=== PATIENT | male | born 1945 | race Caucasian/White ===

== ENCOUNTER → 2018-07-08 09:02 | Outpatient (CLI) | payer MEDICARE, MEDICAID, SELFPAY ==
[2018-07-08 10:01] LABS: Alanine Aminotransferase 33 IU/L (21-72); Albumin 4.6 g/dL (3.5-5.0); Albumin Globulin Ratio 1.5 (1.0-2.8); Alkaline Phosphatase 71 U/L (38-126); Aspartate Aminotransferase 27 IU/L (17-59); BUN Creatinine Ratio 17.8 (6-22); Blood Urea Nitrogen 16 mg/dL (9-20); Calcium 9.4 mg/dL (8.4-10.2); Carbon Dioxide 27 mmol/L (22-32); Chloride 105 mmol/L (98-107); Cholesterol 139 mg/dL (140-199); Estimated Glomerular Filt Rate > 60.0 mL/min (>60); Globulin 3.1 g/dL (1.7-4.1); Glucose 105 mg/dL (80-110); HDL Cholesterol 58 mg/dL (40-60); HEMOLYSIS < 15 (0-50); LDL Cholesterol Calculated 64 mg/dL (<100); Potassium 4.4 mmol/L (3.4-5.1); Sodium 141 mmol/L (137-145); Total Protein 7.7 g/dL (6.3-8.2); Triglycerides 86 mg/dL (35-150)
[2018-07-08 10:57] LABS: Thyroid Stimulating Hormone 1.36 uIU/mL (0.47-4.68)
== END ==
PROVIDERS: PCP Physician Assistant; Visit Provider Physician Assistant
DX: E78.5 Hyperlipidemia, unspecified (principal); Z51.81 Encounter for therapeutic drug level monitoring
CPT/HCPCS: 36415; 80053; 80061; 84443

== ENCOUNTER → 2018-07-27 08:46 | Outpatient (CLI) | payer MEDICARE, MEDICAID, SELFPAY ==
--- NOTE | 2018-07-27 08:49 | DI.RAD.S_ITS ---
PROCEDURE: XR KNEE RT 3V INDICATIONS: Right knee pain - please do one weight bearing view TECHNIQUE: 3 views of the knee were acquired. COMPARISON: [facility], , KNEE 3V RIGHT, 07/31/2016, 8:12. FINDINGS: Bones: No fractures or dislocations. No suspicious bony lesions. Soft tissues: No joint effusion. No suspicious soft tissue calcifications. Vascular calcifications. IMPRESSION: No acute fractures or dislocations. Please note, the lateral view is weight bearing. Dictated by: Mahin Hunt M.D. on 07/27/2018 at 10:19 Approved by: Mahin Hunt M.D. on 07/27/2018 at 10:20
--- NOTE | 2018-07-27 08:49 | DI.RAD.S_ITS ---
PROCEDURE: XR KNEE LT 3V INDICATIONS: Left knee pain - please do one weight bearing view TECHNIQUE: 3 views of the knee were acquired. COMPARISON: None. FINDINGS: Bones: No fractures or dislocations. No suspicious bony lesions. Soft tissues: No joint effusion. No suspicious soft tissue calcifications. Vascular calcifications. IMPRESSION: No acute fractures or dislocations. Dictated by: Mahin Hunt M.D. on 07/27/2018 at 10:21 Approved by: Mahin Hunt M.D. on 07/27/2018 at 10:21
[2018-07-27 10:03] LABS: Add Manual Diff / Slide Review NO; Basophils Percent Auto 0.7 % (0-2); Eosinophils Percent Auto 0.2 % (2-4); Hematocrit 51.4 % (41-53); Hemoglobin 17.4 g/dL (13.5-17.5); Lymphocytes Percent Auto 19.3 % (25-40); Mean Corpuscular HGB Conc 33.9 % (30-36); Mean Corpuscular Hemoglobin 31.6 PG (26-34); Mean Corpuscular Volume 93.2 fL (80-100); Monocytes Percent Auto 6.9 % (3-14); Neutrophils Absolute Auto 7800 /uL (3000-5900); Neutrophils Percent Auto 72.9 % (50-75); Platelet Count 243 X10^3/uL (150-400); Red Blood Cell Count 5.52 X10^6/uL (4.5-5.9); Red Cell Distribution Width 13.6 % (11.6-14.8); White Blood Cell Count 10.7 X10^3/uL (4.5-11.0)
[2018-07-27 10:49] LABS: Ferritin 39.6 ng/mL (17.9-464)
[2018-07-27 11:03] LABS: Vitamin B12 237 pg/mL (239-931)
[2018-07-27 11:13] LABS: HEMOLYSIS 49 (0-50); Iron 115 ug/dL (49-181)
[2018-07-27 11:24] LABS: Percent Iron Saturation 32 % (20-50); Total Iron Binding Capacity 365 ug/dL (261-462); Transferrin 299 mg/dL (206-381)
== END ==
PROVIDERS: PCP Physician Assistant; Visit Provider Physician Assistant
DX: M25.561 Pain in right knee (principal); M25.562 Pain in left knee
CPT/HCPCS: 36415; 73562; 82607; 82728; 83540; 83550; 85025

== ENCOUNTER 2018-08-25 09:03 | Emergency (ER) | payer MEDICARE, MEDICAID, SELFPAY ==
[2018-08-25 09:20] VITALS: BMI 22.2
--- NOTE | 2018-08-25 09:20 | ED.MALEGU ---
HPI - Male Genitourinary General Chief complaint: Urogenital-Male Stated complaint: Bloody Urine Time Seen by Provider: 08/25/18 09:19 Source: patient Mode of arrival: ambulatory Limitations: no limitations History of Present Illness HPI Narrative: Patient is a 73-year-old male presenting with jaylon hematuria. He says it started this morning. He has had this in the past required of Eagle catheter for 6 months before he had at least a partial prostatectomy. As he now does not want a Eagle catheter although I have explained that he absolutely needs 1. He is agreeable. He denies abdominal pain nausea vomiting or flank pain. Related Data Home Medications Medication Instructions Recorded Confirmed aspirin 325 mg PO QDAY #0 05/31/13 08/10/18 Previous Rx's Medication Instructions Recorded pneumoc 13-jose conj-dip cr(PF) 0.5 ml IM X1 #1 ea 12/29/17 [Prevnar 13 (PF)] atorvastatin 40 mg tablet 40 mg PO HS #90 tab 06/11/18 Adult Diapers #30 each 08/10/18 Allergies Allergy/AdvReac Type Severity Reaction Status Date / Time No Known Drug Allergies Allergy Verified 08/25/18 09:19 Review of Systems Review of Systems All systems reviewed & are unremarkable except as noted in HPI and below Constitutional Denies chills, Denies fever(s), Denies lethargy and Denies weakness Cardiovascular Denies chest pain, Denies irregular heart rhythm, Denies lightheadedness, Denies palpitations, Denies dyspnea, Denies dyspnea on exertion and Denies orthopnea Respiratory Denies cough, Denies dyspnea, Denies dyspnea on exertion and Denies wheezing Gastrointestinal Gastrointestinal: Reports as per HPI Genitourinary Reports as per HPI and Reports hematuria Musculoskeletal Denies back pain, Denies muscle weakness, Denies numbness and Denies tingling Integumentary/Breasts Denies pruritus, Denies erythema, Denies rash and Denies wounds Neurologic Denies confusion, Denies numbness, Denies tingling and Denies weakness Psychiatric Denies anxiety, Denies confusion, Denies depression, Denies homicidal ideation and Denies suicidal ideation Endocrine Denies palpitations Allergic/Immunologic Denies wheezing PFSH Medical History Arthritis (Chronic) BPH (benign prostatic hyperplasia) (Chronic) Depression (Chronic) Hyperlipemia (Chronic) Hypertension (Chronic) Osteopenia (Chronic) Osteoporosis (Chronic) Colon polyps (Resolved) Hernia (Resolved) History of alcohol abuse (Resolved 1980) Shoulder pain (Resolved) Urinary retention (Resolved ~04/2017) Surgical History Hx of cystoscopy (Acute 04/2017) Hx of transurethral resection of prostate (Resolved 04/2017) History of cataract removal with insertion of prosthetic lens (02/2016) Status post colectomy (2010) Status post hernia repair (05/2013) Family History Father Alcohol abuse Smoker Mother Osteoporosis Social History Smoking Status: Never smoker second hand exposure: No alcohol intake: former (the last drink I had was in April of 1981.) substance use type: does not use Exam Initial Vital Signs Initial Vital Signs: Vital Signs Pulse Rate 54 L 08/25/18 10:50 Respiratory Rate 20 08/25/18 10:50 Blood Pressure 160/97 H 08/25/18 10:50 Pulse Oximetry 99 08/25/18 10:50 GENERAL: Well-appearing, well-nourished and in no acute distress. HEENT: Head atraumatic,EOMI, pupils reactive, face symmetric, moist mucous membranes CARDIOVASCULAR: Regular rate and rhythm without murmurs, rubs or gallops. RESPIRATORY: Breath sounds equal bilaterally, no wheezes rales or rhonchi. ABDOMEN: Soft, nontender. Normoactive bowel sounds all 4 quadrants. No guarding or rebound. : Gross hematuria EXTREMITIES: Normal range of motion, no clubbing or edema. Neurovascularly intact NEUROLOGICAL: Alert and oriented x4.Normal gait and speech. Cranial nerves II through XII grossly intact. SKIN: Warm, dry, no laceration, no petechiae, no rashes or lesions. Course Orders Ordered: ED Orders 08/25/18 10:10 Basic Metabolic Panel Stat Complete Blood Count AUTO DIFF Stat Vital Signs - 8 hr 08/25/18 10:50 Pulse Rate 54 L Respiratory Rate 20 Blood Pressure 160/97 H Pulse Oximetry 99 MDM - Male Genitourinary Lab Data Result diagrams: 08/25/18 10:10 08/25/18 10:10 Lab Results 08/25/18 08/25/18 Range/Units 10:10 10:10 WBC 8.6 (4.5-11.0) X10^3/uL RBC 5.19 (4.5-5.9) X10^6/uL Hgb 16.5 (13.5-17.5) g/dL Hct 47.3 (41-53) % MCV 91.1 (80-100) fL MCH 31.7 (26-34) PG MCHC 34.8 (30-36) % RDW 14.0 (11.6-14.8) % Plt Count 212 (150-400) X10^3/uL Neut % (Auto) 73.3 (50-75) % Lymph % (Auto) 18.8 L (25-40) % [place] % (Auto) 6.7 (3-14) % Eos % (Auto) 0.5 L (2-4) % Baso % (Auto) 0.7 (0-2) % Neut # (Auto) 6300 H (9254-1311) /uL Sodium 144 (137-145) mmol/L Potassium 3.9 (3.4-5.1) mmol/L Chloride 109 H (98-107) mmol/L Carbon Dioxide 23 (22-32) mmol/L BUN 15 (9-20) mg/dL Creatinine 0.80 (0.66-1.25) mg/dL Estimated GFR > 60.0 (>60) mL/min BUN/Creatinine Ratio 18.8 (6-22) Glucose 98 (80-110) mg/dL Calcium 9.2 (8.4-10.2) mg/dL MDM Narrative Medical decision making narrative: Patient can no longer handle the Eagle catheter or irrigation. His the fluid has cleared up quite a bit although still slightly dark. I have offered to slow the fluid down however he is adamant about leaving and does not want a Eagle catheter in. I have discussed with them that he will likely return and need Eagle catheter placement. He understands he agrees he would still like a Eagle catheter pulled a like to go. The patient is clinically sober, free from distracting injury, appears to have intact insight, judgment and reason. Does not meet criteria for involuntary hospitalization. Patient has the capacity to make decisions. Discharge Plan Departure Patient Disposition: Home Clinical Impression: Hematuria Discharge Date/Time: 08/25/18 10:53 Interventions: ED Discharge Assessment Last Done: 08/25/18 10:50 Instructions: DI for Hematuria Activity Restrictions/Additional Instructions: *You have been diagnosed with hematuria *What to do: He may require Eagle catheter placement if blood returns or if you are unable to pee. Inability to pee can cause rupture of bladder. *Continue to take medications as directed *Follow up with your primary care provider in 2-3 days *Return to ER if you should have inability to pee, but gross blood or any new, worsening or concerning symptoms Prescriptions: No Action Adult Diapers Qty: 30 RF: 12 aspirin 325 MG tablet,delayed release (DR/EC) 325 mg PO QDAY Qty: 0 RF: 0 pneumoc 13-jose conj-dip cr(PF) [Prevnar 13 (PF)] 0.5 ML syringe 0.5 ml IM X1 Qty: 1 RF: 0 atorvastatin 40 mg tablet 40 mg PO HS Qty: 90 RF: 0 Referrals: Katia Frances PA-C [Primary Care Provider] -
--- NOTE | 2018-08-25 10:00 | PC.NURSE ---
bladder irrigation started per provider verbal orders. pt tolerating irrigation treatment.
[2018-08-25 10:32] LABS: Add Manual Diff / Slide Review NO; Basophils Percent Auto 0.7 % (0-2); Eosinophils Percent Auto 0.5 % (2-4); Hematocrit 47.3 % (41-53); Hemoglobin 16.5 g/dL (13.5-17.5); Lymphocytes Percent Auto 18.8 % (25-40); Mean Corpuscular HGB Conc 34.8 % (30-36); Mean Corpuscular Hemoglobin 31.7 PG (26-34); Mean Corpuscular Volume 91.1 fL (80-100); Monocytes Percent Auto 6.7 % (3-14); Neutrophils Absolute Auto 6300 /uL (3000-5900); Neutrophils Percent Auto 73.3 % (50-75); Platelet Count 212 X10^3/uL (150-400); Red Blood Cell Count 5.19 X10^6/uL (4.5-5.9); White Blood Cell Count 8.6 X10^3/uL (4.5-11.0)
[2018-08-25 10:44] LABS: BUN Creatinine Ratio 18.8 (6-22); Blood Urea Nitrogen 15 mg/dL (9-20); Calcium 9.2 mg/dL (8.4-10.2); Carbon Dioxide 23 mmol/L (22-32); Chloride 109 mmol/L (98-107); Estimated Glomerular Filt Rate > 60.0 mL/min (>60); Glucose 98 mg/dL (80-110); HEMOLYSIS < 15 (0-50); Potassium 3.9 mmol/L (3.4-5.1); Sodium 144 mmol/L (137-145)
[2018-08-25 10:50] VITALS: BP 160/97; PULSE 54; RESP 20; O2SAT 99
== END 2018-08-25 10:53 | disposition home or self-care (01) ==
PROVIDERS: Emergency Provider Emergency Medicine; Family Provider Physician Assistant; PCP Physician Assistant
DX: R31.9 Hematuria, unspecified (principal)
CPT/HCPCS: 51701; 80048; 85025; 99283

== ENCOUNTER 2018-09-01 09:05 | Inpatient (IN) | payer MEDICARE, MEDICAID, SELFPAY ==
[2018-09-01] VITALS (9 sets, daily range): BP systolic 114–161; BP diastolic 64–88; PULSE 76–99; RESP 16–22; TEMP 36.2–36.6; O2SAT 97–100; BMI 21.0
--- NOTE | 2018-09-01 09:53 | ED.ABDPAIN ---
HPI - Abdominal Pain General Chief Complaint: Abdominal Pain Stated Complaint: everything Time Seen by Provider: 09/01/18 09:37 Source: patient Mode of arrival: ambulatory Limitations: no limitations History of Present Illness HPI narrative: 73-year-old pleasantly confused male presents with a chief complaint of severe abdominal discomfort for the past few days. He states that he has had no appetite and has had nausea and vomiting. He states he has not eaten anything in days. He is dizzy, weak and lightheaded. He was seen a few days ago for hematuria and was told he needed a Eagle catheter but insisted on it being removed. He presents today under the above circumstances. He denies any fever or chills. He has nausea but no vomiting. He denies any change in bowel habits. He admits to bloody urine MD complaint: abdominal pain Onset (ago): day(s) Pain Consistency: constant Location: diffuse Severity: moderate Quality: cramping and aching Radiation: none Migration to: no migration Relieving factors: nothing Exacerbating factors: movement Associated symptoms: nausea and anorexia Related Data Home Medications Medication Instructions Recorded Confirmed aspirin 325 mg PO BEDTIME #0 05/31/13 09/01/18 Previous Rx's Medication Instructions Recorded atorvastatin 40 mg tablet 40 mg PO HS #90 tab 06/11/18 Adult Diapers #30 each 08/10/18 Allergies Allergy/AdvReac Type Severity Reaction Status Date / Time No Known Drug Allergies Allergy Verified 08/25/18 09:19 Review of Systems Review of Systems All systems reviewed & are unremarkable except as noted in HPI and below Constitutional Denies chills, Reports fatigue, Denies fever(s), Denies lethargy, Reports poor appetite and Reports weakness Eyes Denies change in vision, Denies eye discharge, Denies irritation and Denies loss of vision ENT Ears, Nose, Mouth, and Throat: Denies change in voice, Denies neck pain and Denies sore throat Cardiovascular Denies chest pain, Denies irregular heart rhythm, Denies lightheadedness, Denies palpitations, Denies dyspnea, Denies dyspnea on exertion and Denies orthopnea Respiratory Denies cough, Denies dyspnea, Denies dyspnea on exertion and Denies wheezing Gastrointestinal Gastrointestinal: Reports abdominal pain, Denies change in bowel habits, Denies diarrhea, Reports nausea and Denies vomiting Genitourinary Reports hematuria, Denies flank pain, Denies urinary incontinence and Denies urinary urgency Musculoskeletal Denies neck pain Integumentary/Breasts Denies pruritus, Denies erythema, Denies rash and Denies wounds Neurologic Denies confusion, Denies loss of vision and Reports weakness Psychiatric Denies anxiety, Denies confusion, Denies depression, Denies homicidal ideation and Denies suicidal ideation Endocrine Reports fatigue and Denies palpitations Hematologic/Lymphatic Denies easy bruising Allergic/Immunologic Denies wheezing PFSH Medical History Arthritis (Chronic) BPH (benign prostatic hyperplasia) (Chronic) Depression (Chronic) Hyperlipemia (Chronic) Hypertension (Chronic) Osteopenia (Chronic) Osteoporosis (Chronic) Colon polyps (Resolved) Hernia (Resolved) History of alcohol abuse (Resolved 1980) Shoulder pain (Resolved) Urinary retention (Resolved ~04/2017) Surgical History Hx of cystoscopy (Acute 04/2017) Hx of transurethral resection of prostate (Resolved 04/2017) History of cataract removal with insertion of prosthetic lens (02/2016) Status post colectomy (2010) Status post hernia repair (05/2013) Family History: Reviewed 09/01/18 by Stephanie Macias MD Social History Smoking Status: Never smoker second hand exposure: No alcohol intake: former substance use type: does not use Exam Narrative Exam Narrative: 73-year-old male appears in distress, generally unwell, disheveled, confused, clearly dehydrated with dry mucous membranes Initial Vital Signs Initial Vital Signs: Vital Signs Pulse Rate 99 H 09/01/18 09:10 Respiratory Rate 18 09/01/18 09:10 Blood Pressure 152/85 H 09/01/18 09:10 Pulse Oximetry 100 09/01/18 09:10 Const General: cooperative, well developed, in distress, disheveled, frail appearing and ill appearing Nutritional Appearance: well nourished Orientation: alert, awake, oriented x3 and not confused HENMT Head: normocephalic and atraumatic Ears: external ears normal and TM's normal bilaterally Nose: external nose normal and No nasal discharge Face and sinus: sinuses nontender, face symmetric, no sinus tenderness and dry mucous membranes Teeth and gingiva: dentition normal Throat: tonsils normal and uvula midline Eyes General: appearance normal, both eyes and all related structures Eyelids: eyelids normal Conjunctivae: conjunctivae normal Sclera: sclerae normal Pupils: PERRL EOM: EOM intact bilaterally Neck Neck: normal visual inspection, trachea midline, No lymphadenopathy, No midline deformity and No JVD Lymphatic: No lymphedema Chest Chest: normal inspection of the chest Resp Effort & Inspection: normal respiratory effort, able to speak in complete sentences, no respiratory distress and no use of accessory muscles Auscultation: clear to auscultation bilaterally, no rales, no rhonchi and no wheezes Cardio Rate: regular rate Rhythm: regular rhythm Heart Sounds: no click, no gallops, no murmurs and no rubs Pulses: normal peripheral pulses GI Inspection: distended Palpation: soft, no hepatosplenomegaly, No guarding, No pulsatile mass and No tender Auscultation: normal bowel sounds Back/Spine/Pelvis Back: No CVA tenderness Cervical Spine: cervical ROM normal and No pain with cervical ROM Thoracic/Lumbar Spine: thoracic and lumbar spine normal to inspection Skin General: no rashes or lesions noted, No jaundice and No petechiae Neuro General: alert, awake, gait normal and no focal motor deficits Speech: speech normal Gait: normal gait Sensory Exam: no sensory deficits noted Extrem General: full ROM, no clubbing, cyanosis or edema, no pedal edema and no calf tenderness Psych Appearance: disheveled Mental Status: mental status grossly normal Thought Content: suicidality Judgment: judgment good Scores GCS [place] coma scale eye opening: Spontaneous [place] coma scale verbal response: Confused [place] coma scale motor response: Obey commands [place] coma scale total score: 14 Course Orders Ordered: ED Orders 09/01/18 11:12 Complete Blood Count AUTO DIFF Stat Comprehensive Metabolic Panel Stat Lipase Stat 09/01/18 13:00 UA Complete [Urinalysis and Microscopic] Stat Urine Culture Stat 09/01/18 17:24 Education, smoking cessation ONGOING 09/01/18 17:26 Consult to Occupational Therapy Evaluate & Treat Consult to Physical Therapy Evaluate & Treat 09/02/18 05:00 Basic Metabolic Panel Routine Complete Blood Count AUTO DIFF Routine Acetaminophen (Tylenol) 650 mg PO Q6HR PRN PRN Reason: As Needed for Fever/Mild Pain Hydrocodone Bitart/Acetaminophen ([place] 5/325) 1 tab PO Q4HR PRN PRN Reason: Pain, Moderate (4-6) Aspirin (Aspirin) 325 mg PO DAILY [facility] Atorvastatin Calcium (Lipitor) 40 mg PO BEDTIME SKY Bisacodyl (Dulcolax) 10 mg MI DAILY PRN PRN Reason: Constipation Docusate Sodium (Colace) 100 mg PO BID [facility] Enoxaparin Sodium (Lovenox) 40 mg SUBCUT DAILY [facility] Ceftriaxone Sodium/Dextrose (Rocephin) 1 gm in 50 mls @ 100 mls/hr IV Q24H SKY Sodium Chloride (Normal Saline 0.45%) 1,000 mls @ 125 mls/hr IV CONT SKY Last Admin: 09/01/18 18:17 Dose: 125 mls/hr Ondansetron HCl (Zofran) 4 mg IV Q8HR PRN PRN Reason: Nausea And Vomiting Discontinued Medications Sodium Chloride (Normal Saline 0.9%) 1,000 mls @ 1,000 mls/hr IV BOLUS ONE Stop: 09/01/18 11:05 Last Infusion: 09/01/18 13:17 Dose: 0 mls/hr Admin: 09/01/18 11:30 Dose: 1,000 mls/hr Ceftriaxone Sodium/Dextrose (Rocephin) 1 gm in 50 mls @ 100 mls/hr IV NOW ONE Stop: 09/01/18 15:38 Last Infusion: 09/01/18 16:00 Dose: 0 mls/hr Admin: 09/01/18 15:23 Dose: 100 mls/hr Sodium Chloride (Normal Saline 0.9%) 1,000 mls @ 1,000 mls/hr IV BOLUS ONE Stop: 09/01/18 16:08 Last Infusion: 09/01/18 15:59 Dose: 0 mls/hr Admin: 09/01/18 15:22 Dose: 1,000 mls/hr Sodium Chloride (Normal Saline 0.9%) 1,000 mls @ 100 mls/hr IV CONT [facility] Last Admin: 09/01/18 20:01 Dose: Vital Signs - 8 hr 09/01/18 12:36 09/01/18 14:06 09/01/18 14:42 Temperature Pulse Rate 76 78 87 Respiratory Rate 16 20 Blood Pressure Blood Pressure [Left Arm] 139/84 114/72 161/79 H Pulse Oximetry 99 98 100 09/01/18 15:04 09/01/18 16:23 Temperature 97.1 F L Pulse Rate 82 88 Respiratory Rate 22 19 Blood Pressure 119/83 Blood Pressure [Left Arm] 133/64 Pulse Oximetry 97 97 MDM - Abdominal Pain Lab Data Result diagrams: 09/01/18 11:12 09/01/18 11:12 Lab Results 09/01/18 09/01/18 09/01/18 Range/Units 11:12 11:12 13:00 WBC 16.6 H (4.5-11.0) X10^3/uL RBC 5.71 (4.5-5.9) X10^6/uL Hgb 18.4 H (13.5-17.5) g/dL Hct 52.3 (41-53) % MCV 91.6 (80-100) fL MCH 32.2 (26-34) PG MCHC 35.1 (30-36) % RDW 14.6 (11.6-14.8) % Plt Count 340 (150-400) X10^3/uL Neut % (Auto) Not Reportable Lymph % (Auto) Not Reportable [place] % (Auto) Not Reportable Eos % (Auto) Not Reportable Baso % (Auto) Not Reportable Total Counted 100 Seg Neutrophils % 67.0 (38-70) % Band Neutrophils % 13.0 H (3-7) % Lymphocytes % (Manual) 9.0 L (25-45) % Monocytes % (Manual) 10.0 (2-11) % Myelocytes % 1.0 H (-0) % Neutrophils # (Manual) 63011 H (1881-4404) /uL RBC Morphology Normal morphology Sodium 147 H (137-145) mmol/L Potassium 5.3 H D (3.4-5.1) mmol/L Chloride 105 (98-107) mmol/L Carbon Dioxide 23 (22-32) mmol/L BUN 66 H (9-20) mg/dL Creatinine 1.20 (0.66-1.25) mg/dL Estimated GFR 59.7 L (>60) mL/min BUN/Creatinine Ratio 55.0 H (6-22) Glucose 163 H (80-110) mg/dL Calcium 10.6 H (8.4-10.2) mg/dL Total Bilirubin 1.2 (0.2-1.3) mg/dL AST 40 (17-59) IU/L ALT 30 (21-72) IU/L Alkaline Phosphatase 130 H (38-126) U/L Total Protein 8.6 H (6.3-8.2) g/dL Albumin 4.3 (3.5-5.0) g/dL Globulin 4.3 H (1.7-4.1) g/dL Albumin/Globulin Ratio 1.0 (1.0-2.8) Lipase 154 (23-300) U/L Urine Color Brown Urine Appearance Turbid Urine pH 8.0 (4.5-8.0) Ur Specific [place] 1.015 (1.000-1.035) Urine Protein 3+ H (Negative) Urine Glucose (UA) Negative (Normal) g/dL Urine Ketones Trace H (NEGATIVE) Urine Occult Blood 3+ H (Negative) Urine Nitrate Negative (Negative) Urine Bilirubin Negative (NEGATIVE) Urine Urobilinogen 0.2 (0.2) E.U./dL Ur Leukocyte Esterase 1+ H (NEGATIVE) Urine RBC 10-30/hpf H (0-5/HPF) Urine WBC >100/hpf H (0-5/HPF) Ur Squamous Epith Cells 0-1 /hpf Triple Phos Crystals Moderate Amorphous Sediment 2+ Urine Bacteria Many (>30) H (None) Urine Mucus 3+ H (Negative) Ur Culture Indicated? Specimen cultured Micro UA Comment Not Reportable MDM Narrative Medical decision making narrative: Patient has abdominal pain and bladder scanned noting greater than 1 L his bladder. He has known prostate problems. Eagle catheter placed and drained 2000 mL of very foul-smelling, bloody urine. The patient is frail and weak, obviously dehydrated and malnourished. He lives at an adult boarding house locally and has poor support. Discharge Plan Departure Patient Disposition: Admitted As Inpatient Clinical Impression: Acute UTI, Acute metabolic encephalopathy, Acute dehydration, Adult failure to thrive Discharge Date/Time: 09/01/18 15:49 Interventions: ED Discharge Assessment Last Done: 09/01/18 15:49 Admit Date/Time: 09/01/18 15:46 Admit Provider: Stephanie Macias
--- NOTE | 2018-09-01 10:07 | DI.RAD.S_ITS ---
PROCEDURE: XR ACUTE ABDOMEN SERIES INDICATIONS: Abdominal pain TECHNIQUE: One view chest and two views of the abdomen were acquired. COMPARISON: [facility], CT, ABDOMEN/PELVIS WITH CONTRAST, 06/14/2017, 23:45. FINDINGS: Surgical changes and devices: Right lower quadrant clips are seen. Chest: Lungs are clear. Heart size is normal. No pleural effusions. No pneumoperitoneum. Abdomen: Bowel gas pattern is normal. No suspicious calcifications. Visualized solid organ contours appear normal. Bones: No suspicious bony lesions. Age-appropriate bony degenerative changes are seen. IMPRESSION: Clear lungs. A nonobstructive bowel gas pattern is seen. As clinically appropriate, please consider a repeat plain film study or a dedicated CT of the abdomen and pelvis, if the patient's symptoms persist or worsen. Right lower quadrant clips are seen. Dictated by: Jm Madera M.D. on 09/01/2018 at 9:49 Approved by: Jm Madera M.D. on 09/01/2018 at 9:53
--- NOTE | 2018-09-01 10:53 | DI.CT.S_ITS ---
PROCEDURE: CT ABDOMEN PELVIS W CON INDICATIONS: abdominal and pelvic pain TECHNIQUE: After the administration of intravenous contrast, 5 mm thick sections acquired from the diaphragm to the symphysis. 5 mm coronal and sagittal reformats were acquired. For radiation dose reduction, the following was used: automated exposure control, adjustment of mA and/or kV according to patient size. COMPARISON: [facility], CT, ABDOMEN/PELVIS WITH CONTRAST, 06/14/2017, 23:45. FINDINGS: Image quality: Excellent. ABDOMEN: Lung bases: Minimal bibasilar atelectasis. Heart size is normal. Solid organs: Liver is normal in size and enhancement. Multiple subcentimeter hypoattenuating foci within the liver are too small to characterize on this exam, likely represent hepatic cysts. Gallbladder demonstrates a 1.2 similar gallstone with a 0.5 cm stone in the cystic duct. There is no evidence of gallbladder wall thickening, pericholecystic fluid, or pericholecystic inflammation. Biliary system is non dilated. Pancreas enhances normally. Spleen is normal in size and enhancement. There is a 1.2 cm rounded right adrenal nodule that is unchanged from comparison exam of 06/14/17. Kidneys demonstrate normal size and enhancement, without hydronephrosis. Peritoneum and bowel: Suspected postsurgical changes of the bowel with an apparent surgical anastomosis in the right upper quadrant of the abdomen. No free fluid or air. There is an unchanged 1.0 cm soft tissue nodule along the posterior right upper quadrant peritoneal wall, just posterior to the liver. Nodes and vessels: No retroperitoneal or mesenteric adenopathy by size criteria. Aorta and inferior vena cava are normal in size. Miscellaneous: There is a small bowel-containing midline ventral abdominal wall hernia with an adjacent smaller fat-containing hernia just to the right of midline. PELVIS: Genitourinary: There is a severely distended bladder measuring up to 17.7 cm transverse by 12.1 cm anteroposterior by 18.2 cm craniocaudal Miscellaneous: There is a small fat-containing right indirect inguinal hernia. Bones: No suspicious bony lesions. No vertebral body compression fractures. Mild multilevel degenerative changes of the spine. IMPRESSION: #1. Severely distended bladder occupying the majority of the lower abdomen and pelvis, measuring up to 18.2 x 17.7 x 12.1 cm and likely secondary to bladder outlet obstruction from the enlarged irregular enhancing prostate gland. Irregularity and enhancement of the prostate raises concern for possible prostate malignancy. #2. Cholelithiasis with a 0.5 cm stone within the cystic duct. This can represent a source of pain. There are no additional findings of acute cholecystitis, however. Findings discussed with referring provider Dr. Tremayne Lucero of the [facility] emergency department at 12:17 PM on 09/01/[address] Martin. Dictated by: Erick Martin M.D. on 09/01/2018 at 12:11 Approved by: Erick Martin M.D. on 09/01/2018 at 12:35
[2018-09-01 11:29] LABS: Mean Corpuscular HGB Conc 35.1 % (30-36); Mean Corpuscular Hemoglobin 32.2 PG (26-34); Mean Corpuscular Volume 91.6 fL (80-100); Platelet Count 340 X10^3/uL (150-400); Red Blood Cell Count 5.71 X10^6/uL (4.5-5.9); Red Cell Distribution Width 14.6 % (11.6-14.8); White Blood Cell Count 16.6 X10^3/uL (4.5-11.0)
[2018-09-01] MEDS: SODIUM CHLORIDE 0.9% 1,000 ML 1000 ML IV ×2 (11:30→15:22)
[2018-09-01 11:36] LABS: Alanine Aminotransferase 30 IU/L (21-72); Albumin 4.3 g/dL (3.5-5.0); Alkaline Phosphatase 130 U/L (38-126); Aspartate Aminotransferase 40 IU/L (17-59); Bilirubin Total 1.2 mg/dL (0.2-1.3); Blood Urea Nitrogen 66 mg/dL (9-20); Calcium 10.6 mg/dL (8.4-10.2); Carbon Dioxide 23 mmol/L (22-32); Chloride 105 mmol/L (98-107); Estimated Glomerular Filt Rate 59.7 mL/min (>60); Globulin 4.3 g/dL (1.7-4.1); Glucose 163 mg/dL (80-110); HEMOLYSIS 41 (0-50); Lipase 154 U/L (23-300); Potassium 5.3 mmol/L (3.4-5.1); Sodium 147 mmol/L (137-145); Total Protein 8.6 g/dL (6.3-8.2)
[2018-09-01 11:37] LABS: Add Manual Diff / Slide Review YES; Hematocrit 52.3 % (41-53); Hemoglobin 18.4 g/dL (13.5-17.5)
[2018-09-01 12:12] LABS: Neutrophils Absolute Manual 13280 /uL (3000-5900); Total Cells Counted 100
[2018-09-01 12:15] LABS: RBC Morphology Normal Morphology
--- NOTE | 2018-09-01 13:09 | PC.NURSE ---
2000 cc drained from knott upon insertion
[2018-09-01 13:41] LABS: Appearance Urine UA TURBID; Bilirubin Urine UA NEGATIVE (NEGATIVE); Color Urine UA BROWN; Glucose Urine UA NEGATIVE (Normal); Ketones Urine UA TRACE (NEGATIVE); Leukocyte Esterase Urine UA 1+ (NEGATIVE); Nitrite Urine UA Negative (Negative); Occult Blood Urine UA 3+ (Negative); Protein Urine UA 3+ (Negative); Specific Gravity Urine UA 1.015 (1.000-1.035); Urobilinogen Urine UA 0.2 E.U./dL (0.2)
[2018-09-01 13:47] LABS: RBC Urine 10-30/HPF (0-5/HPF)
[2018-09-01 13:48] LABS: Amorphous Sediment Urine 2+; Bacteria Urine Many (>30); Mucus Urine 3+ (Negative); Squamous Epithelial Cell Urine 0-1 /HPF; Triple Phosphate Crystal Urine Moderate; WBC Urine >100/HPF (0-5/HPF)
[2018-09-01 13:49] LABS: Culture Indicated Urine Specimen Cultured
--- NOTE | 2018-09-01 15:18 | ED_ITS ---
HPI - Abdominal Pain General Chief Complaint: Abdominal Pain Stated Complaint: everything Time Seen by Provider: 09/01/18 09:37 Source: patient Mode of arrival: ambulatory Limitations: no limitations History of Present Illness HPI narrative: 73-year-old pleasantly confused male presents with a chief complaint of severe abdominal discomfort for the past few days. He states that he has had no appetite and has had nausea and vomiting. He states he has not eaten anything in days. He is dizzy, weak and lightheaded. He was seen a few days ago for hematuria and was told he needed a Eagle catheter but insisted on it being removed. He presents today under the above circumstances. He denies any fever or chills. He has nausea but no vomiting. He denies any change in bowel habits. He admits to bloody urine MD complaint: abdominal pain Onset (ago): day(s) Pain Consistency: constant Location: diffuse Severity: moderate Quality: cramping and aching Radiation: none Migration to: no migration Relieving factors: nothing Exacerbating factors: movement Associated symptoms: nausea and anorexia Related Data Home Medications Medication Instructions Recorded Confirmed aspirin 325 mg PO BEDTIME #0 05/31/13 09/01/18 Previous Rx's Medication Instructions Recorded atorvastatin 40 mg tablet 40 mg PO HS #90 tab 06/11/18 Adult Diapers #30 each 08/10/18 Allergies Allergy/AdvReac Type Severity Reaction Status Date / Time No Known Drug Allergies Allergy Verified 08/25/18 09:19 Review of Systems Review of Systems All systems reviewed & are unremarkable except as noted in HPI and below Constitutional Denies chills, Reports fatigue, Denies fever(s), Denies lethargy, Reports poor appetite and Reports weakness Eyes Denies change in vision, Denies eye discharge, Denies irritation and Denies loss of vision ENT Ears, Nose, Mouth, and Throat: Denies change in voice, Denies neck pain and Denies sore throat Cardiovascular Denies chest pain, Denies irregular heart rhythm, Denies lightheadedness, Denies palpitations, Denies dyspnea, Denies dyspnea on exertion and Denies orthopnea Respiratory Denies cough, Denies dyspnea, Denies dyspnea on exertion and Denies wheezing Gastrointestinal Gastrointestinal: Reports abdominal pain, Denies change in bowel habits, Denies diarrhea, Reports nausea and Denies vomiting Genitourinary Reports hematuria, Denies flank pain, Denies urinary incontinence and Denies urinary urgency Musculoskeletal Denies neck pain Integumentary/Breasts Denies pruritus, Denies erythema, Denies rash and Denies wounds Neurologic Denies confusion, Denies loss of vision and Reports weakness Psychiatric Denies anxiety, Denies confusion, Denies depression, Denies homicidal ideation and Denies suicidal ideation Endocrine Reports fatigue and Denies palpitations Hematologic/Lymphatic Denies easy bruising Allergic/Immunologic Denies wheezing PFSH Medical History Arthritis (Chronic) BPH (benign prostatic hyperplasia) (Chronic) Depression (Chronic) Hyperlipemia (Chronic) Hypertension (Chronic) Osteopenia (Chronic) Osteoporosis (Chronic) Colon polyps (Resolved) Hernia (Resolved) History of alcohol abuse (Resolved 1980) Shoulder pain (Resolved) Urinary retention (Resolved ~04/2017) Surgical History Hx of cystoscopy (Acute 04/2017) Hx of transurethral resection of prostate (Resolved 04/2017) History of cataract removal with insertion of prosthetic lens (02/2016) Status post colectomy (2010) Status post hernia repair (05/2013) Family History: Reviewed 09/01/18 by Stephanie Macias MD Social History Smoking Status: Never smoker second hand exposure: No alcohol intake: former substance use type: does not use Exam Narrative Exam Narrative: 73-year-old male appears in distress, generally unwell, disheveled, confused, clearly dehydrated with dry mucous membranes Initial Vital Signs Initial Vital Signs: Vital Signs Pulse Rate 99 H 09/01/18 09:10 Respiratory Rate 18 09/01/18 09:10 Blood Pressure 152/85 H 09/01/18 09:10 Pulse Oximetry 100 09/01/18 09:10 Const General: cooperative, well developed, in distress, disheveled, frail appearing and ill appearing Nutritional Appearance: well nourished Orientation: alert, awake, oriented x3 and not confused HENMT Head: normocephalic and atraumatic Ears: external ears normal and TM's normal bilaterally Nose: external nose normal and No nasal discharge Face and sinus: sinuses nontender, face symmetric, no sinus tenderness and dry mucous membranes Teeth and gingiva: dentition normal Throat: tonsils normal and uvula midline Eyes General: appearance normal, both eyes and all related structures Eyelids: eyelids normal Conjunctivae: conjunctivae normal Sclera: sclerae normal Pupils: PERRL EOM: EOM intact bilaterally Neck Neck: normal visual inspection, trachea midline, No lymphadenopathy, No midline deformity and No JVD Lymphatic: No lymphedema Chest Chest: normal inspection of the chest Resp Effort & Inspection: normal respiratory effort, able to speak in complete sentences, no respiratory distress and no use of accessory muscles Auscultation: clear to auscultation bilaterally, no rales, no rhonchi and no wheezes Cardio Rate: regular rate Rhythm: regular rhythm Heart Sounds: no click, no gallops, no murmurs and no rubs Pulses: normal peripheral pulses GI Inspection: distended Palpation: soft, no hepatosplenomegaly, No guarding, No pulsatile mass and No tender Auscultation: normal bowel sounds Back/Spine/Pelvis Back: No CVA tenderness Cervical Spine: cervical ROM normal and No pain with cervical ROM Thoracic/Lumbar Spine: thoracic and lumbar spine normal to inspection Skin General: no rashes or lesions noted, No jaundice and No petechiae Neuro General: alert, awake, gait normal and no focal motor deficits Speech: speech normal Gait: normal gait Sensory Exam: no sensory deficits noted Extrem General: full ROM, no clubbing, cyanosis or edema, no pedal edema and no calf tenderness Psych Appearance: disheveled Mental Status: mental status grossly normal Thought Content: suicidality Judgment: judgment good Scores GCS Genaro coma scale eye opening: Spontaneous Genaro coma scale verbal response: Confused Genaro coma scale motor response: Obey commands Pingree coma scale total score: 14 Course Orders Ordered: ED Orders 09/01/18 11:12 Complete Blood Count AUTO DIFF Stat Comprehensive Metabolic Panel Stat Lipase Stat 09/01/18 13:00 UA Complete [Urinalysis and Microscopic] Stat Urine Culture Stat 09/01/18 17:24 Education, smoking cessation ONGOING 09/01/18 17:26 Consult to Occupational Therapy Evaluate & Treat Consult to Physical Therapy Evaluate & Treat 09/02/18 05:00 Basic Metabolic Panel Routine Complete Blood Count AUTO DIFF Routine Acetaminophen (Tylenol) 650 mg PO Q6HR PRN PRN Reason: As Needed for Fever/Mild Pain Hydrocodone Bitart/Acetaminophen ([place] 5/325) 1 tab PO Q4HR PRN PRN Reason: Pain, Moderate (4-6) Aspirin (Aspirin) 325 mg PO DAILY [facility] Atorvastatin Calcium (Lipitor) 40 mg PO BEDTIME SKY Bisacodyl (Dulcolax) 10 mg [place] DAILY PRN PRN Reason: Constipation Docusate Sodium (Colace) 100 mg PO BID [facility] Enoxaparin Sodium (Lovenox) 40 mg SUBCUT DAILY [facility] Ceftriaxone Sodium/Dextrose (Rocephin) 1 gm in 50 mls @ 100 mls/hr IV Q24H SKY Sodium Chloride (Normal Saline 0.45%) 1,000 mls @ 125 mls/hr IV CONT SKY Last Admin: 09/01/18 18:17 Dose: 125 mls/hr Ondansetron HCl (Zofran) 4 mg IV Q8HR PRN PRN Reason: Nausea And Vomiting Discontinued Medications Sodium Chloride (Normal Saline 0.9%) 1,000 mls @ 1,000 mls/hr IV BOLUS ONE Stop: 09/01/18 11:05 Last Infusion: 09/01/18 13:17 Dose: 0 mls/hr Admin: 09/01/18 11:30 Dose: 1,000 mls/hr Ceftriaxone Sodium/Dextrose (Rocephin) 1 gm in 50 mls @ 100 mls/hr IV NOW ONE Stop: 09/01/18 15:38 Last Infusion: 09/01/18 16:00 Dose: 0 mls/hr Admin: 09/01/18 15:23 Dose: 100 mls/hr Sodium Chloride (Normal Saline 0.9%) 1,000 mls @ 1,000 mls/hr IV BOLUS ONE Stop: 09/01/18 16:08 Last Infusion: 09/01/18 15:59 Dose: 0 mls/hr Admin: 09/01/18 15:22 Dose: 1,000 mls/hr Sodium Chloride (Normal Saline 0.9%) 1,000 mls @ 100 mls/hr IV CONT [facility] Last Admin: 09/01/18 20:01 Dose: Vital Signs - 8 hr 09/01/18 12:36 09/01/18 14:06 09/01/18 14:42 Temperature Pulse Rate 76 78 87 Respiratory Rate 16 20 Blood Pressure Blood Pressure [Left Arm] 139/84 114/72 161/79 H Pulse Oximetry 99 98 100 09/01/18 15:04 09/01/18 16:23 Temperature 97.1 F L Pulse Rate 82 88 Respiratory Rate 22 19 Blood Pressure 119/83 Blood Pressure [Left Arm] 133/64 Pulse Oximetry 97 97 MDM - Abdominal Pain Lab Data Result diagrams: 09/01/18 11:12 09/01/18 11:12 Lab Results 09/01/18 09/01/18 09/01/18 Range/Units 11:12 11:12 13:00 WBC 16.6 H (4.5-11.0) X10^3/uL RBC 5.71 (4.5-5.9) X10^6/uL Hgb 18.4 H (13.5-17.5) g/dL Hct 52.3 (41-53) % MCV 91.6 (80-100) fL MCH 32.2 (26-34) PG MCHC 35.1 (30-36) % RDW 14.6 (11.6-14.8) % Plt Count 340 (150-400) X10^3/uL Neut % (Auto) Not Reportable Lymph % (Auto) Not Reportable [place] % (Auto) Not Reportable Eos % (Auto) Not Reportable Baso % (Auto) Not Reportable Total Counted 100 Seg Neutrophils % 67.0 (38-70) % Band Neutrophils % 13.0 H (3-7) % Lymphocytes % (Manual) 9.0 L (25-45) % Monocytes % (Manual) 10.0 (2-11) % Myelocytes % 1.0 H (-0) % Neutrophils # (Manual) 05632 H (7949-3633) /uL RBC Morphology Normal morphology Sodium 147 H (137-145) mmol/L Potassium 5.3 H D (3.4-5.1) mmol/L Chloride 105 (98-107) mmol/L Carbon Dioxide 23 (22-32) mmol/L BUN 66 H (9-20) mg/dL Creatinine 1.20 (0.66-1.25) mg/dL Estimated GFR 59.7 L (>60) mL/min BUN/Creatinine Ratio 55.0 H (6-22) Glucose 163 H (80-110) mg/dL Calcium 10.6 H (8.4-10.2) mg/dL Total Bilirubin 1.2 (0.2-1.3) mg/dL AST 40 (17-59) IU/L ALT 30 (21-72) IU/L Alkaline Phosphatase 130 H (38-126) U/L Total Protein 8.6 H (6.3-8.2) g/dL Albumin 4.3 (3.5-5.0) g/dL Globulin 4.3 H (1.7-4.1) g/dL Albumin/Globulin Ratio 1.0 (1.0-2.8) Lipase 154 (23-300) U/L Urine Color Brown Urine Appearance Turbid Urine pH 8.0 (4.5-8.0) Ur Specific [place] 1.015 (1.000-1.035) Urine Protein 3+ H (Negative) Urine Glucose (UA) Negative (Normal) g/dL Urine Ketones Trace H (NEGATIVE) Urine Occult Blood 3+ H (Negative) Urine Nitrate Negative (Negative) Urine Bilirubin Negative (NEGATIVE) Urine Urobilinogen 0.2 (0.2) E.U./dL Ur Leukocyte Esterase 1+ H (NEGATIVE) Urine RBC 10-30/hpf H (0-5/HPF) Urine WBC >100/hpf H (0-5/HPF) Ur Squamous Epith Cells 0-1 /hpf Triple Phos Crystals Moderate Amorphous Sediment 2+ Urine Bacteria Many (>30) H (None) Urine Mucus 3+ H (Negative) Ur Culture Indicated? Specimen cultured Micro UA Comment Not Reportable MDM Narrative Medical decision making narrative: Patient has abdominal pain and bladder scanned noting greater than 1 L his bladder. He has known prostate problems. Eagle catheter placed and drained 2000 mL of very foul-smelling, bloody urine. The patient is frail and weak, obviously dehydrated and malnourished. He lives at an adult boarding house locally and has poor support. Discharge Plan Departure Patient Disposition: Admitted As Inpatient Clinical Impression: Acute UTI, Acute metabolic encephalopathy, Acute dehydration, Adult failure to thrive Discharge Date/Time: 09/01/18 15:49 Interventions: ED Discharge Assessment Last Done: 09/01/18 15:49 Admit Date/Time: 09/01/18 15:46 Admit Provider: Stephanie Macias
[2018-09-01] MEDS: CEFTRIAXONE 1 GM/50 ML FROZ.PIGGY IV (15:23)
--- NOTE | 2018-09-01 15:33 | CM.SWNOTE ---
ED LEADITE HEATER NOTE Presenting Problem: MEMBER SERVICES COORDINATOR was asked to see this pt due to the fact that he came in not having showered or bathed in quite a long time and that this is impacting his health. Pt's presneting complaint was everything, but his RN stated that he is getting infections due to not showering and came to the ED quite odorous and when they checked had a brief full of feces and urine. MEMBER SERVICES COORDINATOR inquired about his housing situation and how I might be of help. Pt lives in a boarding house; he has a private room with a shared bath. His speech was difficult to understand at times due to low volume and mumbling. He mentioned that he has always had a problem with showering. When MEMBER SERVICES COORDINATOR explored more, and inquired if he had depression or anxiety, he said he did, but thought the lack of showering was due to laziness. He did mention a long history of incarceration, totalling approximately 22 years. It is not known if the showering problems began when in long term or not. Community support: Pt reported that he had been homeless, living in his truck for 6-8 months, but is a [employer] and stated that the brothers have helped him. There is one member, Felix who drives him home (night blindness) from meetings and pt reported that he has showered at this home in the past. Plan: Pt is able to acknowledge that the lack of bathing is a problem; it is not clear if he is able to, or desiring to make changes, but seemed open to problem solving. ED LEADITE HEATER offered to provide some information on assisted living facilities, but pt was not interested at this time. Informed him that should he find he needs additional help and is not able to continue to live independently, that we might be able to be of help. No further SW needs noted. Stephanie Knott, [facility] Discharge Planning/Care Management ED Crisis Response Assessment Start: 09/01/18 15:27 Freq: Status: Active Protocol: Document 09/01/18 15:27 BG (Rec: 09/01/18 15:33 BG [id number]) ED Crisis Response Assessment LEADITE HEATER Assessment Type Other Reason for LEADITE HEATER Referral Psycho social issues Referred by Pt's RN Presenting Problem Pt came to the ED quite odorous and spoke of not being comfortable taking showers. The poor hygeine and incontinence have caused infections. According to RN, pt came to the ED with a full brief. He uses disposable briefs. Mental health diagnosis pt reproted that he had a hx of Depression and anxiety. He also stated that he is an alcoholic, but has not had any ETOH since 1980. He was mpt omterested in any behavioral health services, but said it has been helpful in the past. VOA/CMS check No Suicidal thoughts No Current Risk factors Financial difficulties Resources Provided [facility] offered resources,b ut pt declined. Informed him that there is help available if he finds he is no longer able to manage on his own and wants to go to an assisted living facility.
--- NOTE | 2018-09-01 17:28 | P.HP_ITS ---
History of Present Illness Date Patient Seen: 09/01/18 Chief complaint: everything Narrative: Patient was in the emergency department at [facility] 08/25 for hematuria. It was recommended that he have a knott catheter placed but he refused. Patient presented to the Emergency Department today with acute abdominal pain, dehydration, and failure to thrive. Patient was found to have 2000cc in his bladder, with urine dark and infected. CT scan confimed the findings as above. The patient is a poor history but states he has not eaten in the last 2-3 days. He denies any fever or chills. He denies nausea vomiting or diarrhea. He lives in a boarding facility . Patient reports some rectal bleeding but upon questioning he was referring to his hematuria. Patient is admitted to the hospital for urinary retention, dehydration, and an acute urinary tract infection. Patient History Medical History Arthritis (Chronic) BPH (benign prostatic hyperplasia) (Chronic) Depression (Chronic) Hyperlipemia (Chronic) Hypertension (Chronic) Osteopenia (Chronic) Osteoporosis (Chronic) Colon polyps (Resolved) Hernia (Resolved) History of alcohol abuse (Resolved 1980) Shoulder pain (Resolved) Urinary retention (Resolved ~04/2017) Surgical History Hx of cystoscopy (Acute 04/2017) Hx of transurethral resection of prostate (Resolved 04/2017) History of cataract removal with insertion of prosthetic lens (02/2016) Status post colectomy (2010) Status post hernia repair (05/2013) Family & Social History Family History: Reviewed 09/01/18 by Stephanie Macias MD Social History: Prior Living Arrangements Senior Care Safety & Behavioral: Feels Safe in Current Yes Environment Been Physically Hurt or No Threatened By a Person Suicidal Ideation Description None Suicide Plan Description No Plan Tobacco & Substance use: Smoking Status Never smoker alcohol intake former Substance Use Type does not use Meds Home Medications Medication Instructions Recorded Confirmed Type aspirin 325 mg PO BEDTIME #0 05/31/13 09/01/18 History atorvastatin 40 mg tablet 40 mg PO HS #90 tab 06/11/18 09/01/18 Rx Adult Diapers #30 each 08/10/18 09/01/18 Rx Allergies Allergy/AdvReac Type Severity Reaction Status Date / Time No Known Drug Allergies Allergy Verified 08/25/18 09:19 Review of Systems Review of Systems All systems reviewed & are unremarkable except as noted in HPI and below Exam Vital Signs (past 8 hours): - 09/01/18 10:47 09/01/18 11:23 09/01/18 12:36 Temperature Pulse Rate 90 87 76 Respiratory Rate 20 16 Blood Pressure Blood Pressure [Left Arm] 128/88 130/84 139/84 Pulse Oximetry 99 97 99 09/01/18 14:06 09/01/18 14:42 09/01/18 15:04 Temperature Pulse Rate 78 87 82 Respiratory Rate 20 22 Blood Pressure Blood Pressure [Left Arm] 114/72 161/79 H 133/64 Pulse Oximetry 98 100 97 09/01/18 16:23 Temperature 97.1 F L Pulse Rate 88 Respiratory Rate 19 Blood Pressure 119/83 Blood Pressure [Left Arm] Pulse Oximetry 97 Oxygen Delivery Method Room Air Narrative Exam Narrative: Pleasant gentleman in no acute distress Const General: cooperative and comfortable Nutritional Appearance: average body habitus Orientation: alert and awake HENME Head: normal to inspection Ears: hearing grossly normal bilaterally Nose: external nose normal Face and sinus: normal facial exam Mouth: oral mucosae normal and oral mucosa abnormal Teeth and gingiva: dentition normal Throat: posterior oropharynx normal Other: dry mucus membranes Eyes General: appearance normal, both eyes and all related structures Eyelids: eyelids normal Conjunctivae: conjunctivae normal Sclera: sclerae normal EOM: EOM intact bilaterally Neck Neck: normal visual inspection Thyroid: thyroid normal Chest Chest: normal inspection of the chest Resp Effort & Inspection: normal respiratory effort and able to speak in complete sentences Auscultation: clear to auscultation bilaterally Cardio Palpation: normal PMI Rate: regular rate Rhythm: regular rhythm Heart Sounds: S1 normal and S2 normal GI Inspection: normal to inspection Palpation: no hepatosplenomegaly Auscultation: normal bowel sounds and normoactive bowel sounds Skin General: no rashes or lesions noted Lesions: no lesions Rashes: no rashes Trauma: no lacerations or abrasions Neuro General: alert and awake Cranial Nerves: CN's II-XI intact bilaterally and tongue midline Cognition: abnormal cognition Speech: speech normal Motor: muscle tone normal throughout and strength 5/5 throughout Sensory Exam: no sensory deficits noted Extrem General: normal to inspection and no pedal edema Right upper extremity: normal to inspection Left upper extremity: normal to inspection Right lower extremity: normal to inspection Left lower extremity: normal to inspection Psych Speech and Movement: speech and movement normal Mood: congruent mood Affect: normal affect Attitude: cooperative Thought Content: normal Objective Labs Result Diagrams: 09/01/18 11:12 09/01/18 11:12 Labs: Laboratory Results - last 24 hr 09/01/18 09/01/18 09/01/18 11:12 11:12 13:00 WBC 16.6 H RBC 5.71 Hgb 18.4 H Hct 52.3 MCV 91.6 MCH 32.2 MCHC 35.1 RDW 14.6 Plt Count 340 Neut % (Auto) Not Reportable Lymph % (Auto) Not Reportable [place] % (Auto) Not Reportable Eos % (Auto) Not Reportable Baso % (Auto) Not Reportable Total Counted 100 Seg Neutrophils % 67.0 Band Neutrophils % 13.0 H Lymphocytes % (Manual) 9.0 L Monocytes % (Manual) 10.0 Myelocytes % 1.0 H Neutrophils # (Manual) 97862 H RBC Morphology Normal morphology Sodium 147 H Potassium 5.3 H D Chloride 105 Carbon Dioxide 23 BUN 66 H Creatinine 1.20 Estimated GFR 59.7 L BUN/Creatinine Ratio 55.0 H Glucose 163 H Calcium 10.6 H Total Bilirubin 1.2 AST 40 ALT 30 Alkaline Phosphatase 130 H Total Protein 8.6 H Albumin 4.3 Globulin 4.3 H Albumin/Globulin Ratio 1.0 Lipase 154 Urine Color Brown Urine Appearance Turbid Urine pH 8.0 Ur Specific [place] 1.015 Urine Protein 3+ H Urine Glucose (UA) Negative Urine Ketones Trace H Urine Occult Blood 3+ H Urine Nitrate Negative Urine Bilirubin Negative Urine Urobilinogen 0.2 Ur Leukocyte Esterase 1+ H Urine RBC 10-30/hpf H Urine WBC >100/hpf H Ur Squamous Epith Cells 0-1 /hpf Triple Phos Crystals Moderate Amorphous Sediment 2+ Urine Bacteria Many (>30) H Urine Mucus 3+ H Ur Culture Indicated? Specimen cultured Micro UA Comment Not Reportable Assessment & Plan (1) Hematuria: Problem details: Likely related to urinary tract infection Qualifiers: Glomerular morphologic changes: Hematuria type: gross Qualified Code( s): R31.0 - Gross hematuria Current visit: No Status: Acute (2) Acute UTI: Problem details: Will continue ceftriaxone, await URine culture and sensitivity Current visit: Yes Status: Acute (3) Acute metabolic encephalopathy: Problem details: Likely secondary to urinary tract infection and acute urinary retention Current visit: Yes Status: Acute (4) Acute dehydration: Problem details: due to poor oral intake. Will continue Iv hydration for now Current visit: Yes Status: Acute (5) Acute urinary retention: Problem details: knott catheter placed Current visit: Yes Status: Acute Plan: Assessment/Plan Narrative: Hypernatremia, likely secondary to dehydration Quality VTE Deep Vein Thrombosis/Pulmonary Embolism Present on Admission: No
[2018-09-01] MEDS: SODIUM CHLORIDE 0.45% 1,000 ML 125 ML IV (18:17)
--- NOTE | 2018-09-01 18:21 | PM.HP.1 ---
History of Present Illness Chief complaint: everything Narrative: Patient was in the emergency department at [facility] 08/25 for hematuria. It was recommended that he have a knott catheter placed but he refused. Patient presented to the Emergency Department today with acute abdominal pain, dehydration, and failure to thrive. Patient was found to have 2000cc in his bladder, with urine dark and infected. CT scan confimed the findings as above. The patient is a poor history but states he has not eaten in the last 2-3 days. He denies any fever or chills. He denies nausea vomiting or diarrhea. He lives in a boarding facility . Patient reports some rectal bleeding but upon questioning he was referring to his hematuria. Patient is admitted to the hospital for urinary retention, dehydration, and an acute urinary tract infection. Patient History Medical History Arthritis (Chronic) BPH (benign prostatic hyperplasia) (Chronic) Depression (Chronic) Hyperlipemia (Chronic) Hypertension (Chronic) Osteopenia (Chronic) Osteoporosis (Chronic) Colon polyps (Resolved) Hernia (Resolved) History of alcohol abuse (Resolved 1980) Shoulder pain (Resolved) Urinary retention (Resolved ~04/2017) Surgical History Hx of cystoscopy (Acute 04/2017) Hx of transurethral resection of prostate (Resolved 04/2017) History of cataract removal with insertion of prosthetic lens (02/2016) Status post colectomy (2010) Status post hernia repair (05/2013) Family & Social History Family History: Reviewed 09/01/18 by Stephanie Macias MD Social History: Prior Living Arrangements [facility] Safety & Behavioral: Feels Safe in Current Yes Environment Been Physically Hurt or No Threatened By a Person Suicidal Ideation Description None Suicide Plan Description No Plan Tobacco & Substance use: Smoking Status Never smoker alcohol intake former Substance Use Type does not use Meds Home Medications Medication Instructions Recorded Confirmed Type aspirin 325 mg PO BEDTIME #0 05/31/13 09/01/18 History atorvastatin 40 mg tablet 40 mg PO HS #90 tab 06/11/18 09/01/18 Rx Adult Diapers #30 each 08/10/18 09/01/18 Rx Allergies Allergy/AdvReac Type Severity Reaction Status Date / Time No Known Drug Allergies Allergy Verified 09/27/18 09:19 Exam Vital Signs (past 8 hours): - 09/01/18 10:47 09/01/18 11:23 09/01/18 12:36 Temperature Pulse Rate 90 87 76 Respiratory Rate 20 16 Blood Pressure Blood Pressure [Left Arm] 128/88 130/84 139/84 Pulse Oximetry 99 97 99 09/01/18 14:06 09/01/18 14:42 09/01/18 15:04 Temperature Pulse Rate 78 87 82 Respiratory Rate 20 22 Blood Pressure Blood Pressure [Left Arm] 114/72 161/79 H 133/64 Pulse Oximetry 98 100 97 09/01/18 16:23 Temperature 97.1 F L Pulse Rate 88 Respiratory Rate 19 Blood Pressure 119/83 Blood Pressure [Left Arm] Pulse Oximetry 97 Oxygen Delivery Method Room Air Objective Labs Result Diagrams: 09/06/18 05:32 09/06/18 05:32 Labs: Laboratory Results - last 24 hr 09/01/18 09/01/18 09/01/18 11:12 11:12 13:00 WBC 16.6 H RBC 5.71 Hgb 18.4 H Hct 52.3 MCV 91.6 MCH 32.2 MCHC 35.1 RDW 14.6 Plt Count 340 Neut % (Auto) Not Reportable Lymph % (Auto) Not Reportable [place] % (Auto) Not Reportable Eos % (Auto) Not Reportable Baso % (Auto) Not Reportable Total Counted 100 Seg Neutrophils % 67.0 Band Neutrophils % 13.0 H Lymphocytes % (Manual) 9.0 L Monocytes % (Manual) 10.0 Myelocytes % 1.0 H Neutrophils # (Manual) 57671 H RBC Morphology Normal morphology Sodium 147 H Potassium 5.3 H D Chloride 105 Carbon Dioxide 23 BUN 66 H Creatinine 1.20 Estimated GFR 59.7 L BUN/Creatinine Ratio 55.0 H Glucose 163 H Calcium 10.6 H Total Bilirubin 1.2 AST 40 ALT 30 Alkaline Phosphatase 130 H Total Protein 8.6 H Albumin 4.3 Globulin 4.3 H Albumin/Globulin Ratio 1.0 Lipase 154 Urine Color Brown Urine Appearance Turbid Urine pH 8.0 Ur Specific Center 1.015 Urine Protein 3+ H Urine Glucose (UA) Negative Urine Ketones Trace H Urine Occult Blood 3+ H Urine Nitrate Negative Urine Bilirubin Negative Urine Urobilinogen 0.2 Ur Leukocyte Esterase 1+ H Urine RBC 10-30/hpf H Urine WBC >100/hpf H Ur Squamous Epith Cells 0-1 /hpf Triple Phos Crystals Moderate Amorphous Sediment 2+ Urine Bacteria Many (>30) H Urine Mucus 3+ H Ur Culture Indicated? Specimen cultured Micro UA Comment Not Reportable Quality VTE Deep Vein Thrombosis/Pulmonary Embolism Present on Admission: No
[2018-09-01] MEDS: DOCUSATE 100 MG CAPSULE PO (21:41)
[2018-09-01] MEDS: ATORVASTATIN 20 MG TABLET 40 MG PO (21:41)
[2018-09-02] VITALS (10 sets, daily range): BP systolic 109–125; BP diastolic 62–73; PULSE 67–76; RESP 16–20; TEMP 36.3–36.9; O2SAT 96–97
[2018-09-02] MEDS: SODIUM CHLORIDE 0.45% 1,000 ML 125 ML IV ×3 (01:48→21:05)
--- NOTE | 2018-09-02 01:53 | PC.NURSE ---
shift note met with pt at start of shift. Pt appears mildly confused. Can state situation but has delayed responses and slightly disconnected. RA 96%. Eagle continues to have sediment. Urine is light red in color with foul odor. Pt's bottom is red. Turning with pillows. Call light in reach.
[2018-09-02 05:33] LABS: Hematocrit 43.2 % (41-53); Hemoglobin 14.8 g/dL (13.5-17.5); Mean Corpuscular HGB Conc 34.3 % (30-36); Mean Corpuscular Hemoglobin 31.5 PG (26-34); Mean Corpuscular Volume 91.9 fL (80-100); Platelet Count 271 X10^3/uL (150-400); Red Cell Distribution Width 14.2 % (11.6-14.8); White Blood Cell Count 17.2 X10^3/uL (4.5-11.0)
[2018-09-02 05:39] LABS: BUN Creatinine Ratio 41.3 (6-22); Blood Urea Nitrogen 33 mg/dL (9-20); Calcium 8.3 mg/dL (8.4-10.2); Carbon Dioxide 23 mmol/L (22-32); Chloride 108 mmol/L (98-107); Estimated Glomerular Filt Rate > 60.0 mL/min (>60); Glucose 104 mg/dL (80-110); HEMOLYSIS < 15 (0-50); Potassium 4.1 mmol/L (3.4-5.1); Sodium 141 mmol/L (137-145)
[2018-09-02 05:42] LABS: Add Manual Diff / Slide Review YES
[2018-09-02 06:28] LABS: Neutrophils Absolute Manual 12212 /uL (3000-5900); RBC Morphology Normal Morphology; Total Cells Counted 100
[2018-09-02] MEDS: DOCUSATE 100 MG CAPSULE PO ×2 (09:45→21:04)
[2018-09-02] MEDS: ASPIRIN 325 MG TABLET PO (09:45)
[2018-09-02] MEDS: ENOXAPARIN 40 MG/0.4 ML SYRINGE SUBCUT (09:45)
--- NOTE | 2018-09-02 10:42 | CM.DANOTE ---
DCP: Case received, EMR reviewed and met with patient. Introduced self and role. DCP template completed with information currently available. Patient is a 73 year old male admitted yesterday afternoon to the care of the hospitalist team. PCP: Katia MADRID. Payer: confirmed: Medicare/Medicaid. Patient came to hospital with acute abdominal pain. Was noted to have urinary retention, dehydration, and an acute UTI. Spoke to patient, alert. Stated that he lives in [place]. Asked patient where he lived, stated [facility]. Has a sister that lives in [place] as well. Patient stated that he has had urinary problems before, and has been seeing a urologist. Discussed discharge plan with patient. Mentioned skilled facilities, if he is here for a few days, and patient stated that he wants to go back home in fear of his losing his place. Patient is also concerned about leaving here with a knott. Patient is supposed to be following up with his urologist as well. Patient is independent, has been driving, and goes to rehab to work out. P: DCP to continue to assess. Plan may be home health versus skilled, since patient has new knott. Will depend on patient's condition and progress during hospital stay. Precious Aggarwal, DAVID/Sailmaker
--- NOTE | 2018-09-02 12:21 | PT.IIE ---
Current Diagnoses Dehydration (09/01/18) Metabolic encephalopathy (09/01/18) Urinary tract infection, site not specified (09/01/18) Gross hematuria (09/01/18) Other retention of urine (09/01/18) Surgical History (Last Reviewed 09/01/18 @ 17:31 by Stephanie Macias MD) Hx of cystoscopy (Acute 04/2017) Hx of transurethral resection of prostate (Resolved 04/2017) History of cataract removal with insertion of prosthetic lens (02/2016) Status post colectomy (2010) Status post hernia repair (05/2013) Medical History (Last Reviewed 09/01/18 @ 17:31 by Stephanie Macias MD) Arthritis (Chronic) BPH (benign prostatic hyperplasia) (Chronic) Depression (Chronic) Hyperlipemia (Chronic) Hypertension (Chronic) Osteopenia (Chronic) Osteoporosis (Chronic) Colon polyps (Resolved) Hernia (Resolved) History of alcohol abuse (Resolved 1980) Shoulder pain (Resolved) Urinary retention (Resolved ~04/2017) Physical Therapy Inpatient Evaluation/Re-Eval M1 PT/OT-IP Prior Functional Status Start: 09/02/18 17:29 Freq: NEEDED Status: Active Protocol: Document 09/02/18 12:21 DLM (Rec: 09/02/18 17:41 DLM [email or web address]) Medical Review Prior Functional Status Medical History Reviewed Yes Diet/Fluid Consistency Regular Communication WNL Mobility and Gait Independent with cane, community distances Activities of Daily Living and IADL's Independent, mostly eats sandwiches Social History Household Members none Living Arrangements Residential Home Equipment Straight Cane Additional Social History Comment he lives in a boarding house with a shared bathroom M2 PT-IP Current Condition Start: 09/02/18 17:29 Freq: NEEDED Status: Active Protocol: Document 09/02/18 12:21 DLM (Rec: 09/02/18 17:41 DLM [email or web address]) Physical Therapy Current Condition Current Condition Evaluation Date 09/02/18 Treatment Diagnosis weakness, impaired gait Onset Date 09/01/18 M3 PT-IP Subjective Start: 09/02/18 17:29 Freq: NEEDED Status: Active Protocol: Document 09/02/18 12:21 DLM (Rec: 09/02/18 17:41 DLM [email or web address]) Subjective Physical Therapy Visit Type Type Initial Evaluation Visit Start Time 11:55 Visit Stop Time 12:21 Total Visit Minutes 26 Number of GREASE REFINING SUPERVISOR Visits 0 Physical Therapy Visit Comments Patient Comments He thinks he is soiled, does not like having the catheter M4 PT-IP Mobility and Gait Start: 09/02/18 17:29 Freq: NEEDED Status: Active Protocol: Document 09/02/18 12:21 DLM (Rec: 09/02/18 17:41 DL [email or web address]) PT-Bed Mobility Assessment Rolling Type of Rolling Roll to Right Level of Assist Standby Assistance Supine to Sit Supine to Sit Minimal Assistance Scooting Scooting to Edge of Bed Standby Assistance PT-Transfer Assessment Sit to and From Stand Sit to and from Stand Minimal Assistance Moderate Assistance Equipment Transfer Assistive Device None Straight Cane Transfers Transfer Destination Chair Transfer Technique Stand Step Pivot Transfer Ability Level of Assist Moderate Assistance Comments Mobility Comments pt up to recliner for lunch, he has difficulty coming to full standing position even with the cane Gait Assessment Comments Gait Comments pt reports he feels too weak PT-Balance Assessment Sitting Balance and Reactions Static Sitting Balance Ability Good Dynamic Sitting Balance Ability Good Standing Balance and Reactions Static Standing Balance Ability Poor Dynamic Standing Balance Ability Poor Device Used cane M5 PT-IP Objective Assessments Start: 09/02/18 17:29 Freq: NEEDED Status: Active Protocol: Document 09/02/18 12:21 DL (Rec: 09/02/18 17:41 DL [email or web address]) Orientation Orientation/Cognition Level of Alertness Alert Orientation Name Age Birthday Month Date Year Day of Week Place Situation Language Function Ability No Deficits Noted Safety Awareness Decreased Safety Awareness Memory Description No Deficits Noted Comments chair alarm used to decrease fall risks Gross Range of Motion Upper Extremity ROM Assessment Within Functional Limits Lower Extremity ROM Assessment Within Functional Limits Strength Upper Extremity Strength Assessment Bilaterally Impaired Lower Extremity Strength Assessment Bilaterally Impaired Hip 4/5 Knee 4/5 Ankle 4/5 Comments Strength Comments generalized weakness throughout Coordination Assessment Gross Coordination Gross Coordination Impaired Assessment Finger to Nose Test Minimal Impairment Coordination Comments functional impairment in UE's with difficulty openning packages on meal tray Sensation Assessment Sensation Gross Sensation WNL Muscle Tone Comments Muscle Tone Comments mild tremors noted M7 PT-IP Assessment and Plan Start: 09/02/18 17:29 Freq: NEEDED Status: Active Protocol: Document 09/02/18 12:21 DLM (Rec: 09/02/18 17:41 DLM [email or web address]) PT Summary Assessment and Plan Potential Rehabilitation Potential Good Status of Condition at Evaluation Evolving Summary Impairments Pain Strength Balance Coordination Cognition Bed Mobility Transfers Gait Activity Tolerance Assessment Summary He presents with generalized weakness and poor insight into his medical situation. He was incontinent of stool but declines to call the nursing staff to be cleaned up. He is resistant to having a catheter and denies need for it. He was unable to ambulate this visit due to weakness. He is not safe to go home alone at this time. Recommend SNF rehab at discharge. Goals Bed Mobility Goal Standby Assistance Transfer Goal Contact Guard Assistance Front Wheeled Walker Gait Goal Contact Guard Assistance Minimal Assistance Front Wheel Walker Gait Distance 50 feet Frequency of Treatment Frequency Of Treatment Twice a Day Treatment Plan Physical Therapy Treatment Plan Bed Mobility Training Transfer Training Gait Training Therapeutic Exercise Balance Retraining Discharge Planning Neuromuscular Re-ed Coordination Retraining Other Recommendations and Next Treatment trial a FWW next visit Focus Recommendations To Nursing Amount of Assist Needed 1 Person Assist Discharge Recommendations PT Discharge Recommendations SNF Rehab
[2018-09-02] MEDS: ACETAMINOPHEN 325 MG TABLET 650 MG PO (14:16)
--- NOTE | 2018-09-02 15:00 | PT.IPTN ---
Current Diagnoses Dehydration (09/01/18) Metabolic encephalopathy (09/01/18) Urinary tract infection, site not specified (09/01/18) Gross hematuria (09/01/18) Other retention of urine (09/01/18) Physical Therapy Treatment Note M2 PT-IP Current Condition Start: 09/02/18 17:29 Freq: NEEDED Status: Active Protocol: Document 09/02/18 12:21 DLM (Rec: 09/02/18 17:41 DLM [email or web address]) Physical Therapy Current Condition Current Condition Evaluation Date 09/02/18 Treatment Diagnosis weakness, impaired gait Onset Date 09/01/18 M3 PT-IP Subjective Start: 09/02/18 17:29 Freq: NEEDED Status: Active Protocol: Document 09/02/18 15:00 DLM (Rec: 09/02/18 17:43 DLM [email or web address]) Subjective Physical Therapy Visit Type Type Patient Unavailable Notes Pt not available for treatment , being cleaned up by nursing due to incontinence of stool
--- NOTE | 2018-09-02 15:37 | P.PN_ITS ---
Subjective Date Patient Seen: 09/02/18 Time Patient Seen: 11:31 Interval history: History of present illness Follow-up on patient with an obstructive uropathy. Was the Eagle catheter was placed 2000 cc of fluid came out We expect a bloody urinary output at this point due to the extensive distention of the bladder wall with this fluid retention Gross hematuria persist Review of systems No chest pain or shortness of breath no nausea at present Exam Vital Signs (past 8 hours): - 09/02/18 08:00 Temperature 97.5 F L Pulse Rate 68 Respiratory Rate 16 Blood Pressure 122/73 Pulse Oximetry 96 Oxygen Delivery Method Room Air Narrative Exam Narrative: General appearance patient is awake and alert in no apparent distress at rest Psychiatric well oriented to time place and person mood is somewhat temperamental. Respiratory fairly clear to auscultation no wheezes no crackles good airflow Cardiovascular regular rate rhythm no murmurs +3 pulses to extremities GI is fairly soft nontender positive bowel sounds no bruits Neurologic no focal neurologic changes cranial nerves 2-12 grossly intact no resting tremor Objective Labs Result Diagrams: 09/02/18 04:50 09/02/18 04:50 Labs: Laboratory Results - last 24 hr 09/02/18 09/02/18 04:50 04:50 WBC 17.2 H RBC 4.70 Hgb 14.8 Hct 43.2 MCV 91.9 MCH 31.5 MCHC 34.3 RDW 14.2 Plt Count 271 Neut % (Auto) Not Reportable Lymph % (Auto) Not Reportable [place] % (Auto) Not Reportable Eos % (Auto) Not Reportable Baso % (Auto) Not Reportable Total Counted 100 Seg Neutrophils % 60.0 Band Neutrophils % 11.0 H Lymphocytes % (Manual) 20.0 L Monocytes % (Manual) 8.0 Metamyelocytes % 1.0 H Neutrophils # (Manual) 46558 H RBC Morphology Normal morphology Sodium 141 Potassium 4.1 D Chloride 108 H Carbon Dioxide 23 BUN 33 H Creatinine 0.80 Estimated GFR > 60.0 BUN/Creatinine Ratio 41.3 H Glucose 104 Calcium 8.3 L Assessment & Plan Plan: Assessment/Plan Narrative: Hematuria: A gross hematuria is evident and likely related to the overly extended bladder with predisposition to bleed once decompressed Continue to monitor the hemoglobin hematocrit. Transfuse if indicated Obstructive uropathy Note 2 L of urine immediately evacuated once Eagle catheter placed Will expect hemorrhagic urinary output to continue for several days Acute UTI ceftriaxone antibiotic provided Await urine culture and sensitivity Acute metabolic encephalopathy resolved Likely secondary to urinary tract infection and acute urinary retention Patient is well-oriented in a.m. on September 02 Acute dehydration resolving continue Iv hydration as tolerated Time Spent With Patient Time with patient: 25 - 35 minutes (25 min) Quality VTE Deep Vein Thrombosis/Pulmonary Embolism Present on Admission: No
--- NOTE | 2018-09-02 16:19 | PC.NURSE ---
: Uop thick red w/sediment and sm/tiny blood clots. Pt enc to take po fluids but he has not been able to take much. Doesn't feel well, feels weak and this is the first time in a couple of weeks he has been able to rest. Pt declined pain med this am. This afternoon he took some tylenol, knows he can have some vicodin if he needs it. He ref. vicodin stating tylenol always works for him. He also says it is not so much pain as it is tenderness in the lower abd and he doesn't like the knott. Pt up in the chair for a short time and amb in the room. Has been up to the bathroom as well. Has had some liquid stools this afternoon. He needed assist w/clean up. He has a different style of communicating and his conversations tend to drift/shift and he rambles. When asked how he felt he started speaking about his room. Resting quietly at the moment. Cont w/poc.
--- NOTE | 2018-09-02 16:20 | OT.IP.TRT ---
Current Diagnoses Dehydration (09/01/18) Metabolic encephalopathy (09/01/18) Urinary tract infection, site not specified (09/01/18) Gross hematuria (09/01/18) Other retention of urine (09/01/18) Occupational Therapy Treatment Note M3 OT- IP Subjective and Pain Start: 09/02/18 16:17 Freq: Status: Active Protocol: Document 09/02/18 16:17 [facility] (Rec: 09/02/18 16:20 [facility] [id number]) OT- Subjective Occupational Therapy Visit Type Type Patient Refusal Notes Pt not wanting to get out of bed at this time and not wanting to partake in OT eval at this time. Therefore to attempt OT eval tomorrow.
[2018-09-02] MEDS: CEFTRIAXONE 1 GM/50 ML FROZ.PIGGY IV (16:22)
[2018-09-02] MEDS: ATORVASTATIN 20 MG TABLET 40 MG PO (21:04)
--- NOTE | 2018-09-02 23:56 | PC.NURSE ---
Addendum entered by Shawna Olivares R.N. 09/03/18 05:17: Complains of mild headache with 3/10 severity; medicated with Tylenol. Denies any penile pain/discomfort this morning. Continues to have cloudy, red urine. Original Note: Patient is alert and oriented. Breath sounds CTA with RA sat of 96%. HRR. Denies nausea. BT present and abdomen is soft. Indwelling catheter is patent; urine is cloudy and red but without clots. Able to turn self in bed. Complains of 3/10 penile pain but declined intervention. Fall risk score is high due to history of falls; bed alarm is activated.
[2018-09-03] VITALS (8 sets, daily range): BP systolic 95–140; BP diastolic 62–70; PULSE 68–77; RESP 15–20; TEMP 36.2–36.7; O2SAT 95–98
[2018-09-03] MEDS: SODIUM CHLORIDE 0.45% 1,000 ML 125 ML IV ×2 (05:12→16:14)
[2018-09-03] MEDS: ACETAMINOPHEN 325 MG TABLET 650 MG PO (05:14)
[2018-09-03] MEDS: DOCUSATE 100 MG CAPSULE PO ×2 (09:46→20:45)
[2018-09-03] MEDS: ENOXAPARIN 40 MG/0.4 ML SYRINGE SUBCUT (09:46)
[2018-09-03] MEDS: ASPIRIN 325 MG TABLET PO (09:46)
--- NOTE | 2018-09-03 11:20 | PT.IPTN ---
Current Diagnoses Dehydration (09/01/18) Metabolic encephalopathy (09/01/18) Urinary tract infection, site not specified (09/01/18) Gross hematuria (09/01/18) Other retention of urine (09/01/18) Physical Therapy Treatment Note M2 PT-IP Current Condition Start: 09/02/18 17:29 Freq: NEEDED Status: Active Protocol: Document 09/03/18 11:20 [facility] (Rec: 09/03/18 15:00 [facility] [id number]) Physical Therapy Current Condition Current Condition Evaluation Date 09/02/18 Treatment Diagnosis weakness, impaired gait Onset Date 09/01/18 M3 PT-IP Subjective Start: 09/02/18 17:29 Freq: NEEDED Status: Active Protocol: Document 09/03/18 11:20 [facility] (Rec: 09/03/18 15:00 [facility] [id number]) Subjective Physical Therapy Visit Type Type Treatment Note Visit Start Time 10:55 Visit Stop Time 11:20 Total Visit Minutes 25 Number of FORESTRY ENGINEER Visits 0 Physical Therapy Visit Comments Patient Comments pt willing to ambulate, just out of shower with ROAD GRADER OPERATOR Therapy Pain Assessment Pain Present Pain Present Denied Pain M4 PT-IP Mobility and Gait Start: 09/02/18 17:29 Freq: NEEDED Status: Active Protocol: Document 09/03/18 11:20 [facility] (Rec: 09/03/18 15:00 [facility] [id number]) PT-Bed Mobility Assessment Sit to Supine Sit to Supine Standby Assistance PT-Transfer Assessment Equipment Transfer Assistive Device Gait Belt Front Wheeled Walker Transfers Transfer Destination Bed Transfer Technique Stand Step Pivot Transfer Ability Level of Assist Standby Assistance Gait Assessment Gait Gait Assistance Required: Contact Guard Assist Distance (Feet) 200 Assistive Devices Assistive Device Gait Belt Front Wheeled Walker Gait Deviations General Gait Pattern Ataxic Decreased Stride Length Decreased Feet Clearance Narrow Based Gait Step-to Gait Factors Limiting Gait Function Factors Limiting Gait Function Decreased Activity Tolerance Decreased Strength Poor Balance Poor Safety Awareness M5 PT-IP Objective Assessments Start: 09/02/18 17:29 Freq: NEEDED Status: Active Protocol: Document 09/02/18 12:21 DLM (Rec: 09/02/18 17:41 DLM [email or web address]) Orientation Orientation/Cognition Level of Alertness Alert Orientation Name Age Birthday Month Date Year Day of Week Place Situation Language Function Ability No Deficits Noted Safety Awareness Decreased Safety Awareness Memory Description No Deficits Noted Comments chair alarm used to decrease fall risks Gross Range of Motion Upper Extremity ROM Assessment Within Functional Limits Lower Extremity ROM Assessment Within Functional Limits Strength Upper Extremity Strength Assessment Bilaterally Impaired Lower Extremity Strength Assessment Bilaterally Impaired Hip 4/5 Knee 4/5 Ankle 4/5 Comments Strength Comments generalized weakness throughout Coordination Assessment Gross Coordination Gross Coordination Impaired Assessment Finger to Nose Test Minimal Impairment Coordination Comments functional impairment in UE's with difficulty openning packages on meal tray Sensation Assessment Sensation Gross Sensation WNL Muscle Tone Comments Muscle Tone Comments mild tremors noted M7 PT-IP Assessment and Plan Start: 09/02/18 17:29 Freq: NEEDED Status: Active Protocol: Document 09/03/18 11:20 [facility] (Rec: 09/03/18 15:00 [facility] [id number]) PT Summary Assessment and Plan Summary Progress Towards Goals Progressing Toward Goals Assessment Summary Pt with significant improvement in mobility today, with increased stability using FWW. Pt fatigued after gait, but does appear to be more motivated today to participate. Pt still with catheter, and unsure how well he would be able to manage on his own with a catheter upon d /c. Pt is not yet safe to return home at this point due to impaired activity tolerance , weakness, and high fall risk . Goals Bed Mobility Goal Standby Assistance Transfer Goal Contact Guard Assistance Front Wheeled Walker Gait Goal Contact Guard Assistance Minimal Assistance Front Wheel Walker Gait Distance 50 feet Frequency of Treatment Frequency Of Treatment Twice a Day Treatment Plan Other Recommendations and Next Treatment prog. gait, transfers Focus Recommendations To Nursing Amount of Assist Needed 1 Person Assist Discharge Recommendations PT Discharge Recommendations SNF Rehab
--- NOTE | 2018-09-03 15:00 | PT.IPTN ---
Current Diagnoses Dehydration (09/01/18) Metabolic encephalopathy (09/01/18) Urinary tract infection, site not specified (09/01/18) Gross hematuria (09/01/18) Other retention of urine (09/01/18) Physical Therapy Treatment Note M2 PT-IP Current Condition Start: 09/02/18 17:29 Freq: NEEDED Status: Active Protocol: Document 09/03/18 15:00 [facility] (Rec: 09/03/18 15:09 [facility] [id number]) Physical Therapy Current Condition Current Condition Evaluation Date 09/02/18 Treatment Diagnosis weakness, impaired gait Onset Date 09/01/18 M3 PT-IP Subjective Start: 09/02/18 17:29 Freq: NEEDED Status: Active Protocol: Document 09/03/18 15:00 [facility] (Rec: 09/03/18 15:09 [facility] [id number]) Subjective Physical Therapy Visit Type Type Treatment Note Visit Start Time 14:45 Visit Stop Time 15:00 Total Visit Minutes 15 Number of RAILROAD YARD WORKER Visits 0 Physical Therapy Visit Comments Patient Comments pt feeling a little stronger, does not like his catheter. Therapy Pain Assessment Pain Present Pain Present Denied Pain M4 PT-IP Mobility and Gait Start: 09/02/18 17:29 Freq: NEEDED Status: Active Protocol: Document 09/03/18 15:00 [facility] (Rec: 09/03/18 15:09 [facility] [id number]) PT-Bed Mobility Assessment Supine to Sit Supine to Sit Minimal Assistance Scooting Scooting to Edge of Bed Contact Guard Assistance PT-Transfer Assessment Sit to and From Stand Sit to and from Stand Standby Assistance Equipment Transfer Assistive Device Gait Belt Front Wheeled Walker Transfers Transfer Destination Bed Transfer Ability Level of Assist Contact Guard Assistance Gait Assessment Gait Gait Assistance Required: Contact Guard Assist Distance (Feet) 300 Assistive Devices Assistive Device Gait Belt Front Wheeled Walker Gait Deviations General Gait Pattern Ataxic Decreased Stride Length Decreased Feet Clearance Narrow Based Gait Step-to Gait Factors Limiting Gait Function Factors Limiting Gait Function Decreased Activity Tolerance Decreased Strength Poor Balance Poor Safety Awareness Comments Gait Comments RLE excessive ER with decreased foot clearance B, shuffling gait. M5 PT-IP Objective Assessments Start: 09/02/18 17:29 Freq: NEEDED Status: Active Protocol: Document 09/03/18 15:00 [facility] (Rec: 09/03/18 15:09 [facility] [id number]) Orientation Orientation/Cognition Level of Alertness Alert M6 PT-IP Treatment Start: 09/02/18 17:29 Freq: NEEDED Status: Active Protocol: Document 09/03/18 15:00 [facility] (Rec: 09/03/18 15:09 [facility] [id number]) Physical Therapy Treatment Other Treatments Other Treatment Performed pt had BM, BINDER FIXER notified. M7 PT-IP Assessment and Plan Start: 09/02/18 17:29 Freq: NEEDED Status: Active Protocol: Document 09/03/18 15:00 [facility] (Rec: 09/03/18 15:09 [facility] [id number]) PT Summary Assessment and Plan Summary Progress Towards Goals Progressing Toward Goals Assessment Summary Pt requires some manual assistance to get out of bed this afternoon, but improved his gait tolerance to 300 ft with a FWW. Pt would require use of a FWW or possibly a 4WW upon d/c if he is to return home. However, pt is still at high risk for falls due to weakness and his gait impairments, and likely not ready/able to tolerate outdoor ambulation or uneven terrain. Pt is below his prior level of function, and recommend SNF rehabilitation upon d/c to continue to progress his activity tolerance, strength, and safety. Goals Bed Mobility Goal Standby Assistance Transfer Goal Contact Guard Assistance Front Wheeled Walker Gait Goal Contact Guard Assistance Minimal Assistance Front Wheel Walker Gait Distance 50 feet Frequency of Treatment Frequency Of Treatment Twice a Day Treatment Plan Other Recommendations and Next Treatment bed mobility, gait, transfers Focus Recommendations To Nursing Amount of Assist Needed 1 Person Assist Discharge Recommendations PT Discharge Recommendations SNF Rehab
[2018-09-03 15:12] LABS: PSA Total 100.66 ng/mL (< 4.01); Reflex Free PSA 7.6 ng/mL
--- NOTE | 2018-09-03 15:35 | CM.DPC ---
DCP Cont: Per MD, pt likely will need to d/c with knott and leg bag and have follow up with Urology. Per PT, pt ambulating better now with walker and could likely be safe for d/c home based on ambulation but could really benefit from SNF rehab for his hygiene, knott and bag care, and further therapies for strengthening. SW met bedside with pt and explained role and pt confirmed again that he lives in a Boarding Home around [address] where he rents a room and shares a house with about 5 other people and there is a Technical Systems Architect who helps to make sure the house runs smoothly and people follow the house rules. 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 His rent is $450 a month and so far he feels that he is meeting his basic needs and able to afford his monthly expenses. SW inquired if his family was aware he was admitted to the hospital and pt states he believes so but his cell phone is out of battery. SW inquired if we could call his family from the hospital phone and he declines at this time stating he will call them once he is discharged. Pt's landlord/baseball club manager is aware pt is admitted and visited bedside with him yesterday and no concerns about losing his room since pt states he already paid rent for the month. Pt also confirms he is supported by members of the local [email or web address] and he plans to update them on his current admit to the hospital. SW discussed SNF rehab and full coverage from Medicare for the first 21 days if needed and pt seemed somewhat interested in SNF prior to d/c home but wanted to think about it and was somewhat difficult to keep pt on a topic before discussing other topics. SW encouraged him to consider at least a short stay for ongoing medical care and support for further strengthening prior to home and pt willing to consider. Plan: SW to follow tomorrow with PT, MD, and pt to determine if pt is agreeable to SNF rehab vs return to rented room in local boarding house. If SNF, referral will need to be made and PASRR completed. KAM Basilio
[2018-09-03] MEDS: CEFTRIAXONE 1 GM/50 ML FROZ.PIGGY IV (16:14)
--- NOTE | 2018-09-03 16:37 | PM.PN.1 ---
Subjective Date Patient Seen: 09/03/18 Time Patient Seen: 15:37 Interval history: History of present illness Follow-up on patient with a very dilated urinary bladder of 2 L prior to Eagle catheter placement by nursing staff. Patient with expected bloody urine output following sudden expulsion of such an extended bladder Urinary tract infection being treated with Rocephin Review of systems No chest pain or shortness of breath no nausea Exam Vital Signs (past 8 hours): - 09/03/18 13:00 09/03/18 15:39 Temperature 97.2 F L 97.8 F Pulse Rate 77 72 Respiratory Rate 18 Blood Pressure 132/70 111/62 Pulse Oximetry 97 95 Oxygen Delivery Method Room Air Narrative Exam Narrative: General appearance he is awake and alert no apparent distress Psychiatric well oriented to time place and person mood is pleasant affect is appropriate Respiratory is clear to auscultation no wheezes no crackles good airflow Cardiovascular regular rate rhythm no murmurs GI is benign and soft nontender positive bowel sounds Neurologic no focal neurologic changes cranial nerves 2-12 grossly intact Urine still a bloody appearance will continue with monitoring until further clearing of bloody urine is evident Objective Labs Result Diagrams: 09/02/18 04:50 09/02/18 04:50 Labs: Laboratory Results - last 24 hr 09/01/18 Unknown Free PSA 7.6 Total PSA 100.66 H Assessment & Plan Plan: Assessment/Plan Narrative: Hematuria: A gross hematuria is evident and likely related to the overly extended bladder with predisposition to bleed once decompressed Continue to monitor the hemoglobin hematocrit. Will transfuse if indicated Obstructive uropathy Note 2 L of urine immediately evacuated once Eagle catheter placed Will expect hemorrhagic urinary output to continue for several days Patient okay with discharge with Eagle catheter and leg bag until seen by urologist. We need to set up by urologist outpatient visit for patient preferably within a week after his discharge. Acute UTI ceftriaxone antibiotic provided Await urine culture and sensitivity Acute metabolic encephalopathy resolved Likely secondary to urinary tract infection and acute urinary retention Patient is well-oriented in a.m. on September 02 Acute dehydration resolving continue Iv hydration as tolerated Time Spent With Patient Time with patient: 25 - 35 minutes (25 min) Quality VTE Deep Vein Thrombosis/Pulmonary Embolism Present on Admission: No
[2018-09-03 17:06] LABS: Hemoglobin 14.4 g/dL (13.5-17.5); Mean Corpuscular HGB Conc 34.4 % (30-36); Mean Corpuscular Hemoglobin 31.5 PG (26-34); Mean Corpuscular Volume 91.6 fL (80-100); Platelet Count 267 X10^3/uL (150-400); Red Blood Cell Count 4.59 X10^6/uL (4.5-5.9); Red Cell Distribution Width 14.4 % (11.6-14.8)
[2018-09-03 17:10] LABS: Add Manual Diff / Slide Review YES
[2018-09-03 17:14] LABS: Alanine Aminotransferase 26 IU/L (21-72); Albumin 2.9 g/dL (3.5-5.0); Albumin Globulin Ratio 0.9 (1.0-2.8); Alkaline Phosphatase 65 U/L (38-126); Aspartate Aminotransferase 28 IU/L (17-59); BUN Creatinine Ratio 32.9 (6-22); Bilirubin Total 0.7 mg/dL (0.2-1.3); Blood Urea Nitrogen 23 mg/dL (9-20); Calcium 7.8 mg/dL (8.4-10.2); Carbon Dioxide 22 mmol/L (22-32); Chloride 110 mmol/L (98-107); Estimated Glomerular Filt Rate > 60.0 mL/min (>60); Globulin 3.2 g/dL (1.7-4.1); Glucose 101 mg/dL (80-110); Potassium 4.6 mmol/L (3.4-5.1); Sodium 141 mmol/L (137-145); Total Protein 6.1 g/dL (6.3-8.2)
--- NOTE | 2018-09-03 17:14 | OT.IP.TRT ---
Current Diagnoses Dehydration (09/01/18) Metabolic encephalopathy (09/01/18) Urinary tract infection, site not specified (09/01/18) Gross hematuria (09/01/18) Other retention of urine (09/01/18) Occupational Therapy Treatment Note M3 OT- IP Subjective and Pain Start: 09/02/18 16:17 Freq: Status: Active Protocol: Document 09/03/18 17:13 [facility] (Rec: 09/03/18 17:14 [facility] [id number]) OT- Subjective Occupational Therapy Visit Type Type Patient Refusal Notes Pt not wanting to get up at this time for OT eval. Observed pt able to eat independently, therefore to try again tomorrow for OT eval .
[2018-09-03 17:22] LABS: HEMOLYSIS 119 (0-50)
[2018-09-03 18:49] LABS: Neutrophils Absolute Manual 10880 /uL (3000-5900); Total Cells Counted 100
[2018-09-03 18:50] LABS: RBC Morphology Normal Morphology; Smudge Cells 1+
[2018-09-03] MEDS: ATORVASTATIN 20 MG TABLET 40 MG PO (20:45)
[2018-09-04] VITALS (8 sets, daily range): BP systolic 107–133; BP diastolic 60–74; PULSE 65–78; RESP 16–18; TEMP 36.4–36.8; O2SAT 95–97
--- NOTE | 2018-09-04 | DI.US.S_ITS ---
PROCEDURE: US ABDOMEN LIMITED INDICATIONS: STONE IN CYSTIC DUCT TECHNIQUE: Real-time focused scanning was performed of the abdomen, with image documentation. COMPARISON: [facility], CT, CT ABDOMEN PELVIS W CON, 09/01/2018, 10:56. FINDINGS: Multiple areas of increased echogenicity are noted within the gallbladder. There is a 10 mm focus of calcification at the gallbladder neck/cystic duct junction. Gallbladder wall is thickened measuring 4 mm. Sludge is also noted within the gallbladder. Common bile duct measures 6 mm. IMPRESSION: 1. Cholelithiasis with gallbladder wall thickening highly suggestive of cholecystitis. In addition, there is impacted stone at the gallbladder neck/cystic duct junction. Dictated by: Kusum Marquez M.D. on 09/04/2018 at 11:52 Approved by: Kusum Marquez M.D. on 09/04/2018 at 11:55
[2018-09-04] MEDS: SODIUM CHLORIDE 0.45% 1,000 ML 125 ML IV ×3 (00:45→16:32)
--- NOTE | 2018-09-04 00:56 | PC.NURSE ---
Patient is alert and oriented. Breath sounds are CTA with RA sat of 95%. HRR. Denies nausea. BT present and is passing flatus. Indwelling catheter is patent with cloudy burgundy urine in tubing/bag. Able to turn self in bed. Denies any pain. Fall risk score is high and bed alarm is activated.
[2018-09-04 06:07] LABS: Hematocrit 42.6 % (41-53); Hemoglobin 14.6 g/dL (13.5-17.5); Mean Corpuscular HGB Conc 34.2 % (30-36); Mean Corpuscular Hemoglobin 31.3 PG (26-34); Mean Corpuscular Volume 91.5 fL (80-100); Platelet Count 281 X10^3/uL (150-400); Red Blood Cell Count 4.65 X10^6/uL (4.5-5.9); Red Cell Distribution Width 14.1 % (11.6-14.8)
[2018-09-04 06:14] LABS: Add Manual Diff / Slide Review YES
[2018-09-04 06:26] LABS: Alanine Aminotransferase 32 IU/L (21-72); Albumin 2.8 g/dL (3.5-5.0); Albumin Globulin Ratio 0.9 (1.0-2.8); Alkaline Phosphatase 77 U/L (38-126); Aspartate Aminotransferase 22 IU/L (17-59); BUN Creatinine Ratio 21.3 (6-22); Bilirubin Total 0.4 mg/dL (0.2-1.3); Blood Urea Nitrogen 17 mg/dL (9-20); Carbon Dioxide 21 mmol/L (22-32); Chloride 111 mmol/L (98-107); Estimated Glomerular Filt Rate > 60.0 mL/min (>60); Globulin 3.1 g/dL (1.7-4.1); Glucose 101 mg/dL (80-110); HEMOLYSIS < 15 (0-50); Potassium 4.1 mmol/L (3.4-5.1); Sodium 141 mmol/L (137-145); Total Protein 5.9 g/dL (6.3-8.2)
[2018-09-04 06:33] LABS: Neutrophils Absolute Manual 11360 /uL (3000-5900); Total Cells Counted 100
[2018-09-04 06:35] LABS: RBC Morphology Normal Morphology
[2018-09-04] MEDS: ASPIRIN 325 MG TABLET PO (08:31)
[2018-09-04] MEDS: DOCUSATE 100 MG CAPSULE PO ×2 (08:31→21:02)
[2018-09-04] MEDS: CIPROFLOXACIN 500 MG TABLET PO ×2 (08:31→21:02)
[2018-09-04] MEDS: ACETAMINOPHEN 325 MG TABLET 650 MG PO (08:32)
[2018-09-04] MEDS: ENOXAPARIN 40 MG/0.4 ML SYRINGE SUBCUT (08:32)
--- NOTE | 2018-09-04 09:45 | PT.IPTN ---
Current Diagnoses Dehydration (09/01/18) Metabolic encephalopathy (09/01/18) Urinary tract infection, site not specified (09/01/18) Gross hematuria (09/01/18) Other retention of urine (09/01/18) Physical Therapy Treatment Note M2 PT-IP Current Condition Start: 09/02/18 17:29 Freq: NEEDED Status: Active Protocol: Document 09/04/18 09:45 [facility] (Rec: 09/04/18 10:12 [facility] [id number]) Physical Therapy Current Condition Current Condition Evaluation Date 09/02/18 Treatment Diagnosis weakness, impaired gait Onset Date 09/01/18 M3 PT-IP Subjective Start: 09/02/18 17:29 Freq: NEEDED Status: Active Protocol: Document 09/04/18 09:45 [facility] (Rec: 09/04/18 10:12 [facility] [id number]) Subjective Physical Therapy Visit Type Type Treatment Note Visit Start Time 09:32 Visit Stop Time 09:45 Total Visit Minutes 13 Number of FULL SERVICE SUPERVISOR Visits 0 Physical Therapy Visit Comments Patient Comments pt got some sleep, feels a litle stronger Therapy Pain Assessment Pain Present Pain Present Denied Pain M4 PT-IP Mobility and Gait Start: 09/02/18 17:29 Freq: NEEDED Status: Active Protocol: Document 09/04/18 09:45 [facility] (Rec: 09/04/18 10:12 [facility] [id number]) PT-Bed Mobility Assessment Sit to Supine Sit to Supine Standby Assistance PT-Transfer Assessment Sit to and From Stand Sit to and from Stand Standby Assistance Equipment Transfer Assistive Device Gait Belt Front Wheeled Walker Transfers Transfer Destination Bed Transfer Technique Stand Step Pivot Transfer Ability Level of Assist Standby Assistance Gait Assessment Gait Gait Assistance Required: Contact Guard Assist Distance (Feet) 250 Assistive Devices Assistive Device Gait Belt Front Wheeled Walker Gait Deviations General Gait Pattern Ataxic Decreased Stride Length Decreased Feet Clearance Flexed Trunk Narrow Based Gait Step-to Gait Factors Limiting Gait Function Factors Limiting Gait Function Decreased Activity Tolerance Decreased Strength Poor Balance Comments Gait Comments Pt able to talk during entire gait training, requires cuing for upright posture and keeping FWW closer to his body while ambulating. M5 PT-IP Objective Assessments Start: 09/02/18 17:29 Freq: NEEDED Status: Active Protocol: Document 09/03/18 15:00 [facility] (Rec: 09/03/18 15:09 [facility] [id number]) Orientation Orientation/Cognition Level of Alertness Alert M6 PT-IP Treatment Start: 09/02/18 17:29 Freq: NEEDED Status: Active Protocol: Document 09/03/18 15:00 [facility] (Rec: 09/03/18 15:09 [facility] [id number]) Physical Therapy Treatment Other Treatments Other Treatment Performed pt had BM, HEALTH PRACTICE MANAGER notified. M7 PT-IP Assessment and Plan Start: 09/02/18 17:29 Freq: NEEDED Status: Active Protocol: Document 09/04/18 09:45 [facility] (Rec: 09/04/18 10:12 [facility] [id number]) PT Summary Assessment and Plan Summary Progress Towards Goals Progressing Toward Goals Assessment Summary Pt requires cuing in order to keep his LEs within the base of the FWW, as well as cuing and assistance for catheter management (tends to get catheter line in wrong positioning when turning, going to sit down). Overall, if pt is to d/c home he would require a FWW for mobility. He is still below his prior level of function and mobility and continue to recommend SNF rehabilitation upon d/c to progress his strength, gait, safety, and overall functional independence. Frequency of Treatment Frequency Of Treatment Twice a Day Treatment Plan Other Recommendations and Next Treatment prog. gait, standing balance Focus Recommendations To Nursing Amount of Assist Needed 1 Person Assist Discharge Recommendations PT Discharge Recommendations SNF Rehab
--- NOTE | 2018-09-04 10:51 | OT.IP.EVAL ---
Current Diagnoses Dehydration (09/01/18) Metabolic encephalopathy (09/01/18) Urinary tract infection, site not specified (09/01/18) Gross hematuria (09/01/18) Other retention of urine (09/01/18) Past Medical History (Last Reviewed 09/01/18 @ 17:31 by Stephanie Macias MD) Arthritis (Chronic) BPH (benign prostatic hyperplasia) (Chronic) Depression (Chronic) Hyperlipemia (Chronic) Hypertension (Chronic) Osteopenia (Chronic) Osteoporosis (Chronic) Colon polyps (Resolved) Hernia (Resolved) History of alcohol abuse (Resolved 1980) Shoulder pain (Resolved) Urinary retention (Resolved ~04/2017) Surgical History (Last Reviewed 09/01/18 @ 17:31 by Stephanie Macias MD) Hx of cystoscopy (Acute 04/2017) Hx of transurethral resection of prostate (Resolved 04/2017) History of cataract removal with insertion of prosthetic lens (02/2016) Status post colectomy (2010) Status post hernia repair (05/2013) Occupational Therapy Inpatient Evaluation/Re-Eval M1 PT/OT-IP Prior Functional Status Start: 09/02/18 17:29 Freq: NEEDED Status: Active Protocol: Document 09/04/18 10:29 [facility] (Rec: 09/04/18 10:51 [facility] [id number]) Medical Review Prior Functional Status Medical History Reviewed Yes Diet/Fluid Consistency Regular Communication WNL Mobility and Gait Independent with cane, community distances Activities of Daily Living and IADL's Independent, mostly eats sandwiches Social History Household Members none Living Arrangements Fpc Number of Stairs To Enter/Railing? Pt states has multiple steps down to get out to the front door and bathroom. Home Equipment Straight Cane Additional Social History Comment he lives in a boarding house with a shared bathroom M2 OT-IP Current Condition Start: 09/02/18 16:17 Freq: Status: Active Protocol: Document 09/04/18 10:29 [facility] (Rec: 09/04/18 10:51 [facility] [id number]) Occupational Therapy Current Condition Current Condition Evaluation Date 09/04/18 Treatment Diagnosis UTI, wweakness Diagnosis Onset Date 09/01/18 M3 OT- IP Subjective and Pain Start: 09/02/18 16:17 Freq: Status: Active Protocol: Document 09/04/18 10:29 [facility] (Rec: 09/04/18 10:51 [facility] [id number]) OT- Subjective Occupational Therapy Visit Type Type Initial Evaluation Visit Start Time 08:55 Visit Stop Time 09:25 Total Visit Minutes 30 Notes Pt wanting to get up after asking pt if he was needing to use the bathroom. Occupational Therapy Visit Comments Patient/Caregiver Goals Pt wants to go home. M4 OT- IP ADL's Start: 09/02/18 16:17 Freq: Status: Active Protocol: Document 09/04/18 10:29 [facility] (Rec: 09/04/18 10:51 [facility] [id number]) OT ADL-Grooming Comments OT Grooming Comments Pt able to brush his hair and wash his face while sitting on the BSC. OT ADL-Dressing General Eval Lower Body Dressing Ability Standby Assistance Contact Guard Assistance Comments OT Dressing Comments Pt able to bam/doff socks while sitting. Pt needing CGA for balance while pulling up brief over his hips. OT ADL-Toileting General Evaluation Toileting Ability Minimal Assistance Areas Needing Assistance Manage Clothing Comments OT Toileting Comments Assist for catheter management , vc for completeness while pt trying to do his own hygiene after bowel movement. OT ADL-Bathing Comments OT Bathing Comments Pt states does not shower at home and prefers to sponge off as needed. M5 OT- IP IADL's Start: 09/02/18 16:17 Freq: Status: Active Protocol: Document 09/04/18 10:29 [facility] (Rec: 09/04/18 10:51 [facility] [id number]) OT-Instrumental Activities of Daily Living Meal Preparation Meal Preparation Comments Pt makes sandwiches usually for meals. M6 OT- IP Functional Cognition Start: 09/02/18 16:17 Freq: Status: Active Protocol: Document 09/04/18 10:29 [facility] (Rec: 09/04/18 10:51 [facility] [id number]) Cognitive Factors Limiting Selfcare Function Cognitive Ability Level of Alertness Alert Patient Orientation Name Place Situation Attention Span Ability Capable of Focused Attention Capable of Sustained Attention Ability to Follow Commands Able to Follow One Step Commands Safety Awareness Underestimates Need for Assistance Problem Solving Ability Needs Assist to Identify Solutions Cognitive Comments Cognitive Assessment Comments Pt poor awarenss for hygiene and decreased initiation to request assist. OT- Vision and Hearing OT- Hearing Assessment OT- Hearing Assessment WFL M7 OT- IP Mobility and Balance Start: 09/02/18 16:17 Freq: Status: Active Protocol: Document 09/04/18 10:29 [facility] (Rec: 09/04/18 10:51 [facility] [id number]) OT- Bed Mobility Assessment Rolling Type of Rolling Roll to Left Level of Assistance Standby Assistance Bedrails Supine to Sit Supine to Sit Assist Standby Assistance OT-Transfer Assessment Sit to and From Stand Sit to and from Stand Contact Guard Assistance Minimal Assistance Transfers Transfer Ability Minimal Assistance Technique Transfer Destination Bed Bedside Commode Devices Transfer Assistive Devices Gait Belt Front Wheeled Walker Comments Mobility Comments Pt very unsteady on his feet and needing physical assist for balance and had LOB while trying to get up from the bed. Pt poor dynamic balance and is a high fall risk. OT- Balance Assessment Sitting Balance and Reactions Static Sitting Balance Ability Normal Dynamic Sitting Balance Ability Good Standing Balance and Reactions Static Standing Balance Ability Fair Dynamic Standing Balance Ability Poor M8 OT- IP Objective Assessments Start: 09/02/18 16:17 Freq: Status: Active Protocol: Document 09/04/18 10:29 [facility] (Rec: 09/04/18 10:51 [facility] [id number]) OT Gross Range of Motion Upper Extremity Range of Motion Assessment Within Functional Limits OT Strength Comments Strength Comments BUE 4-/5 OT- Coordination Assessment Comments Coordination Comments Able to manage opening of items on his tray WFL for FMS. OT-Muscle Tone Assessment Muscle Tone WNL Yes M9 OT- IP Assessment and Plan Start: 09/02/18 16:17 Freq: Status: Active Protocol: Document 09/04/18 10:29 [facility] (Rec: 09/04/18 10:51 [facility] [id number]) OT Summary Assessment and Plan Potential Rehabilitation Potential Good Analytic Complexity at Evaluation Moderate Summary OT Impairments Balance Functional Cognition Functional Mobility Grooming Dressing Toileting Bathing Toilet Transfers Shower Transfers Progress Towards Goals Slow Progress due to Medical Issues Slow Progress due to Cognition Assessment Summary Pt MOD complexity due to now needing assist for all ADl and functional mobility needs, pt has decreased balance and is a high fall risk. Pt has multiple steps at home and would benefit from short skilled rehab. Goals Grooming Goal Independent Dressing Goal Independent Toileting Goal Independent Bathing Goal Standby Assistance Toilet Transfer Goal Independent Shower Transfer Goal Contact Guard Assistance Days to Meet Goals 7 Frequency of Treatment Frequency Of Treatment Once a Day Treatment Plan OT Treatment Plan ADL Training Functional Cognition Training Functional Mobility IADL Training Patient/Family Education Discharge Planning Discharge Recommendations OT Discharge Recommendations SNF Rehab Home Equipment Needs Shower chair, FWW
--- NOTE | 2018-09-04 12:37 | CM.DPC ---
DCP/Cont Per PT and OT eval, while patient is progressing with therapy he continues to require cuing for catheter management. SNF remains that recommended discharge plan, but should patient discharge home FWW would be needed. Met with patient and discussed DCP. Patient reports understanding of why SNF is recommended but states he is stubborn and needs to be really convinced. Patient reports to not wanting a catheter placed but stated he eventually understood the need and is more open. Provided patient Medicare Choice List and ask patient his concerns regarding SNF vs home. Patient stated he has three vehicles, two of which are at the boarding house and one in the hospital parking lot that is unable to be locked. Patient is worried about those vehicles. SW asked if he had someone who get assist him with moving his vehicle to the boarding house. Patient said i suppose. Patient stated he is unsure what he wants to do with his medical care because he doesn't know what the future holds. He is aware he needs to see a urologist but doesn't want to go to [facility]. Patient stated he is weaker and slower but is not sure if SNF will assist. Patient did agreed to being open minded on SNF and would review the Choice List and provide SW two options should be feel it is the best option. Patient is pending ultrasound of the abdomen. Plan: Pending. SNF remains the safest options but patient is not 100% agreeable to that plan. Patient does require a urologist appointment to be scheduled sooner
--- NOTE | 2018-09-04 15:30 | PT.IPTN ---
Current Diagnoses Dehydration (09/01/18) Metabolic encephalopathy (09/01/18) Urinary tract infection, site not specified (09/01/18) Gross hematuria (09/01/18) Other retention of urine (09/01/18) Physical Therapy Treatment Note M2 PT-IP Current Condition Start: 09/02/18 17:29 Freq: NEEDED Status: Active Protocol: Document 09/04/18 09:45 [facility] (Rec: 09/04/18 10:12 [facility] [id number]) Physical Therapy Current Condition Current Condition Evaluation Date 09/02/18 Treatment Diagnosis weakness, impaired gait Onset Date 09/01/18 M3 PT-IP Subjective Start: 09/02/18 17:29 Freq: NEEDED Status: Active Protocol: Document 09/04/18 15:30 [facility] (Rec: 09/04/18 16:09 [facility] [id number]) Subjective Physical Therapy Visit Type Type Patient Refusal Notes Pt reports he is not doing well, tired. Requested to hold PT this afternoon. After further discussion, Inna from OT states that pt has many steps at home, will need to perform them with this pt at some time during this episode of care. Will attempt PT again tomorrow. Frequency of Treatment Frequency Of Treatment Twice a Day Treatment Plan Other Recommendations and Next Treatment prog. gait, standing balance Focus Recommendations To Nursing Amount of Assist Needed 1 Person Assist Discharge Recommendations PT Discharge Recommendations SNF Rehab
--- NOTE | 2018-09-04 17:31 | P.PN_ITS ---
Subjective Date Patient Seen: 09/04/18 Time Patient Seen: 12:31 Interval history: History of present illness Patient with a remarkably dilated urinary bladder of 2000 cc before Eagle catheter was placed. Patient noted with urinary tract infection and started on Rocephin. Organism reported Proteus mirabilis sensitive to Cipro. Antibiotic was changed to Cipro 500 p.o. b.i.d.. PSA level came back at 100 with likely prostatic cancer has underlying etiology For the obstructive uropathy. Patient with an elevated WBC and I did a limited ultrasound of the gallbladder Which she reports acute cholecystitis. Note a new general surgeon is coming on duty in a.m. on WednesdaySeptember 05 I requested nursing staff to call Dr. Macias to consider obtaining general surgeon consult tomorrow in a.m.. Patient with exorbitant amount of bleeding in the urine which is certainly expected with such a large volume bladder Identified before Eagle is placed. The bleeding appears to be subsiding. Review of systems No chest pain or shortness of breath. No nausea. No complaint of abdominal pain in the right upper quadrant. No suprapubic discomfort noted either. Exam Vital Signs (past 8 hours): - 09/04/18 16:23 Temperature 97.5 F L Pulse Rate 71 Respiratory Rate 17 Blood Pressure 120/72 Pulse Oximetry 95 Oxygen Delivery Method Room Air Oxygen Flow Rate 0 Narrative Exam Narrative: General appearance patient is awake and alert no apparent distress at rest Psychiatric well oriented to time place and person flat affect is evident Respiratory fairly clear to auscultation no wheezes crackles good airflow Cardiovascular regular rate rhythm no murmur rubs or gallops PMI nondisplaced + 3 pulses to extremities GI no significant tenderness to palpation positive bowel sounds are noted no distension no guarding no bruits Neurologic no focal neurologic changes cranial nerves 2-12 grossly intact Objective Labs Result Diagrams: 09/04/18 05:31 09/04/18 05:31 Labs: Laboratory Results - last 24 hr 09/03/18 09/04/18 09/04/18 16:50 05:31 05:31 WBC 16.0 H RBC 4.65 Hgb 14.6 Hct 42.6 MCV 91.5 MCH 31.3 MCHC 34.2 RDW 14.1 Plt Count 281 Neut % (Auto) Not Reportable Lymph % (Auto) Not Reportable [place] % (Auto) Not Reportable Eos % (Auto) Not Reportable Baso % (Auto) Not Reportable Total Counted 100 100 Seg Neutrophils % 64.0 58.0 Band Neutrophils % 13.0 H Lymphocytes % (Manual) 27.0 22.0 L Monocytes % (Manual) 7.0 6.0 Eosinophils % (Manual) 1.0 L Metamyelocytes % 1.0 H 1.0 H Neutrophils # (Manual) 34185 H 97468 H Smudge Cells 1+ H RBC Morphology Normal morphology Normal morphology Sodium 141 Potassium 4.1 Chloride 111 H Carbon Dioxide 21 L BUN 17 Creatinine 0.80 Estimated GFR > 60.0 BUN/Creatinine Ratio 21.3 Glucose 101 Calcium 8.0 L Total Bilirubin 0.4 AST 22 ALT 32 Alkaline Phosphatase 77 Total Protein 5.9 L Albumin 2.8 L Globulin 3.1 Albumin/Globulin Ratio 0.9 L Assessment & Plan Plan: Assessment/Plan Narrative: Hematuria: A gross hematuria is evident and likely related to the overly extended bladder with predisposition to bleed once decompressed Continue to monitor the hemoglobin hematocrit. Will transfuse if indicated. Continue to monitor H&H Obstructive uropathy Note 2 L of urine immediately evacuated once Eagle catheter placed Will expect hemorrhagic urinary output to continue for several days Patient okay with discharge with Eagle catheter and leg bag until seen by urologist. We need to set up by urologist outpatient visit for patient preferably within a week after his discharge. PSA level 100. Such a high level supports the diagnosis of prostate cancer. Patient apparently has been told he has prostate cancer in the past. Patient admits he has been trying to ignore the problem and realizes the importance of pursuing care at this point Acute UTI ceftriaxone antibiotic provided Altered and sensitivity report Proteus mirabilis organism sensitive to Rocephin as well as Cipro. I switched antibiotic to Cipro 500 p.o. b.i.d. to continue treating Acute metabolic encephalopathy resolved Likely secondary to urinary tract infection and acute urinary retention Patient is well-oriented in a.m. on September 02 Acute dehydration resolving continue Iv hydration as tolerated Suspected prostate cancer Patient will need to follow up with the urologist with the resident in her hospital transfer or discharge and outpatient follow-up Time Spent With Patient Time with patient: 25 - 35 minutes (25 min) Quality VTE Deep Vein Thrombosis/Pulmonary Embolism Present on Admission: No
--- NOTE | 2018-09-04 18:35 | PC.NURSE ---
This RN changed urinary catheter bag; bag and tubing were becoming discolored and were collecting blood clots. Urine is draining to gravity and knott is secured to right thigh. Urine is still dark red. call light in reach, bed alarm active, will continue to monitor.
[2018-09-04] MEDS: ATORVASTATIN 20 MG TABLET 40 MG PO (21:02)
[2018-09-05] VITALS (10 sets, daily range): BP systolic 105–141; BP diastolic 51–77; PULSE 69–79; RESP 16–20; TEMP 36.6–37.2; O2SAT 94–98; BMI 21.4
[2018-09-05] MEDS: SODIUM CHLORIDE 0.45% 1,000 ML 125 ML IV ×3 (00:57→17:09)
[2018-09-05 06:04] LABS: Hemoglobin 14.7 g/dL (13.5-17.5); Mean Corpuscular HGB Conc 33.4 % (30-36); Mean Corpuscular Hemoglobin 31.1 PG (26-34); Mean Corpuscular Volume 93.1 fL (80-100); Platelet Count 266 X10^3/uL (150-400); Red Blood Cell Count 4.72 X10^6/uL (4.5-5.9); Red Cell Distribution Width 14.3 % (11.6-14.8)
[2018-09-05 06:11] LABS: Add Manual Diff / Slide Review YES; Alanine Aminotransferase 39 IU/L (21-72); Albumin 2.9 g/dL (3.5-5.0); Alkaline Phosphatase 73 U/L (38-126); Aspartate Aminotransferase 27 IU/L (17-59); BUN Creatinine Ratio 21.4 (6-22); Bilirubin Total 0.5 mg/dL (0.2-1.3); Blood Urea Nitrogen 15 mg/dL (9-20); Calcium 7.8 mg/dL (8.4-10.2); Carbon Dioxide 21 mmol/L (22-32); Chloride 112 mmol/L (98-107); Estimated Glomerular Filt Rate > 60.0 mL/min (>60); Glucose 96 mg/dL (80-110); HEMOLYSIS 20 (0-50); Potassium 4.4 mmol/L (3.4-5.1); Sodium 142 mmol/L (137-145); Total Protein 5.9 g/dL (6.3-8.2)
[2018-09-05] MEDS: CIPROFLOXACIN 500 MG TABLET PO ×2 (06:32→20:17)
[2018-09-05 06:42] LABS: Neutrophils Absolute Manual 10050 /uL (3000-5900); RBC Morphology Normal Morphology; Total Cells Counted 100
--- NOTE | 2018-09-05 09:38 | PC.NURSE ---
AM NOTE - pt ret bed after up br, states he feels as well as I can expect with knott catheter, has dark pink urine with sediment in tubing and bag.
[2018-09-05] MEDS: DOCUSATE 100 MG CAPSULE PO ×2 (09:59→20:17)
[2018-09-05] MEDS: ACETAMINOPHEN 325 MG TABLET 650 MG PO (09:59)
[2018-09-05] MEDS: ENOXAPARIN 40 MG/0.4 ML SYRINGE SUBCUT (10:03)
--- NOTE | 2018-09-05 10:56 | OT.IP.TRT ---
Current Diagnoses Dehydration (09/01/18) Metabolic encephalopathy (09/01/18) Urinary tract infection, site not specified (09/01/18) Gross hematuria (09/01/18) Other retention of urine (09/01/18) Occupational Therapy Treatment Note M2 OT-IP Current Condition Start: 09/02/18 16:17 Freq: Status: Active Protocol: Document 09/04/18 10:29 [facility] (Rec: 09/04/18 10:51 [facility] [id number]) Occupational Therapy Current Condition Current Condition Evaluation Date 09/04/18 Treatment Diagnosis UTI, wweakness Diagnosis Onset Date 09/01/18 M3 OT- IP Subjective and Pain Start: 09/02/18 16:17 Freq: Status: Active Protocol: Document 09/05/18 10:44 [facility] (Rec: 09/05/18 10:56 [facility] [id number]) OT- Subjective Occupational Therapy Visit Type Type Treatment Note Visit Start Time 10:05 Visit Stop Time 10:35 Total Visit Minutes 30 Notes Pt not wanting to get up at this time but open to dong cognitive assessment. Occupational Therapy Visit Comments Patient/Caregiver Goals Pt worried about the safety of his cars and wanting to go home , but open to going to skilled rehab. Document 09/04/18 10:29 [facility] (Rec: 09/04/18 10:51 [facility] [id number]) OT-Instrumental Activities of Daily Living Meal Preparation Meal Preparation Comments Pt makes sandwiches usually for meals. Pt states only has mini frig at home and seat maker as not allowed to use the kitchen at the boarding home per pt. Pt states has a microwave and toaster but not enough outlets to use them. Pt states uses food stamps [place] the [place]. M6 OT- IP Functional Cognition Start: 09/02/18 16:17 Freq: Status: Active Protocol: Document 09/05/18 10:44 [facility] (Rec: 09/05/18 10:56 [facility] [id number]) Cognitive Factors Limiting Selfcare Function Cognitive Ability Level of Alertness Alert Patient Orientation Name Age Birthday Month Date Year Day of Week Place Situation Attention Span Ability Capable of Focused Attention Capable of Sustained Attention Ability to Follow Commands Able to Follow Multi-Step Commands Memory Description Short Term Impaired Safety Awareness Underestimates Need for Assistance Problem Solving Ability Needs Assist to Identify Solutions Executive Function Ability Unable to Make Plans Unable to Organize Plans Unable to Remember Details Cognitive Tests SLUMS Pt scored 13/30 which implies cognitive deficits, pt having the most difficulty with short term memory items, math calculations, and knowing how to draw a clock. Cognitive Comments Cognitive Assessment Comments Pt has poor safety awareness, STM and would benefit from / 7 assist for safety and completeness for hygiene needs . Pt states has 3 cars and that he plays a lot of money for insurance for all the cars. When making the suggesting to pt that it may be cheaper to have less cars, pt states, No I like to have a back up plan if a car breaks down to have a car ready to go. Pt would benefit from assist for al money management and medication needs as well. M7 OT- IP Mobility and Balance Start: 09/02/18 16:17 Freq: Status: Active Protocol: Document 09/04/18 10:29 [facility] (Rec: 09/04/18 10:51 [facility] [id number]) OT- Bed Mobility Assessment Rolling Type of Rolling Roll to Left Level of Assistance Standby Assistance Bedrails Supine to Sit Supine to Sit Assist Standby Assistance OT-Transfer Assessment Sit to and From Stand Sit to and from Stand Contact Guard Assistance Minimal Assistance Transfers Transfer Ability Minimal Assistance Technique Transfer Destination Bed Bedside Commode Devices Transfer Assistive Devices Gait Belt Front Wheeled Walker Comments Mobility Comments Pt very unsteady on his feet and needing physical assist for balance and had LOB while trying to get up from the bed. Pt poor dynamic balance and is a high fall risk. OT- Balance Assessment Sitting Balance and Reactions Static Sitting Balance Ability Normal Dynamic Sitting Balance Ability Good Standing Balance and Reactions Static Standing Balance Ability Fair Dynamic Standing Balance Ability Poor M8 OT- IP Objective Assessments Start: 09/02/18 16:17 Freq: Status: Active Protocol: Document 09/04/18 10:29 [facility] (Rec: 09/04/18 10:51 [facility] [id number]) OT Gross Range of Motion Upper Extremity Range of Motion Assessment Within Functional Limits OT Strength Comments Strength Comments BUE 4-/5 OT- Coordination Assessment Comments Coordination Comments Able to manage opening of items on his tray WFL for FMS. OT-Muscle Tone Assessment Muscle Tone WNL Yes M9 OT- IP Assessment and Plan Start: 09/02/18 16:17 Freq: Status: Active Protocol: Document 09/05/18 10:44 [facility] (Rec: 09/05/18 10:56 [facility] [id number]) OT Summary Assessment and Plan Summary Assessment Summary Pt would benefit from skilled rehab due to poor safety awareness, balance, weakness, and needing assist for completeness for hygiene and overall well being. If not able to go to skilled rehab, pt would benefit from 24 assist, and higher care from currently living in boarding room on his own. Goals Days to Meet Goals 7 Frequency of Treatment Frequency Of Treatment Once a Day Treatment Plan OT Treatment Plan ADL Training Functional Cognition Training Functional Mobility IADL Training Patient/Family Education Discharge Planning Discharge Recommendations OT Discharge Recommendations SNF Rehab Other Discharge Recommendations 24/7 care due to poor safety awareness and ability to care for ADl's and IADl needs. Home Equipment Needs Shower chair, FWW
--- NOTE | 2018-09-05 14:27 | PM.PN.1 ---
Subjective Date Patient Seen: 09/05/18 Interval history: No specific complaints. Patient continues to have hematuria. He is aware of a biopsy of his prostate but not aware of a diagnosis of prostate cancer. He wants to go home Exam Vital Signs (past 8 hours): - 09/05/18 07:35 09/05/18 09:43 Temperature 98.5 F Pulse Rate 69 Respiratory Rate 18 Blood Pressure 113/74 Pulse Oximetry 95 97 Oxygen Delivery Method Room Air Oxygen Flow Rate 0 Narrative Exam Narrative: Pleasant gentleman in NAD Lungs: Clear to auscultation CV: RRR nl Sl S2 Abd: soft/ non tender/ non distended Ext: no edema Knott with jaylon blood Objective Labs Result Diagrams: 09/05/18 05:24 09/05/18 05:24 Labs: Laboratory Results - last 24 hr 09/05/18 09/05/18 05:24 05:24 WBC 15.0 H RBC 4.72 Hgb 14.7 Hct 44.0 MCV 93.1 MCH 31.1 MCHC 33.4 RDW 14.3 Plt Count 266 Neut % (Auto) Not Reportable Lymph % (Auto) Not Reportable [place] % (Auto) Not Reportable Eos % (Auto) Not Reportable Baso % (Auto) Not Reportable Total Counted 100 Seg Neutrophils % 56.0 Band Neutrophils % 11.0 H Lymphocytes % (Manual) 21.0 L Monocytes % (Manual) 8.0 Eosinophils % (Manual) 3.0 Metamyelocytes % 1.0 H Neutrophils # (Manual) 80305 H RBC Morphology Normal morphology Sodium 142 Potassium 4.4 Chloride 112 H Carbon Dioxide 21 L BUN 15 Creatinine 0.70 Estimated GFR > 60.0 BUN/Creatinine Ratio 21.4 Glucose 96 Calcium 7.8 L Total Bilirubin 0.5 AST 27 ALT 39 Alkaline Phosphatase 73 Total Protein 5.9 L Albumin 2.9 L Globulin 3.0 Albumin/Globulin Ratio 1.0 Assessment & Plan (1) Acute urinary retention: Problem details: knott catheter placed, needs outpatient urology follow up of this and Prostate Cancer Current visit: Yes Status: Acute (2) Hematuria: Problem details: Likely related to urinary tract infection Qualifiers: Glomerular morphologic changes: Hematuria type: gross Qualified Code(s): R31.0 - Gross hematuria Current visit: No Status: Acute (3) Acute UTI: Problem details: Will continue cipro for proteus Current visit: Yes Status: Acute (4) Acute metabolic encephalopathy: Problem details: Likely secondary to urinary tract infection and acute urinary retention Current visit: Yes Status: Acute (5) Cholecystitis: Problem details: General surgery consultation Current visit: Yes Status: Acute Plan: Assessment/Plan Narrative: Patient needs urological evaluation for prostate cancer and urinary retention Quality VTE Deep Vein Thrombosis/Pulmonary Embolism Present on Admission: No
--- NOTE | 2018-09-05 14:32 | P.PN_ITS ---
Subjective Date Patient Seen: 09/05/18 Interval history: No specific complaints. Patient continues to have hematuria. He is aware of a biopsy of his prostate but not aware of a diagnosis of prostate cancer. He wants to go home Exam Vital Signs (past 8 hours): - 09/05/18 07:35 09/05/18 09:43 Temperature 98.5 F Pulse Rate 69 Respiratory Rate 18 Blood Pressure 113/74 Pulse Oximetry 95 97 Oxygen Delivery Method Room Air Oxygen Flow Rate 0 Narrative Exam Narrative: Pleasant gentleman in NAD Lungs: Clear to auscultation CV: RRR nl Sl S2 Abd: soft/ non tender/ non distended Ext: no edema Knott with jaylon blood Objective Labs Result Diagrams: 09/05/18 05:24 09/05/18 05:24 Labs: Laboratory Results - last 24 hr 09/05/18 09/05/18 05:24 05:24 WBC 15.0 H RBC 4.72 Hgb 14.7 Hct 44.0 MCV 93.1 MCH 31.1 MCHC 33.4 RDW 14.3 Plt Count 266 Neut % (Auto) Not Reportable Lymph % (Auto) Not Reportable [place] % (Auto) Not Reportable Eos % (Auto) Not Reportable Baso % (Auto) Not Reportable Total Counted 100 Seg Neutrophils % 56.0 Band Neutrophils % 11.0 H Lymphocytes % (Manual) 21.0 L Monocytes % (Manual) 8.0 Eosinophils % (Manual) 3.0 Metamyelocytes % 1.0 H Neutrophils # (Manual) 66186 H RBC Morphology Normal morphology Sodium 142 Potassium 4.4 Chloride 112 H Carbon Dioxide 21 L BUN 15 Creatinine 0.70 Estimated GFR > 60.0 BUN/Creatinine Ratio 21.4 Glucose 96 Calcium 7.8 L Total Bilirubin 0.5 AST 27 ALT 39 Alkaline Phosphatase 73 Total Protein 5.9 L Albumin 2.9 L Globulin 3.0 Albumin/Globulin Ratio 1.0 Assessment & Plan (1) Acute urinary retention: Problem details: knott catheter placed, needs outpatient urology follow up of this and Prostate Cancer Current visit: Yes Status: Acute (2) Hematuria: Problem details: Likely related to urinary tract infection Qualifiers: Glomerular morphologic changes: Hematuria type: gross Qualified Code( s): R31.0 - Gross hematuria Current visit: No Status: Acute (3) Acute UTI: Problem details: Will continue cipro for proteus Current visit: Yes Status: Acute (4) Acute metabolic encephalopathy: Problem details: Likely secondary to urinary tract infection and acute urinary retention Current visit: Yes Status: Acute (5) Cholecystitis: Problem details: General surgery consultation Current visit: Yes Status: Acute Plan: Assessment/Plan Narrative: Patient needs urological evaluation for prostate cancer and urinary retention Quality VTE Deep Vein Thrombosis/Pulmonary Embolism Present on Admission: No
--- NOTE | 2018-09-05 16:33 | PT.IPTN ---
Current Diagnoses Dehydration (09/01/18) Metabolic encephalopathy (09/01/18) Cholecystitis, unspecified (09/01/18) Urinary tract infection, site not specified (09/01/18) Gross hematuria (09/01/18) Other retention of urine (09/01/18) Physical Therapy Treatment Note M2 PT-IP Current Condition Start: 09/02/18 17:29 Freq: NEEDED Status: Active Protocol: Document 09/04/18 09:45 [facility] (Rec: 09/04/18 10:12 [facility] [id number]) Physical Therapy Current Condition Current Condition Evaluation Date 09/02/18 Treatment Diagnosis weakness, impaired gait Onset Date 09/01/18 M3 PT-IP Subjective Start: 09/02/18 17:29 Freq: NEEDED Status: Active Protocol: Document 09/05/18 16:02 L[facility] (Rec: 09/05/18 16:33 [facility] [id number]) Subjective Physical Therapy Visit Type Type Treatment Note Visit Start Time 14:02 Visit Stop Time 16:20 Total Visit Minutes 18 Physical Therapy Visit Comments Patient Comments Pt willing to ambulate in hallway M4 PT-IP Mobility and Gait Start: 09/02/18 17:29 Freq: NEEDED Status: Active Protocol: Document 09/05/18 16:02 LJ (Rec: 09/05/18 16:33 L[facility] [id number]) PT-Bed Mobility Assessment Supine to Sit Supine to Sit Standby Assistance Sit to Supine Sit to Supine Standby Assistance PT-Transfer Assessment Sit to and From Stand Sit to and from Stand Standby Assistance Equipment Transfer Assistive Device Gait Belt Front Wheeled Walker Transfers Transfer Destination Bed Transfer Technique Stand Step Pivot Transfer Ability Level of Assist Standby Assistance Comments Mobility Comments Pt SBA for bed mobility with min assist for IV management. Able to manage catheter by himself Gait Assessment Gait Gait Assistance Required: Contact Guard Assist Distance (Feet) 125 Assistive Devices Assistive Device Gait Belt Front Wheeled Walker Gait Deviations General Gait Pattern Ataxic Decreased Stride Length Decreased Feet Clearance Flexed Trunk Narrow Based Gait Step-to Gait Factors Limiting Gait Function Factors Limiting Gait Function Decreased Activity Tolerance Decreased Strength Poor Balance Comments Gait Comments Pt required cues for posture and body placement within FWW. Showed awareness of obsticales in hallway by moving around them and waiting for other people to pass. M5 PT-IP Objective Assessments Start: 09/02/18 17:29 Freq: NEEDED Status: Active Protocol: Document 09/03/18 15:00 [facility] (Rec: 09/03/18 15:09 [facility] [id number]) Orientation Orientation/Cognition Level of Alertness Alert M6 PT-IP Treatment Start: 09/02/18 17:29 Freq: NEEDED Status: Active Protocol: Document 09/03/18 15:00 [facility] (Rec: 09/03/18 15:09 [facility] [id number]) Physical Therapy Treatment Other Treatments Other Treatment Performed pt had BM, BAKER HEAD notified. M7 PT-IP Assessment and Plan Start: 09/02/18 17:29 Freq: NEEDED Status: Active Protocol: Document 09/05/18 16:02 LJ (Rec: 09/05/18 16:33 LJ [id number]) PT Summary Assessment and Plan Summary Progress Towards Goals Progressing Toward Goals Assessment Summary Pt pushes FWW too far in front of him requiring cues to keep his body within limits of FWW . Required assist with IV in returning to bed but was able to manage cath. by himself. Goals Bed Mobility Goal Standby Assistance Transfer Goal Contact Guard Assistance Front Wheeled Walker Gait Goal Contact Guard Assistance Minimal Assistance Front Wheel Walker Gait Distance 50 feet Frequency of Treatment Frequency Of Treatment Twice a Day Treatment Plan Other Recommendations and Next Treatment prog. gait, standing balance Focus Recommendations To Nursing Amount of Assist Needed 1 Person Assist Discharge Recommendations PT Discharge Recommendations SNF Rehab
--- NOTE | 2018-09-05 17:23 | PC.NURSE ---
Addendum entered by Komal Funes R.N. 09/05/18 22:30: Relatively uneventful evening. Denies discomfort. IV fluids continue as per orders w/o incidence. Call light w/in reach, bed alsrm on for pt safety. Continue w/plan of care. Original Note: Pt watching TV. Denies discomfort at this time. SpO2 95% RA, Lungs clear, IV fluids infusing via pump as per orders w/o incidence. Sitting on side of bed for dinner. Eagle cath patent red colored urine. Call light w/in reach, bed alarm on for pt safety.
[2018-09-05] MEDS: ATORVASTATIN 20 MG TABLET 40 MG PO (20:16)
[2018-09-06] MEDS: SODIUM CHLORIDE 0.45% 1,000 ML 125 ML IV ×2 (00:29→09:29)
[2018-09-06 00:30] VITALS: O2SAT 94
[2018-09-06 05:58] LABS: Add Manual Diff / Slide Review NO; Basophils Percent Auto 0.6 % (0-2); Eosinophils Percent Auto 3.1 % (2-4); Hematocrit 43.7 % (41-53); Hemoglobin 14.8 g/dL (13.5-17.5); Lymphocytes Percent Auto 18.5 % (25-40); Mean Corpuscular HGB Conc 33.7 % (30-36); Mean Corpuscular Hemoglobin 31.5 PG (26-34); Mean Corpuscular Volume 93.4 fL (80-100); Monocytes Percent Auto 6.8 % (3-14); Neutrophils Absolute Auto 9200 /uL (3000-5900); Platelet Count 290 X10^3/uL (150-400); Red Blood Cell Count 4.68 X10^6/uL (4.5-5.9); Red Cell Distribution Width 13.9 % (11.6-14.8)
[2018-09-06 06:07] VITALS: BP 129/68; PULSE 64; RESP 20; TEMP 37; O2SAT 96
[2018-09-06 06:09] LABS: Alanine Aminotransferase 43 IU/L (21-72); Albumin 2.9 g/dL (3.5-5.0); Albumin Globulin Ratio 0.9 (1.0-2.8); Alkaline Phosphatase 73 U/L (38-126); Aspartate Aminotransferase 25 IU/L (17-59); Bilirubin Total 0.5 mg/dL (0.2-1.3); Blood Urea Nitrogen 16 mg/dL (9-20); Calcium 8.1 mg/dL (8.4-10.2); Carbon Dioxide 21 mmol/L (22-32); Chloride 112 mmol/L (98-107); Estimated Glomerular Filt Rate > 60.0 mL/min (>60); Globulin 3.1 g/dL (1.7-4.1); Glucose 96 mg/dL (80-110); HEMOLYSIS < 15 (0-50); Potassium 4.2 mmol/L (3.4-5.1); Sodium 140 mmol/L (137-145)
[2018-09-06 08:30] VITALS: O2SAT 95
[2018-09-06 08:35] VITALS: BP 150/72; PULSE 95; RESP 18; TEMP 36.7; O2SAT 96
[2018-09-06] MEDS: CIPROFLOXACIN 500 MG TABLET PO (08:51)
[2018-09-06] MEDS: DOCUSATE 100 MG CAPSULE PO (08:51)
[2018-09-06] MEDS: ENOXAPARIN 40 MG/0.4 ML SYRINGE SUBCUT (08:52)
[2018-09-06] MEDS: ACETAMINOPHEN 325 MG TABLET 650 MG PO (08:54)
--- NOTE | 2018-09-06 10:03 | PC.NURSE ---
Addendum entered by Shabnam Cox R.N. 09/06/18 14:10: TSF - hep lock removed, belongings packed, including cell phone and it trainer, watch, clothing, snacks, shoes and slippers, has a cane, report provided to DAVID Garcia, lynne to and escorted by [facility] staff to their van for transport. Original Note: Addendum entered by Shabnam Cox R.N. 09/06/18 11:19: MS - up with phys therapy, ambul hallway w/fww, gait belt, pt takes very small shuffling steps, wobbly with turning. Original Note: AM NOTE - up dangle position for breakfast, amish diet, no nausea, minimum discomfort, primarily at catheter site, meatus w/o drainage, vaseline applied, tension on catheter checked, earlier pt had rec'd call from urology office on his cell phone and states I'm confused, spoke to Paola at Urology and they have scheduled an appt for pt at 0900 on 09/19, when pt informed, states initially It's not going to happen, concern about travel to [facility], discussed pt having someone from his [facility] assist with transportation, ra 95%, hr reg, knott with dark pink and sediment in tubing.
[2018-09-06] MEDS: TAMSULOSIN 0.4 MG CAPSULE PO (11:54)
--- NOTE | 2018-09-06 11:57 | PT.IPTN ---
Current Diagnoses Dehydration (09/01/18) Metabolic encephalopathy (09/01/18) Cholecystitis, unspecified (09/01/18) Urinary tract infection, site not specified (09/01/18) Gross hematuria (09/01/18) Other retention of urine (09/01/18) Physical Therapy Treatment Note M2 PT-IP Current Condition Start: 09/02/18 17:29 Freq: NEEDED Status: Active Protocol: Document 09/04/18 09:45 RCC (Rec: 09/04/18 10:12 RCC [id number]) Physical Therapy Current Condition Current Condition Evaluation Date 09/02/18 Treatment Diagnosis weakness, impaired gait Onset Date 09/01/18 M3 PT-IP Subjective Start: 09/02/18 17:29 Freq: NEEDED Status: Active Protocol: Document 09/06/18 11:12 CLB (Rec: 09/06/18 11:57 CLB [id number]) Subjective Physical Therapy Visit Type Visit Start Time 11:12 Visit Stop Time 11:35 Total Visit Minutes 23 Number of QUALITY CONSULTANT Visits 23 Physical Therapy Visit Comments Patient Comments Pt worried about going home, he feels like he might fall and get hurt. Therapy Pain Assessment Pain Present Pain Present Denied Pain M4 PT-IP Mobility and Gait Start: 09/02/18 17:29 Freq: NEEDED Status: Active Protocol: Document 09/06/18 11:12 CLB (Rec: 09/06/18 11:57 CLB [id number]) PT-Bed Mobility Assessment Supine to Sit Supine to Sit Minimal Assistance Scooting Scooting to Edge of Bed Standby Assistance PT-Transfer Assessment Sit to and From Stand Sit to and from Stand Contact Guard Assistance Equipment Transfer Assistive Device Gait Belt Front Wheeled Walker Transfers Transfer Destination Chair Transfer Technique Stand Step Pivot Transfer Ability Level of Assist Contact Guard Assistance Comments Mobility Comments Pt needed Min A to come to full sitting position but able to get to EOB SBA. Pt needed cues for chair approach as pt left walker to Gait Assessment Gait Gait Assistance Required: Contact Guard Assist Distance (Feet) 125 Assistive Devices Assistive Device Gait Belt Front Wheeled Walker Gait Deviations General Gait Pattern Ataxic Decreased Stride Length Decreased Feet Clearance Festinating Flexed Trunk Narrow Based Gait Step-to Gait Factors Limiting Gait Function Factors Limiting Gait Function Decreased Activity Tolerance Decreased Strength Poor Balance Comments Gait Comments Pt needs Max cues for posture and body placement in walker. Pt festinates when walking past people or equipment in hallway. M5 PT-IP Objective Assessments Start: 09/02/18 17:29 Freq: NEEDED Status: Active Protocol: Document 09/03/18 15:00 RCC (Rec: 09/03/18 15:09 RCC [id number]) Orientation Orientation/Cognition Level of Alertness Alert M6 PT-IP Treatment Start: 09/02/18 17:29 Freq: NEEDED Status: Active Protocol: Document 09/03/18 15:00 RCC (Rec: 09/03/18 15:09 RCC [id number]) Physical Therapy Treatment Other Treatments Other Treatment Performed pt had BM, CHEMICAL DEPENDENCY NURSE notified. M7 PT-IP Assessment and Plan Start: 09/02/18 17:29 Freq: NEEDED Status: Active Protocol: Document 09/06/18 11:12 CLB (Rec: 09/06/18 11:57 CLB [id number]) PT Summary Assessment and Plan Summary Impairments Pain Strength Balance Coordination Cognition Bed Mobility Transfers Gait Activity Tolerance Progress Towards Goals Progressing Toward Goals Assessment Summary Pt requires CGA during ambulation with Max cues for staying inside walker and step length. Pt has shuffled gait with toe out and heels touching. Pt is not safe at this time to d/c home and would benefit from SNF rehab d /c to progress his strength, gait, safety, and overall functional independence. Goals Bed Mobility Goal Standby Assistance Transfer Goal Contact Guard Assistance Front Wheeled Walker Gait Goal Contact Guard Assistance Minimal Assistance Front Wheel Walker Gait Distance 50 feet Frequency of Treatment Frequency Of Treatment Twice a Day Treatment Plan Physical Therapy Treatment Plan Bed Mobility Training Transfer Training Gait Training Therapeutic Exercise Balance Retraining Discharge Planning Neuromuscular Re-ed Coordination Retraining Other Recommendations and Next Treatment prog. gait, standing balance Focus Recommendations To Nursing Amount of Assist Needed 1 Person Assist Discharge Recommendations PT Discharge Recommendations SNF Rehab
[2018-09-06 12:00] VITALS: BP 134/71; PULSE 86; RESP 20; TEMP 36.6; O2SAT 96
--- NOTE | 2018-09-06 12:06 | PM.DS.1 ---
History of Present Illness Chief complaint: everything Narrative: Patient was in the emergency department at [facility] 08/25 for hematuria. It was recommended that he have a knott catheter placed but he refused. Patient presented to the Emergency Department today with acute abdominal pain, dehydration, and failure to thrive. Patient was found to have 2000cc in his bladder, with urine dark and infected. CT scan confimed the findings as above. The patient is a poor history but states he has not eaten in the last 2-3 days. He denies any fever or chills. He denies nausea vomiting or diarrhea. He lives in a boarding facility . Patient reports some rectal bleeding but upon questioning he was referring to his hematuria. Patient is admitted to the hospital for urinary retention, dehydration, and an acute urinary tract infection. Discharge Providers Date of admission: 09/01/18 15:46 Primary care physician: Katia Frances PA-C Consults: 09/01/18 17:26 Consult to Occupational Therapy Evaluate & Treat Comment: Physician Instructions: Evaluate and treat Consult to Physical Therapy Evaluate & Treat Comment: Physician Instructions: Evaluate and Treat 09/04/18 07:17 Consult to Discharge Planning Routine Comment: luciana for Urologist to see patient this week Discharge provider: Stephanie Macias MD Discharge Date: 09/06/18 Summary Discharge Diagnosis: Obstructive Uropathy Urinary Retention hematuria Prostate Cancer Urinary Tract Infection Metabolic Encephalopathy Acute Cholecystitis Hospital Course: Patient was admitted to the hospital for evaluation of hematuria, abdominal discomfort, and confusion. Abd/pelvic CT confirmed a grossly distended bladder with 2000cc of urine. Urine culture was positive for Proteus Mirabilis. The patient was initally treated with ceftriaxone and subsequently switched to ciprofloxacin. Patient had a PSA which was markedly elevated at 100. Patient had improvement of his confusion. His ABD/CT revealed an abnormal gallbladder. Subsequent Abdominal ultrasound confirmed acute cholecystitis. The patient was without symptoms. I spoke to Dr. Fields from general surgery who recommended outpatient follow up. She specifically recommended that he complete his work up for his bladder and prostate prior to consderation of choleycystectomy. The patient made significant improvement but continued to be very weak. We spoke to his Urologist at [facility] who recommended starting him on flomax with outpatient follow up scheduled for September 19, 2018. Patient was deemed appropriate for discharge to the SNF for ongoing care. Status at Discharge Functional status at discharge: uses cane/walker Overall status at discharge: patient is not back to baseline Time Spent with Patient Less than 30 minutes Exam Vital Signs (past 8 hours): - 09/06/18 06:07 09/06/18 08:30 09/06/18 08:35 Temperature 98.6 F 98.1 F Pulse Rate 64 95 H Respiratory Rate 20 18 Blood Pressure 129/68 150/72 H Pulse Oximetry 96 95 96 Oxygen Delivery Method Room Air Oxygen Flow Rate 0 Narrative Exam Narrative: Pleasant male in no acute distress Lungs: Clear to auscultation CV: RRR nl Sl S2 Abd: soft/mildly tender/ no board like rigidity or rebound tenderness Knott catheter in place with blood Ext: no edema Objective Labs Result Diagrams: 09/06/18 05:32 09/06/18 05:32 Labs: Laboratory Results - last 24 hr 09/06/18 09/06/18 05:32 05:32 WBC 13.0 H RBC 4.68 Hgb 14.8 Hct 43.7 MCV 93.4 MCH 31.5 MCHC 33.7 RDW 13.9 Plt Count 290 Neut % (Auto) 71.0 Lymph % (Auto) 18.5 L [place] % (Auto) 6.8 Eos % (Auto) 3.1 Baso % (Auto) 0.6 Neut # (Auto) 9200 H Sodium 140 Potassium 4.2 Chloride 112 H Carbon Dioxide 21 L BUN 16 Creatinine 0.80 Estimated GFR > 60.0 BUN/Creatinine Ratio 20.0 Glucose 96 Calcium 8.1 L Total Bilirubin 0.5 AST 25 ALT 43 Alkaline Phosphatase 73 Total Protein 6.0 L Albumin 2.9 L Globulin 3.1 Albumin/Globulin Ratio 0.9 L Discharge Plan Discharge Plan Discharge Problem: Acute UTI, Acute metabolic encephalopathy, Acute dehydration, Adult failure to thrive Patient Disposition: SNF Transportation: Facility vehicle Discharge comment: Patient needs to follow up with Dr. Fields in 2 weeks to evaluate his gallbladder I certify the postop hospital intermediate care is medically necessary on a continuing basis for any conditions for which he/ she received care during this hospitalization.: Yes The receiving facility has agreed to accept transfer and provide medical treatment.: Yes Discharge Med Rec/Prescriptions Prescriptions: New ciprofloxacin HCl [Cipro] 500 mg Tablet 500 mg PO 0700,2100 5 Days Qty: 10 RF: 0 Continue atorvastatin 40 mg tablet 40 mg PO HS Qty: 90 RF: 0 Discontinued aspirin 325 MG tablet,delayed release (DR/EC) 325 mg PO BEDTIME Qty: 0 RF: 0 No Action Adult Diapers Qty: 30 RF: 12 Follow up/Referrals: Dang Underwood MD [Non-Staff] - (Per Paola, pt has been scheduled for follow up removal of knott 09/19 at 9am, will then need to return to clinic at 330pm that day for eval.[phone]. Please send chart notes to clinic when patient has been discharged.) Katia Frances PA-C [Primary Care Provider] - Visit Report/Discharge Packet Instructions: How to Care for Your Knott Catheter -- Male, DI for Urinary Retention in Men, Ciprofloxacin Discharge Data Primary Care Provider: Katia Frances Attending Provider: Stephanie Macias Admit Date/Time: 09/01/18 15:46 Quality VTE Deep Vein Thrombosis/Pulmonary Embolism Present on Admission: No
--- NOTE | 2018-09-06 13:12 | CM.DPC ---
DCP/Continued: Received referral from Dr. Macias this AM that patient is medically stable for discharge. Patient recommended to go to SNF for continued skilled nrsg and therapy. Met with patient to discuss plan. Per notes patient has previously refused SNF. Patient agreeable to short SNF stay. Provided patient with contracted SNF list and first choice is [facility]. Placed call to [facility] admit and they will review for admit. Received return phone call from admit at [facility] and they can accept today. boring machine set up operator jig scheduled for approximately 1:30pm. RN updated. P: [facility] today for continued usp and therapy. KAM Cote
== END 2018-09-06 13:45 | DRG 722 ==
LOC: ED 15:18 → AC 15:50
PROVIDERS: Internal Medicine; Admitting Provider Internal Medicine; Emergency Provider Emergency Medicine; Family Provider Physician Assistant; PCP Physician Assistant; Visit Provider Internal Medicine
DX: C61 Malignant neoplasm of prostate (principal); G93.41 Metabolic encephalopathy; E43 Unspecified severe protein-calorie malnutrition; N13.8 Other obstructive and reflux uropathy; E87.0 Hyperosmolality and hypernatremia; N39.0 Urinary tract infection, site not specified; K80.00 Calculus of gallbladder with acute cholecystitis without obstruction; N40.1 Benign prostatic hyperplasia with lower urinary tract symptoms; E86.0 Dehydration; R19.7 Diarrhea, unspecified; B96.4 Proteus (mirabilis) (morganii) as the cause of diseases classified elsewhere; Z68.21 Body mass index [BMI] 21.0-21.9, adult; I10 Essential (primary) hypertension; E78.5 Hyperlipidemia, unspecified; F32.9 Major depressive disorder, single episode, unspecified
CPT/HCPCS: 36415; 36591; 51701; 51798; 74022; 74177; 76705; 80048; 80053; 81001; 83690; 84153; 84154; 85025; 87077; 87086; 87186; 94762; 96361; 96365; 97116; 97127; 97162; 97166; 97530; 99284; 99285; J1650; J7050

== ENCOUNTER → 2018-09-28 09:39 | Outpatient (CLI) | payer MEDICARE, MEDICAID, SELFPAY ==
[2018-09-01 16:23] VITALS: BMI 21.0
[2018-09-28 10:14] LABS: Cholesterol 129 mg/dL (140-199); HDL Cholesterol 64 mg/dL (40-60); LDL Cholesterol Calculated 50 mg/dL (<100); Triglycerides 75 mg/dL (35-150)
== END ==
PROVIDERS: PCP Physician Assistant; Visit Provider Physician Assistant
DX: E78.5 Hyperlipidemia, unspecified (principal)
CPT/HCPCS: 36415; 80061

== ENCOUNTER → 2018-10-28 09:37 | Outpatient (CLI) | payer MEDICARE, MEDICAID, SELFPAY ==
[2018-09-01 16:23] VITALS: BMI 21.0
[2018-10-28 12:36] LABS: Thyroid Stimulating Hormone 0.69 uIU/mL (0.47-4.68)
[2018-10-28 12:56] LABS: Vitamin B12 306 pg/mL (239-931)
[2018-11-01 14:45] LABS: PSA Free % 8 % (calc) (> 25); PSA, Total 19.7 ng/mL (< 4.1)
== END ==
PROVIDERS: PCP Physician Assistant; Visit Provider Physician Assistant
DX: R97.20 Elevated prostate specific antigen [PSA] (principal); R63.4 Abnormal weight loss; E53.8 Deficiency of other specified B group vitamins
CPT/HCPCS: 36415; 82607; 84153; 84154; 84443

== ENCOUNTER 2018-12-23 09:45 | Outpatient (RCR) | payer MEDICARE, MEDICAID, SELFPAY ==
[2018-09-01 16:23] VITALS: BMI 21.0
--- NOTE | 2018-10-26 12:45 | PT.OIE ---
Current Diagnoses Muscle weakness (generalized) (10/26/18) Other abnormalities of gait and mobility (10/26/18) Other symptoms and signs involving the musculoskeletal system (10/26/18) Past Medical History (Last Reviewed 09/29/18 @ 13:43 by Kimberli Fields MD) Arthritis (Chronic) BPH (benign prostatic hyperplasia) (Chronic) Depression (Chronic) Hyperlipemia (Chronic) Hypertension (Chronic) Osteopenia (Chronic) Osteoporosis (Chronic) Colon polyps (Resolved) Hernia (Resolved) History of alcohol abuse (Resolved 1980) Shoulder pain (Resolved) Urinary retention (Resolved ~04/2017) Past Surgical History (Last Reviewed 09/01/18 @ 17:31 by Stephanie Macias MD) Hx of cystoscopy (Acute 04/2017) Hx of transurethral resection of prostate (Resolved 04/2017) History of cataract removal with insertion of prosthetic lens (02/2016) Status post colectomy (2010) Status post hernia repair (05/2013) Provider Visit Care Team Role Provider Type Katia Frances PA-C Attending Provider Advanced Tele[employer] Switch Technician Family Provider Primary Care Provider Specialty: Medical Address: [address] [place] [address] Email: [email or web address] Physical Therapy Initial Evaluation PT-OP-A Visit Information Start: 10/27/18 15:53 Freq: Status: Active Protocol: Document 10/26/18 12:45 RCC (Rec: 10/27/18 16:14 RCC [id number]) Out-Patient Physical Therapy Visit Information Visit Information Visit Type Initial Evaluation Visit Start Time 12:00 Visit Stop Time 12:45 Total Visit Minutes 45 Visit Number 1 Number of HAND SCREEN PRINTER Visits 0 Evaluation Information Evaluation Date 10/26/18 PT-OP-B Current Condition Start: 10/27/18 15:53 Freq: Status: Active Protocol: Document 10/26/18 12:45 RCC (Rec: 10/27/18 16:49 RCC [id number]) Current Condition History of Current Condition Onset Date August 2018 Current Complaints weakness, limited ability to walk and work History of Current Condition Pt is a 73 y/o male presenting to physical therapy with a c/ o generalized weakness, impaired ability to ambulate long distances and work. Pt was admitted at [facility] on 09/01/2018 with complications including hematuria and retention. He received PT and OT in the hospital, was discharged to [facility] on 09/06/18, where he continued to do PT. He is now back home, which is a rented room in a local boarding house , and multiple steps to get to his room. 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 He reports becoming fatigued more rapidly with work related tasks and prolonged walking. He reports generalized weakness in the LEs as well as weakness in the UEs with chronic rotator cuff issues ( he gets cortisone injections by Dr. Camara multiple times per year, not a surgical candidate per pt). Treatment Goals Patient/Caregiver Goals continue to work and progress his activity level with work related tasks, improve walking and strength Current Functional Impairments (Reported) Functional Limitations- Mobility/Gait limited to short distance ambulation without device Functional Limitations- Work/School unable to perform usual work duties Personal Factors Other Personal Factors That May Effect osteoporosis, depression, Therapy/Recovery urinary retention; social and economical factors limiting pt 's resources (and limited space for performance of HEP) PT-OP-D Balance Start: 10/27/18 15:53 Freq: Status: Active Protocol: Document 10/26/18 12:45 RCC (Rec: 10/27/18 16:49 [facility] [id number]) Balance Tests Single Limb Standing Single Limb- Right unable Single Limb- Left unable Semi-Tandem Standing Semi-Tandem Standing Balance 2 sec bilaterally PT-OP-E Functional Tests Start: 10/27/18 15:53 Freq: Status: Active Protocol: Document 10/26/18 12:45 RCC (Rec: 10/27/18 16:49 [facility] [id number]) Functional Tests 6 Minute Walk Test Distance 832 Device Used none Comments O2 sats 96-97%, HR 90-111 bpm Dynamic Gait Index (DGI) Score 15 DGI Impairment Rating 20 to <40% Impaired (Score 15- 19) PT-OP-G Mobility & Gait Start: 10/27/18 15:53 Freq: Status: Active Protocol: Document 10/26/18 12:45 RCC (Rec: 10/27/18 16:49 RCC [id number]) OP Gait Assessment Gait Deviations General Gait Pattern Decreased Stride Length Decreased Feet Clearance Flexed Trunk Step-to Gait Comments Gait Comments step-to on the L, step-through on the R; shuffling gait with decreased clearance bilaterally (L worse than R) PT-OP-M Strength Start: 10/27/18 15:53 Freq: Status: Active Protocol: Document 10/26/18 12:45 RCC (Rec: 10/27/18 16:49 RCC [id number]) Shoulder Strength Shoulder Manual Muscle Testing Right Flexion 4 Good Extension 4 Good External Rotation 3+ Fair+ Internal Rotation 4 Good Left Flexion 4 Good Abduction (C5) 4 Good External Rotation 3+ Fair+ Internal Rotation 3 Fair Elbow/Forearm Strength Elbow and Forearm Manual Muscle Testing Right Flexion (C6) 4+ Good+ Extension (C7) 4- Good- Left Flexion (C6) 3+ Fair+ Extension (C7) 3 Fair Hip Strength Hip Manual Muscle Testing Right Flexion (L2) 3+ Fair+ Abduction 3 Fair Adduction 4 Good Left Flexion (L2) 3+ Fair+ Abduction 3 Fair Adduction 3+ Fair+ Knee Strength Knee Manual Muscle Testing Right Flexion (S2) 4 Good Extension (L3) 4 Good Left Flexion (S2) 4- Good- Extension (L3) 4 Good PT-OP-Q Treatments Start: 10/27/18 15:53 Freq: Status: Active Protocol: Document 10/26/18 12:45 RCC (Rec: 10/27/18 16:49 [facility] [email or web address]) Therapeutic Exercises Standing Exercises hip extension Standing Exercise Name hip extension Side bilateral Equipment Used standing bar Reps/Minutes 5 each hip abduction Standing Exercise Name hip abduction Side bilateral Equipment Used standing bar Reps/Minutes 5 each marching Standing Exercise Name marching Side bilateral Equipment Used standing bar Reps/Minutes 10 each PT-OP-T Assessment and Plan Start: 10/27/18 15:53 Freq: Status: Active Protocol: Document 10/26/18 12:45 RCC (Rec: 10/27/18 16:49 [facility] [id number]) Physical Therapy Assessment Rehab Potential Rehabilitation Potential Good Evaluation Complexity Number of Personal Factors/Comorbidities 3 or More Number of Body Systems Impaired 3 Clinical Presentation at Evaluation Evolving Impairments Impairments Activity Tolerance Balance Gait Strength Other Impairments work tasks Goals 6 Minute Walk Test Impairment 832 ft with 6 MWT Short Term Goal (STG) >1,000 ft with 6 MWT to demonstrate improvements in activity tolerance and gait speed. STG Duration 4 weeks [facility] Goal (LTG) >1,200 ft with 6 MWT to demonstrate improvements in activity tolerance and gait speed. LTG Duration 8 weeks Dynamic Gait Index Impairment 15/24 Short Term Goal (STG) 18/24 or greater with DGI STG Duration 4 weeks [employer] Goal (LTG) 20/24 or greater with DGI to demonstrate decrease in fall risk related to older adults. (scores of 19 or less related to falls in older adults) LTG Duration 8 weeks Weakness Impairment bilateral UE and LE weakness [employer] Goal (LTG) 4+/5 or greater with all UE and LE manual muscle testing to demonstrate improvements with functional mobility, stairs, gait, and work related tasks prior to d/c. LTG Duration 8 weeks Assessment Summary Assessment Pt presents with impaired activity tolerance, gait speed , muscular weakness in the bilateral UE and LEs, and impaired balance (static and dynamic). Overall, pt is at risk for falls with a score of 15/24 on the Dynamic Gait Index (19 or less related to falls in older adults), and the distance traveled during the 6 Minute Walk Test is well below his peers for his age group. The pt demonstrates impaired step length and decreased foot clearance which also increases his risk for falls. Pt is a good candidate for skilled outpatient physical therapy to progress his strength, balance, gait, as well as his activity tolerance to promote improved safety with functional tasks and eventual return to prior level of work tasks to continue earn an income. Physical Therapy Plan Frequency and Duration Frequency of Treatment 2x/Week Duration of Treatment 8 weeks Plan of Care Start Date 10/26/18 Plan of Care End Date 12/21/18 Therapeutic Interventions Therapeutic Interventions Aquatic Therapy Balance Training Gait Training Home Exercise Program Manual Therapy Neuromuscular Re-education Patient/Caregiver Education Self-Care/Home Management Taping Therapeutic Activities Therapeutic Exercises Modalities Cold Pack/Ice Massage Hot Packs Next Visit Focus/Plan Next Note Type Treatment Note Next Visit Plan stepper, Balance board- A/P and lateral, Shuttle leg press , semi-tandem standing (add to HEP); general LE strengthening as amish.
--- NOTE | 2018-11-04 11:31 | PT.OTN ---
Current Diagnoses Other abnormalities of gait and mobility (11/04/18) Other symptoms and signs involving the musculoskeletal system (11/04/18) Physical Therapy Treatment Note PT-OP-A Visit Information Start: 10/27/18 15:53 Freq: Status: Active Protocol: Document 11/04/18 10:33 SA (Rec: 11/04/18 11:31 SA [email or web address]) Out-Patient Physical Therapy Visit Information Visit Information Visit Type Treatment Note Visit Start Time 19:45 Visit Stop Time 10:30 Visit Number 2 Number of SCRAP SHEAR OPERATOR Visits 1 PT-OP-B Current Condition Start: 10/27/18 15:53 Freq: Status: Active Protocol: Document 10/26/18 12:45 RCC (Rec: 10/27/18 16:49 RCC [email or web address]) Current Condition History of Current Condition Onset Date August 2018 Current Complaints weakness, limited ability to walk and work History of Current Condition Pt is a 73 y/o male presenting to physical therapy with a c/ o generalized weakness, impaired ability to ambulate long distances and work. Pt was admitted at [facility] on 09/01/2018 with complications including hematuria and retention. He received PT and OT in the hospital, was discharged to [facility] on 09/06/18, where he continued to do PT. He is now back home, which is a rented room in a local boarding house , and multiple steps to get to his room. 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 He reports becoming fatigued more rapidly with work related tasks and prolonged walking. He reports generalized weakness in the LEs as well as weakness in the UEs with chronic rotator cuff issues ( he gets cortisone injections by Dr. Camara multiple times per year, not a surgical candidate per pt). Treatment Goals Patient/Caregiver Goals continue to work and progress his activity level with work related tasks, improve walking and strength Current Functional Impairments (Reported) Functional Limitations- Mobility/Gait limited to short distance ambulation without device Functional Limitations- Work/School unable to perform usual work duties Personal Factors Other Personal Factors That May Effect osteoporosis, depression, Therapy/Recovery urinary retention; social and economical factors limiting pt 's resources (and limited space for performance of HEP) PT-OP-C Subjective Start: 10/27/18 15:53 Freq: Status: Active Protocol: Document 11/04/18 10:33 SA (Rec: 11/04/18 11:31 SA [email or web address]) OP-PT Subjective Patient Comments Patient Comments Almost forgot I had an appoinment today. Feeling OK. PT-OP-D Balance Start: 10/27/18 15:53 Freq: Status: Active Protocol: Document 10/26/18 12:45 RCC (Rec: 10/27/18 16:49 RCC [email or web address]) Balance Tests Single Limb Standing Single Limb- Right unable Single Limb- Left unable Semi-Tandem Standing Semi-Tandem Standing Balance 2 sec bilaterally PT-OP-E Functional Tests Start: 10/27/18 15:53 Freq: Status: Active Protocol: Document 10/26/18 12:45 RCC (Rec: 10/27/18 16:49 RCC [email or web address]) Functional Tests 6 Minute Walk Test Distance 832 Device Used none Comments O2 sats 96-97%, HR 90-111 bpm Dynamic Gait Index (DGI) Score 15 DGI Impairment Rating 20 to <40% Impaired (Score 15- 19) PT-OP-G Mobility & Gait Start: 10/27/18 15:53 Freq: Status: Active Protocol: Document 10/26/18 12:45 RCC (Rec: 10/27/18 16:49 RCC [email or web address]) OP Gait Assessment Gait Deviations General Gait Pattern Decreased Stride Length Decreased Feet Clearance Flexed Trunk Step-to Gait Comments Gait Comments step-to on the L, step-through on the R; shuffling gait with decreased clearance bilaterally (L worse than R) PT-OP-M Strength Start: 10/27/18 15:53 Freq: Status: Active Protocol: Document 10/26/18 12:45 RCC (Rec: 10/27/18 16:49 RCC [email or web address]) Shoulder Strength Shoulder Manual Muscle Testing Right Flexion 4 Good Extension 4 Good External Rotation 3+ Fair+ Internal Rotation 4 Good Left Flexion 4 Good Abduction (C5) 4 Good External Rotation 3+ Fair+ Internal Rotation 3 Fair Elbow/Forearm Strength Elbow and Forearm Manual Muscle Testing Right Flexion (C6) 4+ Good+ Extension (C7) 4- Good- Left Flexion (C6) 3+ Fair+ Extension (C7) 3 Fair Hip Strength Hip Manual Muscle Testing Right Flexion (L2) 3+ Fair+ Abduction 3 Fair Adduction 4 Good Left Flexion (L2) 3+ Fair+ Abduction 3 Fair Adduction 3+ Fair+ Knee Strength Knee Manual Muscle Testing Right Flexion (S2) 4 Good Extension (L3) 4 Good Left Flexion (S2) 4- Good- Extension (L3) 4 Good PT-OP-Q Treatments Start: 10/27/18 15:53 Freq: Status: Active Protocol: Document 11/04/18 10:33 SA (Rec: 11/04/18 11:31 SA [email or web address]) Cardio Equipment Recumbent Bicycle Duration (Minutes) 5 Resistance 4 Gym Equipment Shuttle Recovery Unilateral Resistance 50# Shuttle Recovery Platform Stable Reps/Time 2 x 10 Bilateral Squat Resistance 87# Shuttle Recovery Platform Stable Reps/Time 2 x 10 Shuttle Balance Balance/stability Details Blue Reps/Duration 4 min Comments Reg stance, NBOS, lateral and ant/posterior weight shifts Therapeutic Exercises Standing Exercises Lunges Side bilateral Reps/Minutes 10 each Comments in parallel bars Heel/toe raises Reps/Minutes 20x each Comments parallel bars hip extension Standing Exercise Name hip extension Side bilateral Resistance yellow band Equipment Used standing bar Reps/Minutes 10x hip abduction Standing Exercise Name hip abduction Side bilateral Resistance yellow band Equipment Used standing bar Reps/Minutes 10x marching Standing Exercise Name marching Side bilateral Equipment Used standing bar Reps/Minutes 10 each Comments Cues to slow down, increase control Neuro Re-Education Treatment Balance Activities Rerssited backwards stepping Equipment Yellow TB Reps/Duration 4 lengths Comments limited UE support, slow controlled movements Resisted lateral stepping Equipment Yellow TB Reps/Duration 4 lengths Comments limited UE support in parallel bars, focus on controlling movement Alternating step ups Equipment Wood block Comments parallel bars, limiting UE support PT-OP-T Assessment and Plan Start: 10/27/18 15:53 Freq: Status: Active Protocol: Document 11/04/18 10:33 SA (Rec: 11/04/18 11:31 SA [email or web address]) Physical Therapy Assessment Assessment Summary Assessment Pt presents with impaired gait and LE muscular weakness. Balance challenges and LE strengthening focus. Physical Therapy Plan Next Visit Focus/Plan Next Note Type Treatment Note Next Visit Plan Continue to progress LE strengthening and balance challenges as tolerated.
--- NOTE | 2018-11-11 11:54 | PT.OTN ---
Current Diagnoses Other abnormalities of gait and mobility (11/11/18) Other symptoms and signs involving the musculoskeletal system (11/11/18) Physical Therapy Treatment Note PT-OP-A Visit Information Start: 10/27/18 15:53 Freq: Status: Active Protocol: Document 11/11/18 11:48 SA (Rec: 11/11/18 11:54 SA [email or web address]) Out-Patient Physical Therapy Visit Information Visit Information Visit Type Treatment Note Visit Start Time 09:00 Visit Stop Time 09:45 Visit Number 3 Number of SPECIAL NEEDS CAREGIVER Visits 2 PT-OP-B Current Condition Start: 10/27/18 15:53 Freq: Status: Active Protocol: Document 10/26/18 12:45 RCC (Rec: 10/27/18 16:49 RCC [email or web address]) Current Condition History of Current Condition Onset Date August 2018 Current Complaints weakness, limited ability to walk and work History of Current Condition Pt is a 73 y/o male presenting to physical therapy with a c/ o generalized weakness, impaired ability to ambulate long distances and work. Pt was admitted at [facility] on 09/01/2018 with complications including hematuria and retention. He received PT and OT in the hospital, was discharged to [facility] on 09/06/18, where he continued to do PT. He is now back home, which is a rented room in a local boarding house , and multiple steps to get to his room. 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 He reports becoming fatigued more rapidly with work related tasks and prolonged walking. He reports generalized weakness in the LEs as well as weakness in the UEs with chronic rotator cuff issues ( he gets cortisone injections by Dr. Camara multiple times per year, not a surgical candidate per pt). Treatment Goals Patient/Caregiver Goals continue to work and progress his activity level with work related tasks, improve walking and strength Current Functional Impairments (Reported) Functional Limitations- Mobility/Gait limited to short distance ambulation without device Functional Limitations- Work/School unable to perform usual work duties Personal Factors Other Personal Factors That May Effect osteoporosis, depression, Therapy/Recovery urinary retention; social and economical factors limiting pt 's resources (and limited space for performance of HEP) PT-OP-C Subjective Start: 10/27/18 15:53 Freq: Status: Active Protocol: Document 11/11/18 11:48 SA (Rec: 11/11/18 11:54 SA [email or web address]) OP-PT Subjective Patient Comments Patient Comments Feeling pretty good, worked yesterday and did OK. No LOBs with working. PT-OP-D Balance Start: 10/27/18 15:53 Freq: Status: Active Protocol: Document 10/26/18 12:45 RCC (Rec: 10/27/18 16:49 RCC [email or web address]) Balance Tests Single Limb Standing Single Limb- Right unable Single Limb- Left unable Semi-Tandem Standing Semi-Tandem Standing Balance 2 sec bilaterally PT-OP-E Functional Tests Start: 10/27/18 15:53 Freq: Status: Active Protocol: Document 10/26/18 12:45 RCC (Rec: 10/27/18 16:49 RCC [email or web address]) Functional Tests 6 Minute Walk Test Distance 832 Device Used none Comments O2 sats 96-97%, HR 90-111 bpm Dynamic Gait Index (DGI) Score 15 DGI Impairment Rating 20 to <40% Impaired (Score 15- 19) PT-OP-G Mobility & Gait Start: 10/27/18 15:53 Freq: Status: Active Protocol: Document 10/26/18 12:45 RCC (Rec: 10/27/18 16:49 RCC [email or web address]) OP Gait Assessment Gait Deviations General Gait Pattern Decreased Stride Length Decreased Feet Clearance Flexed Trunk Step-to Gait Comments Gait Comments step-to on the L, step-through on the R; shuffling gait with decreased clearance bilaterally (L worse than R) PT-OP-M Strength Start: 10/27/18 15:53 Freq: Status: Active Protocol: Document 10/26/18 12:45 RCC (Rec: 10/27/18 16:49 RCC [email or web address]) Shoulder Strength Shoulder Manual Muscle Testing Right Flexion 4 Good Extension 4 Good External Rotation 3+ Fair+ Internal Rotation 4 Good Left Flexion 4 Good Abduction (C5) 4 Good External Rotation 3+ Fair+ Internal Rotation 3 Fair Elbow/Forearm Strength Elbow and Forearm Manual Muscle Testing Right Flexion (C6) 4+ Good+ Extension (C7) 4- Good- Left Flexion (C6) 3+ Fair+ Extension (C7) 3 Fair Hip Strength Hip Manual Muscle Testing Right Flexion (L2) 3+ Fair+ Abduction 3 Fair Adduction 4 Good Left Flexion (L2) 3+ Fair+ Abduction 3 Fair Adduction 3+ Fair+ Knee Strength Knee Manual Muscle Testing Right Flexion (S2) 4 Good Extension (L3) 4 Good Left Flexion (S2) 4- Good- Extension (L3) 4 Good PT-OP-Q Treatments Start: 10/27/18 15:53 Freq: Status: Active Protocol: Document 11/11/18 11:48 SA (Rec: 11/11/18 11:54 SA [email or web address]) Cardio Equipment Recumbent Elliptical (Biodex) Duration (Minutes) 6 Resistance 5 Gym Equipment Shuttle Recovery Unilateral Resistance 50# Shuttle Recovery Platform Stable Reps/Time 2 x 10 Bilateral Squat Resistance 87# Shuttle Recovery Platform Stable Reps/Time 2 x 10 Shuttle Balance Balance/stability Details Blue Reps/Duration 5 min Comments Reg stance, NBOS, lateral and ant/posterior weight shifts Therapeutic Exercises Standing Exercises hip abduction Standing Exercise Name hip abduction Side bilateral Resistance yellow band Equipment Used standing bar Reps/Minutes 10x marching Standing Exercise Name marching Side bilateral Equipment Used standing bar Reps/Minutes 10 each Comments Cues to slow down, increase control Neuro Re-Education Treatment Balance Activities Hurdles step overs Details 6 hurdles Reps/Duration 2 lengths of bar Comments CGA Rerssited backwards stepping Equipment Yellow TB Reps/Duration 4 lengths Comments limited UE support, slow controlled movements Resisted lateral stepping Equipment Yellow TB Reps/Duration 4 lengths Comments limited UE support in parallel bars, focus on controlling movement PT-OP-T Assessment and Plan Start: 10/27/18 15:53 Freq: Status: Active Protocol: Document 11/11/18 11:48 SA (Rec: 11/11/18 11:54 SA [email or web address]) Physical Therapy Assessment Assessment Summary Assessment Pt tolerating strengthening and balance well with no c/o pain or soreness, continue to challenge dynamic balance. Physical Therapy Plan Next Visit Focus/Plan Next Note Type Treatment Note Next Visit Plan Progress dynamic balance and LE strengthening as tolerated.
--- NOTE | 2018-11-18 11:08 | PT.OTN ---
Current Diagnoses Other abnormalities of gait and mobility (11/18/18) Other symptoms and signs involving the musculoskeletal system (11/18/18) Physical Therapy Treatment Note PT-OP-A Visit Information Start: 10/27/18 15:53 Freq: Status: Active Protocol: Document 11/18/18 11:00 SA (Rec: 11/18/18 11:08 SA [email or web address]) Out-Patient Physical Therapy Visit Information Visit Information Visit Start Time 08:55 Visit Stop Time 09:40 Visit Number 4 Number of NURSES SUPERINTENDENT Visits 3 PT-OP-B Current Condition Start: 10/27/18 15:53 Freq: Status: Active Protocol: Document 10/26/18 12:45 RCC (Rec: 10/27/18 16:49 RCC [email or web address]) Current Condition History of Current Condition Onset Date August 2018 Current Complaints weakness, limited ability to walk and work History of Current Condition Pt is a 73 y/o male presenting to physical therapy with a c/ o generalized weakness, impaired ability to ambulate long distances and work. Pt was admitted at [facility] on 09/01/2018 with complications including hematuria and retention. He received PT and OT in the hospital, was discharged to [facility] on 09/06/18, where he continued to do PT. He is now back home, which is a rented room in a local boarding house , and multiple steps to get to his room. 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 He reports becoming fatigued more rapidly with work related tasks and prolonged walking. He reports generalized weakness in the LEs as well as weakness in the UEs with chronic rotator cuff issues ( he gets cortisone injections by Dr. Camara multiple times per year, not a surgical candidate per pt). Treatment Goals Patient/Caregiver Goals continue to work and progress his activity level with work related tasks, improve walking and strength Current Functional Impairments (Reported) Functional Limitations- Mobility/Gait limited to short distance ambulation without device Functional Limitations- Work/School unable to perform usual work duties Personal Factors Other Personal Factors That May Effect osteoporosis, depression, Therapy/Recovery urinary retention; social and economical factors limiting pt 's resources (and limited space for performance of HEP) PT-OP-C Subjective Start: 10/27/18 15:53 Freq: Status: Active Protocol: Document 11/18/18 11:00 SA (Rec: 11/18/18 11:08 SA [email or web address]) OP-PT Subjective Patient Comments Patient Comments Pt reports feeling a little stronger but balance is still a challenge. Patient Reported Progress Improving PT-OP-D Balance Start: 10/27/18 15:53 Freq: Status: Active Protocol: Document 10/26/18 12:45 RCC (Rec: 10/27/18 16:49 RCC [email or web address]) Balance Tests Single Limb Standing Single Limb- Right unable Single Limb- Left unable Semi-Tandem Standing Semi-Tandem Standing Balance 2 sec bilaterally PT-OP-E Functional Tests Start: 10/27/18 15:53 Freq: Status: Active Protocol: Document 10/26/18 12:45 RCC (Rec: 10/27/18 16:49 RCC [email or web address]) Functional Tests 6 Minute Walk Test Distance 832 Device Used none Comments O2 sats 96-97%, HR 90-111 bpm Dynamic Gait Index (DGI) Score 15 DGI Impairment Rating 20 to <40% Impaired (Score 15- 19) PT-OP-G Mobility & Gait Start: 10/27/18 15:53 Freq: Status: Active Protocol: Document 10/26/18 12:45 RCC (Rec: 10/27/18 16:49 RCC [email or web address]) OP Gait Assessment Gait Deviations General Gait Pattern Decreased Stride Length Decreased Feet Clearance Flexed Trunk Step-to Gait Comments Gait Comments step-to on the L, step-through on the R; shuffling gait with decreased clearance bilaterally (L worse than R) PT-OP-M Strength Start: 10/27/18 15:53 Freq: Status: Active Protocol: Document 10/26/18 12:45 RCC (Rec: 10/27/18 16:49 RCC [email or web address]) Shoulder Strength Shoulder Manual Muscle Testing Right Flexion 4 Good Extension 4 Good External Rotation 3+ Fair+ Internal Rotation 4 Good Left Flexion 4 Good Abduction (C5) 4 Good External Rotation 3+ Fair+ Internal Rotation 3 Fair Elbow/Forearm Strength Elbow and Forearm Manual Muscle Testing Right Flexion (C6) 4+ Good+ Extension (C7) 4- Good- Left Flexion (C6) 3+ Fair+ Extension (C7) 3 Fair Hip Strength Hip Manual Muscle Testing Right Flexion (L2) 3+ Fair+ Abduction 3 Fair Adduction 4 Good Left Flexion (L2) 3+ Fair+ Abduction 3 Fair Adduction 3+ Fair+ Knee Strength Knee Manual Muscle Testing Right Flexion (S2) 4 Good Extension (L3) 4 Good Left Flexion (S2) 4- Good- Extension (L3) 4 Good PT-OP-Q Treatments Start: 10/27/18 15:53 Freq: Status: Active Protocol: Document 11/18/18 11:00 SA (Rec: 11/18/18 11:08 SA [email or web address]) Cardio Equipment Recumbent Elliptical (Biodex) Duration (Minutes) 6 Resistance 6 Gym Equipment Shuttle Recovery Unilateral Resistance 50# Shuttle Recovery Platform Stable Reps/Time 2 x 15 Bilateral Squat Resistance 87# Shuttle Recovery Platform Stable Reps/Time 2 x 15 Shuttle Balance Balance/stability Details Red Reps/Duration 5 min Comments Reg stance, NBOS, lateral and ant/posterior weight shifts Therapeutic Exercises Standing Exercises Lunges Standing Exercise Name lunge walks Side bilateral Reps/Minutes 4 lengths of bars hip extension Standing Exercise Name hip extension Side bilateral Resistance yellow band Equipment Used standing bar Reps/Minutes 15x hip abduction Standing Exercise Name hip abduction Side bilateral Resistance yellow band Equipment Used standing bar Reps/Minutes 15x marching Standing Exercise Name marching Side bilateral Equipment Used standing bar Reps/Minutes 10 each Comments Cues to slow down, increase control Neuro Re-Education Treatment Balance Activities Hurdles step overs Details 6 hurdles Reps/Duration 4 lengths Comments CGA Rerssited backwards stepping Equipment Yellow TB Reps/Duration 4 lengths Comments limited UE support, slow controlled movements Resisted lateral stepping Equipment Yellow TB Reps/Duration 4 lengths Comments limited UE support in parallel bars, focus on controlling movement Alternating step ups Equipment Foam pad Comments parallel bars, limiting UE support PT-OP-T Assessment and Plan Start: 10/27/18 15:53 Freq: Status: Active Protocol: Document 11/18/18 11:00 (Rec: 11/18/18 11:08 [email or web address]) Physical Therapy Assessment Assessment Summary Assessment Pt still ambulates with decreases step length and fot elevation. Focused on dynamic balance specifically SLS and high stepping. Physical Therapy Plan Next Visit Focus/Plan Next Note Type Treatment Note Next Visit Plan Continue to progress dynamic balance training and LE strengthening.
--- NOTE | 2018-11-25 08:47 | PT.OTN ---
Current Diagnoses Other abnormalities of gait and mobility (11/25/18) Other symptoms and signs involving the musculoskeletal system (11/25/18) Physical Therapy Treatment Note PT-OP-A Visit Information Start: 10/27/18 15:53 Freq: Status: Active Protocol: Document 11/25/18 08:29 SA (Rec: 11/25/18 08:47 SA [email or web address]) Out-Patient Physical Therapy Visit Information Visit Information Visit Type Treatment Note Visit Start Time 07:30 Visit Stop Time 08:15 Visit Number 5 Number of MANUFACTURING DESIGN ENGINEER Visits 4 PT-OP-B Current Condition Start: 10/27/18 15:53 Freq: Status: Active Protocol: Document 10/26/18 12:45 RCC (Rec: 10/27/18 16:49 RCC [email or web address]) Current Condition History of Current Condition Onset Date August 2018 Current Complaints weakness, limited ability to walk and work History of Current Condition Pt is a 73 y/o male presenting to physical therapy with a c/ o generalized weakness, impaired ability to ambulate long distances and work. Pt was admitted at [facility] on 09/01/2018 with complications including hematuria and retention. He received PT and OT in the hospital, was discharged to [facility] on 09/06/18, where he continued to do PT. He is now back home, which is a rented room in a local boarding house , and multiple steps to get to his room. 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 He reports becoming fatigued more rapidly with work related tasks and prolonged walking. He reports generalized weakness in the LEs as well as weakness in the UEs with chronic rotator cuff issues ( he gets cortisone injections by Dr. Camara multiple times per year, not a surgical candidate per pt). Treatment Goals Patient/Caregiver Goals continue to work and progress his activity level with work related tasks, improve walking and strength Current Functional Impairments (Reported) Functional Limitations- Mobility/Gait limited to short distance ambulation without device Functional Limitations- Work/School unable to perform usual work duties Personal Factors Other Personal Factors That May Effect osteoporosis, depression, Therapy/Recovery urinary retention; social and economical factors limiting pt 's resources (and limited space for performance of HEP) PT-OP-C Subjective Start: 10/27/18 15:53 Freq: Status: Active Protocol: Document 11/25/18 08:29 SA (Rec: 11/25/18 08:47 SA [email or web address]) OP-PT Subjective Patient Comments Patient Comments Pt reports feeling about the same, has not been working outside much lateley. PT-OP-D Balance Start: 10/27/18 15:53 Freq: Status: Active Protocol: Document 10/26/18 12:45 RCC (Rec: 10/27/18 16:49 RCC [email or web address]) Balance Tests Single Limb Standing Single Limb- Right unable Single Limb- Left unable Semi-Tandem Standing Semi-Tandem Standing Balance 2 sec bilaterally PT-OP-E Functional Tests Start: 10/27/18 15:53 Freq: Status: Active Protocol: Document 10/26/18 12:45 RCC (Rec: 10/27/18 16:49 RCC [email or web address]) Functional Tests 6 Minute Walk Test Distance 832 Device Used none Comments O2 sats 96-97%, HR 90-111 bpm Dynamic Gait Index (DGI) Score 15 DGI Impairment Rating 20 to <40% Impaired (Score 15- 19) PT-OP-G Mobility & Gait Start: 10/27/18 15:53 Freq: Status: Active Protocol: Document 10/26/18 12:45 RCC (Rec: 10/27/18 16:49 RCC [email or web address]) OP Gait Assessment Gait Deviations General Gait Pattern Decreased Stride Length Decreased Feet Clearance Flexed Trunk Step-to Gait Comments Gait Comments step-to on the L, step-through on the R; shuffling gait with decreased clearance bilaterally (L worse than R) PT-OP-M Strength Start: 10/27/18 15:53 Freq: Status: Active Protocol: Document 10/26/18 12:45 RCC (Rec: 10/27/18 16:49 RCC [email or web address]) Shoulder Strength Shoulder Manual Muscle Testing Right Flexion 4 Good Extension 4 Good External Rotation 3+ Fair+ Internal Rotation 4 Good Left Flexion 4 Good Abduction (C5) 4 Good External Rotation 3+ Fair+ Internal Rotation 3 Fair Elbow/Forearm Strength Elbow and Forearm Manual Muscle Testing Right Flexion (C6) 4+ Good+ Extension (C7) 4- Good- Left Flexion (C6) 3+ Fair+ Extension (C7) 3 Fair Hip Strength Hip Manual Muscle Testing Right Flexion (L2) 3+ Fair+ Abduction 3 Fair Adduction 4 Good Left Flexion (L2) 3+ Fair+ Abduction 3 Fair Adduction 3+ Fair+ Knee Strength Knee Manual Muscle Testing Right Flexion (S2) 4 Good Extension (L3) 4 Good Left Flexion (S2) 4- Good- Extension (L3) 4 Good PT-OP-Q Treatments Start: 10/27/18 15:53 Freq: Status: Active Protocol: Document 11/25/18 08:29 (Rec: 11/25/18 08:47 SA [email or web address]) Cardio Equipment Recumbent Elliptical (Biodex) Duration (Minutes) 6 Resistance 6 Gym Equipment Shuttle Recovery Unilateral Resistance 50# Shuttle Recovery Platform Stable Reps/Time 2 x 15 Bilateral Squat Resistance 87# Reps/Time 2 x 15 Shuttle Balance Balance/stability Details Red Reps/Duration 5 min Comments Reg stance, NBOS, lateral and ant/posterior weight shifts Therapeutic Exercises Standing Exercises Heel/toe raises Reps/Minutes 20x each Comments parallel bars hip extension Standing Exercise Name hip extension Side bilateral Resistance 2# Equipment Used standing bar Reps/Minutes 2 x 10 hip abduction Standing Exercise Name hip abduction Side bilateral Resistance 2 # Equipment Used standing bar Reps/Minutes 2 x 10 Neuro Re-Education Treatment Balance Activities Resisted lateral stepping Equipment Yellow TB Reps/Duration 4 lengths Comments limited UE support in parallel bars, focus on controlling movement Alternating step ups Equipment Foam pad Comments parallel bars, limiting UE support PT-OP-T Assessment and Plan Start: 10/27/18 15:53 Freq: Status: Active Protocol: Document 11/25/18 08:29 (Rec: 11/25/18 08:47 [email or web address]) Physical Therapy Assessment Goals 6 Minute Walk Test Impairment 758 feet wit 6 MWT today Assessment Summary Assessment Noted decreased step length wit LLE, pt able to correct with cues but reverts back to pattern quickly. Focused on increasing step length and elevation with gait today. Physical Therapy Plan Next Visit Focus/Plan Next Note Type Treatment Note Next Visit Plan Continue to progress balance and LE strengthening, re- assess gait.
--- NOTE | 2018-12-02 10:25 | PT.OTN ---
Current Diagnoses Other abnormalities of gait and mobility (12/02/18) Other symptoms and signs involving the musculoskeletal system (12/02/18) Physical Therapy Treatment Note PT-OP-A Visit Information Start: 10/27/18 15:53 Freq: Status: Active Protocol: Document 12/02/18 10:25 RCC (Rec: 12/02/18 10:31 RCC [email or web address]) Out-Patient Physical Therapy Visit Information Visit Information Visit Type Treatment Note Visit Start Time 09:45 Visit Stop Time 10:25 Total Visit Minutes 40 Visit Number 6 Number of MOTTLE LAY UP OPERATOR Visits 0 Evaluation Information Evaluation Date 10/26/18 PT-OP-B Current Condition Start: 10/27/18 15:53 Freq: Status: Active Protocol: Document 10/26/18 12:45 RCC (Rec: 10/27/18 16:49 RCC [email or web address]) Current Condition History of Current Condition Onset Date August 2018 Current Complaints weakness, limited ability to walk and work History of Current Condition Pt is a 73 y/o male presenting to physical therapy with a c/ o generalized weakness, impaired ability to ambulate long distances and work. Pt was admitted at [facility] on 09/01/2018 with complications including hematuria and retention. He received PT and OT in the hospital, was discharged to [facility] on 09/06/18, where he continued to do PT. He is now back home, which is a rented room in a local boarding house , and multiple steps to get to his room. 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 He reports becoming fatigued more rapidly with work related tasks and prolonged walking. He reports generalized weakness in the LEs as well as weakness in the UEs with chronic rotator cuff issues ( he gets cortisone injections by Dr. Camara multiple times per year, not a surgical candidate per pt). Treatment Goals Patient/Caregiver Goals continue to work and progress his activity level with work related tasks, improve walking and strength Current Functional Impairments (Reported) Functional Limitations- Mobility/Gait limited to short distance ambulation without device Functional Limitations- Work/School unable to perform usual work duties Personal Factors Other Personal Factors That May Effect osteoporosis, depression, Therapy/Recovery urinary retention; social and economical factors limiting pt 's resources (and limited space for performance of HEP) PT-OP-C Subjective Start: 10/27/18 15:53 Freq: Status: Active Protocol: Document 12/02/18 10:25 RCC (Rec: 12/02/18 10:31 RCC [email or web address]) OP-PT Subjective Patient Comments Patient Comments Pt has not been working due to weather. He does admit he is less tired during the day, but has aches and pains all over , I'm old. PT-OP-D Balance Start: 10/27/18 15:53 Freq: Status: Active Protocol: Document 10/26/18 12:45 RCC (Rec: 10/27/18 16:49 RCC [email or web address]) Balance Tests Single Limb Standing Single Limb- Right unable Single Limb- Left unable Semi-Tandem Standing Semi-Tandem Standing Balance 2 sec bilaterally PT-OP-E Functional Tests Start: 10/27/18 15:53 Freq: Status: Active Protocol: Document 10/26/18 12:45 RCC (Rec: 10/27/18 16:49 RCC [email or web address]) Functional Tests 6 Minute Walk Test Distance 832 Device Used none Comments O2 sats 96-97%, HR 90-111 bpm Dynamic Gait Index (DGI) Score 15 DGI Impairment Rating 20 to <40% Impaired (Score 15- 19) PT-OP-G Mobility & Gait Start: 10/27/18 15:53 Freq: Status: Active Protocol: Document 10/26/18 12:45 RCC (Rec: 10/27/18 16:49 RCC [email or web address]) OP Gait Assessment Gait Deviations General Gait Pattern Decreased Stride Length Decreased Feet Clearance Flexed Trunk Step-to Gait Comments Gait Comments step-to on the L, step-through on the R; shuffling gait with decreased clearance bilaterally (L worse than R) PT-OP-M Strength Start: 10/27/18 15:53 Freq: Status: Active Protocol: Document 10/26/18 12:45 RCC (Rec: 10/27/18 16:49 RCC [email or web address]) Shoulder Strength Shoulder Manual Muscle Testing Right Flexion 4 Good Extension 4 Good External Rotation 3+ Fair+ Internal Rotation 4 Good Left Flexion 4 Good Abduction (C5) 4 Good External Rotation 3+ Fair+ Internal Rotation 3 Fair Elbow/Forearm Strength Elbow and Forearm Manual Muscle Testing Right Flexion (C6) 4+ Good+ Extension (C7) 4- Good- Left Flexion (C6) 3+ Fair+ Extension (C7) 3 Fair Hip Strength Hip Manual Muscle Testing Right Flexion (L2) 3+ Fair+ Abduction 3 Fair Adduction 4 Good Left Flexion (L2) 3+ Fair+ Abduction 3 Fair Adduction 3+ Fair+ Knee Strength Knee Manual Muscle Testing Right Flexion (S2) 4 Good Extension (L3) 4 Good Left Flexion (S2) 4- Good- Extension (L3) 4 Good PT-OP-Q Treatments Start: 10/27/18 15:53 Freq: Status: Active Protocol: Document 12/02/18 10:25 RCC (Rec: 12/02/18 10:31 [facility] [email or web address]) Cardio Equipment Recumbent Elliptical (Biodex) Duration (Minutes) 10 Resistance 6 Gym Equipment Shuttle Balance Balance/stability Details Red Reps/Duration 10 min Comments Reg stance, NBOS, lateral and ant/posterior weight shifts Sport Cord forward, backward walking Cord/Resistance white/red Reps/Duration 5 each Neuro Re-Education Treatment Balance Activities stepping on various foam pads in // bars Details stepping/walking on foam pads (various types) & 1/2 balls Reps/Duration 10 laps Comments yoga mat on top of pads and 1/ 2 balls Rerssited backwards stepping Equipment teal TB Reps/Duration 4 lengths Comments limited UE support, slow controlled movements Resisted lateral stepping Equipment teal TB Reps/Duration 4 lengths Comments limited UE support in parallel bars, focus on controlling movement PT-OP-T Assessment and Plan Start: 10/27/18 15:53 Freq: Status: Active Protocol: Document 12/02/18 10:25 RCC (Rec: 12/02/18 10:31 [facility] [email or web address]) Physical Therapy Assessment Assessment Summary Assessment Pt required verbal cuing for step length with resisted sports cord walking forward and backward. He requires UE assistance when walking on simulated uneven terrain. Physical Therapy Plan Frequency and Duration Frequency of Treatment 2x/Week Duration of Treatment 8 weeks Plan of Care Start Date 10/26/18 Plan of Care End Date 12/21/18 Next Visit Focus/Plan Next Note Type Treatment Note Next Visit Plan progress standing balance, gait on uneven surfaces- emphasis with control, alignment, step length.
--- NOTE | 2018-12-09 10:28 | PT.OTN ---
Current Diagnoses Other abnormalities of gait and mobility (12/09/18) Other symptoms and signs involving the musculoskeletal system (12/09/18) Physical Therapy Treatment Note PT-OP-A Visit Information Start: 10/27/18 15:53 Freq: Status: Active Protocol: Document 12/09/18 10:28 RCC (Rec: 12/09/18 10:32 RCC [email or web address]) Out-Patient Physical Therapy Visit Information Visit Information Visit Type Treatment Note Visit Start Time 09:46 Visit Stop Time 10:28 Total Visit Minutes 42 Visit Number 7 Number of BOX CLOSING MACHINE OPERATOR Visits 0 Evaluation Information Evaluation Date 10/26/18 PT-OP-B Current Condition Start: 10/27/18 15:53 Freq: Status: Active Protocol: Document 10/26/18 12:45 RCC (Rec: 10/27/18 16:49 RCC [email or web address]) Current Condition History of Current Condition Onset Date August 2018 Current Complaints weakness, limited ability to walk and work History of Current Condition Pt is a 73 y/o male presenting to physical therapy with a c/ o generalized weakness, impaired ability to ambulate long distances and work. Pt was admitted at [facility] on 09/01/2018 with complications including hematuria and retention. He received PT and OT in the hospital, was discharged to [facility] on 09/06/18, where he continued to do PT. He is now back home, which is a rented room in a local boarding house , and multiple steps to get to his room. 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 He reports becoming fatigued more rapidly with work related tasks and prolonged walking. He reports generalized weakness in the LEs as well as weakness in the UEs with chronic rotator cuff issues ( he gets cortisone injections by Dr. Camara multiple times per year, not a surgical candidate per pt). Treatment Goals Patient/Caregiver Goals continue to work and progress his activity level with work related tasks, improve walking and strength Current Functional Impairments (Reported) Functional Limitations- Mobility/Gait limited to short distance ambulation without device Functional Limitations- Work/School unable to perform usual work duties Personal Factors Other Personal Factors That May Effect osteoporosis, depression, Therapy/Recovery urinary retention; social and economical factors limiting pt 's resources (and limited space for performance of HEP) PT-OP-C Subjective Start: 10/27/18 15:53 Freq: Status: Active Protocol: Document 12/09/18 10:28 RCC (Rec: 12/09/18 10:32 RCC [email or web address]) OP-PT Subjective Patient Comments Patient Comments 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 PT-OP-D Balance Start: 10/27/18 15:53 Freq: Status: Active Protocol: Document 10/26/18 12:45 RCC (Rec: 10/27/18 16:49 RCC [email or web address]) Balance Tests Single Limb Standing Single Limb- Right unable Single Limb- Left unable Semi-Tandem Standing Semi-Tandem Standing Balance 2 sec bilaterally PT-OP-E Functional Tests Start: 10/27/18 15:53 Freq: Status: Active Protocol: Document 10/26/18 12:45 RCC (Rec: 10/27/18 16:49 RCC [email or web address]) Functional Tests 6 Minute Walk Test Distance 832 Device Used none Comments O2 sats 96-97%, HR 90-111 bpm Dynamic Gait Index (DGI) Score 15 DGI Impairment Rating 20 to <40% Impaired (Score 15- 19) PT-OP-G Mobility & Gait Start: 10/27/18 15:53 Freq: Status: Active Protocol: Document 10/26/18 12:45 RCC (Rec: 10/27/18 16:49 RCC [email or web address]) OP Gait Assessment Gait Deviations General Gait Pattern Decreased Stride Length Decreased Feet Clearance Flexed Trunk Step-to Gait Comments Gait Comments step-to on the L, step-through on the R; shuffling gait with decreased clearance bilaterally (L worse than R) PT-OP-M Strength Start: 10/27/18 15:53 Freq: Status: Active Protocol: Document 10/26/18 12:45 RCC (Rec: 10/27/18 16:49 RCC [email or web address]) Shoulder Strength Shoulder Manual Muscle Testing Right Flexion 4 Good Extension 4 Good External Rotation 3+ Fair+ Internal Rotation 4 Good Left Flexion 4 Good Abduction (C5) 4 Good External Rotation 3+ Fair+ Internal Rotation 3 Fair Elbow/Forearm Strength Elbow and Forearm Manual Muscle Testing Right Flexion (C6) 4+ Good+ Extension (C7) 4- Good- Left Flexion (C6) 3+ Fair+ Extension (C7) 3 Fair Hip Strength Hip Manual Muscle Testing Right Flexion (L2) 3+ Fair+ Abduction 3 Fair Adduction 4 Good Left Flexion (L2) 3+ Fair+ Abduction 3 Fair Adduction 3+ Fair+ Knee Strength Knee Manual Muscle Testing Right Flexion (S2) 4 Good Extension (L3) 4 Good Left Flexion (S2) 4- Good- Extension (L3) 4 Good PT-OP-Q Treatments Start: 10/27/18 15:53 Freq: Status: Active Protocol: Document 12/09/18 10:28 RCC (Rec: 12/09/18 10:32 [facility] [email or web address]) Cardio Equipment Recumbent Elliptical (Biodex) Duration (Minutes) 10 Resistance 6 Gym Equipment Shuttle Balance Balance/stability Details Red Reps/Duration 10 min Comments Reg stance, NBOS, lateral and ant/posterior weight shifts Therapeutic Exercises Standing Exercises HS stretch Side bilateral Equipment Used stairs resisted walking Standing Exercise Name fwd, bkwd, lateral walking Side bilateral Reps/Minutes 4 laps each HC stretch Side bilateral Comments CHALINO Gait Training Gait Activity level gait Level of Assistance SBA Surface level, even Distance/Duration 10 min Comments emphasis on step length, widen RASHMI, neutral hip positioning, upright posture Neuro Re-Education Treatment Balance Activities Hurdles step overs Details 3 hurdles Reps/Duration 6 lengths Comments foam pads b/t hurdles PT-OP-T Assessment and Plan Start: 10/27/18 15:53 Freq: Status: Active Protocol: Document 12/09/18 10:28 [facility] (Rec: 12/09/18 10:32 [facility] [email or web address]) Physical Therapy Assessment Assessment Summary Assessment Pt with less hip ER in standing when widening RASHMI, but does require frequent cuing. 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 Physical Therapy Plan Frequency and Duration Frequency of Treatment 2x/Week Duration of Treatment 8 weeks Plan of Care Start Date 10/26/18 Plan of Care End Date 12/21/18 Next Visit Focus/Plan Next Note Type Treatment Note Next Visit Plan gait training, LE strengthening and balance
--- NOTE | 2018-12-16 10:30 | PT.OTN ---
Current Diagnoses Other abnormalities of gait and mobility (12/16/18) Other symptoms and signs involving the musculoskeletal system (12/16/18) Physical Therapy Treatment Note PT-OP-A Visit Information Start: 10/27/18 15:53 Freq: Status: Active Protocol: Document 12/16/18 10:30 RCC (Rec: 12/16/18 10:43 RCC [id number]) Out-Patient Physical Therapy Visit Information Visit Information Visit Type Treatment Note Visit Start Time 09:46 Visit Stop Time 10:30 Total Visit Minutes 44 Visit Number 8 Number of PROGRAMMER ENGINEERING AND SCIENTIFIC Visits 0 Evaluation Information Evaluation Date 10/26/18 PT-OP-B Current Condition Start: 10/27/18 15:53 Freq: Status: Active Protocol: Document 10/26/18 12:45 RCC (Rec: 10/27/18 16:49 RCC [email or web address]) Current Condition History of Current Condition Onset Date August 2018 Current Complaints weakness, limited ability to walk and work History of Current Condition Pt is a 73 y/o male presenting to physical therapy with a c/ o generalized weakness, impaired ability to ambulate long distances and work. Pt was admitted at [facility] on 09/01/2018 with complications including hematuria and retention. He received PT and OT in the hospital, was discharged to [facility] on 09/06/18, where he continued to do PT. He is now back home, which is a rented room in a local boarding house , and multiple steps to get to his room. 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 He reports becoming fatigued more rapidly with work related tasks and prolonged walking. He reports generalized weakness in the LEs as well as weakness in the UEs with chronic rotator cuff issues ( he gets cortisone injections by Dr. Camara multiple times per year, not a surgical candidate per pt). Treatment Goals Patient/Caregiver Goals continue to work and progress his activity level with work related tasks, improve walking and strength Current Functional Impairments (Reported) Functional Limitations- Mobility/Gait limited to short distance ambulation without device Functional Limitations- Work/School unable to perform usual work duties Personal Factors Other Personal Factors That May Effect osteoporosis, depression, Therapy/Recovery urinary retention; social and economical factors limiting pt 's resources (and limited space for performance of HEP) PT-OP-C Subjective Start: 10/27/18 15:53 Freq: Status: Active Protocol: Document 12/16/18 10:30 RCC (Rec: 12/16/18 10:43 RCC [id number]) OP-PT Subjective Patient Comments Patient Comments Pt with no new complaints. He is doing his HEP PT-OP-D Balance Start: 10/27/18 15:53 Freq: Status: Active Protocol: Document 10/26/18 12:45 RCC (Rec: 10/27/18 16:49 RCC [email or web address]) Balance Tests Single Limb Standing Single Limb- Right unable Single Limb- Left unable Semi-Tandem Standing Semi-Tandem Standing Balance 2 sec bilaterally PT-OP-E Functional Tests Start: 10/27/18 15:53 Freq: Status: Active Protocol: Document 10/26/18 12:45 RCC (Rec: 10/27/18 16:49 RCC [email or web address]) Functional Tests 6 Minute Walk Test Distance 832 Device Used none Comments O2 sats 96-97%, HR 90-111 bpm Dynamic Gait Index (DGI) Score 15 DGI Impairment Rating 20 to <40% Impaired (Score 15- 19) PT-OP-G Mobility & Gait Start: 10/27/18 15:53 Freq: Status: Active Protocol: Document 10/26/18 12:45 RCC (Rec: 10/27/18 16:49 RCC [email or web address]) OP Gait Assessment Gait Deviations General Gait Pattern Decreased Stride Length Decreased Feet Clearance Flexed Trunk Step-to Gait Comments Gait Comments step-to on the L, step-through on the R; shuffling gait with decreased clearance bilaterally (L worse than R) PT-OP-M Strength Start: 10/27/18 15:53 Freq: Status: Active Protocol: Document 10/26/18 12:45 RCC (Rec: 10/27/18 16:49 RCC [email or web address]) Shoulder Strength Shoulder Manual Muscle Testing Right Flexion 4 Good Extension 4 Good External Rotation 3+ Fair+ Internal Rotation 4 Good Left Flexion 4 Good Abduction (C5) 4 Good External Rotation 3+ Fair+ Internal Rotation 3 Fair Elbow/Forearm Strength Elbow and Forearm Manual Muscle Testing Right Flexion (C6) 4+ Good+ Extension (C7) 4- Good- Left Flexion (C6) 3+ Fair+ Extension (C7) 3 Fair Hip Strength Hip Manual Muscle Testing Right Flexion (L2) 3+ Fair+ Abduction 3 Fair Adduction 4 Good Left Flexion (L2) 3+ Fair+ Abduction 3 Fair Adduction 3+ Fair+ Knee Strength Knee Manual Muscle Testing Right Flexion (S2) 4 Good Extension (L3) 4 Good Left Flexion (S2) 4- Good- Extension (L3) 4 Good PT-OP-Q Treatments Start: 10/27/18 15:53 Freq: Status: Active Protocol: Document 12/16/18 10:30 RCC (Rec: 12/16/18 10:43 [facility] [id number]) Cardio Equipment Recumbent Elliptical (Biodex) Duration (Minutes) 10 Resistance 6 Gym Equipment Shuttle Balance Balance/stability Details Red Reps/Duration 14 min Comments Reg stance, NBOS, lateral and ant/posterior weight shifts and perturbations Therapeutic Exercises Standing Exercises HS stretch Side bilateral Equipment Used stairs resisted walking Standing Exercise Name fwd, bkwd, lateral walking Side bilateral Resistance L2 Reps/Minutes 4 laps each HC stretch Side bilateral Comments CHALINO Neuro Re-Education Treatment Balance Activities SLS, Tandem standing, semi-tandem stand Surface firm Comments bilateral in // bars PT-OP-T Assessment and Plan Start: 10/27/18 15:53 Freq: Status: Active Protocol: Document 12/16/18 10:30 RCC (Rec: 12/16/18 10:43 [facility] [id number]) Physical Therapy Assessment Assessment Summary Assessment Pt requires cuing during standing exercises, with excessive bilateral hip ER. He had no c/o pain during session, and appears to be working more as he is improving with therapy. Physical Therapy Plan Frequency and Duration Frequency of Treatment 2x/Week Duration of Treatment 8 weeks Plan of Care Start Date 10/26/18 Plan of Care End Date 12/21/18 Next Visit Focus/Plan Next Note Type Progress Note Next Visit Plan review HEP, assess obj measures
--- NOTE | 2018-12-23 09:45 | PT.OTN ---
Current Diagnoses Other abnormalities of gait and mobility (12/23/18) Other symptoms and signs involving the musculoskeletal system (12/23/18) Physical Therapy Treatment Note PT-OP-A Visit Information Start: 10/27/18 15:53 Freq: Status: Active Protocol: Document 12/23/18 09:45 RCC (Rec: 12/24/18 14:33 RCC [email or web address]) Out-Patient Physical Therapy Visit Information Visit Information Visit Type Treatment Note Visit Start Time 09:45 Visit Stop Time 10:25 Total Visit Minutes 40 Visit Number 9 Number of DIRECTOR OF PROPERTY MANAGEMENT Visits 0 Evaluation Information Evaluation Date 10/26/18 PT-OP-B Current Condition Start: 10/27/18 15:53 Freq: Status: Active Protocol: Document 10/26/18 12:45 RCC (Rec: 10/27/18 16:49 RCC [email or web address]) Current Condition History of Current Condition Onset Date August 2018 Current Complaints weakness, limited ability to walk and work History of Current Condition Pt is a 73 y/o male presenting to physical therapy with a c/ o generalized weakness, impaired ability to ambulate long distances and work. Pt was admitted at [facility] on 09/01/2018 with complications including hematuria and retention. He received PT and OT in the hospital, was discharged to [facility] on 09/06/18, where he continued to do PT. He is now back home, which is a rented room in a local boarding house , and multiple steps to get to his room. 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 He reports becoming fatigued more rapidly with work related tasks and prolonged walking. He reports generalized weakness in the LEs as well as weakness in the UEs with chronic rotator cuff issues ( he gets cortisone injections by Dr. Camara multiple times per year, not a surgical candidate per pt). Treatment Goals Patient/Caregiver Goals continue to work and progress his activity level with work related tasks, improve walking and strength Current Functional Impairments (Reported) Functional Limitations- Mobility/Gait limited to short distance ambulation without device Functional Limitations- Work/School unable to perform usual work duties Personal Factors Other Personal Factors That May Effect osteoporosis, depression, Therapy/Recovery urinary retention; social and economical factors limiting pt 's resources (and limited space for performance of HEP) PT-OP-C Subjective Start: 10/27/18 15:53 Freq: Status: Active Protocol: Document 12/23/18 09:45 RCC (Rec: 12/24/18 14:33 RCC [email or web address]) OP-PT Subjective Patient Comments Patient Comments Pt reports compliance with his HEP. He admits to feeling stronger, has been able to do some light work without issues . He feels ready for d/c. Patient Reported Progress Improving PT-OP-D Balance Start: 10/27/18 15:53 Freq: Status: Active Protocol: Document 10/26/18 12:45 RCC (Rec: 10/27/18 16:49 RCC [email or web address]) Balance Tests Single Limb Standing Single Limb- Right unable Single Limb- Left unable Semi-Tandem Standing Semi-Tandem Standing Balance 2 sec bilaterally PT-OP-E Functional Tests Start: 10/27/18 15:53 Freq: Status: Active Protocol: Document 12/23/18 09:45 RCC (Rec: 12/24/18 14:33 RCC [email or web address]) Functional Tests 6 Minute Walk Test Distance 943 Device Used none Dynamic Gait Index (DGI) Score 19 DGI Impairment Rating 20 to <40% Impaired (Score 15- 19) PT-OP-G Mobility & Gait Start: 10/27/18 15:53 Freq: Status: Active Protocol: Document 10/26/18 12:45 RCC (Rec: 10/27/18 16:49 RCC [email or web address]) OP Gait Assessment Gait Deviations General Gait Pattern Decreased Stride Length Decreased Feet Clearance Flexed Trunk Step-to Gait Comments Gait Comments step-to on the L, step-through on the R; shuffling gait with decreased clearance bilaterally (L worse than R) PT-OP-M Strength Start: 10/27/18 15:53 Freq: Status: Active Protocol: Document 12/23/18 09:45 RCC (Rec: 12/24/18 14:33 RCC [email or web address]) Shoulder Strength Shoulder Manual Muscle Testing Right Flexion 4+ Good+ Extension 4 Good External Rotation 4 Good Internal Rotation 5 Normal Left Flexion 4+ Good+ Abduction (C5) 4 Good External Rotation 4 Good Internal Rotation 4 Good Hip Strength Hip Manual Muscle Testing Right Flexion (L2) 4 Good Abduction 3+ Fair+ Adduction 4 Good Left Flexion (L2) 4 Good Abduction 3+ Fair+ Adduction 4 Good Knee Strength Knee Manual Muscle Testing Right Flexion (S2) 5 Normal Extension (L3) 5 Normal Left Flexion (S2) 4+ Good+ Extension (L3) 5 Normal PT-OP-Q Treatments Start: 10/27/18 15:53 Freq: Status: Active Protocol: Document 12/23/18 09:45 RCC (Rec: 12/24/18 14:33 RCC [email or web address]) Therapeutic Exercises Standing Exercises resisted walking Standing Exercise Name fwd, bkwd, lateral walking Side bilateral Resistance L2 Reps/Minutes 4 laps each Lunges Standing Exercise Name lunge walks Side bilateral Reps/Minutes 4 lengths of bars Heel/toe raises Reps/Minutes 20x each Comments parallel bars hip extension Standing Exercise Name hip extension Side bilateral Equipment Used standing bar Reps/Minutes x10 Therapeutic Activity Therapeutic Activity DGI, MMT, 6 MWT Name Objective testing Reps/Minutes 25 min Comments Dynamic Gait Index, 6 Minute Walk Test, LE and UE MMT. PT-OP-T Assessment and Plan Start: 10/27/18 15:53 Freq: Status: Active Protocol: Document 12/23/18 09:45 [facility] (Rec: 12/24/18 14:33 [facility] [email or web address]) Physical Therapy Assessment Goals 6 Minute Walk Test Impairment 832 ft with 6 MWT Short Term Goal (STG) >1,000 ft with 6 MWT to demonstrate improvements in activity tolerance and gait speed. 12/23/18: 934 ft STG Duration 4 weeks Project Construction Manager Goal (LTG) >1,200 ft with 6 MWT to demonstrate improvements in activity tolerance and gait speed. LTG Duration 8 weeks Dynamic Gait Index Impairment 15/24 Short Term Goal (STG) 18/24 or greater with DGI STG Duration Goal met 12/23/18 (19/24) Project Construction Manager Goal (LTG) 20/24 or greater with DGI to demonstrate decrease in fall risk related to older adults. (scores of 19 or less related to falls in older adults) LTG Duration 8 weeks Weakness Impairment bilateral UE and LE weakness Project Construction Manager Goal (LTG) 4+/5 or greater with all UE and LE manual muscle testing to demonstrate improvements with functional mobility, stairs, gait, and work related tasks prior to d/c. 12/23/18: some progress LTG Duration 8 weeks Progress Towards Goals Progress Towards Goals Progressing Toward Goals Slow Progress due to Medical Issues Progress Comments DGI score from to , 6 MWT improved to 934 ft, and strength improving overall. Assessment Summary Assessment Pt improved in overall gait speed and dynamic balance during gait, decreasing his risk for falls as noted by improvements in the 6 Minute Walk Test and the Dynamic Gait Index. Pt is still ambulating with decreased gait speed compared to his peers, and demonstrates weakness throughout the LEs, but has a HEP which he is compliant with and is to continue to improve . Pt is back to work doing light jobs, which he was unable to perform at time of initial evaluation. At this time, pt feels confident in d/ c from physical therapy. Physical Therapy Plan Frequency and Duration Frequency of Treatment 1x/Week Duration of Treatment 1 session Plan of Care Start Date 12/23/18 Plan of Care End Date 12/24/18 Therapeutic Interventions Therapeutic Interventions Aquatic Therapy Balance Training Gait Training Home Exercise Program Manual Therapy Neuromuscular Re-education Patient/Caregiver Education Self-Care/Home Management Taping Therapeutic Activities Therapeutic Exercises Modalities Cold Pack/Ice Massage Hot Packs Discharge Physical Therapy Discharge Reasons Patient Request
== END 2019-01-03 11:41 ==
LOC: PHYS 09:45
PROVIDERS: Family Provider Physician Assistant; PCP Physician Assistant; Visit Provider Physician Assistant
DX: R26.89 Other abnormalities of gait and mobility (principal); R29.898 Other symptoms and signs involving the musculoskeletal system
CPT/HCPCS: 97110; 97112; 97116; 97162; 97530

== ENCOUNTER → 2019-02-22 09:25 | Outpatient (CLI) | payer MEDICARE, MEDICAID, SELFPAY ==
[2018-09-01 16:23] VITALS: BMI 21.0
[2019-02-22 11:47] LABS: Vitamin B12 > 1000 pg/mL (239-931)
== END ==
PROVIDERS: Family Provider Physician Assistant; PCP Physician Assistant; Visit Provider Physician Assistant
DX: E53.8 Deficiency of other specified B group vitamins (principal)
CPT/HCPCS: 36415; 82607

== ENCOUNTER 2019-05-26 09:45 | Outpatient (RCR) | payer MEDICARE, MEDICAID, SELFPAY ==
[2018-09-01 16:23] VITALS: BMI 21.0
--- NOTE | 2019-03-17 13:35 | PT.OIE ---
Current Diagnoses Muscle weakness (generalized) (03/17/19) Other abnormalities of gait and mobility (03/17/19) Unspecified abnormalities of gait and mobility (03/17/19) Past Medical History (Last Reviewed 09/29/18 @ 13:43 by Kimberli Fields MD) Arthritis (Chronic) BPH (benign prostatic hyperplasia) (Chronic) Depression (Chronic) Hyperlipemia (Chronic) Hypertension (Chronic) Osteopenia (Chronic) Osteoporosis (Chronic) Colon polyps (Resolved) Hernia (Resolved) History of alcohol abuse (Resolved 1980) Shoulder pain (Resolved) Urinary retention (Resolved ~04/2017) Past Surgical History (Last Reviewed 09/01/18 @ 17:31 by Stephanie Macias MD) Hx of cystoscopy (Acute 04/2017) Hx of transurethral resection of prostate (Resolved 04/2017) History of cataract removal with insertion of prosthetic lens (02/2016) Status post colectomy (2010) Status post hernia repair (05/2013) Provider Visit Care Team Role Provider Type Katia Frances PA-C Attending Provider Advanced Supervisor Wet End Family Provider Primary Care Provider Specialty: Medical Address: [address] [place] [address] Email: [email or web address] Physical Therapy Initial Evaluation PT-OP-A Visit Information Start: 03/17/19 12:53 Freq: Status: Active Protocol: Document 03/17/19 12:00 (Rec: 03/17/19 13:35 [email or web address]) Out-Patient Physical Therapy Visit Information Visit Information Visit Type Initial Evaluation Visit Start Time 12:00 Visit Stop Time 12:45 Total Visit Minutes 45 Visit Number 1 Number of PROMOTION MANAGER Visits 0 Evaluation Information Evaluation Date 03/17/19 Precautions Precautions high fall risks PT-OP-B Current Condition Start: 03/17/19 12:53 Freq: Status: Active Protocol: Document 03/17/19 12:00 HH (Rec: 03/17/19 13:35 [email or web address]) Current Condition History of Current Condition Onset Date Aug 2018 Current Complaints Decreased balance, generalized weakness, Impaired gait and activity amish, History of Current Condition Pt is a 74 yo male present to physical therapy with a c/o decreased balance, generalized weakness and impaired ability to amb for long distance and work. Pt was admitted at [facility] on 09/01/2018 with complications including Hematuria and retention. He transferred to [facility] on 09/06/18 for 2x days and d/c back home , which is [facility] room [facility] with multiple steps to get to his room. Pt also received outpatient PT here for 2 months from Sep to Nov. Pt reports his amb ability and balance did improve after d/c and has been doing HEP every night. However, he noticed his balance started decreased and worsening L foot drag during amb recently but denies falls. He also c/o his L LE is getting weaker as well, along with UEs with chronic rotator cuff issues. Pt currently still amb at home and community without using SPC mostly, but he still using it sometimes if needed. Treatment Goals Patient/Caregiver Goals 1. to improve his overall walking distance and LE strength 2. to improve standing endurance for more than 20 mins Current Functional Impairments (Reported) Functional Limitations- Mobility/Gait limited to short distance ambulation ambulation without SPC decreased gait speed especially with turns step to stair negotiation with railings. Personal Factors Other Personal Factors That May Effect OP Therapy/Recovery depression urinary retention hernia PT-OP-C Subjective Start: 03/17/19 12:53 Freq: Status: Active Protocol: Document 03/17/19 12:00 HH (Rec: 03/17/19 13:35 [email or web address]) OP-PT Subjective Patient Comments Patient Comments My balance and strength are not very good at this point. Patient Questionnaires Dizziness Handicap Inventory DHI Score 22 DHI Functional Impairment 20 to 39% Impaired (Score 20- 39) PT-OP-D Balance Start: 03/17/19 12:53 Freq: Status: Active Protocol: Document 03/17/19 12:00 HH (Rec: 03/17/19 13:35 [email or web address]) Balance Tests Wilcox Balance Test Wilcox Balance Test Score 46 Wilcox Impairment Rating 1 to 19% Impaired (Score 45-55 ) PT-OP-E Functional Tests Start: 03/17/19 12:53 Freq: Status: Active Protocol: Document 03/17/19 12:00 HH (Rec: 03/17/19 13:35 [email or web address]) Functional Tests 6 Minute Walk Test Distance 705 Device Used none Comments decreased stride length as distance increase Dynamic Gait Index (DGI) Score 14 DGI Impairment Rating 40 to <60% Impaired (Score 10- 14) PT-OP-G Mobility & Gait Start: 03/17/19 12:53 Freq: Status: Active Protocol: Document 03/17/19 12:00 HH (Rec: 03/17/19 13:35 [email or web address]) OP Gait Assessment Gait Gait Assistance Required: Independent Distance (Feet) 705 Assistive Devices Assistive Device None Gait Deviations General Gait Pattern Decreased Stride Length Decreased Feet Clearance Wide Based Gait Factors Limiting Gait Function Factors Limiting Gait Function Decreased Activity Tolerance Decreased Strength Limited Range of Motion Poor Balance Poor Safety Awareness Stair Climbing Evaluation Devices Stair Climbing Assistive Devices Right Railing Technique/Endurance Stair Climbing Direction Ascend and Descend Stair Climbing Technique Step to Step PT-OP-J Posture/Palpation/Skin Start: 03/17/19 12:53 Freq: Status: Active Protocol: Document 03/17/19 12:00 HH (Rec: 03/17/19 13:35 [email or web address]) Posture Evaluation Position Standing Evaluation View Lateral Head/C-Spine Posture Forward Head T-Spine Posture Increased Kyphosis Shoulder Posture (L) Rounded (R) Rounded PT-OP-M Strength Start: 03/17/19 12:53 Freq: Status: Active Protocol: Document 03/17/19 12:00 HH (Rec: 03/17/19 13:35 [email or web address]) Hip Strength Hip Manual Muscle Testing Left Flexion (L2) 4- Good- Extension (S1) 4 Good Abduction 4- Good- Adduction 4 Good Right Flexion (L2) 4+ Good+ Extension (S1) 4+ Good+ Abduction 4+ Good+ Adduction 4+ Good+ Knee Strength Knee Manual Muscle Testing Right Flexion (S2) 4+ Good+ Extension (L3) 4+ Good+ Left Flexion (S2) 3+ Fair+ Extension (L3) 4 Good Ankle/Foot Strength Ankle and Foot Manual Muscle Testing Right Dorsiflexion (L4) 4+ Good+ Plantarflexion (S1) 4+ Good+ Left Dorsiflexion (L4) 4- Good- Plantarflexion (S1) 4- Good- PT-OP-T Assessment and Plan Start: 03/17/19 12:53 Freq: Status: Active Protocol: Document 03/17/19 12:00 HH (Rec: 03/17/19 13:35 [email or web address]) Physical Therapy Assessment Rehab Potential Rehabilitation Potential Good Evaluation Complexity Number of Personal Factors/Comorbidities 3 or More Number of Body Systems Impaired 3 Clinical Presentation at Evaluation Evolving Impairments Impairments Activity Tolerance Balance Functional Activities Functional Mobility Gait Posture Strength Transfers Other Concerns Fall Risk high Barriers to Rehabilitation OP depression urinary retention hernia Goals 6 Minute Walk Test Impairment 705 ft with 6MWT [facility] Goal (LTG) >1000 ft with 6 MWT to improve in activity tolerance and gait speed LTG Duration 12 weeks Dynamic Gait Index Impairment 14/24 [facility] Goal (LTG) Pt will improve his DGI score to 20/24 to reduce his fall risks LTG Duration 12 weeks Weakness Impairment Bilateral UE LE weakness [facility]ci Goal (LTG) To improve pt's overall UE and LE strength to 4+/5 to improve functional mobility such as walking, stair climbing prior to d/c LTG Duration 12 weeks Assessment Summary Assessment Pt is mod complexity with impaired balance, gait, generalized weakness for both UEs and LEs (L>R) and impaired activity tolerance. Upon assessment, Pt has fall risks with WILCOX score 46/55 and DGI 14/24 and distance traveled with 6MWT is 705ft. His balance score and walking distance are below his last PT eval and overall well below his peers for his age group. During gait analysis and balance test, pt demonstrates absence of reciprocal armswings and decreased and uneven stride length possibly due to his LLE weakness. He also presents decreased balance/ gait speed during turns, multitasking and negotiating obstacles (step over/ around). Pt will benefit from skilled physcial therapy to address aforementioned presentations to progress his overall strength , balance and gait efficiency as well as his activity tolerance to improve his safety with functional tasks. Physical Therapy Plan Frequency and Duration Frequency of Treatment 2x/Week Duration of Treatment 12 Plan of Care Start Date 03/17/19 Plan of Care End Date 06/16/19 Therapeutic Interventions Therapeutic Interventions Aquatic Therapy Balance Training Gait Training Home Exercise Program Neuromuscular Re-education Patient/Caregiver Education Self-Care/Home Management Therapeutic Activities Therapeutic Exercises Next Visit Focus/Plan Next Note Type Treatment Note Next Visit Plan stepper , balance training , can add head turns/ cog task simultaneously leg press, SLS, overall LE strengthening
--- NOTE | 2019-03-17 13:35 | PT.OPPOC ---
Current Diagnoses Muscle weakness (generalized) (03/17/19) Other abnormalities of gait and mobility (03/17/19) Unspecified abnormalities of gait and mobility (03/17/19) Provider Visit Care Team Role Provider Type Katia Frances PA-C Attending Provider Advanced Therapist'S Assistant Family Provider Primary Care Provider Specialty: Medical Address: [address] [place] [address], [id number] Email: [email or web address] Plan Of Care PT-OP-T Assessment and Plan Start: 03/17/19 12:53 Freq: Status: Active Protocol: Document 03/17/19 12:00 HH (Rec: 03/17/19 13:35 HH [email or web address]) Physical Therapy Assessment Rehab Potential Rehabilitation Potential Good Evaluation Complexity Number of Personal Factors/Comorbidities 3 or More Number of Body Systems Impaired 3 Clinical Presentation at Evaluation Evolving Impairments Impairments Activity Tolerance Balance Functional Activities Functional Mobility Gait Posture Strength Transfers Other Concerns Fall Risk high Barriers to Rehabilitation OP depression urinary retention hernia Goals 6 Minute Walk Test Impairment 705 ft with 6MWT Assisted Goal (LTG) >1000 ft with 6 MWT to improve in activity tolerance and gait speed LTG Duration 12 weeks Dynamic Gait Index Impairment 14/24 Cosmetic Sales Advisor Goal (LTG) Pt will improve his DGI score to 20/24 to reduce his fall risks LTG Duration 12 weeks Weakness Impairment Bilateral UE LE weakness Cosmetic Sales Advisor Goal (LTG) To improve pt's overall UE and LE strength to 4+/5 to improve functional mobility such as walking, stair climbing prior to d/c LTG Duration 12 weeks Assessment Summary Assessment Pt is mod complexity with impaired balance, gait, generalized weakness for both UEs and LEs (L>R) and impaired activity tolerance. Upon assessment, Pt has fall risks with WILCOX score 46/55 and DGI 14/24 and distance traveled with 6MWT is 705ft. His balance score and walking distance are below his last PT eval and overall well below his peers for his age group. During gait analysis and balance test, pt demonstrates absence of reciprocal armswings and decreased and uneven stride length possibly due to his LLE weakness. He also presents decreased balance/ gait speed during turns, multitasking and negotiating obstacles (step over/ around). Pt will benefit from skilled physcial therapy to address aforementioned presentations to progress his overall strength , balance and gait efficiency as well as his activity tolerance to improve his safety with functional tasks. Physical Therapy Plan Frequency and Duration Frequency of Treatment 2x/Week Duration of Treatment 12 Plan of Care Start Date 03/17/19 Plan of Care End Date 06/16/19 Therapeutic Interventions Therapeutic Interventions Aquatic Therapy Balance Training Gait Training Home Exercise Program Neuromuscular Re-education Patient/Caregiver Education Self-Care/Home Management Therapeutic Activities Therapeutic Exercises Next Visit Focus/Plan Next Note Type Treatment Note Next Visit Plan stepper , balance training , can add head turns/ cog task simultaneously leg press, SLS, overall LE strengthening Plan of Care Dates Plan of Care Start Date 03/17/19 Plan of Care End Date 06/16/19 Please Sign and Return: I have reviewed this Plan of Care and certify that the skilled therapy services above are required to meet the patient?s needs. Physician Signature Date Printed Name and Credentials Clinical Instructor Signature Printed Name and Credentials
--- NOTE | 2019-03-21 09:59 | PT.OTN ---
Current Diagnoses Muscle weakness (generalized) (03/21/19) Other abnormalities of gait and mobility (03/21/19) Unspecified abnormalities of gait and mobility (03/21/19) Physical Therapy Treatment Note PT-OP-A Visit Information Start: 03/17/19 12:53 Freq: Status: Active Protocol: Document 03/21/19 09:00 GGD (Rec: 03/21/19 09:59 GGD [email or web address]) Out-Patient Physical Therapy Visit Information Visit Information Visit Type Treatment Note Visit Start Time 09:00 Visit Stop Time 09:40 Total Visit Minutes 40 Visit Number 2 Number of COOKER CLEANER Visits 1 Evaluation Information Evaluation Date 03/17/19 PT-OP-B Current Condition Start: 03/17/19 12:53 Freq: Status: Active Protocol: Document 03/17/19 12:00 HH (Rec: 03/17/19 13:35 HH [email or web address]) Current Condition History of Current Condition Onset Date Aug 2018 Current Complaints Decreased balance, generalized weakness, Impaired gait and activity amish, History of Current Condition Pt is a 74 yo male present to physical therapy with a c/o decreased balance, generalized weakness and impaired ability to amb for long distance and work. Pt was admitted at [facility] on 09/01/2018 with complications including Hematuria and retention. He transferred to [facility] on 09/06/18 for 2x days and d/c back home , which is rented room in a local [facility] house with multiple steps to get to his room. Pt also received outpatient PT here for 2 months from Sep to Nov. Pt reports his amb ability and balance did improve after d/c and has been doing HEP every night. However, he noticed his balance started decreased and worsening L foot drag during amb recently but denies falls. He also c/o his L LE is getting weaker as well, along with UEs with chronic rotator cuff issues. Pt currently still amb at home and community without using SPC mostly, but he still using it sometimes if needed. Treatment Goals Patient/Caregiver Goals 1. to improve his overall walking distance and LE strength 2. to improve standing endurance for more than 20 mins Current Functional Impairments (Reported) Functional Limitations- Mobility/Gait limited to short distance ambulation ambulation without SPC decreased gait speed especially with turns step to stair negotiation with railings. Personal Factors Other Personal Factors That May Effect OP Therapy/Recovery depression urinary retention hernia PT-OP-C Subjective Start: 03/17/19 12:53 Freq: Status: Active Protocol: Document 03/21/19 09:00 GGD (Rec: 03/21/19 09:59 GGD [email or web address]) OP-PT Subjective Patient Comments Patient Comments Pt states he is very busy and tired today. PT-OP-D Balance Start: 03/17/19 12:53 Freq: Status: Active Protocol: Document 03/17/19 12:00 HH (Rec: 03/17/19 13:35 HH [email or web address]) Balance Tests Mercado Balance Test Mercado Balance Test Score 46 Mercado Impairment Rating 1 to 19% Impaired (Score 45-55 ) PT-OP-E Functional Tests Start: 03/17/19 12:53 Freq: Status: Active Protocol: Document 03/17/19 12:00 HH (Rec: 03/17/19 13:35 HH [email or web address]) Functional Tests 6 Minute Walk Test Distance 705 Device Used none Comments decreased stride length as distance increase Dynamic Gait Index (DGI) Score 14 DGI Impairment Rating 40 to <60% Impaired (Score 10- 14) PT-OP-G Mobility & Gait Start: 03/17/19 12:53 Freq: Status: Active Protocol: Document 03/17/19 12:00 HH (Rec: 03/17/19 13:35 HH [email or web address]) OP Gait Assessment Gait Gait Assistance Required: Independent Distance (Feet) 705 Assistive Devices Assistive Device None Gait Deviations General Gait Pattern Decreased Stride Length Decreased Feet Clearance Wide Based Gait Factors Limiting Gait Function Factors Limiting Gait Function Decreased Activity Tolerance Decreased Strength Limited Range of Motion Poor Balance Poor Safety Awareness Stair Climbing Evaluation Devices Stair Climbing Assistive Devices Right Railing Technique/Endurance Stair Climbing Direction Ascend and Descend Stair Climbing Technique Step to Step PT-OP-J Posture/Palpation/Skin Start: 03/17/19 12:53 Freq: Status: Active Protocol: Document 03/17/19 12:00 HH (Rec: 03/17/19 13:35 HH [email or web address]) Posture Evaluation Position Standing Evaluation View Lateral Head/C-Spine Posture Forward Head T-Spine Posture Increased Kyphosis Shoulder Posture (L) Rounded (R) Rounded PT-OP-M Strength Start: 03/17/19 12:53 Freq: Status: Active Protocol: Document 03/17/19 12:00 HH (Rec: 03/17/19 13:35 [email or web address]) Hip Strength Hip Manual Muscle Testing Left Flexion (L2) 4- Good- Extension (S1) 4 Good Abduction 4- Good- Adduction 4 Good Right Flexion (L2) 4+ Good+ Extension (S1) 4+ Good+ Abduction 4+ Good+ Adduction 4+ Good+ Knee Strength Knee Manual Muscle Testing Right Flexion (S2) 4+ Good+ Extension (L3) 4+ Good+ Left Flexion (S2) 3+ Fair+ Extension (L3) 4 Good Ankle/Foot Strength Ankle and Foot Manual Muscle Testing Right Dorsiflexion (L4) 4+ Good+ Plantarflexion (S1) 4+ Good+ Left Dorsiflexion (L4) 4- Good- Plantarflexion (S1) 4- Good- PT-OP-Q Treatments Start: 03/17/19 12:53 Freq: Status: Active Protocol: Document 03/21/19 09:00 GGD (Rec: 03/21/19 09:59 GGD [email or web address]) Cardio Equipment Recumbent Elliptical ([email or web address]) Duration (Minutes) 8 Resistance 2 Other cuse for pace Gym Equipment Shuttle Recovery Unilateral Resistance 37# Shuttle Recovery Platform Stable Reps/Time 15 Bilateral Squat Resistance 62# Shuttle Recovery Platform Stable Reps/Time 2 x 15 Therapeutic Exercises Standing Exercises resisted walking Standing Exercise Name fwd, bkwd, lateral walking Side bilateral Resistance yellow Reps/Minutes 4 laps each Comments // bars HC stretch Side bilateral Comments CHALINO Heel/toe raises Reps/Minutes 20x each Comments parallel bars hip abduction Standing Exercise Name hip abduction Side bilateral Equipment Used standing bar Reps/Minutes x 10 Neuro Re-Education Treatment Balance Activities Heel toe gait Surface firm Reps/Duration 3 laps Comments // bars SLS, Tandem standing, semi-tandem stand Surface firm Comments bilateral in // bars, PT-OP-T Assessment and Plan Start: 03/17/19 12:53 Freq: Status: Active Protocol: Document 03/21/19 09:00 GGD (Rec: 03/21/19 09:59 GGD [email or web address]) Physical Therapy Assessment Assessment Summary Assessment PT need cues for full ROM, pace and technique with strengthening exercises. He was challanged with balance activities. He needed UE support for SLS balance. He did have LOB with tandom stance with trial of head turns. Physical Therapy Plan Frequency and Duration Frequency of Treatment 2x/Week Duration of Treatment 12 Plan of Care Start Date 03/17/19 Plan of Care End Date 06/16/19 Next Visit Focus/Plan Next Note Type Treatment Note Next Visit Plan balance training , can add head turns, LE strengthening
--- NOTE | 2019-04-04 15:44 | PT.OTN ---
Current Diagnoses Muscle weakness (generalized) (04/04/19) Other abnormalities of gait and mobility (04/04/19) Unspecified abnormalities of gait and mobility (04/04/19) Physical Therapy Treatment Note PT-OP-A Visit Information Start: 03/17/19 12:53 Freq: Status: Active Protocol: Document 04/04/19 15:34 SA (Rec: 04/04/19 15:44 SA [email or web address]) Out-Patient Physical Therapy Visit Information Visit Information Visit Type Treatment Note Visit Start Time 13:00 Visit Stop Time 13:45 Total Visit Minutes 45 Visit Number 3 Number of MANAGER HEAVY DUTY Visits 2 PT-OP-B Current Condition Start: 03/17/19 12:53 Freq: Status: Active Protocol: Document 03/17/19 12:00 HH (Rec: 03/17/19 13:35 HH [email or web address]) Current Condition History of Current Condition Onset Date Aug 2018 Current Complaints Decreased balance, generalized weakness, Impaired gait and activity amish, History of Current Condition Pt is a 74 yo male present to physical therapy with a c/o decreased balance, generalized weakness and impaired ability to amb for long distance and work. Pt was admitted at [facility] on 09/01/2018 with complications including Hematuria and retention. He transferred to [facility] on 09/06/18 for 2x days and d/c back home , which is rented room in a local [facility] house with multiple steps to get to his room. Pt also received outpatient PT here for 2 months from Sep to Nov. Pt reports his amb ability and balance did improve after d/c and has been doing HEP every night. However, he noticed his balance started decreased and worsening L foot drag during amb recently but denies falls. He also c/o his L LE is getting weaker as well, along with UEs with chronic rotator cuff issues. Pt currently still amb at home and community without using SPC mostly, but he still using it sometimes if needed. Treatment Goals Patient/Caregiver Goals 1. to improve his overall walking distance and LE strength 2. to improve standing endurance for more than 20 mins Current Functional Impairments (Reported) Functional Limitations- Mobility/Gait limited to short distance ambulation ambulation without SPC decreased gait speed especially with turns step to stair negotiation with railings. Personal Factors Other Personal Factors That May Effect OP Therapy/Recovery depression urinary retention hernia PT-OP-C Subjective Start: 03/17/19 12:53 Freq: Status: Active Protocol: Document 04/04/19 15:34 SA (Rec: 04/04/19 15:44 SA [email or web address]) OP-PT Subjective Patient Comments Patient Comments Pt reports walking is difficult today probably because he is tired. PT-OP-D Balance Start: 03/17/19 12:53 Freq: Status: Active Protocol: Document 03/17/19 12:00 HH (Rec: 03/17/19 13:35 HH [email or web address]) Balance Tests Mercado Balance Test Mercado Balance Test Score 46 Mercado Impairment Rating 1 to 19% Impaired (Score 45-55 ) PT-OP-E Functional Tests Start: 03/17/19 12:53 Freq: Status: Active Protocol: Document 03/17/19 12:00 HH (Rec: 03/17/19 13:35 HH [email or web address]) Functional Tests 6 Minute Walk Test Distance 705 Device Used none Comments decreased stride length as distance increase Dynamic Gait Index (DGI) Score 14 DGI Impairment Rating 40 to <60% Impaired (Score 10- 14) PT-OP-G Mobility & Gait Start: 03/17/19 12:53 Freq: Status: Active Protocol: Document 03/17/19 12:00 HH (Rec: 03/17/19 13:35 HH [email or web address]) OP Gait Assessment Gait Gait Assistance Required: Independent Distance (Feet) 705 Assistive Devices Assistive Device None Gait Deviations General Gait Pattern Decreased Stride Length Decreased Feet Clearance Wide Based Gait Factors Limiting Gait Function Factors Limiting Gait Function Decreased Activity Tolerance Decreased Strength Limited Range of Motion Poor Balance Poor Safety Awareness Stair Climbing Evaluation Devices Stair Climbing Assistive Devices Right Railing Technique/Endurance Stair Climbing Direction Ascend and Descend Stair Climbing Technique Step to Step PT-OP-J Posture/Palpation/Skin Start: 03/17/19 12:53 Freq: Status: Active Protocol: Document 03/17/19 12:00 HH (Rec: 03/17/19 13:35 HH [email or web address]) Posture Evaluation Position Standing Evaluation View Lateral Head/C-Spine Posture Forward Head T-Spine Posture Increased Kyphosis Shoulder Posture (L) Rounded (R) Rounded PT-OP-M Strength Start: 03/17/19 12:53 Freq: Status: Active Protocol: Document 03/17/19 12:00 HH (Rec: 03/17/19 13:35 HH [email or web address]) Hip Strength Hip Manual Muscle Testing Left Flexion (L2) 4- Good- Extension (S1) 4 Good Abduction 4- Good- Adduction 4 Good Right Flexion (L2) 4+ Good+ Extension (S1) 4+ Good+ Abduction 4+ Good+ Adduction 4+ Good+ Knee Strength Knee Manual Muscle Testing Right Flexion (S2) 4+ Good+ Extension (L3) 4+ Good+ Left Flexion (S2) 3+ Fair+ Extension (L3) 4 Good Ankle/Foot Strength Ankle and Foot Manual Muscle Testing Right Dorsiflexion (L4) 4+ Good+ Plantarflexion (S1) 4+ Good+ Left Dorsiflexion (L4) 4- Good- Plantarflexion (S1) 4- Good- PT-OP-Q Treatments Start: 03/17/19 12:53 Freq: Status: Active Protocol: Document 04/04/19 15:34 SA (Rec: 04/04/19 15:44 SA [email or web address]) Cardio Equipment Recumbent Elliptical ([employer]) Duration (Minutes) 8 Resistance 3 Gym Equipment Shuttle Recovery Unilateral Resistance 37# Shuttle Recovery Platform Stable Reps/Time 2 x 10 Bilateral Squat Resistance 62# Shuttle Recovery Platform Stable Reps/Time 2 x 15 Shuttle Balance Balance/stability Details Red chain Reps/Duration 5 min Comments NBOS, tandem stance, head turns and attempted UE movements Therapeutic Exercises Standing Exercises resisted walking Standing Exercise Name fwd, bkwd, lateral walking Side bilateral Resistance yellow Reps/Minutes 4 laps each Comments bar Heel/toe raises Reps/Minutes 20x each Comments parallel bars hip extension Side bilateral Resistance 2# Reps/Minutes 2 x 8 hip abduction Side bilateral Equipment Used 2# Reps/Minutes 2 x 8 Neuro Re-Education Treatment Balance Activities Heel toe gait Surface frim Reps/Duration 3 laps Comments at bar SLS, Tandem standing, semi-tandem stand Surface firm Comments bilateral in // bars, Hurdles step overs Surface level Equipment hurdles Reps/Duration 6 lengths of bar Alternating step ups Details 4 inch step Reps/Duration 15 x Comments at bar PT-OP-T Assessment and Plan Start: 03/17/19 12:53 Freq: Status: Active Protocol: Document 04/04/19 15:34 SA (Rec: 04/04/19 15:44 SA [email or web address]) Physical Therapy Assessment Assessment Summary Assessment Pt needs verbal/tactile cues for hip exercise positioning and pacing in general, fatigues rapidly. Balance progressions were challenging. Physical Therapy Plan Next Visit Focus/Plan Next Note Type Treatment Note Next Visit Plan balance training , can add head turns, LE strengthening
--- NOTE | 2019-05-02 12:01 | PT.OTN ---
Current Diagnoses Muscle weakness (generalized) (05/02/19) Other abnormalities of gait and mobility (05/02/19) Unspecified abnormalities of gait and mobility (05/02/19) Physical Therapy Treatment Note PT-OP-A Visit Information Start: 03/17/19 12:53 Freq: Status: Active Protocol: Document 05/02/19 10:30 HH (Rec: 05/02/19 12:00 HH [email or web address]) Out-Patient Physical Therapy Visit Information Visit Information Visit Type Treatment Note Visit Note Pt has not been sessn since 04/04 Visit Start Time 10:30 Visit Stop Time 11:15 Total Visit Minutes 45 Visit Number 4 Number of ANIMAL CONTROL SUPERVISOR Visits 0 PT-OP-B Current Condition Start: 03/17/19 12:53 Freq: Status: Active Protocol: Document 03/17/19 12:00 HH (Rec: 03/17/19 13:35 HH [email or web address]) Current Condition History of Current Condition Onset Date Aug 2018 Current Complaints Decreased balance, generalized weakness, Impaired gait and activity amish, History of Current Condition Pt is a 74 yo male present to physical therapy with a c/o decreased balance, generalized weakness and impaired ability to amb for long distance and work. Pt was admitted at [facility] on 09/01/2018 with complications including Hematuria and retention. He transferred to [facility] on 09/06/18 for 2x days and d/c back home , which is rented room in a local [facility] house with multiple steps to get to his room. Pt also received outpatient PT here for 2 months from Sep to Nov. Pt reports his amb ability and balance did improve after d/c and has been doing HEP every night. However, he noticed his balance started decreased and worsening L foot drag during amb recently but denies falls. He also c/o his L LE is getting weaker as well, along with UEs with chronic rotator cuff issues. Pt currently still amb at home and community without using SPC mostly, but he still using it sometimes if needed. Treatment Goals Patient/Caregiver Goals 1. to improve his overall walking distance and LE strength 2. to improve standing endurance for more than 20 mins Current Functional Impairments (Reported) Functional Limitations- Mobility/Gait limited to short distance ambulation ambulation without SPC decreased gait speed especially with turns step to stair negotiation with railings. Personal Factors Other Personal Factors That May Effect OP Therapy/Recovery depression urinary retention hernia PT-OP-C Subjective Start: 03/17/19 12:53 Freq: Status: Active Protocol: Document 05/02/19 10:30 HH (Rec: 05/02/19 12:00 HH [email or web address]) OP-PT Subjective Patient Comments Patient Comments It's been the same but im still doing my HEP everyday with squats and hip extension. PT-OP-D Balance Start: 03/17/19 12:53 Freq: Status: Active Protocol: Document 03/17/19 12:00 HH (Rec: 03/17/19 13:35 HH [email or web address]) Balance Tests Mercado Balance Test Mercado Balance Test Score 46 Mercado Impairment Rating 1 to 19% Impaired (Score 45-55 ) PT-OP-E Functional Tests Start: 03/17/19 12:53 Freq: Status: Active Protocol: Document 03/17/19 12:00 HH (Rec: 03/17/19 13:35 [email or web address]) Functional Tests 6 Minute Walk Test Distance 705 Device Used none Comments decreased stride length as distance increase Dynamic Gait Index (DGI) Score 14 DGI Impairment Rating 40 to <60% Impaired (Score 10- 14) PT-OP-G Mobility & Gait Start: 03/17/19 12:53 Freq: Status: Active Protocol: Document 03/17/19 12:00 HH (Rec: 03/17/19 13:35 [email or web address]) OP Gait Assessment Gait Gait Assistance Required: Independent Distance (Feet) 705 Assistive Devices Assistive Device None Gait Deviations General Gait Pattern Decreased Stride Length Decreased Feet Clearance Wide Based Gait Factors Limiting Gait Function Factors Limiting Gait Function Decreased Activity Tolerance Decreased Strength Limited Range of Motion Poor Balance Poor Safety Awareness Stair Climbing Evaluation Devices Stair Climbing Assistive Devices Right Railing Technique/Endurance Stair Climbing Direction Ascend and Descend Stair Climbing Technique Step to Step PT-OP-J Posture/Palpation/Skin Start: 03/17/19 12:53 Freq: Status: Active Protocol: Document 03/17/19 12:00 HH (Rec: 03/17/19 13:35 HH [email or web address]) Posture Evaluation Position Standing Evaluation View Lateral Head/C-Spine Posture Forward Head T-Spine Posture Increased Kyphosis Shoulder Posture (L) Rounded (R) Rounded PT-OP-M Strength Start: 03/17/19 12:53 Freq: Status: Active Protocol: Document 03/17/19 12:00 HH (Rec: 03/17/19 13:35 HH [email or web address]) Hip Strength Hip Manual Muscle Testing Left Flexion (L2) 4- Good- Extension (S1) 4 Good Abduction 4- Good- Adduction 4 Good Right Flexion (L2) 4+ Good+ Extension (S1) 4+ Good+ Abduction 4+ Good+ Adduction 4+ Good+ Knee Strength Knee Manual Muscle Testing Right Flexion (S2) 4+ Good+ Extension (L3) 4+ Good+ Left Flexion (S2) 3+ Fair+ Extension (L3) 4 Good Ankle/Foot Strength Ankle and Foot Manual Muscle Testing Right Dorsiflexion (L4) 4+ Good+ Plantarflexion (S1) 4+ Good+ Left Dorsiflexion (L4) 4- Good- Plantarflexion (S1) 4- Good- PT-OP-Q Treatments Start: 03/17/19 12:53 Freq: Status: Active Protocol: Document 05/02/19 10:30 HH (Rec: 05/02/19 12:00 [email or web address]) Cardio Equipment Recumbent Stepper ([employer]) Duration (Minutes) 5 Resistance 5 Recumbent Bicycle Duration (Minutes) 4 Resistance 5 Therapeutic Exercises Standing Exercises 5' box step up Side bilateral Equipment Used 5' box , //bar as needed Reps/Minutes 20 x 2 Comments SBA marching Side bilateral Equipment Used //bar as needed Reps/Minutes 5 laps Comments cues for high knee Neuro Re-Education Treatment Balance Activities walking with head turns Equipment //bar Reps/Duration 2 laps Comments gaze stabilization on PT's finger tip tandem Surface firm Equipment //bar as needed Reps/Duration 5 laps Heel toe gait Surface firm Reps/Duration 4 laps Comments at bar SLS, Tandem standing, semi-tandem stand Surface firm Reps/Duration 10 s x5 Comments bilateral in // bars, Hurdles step overs Surface level Equipment hurdles Reps/Duration 6 lengths of bar Comments 6 laps without UE support Alternating step ups Details 4 inch step Reps/Duration 15 x Comments at bar PT-OP-T Assessment and Plan Start: 03/17/19 12:53 Freq: Status: Active Protocol: Document 05/02/19 10:30 HH (Rec: 05/02/19 12:00 [email or web address]) Physical Therapy Assessment Goals 6 Minute Walk Test Impairment 705 ft with 6MWT [facility] Goal (LTG) >1000 ft with 6 MWT to improve in activity tolerance and gait speed LTG Duration 12 weeks Dynamic Gait Index Impairment 14/24 Image Archivist Goal (LTG) Pt will improve his DGI score to 20/24 to reduce his fall risks LTG Duration 12 weeks Weakness Impairment Bilateral UE LE weakness Image Archivist Goal (LTG) To improve pt's overall UE and LE strength to 4+/5 to improve functional mobility such as walking, stair climbing prior to d/c LTG Duration 12 weeks Assessment Summary Assessment Pt requireds constant cues to facilitate foot clearance during amb but he was able to perform linwood walking without UE support fairly easy. Pt also have difficulty multi- task during amb. New HEP with SLS, tandem walk, marching in place Physical Therapy Plan Next Visit Focus/Plan Next Note Type Treatment Note Next Visit Plan reassess heP cont balance training with ostacle based. overall LE strengthening
--- NOTE | 2019-05-04 11:15 | PT.OTN ---
Current Diagnoses Muscle weakness (generalized) (05/04/19) Other abnormalities of gait and mobility (05/04/19) Unspecified abnormalities of gait and mobility (05/04/19) Physical Therapy Treatment Note PT-OP-A Visit Information Start: 03/17/19 12:53 Freq: Status: Active Protocol: Document 05/04/19 11:15 RCC (Rec: 05/04/19 14:05 RCC [email or web address]) Out-Patient Physical Therapy Visit Information Visit Information Visit Type Treatment Note Visit Start Time 11:15 Visit Stop Time 11:59 Total Visit Minutes 44 Visit Number 5 Number of FLAT MACHINE CUTTER Visits 0 Evaluation Information Evaluation Date 03/17/19 Precautions Precautions high fall risks PT-OP-B Current Condition Start: 03/17/19 12:53 Freq: Status: Active Protocol: Document 03/17/19 12:00 HH (Rec: 03/17/19 13:35 HH [email or web address]) Current Condition History of Current Condition Onset Date Aug 2018 Current Complaints Decreased balance, generalized weakness, Impaired gait and activity amish, History of Current Condition Pt is a 74 yo male present to physical therapy with a c/o decreased balance, generalized weakness and impaired ability to amb for long distance and work. Pt was admitted at [facility] on 09/01/2018 with complications including Hematuria and retention. He transferred to [facility] on 09/06/18 for 2x days and d/c back home , [facility] with multiple steps to get to his room. Pt also received outpatient PT here for 2 months from Sep to Nov. Pt reports his amb ability and balance did improve after d/c and has been doing HEP every night. However, he noticed his balance started decreased and worsening L foot drag during amb recently but denies falls. He also c/o his L LE is getting weaker as well, along with UEs with chronic rotator cuff issues. Pt currently still amb at home and community without using SPC mostly, but he still using it sometimes if needed. Treatment Goals Patient/Caregiver Goals 1. to improve his overall walking distance and LE strength 2. to improve standing endurance for more than 20 mins Current Functional Impairments (Reported) Functional Limitations- Mobility/Gait limited to short distance ambulation ambulation without SPC decreased gait speed especially with turns step to stair negotiation with railings. Personal Factors Other Personal Factors That May Effect OP Therapy/Recovery depression urinary retention hernia PT-OP-C Subjective Start: 03/17/19 12:53 Freq: Status: Active Protocol: Document 05/04/19 11:15 RCC (Rec: 05/04/19 14:05 RCC [email or web address]) OP-PT Subjective Patient Comments Patient Comments Pt is doing his HEP. He has noticed that he is having more difficulty working the past couple of months due to LE weakness. PT-OP-D Balance Start: 03/17/19 12:53 Freq: Status: Active Protocol: Document 03/17/19 12:00 HH (Rec: 03/17/19 13:35 HH [email or web address]) Balance Tests Mercado Balance Test Mercado Balance Test Score 46 Mercado Impairment Rating 1 to 19% Impaired (Score 45-55 ) PT-OP-E Functional Tests Start: 03/17/19 12:53 Freq: Status: Active Protocol: Document 03/17/19 12:00 HH (Rec: 03/17/19 13:35 HH [email or web address]) Functional Tests 6 Minute Walk Test Distance 705 Device Used none Comments decreased stride length as distance increase Dynamic Gait Index (DGI) Score 14 DGI Impairment Rating 40 to <60% Impaired (Score 10- 14) PT-OP-G Mobility & Gait Start: 03/17/19 12:53 Freq: Status: Active Protocol: Document 03/17/19 12:00 HH (Rec: 03/17/19 13:35 HH [email or web address]) OP Gait Assessment Gait Gait Assistance Required: Independent Distance (Feet) 705 Assistive Devices Assistive Device None Gait Deviations General Gait Pattern Decreased Stride Length Decreased Feet Clearance Wide Based Gait Factors Limiting Gait Function Factors Limiting Gait Function Decreased Activity Tolerance Decreased Strength Limited Range of Motion Poor Balance Poor Safety Awareness Stair Climbing Evaluation Devices Stair Climbing Assistive Devices Right Railing Technique/Endurance Stair Climbing Direction Ascend and Descend Stair Climbing Technique Step to Step PT-OP-J Posture/Palpation/Skin Start: 03/17/19 12:53 Freq: Status: Active Protocol: Document 03/17/19 12:00 HH (Rec: 03/17/19 13:35 HH [email or web address]) Posture Evaluation Position Standing Evaluation View Lateral Head/C-Spine Posture Forward Head T-Spine Posture Increased Kyphosis Shoulder Posture (L) Rounded (R) Rounded PT-OP-M Strength Start: 03/17/19 12:53 Freq: Status: Active Protocol: Document 03/17/19 12:00 HH (Rec: 03/17/19 13:35 HH [email or web address]) Hip Strength Hip Manual Muscle Testing Left Flexion (L2) 4- Good- Extension (S1) 4 Good Abduction 4- Good- Adduction 4 Good Right Flexion (L2) 4+ Good+ Extension (S1) 4+ Good+ Abduction 4+ Good+ Adduction 4+ Good+ Knee Strength Knee Manual Muscle Testing Right Flexion (S2) 4+ Good+ Extension (L3) 4+ Good+ Left Flexion (S2) 3+ Fair+ Extension (L3) 4 Good Ankle/Foot Strength Ankle and Foot Manual Muscle Testing Right Dorsiflexion (L4) 4+ Good+ Plantarflexion (S1) 4+ Good+ Left Dorsiflexion (L4) 4- Good- Plantarflexion (S1) 4- Good- PT-OP-Q Treatments Start: 03/17/19 12:53 Freq: Status: Active Protocol: Document 05/04/19 11:15 RCC (Rec: 05/04/19 14:05 RCC [email or web address]) Cardio Equipment Recumbent Stepper (Sci-Fit) Duration (Minutes) 10 Resistance 4 Gym Equipment Shuttle Recovery Unilateral Resistance 50# Shuttle Recovery Platform Stable Reps/Time 2 x 10 Bilateral Squat Resistance 62# Shuttle Recovery Platform Stable Reps/Time 2 x 15 Shuttle Balance Balance/stability Details Red chain Reps/Duration 8 min Comments NBOS, tandem stance, head turns and attempted UE movements Therapeutic Exercises Sitting Exercises ankle DF Side bilateral Resistance L1 band Reps/Minutes 2x15 Standing Exercises 5' box step up Side bilateral Resistance 2 lb AW Equipment Used 5 inch box , //bar as needed Reps/Minutes 20 x 2 Comments SBA marching Side bilateral Resistance 2 lb AW Equipment Used //bar as needed Reps/Minutes 6 laps Comments cues for high knee Neuro Re-Education Treatment Balance Activities walking with head turns Equipment //bar Reps/Duration 2 laps Comments gaze stabilization on PT's finger tip Heel toe gait Surface firm Reps/Duration 4 laps Comments at bar PT-OP-T Assessment and Plan Start: 03/17/19 12:53 Freq: Status: Active Protocol: Document 05/04/19 11:15 RCC (Rec: 05/04/19 14:05 RCC [email or web address]) Physical Therapy Assessment Assessment Summary Assessment Pt fatigues more rapidly when performing ankle DF on the L vs the R, requires cuing to continue to perform throughout the entire range of motion. Physical Therapy Plan Frequency and Duration Frequency of Treatment 2x/Week Duration of Treatment 12 weeks Plan of Care Start Date 03/17/19 Plan of Care End Date 06/16/19 Next Visit Focus/Plan Next Note Type Treatment Note Next Visit Plan uneven gait training, LE strengthening
--- NOTE | 2019-05-10 11:15 | PT.OTN ---
Current Diagnoses Muscle weakness (generalized) (05/10/19) Other abnormalities of gait and mobility (05/10/19) Unspecified abnormalities of gait and mobility (05/10/19) Physical Therapy Treatment Note PT-OP-A Visit Information Start: 03/17/19 12:53 Freq: Status: Active Protocol: Document 05/10/19 11:15 RCC (Rec: 05/11/19 17:03 RCC [email or web address]) Out-Patient Physical Therapy Visit Information Visit Information Visit Type Treatment Note Visit Start Time 11:15 Visit Stop Time 12:00 Total Visit Minutes 45 Visit Number 6 Number of QUALITY ASSURANCE PRACTICE MANAGER Visits 0 Evaluation Information Evaluation Date 03/17/19 Precautions Precautions high fall risks PT-OP-B Current Condition Start: 03/17/19 12:53 Freq: Status: Active Protocol: Document 03/17/19 12:00 HH (Rec: 03/17/19 13:35 HH [email or web address]) Current Condition History of Current Condition Onset Date Aug 2018 Current Complaints Decreased balance, generalized weakness, Impaired gait and activity amish, History of Current Condition Pt is a 74 yo male present to physical therapy with a c/o decreased balance, generalized weakness and impaired ability to amb for long distance and work. Pt was admitted at [facility] on 09/01/2018 with complications including Hematuria and retention. He transferred to [facility] on 09/06/18 for 2x days and d/c back home , which is rented room in a local [facility] house with multiple steps to get to his room. Pt also received outpatient PT here for 2 months from Sep to Nov. Pt reports his amb ability and balance did improve after d/c and has been doing HEP every night. However, he noticed his balance started decreased and worsening L foot drag during amb recently but denies falls. He also c/o his L LE is getting weaker as well, along with UEs with chronic rotator cuff issues. Pt currently still amb at home and community without using SPC mostly, but he still using it sometimes if needed. Treatment Goals Patient/Caregiver Goals 1. to improve his overall walking distance and LE strength 2. to improve standing endurance for more than 20 mins Current Functional Impairments (Reported) Functional Limitations- Mobility/Gait limited to short distance ambulation ambulation without SPC decreased gait speed especially with turns step to stair negotiation with railings. Personal Factors Other Personal Factors That May Effect OP Therapy/Recovery depression urinary retention hernia PT-OP-C Subjective Start: 03/17/19 12:53 Freq: Status: Active Protocol: Document 05/10/19 11:15 RCC (Rec: 05/11/19 17:03 RCC [email or web address]) OP-PT Subjective Patient Comments Patient Comments Pt states that he has been working more this past week with a couple of jobs. PT-OP-D Balance Start: 03/17/19 12:53 Freq: Status: Active Protocol: Document 03/17/19 12:00 HH (Rec: 03/17/19 13:35 HH [email or web address]) Balance Tests Mercado Balance Test Mercado Balance Test Score 46 Mercado Impairment Rating 1 to 19% Impaired (Score 45-55 ) PT-OP-E Functional Tests Start: 03/17/19 12:53 Freq: Status: Active Protocol: Document 03/17/19 12:00 HH (Rec: 03/17/19 13:35 HH [email or web address]) Functional Tests 6 Minute Walk Test Distance 705 Device Used none Comments decreased stride length as distance increase Dynamic Gait Index (DGI) Score 14 DGI Impairment Rating 40 to <60% Impaired (Score 10- 14) PT-OP-G Mobility & Gait Start: 03/17/19 12:53 Freq: Status: Active Protocol: Document 03/17/19 12:00 HH (Rec: 03/17/19 13:35 HH [email or web address]) OP Gait Assessment Gait Gait Assistance Required: Independent Distance (Feet) 705 Assistive Devices Assistive Device None Gait Deviations General Gait Pattern Decreased Stride Length Decreased Feet Clearance Wide Based Gait Factors Limiting Gait Function Factors Limiting Gait Function Decreased Activity Tolerance Decreased Strength Limited Range of Motion Poor Balance Poor Safety Awareness Stair Climbing Evaluation Devices Stair Climbing Assistive Devices Right Railing Technique/Endurance Stair Climbing Direction Ascend and Descend Stair Climbing Technique Step to Step PT-OP-J Posture/Palpation/Skin Start: 03/17/19 12:53 Freq: Status: Active Protocol: Document 03/17/19 12:00 HH (Rec: 03/17/19 13:35 HH [email or web address]) Posture Evaluation Position Standing Evaluation View Lateral Head/C-Spine Posture Forward Head T-Spine Posture Increased Kyphosis Shoulder Posture (L) Rounded (R) Rounded PT-OP-M Strength Start: 03/17/19 12:53 Freq: Status: Active Protocol: Document 03/17/19 12:00 HH (Rec: 03/17/19 13:35 HH [email or web address]) Hip Strength Hip Manual Muscle Testing Left Flexion (L2) 4- Good- Extension (S1) 4 Good Abduction 4- Good- Adduction 4 Good Right Flexion (L2) 4+ Good+ Extension (S1) 4+ Good+ Abduction 4+ Good+ Adduction 4+ Good+ Knee Strength Knee Manual Muscle Testing Right Flexion (S2) 4+ Good+ Extension (L3) 4+ Good+ Left Flexion (S2) 3+ Fair+ Extension (L3) 4 Good Ankle/Foot Strength Ankle and Foot Manual Muscle Testing Right Dorsiflexion (L4) 4+ Good+ Plantarflexion (S1) 4+ Good+ Left Dorsiflexion (L4) 4- Good- Plantarflexion (S1) 4- Good- PT-OP-Q Treatments Start: 03/17/19 12:53 Freq: Status: Active Protocol: Document 05/10/19 11:15 RCC (Rec: 05/11/19 17:03 RCC [email or web address]) Cardio Equipment Recumbent Stepper (Sci-Fit) Duration (Minutes) 10 Resistance 4 Gym Equipment Shuttle Recovery Unilateral Resistance 62# Shuttle Recovery Platform Stable Reps/Time 2 x 10 Bilateral Squat Resistance 75# Shuttle Recovery Platform Stable Reps/Time 2 x 15 Shuttle Balance Balance/stability Details Red chain Reps/Duration 8 min Comments NBOS, tandem stance, head turns and attempted UE movements Therapeutic Exercises Sitting Exercises ankle DF Side bilateral Resistance L1 band Reps/Minutes 2x15 Standing Exercises HS stretch Side bilateral Equipment Used stairs HC stretch Side bilateral Comments CHALINO Heel/toe raises Reps/Minutes 20x each Comments parallel bars Neuro Re-Education Treatment Balance Activities Heel toe gait Surface firm Reps/Duration 4 laps Comments at bar PT-OP-T Assessment and Plan Start: 03/17/19 12:53 Freq: Status: Active Protocol: Document 05/10/19 11:15 RCC (Rec: 05/11/19 17:03 RCC [email or web address]) Physical Therapy Assessment Assessment Summary Assessment Pt continues to fatigue more rapidly on the L vs the R, and increased WB on the RLE with standing balance training. Physical Therapy Plan Frequency and Duration Frequency of Treatment 2x/Week Duration of Treatment 12 weeks Plan of Care Start Date 03/17/19 Plan of Care End Date 06/16/19 Next Visit Focus/Plan Next Note Type Treatment Note Next Visit Plan uneven gait training, LE strengthening
--- NOTE | 2019-05-12 11:15 | PT.OTN ---
Current Diagnoses Muscle weakness (generalized) (05/12/19) Other abnormalities of gait and mobility (05/12/19) Unspecified abnormalities of gait and mobility (05/12/19) Physical Therapy Treatment Note PT-OP-A Visit Information Start: 03/17/19 12:53 Freq: Status: Active Protocol: Document 05/12/19 11:15 RCC (Rec: 05/12/19 12:17 RCC [id number]) Out-Patient Physical Therapy Visit Information Visit Information Visit Type Treatment Note Visit Start Time 11:15 Visit Stop Time 11:55 Total Visit Minutes 40 Visit Number 7 Number of KOSHER BUTCHER Visits 0 Evaluation Information Evaluation Date 03/17/19 Precautions Precautions high fall risks PT-OP-B Current Condition Start: 03/17/19 12:53 Freq: Status: Active Protocol: Document 03/17/19 12:00 HH (Rec: 03/17/19 13:35 HH [email or web address]) Current Condition History of Current Condition Onset Date Aug 2018 Current Complaints Decreased balance, generalized weakness, Impaired gait and activity amish, History of Current Condition Pt is a 74 yo male present to physical therapy with a c/o decreased balance, generalized weakness and impaired ability to amb for long distance and work. Pt was admitted at [facility] on 09/01/2018 with complications including Hematuria and retention. He transferred to [facility] on 09/06/18 for 2x days and d/c back home , which is rented room in a local [facility] house with multiple steps to get to his room. Pt also received outpatient PT here for 2 months from Sep to Nov. Pt reports his amb ability and balance did improve after d/c and has been doing HEP every night. However, he noticed his balance started decreased and worsening L foot drag during amb recently but denies falls. He also c/o his L LE is getting weaker as well, along with UEs with chronic rotator cuff issues. Pt currently still amb at home and community without using SPC mostly, but he still using it sometimes if needed. Treatment Goals Patient/Caregiver Goals 1. to improve his overall walking distance and LE strength 2. to improve standing endurance for more than 20 mins Current Functional Impairments (Reported) Functional Limitations- Mobility/Gait limited to short distance ambulation ambulation without SPC decreased gait speed especially with turns step to stair negotiation with railings. 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 PT-OP-D Balance Start: 03/17/19 12:53 Freq: Status: Active Protocol: Document 03/17/19 12:00 HH (Rec: 03/17/19 13:35 HH [email or web address]) Balance Tests Mercado Balance Test Mercado Balance Test Score 46 Mercado Impairment Rating 1 to 19% Impaired (Score 45-55 ) PT-OP-E Functional Tests Start: 03/17/19 12:53 Freq: Status: Active Protocol: Document 03/17/19 12:00 HH (Rec: 03/17/19 13:35 HH [email or web address]) Functional Tests 6 Minute Walk Test Distance 705 Device Used none Comments decreased stride length as distance increase Dynamic Gait Index (DGI) Score 14 DGI Impairment Rating 40 to <60% Impaired (Score 10- 14) PT-OP-G Mobility & Gait Start: 03/17/19 12:53 Freq: Status: Active Protocol: Document 03/17/19 12:00 HH (Rec: 03/17/19 13:35 HH [email or web address]) OP Gait Assessment Gait Gait Assistance Required: Independent Distance (Feet) 705 Assistive Devices Assistive Device None Gait Deviations General Gait Pattern Decreased Stride Length Decreased Feet Clearance Wide Based Gait Factors Limiting Gait Function Factors Limiting Gait Function Decreased Activity Tolerance Decreased Strength Limited Range of Motion Poor Balance Poor Safety Awareness Stair Climbing Evaluation Devices Stair Climbing Assistive Devices Right Railing Technique/Endurance Stair Climbing Direction Ascend and Descend Stair Climbing Technique Step to Step PT-OP-J Posture/Palpation/Skin Start: 03/17/19 12:53 Freq: Status: Active Protocol: Document 03/17/19 12:00 HH (Rec: 03/17/19 13:35 HH [email or web address]) Posture Evaluation Position Standing Evaluation View Lateral Head/C-Spine Posture Forward Head T-Spine Posture Increased Kyphosis Shoulder Posture (L) Rounded (R) Rounded PT-OP-M Strength Start: 03/17/19 12:53 Freq: Status: Active Protocol: Document 03/17/19 12:00 HH (Rec: 03/17/19 13:35 HH [email or web address]) Hip Strength Hip Manual Muscle Testing Left Flexion (L2) 4- Good- Extension (S1) 4 Good Abduction 4- Good- Adduction 4 Good Right Flexion (L2) 4+ Good+ Extension (S1) 4+ Good+ Abduction 4+ Good+ Adduction 4+ Good+ Knee Strength Knee Manual Muscle Testing Right Flexion (S2) 4+ Good+ Extension (L3) 4+ Good+ Left Flexion (S2) 3+ Fair+ Extension (L3) 4 Good Ankle/Foot Strength Ankle and Foot Manual Muscle Testing Right Dorsiflexion (L4) 4+ Good+ Plantarflexion (S1) 4+ Good+ Left Dorsiflexion (L4) 4- Good- Plantarflexion (S1) 4- Good- PT-OP-Q Treatments Start: 03/17/19 12:53 Freq: Status: Active Protocol: Document 05/12/19 11:15 RCC (Rec: 05/12/19 12:17 RCC [id number]) Cardio Equipment Recumbent Stepper (Sci-Fit) Duration (Minutes) 10 Resistance 4 Gym Equipment Shuttle Recovery Unilateral Resistance 62# Shuttle Recovery Platform Stable Reps/Time 2 x 10 Bilateral Squat Resistance 75# Shuttle Recovery Platform Stable Reps/Time 2 x 15 Shuttle Balance Balance/stability Details Red chain Reps/Duration 12 min Comments NBOS, tandem stance, head turns and attempted UE movements Therapeutic Exercises Standing Exercises HS stretch Side bilateral Equipment Used stairs HC stretch Side bilateral Comments CHALINO Lunges Standing Exercise Name lunge walks Side bilateral Reps/Minutes 4 lengths of bars Neuro Re-Education Treatment Balance Activities Heel toe gait Surface firm Reps/Duration 4 laps Comments at bar SLS, Tandem standing, semi-tandem stand Surface firm Reps/Duration 10 s x5 Comments bilateral in // bars, Other Activities uneven gait Reps/Duration 6 laps Comments gait with foam pads and yoga mat on top PT-OP-T Assessment and Plan Start: 03/17/19 12:53 Freq: Status: Active Protocol: Document 05/12/19 11:15 RCC (Rec: 05/12/19 12:17 RCC [id number]) Physical Therapy Assessment Assessment Summary Assessment Pt tolerated uneven gait with occasional use of UEs on // bars, but no significant loss of balance. Physical Therapy Plan Frequency and Duration Frequency of Treatment 2x/Week Duration of Treatment 12 weeks Plan of Care Start Date 03/17/19 Plan of Care End Date 06/16/19 Next Visit Focus/Plan Next Note Type Treatment Note Next Visit Plan cont LE stability and balance as tolerated.
--- NOTE | 2019-05-17 15:00 | PT.OTN ---
Current Diagnoses Muscle weakness (generalized) (05/17/19) Other abnormalities of gait and mobility (05/17/19) Unspecified abnormalities of gait and mobility (05/17/19) Physical Therapy Treatment Note PT-OP-A Visit Information Start: 03/17/19 12:53 Freq: Status: Active Protocol: Document 05/17/19 14:53 SA (Rec: 05/17/19 15:00 SA [email or web address]) Out-Patient Physical Therapy Visit Information Visit Information Visit Type Treatment Note Visit Start Time 11:15 Visit Stop Time 12:00 Visit Number 8 Number of RETAIL SALES TEAMMATE Visits 1 PT-OP-B Current Condition Start: 03/17/19 12:53 Freq: Status: Active Protocol: Document 03/17/19 12:00 HH (Rec: 03/17/19 13:35 HH [email or web address]) Current Condition History of Current Condition Onset Date Aug 2018 Current Complaints Decreased balance, generalized weakness, Impaired gait and activity amish, History of Current Condition Pt is a 74 yo male present to physical therapy with a c/o decreased balance, generalized weakness and impaired ability to amb for long distance and work. Pt was admitted at [facility] on 09/01/2018 with complications including Hematuria and retention. He transferred to [facility] on 09/06/18 for 2x days and d/c back home , which is rented room in a local [facility] house with multiple steps to get to his room. Pt also received outpatient PT here for 2 months from Sep to Nov. Pt reports his amb ability and balance did improve after d/c and has been doing HEP every night. However, he noticed his balance started decreased and worsening L foot drag during amb recently but denies falls. He also c/o his L LE is getting weaker as well, along with UEs with chronic rotator cuff issues. Pt currently still amb at home and community without using SPC mostly, but he still using it sometimes if needed. Treatment Goals Patient/Caregiver Goals 1. to improve his overall walking distance and LE strength 2. to improve standing endurance for more than 20 mins Current Functional Impairments (Reported) Functional Limitations- Mobility/Gait limited to short distance ambulation ambulation without SPC decreased gait speed especially with turns step to stair negotiation with railings. Personal Factors Other Personal Factors That May Effect OP Therapy/Recovery depression urinary retention hernia PT-OP-C Subjective Start: 03/17/19 12:53 Freq: Status: Active Protocol: Document 05/17/19 14:53 SA (Rec: 05/17/19 15:00 SA [email or web address]) OP-PT Subjective Patient Comments Patient Comments Pt states his poor balance is biggest complaint. PT-OP-D Balance Start: 03/17/19 12:53 Freq: Status: Active Protocol: Document 03/17/19 12:00 HH (Rec: 03/17/19 13:35 HH [email or web address]) Balance Tests Mercado Balance Test Mercado Balance Test Score 46 Mercado Impairment Rating 1 to 19% Impaired (Score 45-55 ) PT-OP-E Functional Tests Start: 03/17/19 12:53 Freq: Status: Active Protocol: Document 03/17/19 12:00 HH (Rec: 03/17/19 13:35 HH [email or web address]) Functional Tests 6 Minute Walk Test Distance 705 Device Used none Comments decreased stride length as distance increase Dynamic Gait Index (DGI) Score 14 DGI Impairment Rating 40 to <60% Impaired (Score 10- 14) PT-OP-G Mobility & Gait Start: 03/17/19 12:53 Freq: Status: Active Protocol: Document 03/17/19 12:00 HH (Rec: 03/17/19 13:35 HH [email or web address]) OP Gait Assessment Gait Gait Assistance Required: Independent Distance (Feet) 705 Assistive Devices Assistive Device None Gait Deviations General Gait Pattern Decreased Stride Length Decreased Feet Clearance Wide Based Gait Factors Limiting Gait Function Factors Limiting Gait Function Decreased Activity Tolerance Decreased Strength Limited Range of Motion Poor Balance Poor Safety Awareness Stair Climbing Evaluation Devices Stair Climbing Assistive Devices Right Railing Technique/Endurance Stair Climbing Direction Ascend and Descend Stair Climbing Technique Step to Step PT-OP-J Posture/Palpation/Skin Start: 03/17/19 12:53 Freq: Status: Active Protocol: Document 03/17/19 12:00 HH (Rec: 03/17/19 13:35 HH [email or web address]) Posture Evaluation Position Standing Evaluation View Lateral Head/C-Spine Posture Forward Head T-Spine Posture Increased Kyphosis Shoulder Posture (L) Rounded (R) Rounded PT-OP-M Strength Start: 03/17/19 12:53 Freq: Status: Active Protocol: Document 03/17/19 12:00 HH (Rec: 03/17/19 13:35 HH [email or web address]) Hip Strength Hip Manual Muscle Testing Left Flexion (L2) 4- Good- Extension (S1) 4 Good Abduction 4- Good- Adduction 4 Good Right Flexion (L2) 4+ Good+ Extension (S1) 4+ Good+ Abduction 4+ Good+ Adduction 4+ Good+ Knee Strength Knee Manual Muscle Testing Right Flexion (S2) 4+ Good+ Extension (L3) 4+ Good+ Left Flexion (S2) 3+ Fair+ Extension (L3) 4 Good Ankle/Foot Strength Ankle and Foot Manual Muscle Testing Right Dorsiflexion (L4) 4+ Good+ Plantarflexion (S1) 4+ Good+ Left Dorsiflexion (L4) 4- Good- Plantarflexion (S1) 4- Good- PT-OP-Q Treatments Start: 03/17/19 12:53 Freq: Status: Active Protocol: Document 05/17/19 14:53 SA (Rec: 05/17/19 15:00 [email or web address]) Cardio Equipment Recumbent Stepper (Sci-Fit) Duration (Minutes) 10 Resistance 4 Gym Equipment Shuttle Recovery Heel raises bilateral Resistance 62# Shuttle Recovery Platform Stable Reps/Time 2 x 10 Unilateral Resistance 62# Shuttle Recovery Platform Stable Reps/Time 2 x 10 Bilateral Squat Resistance 100# Shuttle Recovery Platform Stable Reps/Time 2 x 15 Shuttle Balance Balance/stability Details Red chain Reps/Duration 10 min Comments NBOS, tandem stance, head turns and attempted UE movements Therapeutic Exercises Standing Exercises Lunges Standing Exercise Name lunge walks Side bilateral Reps/Minutes 4 lengths of bars Heel/toe raises Reps/Minutes 20x each Comments parallel bars marching Side bilateral Resistance 2 lb AW Equipment Used //bar as needed Reps/Minutes 6 laps Comments cues for high knee Neuro Re-Education Treatment Balance Activities walking with head turns Equipment //bar Reps/Duration 2 laps Comments gaze stabilization on PT's finger tip tandem Surface firm Equipment single bar Reps/Duration 4 lengths Comments limited UE suppoert SLS, Tandem standing, semi-tandem stand Surface firm Reps/Duration 10 s x5 Comments bilateral in // bars, Rerssited backwards stepping Surface level Reps/Duration 4 lengths Comments at bar PT-OP-T Assessment and Plan Start: 03/17/19 12:53 Freq: Status: Active Protocol: Document 05/17/19 14:53 SA (Rec: 05/17/19 15:00 SA [email or web address]) Physical Therapy Assessment Assessment Summary Assessment Pt fatigued with dynamic gait training and needs cues to limit UE support and for posture. Physical Therapy Plan Next Visit Focus/Plan Next Note Type Treatment Note Next Visit Plan cont LE stability and balance as tolerated.
--- NOTE | 2019-05-19 11:45 | PT.OTN ---
Current Diagnoses Muscle weakness (generalized) (05/19/19) Other abnormalities of gait and mobility (05/19/19) Unspecified abnormalities of gait and mobility (05/19/19) Physical Therapy Treatment Note PT-OP-A Visit Information Start: 03/17/19 12:53 Freq: Status: Active Protocol: Document 05/19/19 11:38 SA (Rec: 05/19/19 11:45 SA [email or web address]) Out-Patient Physical Therapy Visit Information Visit Information Visit Type Treatment Note Visit Start Time 09:45 Visit Stop Time 10:30 Visit Number 9 Number of RUSH SEATER Visits 2 PT-OP-B Current Condition Start: 03/17/19 12:53 Freq: Status: Active Protocol: Document 03/17/19 12:00 HH (Rec: 03/17/19 13:35 HH [email or web address]) Current Condition History of Current Condition Onset Date Aug 2018 Current Complaints Decreased balance, generalized weakness, Impaired gait and activity amish, History of Current Condition Pt is a 74 yo male present to physical therapy with a c/o decreased balance, generalized weakness and impaired ability to amb for long distance and work. Pt was admitted at [facility] on 09/01/2018 with complications including Hematuria and retention. He transferred to [facility] on 09/06/18 for 2x days and d/c back home , which is rented room in a local [facility] house with multiple steps to get to his room. Pt also received outpatient PT here for 2 months from Sep to Nov. Pt reports his amb ability and balance did improve after d/c and has been doing HEP every night. However, he noticed his balance started decreased and worsening L foot drag during amb recently but denies falls. He also c/o his L LE is getting weaker as well, along with UEs with chronic rotator cuff issues. Pt currently still amb at home and community without using SPC mostly, but he still using it sometimes if needed. Treatment Goals Patient/Caregiver Goals 1. to improve his overall walking distance and LE strength 2. to improve standing endurance for more than 20 mins Current Functional Impairments (Reported) Functional Limitations- Mobility/Gait limited to short distance ambulation ambulation without SPC decreased gait speed especially with turns step to stair negotiation with railings. 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 PT-OP-D Balance Start: 03/17/19 12:53 Freq: Status: Active Protocol: Document 03/17/19 12:00 HH (Rec: 03/17/19 13:35 HH [email or web address]) Balance Tests Mercado Balance Test Mercado Balance Test Score 46 Mercado Impairment Rating 1 to 19% Impaired (Score 45-55 ) PT-OP-E Functional Tests Start: 03/17/19 12:53 Freq: Status: Active Protocol: Document 03/17/19 12:00 HH (Rec: 03/17/19 13:35 HH [email or web address]) Functional Tests 6 Minute Walk Test Distance 705 Device Used none Comments decreased stride length as distance increase Dynamic Gait Index (DGI) Score 14 DGI Impairment Rating 40 to <60% Impaired (Score 10- 14) PT-OP-G Mobility & Gait Start: 03/17/19 12:53 Freq: Status: Active Protocol: Document 03/17/19 12:00 HH (Rec: 03/17/19 13:35 HH [email or web address]) OP Gait Assessment Gait Gait Assistance Required: Independent Distance (Feet) 705 Assistive Devices Assistive Device None Gait Deviations General Gait Pattern Decreased Stride Length Decreased Feet Clearance Wide Based Gait Factors Limiting Gait Function Factors Limiting Gait Function Decreased Activity Tolerance Decreased Strength Limited Range of Motion Poor Balance Poor Safety Awareness Stair Climbing Evaluation Devices Stair Climbing Assistive Devices Right Railing Technique/Endurance Stair Climbing Direction Ascend and Descend Stair Climbing Technique Step to Step PT-OP-J Posture/Palpation/Skin Start: 03/17/19 12:53 Freq: Status: Active Protocol: Document 03/17/19 12:00 HH (Rec: 03/17/19 13:35 HH [email or web address]) Posture Evaluation Position Standing Evaluation View Lateral Head/C-Spine Posture Forward Head T-Spine Posture Increased Kyphosis Shoulder Posture (L) Rounded (R) Rounded PT-OP-M Strength Start: 03/17/19 12:53 Freq: Status: Active Protocol: Document 03/17/19 12:00 HH (Rec: 03/17/19 13:35 HH [email or web address]) Hip Strength Hip Manual Muscle Testing Left Flexion (L2) 4- Good- Extension (S1) 4 Good Abduction 4- Good- Adduction 4 Good Right Flexion (L2) 4+ Good+ Extension (S1) 4+ Good+ Abduction 4+ Good+ Adduction 4+ Good+ Knee Strength Knee Manual Muscle Testing Right Flexion (S2) 4+ Good+ Extension (L3) 4+ Good+ Left Flexion (S2) 3+ Fair+ Extension (L3) 4 Good Ankle/Foot Strength Ankle and Foot Manual Muscle Testing Right Dorsiflexion (L4) 4+ Good+ Plantarflexion (S1) 4+ Good+ Left Dorsiflexion (L4) 4- Good- Plantarflexion (S1) 4- Good- PT-OP-Q Treatments Start: 03/17/19 12:53 Freq: Status: Active Protocol: Document 05/19/19 11:38 SA (Rec: 05/19/19 11:45 SA [email or web address]) Cardio Equipment Recumbent Elliptical (Biodex) Duration (Minutes) 10 Resistance 5 Other cues for increased stride Gym Equipment Shuttle Recovery Heel raises bilateral Resistance 62# Reps/Time 2 x 15 Unilateral Resistance 62# Shuttle Recovery Platform Stable Reps/Time 2 x 15 Bilateral Squat Resistance 100# Shuttle Recovery Platform Stable Reps/Time 2 x 15 Shuttle Balance Balance/stability Details Red chain Reps/Duration 10 min Comments NBOS, tandem stance, head turns and attempted UE movements Therapeutic Exercises Standing Exercises HS stretch Side bilateral HC stretch Side bilateral Comments CHALINO Lunges Standing Exercise Name Blue foam Side bilateral Reps/Minutes 15 x each Heel/toe raises Reps/Minutes 20x each Comments at bar marching Side bilateral Resistance 2 lb AW Equipment Used //bar as needed Reps/Minutes 6 laps Comments cues for high knee Neuro Re-Education Treatment Balance Activities tandem Surface firm Equipment single bar Reps/Duration 4 lengths Comments limited UE support SLS, Tandem standing, semi-tandem stand Surface firm Reps/Duration 10 s x5 Comments at bar stepping on various foam pads in // bars Details stepping/walking on foam pads (various types) & 1/2 balls Reps/Duration 10 laps Comments yoga mat on top of pads and 1/ 2 balls Alternating step ups Details on foam pads Reps/Duration 15 x each PT-OP-T Assessment and Plan Start: 03/17/19 12:53 Freq: Status: Active Protocol: Document 05/19/19 11:38 SA (Rec: 05/19/19 11:45 SA [email or web address]) Physical Therapy Assessment Assessment Summary Assessment Dynamic balance training is challenging, pt very reliant on UE support. Cues for increased stride and bigger/ slower movements with all exercise. Physical Therapy Plan Next Visit Focus/Plan Next Visit Plan Cont to progress dynamic balance, LE strength and gait training as tolerated.
--- NOTE | 2019-05-24 16:03 | PT.OTN ---
Current Diagnoses Muscle weakness (generalized) (05/24/19) Other abnormalities of gait and mobility (05/24/19) Unspecified abnormalities of gait and mobility (05/24/19) Physical Therapy Treatment Note PT-OP-A Visit Information Start: 03/17/19 12:53 Freq: Status: Active Protocol: Document 05/24/19 09:03 SAK (Rec: 05/24/19 09:45 SAK [id number]) Out-Patient Physical Therapy Visit Information Visit Information Visit Type Treatment Note Visit Start Time 09:00 Visit Stop Time 10:30 Total Visit Minutes 45 Visit Number 100 Number of AUTOMOBILE BODY REPAIR SUPERVISOR Visits 2 PT-OP-B Current Condition Start: 03/17/19 12:53 Freq: Status: Active Protocol: Document 03/17/19 12:00 HH (Rec: 03/17/19 13:35 HH [email or web address]) Current Condition History of Current Condition Onset Date Aug 2018 Current Complaints Decreased balance, generalized weakness, Impaired gait and activity amish, History of Current Condition Pt is a 74 yo male present to physical therapy with a c/o decreased balance, generalized weakness and impaired ability to amb for long distance and work. Pt was admitted at [facility] on 09/01/2018 with complications including Hematuria and retention. He transferred to [facility] on 09/06/18 for 2x days and d/c back home , which is rented room in a local [facility] house with multiple steps to get to his room. Pt also received outpatient PT here for 2 months from Sep to Nov. Pt reports his amb ability and balance did improve after d/c and has been doing HEP every night. However, he noticed his balance started decreased and worsening L foot drag during amb recently but denies falls. He also c/o his L LE is getting weaker as well, along with UEs with chronic rotator cuff issues. Pt currently still amb at home and community without using SPC mostly, but he still using it sometimes if needed. Treatment Goals Patient/Caregiver Goals 1. to improve his overall walking distance and LE strength 2. to improve standing endurance for more than 20 mins Current Functional Impairments (Reported) Functional Limitations- Mobility/Gait limited to short distance ambulation ambulation without SPC decreased gait speed especially with turns step to stair negotiation with railings. Personal Factors Other Personal Factors That May Effect OP Therapy/Recovery depression urinary retention hernia PT-OP-C Subjective Start: 03/17/19 12:53 Freq: Status: Active Protocol: Document 05/24/19 09:03 SAK (Rec: 05/24/19 09:45 SAK [id number]) OP-PT Subjective Patient Comments Patient Comments Unsure if getting better. States he is doing his exercises. PT-OP-D Balance Start: 03/17/19 12:53 Freq: Status: Active Protocol: Document 03/17/19 12:00 HH (Rec: 03/17/19 13:35 [email or web address]) Balance Tests Mercado Balance Test Mercado Balance Test Score 46 Mercado Impairment Rating 1 to 19% Impaired (Score 45-55 ) PT-OP-E Functional Tests Start: 03/17/19 12:53 Freq: Status: Active Protocol: Document 03/17/19 12:00 HH (Rec: 03/17/19 13:35 [email or web address]) Functional Tests 6 Minute Walk Test Distance 705 Device Used none Comments decreased stride length as distance increase Dynamic Gait Index (DGI) Score 14 DGI Impairment Rating 40 to <60% Impaired (Score 10- 14) PT-OP-G Mobility & Gait Start: 03/17/19 12:53 Freq: Status: Active Protocol: Document 03/17/19 12:00 HH (Rec: 03/17/19 13:35 HH [email or web address]) OP Gait Assessment Gait Gait Assistance Required: Independent Distance (Feet) 705 Assistive Devices Assistive Device None Gait Deviations General Gait Pattern Decreased Stride Length Decreased Feet Clearance Wide Based Gait Factors Limiting Gait Function Factors Limiting Gait Function Decreased Activity Tolerance Decreased Strength Limited Range of Motion Poor Balance Poor Safety Awareness Stair Climbing Evaluation Devices Stair Climbing Assistive Devices Right Railing Technique/Endurance Stair Climbing Direction Ascend and Descend Stair Climbing Technique Step to Step PT-OP-J Posture/Palpation/Skin Start: 03/17/19 12:53 Freq: Status: Active Protocol: Document 03/17/19 12:00 HH (Rec: 03/17/19 13:35 HH [email or web address]) Posture Evaluation Position Standing Evaluation View Lateral Head/C-Spine Posture Forward Head T-Spine Posture Increased Kyphosis Shoulder Posture (L) Rounded (R) Rounded PT-OP-M Strength Start: 03/17/19 12:53 Freq: Status: Active Protocol: Document 03/17/19 12:00 HH (Rec: 03/17/19 13:35 HH [email or web address]) Hip Strength Hip Manual Muscle Testing Left Flexion (L2) 4- Good- Extension (S1) 4 Good Abduction 4- Good- Adduction 4 Good Right Flexion (L2) 4+ Good+ Extension (S1) 4+ Good+ Abduction 4+ Good+ Adduction 4+ Good+ Knee Strength Knee Manual Muscle Testing Right Flexion (S2) 4+ Good+ Extension (L3) 4+ Good+ Left Flexion (S2) 3+ Fair+ Extension (L3) 4 Good Ankle/Foot Strength Ankle and Foot Manual Muscle Testing Right Dorsiflexion (L4) 4+ Good+ Plantarflexion (S1) 4+ Good+ Left Dorsiflexion (L4) 4- Good- Plantarflexion (S1) 4- Good- PT-OP-Q Treatments Start: 03/17/19 12:53 Freq: Status: Active Protocol: Document 05/24/19 09:03 [facility] (Rec: 05/24/19 09:45 [facility] [id number]) Cardio Equipment Recumbent Elliptical (Biodex) Duration (Minutes) 10 Resistance 5 Other cues for increased stride Gym Equipment Shuttle Balance Balance/stability Details Red chain Reps/Duration 10 min Comments NBOS, tandem stance, head turns and attempted UE movements Therapeutic Exercises Standing Exercises marching Side bilateral Resistance 2 lb AW Equipment Used //bar as needed Reps/Minutes 6 laps Comments cues for high knee Neuro Re-Education Treatment Balance Activities SLS, Tandem standing, semi-tandem stand Surface firm Reps/Duration 10 s x5 Comments at bar PT-OP-T Assessment and Plan Start: 03/17/19 12:53 Freq: Status: Active Protocol: Document 05/24/19 09:03 [facility] (Rec: 05/24/19 09:45 [facility] [id number]) Physical Therapy Assessment Goals 6 Minute Walk Test Impairment 705 ft with 6MWT Home Designer Goal (LTG) >1000 ft with 6 MWT to improve in activity tolerance and gait speed 05/24/19: minimal change at 710 LTG Duration 12 weeks Dynamic Gait Index Impairment 14/24 Home Designer Goal (LTG) Pt will improve his DGI score to 20/24 to reduce his fall risks 05/24/19: no change LTG Duration 12 weeks Weakness Impairment Bilateral UE LE weakness Home Designer Goal (LTG) To improve pt's overall UE and LE strength to 4+/5 to improve functional mobility such as walking, stair climbing prior to d/c 05/24/19: goal progress LTG Duration 12 weeks Assessment Summary Assessment No significant change in 6 min walk test. Small improvement in DGI. UE and LE strength improving. Physical Therapy Plan Frequency and Duration Frequency of Treatment 2x/Week Duration of Treatment 12 weeks Plan of Care Start Date 03/17/19 Plan of Care End Date 06/16/19 Next Visit Focus/Plan Next Note Type Treatment Note Next Visit Plan Continue PT with emphasis on challenging balance and gait for improved function and safety.
--- NOTE | 2019-05-26 11:32 | PT.OTN ---
Current Diagnoses Muscle weakness (generalized) (05/26/19) Other abnormalities of gait and mobility (05/26/19) Unspecified abnormalities of gait and mobility (05/26/19) Physical Therapy Treatment Note PT-OP-A Visit Information Start: 03/17/19 12:53 Freq: Status: Active Protocol: Document 05/26/19 11:27 SA (Rec: 05/26/19 11:31 SA [email or web address]) Out-Patient Physical Therapy Visit Information Visit Information Visit Type Treatment Note Visit Start Time 09:45 Visit Stop Time 10:14 Total Visit Minutes 44 Visit Number 11 Number of LAUNDRY PRESSER Visits 1 PT-OP-B Current Condition Start: 03/17/19 12:53 Freq: Status: Active Protocol: Document 03/17/19 12:00 HH (Rec: 03/17/19 13:35 HH [email or web address]) Current Condition History of Current Condition Onset Date Aug 2018 Current Complaints Decreased balance, generalized weakness, Impaired gait and activity amish, History of Current Condition Pt is a 74 yo male present to physical therapy with a c/o decreased balance, generalized weakness and impaired ability to amb for long distance and work. Pt was admitted at [facility] on 09/01/2018 with complications including Hematuria and retention. He transferred to [facility] on 09/06/18 for 2x days and d/c back home , which is rented room in a local [facility] house with multiple steps to get to his room. Pt also received outpatient PT here for 2 months from Sep to Nov. Pt reports his amb ability and balance did improve after d/c and has been doing HEP every night. However, he noticed his balance started decreased and worsening L foot drag during amb recently but denies falls. He also c/o his L LE is getting weaker as well, along with UEs with chronic rotator cuff issues. Pt currently still amb at home and community without using SPC mostly, but he still using it sometimes if needed. Treatment Goals Patient/Caregiver Goals 1. to improve his overall walking distance and LE strength 2. to improve standing endurance for more than 20 mins Current Functional Impairments (Reported) Functional Limitations- Mobility/Gait limited to short distance ambulation ambulation without SPC decreased gait speed especially with turns step to stair negotiation with railings. Personal Factors Other Personal Factors That May Effect OP Therapy/Recovery depression urinary retention hernia PT-OP-C Subjective Start: 03/17/19 12:53 Freq: Status: Active Protocol: Document 05/26/19 11:27 SA (Rec: 05/26/19 11:31 SA [email or web address]) OP-PT Subjective Patient Comments Patient Comments Pt reports feeling about the same, balance is still an issue. PT-OP-D Balance Start: 03/17/19 12:53 Freq: Status: Active Protocol: Document 03/17/19 12:00 HH (Rec: 03/17/19 13:35 HH [email or web address]) Balance Tests Mercado Balance Test Mercado Balance Test Score 46 Mercado Impairment Rating 1 to 19% Impaired (Score 45-55 ) PT-OP-E Functional Tests Start: 03/17/19 12:53 Freq: Status: Active Protocol: Document 03/17/19 12:00 HH (Rec: 03/17/19 13:35 HH [email or web address]) Functional Tests 6 Minute Walk Test Distance 705 Device Used none Comments decreased stride length as distance increase Dynamic Gait Index (DGI) Score 14 DGI Impairment Rating 40 to <60% Impaired (Score 10- 14) PT-OP-G Mobility & Gait Start: 03/17/19 12:53 Freq: Status: Active Protocol: Document 03/17/19 12:00 HH (Rec: 03/17/19 13:35 HH [email or web address]) OP Gait Assessment Gait Gait Assistance Required: Independent Distance (Feet) 705 Assistive Devices Assistive Device None Gait Deviations General Gait Pattern Decreased Stride Length Decreased Feet Clearance Wide Based Gait Factors Limiting Gait Function Factors Limiting Gait Function Decreased Activity Tolerance Decreased Strength Limited Range of Motion Poor Balance Poor Safety Awareness Stair Climbing Evaluation Devices Stair Climbing Assistive Devices Right Railing Technique/Endurance Stair Climbing Direction Ascend and Descend Stair Climbing Technique Step to Step PT-OP-J Posture/Palpation/Skin Start: 03/17/19 12:53 Freq: Status: Active Protocol: Document 03/17/19 12:00 HH (Rec: 03/17/19 13:35 HH [email or web address]) Posture Evaluation Position Standing Evaluation View Lateral Head/C-Spine Posture Forward Head T-Spine Posture Increased Kyphosis Shoulder Posture (L) Rounded (R) Rounded PT-OP-M Strength Start: 03/17/19 12:53 Freq: Status: Active Protocol: Document 03/17/19 12:00 HH (Rec: 03/17/19 13:35 HH [email or web address]) Hip Strength Hip Manual Muscle Testing Left Flexion (L2) 4- Good- Extension (S1) 4 Good Abduction 4- Good- Adduction 4 Good Right Flexion (L2) 4+ Good+ Extension (S1) 4+ Good+ Abduction 4+ Good+ Adduction 4+ Good+ Knee Strength Knee Manual Muscle Testing Right Flexion (S2) 4+ Good+ Extension (L3) 4+ Good+ Left Flexion (S2) 3+ Fair+ Extension (L3) 4 Good Ankle/Foot Strength Ankle and Foot Manual Muscle Testing Right Dorsiflexion (L4) 4+ Good+ Plantarflexion (S1) 4+ Good+ Left Dorsiflexion (L4) 4- Good- Plantarflexion (S1) 4- Good- PT-OP-Q Treatments Start: 03/17/19 12:53 Freq: Status: Active Protocol: Document 05/26/19 11:27 SA (Rec: 05/26/19 11:31 SA [email or web address]) Cardio Equipment Recumbent Elliptical (Biodex) Duration (Minutes) 8 Resistance 6 Other cues for increased stride Gym Equipment Shuttle Recovery Heel raises bilateral Resistance 62# Shuttle Recovery Platform Stable Unilateral Resistance 62# Shuttle Recovery Platform Stable Reps/Time 2 x 15 Bilateral Squat Resistance 100# Shuttle Recovery Platform Stable Reps/Time 2 x 15 Shuttle Balance Balance/stability Details Red chain Reps/Duration 10 min Comments NBOS, tandem stance, head turns and attempted UE movements Therapeutic Exercises Standing Exercises HS stretch Side bilateral Equipment Used stairs HC stretch Side bilateral Comments CHALINO Heel/toe raises Reps/Minutes 20x each Comments at bar hip extension Side bilateral Resistance 2# Equipment Used standing bar Reps/Minutes 2 x 8 Neuro Re-Education Treatment Balance Activities walking with head turns Equipment //bar Reps/Duration 2 laps Comments gaze stabilization on PT's finger tip tandem Surface firm Equipment single bar Reps/Duration 4 lengths Comments limited UE support SLS, Tandem standing, semi-tandem stand Surface firm Reps/Duration 10 s x5 Comments at bar stepping on various foam pads in // bars Details stepping/walking on foam pads (various types) & 1/2 balls Reps/Duration 10 laps Comments yoga mat on top of pads and 1/ 2 balls Alternating step ups Details on foam pads Reps/Duration 15 x each Other Activities uneven gait Reps/Duration 6 laps Comments gait with foam pads and yoga mat on top PT-OP-T Assessment and Plan Start: 03/17/19 12:53 Freq: Status: Active Protocol: Document 05/26/19 11:27 SA (Rec: 05/26/19 11:31 SA [email or web address]) Physical Therapy Assessment Assessment Summary Assessment Pt doing LE exercises at home, had difficulty challenging balance as he relies heavily on UEs for support. Physical Therapy Plan Next Visit Focus/Plan Next Note Type Treatment Note Next Visit Plan Continue PT with emphasis on challenging balance and gait for improved function and safety.
--- NOTE | 2019-07-18 14:19 | PT.OPDS ---
Current Diagnoses Muscle weakness (generalized) (05/26/19) Other abnormalities of gait and mobility (05/26/19) Unspecified abnormalities of gait and mobility (05/26/19) Provider Visit Care Team Role Provider Type Katia Frances PA-C Attending Provider Advanced Managed Services Consultant Family Provider Primary Care Provider Specialty: Medical Address: [address] [place] [address], [id number] Email: [email or web address] Visit Number Visit Number 11 Discharge Summary PT-OP-B Current Condition Start: 03/17/19 12:53 Freq: Status: Active Protocol: Document 03/17/19 12:00 HH (Rec: 03/17/19 13:35 HH [email or web address]) Current Condition History of Current Condition Onset Date Aug 2018 Current Complaints Decreased balance, generalized weakness, Impaired gait and activity amish, History of Current Condition Pt is a 74 yo male present to physical therapy with a c/o decreased balance, generalized weakness and impaired ability to amb for long distance and work. Pt was admitted at [facility] on 09/01/2018 with complications including Hematuria and retention. He transferred to [facility] on 09/06/18 for 2x days and d/c back home , which is rented room in a local [facility] house with multiple steps to get to his room. Pt also received outpatient PT here for 2 months from Sep to Nov. Pt reports his amb ability and balance did improve after d/c and has been doing HEP every night. However, he noticed his balance started decreased and worsening L foot drag during amb recently but denies falls. He also c/o his L LE is getting weaker as well, along with UEs with chronic rotator cuff issues. Pt currently still amb at home and community without using SPC mostly, but he still using it sometimes if needed. Treatment Goals Patient/Caregiver Goals 1. to improve his overall walking distance and LE strength 2. to improve standing endurance for more than 20 mins Current Functional Impairments (Reported) Functional Limitations- Mobility/Gait limited to short distance ambulation ambulation without SPC decreased gait speed especially with turns step to stair negotiation with railings. Personal Factors Other Personal Factors That May Effect OP Therapy/Recovery depression urinary retention hernia PT-OP-C Subjective Start: 03/17/19 12:53 Freq: Status: Active Protocol: Document 05/26/19 11:27 SA (Rec: 05/26/19 11:31 SA [email or web address]) OP-PT Subjective Patient Comments Patient Comments Pt reports feeling about the same, balance is still an issue. PT-OP-D Balance Start: 03/17/19 12:53 Freq: Status: Active Protocol: Document 03/17/19 12:00 HH (Rec: 03/17/19 13:35 HH [email or web address]) Balance Tests Mercado Balance Test Mercado Balance Test Score 46 Mercado Impairment Rating 1 to 19% Impaired (Score 45-55 ) PT-OP-E Functional Tests Start: 03/17/19 12:53 Freq: Status: Active Protocol: Document 03/17/19 12:00 HH (Rec: 03/17/19 13:35 [email or web address]) Functional Tests 6 Minute Walk Test Distance 705 Device Used none Comments decreased stride length as distance increase Dynamic Gait Index (DGI) Score 14 DGI Impairment Rating 40 to <60% Impaired (Score 10- 14) PT-OP-G Mobility & Gait Start: 03/17/19 12:53 Freq: Status: Active Protocol: Document 03/17/19 12:00 HH (Rec: 03/17/19 13:35 HH [email or web address]) OP Gait Assessment Gait Gait Assistance Required: Independent Distance (Feet) 705 Assistive Devices Assistive Device None Gait Deviations General Gait Pattern Decreased Stride Length Decreased Feet Clearance Wide Based Gait Factors Limiting Gait Function Factors Limiting Gait Function Decreased Activity Tolerance Decreased Strength Limited Range of Motion Poor Balance Poor Safety Awareness Stair Climbing Evaluation Devices Stair Climbing Assistive Devices Right Railing Technique/Endurance Stair Climbing Direction Ascend and Descend Stair Climbing Technique Step to Step PT-OP-J Posture/Palpation/Skin Start: 03/17/19 12:53 Freq: Status: Active Protocol: Document 03/17/19 12:00 HH (Rec: 03/17/19 13:35 HH [email or web address]) Posture Evaluation Position Standing Evaluation View Lateral Head/C-Spine Posture Forward Head T-Spine Posture Increased Kyphosis Shoulder Posture (L) Rounded (R) Rounded PT-OP-M Strength Start: 03/17/19 12:53 Freq: Status: Active Protocol: Document 03/17/19 12:00 HH (Rec: 03/17/19 13:35 HH [email or web address]) Hip Strength Hip Manual Muscle Testing Left Flexion (L2) 4- Good- Extension (S1) 4 Good Abduction 4- Good- Adduction 4 Good Right Flexion (L2) 4+ Good+ Extension (S1) 4+ Good+ Abduction 4+ Good+ Adduction 4+ Good+ Knee Strength Knee Manual Muscle Testing Right Flexion (S2) 4+ Good+ Extension (L3) 4+ Good+ Left Flexion (S2) 3+ Fair+ Extension (L3) 4 Good Ankle/Foot Strength Ankle and Foot Manual Muscle Testing Right Dorsiflexion (L4) 4+ Good+ Plantarflexion (S1) 4+ Good+ Left Dorsiflexion (L4) 4- Good- Plantarflexion (S1) 4- Good- PT-OP-T Assessment and Plan Start: 03/17/19 12:53 Freq: Status: Active Protocol: Document 07/18/19 14:17 (Rec: 07/18/19 14:19 [email or web address]) Physical Therapy Plan Discharge Physical Therapy Discharge Reasons [place] in Progress Discharge Comments Pt is no longer attending PT. Per previous EMR, pt has not been progressing with his overall balance since IE. D/C from PT.
== END 2019-07-21 11:09 ==
LOC: PHYS 09:45
PROVIDERS: Family Provider Physician Assistant; PCP Physician Assistant; Visit Provider Physician Assistant
DX: R26.9 Unspecified abnormalities of gait and mobility (principal); R26.89 Other abnormalities of gait and mobility; M62.81 Muscle weakness (generalized)
CPT/HCPCS: 97110; 97112; 97116; 97162

== ENCOUNTER → 2019-06-15 10:05 | Outpatient (CLI) | payer MEDICARE, MEDICAID, SELFPAY ==
[2018-09-01 16:23] VITALS: BMI 21.0
[2019-06-15 11:23] LABS: Prostate Specific Antigen 15.8 ng/mL (0.10-4.00)
[2019-06-15 11:41] LABS: Vitamin B12 279 pg/mL (239-931)
[2019-06-15 12:06] LABS: Vitamin D 25 Hydroxy (D3) 18.7 ng/mL (30.0-100.0)
[2019-06-15 12:55] LABS: Folate 12.8 ng/mL (2.76-20.0)
[2019-06-17 14:18] LABS: PSA Free % 10 % (calc) (> 25); PSA, Total 18.8 ng/mL (< 4.1)
== END ==
PROVIDERS: PCP Physician Assistant; Visit Provider Physician Assistant
DX: E53.8 Deficiency of other specified B group vitamins (principal); E63.9 Nutritional deficiency, unspecified; R97.20 Elevated prostate specific antigen [PSA]
CPT/HCPCS: 36415; 82306; 82607; 82746; 84153; 84154

== ENCOUNTER 2019-08-01 15:28 | Emergency (ER) | payer MEDICARE, MEDICAID, SELFPAY ==
[2018-09-01 16:23] VITALS: BMI 21.0
[2019-08-01 15:31] VITALS: BP 139/81; PULSE 99; RESP 20; TEMP 37; O2SAT 99
--- NOTE | 2019-08-01 15:47 | ED_ITS ---
HPI - Weakness General Chief complaint: Weakness Stated complaint: Weakness, unsteady Time Seen by Provider: 08/01/19 15:30 Source: patient and EMS Mode of arrival: EMS Limitations: no limitations History of Present Illness HPI Narrative: Patient is a 74 old male who is brought in by EMS. Report was that the police were called for a welfare check on this patient sitting in his car behind 1 of the local [employer] [place]. When he was evaluated by the police the patient was complaining of weakness so EMS was called he was brought to the emergency department. Upon my evaluation patient states that he is travis ving some lower back pain and some weakness in his legs. He states that as of yesterday he has been made homeless. He was evicted from the house where he was living. Patient states it was over an issue with washing his clothes however the patient did not get more specific than this. Related Data Home Medications Medication Instructions Recorded Confirmed aspirin 325 mg tablet 325 mg PO DAILY 02/23/19 06/28/19 Previous Rx's Medication Instructions Recorded Adult Diapers #30 each 08/10/18 DISABLED PARKING PLACARD #1 ea 09/27/18 atorvastatin 40 mg tablet 40 mg PO HS #90 tab 10/05/18 ergocalciferol (vitamin D2) 50,000 50,000 unit PO QWEEK #4 cap 06/28/19 unit capsule Allergies Allergy/AdvReac Type Severity Reaction Status Date / Time No Known Drug Allergies Allergy Verified 08/01/19 15:40 Review of Systems Constitutional Constitutional: Denies fever(s) and Denies headache(s) ENT Ears, Nose, Mouth, and Throat: Denies headache(s) Cardiovascular Cardiovascular: Denies chest pain and Denies dyspnea Respiratory Respiratory: Denies dyspnea Gastrointestinal Gastrointestinal: Denies abdominal pain, Denies nausea and Denies vomiting Genitourinary Genitourinary: Denies dysuria Musculoskeletal Musculoskeletal: Reports back pain, Reports myalgias and Reports muscle weakness Integumentary/Breasts Skin/Breast: Denies rash Neurologic Neurologic: Denies behavioral changes and Denies headache(s) Psychiatric Psychiatric: Denies behavioral changes Hematologic/Lymphatic Hematologic/Lymphatic: Denies easy bleeding and Denies easy bruising Allergic/Immunologic Allergic/Immunologic: Denies urticaria [facility] Medical History Arthritis (Chronic) BPH (benign prostatic hyperplasia) (Chronic) Colon polyps (Resolved) Depression (Chronic) Hernia (Resolved) History of alcohol abuse (Resolved 1980) Hyperlipemia (Chronic) Hypertension (Chronic) Osteopenia (Chronic) Osteoporosis (Chronic) Shoulder pain (Resolved) Urinary retention (Resolved ~04/2017) Social History household members: none Smoking Status: Never smoker second hand exposure: No alcohol intake: former substance use type: does not use Exam Initial Vital Signs Initial Vital Signs: Vital Signs Temperature 98.6 F 08/01/19 15:31 Pulse Rate 99 H 08/01/19 15:31 Respiratory Rate 20 08/01/19 15:31 Blood Pressure 139/81 08/01/19 15:31 Pulse Oximetry 99 08/01/19 15:31 Const General: cooperative and comfortable Orientation: alert, awake and oriented x3 HENMT Head: normal to inspection and normocephalic Resp Effort & Inspection: normal respiratory effort Auscultation: clear to auscultation bilaterally Cardio Rate: regular rate Rhythm: regular rhythm GI Inspection: non-distended Palpation: soft Skin Lesions: no lesions Rashes: no rashes Neuro General: alert, awake and oriented x3 Cognition: normal cognition Extrem General: normal to inspection, capillary refill normal and No edema Other: Patient was able to go from laying to sitting and also from sitting to transitioning to a bedside chair with only minimal discomfort. He also ambulated to the bathroom. Psych Appearance: grossly normal and well kempt Course Orders Ordered: ED Orders 08/01/19 15:58 Consult to Wind Power Project Manager Stat Vital Signs Vital signs: Vital Signs - 8 hr 08/01/19 15:31 08/01/19 16:32 Temperature 98.6 F Pulse Rate 99 H 85 Respiratory Rate 20 19 Blood Pressure 139/81 Blood Pressure [Left Arm] 126/65 Pulse Oximetry 99 98 MDM - Weakness MDM Narrative Medical decision making narrative: Patient was alert oriented. He did transition from the bed to the chair next to the bed without any assistance. He did ambulate to the bathroom were a took a shower with only minor assistance. He does have a cane with him. He was seen by social work. He does have SSI and food stamps. He does have a truck. He was given information with regard to area shelters and food meza. Unfortunately did not have a reason to admit him to the hospital. Patient can return at any point. Discharge Plan Departure Patient Disposition: Home Clinical Impression: Back pain Qualifiers: Back pain location: low back pain Chronicity: chronic Back pain laterality: left Sciatica presence: with sciatica Sciatica laterality: sciatica of left side Qualified Code(s): M54.42 - Lumbago with sciatica, left side Instructions: DI for Low Back Pain Activity Restrictions/Additional Instructions: I recommend you contact your primary doctor for a follow-up. If you do not have a primary provider you can contact the health rn resource nurse here at the hospital at [phone]. Use the information that you were given to help with housing and food in clothing in the local area. You can return to the emergency department for new symptoms. Prescriptions: No Action (DME) Adult Diapers Qty: 30 RF: 12 aspirin 325 mg tablet 325 mg PO DAILY RF: 0 (DME) DISABLED PARKING PLACARD Qty: 1 RF: 0 atorvastatin 40 mg tablet 40 mg PO HS Qty: 90 RF: 2 ergocalciferol (vitamin D2) 50,000 unit capsule 50,000 unit PO QWEEK Qty: 4 RF: 12 Referrals: Katia Frances PA-C [Primary Care Provider] -
[2019-08-01 16:32] VITALS: BP 126/65; PULSE 85; RESP 19; O2SAT 98
--- NOTE | 2019-08-01 17:24 | PC.NURSE ---
Patient ambulated with cane to bathroom. Requesting shower. Set patient up with showering supplies.
--- NOTE | 2019-08-01 18:07 | CM.SWNOTE ---
ED SHOE SALESMAN Note Presenting problem: Pt is a 74 yo man brought to the ED by EMS. Police were called for a wellness check on m an living in his truck. Stated problem weakness. Pt is homeless and SHOE SALESMAN was asked to consult to provide resources. He reported that he was recently evicted form his rooming house on and 0. Intervention: Met with pt who is a 74 yo male appearing older than his stated age. He is currently living in his truck. SHOE SALESMAN inquired where he planned to go upon d/c and he reported that he had not had the time to look for places to live. He has Medicaid/Medicare and SSI of $721 per month. 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 SHOE SALESMAN provided pt with information re food panties, hot meals, clothing, and shelters. He was not interested in a long-term as he has been in them before. Plan: A shower was offered to pt and he accepted this. Pt is medically clear and plan is to d/c back to his truck. No further SW needs identified. Discharge Planning/Care Management ED Crisis Response Assessment Start: 08/01/19 17:59 Freq: Status: Active Protocol: Document 08/01/19 17:59 (Rec: 08/01/19 18:07 [email or web address]) ED Crisis Response Assessment SHOE SALESMAN Assessment Type Other Reason for SHOE SALESMAN Referral Pt is homeless and was brought in by EMS after someone called 911 for a well person check. Pt has been living in his truck since being evicted a couple of days ago from a rooming house. Referred by ED staff Presenting Problem Hygeine issue, homeless Resources Provided Food bank, free lunch information provided along with shelters. Pt was not interested din a long-term at this time, preferring to return to his truck. Additional Comment Pt reported that he is on some housing lists, but due to 3 felonies is unable to be accepted for many of the housing programs.
[2019-08-01] MEDS: ACETAMINOPHEN 325 MG TABLET 650 MG PO (18:45)
== END 2019-08-01 18:50 | disposition home or self-care (01) ==
PROVIDERS: Emergency Provider Emergency Medicine; PCP Physician Assistant
DX: M54.42 Lumbago with sciatica, left side (principal)

== ENCOUNTER 2019-08-01 19:33 | Observation (INO) | payer MEDICARE, MEDICAID, SELFPAY ==
[2018-09-01 16:23] VITALS: BMI 21.0
--- NOTE | 2019-08-01 19:32 | DI.CT.S_ITS ---
PROCEDURE: CT HEAD/BRAIN WO CON INDICATIONS: fall with head injury TECHNIQUE: Noncontrast 4.5 mm thick angled axial sections acquired from the foramen magnum to the vertex, with coronal and sagittal reformats. For radiation dose reduction, the following was used: automated exposure control, adjustment of mA and/or kV according to patient size. COMPARISON: None. FINDINGS: Image quality: Excellent. CSF spaces: Basal cisterns are patent. No extra-axial fluid collections. The ventricles are symmetric in size and shape. Brain: No intracranial bleeds or masses. There is cerebral volume loss for age, with resultant ventricular and sulcal prominence. There are periventricular and deep white matter chronic small vessel ischemic changes. There is intracranial internal carotid artery atherosclerosis. Skull and face: Calvarium and visualized facial bones appear intact, without suspicious lesions. Sinuses: Visualized sinuses and mastoids are clear. IMPRESSION: No acute intracranial findings. Findings likely associated with chronic microvascular ischemic changes. Dictated by: Chastity Hannon M.D. on 08/01/2019 at 20:02 Approved by: Chastity Hannon M.D. on 08/01/2019 at 20:05
--- NOTE | 2019-08-01 19:34 | DI.RAD.S_ITS ---
PROCEDURE: XR CHEST 1V INDICATIONS: weakness TECHNIQUE: One view of the chest was acquired. COMPARISON: None. FINDINGS: Surgical changes and devices: None. Lungs and pleura: Lungs are clear. No pleural effusions or pneumothorax. Mediastinum: Mediastinal contours appear normal. Heart size is normal. Bones and chest wall: No suspicious bony lesions. Overlying soft tissues appear unremarkable. IMPRESSION: No acute cardiopulmonary findings. Dictated by: Chastity Hannon M.D. on 08/01/2019 at 20:06 Approved by: Chastity Hannon M.D. on 08/01/2019 at 20:06
[2019-08-01 19:38] VITALS: BP 119/67; PULSE 92; RESP 16; TEMP 36.7; O2SAT 98
--- NOTE | 2019-08-01 19:38 | ED_ITS ---
HPI - Weakness General Stated complaint: GLF Time Seen by Provider: 08/01/19 19:33 Source: patient and EMS Mode of arrival: EMS Limitations: no limitations History of Present Illness HPI Narrative: 74M smoker with history of drinking, HTN, and hyperlipidemia returns for the second time today by EMS due to weakness, falls and head injury. He is homeless and lives in his truck. His initial visit was for a welfare check when he was found in his truck. Police brought him here. He required help moving, but was eventually able to get around. He had a social work consult and was given resources. He did not want to go to a jail. He was not in need of any labs or imaging. He was discharged. He took a cab to his truck and was too weak to make it and fell backwards, striking his head. He denies LOC, N/V or other. Related Data Home Medications Medication Instructions Recorded Confirmed aspirin 325 mg tablet 325 mg PO DAILY 02/23/19 06/28/19 Previous Rx's Medication Instructions Recorded Adult Diapers #30 each 08/10/18 DISABLED PARKING PLACARD #1 ea 09/27/18 atorvastatin 40 mg tablet 40 mg PO HS #90 tab 10/05/18 ergocalciferol (vitamin D2) 50,000 50,000 unit PO QWEEK #4 cap 06/28/19 unit capsule Allergies Allergy/AdvReac Type Severity Reaction Status Date / Time No Known Drug Allergies Allergy Verified 08/01/19 15:40 [facility] Social History household members: none Smoking Status: Never smoker second hand exposure: No alcohol intake: former substance use type: does not use Exam Narrative Exam Narrative: GENERAL: [74] year old patient appears stated age. Disheveled, smells of urine, unkempt HEAD: Small superficial abrasion on scalp, no depressed skull fracture EYES: Pupils equal round and reactive. Extraocular motions intact. No scleral icterus. No injection or drainage. ENT: Nose without bleeding, purulent drainage. Throat without erythema, tonsillar hypertrophy or exudate. Airway patent. NECK: Trachea midline. Non tender CARDIOVASCULAR: Regular rate and rhythm without murmurs, gallops, or rubs. RESPIRATORY: Clear to auscultation. Breath sounds equal bilaterally. No wheezes, rales, or rhonchi. GASTROINTESTINAL: Abdomen soft, non-tender, nondistended. EXTREMITIES: No edema or joint tenderness. BACK: Nontender without deformity or crepitance. No flank tenderness. NEURO: AOx3. SKIN: No rash or erythema of visible areas Initial Vital Signs Initial Vital Signs: Vital Signs Temperature 98.1 F 08/01/19 19:38 Pulse Rate 92 H 08/01/19 19:38 Respiratory Rate 16 08/01/19 19:38 Blood Pressure 119/67 08/01/19 19:38 Pulse Oximetry 98 08/01/19 19:38 Course Orders Ordered: ED Orders 08/01/19 19:32 CT head/brain wo con Stat 08/01/19 19:34 XR chest 1V Stat Urinalysis and Microscopic Stat 08/01/19 19:45 Basic Metabolic Panel Stat Complete Blood Count AUTO DIFF Stat Ethanol (ETOH) Stat Magnesium Stat Troponin I Stat 08/01/19 20:53 Blood Culture Stat Acetaminophen (Tylenol) 650 mg PO Q6HR PRN PRN Reason: As Needed for Fever/Mild Pain Aspirin (Aspirin) 325 mg PO DAILY SKY Atorvastatin Calcium (Lipitor) 40 mg PO HS SKY Enoxaparin Sodium (Lovenox) 40 mg SUBCUT DAILY SKY Sodium Chloride (Normal Saline 0.9%) 1,000 mls @ 100 mls/hr IV CONT SKY Magnesium Hydroxide (Milk Of Magnesia) 30 ml PO DAILY PRN PRN Reason: Constipation Ondansetron HCl (Zofran) 4 mg IV Q6HR SKY Discontinued Medications Ceftriaxone Sodium/Dextrose (Rocephin) 1 gm in 50 mls @ 100 mls/hr IV NOW ONE Stop: 08/01/19 21:04 Ceftriaxone Sodium/Dextrose (Rocephin) 1 gm in 50 mls @ 100 mls/hr IV NOW ONE Stop: 08/01/19 21:35 Last Admin: 08/01/19 21:10 Dose: Not Given Documented by: ATA Vital Signs Vital signs: Vital Signs - 8 hr 08/01/19 19:38 Temperature 98.1 F Pulse Rate 92 H Respiratory Rate 16 Blood Pressure 119/67 Pulse Oximetry 98 MDM - Weakness Lab Data Result diagrams: 08/01/19 19:45 08/01/19 19:45 Labs: Lab Results 08/01/19 08/01/19 Range/Units 19:45 19:45 WBC 11.5 H (4.5-11.0) X10^3/uL RBC 4.70 (4.5-5.9) X10^6/uL Hgb 15.3 (13.5-17.5) g/dL Hct 43.7 (41-53) % MCV 93.2 (80-100) fL MCH 32.5 (26-34) PG MCHC 34.9 (30-36) % RDW 13.3 (11.6-14.8) % Plt Count 230 (150-400) X10^3/uL Neut % (Auto) 79.5 H (50-75) % Lymph % (Auto) 10.3 L (25-40) % [place] % (Auto) 9.0 (3-14) % Eos % (Auto) 0.3 L (2-4) % Baso % (Auto) 0.9 (0-2) % Neut # (Auto) 9100 H (3351-6326) /uL Lymph # (Auto) 1200 (2146-1558) /uL [place] # (Auto) 1000 H (0-900) /uL Eos # (Auto) 0 (0-450) /uL Baso # (Auto) 100 (0-100) /uL Sodium 140 (137-145) mmol/L Potassium 3.5 (3.4-5.1) mmol/L Chloride 107 (98-107) mmol/L Carbon Dioxide 22 (22-32) mmol/L BUN 27 H (9-20) mg/dL Creatinine 0.90 (0.66-1.25) mg/dL Estimated GFR > 60.0 (>60) mL/min BUN/Creatinine Ratio 30.0 H (6-22) Glucose 123 H (80-110) mg/dL Calcium 9.0 (8.4-10.2) mg/dL Magnesium 2.0 (1.6-2.3) mg/dL Troponin I < 0.012 (0.01-0.034) ng/mL Ethyl Alcohol < 10 ( - 10) mg/dL Imaging Data Chest x-ray: Radiologist's impression: [address] [address] XRay Report Signed Patient: Dion Suresh LMR#: [id number] : 7Acct:[id number] Age/Sex: 74 / MDate of Service: 08/01/19 Loc: ED Accession Number: [id number] Procedure: XR chest 1V Ordering Provider: Tremayne Lucero D.O. PROCEDURE: XR CHEST 1V INDICATIONS: weakness TECHNIQUE: One view of the chest was acquired. COMPARISON: None. FINDINGS: Surgical changes and devices: None. Lungs and pleura: Lungs are clear. No pleural effusions or pneumothorax. Mediastinum: Mediastinal contours appear normal. Heart size is normal. Bones and chest wall: No suspicious bony lesions. Overlying soft tissues appear unremarkable. IMPRESSION: No acute cardiopulmonary findings. Dictated by: Chastity Hannon M.D. on 08/01/2019 at 20:06 Approved by: Chastity Hannon M.D. on 08/01/2019 at 20:06 CT scan - head: Radiologist's impression: [place] [address] CT Scan Report Signed Patient: Dion Suresh R#: [id number] : [id number] Age/Sex: 74 / MDate of Service: 08/01/19 Loc: ED Accession Number: [id number] Procedure: CT head/brain wo con Ordering Provider: Tremayne Lucero D.O. PROCEDURE: CT HEAD/BRAIN WO CON INDICATIONS: fall with head injury TECHNIQUE: Noncontrast 4.5 mm thick angled axial sections acquired from the foramen magnum to the vertex, with coronal and sagittal reformats. For radiation dose reduction, the following was used: automated exposure control, adjustment of mA and/or kV according to patient size. COMPARISON: None. FINDINGS: Image quality: Excellent. CSF spaces: Basal cisterns are patent. No extra-axial fluid collections. The ventricles are symmetric in size and shape. Brain: No intracranial bleeds or masses. There is cerebral volume loss for age, with resultant ventricular and sulcal prominence. There are periventricular and deep white matter chronic small vessel ischemic changes. There is intracranial internal carotid artery atherosclerosis. Skull and face: Calvarium and visualized facial bones appear intact, without suspicious lesions. Sinuses: Visualized sinuses and mastoids are clear. IMPRESSION: No acute intracranial findings. Findings likely associated with chronic microvascular ischemic changes. Dictated by: Chastity Hannon M.D. on 08/01/2019 at 20:02 Approved by: Chastity Hannon M.D. on 08/01/2019 at 20:05 Discharge Plan Departure Patient Disposition: Admitted as Observation Clinical Impression: Acute dehydration, Weakness, Acute UTI Referrals: Katia Frances PA-C [Primary Care Provider] - Admit Date/Time: 08/01/19 21:01 Admit Provider: Garima Banks
[2019-08-01 19:53] LABS: Add Manual Diff / Slide Review NO; Basophils Absolute Auto 100 /uL (0-100); Basophils Percent Auto 0.9 % (0-2); Eosinophils Absolute Auto 0 /uL (0-450); Eosinophils Percent Auto 0.3 % (2-4); Hematocrit 43.7 % (41-53); Hemoglobin 15.3 g/dL (13.5-17.5); Lymphocytes Absolute Auto 1200 /uL (1100-4500); Lymphocytes Percent Auto 10.3 % (25-40); Mean Corpuscular HGB Conc 34.9 % (30-36); Mean Corpuscular Hemoglobin 32.5 PG (26-34); Mean Corpuscular Volume 93.2 fL (80-100); Monocytes Absolute Auto 1000 /uL (0-900); Neutrophils Absolute Auto 9100 /uL (1500-7000); Neutrophils Percent Auto 79.5 % (50-75); Platelet Count 230 X10^3/uL (150-400); Red Cell Distribution Width 13.3 % (11.6-14.8); White Blood Cell Count 11.5 X10^3/uL (4.5-11.0)
[2019-08-01 20:00] LABS: Potassium 3.5 mmol/L (3.4-5.1)
[2019-08-01 20:04] LABS: Blood Urea Nitrogen 27 mg/dL (9-20); Carbon Dioxide 22 mmol/L (22-32); Chloride 107 mmol/L (98-107); Estimated Glomerular Filt Rate > 60.0 mL/min (>60); Ethanol (ETOH) < 10 mg/dL; Glucose 123 mg/dL (80-110); HEMOLYSIS < 15 (0-50); Sodium 140 mmol/L (137-145)
[2019-08-01 20:15] LABS: Troponin I < 0.012 ng/mL (0.01-0.034)
[2019-08-01] MEDS: CEFTRIAXONE 1 GM/50 ML FROZ.PIGGY IV (21:56)
[2019-08-01] MEDS: SODIUM CHLORIDE 0.9% 1,000 ML 1000 ML IV (21:57)
--- NOTE | 2019-08-01 21:58 | P.HP_ITS ---
History of Present Illness History of Present Illness Date Patient Seen: 08/01/19 Time Patient Seen: 20:30 Chief complaint: GLF, FOUND TO HAVE A UTI Narrative: Dion Suresh is a 74-year-old homeless male with a past medical history of having undergone a TURP, chronic urinary incontinence and hyperlipidemia, was in his usual state of health when he was walking to word his truck, apparently fell and was found by a passerby. EMS was called who brought him to the emergency department. Patient states he has chronic urinary incontinence due to having had surgery on his bladder. He states he has chronic hematuria followed by urination. Review of the chart indicates he has been seeing Urology in [place] for this however he has not been to the urologist in quite some time due to the inability to get there. He states that he has problems walking, feels unsteady on his feet and apparently hit his head when he fell today. He denies chest pain, shortness of breath, nausea or vomiting. He does endorse being incontinent of urine denies being incontinent of stool. He states he receives prednisone shot for arthritis. He endorses having depression, is not treated though he has been previously on anti depressants in the past and he states positive for easy bleeding bruising. Patient History Family & Social History Social History: household members none Safety & Behavioral: Feels Safe in Current Yes, currently homeless Environment Been Physically Hurt or No Threatened By a Person Tobacco & Substance use: Smoking Status Never smoker alcohol intake former Substance Use Type does not use Meds Home Medications and Allergies Home Medications Medication Instructions Recorded Confirmed Type Adult Diapers #30 each 08/10/18 06/28/19 Rx DISABLED PARKING PLACARD #1 ea 09/27/18 06/28/19 Rx atorvastatin 40 mg tablet 40 mg PO HS #90 tab 10/05/18 06/28/19 Rx aspirin 325 mg tablet 325 mg PO DAILY 02/23/19 06/28/19 History ergocalciferol (vitamin D2) 50,000 50,000 unit PO QWEEK #4 cap 06/28/19 Rx unit capsule Allergies Allergy/AdvReac Type Severity Reaction Status Date / Time No Known Drug Allergies Allergy Verified 08/01/19 15:40 Review of Systems Constitutional Constitutional: Reports frequent falls and Reports weakness ENT Ears, Nose, Mouth, and Throat: Yes abnormal hearing and Yes poor balance Cardiovascular Cardiovascular: Denies chest pain, Denies chest pain with activity, Denies fast heart rate, Denies foot swelling and Denies shortness of breath Respiratory Respiratory: Denies cough, Denies dyspnea and Denies wheezing Gastrointestinal Comments: States multiple bowel resections, has to take B12 injections because of this Genitourinary Genitourinary: Reports hematuria (Start of urinary stream starts out blood, chronic and ongoing s/p TURP), Reports urinary frequency and Reports urinary incontinence Musculoskeletal Musculoskeletal: Reports myalgias and Reports muscle weakness Neurologic Neurologic: Reports abnormal hearing, Reports frequent falls, Reports disequilibrium and Reports weakness Psychiatric Psychiatric: Reports depression (Stopped taking anti-depressants) Hematologic/Lymphatic Hematologic/Lymphatic: Reports easy bleeding and Reports easy bruising Allergic/Immunologic Allergic/Immunologic: Denies wheezing Exam Vital Signs (past 8 hours): - 08/01/19 19:38 Temperature 98.1 F Pulse Rate 92 H Respiratory Rate 16 Blood Pressure 119/67 Pulse Oximetry 98 Oxygen Delivery Method Room Air Const General: cooperative, disheveled, frail appearing and ill appearing Nutritional Appearance: cachectic Orientation: oriented x3 HENMT Head: normal to inspection Nose: external nose normal Face and sinus: normal facial exam Mouth: other (mucus membranes appear dry) Teeth and gingiva: poor dentition Eyes General: appearance normal, both eyes and all related structures Neck Neck: normal visual inspection and No JVD Resp Effort & Inspection: normal respiratory effort Auscultation: clear to auscultation bilaterally Cardio Rate: regular rate Rhythm: regular rhythm Heart Sounds: S1 normal and S2 normal GI Palpation: hernia (ubilical) Skin General: scars Other: Poor turgur, multiple bruises on arms Neuro General: oriented x3 and moves all extremities Cognition: normal cognition Speech: speech normal (weak) Extrem General: normal to inspection, full ROM, no clubbing, cyanosis or edema and no calf tenderness Psych Appearance: disheveled Mental Status: mental status grossly normal Mood: anxious mood Affect: normal affect Attitude: cooperative Thought Process: loose association Judgment: fair Objective Labs Result Diagrams: 08/01/19 19:45 08/01/19 19:45 Labs: Laboratory Results - last 24 hr 08/01/19 08/01/19 19:45 19:45 WBC 11.5 H RBC 4.70 Hgb 15.3 Hct 43.7 MCV 93.2 MCH 32.5 MCHC 34.9 RDW 13.3 Plt Count 230 Neut % (Auto) 79.5 H Lymph % (Auto) 10.3 L [place] % (Auto) 9.0 Eos % (Auto) 0.3 L Baso % (Auto) 0.9 Neut # (Auto) 9100 H Lymph # (Auto) 1200 [place] # (Auto) 1000 H Eos # (Auto) 0 Baso # (Auto) 100 Sodium 140 Potassium 3.5 Chloride 107 Carbon Dioxide 22 BUN 27 H Creatinine 0.90 Estimated GFR > 60.0 BUN/Creatinine Ratio 30.0 H Glucose 123 H Calcium 9.0 Magnesium 2.0 Troponin I < 0.012 Ethyl Alcohol < 10 Assessment & Plan Assessment & Plan narrative: Dion Suresh will be admitted as an inpatient for IV antibiotic treatment for his urinary tract infection. 1. Urinary tract infection, complicated, acute, present on admission * Patient will be initiated on IV ceftriaxone 1 g daily * Patient's urine cultures are pending * Patient will likely need referral to Urology 2. Metabolic encephalopathy, acute, present on admission * Patient does not meet sepsis criteria * Will provide IV hydration with normal saline at 100 mL/hour 3. Hyperlipidemia, stable, present on admission * Continue home dose of atorvastatin 40 mg p.o. daily Patient is admitted in inpatient as his stay is anticipated to exceed 2 midnights. FEN: IV normal saline at 100 mL/hour, regular diet, chemistries in the am. VTE Prophylaxis: Enoxaparin 40 mg subQ daily Disposition: unknown at this time Code status: Full Code Admission time: 60 minutes Meds reconciled: Partial based on current med list
[2019-08-01 22:13] LABS: Bilirubin Urine UA 1+ (NEGATIVE); Glucose Urine UA NEGATIVE (Negative); Ketones Urine UA 2+ (NEGATIVE); Leukocyte Esterase Urine UA 2+ (NEGATIVE); Nitrite Urine UA POSITIVE (Negative); Occult Blood Urine UA 3+ (Negative); Protein Urine UA 3+ (Negative); Specific Gravity Urine UA 1.025 (1.000-1.035); pH Urine UA 6.5 (4.5-8.0)
[2019-08-01 22:22] LABS: Appearance Urine UA Cloudy; Color Urine UA BROWN
[2019-08-01 22:23] LABS: Bacteria Urine Many (>30); RBC Urine >100/HPF (0-5/HPF); WBC Urine >100/HPF (0-5/HPF)
[2019-08-01 22:24] LABS: Culture Indicated Urine Specimen Cultured; Ictotest Urine Negative (Negative)
[2019-08-01 22:40] VITALS: BP 140/79; PULSE 72; RESP 20; TEMP 36.9; O2SAT 97
[2019-08-01 22:42] VITALS: BMI 25.0
[2019-08-01] MEDS: SODIUM CHLORIDE 0.9% 1,000 ML 100 ML IV (23:18)
[2019-08-01] MEDS: ONDANSETRON 4 MG/2 ML INJ IV (23:51)
[2019-08-01] MEDS: ATORVASTATIN 20 MG TABLET 40 MG PO (23:51)
[2019-08-02] VITALS (10 sets, daily range): BP systolic 93–127; BP diastolic 54–67; PULSE 58–76; RESP 15–18; TEMP 36.3–37; O2SAT 95–98
[2019-08-02 07:23] LABS: Add Manual Diff / Slide Review NO; Basophils Absolute Auto 0 /uL (0-100); Basophils Percent Auto 0.4 % (0-2); Eosinophils Absolute Auto 100 /uL (0-450); Eosinophils Percent Auto 1.3 % (2-4); Hemoglobin 14.4 g/dL (13.5-17.5); Lymphocytes Absolute Auto 1200 /uL (1100-4500); Lymphocytes Percent Auto 12.4 % (25-40); Mean Corpuscular HGB Conc 35.1 % (30-36); Mean Corpuscular Hemoglobin 32.8 PG (26-34); Mean Corpuscular Volume 93.3 fL (80-100); Monocytes Absolute Auto 900 /uL (0-900); Monocytes Percent Auto 9.4 % (3-14); Neutrophils Absolute Auto 7500 /uL (1500-7000); Neutrophils Percent Auto 76.5 % (50-75); Platelet Count 196 X10^3/uL (150-400); Red Blood Cell Count 4.39 X10^6/uL (4.5-5.9); Red Cell Distribution Width 13.5 % (11.6-14.8); White Blood Cell Count 9.8 X10^3/uL (4.5-11.0)
[2019-08-02 07:25] LABS: BUN Creatinine Ratio 38.3 (6-22); Blood Urea Nitrogen 23 mg/dL (9-20); Calcium 8.1 mg/dL (8.4-10.2); Carbon Dioxide 22 mmol/L (22-32); Chloride 112 mmol/L (98-107); Estimated Glomerular Filt Rate > 60.0 mL/min (>60); Glucose 90 mg/dL (80-110); HEMOLYSIS < 15 (0-50); Potassium 3.4 mmol/L (3.4-5.1); Sodium 140 mmol/L (137-145)
[2019-08-02] MEDS: ACETAMINOPHEN 325 MG TABLET 650 MG PO ×2 (08:53→18:45)
[2019-08-02] MEDS: ASPIRIN 325 MG TABLET PO (08:53)
[2019-08-02] MEDS: ENOXAPARIN 40 MG/0.4 ML SYRINGE SUBCUT (08:53)
--- NOTE | 2019-08-02 11:24 | CM.DANOTE ---
Patient is a 74 year old male who was admitted on 08/01/19 OBS STATUS for GLF. Pt has [facility] and [facility] for insurance and his PCP is Dr. Katia Frances PAC. EMR was reviewed. Per MD, pt with UTI and waiting for further workup to determine his dx and needs. PT ordered and pending. SW met bedside with pt and explained role and updated whiteboard. 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 Pt states he could fight the eviction but does not have the energy or finances. Pt confirms that he still receives food stamps and monthly income from social security and moved his belongings into his truck for now and has been staying in [place] parking lots. Pt still has his 3 vehicles in town that he rotates and plans to stay in his car as it has the most room. Pt still has a sister who lives in [place] and his mother has . Pt was last admitted to [facility] last year Aug 2018 and was discharged to [facility] for rehab before getting into the Boarding Home. Pt states his [facility] stay was helpful and he was there about 27 days. Pt has been independent with ADL's (although admits to chronic lack of hygiene) and uses a cane usually for ambulation. 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 Pt has a hx of incarceration and states he was last incarcerated back in 1989 with some stints for failure to register (pt did not elaborate on what he needed to register for?) and that his felony record has continued to be a barrier for jobs and housing. Pt aware of the housing options and shelters and has completed many applications for housing and Section 8. SW discussed possible option of getting assessed for [facility]/AFH options rather than attempting low income housing and pt seemed somewhat interested but did not seem to quite understand that it would be a different process rather than Section 8 housing. Pt does confirm that he has had increased medical issues and increased weakness that he may benefit from assistance such as Assisted Living Facility. Pt states that he currently plans to d/c back to his car and continue working on a plan to get an RV or trailer to stay in but is agreeable to SW inquiring about possible assessment for [facility] Care through Medicaid. SW also called Medicaid Transportation and confirmed that the pt has transportation benefits for medical appointments and would qualify for transportation from the hospital if needed since he arrived via EMS. Plan: SW to follow for PT eval to determine possible d/c needs and pt's current OBS Status could be a barrier if SNF needed and his homelessness a barrier if HH recommended. SW will completed Medicaid LTC application and fax towards possible assessment to determine LTC options. KAM Basilio Discharge Planning/Care Management CM Discharge Assessment Start: 08/02/19 11:21 Freq: Status: Active Protocol: Document 08/02/19 11:22 BF (Rec: 08/02/19 11:24 BF [id number]) Discharge Planning Assessment Assigned Steel Welder KAM Brown DPOA/Assigned Designee Name none Advance Directives? No History Provided By Patient,Medical Record Has Patient been admitted in last 30 No days? Prior Living Arrangements Homeless Comment Recently evicted from Boarding House 2 days ago Household Members none Type of transporation used prior to Drives own vehicle admit Independent with ADL's Yes Is patient alert and oriented? Yes Caregiver for Another No DME Already Rented / Owned Cane Comment Waiting for further eval to determine d/c needs. Barriers to Discharge Yes Comment Homeless, weak Discharge Plan Home Transportation Arrangement To be determined based on needs Whiteboard Updated in Patient Room with Yes name and ext. # of Steel Welder Review Status In Process Please Provide Date Initial DC 08/02/19 Assessment Was Performed Next Review Type Continued Stay Review
--- NOTE | 2019-08-02 13:38 | PT.IIE ---
Current Diagnoses Dehydration (08/01/19) Metabolic encephalopathy (08/01/19) Urinary tract infection, site not specified (08/01/19) Homelessness (08/01/19) Surgical History (Last Reviewed 09/01/18 @ 17:31 by Stephanie Macias MD) History of cataract removal with insertion of prosthetic lens (02/2016) Hx of cystoscopy (Acute 04/2017) Hx of transurethral resection of prostate (Resolved 04/2017) Status post colectomy (2010) Status post hernia repair (05/2013) Medical History (Last Reviewed 08/01/19 @ 18:00 by Beto Esquivel DO) Arthritis (Chronic) BPH (benign prostatic hyperplasia) (Chronic) Colon polyps (Resolved) Depression (Chronic) Hernia (Resolved) History of alcohol abuse (Resolved 1980) Hyperlipemia (Chronic) Hypertension (Chronic) Osteopenia (Chronic) Osteoporosis (Chronic) Shoulder pain (Resolved) Urinary retention (Resolved ~04/2017) Physical Therapy Inpatient Evaluation/Re-Eval M1 PT/OT-IP Prior Functional Status Start: 08/02/19 15:58 Freq: NEEDED Status: Active Protocol: Document 08/02/19 13:38 AB (Rec: 08/02/19 16:11 AB [id number]) Medical Review Prior Functional Status Medical History Reviewed Yes Communication able to make needs known Mobility and Gait pt stated that he is modified independent with all mobilities and ambulation without AD but occasionally uses a SPC. Social History Household Members none Living Arrangements Homeless Number of Stairs To Enter/Railing? pt stated that he is homeless at this time and sleeps on his car M2 PT-IP Current Condition Start: 08/02/19 15:58 Freq: NEEDED Status: Active Protocol: Document 08/02/19 13:38 AB (Rec: 08/02/19 16:11 AB [id number]) Physical Therapy Current Condition Current Condition Evaluation Date 08/02/19 Treatment Diagnosis UTI;metabolic encephalopathy; difficulty in walking Onset Date 08/01/19 Precautions Other Precautions falls M3 PT-IP Subjective Start: 08/02/19 15:58 Freq: NEEDED Status: Active Protocol: Document 08/02/19 13:38 AB (Rec: 08/02/19 16:11 AB [id number]) Subjective Physical Therapy Visit Type Type Initial Evaluation Visit Start Time 13:38 Visit Stop Time 14:09 Total Visit Minutes 31 Number of MOLD MAKING SUPERVISOR Visits 0 Physical Therapy Visit Comments Patient Comments pt agreeable to do PT M4 PT-IP Mobility and Gait Start: 08/02/19 15:58 Freq: NEEDED Status: Active Protocol: Document 08/02/19 13:38 AB (Rec: 08/02/19 16:11 AB [id number]) PT-Bed Mobility Assessment Supine to Sit Supine to Sit Standby Assistance Sit to Supine Sit to Supine Standby Assistance PT-Transfer Assessment Sit to and From Stand Sit to and from Stand Minimal Assistance,1 Person Assistance,Use of Upper Extremities Equipment Transfer Assistive Device Gait Belt,Front Wheeled Walker Orthotic/Prosthetic Devices or Brace: No Transfers Transfer Destination Bed,Chair Transfer Technique pt ambulated using FWW Transfer Ability Level of Assist Minimal Assistance,1 Person Assistance,Use of Upper Extremities Gait Assessment Gait Gait Assistance Required: Contact Guard Assist,Minimum Assistance,Total Assistance Distance (Feet) 40 Able to Maintain Weight Bearing Status Yes During Gait Assistive Devices Assistive Device Gait Belt,Front Wheeled Walker Orthotic/Prosthetic Devices or Brace: No Gait Deviations General Gait Pattern Antalgic,Decreased Stride Length,Decreased Feet Clearance,Flexed Trunk,Step-to Gait Factors Limiting Gait Function Factors Limiting Gait Function Decreased Activity Tolerance, Decreased Strength,Difficulty Following Directions,Limited Range of Motion,Pain,Poor Balance,Poor Safety Awareness Comments Gait Comments pt can be impulsive and requires cues to slow down for safety. pt presents with shuffling gait. PT-Balance Assessment Sitting Balance and Reactions Static Sitting Balance Ability Good Dynamic Sitting Balance Ability Good Standing Balance and Reactions Static Standing Balance Ability Fair Dynamic Standing Balance Ability Fair Device Used FWW M5 PT-IP Objective Assessments Start: 08/02/19 15:58 Freq: NEEDED Status: Active Protocol: Document 08/02/19 13:38 AB (Rec: 08/02/19 16:11 AB [id number]) Orientation Orientation/Cognition Level of Alertness Alert Orientation Name,Age,Place,Situation Language Function Ability No Deficits Noted Safety Awareness Decreased Safety Awareness Memory Description Short Term Impaired Gross Range of Motion Lower Extremity ROM Assessment Within Functional Limits Strength Lower Extremity Strength Assessment Bilaterally Impaired Comments Strength Comments LLE: 3/5 RLE 3+/5 Sensation Assessment Sensation Gross Sensation WNL Muscle Tone Muscle Tone WNL Yes M6 PT-IP Treatment Start: 08/02/19 15:58 Freq: NEEDED Status: Active Protocol: Document 08/02/19 13:38 AB (Rec: 08/02/19 16:11 AB [id number]) Physical Therapy Treatment Education Education Provided Safety M7 PT-IP Assessment and Plan Start: 08/02/19 15:58 Freq: NEEDED Status: Active Protocol: Document 08/02/19 13:38 AB (Rec: 08/02/19 16:11 AB [id number]) PT Summary Assessment and Plan Potential Rehabilitation Potential Good Status of Condition at Evaluation Stable Summary Impairments Pain,ROM,Strength,Balance, Coordination,Sensation,Tone, Cognition,Bed Mobility, Transfers,Gait,Activity Tolerance Assessment Summary pt requiring min A with mobility using a FWW. presents with unsteady shuffling gait. pt does not have a FWW and currently is homeless and stated that a FWW won't fit into his car. pt needs to be more independent and functional to be able to live by himself. d/c plan depending on progress but at this time will require SNF rehab. Goals Bed Mobility Goal Independent Transfer Goal Independent,Cane,Front Wheeled Walker Gait Goal Independent,Cane,Front Wheel Walker Gait Distance 200 Other Goals up/down 5 steps 1 rail SBA Days to Meet Goals 10 Frequency of Treatment Frequency Of Treatment Once a Day Treatment Plan Physical Therapy Treatment Plan Bed Mobility Training,Transfer Training,Gait Training, Therapeutic Exercise,Balance Retraining,Discharge Planning, Hot or Cold Pack,Neuromuscular Re-ed,Coordination Retraining ,Manual Therapy Other Recommendations and Next Treatment ambulation Focus Recommendations To Nursing Amount of Assist Needed 1 Person Assist Discharge Recommendations PT Discharge Recommendations SNF Rehab Equipment Needed for Home Before FWW if not safe with SPC and Discharge if pt is going home.
--- NOTE | 2019-08-02 15:22 | PM.PN.1 ---
Subjective Subjective Date Patient Seen: 08/02/19 Interval history: The patient is a 74-year-old male who was admitted to the hospital last evening for ground level fall and probable urinary tract infection. Today the patient was able to get up with physical therapy. It is unclear how steady he was with ambulation. His urine culture interestingly enough came back no growth. Have asked microbiology to replace and re-evaluate this. Patient has no specific complaints at this time. He has no shortness of breath chest pain nausea vomiting or diarrhea. Patient is homeless living out of his truck. Exam Vital Signs (past 8 hours): - 08/02/19 08:07 08/02/19 11:51 Temperature 97.3 F L 98.6 F Pulse Rate 76 72 Respiratory Rate 18 16 Blood Pressure 102/59 L 105/67 Pulse Oximetry 96 97 Oxygen Delivery Method Room Air Oxygen Flow Rate 0 Narrative Exam Narrative: Discharge hold elderly male in no obvious distress Lungs: Clear to auscultation Cardiac exam: Regular rate and rhythm normal S1-S2 Abdomen: Soft nontender nondistended Extremities: No edema Objective Labs Result Diagrams: 08/02/19 07:00 08/02/19 07:00 Labs: Laboratory Results - last 24 hr 08/01/19 08/01/19 08/01/19 19:45 19:45 21:50 WBC 11.5 H RBC 4.70 Hgb 15.3 Hct 43.7 MCV 93.2 MCH 32.5 MCHC 34.9 RDW 13.3 Plt Count 230 Neut % (Auto) 79.5 H Lymph % (Auto) 10.3 L [place] % (Auto) 9.0 Eos % (Auto) 0.3 L Baso % (Auto) 0.9 Neut # (Auto) 9100 H Lymph # (Auto) 1200 [place] # (Auto) 1000 H Eos # (Auto) 0 Baso # (Auto) 100 Sodium 140 Potassium 3.5 Chloride 107 Carbon Dioxide 22 BUN 27 H Creatinine 0.90 Estimated GFR > 60.0 BUN/Creatinine Ratio 30.0 H Glucose 123 H Lactate 1.0 Calcium 9.0 Magnesium 2.0 Troponin I < 0.012 Urine Color Urine Appearance Urine pH Ur Specific [place] Urine Protein Urine Glucose (UA) Urine Ketones Urine Occult Blood Urine Nitrate Urine Bilirubin Urine Ictotest Urine Urobilinogen Ur Leukocyte Esterase Urine RBC Urine WBC Urine Bacteria Ur Culture Indicated? Ethyl Alcohol < 10 08/01/19 08/02/19 08/02/19 22:03 07:00 07:00 WBC 9.8 RBC 4.39 L Hgb 14.4 Hct 41.0 MCV 93.3 MCH 32.8 MCHC 35.1 RDW 13.5 Plt Count 196 Neut % (Auto) 76.5 H Lymph % (Auto) 12.4 L [place] % (Auto) 9.4 Eos % (Auto) 1.3 L Baso % (Auto) 0.4 Neut # (Auto) 7500 H Lymph # (Auto) 1200 [place] # (Auto) 900 Eos # (Auto) 100 Baso # (Auto) 0 Sodium 140 Potassium 3.4 Chloride 112 H Carbon Dioxide 22 BUN 23 H Creatinine 0.60 L Estimated GFR > 60.0 BUN/Creatinine Ratio 38.3 H Glucose 90 Lactate Calcium 8.1 L Magnesium Troponin I Urine Color Brown Urine Appearance Cloudy Urine pH 6.5 Ur Specific [place] 1.025 Urine Protein 3+ H Urine Glucose (UA) Negative Urine Ketones 2+ H Urine Occult Blood 3+ H Urine Nitrate Positive Urine Bilirubin 1+ H Urine Ictotest Negative Urine Urobilinogen 2.0 H Ur Leukocyte Esterase 2+ H Urine RBC >100/hpf Urine WBC >100/hpf H Urine Bacteria Many (>30) H Ur Culture Indicated? Specimen cultured Ethyl Alcohol Assessment & Plan Assessment & Plan narrative: 1. Urinary tract infection, complicated, acute, present on admission Patient will be initiated on IV ceftriaxone 1 g daily Patient's urine cultures are pending final cultures are negative. A vast microbiology to replace and re-evaluate. Patient will likely need referral to Urology 2. Metabolic encephalopathy, acute, present on admission Patient does not meet sepsis criteria Will provide IV hydration with normal saline at 100 mL/hour 3. Hyperlipidemia, stable, present on admission Continue home dose of atorvastatin 40 mg p.o. daily 4. Gait instability status post ground level fall, will continue with PT OT. The patient does not meet inpatient criteria will change to observation status. FEN: IV normal saline at 100 mL/hour, regular diet, chemistries in the am. VTE Prophylaxis: Enoxaparin 40 mg subQ daily
--- NOTE | 2019-08-02 16:07 | PC.NURSE ---
/LOC: Pt denies and gu sxs such as freq or pain. Is taking fluids w/out problems. Is sl disoriented to time and events. Does know he is in the hospital. Pt found to be changing the settings on his IV pump. Instructed not to do same. He was found in the day doing the same thing again. SThe last time I was here they showed me how to work the pump so I could do it myself. IV pump controls were turned off. Did work w/PT and has sat up in the chair for several hours. Currently is napping in the bed.
[2019-08-02] MEDS: CEFTRIAXONE 1 GM/50 ML FROZ.PIGGY IV (21:38)
[2019-08-02] MEDS: ATORVASTATIN 20 MG TABLET 40 MG PO (21:38)
[2019-08-02] MEDS: SODIUM CHLORIDE 0.9% 1,000 ML 100 ML IV (21:39)
[2019-08-03] VITALS (7 sets, daily range): BP systolic 101–135; BP diastolic 57–75; PULSE 59–73; RESP 15–18; TEMP 36.4–36.8; O2SAT 96–99
--- NOTE | 2019-08-03 00:20 | PC.NURSE ---
Addendum entered by Shawna Olivares R.N. 08/03/19 06:40: Gotten up to bathroom with 2 assist as refused walker and is unsteady on feet. Talked patient into removing undershirt and LIB[employer]IST bathed him and had him put on hospital gown. Was incontinent of urine but also urinated on toilet. Original Note: Patient is oriented to self, birthdate, year and place. Sometimes difficult to determine if patient is being honest in his responses. Has very flat affect. [place] in bilateral ears but has no hearing aids. Breath sounds CTA with RA sat of 99%. HRR. Denies nausea. BT present and abdomen is soft. Has both continent and incontinent of urine; when discussed getting up to bathroom patient states that's why I'm wearing a pad indicating he doesn't need to get up. Body odor smells of urine but patient has been refusing any bathing. Is able to move self in bed. Reportedly gets up with walker and 1 assist but has weakness in all extremities. Denies current pain but states he has chronic low back pain. Fall risk score is high and bed alarm is activated.
[2019-08-03] MEDS: ACETAMINOPHEN 325 MG TABLET 650 MG PO (08:12)
[2019-08-03] MEDS: ENOXAPARIN 40 MG/0.4 ML SYRINGE SUBCUT (08:12)
[2019-08-03] MEDS: ASPIRIN 325 MG TABLET PO (08:12)
--- NOTE | 2019-08-03 10:50 | PT.IPTN ---
Current Diagnoses Dehydration (08/01/19) Metabolic encephalopathy (08/01/19) Urinary tract infection, site not specified (08/01/19) Homelessness (08/01/19) Physical Therapy Treatment Note M2 PT-IP Current Condition Start: 08/02/19 15:58 Freq: NEEDED Status: Active Protocol: Document 08/02/19 13:38 AB (Rec: 08/02/19 16:11 AB [id number]) Physical Therapy Current Condition Current Condition Evaluation Date 08/02/19 Treatment Diagnosis UTI;metabolic encephalopathy; difficulty in walking Onset Date 08/01/19 Precautions Other Precautions falls M3 PT-IP Subjective Start: 08/02/19 15:58 Freq: NEEDED Status: Active Protocol: Document 08/03/19 10:55 GGD (Rec: 08/03/19 12:11 GGD [email or web address]) Subjective Physical Therapy Visit Type Type Treatment Note Visit Start Time 10:35 Visit Stop Time 10:52 Total Visit Minutes 17 Number of CAP SEWER Visits 1 Physical Therapy Visit Comments Patient Comments Pt willing to work with therapy. M4 PT-IP Mobility and Gait Start: 08/02/19 15:58 Freq: NEEDED Status: Active Protocol: Document 08/03/19 10:55 GGD (Rec: 08/03/19 12:11 GGD [id number]) PT-Bed Mobility Assessment Supine to Sit Supine to Sit Standby Assistance Sit to Supine Sit to Supine Standby Assistance PT-Transfer Assessment Sit to and From Stand Sit to and from Stand Contact Guard Assistance,1 Person Assistance,Use of Upper Extremities Equipment Transfer Assistive Device Gait Belt,Front Wheeled Walker Orthotic/Prosthetic Devices or Brace: No Transfers Transfer Destination Chair Transfer Ability Level of Assist Contact Guard Assistance,1 Person Assistance,Use of Upper Extremities Comments Mobility Comments Pt had mild unsteadiness with initial standing balance and braced LE against bed. Gait Assessment Gait Gait Assistance Required: Contact Guard Assist,Minimum Assistance,Total Assistance Distance (Feet) 240 Able to Maintain Weight Bearing Status Yes During Gait Assistive Devices Assistive Device Gait Belt,Straight Cane Orthotic/Prosthetic Devices or Brace: No Gait Deviations General Gait Pattern Antalgic,Decreased Stride Length,Decreased Feet Clearance,Flexed Trunk,Step-to Gait Factors Limiting Gait Function Factors Limiting Gait Function Decreased Activity Tolerance, Decreased Strength,Difficulty Following Directions,Limited Range of Motion,Pain,Poor Balance,Poor Safety Awareness Comments Gait Comments Pt had short shuffle gait pace . M5 PT-IP Objective Assessments Start: 08/02/19 15:58 Freq: NEEDED Status: Active Protocol: Document 08/02/19 13:38 AB (Rec: 08/02/19 16:11 AB [id number]) Orientation Orientation/Cognition Level of Alertness Alert Orientation Name,Age,Place,Situation Language Function Ability No Deficits Noted Safety Awareness Decreased Safety Awareness Memory Description Short Term Impaired Gross Range of Motion Lower Extremity ROM Assessment Within Functional Limits Strength Lower Extremity Strength Assessment Bilaterally Impaired Comments Strength Comments LLE: 3/5 RLE 3+/5 Sensation Assessment Sensation Gross Sensation WNL Muscle Tone Muscle Tone WNL Yes M6 PT-IP Treatment Start: 08/02/19 15:58 Freq: NEEDED Status: Active Protocol: Document 08/02/19 13:38 AB (Rec: 08/02/19 16:11 AB [id number]) Physical Therapy Treatment Education Education Provided Safety M7 PT-IP Assessment and Plan Start: 08/02/19 15:58 Freq: NEEDED Status: Active Protocol: Document 08/03/19 10:55 GGD (Rec: 08/03/19 12:11 GGD [email or web address]) PT Summary Assessment and Plan Summary Assessment Summary Pt improving a little with gait and mobility. He was able to progress gait distance. He did have mild unsteadiness and one LOB with gait with SPC . He is not at his base line mobility and has improved stability with gait with FWW. Frequency of Treatment Frequency Of Treatment Once a Day Treatment Plan Physical Therapy Treatment Plan Bed Mobility Training,Transfer Training,Gait Training, Therapeutic Exercise,Balance Retraining,Discharge Planning, Hot or Cold Pack,Neuromuscular Re-ed,Coordination Retraining ,Manual Therapy Other Recommendations and Next Treatment WILCOX balance test (46), Focus Dynamic gait index(14) or 6 minute walk test(705) to compare to base line on from OPPT Recommendations To Nursing Amount of Assist Needed 1 Person Assist Discharge Recommendations PT Discharge Recommendations SNF Rehab
--- NOTE | 2019-08-03 14:29 | CM.DPNOTE ---
DCP Cont/Late Entry: TC from [facility] yesterday P# [phone], she received the expedited application/ request from KAM Brown and asked if pt was going to stay for an additional 3-5 days? At the time, this RESIDENTIAL CONSTRUCTION INSTRUCTOR explained that pt remained observation and was expected to DC w/in 24-48 hrs. Tracey explained that if this RESIDENTIAL CONSTRUCTION INSTRUCTOR was able to give enough information to screen him in the application could move forward and pt would be contacted by a SWer to schedule the functional assessment. This RESIDENTIAL CONSTRUCTION INSTRUCTOR provided information from pt's chart to include H+P and therapy notes. Tracey further explained that SWer could meet w/pt at a community center or library or other gathering space (?) for assessment. If SWer completes the functional assessment closer to this hospitalization/DC it will be helpful because people have been assisting pt w/ADLs and he can report how much. If he is assessed and has had no help (homeless w/o cg) for 7 days or more, the functional assessment algorithm interprets that as a person not needing any help so he will not qualify for assist. According to MAAME Ag, pt slowly improving and can use a cane today w/ambulation but remains unsteady. UR DAVID Chaves has sent to EHR for review of inpt vs observation status. Although pt would benefit from SNF stay, it is unlikely he will be a candidate d/t his current homelessness. KAM Treviño
--- NOTE | 2019-08-03 18:40 | P.PN_ITS ---
Subjective Subjective Date Patient Seen: 08/03/19 Interval history: The patient is a 74-year-old male who was found down. He had a ground level fall. Upon arrival to the emergency department the patient was found to have urinary tract infection. He was placed on IV antibiotics, and IV fluids. The patient was seen by physical therapy today. He is unable to use a walker as the patient is homeless and lives in his car. They tested him with a cane and he was felt to be somewhat unsteady on his feet and presumably unsafe for discharge overall the patient appears to be making some progress. His white count has improved today. Urine cultures are growing gram-negative rods. Final ID is still pending. Exam Vital Signs (past 8 hours): - 08/03/19 11:39 08/03/19 15:25 Temperature 98.2 F 97.8 F Pulse Rate 59 L 73 Respiratory Rate 18 18 Blood Pressure 107/66 127/66 Pulse Oximetry 97 98 Oxygen Delivery Method Room Air Oxygen Flow Rate 0 Narrative Exam Narrative: Elderly male in no obvious distress Lungs: Clear to auscultate Cardiac exam: Regular rate and rhythm normal S1-S2 Abdomen: Soft nontender nondistended Extremities: No edema Objective Labs Result Diagrams: 08/02/19 07:00 08/02/19 07:00 Assessment & Plan Assessment & Plan narrative: Impression 1. Urinary tract infection, Gram- negative rods growing in the urine. Final identification and sensitivities still pending. Patient has been switched from IV ceftriaxone to p.o. levofloxacin. Will check for sensitivities when available tomorrow. 2. Ground level fall 3. Gait instability, etiology unclear. Patient will continue to work with physical therapy he but likely need to be discharged back to his car. Hyperlipidemia, continue statin Anticipate patient will be discharged tomorrow.
[2019-08-03] MEDS: ATORVASTATIN 20 MG TABLET 40 MG PO (21:52)
[2019-08-04 01:25] VITALS: BP 135/69; PULSE 70; RESP 16; TEMP 36.6; O2SAT 98
[2019-08-04] MEDS: ACETAMINOPHEN 325 MG TABLET 650 MG PO ×2 (03:39→17:54)
--- NOTE | 2019-08-04 04:09 | PC.NURSE ---
Patient oriented except to day of month/day of week. Breath sounds CTA with RA sat of 98%. HRR. Denies nausea. BT present and abdomen is soft. Incontinent of urine so is being checked/changed/pericare given q2h. Is able to turn himself in bed. Out of bed with walker and 1 assist but reportedly has been refusing to use walker and is unsteady with cane. Complains of chronic back pain with movement; medicated with Tylenol.
[2019-08-04 05:40] VITALS: BP 128/77; PULSE 54; RESP 16; TEMP 36.6; O2SAT 97
[2019-08-04 08:00] VITALS: O2SAT 99
[2019-08-04 08:34] VITALS: BP 140/72; PULSE 73; RESP 16; TEMP 36.9; O2SAT 97
[2019-08-04] MEDS: ENOXAPARIN 40 MG/0.4 ML SYRINGE SUBCUT (09:03)
[2019-08-04] MEDS: ASPIRIN 325 MG TABLET PO (09:04)
[2019-08-04] MEDS: SODIUM CHLORIDE 0.9% FLUSH 10 ML IV (09:04)
[2019-08-04] MEDS: levoFLOXacin 250 MG TABLET PO (09:04)
[2019-08-04 11:37] VITALS: BP 118/69; PULSE 66; RESP 17; TEMP 36.4; O2SAT 97
--- NOTE | 2019-08-04 11:51 | PM.DS.1 ---
History of Present Illness History of Present Illness Date Patient Seen: 08/04/19 Time Patient Seen: 11:51 Chief complaint: GLF, FOUND TO HAVE A UTI Narrative: Dion Suresh is a 74-year-old homeless male with a past medical history of having undergone a TURP, chronic urinary incontinence and hyperlipidemia, was in his usual state of health when he was walking to word his truck, apparently fell and was found by a passerby. EMS was called who brought him to the emergency department. Patient states he has chronic urinary incontinence due to having had surgery on his bladder. He states he has chronic hematuria followed by urination. Review of the chart indicates he has been seeing Urology in [place] for this however he has not been to the urologist in quite some time due to the inability to get there. He states that he has problems walking, feels unsteady on his feet and apparently hit his head when he fell today. He denies chest pain, shortness of breath, nausea or vomiting. He does endorse being incontinent of urine denies being incontinent of stool. He states he receives prednisone shot for arthritis. He endorses having depression, is not treated though he has been previously on anti depressants in the past and he states positive for easy bleeding bruising. Discharge Providers Provider Date of admission: 08/01/19 21:01 Discharge Date: 08/04/19 Primary care physician: Katia Frnaces PA-C Consults: 08/01/19 21:37 Consult to Accounts Payable Bookkeeper Routine Comment: Homeless 08/02/19 11:59 Consult to Physical Therapy Evaluate & Treat Comment: Physician Instructions: Evaluate and Treat Discharge provider: Sabine Zaragoza MD Summary Hospital Course Discharge Diagnosis: 1. Urinary tract infection 2. Ground level fall 3. Gait instability/B12 Deficiency 4. Hyperlipidemia Hospital Course: 1. Urinary tract infection, Serratia. This is sensitive to levofloxacin which will be continued for 7 more days as an oral antibiotic outpatient. 2. Ground level fall 3. Gait instability, etiology unclear. He is known to have a B12 deficiency with his last level in May below 300. We will give him an IM dose today. His brain CT was negative for bleed. Physical therapy evaluated him extensively. They have personal knowledge of his capabilities when he was coming in for outpatient physical therapy and indicate that he is not quite to that baseline but very close. They do not anticipate that he would improve much with additional inpatient days. He has a very unstable living situation. He tells me he lives in his truck but that he also has 2 other vehicles and keeps them parked in various commercial parking lots around [facility]. He is not a candidate for easy placed in a long-term facility and does not want to go to one. I would consider it inevitable that he would ultimately fail returning to this homeless situation and be readmitted with some complication. We have not been able, with the assistance of family welfare social work professor, to come up with a discharge plan that is agreeable to him and would be more accommodating of his disability. 4. Hyperlipidemia, continue statin 5. Chronic Urinary Incontinence. Status at Discharge Cognitive/behavioral status at discharge: oriented Functional status at discharge: uses cane/walker Overall status at discharge: patient is progressing back to baseline Time Spent with Patient Time spent: Greater than 30 minutes Exam Vital Signs (past 8 hours): - 08/04/19 05:40 08/04/19 08:34 08/04/19 11:37 Temperature 97.9 F 98.4 F 97.6 F Pulse Rate 54 L 73 66 Respiratory Rate 16 16 17 Blood Pressure 128/77 140/72 118/69 Pulse Oximetry 97 97 97 Oxygen Delivery Method Room Air Oxygen Flow Rate 0 Narrative Exam Narrative: He is alert and oriented x3. He is in no apparent distress. He tells me that he lives in in his truck, currently parked few blocks away from the hospital. He also has a car and another truck that he moves around from time to time. Heart is regular rate and rhythm without murmur. Lungs are clear to auscultation bilaterally Abdomen notable for a small umbilical hernia. Nontender, bowel sounds positive. Extremities have no ankle edema. Objective Labs Result Diagrams: 08/02/19 07:00 08/02/19 07:00 Discharge Plan Discharge Plan Patient Disposition: Home Discharge comment: See Katia Frances next week Continue B12 shots monthly Discharge Med Rec/Prescriptions Prescriptions: New levofloxacin 500 mg tablet 500 mg PO DAILY Qty: 7 RF: 0 Continued aspirin 325 mg tablet 325 mg PO DAILY RF: 0 atorvastatin 40 mg tablet 40 mg PO HS Qty: 90 RF: 2 ergocalciferol (vitamin D2) 50,000 unit capsule 50,000 unit PO QWEEK Qty: 4 RF: 12 No Action (DME) Adult Diapers Qty: 30 RF: 12 (DME) DISABLED PARKING PLACARD Qty: 1 RF: 0 Follow up/Referrals: Katia Frances PA-C [Primary Care Provider] - Discharge Data Primary Care Provider: Katia Frances Attending Provider: Garima Banks Date/Time: 08/01/19 21:01
[2019-08-04] MEDS: CYANOCOBALAMIN 1,000 MCG/ML VIAL 1000 MCG IM (12:33)
--- NOTE | 2019-08-04 14:00 | PT.IPTN ---
Current Diagnoses Dehydration (08/01/19) Metabolic encephalopathy (08/01/19) Urinary tract infection, site not specified (08/01/19) Homelessness (08/01/19) Physical Therapy Treatment Note M2 PT-IP Current Condition Start: 08/02/19 15:58 Freq: NEEDED Status: Active Protocol: Document 08/02/19 13:38 AB (Rec: 08/02/19 16:11 AB [id number]) Physical Therapy Current Condition Current Condition Evaluation Date 08/02/19 Treatment Diagnosis UTI;metabolic encephalopathy; difficulty in walking Onset Date 08/01/19 Precautions Other Precautions falls M3 PT-IP Subjective Start: 08/02/19 15:58 Freq: NEEDED Status: Active Protocol: Document 08/04/19 14:00 GGD (Rec: 08/04/19 15:42 GGD [id number]) Subjective Physical Therapy Visit Type Type Treatment Note Visit Start Time 13:30 Visit Stop Time 15:58 Total Visit Minutes 28 Number of MACHINE TACK PULLER Visits 2 Physical Therapy Visit Comments Patient Comments Pt states he feels unsteady. M4 PT-IP Mobility and Gait Start: 08/02/19 15:58 Freq: NEEDED Status: Active Protocol: Document 08/04/19 14:00 GGD (Rec: 08/04/19 15:42 GGD [id number]) PT-Bed Mobility Assessment Sit to Supine Sit to Supine Standby Assistance PT-Transfer Assessment Sit to and From Stand Sit to and from Stand Standby Assistance,Use of Upper Extremities Equipment Transfer Assistive Device Gait Belt,Straight Cane Orthotic/Prosthetic Devices or Brace: No Transfers Transfer Destination Bed,Wheelchair Transfer Ability Level of Assist Contact Guard Assistance,1 Person Assistance,Use of Upper Extremities Gait Assessment Gait Gait Assistance Required: Standby Assistance,Contact Guard Assist Distance (Feet) 600 Able to Maintain Weight Bearing Status Yes During Gait Assistive Devices Assistive Device None,Gait Belt,Straight Cane Orthotic/Prosthetic Devices or Brace: No Gait Deviations General Gait Pattern Antalgic,Decreased Stride Length,Decreased Feet Clearance,Flexed Trunk,Step-to Gait Factors Limiting Gait Function Factors Limiting Gait Function Decreased Activity Tolerance, Decreased Strength,Difficulty Following Directions,Limited Range of Motion,Pain,Poor Balance,Poor Safety Awareness Comments Gait Comments ambulated with SPC x 80 feet and then without AD. Stair Climbing Assessment Evaluation Level of Assist On Stairs Standby Assistance Devices Stair Climbing Assistive Devices Left Railing,Right Railing Technique/Endurance Stair Climbing Direction Ascend and Descend Stair Climbing Technique Step Over Step Number of Steps Climbed 3 Stair Climbing Set # Repetitions (reps) 1 Functional Assessments Functional Tests Dynamic Gait Index 12 6 Minute Walk Test 504 M5 PT-IP Objective Assessments Start: 08/02/19 15:58 Freq: NEEDED Status: Active Protocol: Document 08/02/19 13:38 AB (Rec: 08/02/19 16:11 AB [id number]) Orientation Orientation/Cognition Level of Alertness Alert Orientation Name,Age,Place,Situation Language Function Ability No Deficits Noted Safety Awareness Decreased Safety Awareness Memory Description Short Term Impaired Gross Range of Motion Lower Extremity ROM Assessment Within Functional Limits Strength Lower Extremity Strength Assessment Bilaterally Impaired Comments Strength Comments LLE: 3/5 RLE 3+/5 Sensation Assessment Sensation Gross Sensation WNL Muscle Tone Muscle Tone WNL Yes M6 PT-IP Treatment Start: 08/02/19 15:58 Freq: NEEDED Status: Active Protocol: Document 08/02/19 13:38 AB (Rec: 08/02/19 16:11 AB [id number]) Physical Therapy Treatment Education Education Provided Safety M7 PT-IP Assessment and Plan Start: 08/02/19 15:58 Freq: NEEDED Status: Active Protocol: Document 08/04/19 14:00 GGD (Rec: 08/04/19 15:42 GGD [id number]) PT Summary Assessment and Plan Summary Assessment Summary Pt improved with initial standing balance. He was able to ambulate without AD without LOB. He did have short shuffle gait pattern. Based on DGI score of 12/24 he is a high fall risk, but near base line of 14/24. Pt would benefit from skilled therapy to improve balance and gait. Frequency of Treatment Frequency Of Treatment Once a Day Treatment Plan Physical Therapy Treatment Plan Bed Mobility Training,Transfer Training,Gait Training, Therapeutic Exercise,Balance Retraining,Discharge Planning, Hot or Cold Pack,Neuromuscular Re-ed,Coordination Retraining ,Manual Therapy Recommendations To Nursing Amount of Assist Needed 1 Person Assist Discharge Recommendations PT Discharge Recommendations SNF Rehab
[2019-08-04 15:00] VITALS: O2SAT 97
--- NOTE | 2019-08-04 17:10 | CM.DPNOTE ---
DCP/continued: Received notification from MD that patient is medically stable for discharge. Reviewed notes. Patient currently resides in his automobile. Faxed expedited [employer] application as instructed. Spoke with PT today. They saw patient and report that he is at his primary baseline. Met with patient and explained that he is medically stable for discharge today. Patient reports that he will return to his truck in the [employer] parking lot. Patient provided with list of shelters and encouraged to follow up for outpatient services. Patient reports that he will? Attempted to arrange transport via Medicaid however, they will not come transport less than 1 mile. Therefore, RN given cab voucher for [place]. CM/Knitter Helper Leslye notified. SENIOR TERADATA DEVELOPER asked RN to obtain copy with estimated cost and slip under CM door after patient leaves. She is agreeable. P: Patient to return to his automobile today. Patient provided with community resources, taxi voucher, [employer] application faxed and scripts arranged through [facility]. KAM Cote
--- NOTE | 2019-08-04 19:52 | PC.NURSE ---
Discharge Note- Patient discharged. Reviewed discharge paperwork with patient and signed. patients personal belongings packed up and room rechecked. Called antibiotic Rx to [facility] and picked up Rx for patient. Patient taken to taxi waiting at ER entrance with all personal belongings at 1815.
--- NOTE | 2019-08-25 12:14 | PC.NURSE ---
late entry: Rocephin stopped 08/02 9667
== END 2019-08-04 18:15 | disposition home or self-care (01) ==
LOC: ED 20:44 → AC 21:04
PROVIDERS: Admitting Provider Nurse Practitioner Family; Emergency Provider Emergency Medicine; PCP Physician Assistant; Visit Provider Nurse Practitioner Family
DX: N39.0 Urinary tract infection, site not specified (principal); R53.1 Weakness; G93.41 Metabolic encephalopathy; Z59.0 Homelessness; M54.42 Lumbago with sciatica, left side; I10 Essential (primary) hypertension; F17.210 Nicotine dependence, cigarettes, uncomplicated; E78.5 Hyperlipidemia, unspecified; W01.198A Fall on same level from slipping, tripping and stumbling with subsequent striking against other object, initial encounter; N39.498 Other specified urinary incontinence; N02.9 Recurrent and persistent hematuria with unspecified morphologic changes; E53.8 Deficiency of other specified B group vitamins
CPT/HCPCS: 36415; 70450; 71045; 80048; 80320; 81001; 83605; 83735; 84484; 85025; 87040; 87077; 87086; 87186; 96361; 96365; 96366; 96372; 96375; 97116; 97161; 97530; 99283; 99284; G0378; J1650; J2405; J3420

== ENCOUNTER 2019-08-11 15:06 | Emergency (ER) | payer MEDICARE, MEDICAID, SELFPAY ==
[2019-08-11 15:05] VITALS: BP 133/77; PULSE 109; RESP 22; TEMP 37.7; O2SAT 94
--- NOTE | 2019-08-11 15:19 | DI.RAD.S_ITS ---
PROCEDURE: XR CHEST 1V INDICATIONS: confusion TECHNIQUE: One view of the chest was acquired. COMPARISON: [facility], CT, CT HEAD/BRAIN WO CON, 08/11/2019, 15:32. [facility], CR, XR CHEST 1V, 08/01/2019, 19:34. FINDINGS: Surgical changes and devices: None. Lungs and pleura: An incomplete inspiratory result is noted, causing a crowded appearance to the lung markings. No focal infiltrates are seen. No pneumothorax or significant pleural effusions are seen. Mediastinum: The cardiac contours are within normal limits. The aorta demonstrates calcification and tortuosity. Bones and chest wall: Age-appropriate bony degenerative changes are seen. No suspicious bony lesions. Overlying soft tissues appear unremarkable. IMPRESSION: Limited portable chest examination, without a significant cardiopulmonary abnormality identified. Dictated by: Jm Madera M.D. on 08/11/2019 at 14:48 Approved by: Jm Madera M.D. on 08/11/2019 at 14:49
--- NOTE | 2019-08-11 15:19 | DI.CT.S_ITS ---
PROCEDURE: CT HEAD/BRAIN WO CON INDICATIONS: confusion TECHNIQUE: Noncontrast 4.5 mm thick angled axial sections acquired from the foramen magnum to the vertex, with coronal and sagittal reformats. For radiation dose reduction, the following was used: automated exposure control, adjustment of mA and/or kV according to patient size. COMPARISON: [facility], CR, XR CHEST 1V, 08/11/2019, 15:24. [facility], CT, CT HEAD/BRAIN WO CON, 08/01/2019, 19:48. FINDINGS: Image quality: Excellent. CSF spaces: Basal cisterns are patent. No extra-axial fluid collections. The ventricles are symmetric in size and shape. Brain: No intracranial bleeds or masses. There is cerebral volume loss for age, with resultant ventricular and sulcal prominence. There are periventricular and deep white matter chronic small vessel ischemic changes. There is intracranial internal carotid artery atherosclerosis. Skull and face: Calvarium and visualized facial bones appear intact, without suspicious lesions. Sinuses: Visualized sinuses and mastoids are clear. IMPRESSION: Normal intracranial study for age, without an imaging explanation found for the patient's presenting symptoms. Dictated by: Jm Madera M.D. on 08/11/2019 at 14:47 Approved by: Jm Madera M.D. on 08/11/2019 at 14:48
[2019-08-11 15:28] LABS: Add Manual Diff / Slide Review NO; Basophils Absolute Auto 100 /uL (0-100); Basophils Percent Auto 0.6 % (0-2); Eosinophils Absolute Auto 0 /uL (0-450); Eosinophils Percent Auto 0.1 % (2-4); Hematocrit 45.6 % (41-53); Hemoglobin 15.3 g/dL (13.5-17.5); Lymphocytes Absolute Auto 1400 /uL (1100-4500); Lymphocytes Percent Auto 11.7 % (25-40); Mean Corpuscular HGB Conc 33.6 % (30-36); Mean Corpuscular Hemoglobin 31.6 PG (26-34); Mean Corpuscular Volume 94.1 fL (80-100); Monocytes Absolute Auto 900 /uL (0-900); Monocytes Percent Auto 7.1 % (3-14); Neutrophils Absolute Auto 9800 /uL (1500-7000); Neutrophils Percent Auto 80.5 % (50-75); Platelet Count 374 X10^3/uL (150-400); Red Blood Cell Count 4.85 X10^6/uL (4.5-5.9); Red Cell Distribution Width 13.6 % (11.6-14.8); White Blood Cell Count 12.2 X10^3/uL (4.5-11.0)
[2019-08-11 15:41] LABS: Prothrombin Time 12.1 SECONDS (10.1-12.7)
[2019-08-11 15:44] LABS: PTT Partial Thromboplastin Tim 27 SECONDS (26.4-36.2)
[2019-08-11 15:45] LABS: Lactate (Lactic Acid) 2.6 mmol/L (0.7-2.1)
[2019-08-11 15:48] LABS: Alanine Aminotransferase 41 IU/L (21-72); Albumin Globulin Ratio 1.2 (1.0-2.8); Alkaline Phosphatase 84 U/L (38-126); Aspartate Aminotransferase 44 IU/L (17-59); BUN Creatinine Ratio 37.5 (6-22); Blood Urea Nitrogen 30 mg/dL (9-20); Calcium 9.1 mg/dL (8.4-10.2); Carbon Dioxide 19 mmol/L (22-32); Chloride 108 mmol/L (98-107); Estimated Glomerular Filt Rate > 60.0 mL/min (>60); Ethanol (ETOH) < 10 mg/dL; Globulin 3.3 g/dL (1.7-4.1); Glucose 126 mg/dL (80-110); HEMOLYSIS 21 (0-50); Potassium 3.7 mmol/L (3.4-5.1); Sodium 142 mmol/L (137-145); Total Protein 7.3 g/dL (6.3-8.2)
[2019-08-11 16:00] LABS: Troponin I < 0.012 ng/mL (0.01-0.034)
[2019-08-11 16:01] VITALS: BP 128/70; PULSE 93; RESP 22; O2SAT 95
[2019-08-11 16:04] LABS: Prolactin 19.6 ng/mL (3.7-17.9)
[2019-08-11 16:33] LABS: Thyroid Stimulating Hormone 0.82 uIU/mL (0.47-4.68)
--- NOTE | 2019-08-11 16:48 | ED_ITS ---
HPI - Weakness General Chief complaint: Weakness Stated complaint: Confusion Time Seen by Provider: 08/11/19 17:03 Source: patient and old records reviewed Limitations: no limitations History of Present Illness HPI Narrative: Patient is a 74-year-old homeless male presenting with urinary incontinence, he is homeless he lives in his cars. He was pulled over by the police today for erratically irregular driving. EMS was called and he was transported to the hospital for further evaluation. He was admitted to the hospital August 01 through August 04 for dehydration. He has chronic urinary incontinence from a TURP, he was placed on Levaquin for 7 more days. He says that he is actually taking his antibiotic but he did not yet take it today. Related Data Home Medications Medication Instructions Recorded Confirmed aspirin 325 mg tablet 325 mg PO DAILY 02/23/19 08/11/19 atorvastatin 40 mg PO BEDTIME 08/11/19 08/11/19 Previous Rx's Medication Instructions Recorded Adult Diapers #30 each 08/10/18 DISABLED PARKING PLACARD #1 ea 09/27/18 ergocalciferol (vitamin D2) 50,000 50,000 unit PO QWEEK #4 cap 06/28/19 unit capsule levofloxacin 500 mg PO DAILY #7 tab 08/04/19 Allergies Allergy/AdvReac Type Severity Reaction Status Date / Time No Known Drug Allergies Allergy Verified 08/01/19 15:40 [facility] Medical History Arthritis (Chronic) BPH (benign prostatic hyperplasia) (Chronic) Colon polyps (Resolved) Depression (Chronic) Hernia (Resolved) History of alcohol abuse (Resolved 1980) Hyperlipemia (Chronic) Hypertension (Chronic) Osteopenia (Chronic) Osteoporosis (Chronic) Shoulder pain (Resolved) Urinary retention (Resolved ~04/2017) Surgical History History of cataract removal with insertion of prosthetic lens (02/2016) Hx of cystoscopy (Acute 04/2017) Hx of transurethral resection of prostate (Resolved 04/2017) Status post colectomy (2010) Status post hernia repair (05/2013) Family History Father Alcohol abuse Smoker Mother Osteoporosis Social History household members: none Smoking Status: Never smoker second hand exposure: No alcohol intake: former substance use type: does not use Family History Father Alcohol abuse Smoker Mother Osteoporosis Social History household members: none Smoking Status: Never smoker second hand exposure: No alcohol intake: former substance use type: does not use Exam Initial Vital Signs Initial Vital Signs: Vital Signs Temperature 99.9 F H 08/11/19 15:05 Pulse Rate 109 H 08/11/19 15:05 Respiratory Rate 22 08/11/19 15:05 Blood Pressure 133/77 08/11/19 15:05 Pulse Oximetry 94 08/11/19 15:05 GENERAL: Appears older than stated age for hygiene smells of urinary incontinence HEENT: Head atraumatic,EOMI, pupils reactive, face symmetric, [moist] mucous membranes [EARS:] [Tympanic membranes visualized, no erythema or bulging, no hemotympanum] [PHARYNX:] [No erythema, no tonsillar exudate, no cervical lymphadenopathy] CARDIOVASCULAR: Regular rate and rhythm without murmurs, rubs or gallops. RESPIRATORY: Breath sounds equal bilaterally, no wheezes rales or rhonchi. ABDOMEN: Soft, nontender. Normoactive bowel sounds all 4 quadrants. No guarding or rebound. EXTREMITIES: Normal range of motion, no clubbing or edema. Neurovascularly intact NEUROLOGICAL: Alert and oriented x4.Normal gait and speech. Cranial nerves II th rough XII grossly intact. SKIN: Warm, dry, no laceration, no petechiae, no rashes or lesions. Course Orders Ordered: ED Orders 08/11/19 15:15 Complete Blood Count AUTO DIFF Stat Comprehensive Metabolic Panel Stat Ethanol (ETOH) Stat Lactate (Lactic Acid) Stat Partial Thromboplastin Time Stat Prolactin Stat Prothrombin Time INR Stat Thyroid Stimulating Hormone Stat Troponin I Stat 08/11/19 15:19 CT head/brain wo con Stat XR chest 1V Stat Urine Culture Stat Urine Drug Screen, Rapid Stat Sodium Chloride (Normal Saline 0.9%) 1,000 mls @ 150 mls/hr IV CONT SKY Last Admin: 08/11/19 16:51 Dose: 150 mls/hr Documented by: CHARLIE Vital Signs Vital signs: Vital Signs - 8 hr 08/11/19 15:05 08/11/19 16:01 08/11/19 16:56 Temperature 99.9 F H Pulse Rate 109 H 93 H 90 Respiratory Rate 22 22 18 Blood Pressure 133/77 Blood Pressure [Right Arm] 128/70 156/96 H Pulse Oximetry 94 95 96 08/11/19 17:15 Temperature Pulse Rate 98 H Respiratory Rate 22 Blood Pressure Blood Pressure [Right Arm] 130/78 Pulse Oximetry 97 MDM - Weakness Lab Data Result diagrams: 08/11/19 15:15 08/11/19 15:15 Labs: Lab Results 08/11/19 08/11/19 08/11/19 Range/Units 15:15 15:15 15:15 WBC 12.2 H (4.5-11.0) X10^3/uL RBC 4.85 (4.5-5.9) X10^6/uL Hgb 15.3 (13.5-17.5) g/dL Hct 45.6 (41-53) % MCV 94.1 (80-100) fL MCH 31.6 (26-34) PG MCHC 33.6 (30-36) % RDW 13.6 (11.6-14.8) % Plt Count 374 (150-400) X10^3/uL Neut % (Auto) 80.5 H (50-75) % Lymph % (Auto) 11.7 L (25-40) % Gladwin % (Auto) 7.1 (3-14) % Eos % (Auto) 0.1 L (2-4) % Baso % (Auto) 0.6 (0-2) % Neut # (Auto) 9800 H (2131-2448) /uL Lymph # (Auto) 1400 (8142-5793) /uL Gladwin # (Auto) 900 (0-900) /uL Eos # (Auto) 0 (0-450) /uL Baso # (Auto) 100 (0-100) /uL PT 12.1 (10.1-12.7) SECONDS INR 1.0 (0.9-1.3) APTT 27 (26.4-36.2) SECONDS Sodium 142 (137-145) mmol/L Potassium 3.7 (3.4-5.1) mmol/L Chloride 108 H (98-107) mmol/L Carbon Dioxide 19 L (22-32) mmol/L BUN 30 H (9-20) mg/dL Creatinine 0.80 (0.66-1.25) mg/dL Estimated GFR > 60.0 (>60) mL/min BUN/Creatinine Ratio 37.5 H (6-22) Glucose 126 H (80-110) mg/dL Lactate (0.7-2.1) mmol/L Calcium 9.1 (8.4-10.2) mg/dL Total Bilirubin 1.0 (0.2-1.3) mg/dL AST 44 (17-59) IU/L ALT 41 (21-72) IU/L Alkaline Phosphatase 84 (38-126) U/L Troponin I < 0.012 (0.01-0.034) ng/mL Total Protein 7.3 (6.3-8.2) g/dL Albumin 4.0 (3.5-5.0) g/dL Globulin 3.3 (1.7-4.1) g/dL Albumin/Globulin Ratio 1.2 (1.0-2.8) TSH (0.47-4.68) uIU/mL Prolactin 19.6 H (3.7-17.9) ng/mL Ethyl Alcohol < 10 ( - 10) mg/dL 08/11/19 08/11/19 Range/Units 15:15 15:15 WBC (4.5-11.0) X10^3/uL RBC (4.5-5.9) X10^6/uL Hgb (13.5-17.5) g/dL Hct (41-53) % MCV (80-100) fL MCH (26-34) PG MCHC (30-36) % RDW (11.6-14.8) % Plt Count (150-400) X10^3/uL Neut % (Auto) (50-75) % Lymph % (Auto) (25-40) % Gladwin % (Auto) (3-14) % Eos % (Auto) (2-4) % Baso % (Auto) (0-2) % Neut # (Auto) (5682-1322) /uL Lymph # (Auto) (9614-3145) /uL Gladwin # (Auto) (0-900) /uL Eos # (Auto) (0-450) /uL Baso # (Auto) (0-100) /uL PT (10.1-12.7) SECONDS INR (0.9-1.3) APTT (26.4-36.2) SECONDS Sodium (137-145) mmol/L Potassium (3.4-5.1) mmol/L Chloride (98-107) mmol/L Carbon Dioxide (22-32) mmol/L BUN (9-20) mg/dL Creatinine (0.66-1.25) mg/dL Estimated GFR (>60) mL/min BUN/Creatinine Ratio (6-22) Glucose (80-110) mg/dL Lactate 2.6 H (0.7-2.1) mmol/L Calcium (8.4-10.2) mg/dL Total Bilirubin (0.2-1.3) mg/dL AST (17-59) IU/L ALT (21-72) IU/L Alkaline Phosphatase (38-126) U/L Troponin I (0.01-0.034) ng/mL Total Protein (6.3-8.2) g/dL Albumin (3.5-5.0) g/dL Globulin (1.7-4.1) g/dL Albumin/Globulin Ratio (1.0-2.8) TSH 0.82 (0.47-4.68) uIU/mL Prolactin (3.7-17.9) ng/mL Ethyl Alcohol ( - 10) mg/dL Discharge Plan Departure Prescriptions: No Action (DME) Adult Diapers Qty: 30 RF: 12 aspirin 325 mg tablet 325 mg PO DAILY RF: 0 (DME) DISABLED PARKING PLACARD Qty: 1 RF: 0 ergocalciferol (vitamin D2) 50,000 unit capsule 50,000 unit PO QWEEK Qty: 4 RF: 12 levofloxacin 500 mg tablet 500 mg PO DAILY Qty: 7 RF: 0 atorvastatin 40 mg tablet 40 mg PO BEDTIME RF: 0
[2019-08-11] MEDS: SODIUM CHLORIDE 0.9% 1,000 ML 150 ML IV (16:51)
[2019-08-11 16:56] VITALS: BP 156/96; PULSE 90; RESP 18; O2SAT 96
[2019-08-11 17:15] VITALS: BP 130/78; PULSE 98; RESP 22; O2SAT 97
[2019-08-11 17:22] LABS: Reflexed Lactate in 2 Hours Y
[2019-08-11] MEDS: levoFLOXacin 250 MG TABLET 500 MG PO (18:19)
--- NOTE | 2019-08-11 18:24 | PC.NURSE ---
significant concern voiced by Friend Elmer (intermediate designer friend and media planner) at patients inability to care for self. Pt is unsteady and has impaired ability to complete adls. This is not a new problem and pt verbalizes wish to leave hospital. Pt waived HIPPA concerns in regard to Elmer so that Elmer may speak with the administrator social welfare available on Wednesday or Wednesday to discuss concerns. Given multiple resources.
[2019-08-11 18:27] VITALS: BP 152/78; PULSE 90; RESP 18; O2SAT 98
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
== END 2019-08-11 18:33 | disposition home or self-care (01) ==
PROVIDERS: Emergency Medicine; Emergency Provider Emergency Medicine; PCP Physician Assistant
DX: R32 Unspecified urinary incontinence (principal); R41.0 Disorientation, unspecified
CPT/HCPCS: 36415; 36591; 70450; 71045; 80053; 80320; 83605; 84146; 84443; 84484; 85025; 85610; 85730; 93005; 96360; 99283; 99285

== ENCOUNTER 2019-08-11 20:36 | Emergency (ER) | payer MEDICARE, MEDICAID, SELFPAY ==
[2019-08-11 20:50] VITALS: BP 118/79; PULSE 109; RESP 19; TEMP 36.9; O2SAT 98; BMI 22.1
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
[2019-08-11] MEDS: ACETAMINOPHEN 325 MG TABLET 650 MG PO (21:50)
[2019-08-11 22:23] LABS: Ethanol (ETOH) < 10 mg/dL
[2019-08-12] VITALS (10 sets, daily range): BP systolic 104–144; BP diastolic 56–81; PULSE 82–97; RESP 16–18; O2SAT 96–100
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
--- NOTE | 2019-08-12 06:00 | PC.NURSE ---
RN in room attempting to ambulate pt, pt too weak to ambulate safely.
[2019-08-12 09:04] LABS: Bacteria Urine None Seen
[2019-08-12 09:13] LABS: Appearance Urine UA CLOUDY; Bilirubin Urine UA NEGATIVE (NEGATIVE); Color Urine UA BROWN; Glucose Urine UA NEGATIVE (Negative); Ketones Urine UA 1+ (NEGATIVE); Leukocyte Esterase Urine UA 1+ (NEGATIVE); Nitrite Urine UA NEGATIVE (Negative); Occult Blood Urine UA 3+ (Negative); Protein Urine UA 1+ (Negative); Specific Gravity Urine UA >=1.030 (1.000-1.035)
[2019-08-12 09:14] LABS: Culture Indicated Urine Specimen Cultured; RBC Urine >100/HPF (0-5/HPF); WBC Urine >100/HPF (0-5/HPF)
--- NOTE | 2019-08-12 10:13 | PC.NURSE ---
Late entry. Skin in kami area is excoriated from sitting in urine and feces. States lives in his car/truck and doesnt have ability to get to facility. Very weak and shakey with transfers.
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
--- NOTE | 2019-08-12 11:17 | PC.NURSE ---
PT at bedside upon obtaining care. Physical therapist reports patient's gait is at baseline for him, a slow shuffle. Patient ambulates better with walker than cane.
[2019-08-12] MEDS: cephALEXin 250 MG CAPSULE 500 MG PO (12:19)
--- NOTE | 2019-08-12 13:32 | PC.NURSE ---
In depth conversation with patient regarding next steps. turn out worker Estefani at bedside and connected with patients friend Fransisco. Patient provided community and housing information to call Debbie on wednesday. Patient provided voucher to [facility].
--- NOTE | 2019-08-12 13:50 | PC.NURSE ---
Patient required significant assistance getting dressed and into a wheelchair for discharge how many falls do I have before I can come back in. Just get my room ready Patient transferred from wheelchair to cab with one person standby assistance.
--- NOTE | 2019-08-12 14:58 | CM.SWNOTE ---
Social Work Note: This PARTY DIRECTOR requested to speak w/Angel in ER Rm 07, he does not meet medical criteria to be admitted obs and will be DC from the ER back to his car/truck at [facility]. Reviewed recent SW notes from Angel's obs stay, after which he DC back to his truck. Met w/Angel, explained SW role. Angel A+O although easily distracted and is not capable today of answering my questions about Home and Community Services f/u ? Angel states he has a friend Felix that helps him out. Felix P# [phone]. Placed call to Felix and he confirmed he has helped Angel out because he doesn't know anyone else who does. Felix has Angel's truck and can bring it to the [facility] parking lot once he is DC. He explains that Angel has been in really bad shape and he is surprised he is being DC from the hospital, this PARTY DIRECTOR explained that Angel needs penitentiary housing and care, not a medical bed. Felix agrees. Requested that Felix sit with Angel sometime M-F and call [facility] Community Services at P# [phone] to ask about his LTC Medicaid application and arrange a time for his functional assessment to assist getting Angel one step closer to terminal block assembler care. Felix agreeable to this and will attempt. Felix has questions about getting a guardian for Angel and this PARTY DIRECTOR said that was a very good question but this only happens w/court involvement. Strongly encouraged Felix to go to the [facility] to ask for help in answering some of his questions on behalf of Angel. P: DC back to his truck. DAVID salinas Angel will end up back in the ER soon since he required 2 people to get him from the bed to a w/c. Angel has a walker in his Truck which he will have access too after Felix brings to [facility] at approx 1600 today. [employer] arranged to take Angel to [facility], taxi voucher completed and signed by this PARTY DIRECTOR. KAM Treviño
== END 2019-08-12 13:35 | disposition home or self-care (01) ==
PROVIDERS: Emergency Medicine; Emergency Provider Emergency Medicine; PCP Physician Assistant
DX: R32 Unspecified urinary incontinence (principal); R41.0 Disorientation, unspecified
CPT/HCPCS: 36415; 70450; 71045; 80053; 80320; 81001; 83605; 84146; 84443; 84484; 85025; 85610; 85730; 87077; 87086; 87185; 87186; 93005; 96360; 97162; 99285

== ENCOUNTER 2019-08-14 14:24 | Emergency (ER) | payer MEDICARE, MEDICAID, SELFPAY ==
[2019-08-14 14:36] VITALS: PULSE 92; RESP 20; TEMP 36.4; O2SAT 98
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
--- NOTE | 2019-08-14 18:43 | PC.NURSE ---
pt arrived saturated with urine. pt sat in waiting area unable to express incontinence issue, leaving couch and chairs saturated with urine. another patient sat in the saturated chairs.
[2019-08-14 19:07] VITALS: BP 127/74; PULSE 87; RESP 16
== END 2019-08-14 19:08 | disposition home or self-care (01) ==
PROVIDERS: Emergency Provider Nurse Practitioner; PCP Physician Assistant
DX: R32 Unspecified urinary incontinence (principal); Z59.0 Homelessness
CPT/HCPCS: 99282

== ENCOUNTER 2019-09-11 07:11 | Emergency (ER) | payer MEDICARE, MEDICAID, SELFPAY ==
[2019-09-11 07:18] VITALS: BP 127/74; PULSE 106; RESP 18; TEMP 36.8; O2SAT 96; BMI 21.4
--- NOTE | 2019-09-11 07:25 | ED.RECABL ---
HPI - Recheck/Abnormal Lab/Rx General Chief Complaint: Recheck/Abnormal Lab/Rx Stated Complaint: No stated complaint Time Seen by Provider: 09/11/19 07:15 Source: patient and EMS Mode of arrival: EMS Limitations: no limitations History of Present Illness HPI narrative: Patient is a 74-year-old male. He is well known to myself in this emergency department. He is homeless. He has been seen here in the ER multiple times in the past for various issues. This morning he was in the parking lot of [email or web address] staying in his truck. [email or web address] contacted the police who then contacted EMS. It was reported that the patient did want to be transported to the emergency department. Initially he had no complaints however during my conversations with him he states that he has had continued issues with what is essentially urinary incontinence. He states that he cannot control his urine. He has had this for many years. He states that he has had a Eagle catheter in the past but does not want a Eagle catheter now. He states that it is too difficult to take care of a catheter being homeless. He states that he understands that he smells like urine. He states that he understands that this causes people to have concern about him. He does have a primary doctor however has not seen her in some time and does not have a current appointment. He is complaining of a rash around his genitals and his buttocks he states he understands this is because he sits in urine. He states that his last meal was yesterday. He states that he does have a ?brother ?to his tried to help him get into a ?old folks home ?but he does admit that the cost of this is somewhat prohibitive. He denies any drug or alcohol use. Related Data Home Medications Medication Instructions Recorded Confirmed aspirin 325 mg tablet 325 mg PO DAILY 02/23/19 08/15/19 Previous Rx's Medication Instructions Recorded Adult Diapers #30 each 08/10/18 DISABLED PARKING PLACARD #1 ea 09/27/18 ergocalciferol (vitamin D2) 50,000 50,000 unit PO QWEEK #4 cap 06/28/19 unit capsule cephalexin [Keflex] 500 mg PO BID #20 cap 08/12/19 atorvastatin 40 mg tablet 40 mg PO BEDTIME #90 tab 08/22/19 Allergies Allergy/AdvReac Type Severity Reaction Status Date / Time No Known Drug Allergies Allergy Verified 09/11/19 07:18 Review of Systems Constitutional Constitutional: Denies fever(s) and Denies headache(s) ENT Ears, Nose, Mouth, and Throat: Denies headache(s) Cardiovascular Cardiovascular: Denies chest pain and Denies dyspnea Respiratory Respiratory: Denies dyspnea Gastrointestinal Gastrointestinal: Denies abdominal pain Genitourinary Genitourinary: Reports urinary incontinence Integumentary/Breasts Comments: Rash and skin breakdown on his genitals and buttocks Neurologic Neurologic: Denies behavioral changes and Denies headache(s) Psychiatric Psychiatric: Denies behavioral changes Hematologic/Lymphatic Hematologic/Lymphatic: Denies easy bleeding and Denies easy bruising Patient History Medical/Surgical History Medical History Arthritis (Chronic) BPH (benign prostatic hyperplasia) (Chronic) Colon polyps (Resolved) Depression (Chronic) Hernia (Resolved) History of alcohol abuse (Resolved 1980) Hyperlipemia (Chronic) Hypertension (Chronic) Osteopenia (Chronic) Osteoporosis (Chronic) Shoulder pain (Resolved) Urinary retention (Resolved ~04/2017) Surgical History History of cataract removal with insertion of prosthetic lens (02/2016) Hx of cystoscopy (Acute 04/2017) Hx of transurethral resection of prostate (Resolved 04/2017) Status post colectomy (2010) Status post hernia repair (05/2013) Family History Father Alcohol abuse Smoker Mother Osteoporosis Social History household members: none Smoking Status: Never smoker second hand exposure: No alcohol intake: former substance use type: does not use Family/Social History Social History household members: none Smoking Status: Never smoker second hand exposure: No alcohol intake: former substance use type: does not use alcohol intake frequency: 0-2 drinks per day Substance Use Type: does not use Exam Initial Vital Signs Initial Vital Signs: Vital Signs Temperature 98.2 F 09/11/19 07:18 Pulse Rate 106 H 09/11/19 07:18 Respiratory Rate 18 09/11/19 07:18 Blood Pressure 127/74 10/14/19 07:18 Pulse Oximetry 96 09/11/19 07:18 HENMT Head: normal to inspection and normocephalic Resp Effort & Inspection: normal respiratory effort Cardio Rate: regular rate Skin Other: The skin on the scrotum and on the tip of the penis his somewhat red. There is no open ulceration. There some lichenification. Skin around the buttocks appears well without any open wounds. Neuro General: alert, awake and oriented x3 Cognition: normal cognition Speech: speech normal Gait: normal gait Extrem General: normal to inspection and capillary refill normal Psych Appearance: grossly normal and well kempt Course Orders Ordered: ED Orders 09/11/19 07:24 Consult to SHEARER SCREEN MEASURER AND TRIMMER - Director Of Hotel Stat 09/11/19 07:48 Urine Microscopic Stat Vital Signs Vital signs: Vital Signs - 8 hr 09/11/19 07:18 Temperature 98.2 F Pulse Rate 106 H Respiratory Rate 18 Blood Pressure 127/74 Pulse Oximetry 96 [facility] - Recheck/Abnormal Lab/Rx Lab Data Attestation: I reviewed the patient's lab results. Labs: Lab Results 09/11/19 Range/Units 07:48 Urine RBC >100/hpf (0-5/HPF) Urine WBC >100/hpf H (0-5/HPF) Urine Bacteria Many (>30) H (None) Urine Yeast 1-5/hpf H (None) Ur Culture Indicated? Specimen cultured Urine Dip Bedside Urine Glucose Negative Bedside Urine Bilirubin - Negative Bedside Urine Ketone - Negative Urine Specific [place] 1.015 Bedside Urine Occult Blood +++ Bedside Urine pH 6.0 Bedside Urine Protein + 30 Bedside Urine Urobilinogen - Negative Bedside Urine Nitrite - Negative Bedside Urine Leukocytes +++ 500 Esterase MDM Narrative Medical decision making narrative: 74-year-old male who is well known to myself in this emergency department. He arrives with no specific complaints. He is incontinent of urine. Has been incontinent of urine for some time now. Has no dysuria. No fevers. His urinalysis does show bacteria and white blood cells however given his lack of symptoms and also his chronic urinary incontinence I feel that waiting until a culture has resulted in order to obtain sensitivities so that the patient is placed on appropriate antibiotics initially is warranted. Given his homeless status I feel that giving him a prescription for antibiotics now and then potentially having to change them later would cause him more confusion also causing more money and potentially cause him to not take the appropriate antibiotics. He is nontoxic appearing. The skin changes on his perineum/scrotum/penis are consistent with panic moisture exposure most likely from his urinary incontinence. We did discuss that he should use inexpensive barrier creams that he could buy [id number]. Also informed him that he should change his adult diapers often. He did expressed understanding of this. Patient was given a chance to shower. He was also given a change of clothes. His clothes were also washed while he was in the department. He was seen by social work. Social work filled out a [employer] form for long-term placement. He does get social security. Has also been reporting the past that he has food stamps. Patient was alert and oriented x3 and in my opinion has the capacity to make decisions. We were also able to set up an appointment with him at his primary provider's office next Wednesday at 1130 hours. The patient was informed of this. I do not feel that the patient meets criteria for grave disability. He was informed that he could return to the emergency department if needed. He does have a cell phone. It was tested by social work and the phone number listed is correct. Discharge Plan Departure Patient Disposition: Home Clinical Impression: Urinary incontinence Qualifiers: Urinary Incontinence type: unspecified incontinence Qualified Code(s): R32 - Unspecified urinary incontinence Discharge Date/Time: 09/11/19 13:50 Instructions: Urinary Incontinence -- Male Activity Restrictions/Additional Instructions: You have an appointment with the [facility] with Dr. Ashkan Cueva on Wednesday09/19/19. Your check in time is at 1110. The executive secretary social welfare today also filled out the EARL paperwork for a long-term living facility. You should be receiving a phone call at the phone number you provided for this. I also recommend that you change your adult diapers often so that the skin around your scrotum does not sit in urine for an extended period of time. I also highly recommend you use a diaper cream. You can buy this [id number]. Return to the emergency department for any new symptoms Prescriptions: No Action (DME) Adult Diapers Qty: 30 RF: 12 aspirin 325 mg tablet 325 mg PO DAILY RF: 0 (DME) DISABLED PARKING PLACARD Qty: 1 RF: 0 atorvastatin 40 mg tablet 40 mg PO BEDTIME Qty: 90 RF: 0 ergocalciferol (vitamin D2) 50,000 unit capsule 50,000 unit PO QWEEK Qty: 4 RF: 12 cephalexin [Keflex] 500 mg capsule 500 mg PO BID Qty: 20 RF: 0 Referrals: Katia Frances PA-C [Primary Care Provider] -
--- NOTE | 2019-09-11 07:29 | PC.NURSE ---
Gave pt coffee. Pt aware the UA is needed. WOOL WASHING MACHINE OPERATOR aware of consult.
--- NOTE | 2019-09-11 07:52 | PC.NURSE ---
Pt eating breakfast.
--- NOTE | 2019-09-11 08:13 | PC.NURSE ---
Jeaneth FERNÁNDEZ assisted pt to shower. Pt showering independently at this time.
[2019-09-11 08:17] LABS: Bacteria Urine Many (>30); RBC Urine >100/HPF (0-5/HPF); WBC Urine >100/HPF (0-5/HPF)
[2019-09-11 08:18] LABS: Culture Indicated Urine Specimen Cultured
== END 2019-09-11 13:50 | disposition home or self-care (01) ==
PROVIDERS: Emergency Provider Emergency Medicine; PCP Physician Assistant
DX: R32 Unspecified urinary incontinence (principal)
CPT/HCPCS: 81003; 81015; 87086; 99282; 99283

== ENCOUNTER 2019-09-30 07:48 | Emergency (ER) | payer MEDICARE, MEDICAID, SELFPAY ==
[2019-09-30 07:45] VITALS: BP 121/92; PULSE 90; RESP 16; TEMP 36.8; O2SAT 97; BMI 23.1
--- NOTE | 2019-09-30 07:49 | ED.FALL ---
HPI - Fall General Chief Complaint: Fall Stated Complaint: Fall Time Seen by Provider: 09/30/19 07:49 Source: patient, EMS and old records reviewed Mode of arrival: EMS Limitations: no limitations History of Present Illness HPI Narrative: This is a 74-year-old male who comes to the emergency department for ground level fall. Patient is known to the department, he is homeless and currently lives in his vehicle and is currently staying in the [employer] parking lot. Patient states this morning he got up to go get a cup of coffee across the street, he did not take his walker or cane and started across history and states that he felt unsteady so he started to return to his vehicle to get his walker and then lost his balance and fell to the ground. He states that he did hit his head. He states he does not think he hit it very hard. He has a little bit of a nose bleed but he states he gets those intermittently and it may be completely unrelated to his injury. He states he may be scraped up his hands a little bit but denies any major injuries or pain at this time. He denies any blood thinners currently, although has aspirin on his home medication list. Patient denies any shortness of breath, no nausea or vomiting or other symptoms. he does have chronic urinary incontinence and smell strongly of urine. He states that he has had some skin breakdown and was recommended to try some Desitin or topical ointment but has not been doing this regularly. He also does not change his depends regularly. Patient has been offered a Eagle catheter in the past but states that it would be too difficult to drain it and it is much easier to use adult diapers. Per EMS patient was able to stand and ambulate several steps to get onto the gurney. He does usually require a walker to ambulate safely. Related Data Home Medications Medication Instructions Recorded Confirmed aspirin 325 mg tablet 325 mg PO DAILY 02/23/19 09/19/19 Previous Rx's Medication Instructions Recorded Adult Diapers #30 each 08/10/18 DISABLED PARKING PLACARD #1 ea 09/27/18 ergocalciferol (vitamin D2) 50,000 50,000 unit PO QWEEK #4 cap 06/28/19 unit capsule atorvastatin 40 mg tablet 40 mg PO BEDTIME #90 tab 08/22/19 oxybutynin chloride 5 mg tablet 5 mg PO BID-TID PRN #30 tab 09/19/19 tamsulosin 0.4 mg capsule 0.4 mg PO BEDTIME #30 cap 09/19/19 Allergies Allergy/AdvReac Type Severity Reaction Status Date / Time No Known Drug Allergies Allergy Verified 09/30/19 08:21 Review of Systems Review of Systems ROS Unobtainable: All systems reviewed & are unremarkable except as noted in HPI and below Patient History Medical History Arthritis (Chronic) BPH (benign prostatic hyperplasia) (Chronic) Colon polyps (Resolved) Depression (Chronic) Hernia (Resolved) History of alcohol abuse (Resolved 1980) Hyperlipemia (Chronic) Hypertension (Chronic) Osteopenia (Chronic) Osteoporosis (Chronic) Shoulder pain (Resolved) Urinary retention (Resolved ~04/2017) Surgical History History of cataract removal with insertion of prosthetic lens (02/2016) Hx of cystoscopy (Acute 04/2017) Hx of transurethral resection of prostate (Resolved 04/2017) Status post colectomy (2010) Status post hernia repair (05/2013) Social History household members: none Smoking Status: Never smoker second hand exposure: No alcohol intake: former substance use type: does not use alcohol intake frequency: 0-2 drinks per day Substance Use Type: does not use Exam Narrative Exam Narrative: GEN: Patient appears in mild distress. Patient is moderately disheveled and smells strongly of urine. HEAD: No evidence of trauma, no raccoon/Hatfield sign. NECK: Nontender, painless range of motion, trachea midline Negative Nexus criteria, there is no mid line tenderness, distracting injury, altered mental status, neuro deficit, recent EtOH. EYES: PERRLA, EOMI ENT: External inspection normal, trachea is midline, TM's are normal no hemotypanum, Nares are clear on the left, on the right patient has a little bit of dried blood, no active bleeding, no septal hematoma, no dental or oral injury, airway is normal and with normal occlusion, No bony tenderness RESP: Chest is nontender and has symmetric movement, no ecchymosis, breath sounds are normal no crackles, wheezes or rales CVS: Heart sounds are normal, no murmur noted, No JVD. ABG/GI: Nontender, soft, normal bowel sounds, no distention, no organomegaly, pelvic rock is negative. NEURO: Oriented AOx3, neuro is grossly intact, sensation and motor is normal all 4 extremities moving, cranial nerves II through XII are intact, GCS is 15 PSYCH: Normal mood and affect SKIN: Patient does have excoriation erythema in the groin, warm and dry, no crepitus and without decubitus BACK: No CVA tenderness, no vertebral tenderness, no step-off's, no crepitus EXT: Atraumatic, hips are nontender, no pedal edema, normal color and temperature, normal range of motion of extremities with normal tendon exam, 2+ pulses in all four extremities Initial Vital Signs Initial Vital Signs: Vital Signs Temperature 98.3 F 09/30/19 07:45 Pulse Rate 90 09/30/19 07:45 Respiratory Rate 16 09/30/19 07:45 Blood Pressure 121/92 H 09/30/19 07:45 Pulse Oximetry 97 09/30/19 07:45 Course Orders Ordered: ED Orders 09/30/19 08:23 CT head/brain wo con Stat Vital Signs Vital signs: Vital Signs - 8 hr 09/30/19 07:45 09/30/19 09:31 09/30/19 11:10 Temperature 98.3 F Pulse Rate 90 75 75 Respiratory Rate 16 16 Blood Pressure 121/92 H Blood Pressure [Right Arm] 98/60 114/73 Pulse Oximetry 97 96 97 MDM - Fall Imaging Data CT scan - head: Radiologist's impression: [address] [address] [address] Scan Report Signed Patient: Dion Suresh LMR#: [id number] : 7Acct:[id number] Age/Sex: 74 / MDate of Service: 09/30/19 Loc: ED Accession Number: [id number] Procedure: CT head/brain wo con Ordering Provider: Kat Pettit D.O. PROCEDURE: CT HEAD/BRAIN WO CON INDICATIONS: fall, patient hit head. TECHNIQUE: Noncontrast 4.5 mm thick angled axial sections acquired from the foramen magnum to the vertex, with coronal and sagittal reformats. For radiation dose reduction, the following was used: automated exposure control, adjustment of mA and/or kV according to patient size. COMPARISON: [facility], CT, CT HEAD/BRAIN WO CON, 08/11/2019, 15:32. FINDINGS: Image quality: Diagnostic. CSF spaces: Basal cisterns are patent. No extra-axial fluid collections. Ventricles are rather prominent with corresponding parenchymal volume loss. Brain: No midline shift. No intracranial masses or hemorrhage. Ramirez-white matter interface is normal. Skull and face: Calvarium and visualized facial bones are intact, without suspicious lesions. Sinuses: Visualized sinuses and mastoids are clear. IMPRESSION: Stable head CT. No acute intracranial hemorrhage. Dictated by: Luiz Rehman M.D. on 09/30/2019 at 7:54 Approved by: Luiz Rehman M.D. on 09/30/2019 at 7:55 MDM Narrative Medical decision making narrative: Patient ambulated in the ER without assistance. Patient was asked to use his cane at minimum and/or walker. Patient used intermittently but not regularly while leaving the department. Discharge Plan Departure Patient Disposition: Home Clinical Impression: Fall, Urinary incontinence, Epistaxis Discharge Date/Time: 09/30/19 13:08 Activity Restrictions/Additional Instructions: Follow up with primary care for recheck of your skin. I would recommend using your walker and/or cane at all times Return to the emergency department for sudden severe headaches, altered mental status, new weakness, loss of sensation, persistent vomiting, vision changes, fevers greater than 100.4F or other new or concerning symptoms. Prescriptions: No Action (DME) Adult Diapers Qty: 30 RF: 12 aspirin 325 mg tablet 325 mg PO DAILY RF: 0 (DME) DISABLED PARKING PLACARD Qty: 1 RF: 0 atorvastatin 40 mg tablet 40 mg PO BEDTIME Qty: 90 RF: 0 ergocalciferol (vitamin D2) 50,000 unit capsule 50,000 unit PO QWEEK Qty: 4 RF: 12 tamsulosin [Flomax] 0.4 mg capsule 0.4 mg PO BEDTIME Qty: 30 RF: 1 oxybutynin chloride 5 mg tablet 5 mg PO BID-TID PRN (Reason: bladder spasms) Qty: 30 RF: 0 Referrals: Katia Frances PA-C [Primary Care Provider] -
--- NOTE | 2019-09-30 08:23 | DI.CT.S_ITS ---
PROCEDURE: CT HEAD/BRAIN WO CON INDICATIONS: fall, patient hit head. TECHNIQUE: Noncontrast 4.5 mm thick angled axial sections acquired from the foramen magnum to the vertex, with coronal and sagittal reformats. For radiation dose reduction, the following was used: automated exposure control, adjustment of mA and/or kV according to patient size. COMPARISON: [facility], CT, CT HEAD/BRAIN WO CON, 08/11/2019, 15:32. FINDINGS: Image quality: Diagnostic. CSF spaces: Basal cisterns are patent. No extra-axial fluid collections. Ventricles are rather prominent with corresponding parenchymal volume loss. Brain: No midline shift. No intracranial masses or hemorrhage. Ramirez-white matter interface is normal. Skull and face: Calvarium and visualized facial bones are intact, without suspicious lesions. Sinuses: Visualized sinuses and mastoids are clear. IMPRESSION: Stable head CT. No acute intracranial hemorrhage. Dictated by: Luiz Rehman M.D. on 09/30/2019 at 7:54 Approved by: Luiz Rehman M.D. on 09/30/2019 at 7:55
--- NOTE | 2019-09-30 08:23 | PC.NURSE ---
arrived with incontinent of urine and stools, taken to shower with one assist, tolerated well, noted pt with generalized shaking and weakness. denies pain.
--- NOTE | 2019-09-30 08:25 | PC.NURSE ---
cooperative with care.
--- NOTE | 2019-09-30 08:25 | PC.NURSE ---
clothing sent for laundry.
[2019-09-30 09:31] VITALS: BP 98/60; PULSE 75; RESP 16; O2SAT 96
[2019-09-30 11:10] VITALS: BP 114/73; PULSE 75; O2SAT 97
--- NOTE | 2019-09-30 11:39 | PC.NURSE ---
Pt was up at the sink with two SBA. Pt turned and looked at me and said, You know I will be back in 20 minutes.
--- NOTE | 2019-09-30 12:23 | PC.NURSE ---
escorted patient to waiting area. patient states he is going to call a cab to go to his truck. i explained i'm still waiting for med 16 to call back. pt then said i'm going to try to walk and see if i fall. i said will stay and watch. patient took 2 steps without using his cane. i explained to use and how to use the cane and patient still not using it. it touches the floor for a moment and then he lifts it up and he doesn't put any weight on it.
--- NOTE | 2019-09-30 12:45 | PC.NURSE ---
checked patients pockets again, checked bed, lifted mattress, checked trash. checked linens, and bag from earlier and found the keys, returned them to patient.
== END 2019-09-30 13:08 | disposition home or self-care (01) ==
PROVIDERS: Emergency Provider Emergency Medicine; PCP Physician Assistant
DX: S09.90XA Unspecified injury of head, initial encounter (principal); R32 Unspecified urinary incontinence; R04.0 Epistaxis; Z79.82 Long term (current) use of aspirin; W18.30XA Fall on same level, unspecified, initial encounter
CPT/HCPCS: 70450; 99283; 99284

== ENCOUNTER 2019-10-14 10:00 | Emergency (ER) | payer MEDICARE, MEDICAID, SELFPAY | END 2019-10-14 10:21 | disposition left against medical advice (07) | PROVIDERS: Emergency Provider Emergency Medicine; PCP Physician Assistant ==

== ENCOUNTER → 2019-11-02 10:07 | Outpatient (CLI) | payer MEDICARE, MEDICAID, SELFPAY ==
[2019-11-02 10:40] LABS: Add Manual Diff / Slide Review NO; Basophils Absolute Auto 100 /uL (0-100); Basophils Percent Auto 0.5 % (0-2); Eosinophils Absolute Auto 100 /uL (0-450); Eosinophils Percent Auto 0.8 % (2-4); Hematocrit 45.5 % (41-53); Hemoglobin 15.3 g/dL (13.5-17.5); Lymphocytes Absolute Auto 1500 /uL (1100-4500); Lymphocytes Percent Auto 12.3 % (25-40); Mean Corpuscular HGB Conc 33.6 % (30-36); Mean Corpuscular Hemoglobin 31.4 PG (26-34); Mean Corpuscular Volume 93.4 fL (80-100); Monocytes Absolute Auto 900 /uL (0-900); Monocytes Percent Auto 7.3 % (3-14); Neutrophils Absolute Auto 9600 /uL (1500-7000); Neutrophils Percent Auto 79.1 % (50-75); Platelet Count 269 X10^3/uL (150-400); Red Blood Cell Count 4.88 X10^6/uL (4.5-5.9); Red Cell Distribution Width 13.3 % (11.6-14.8); White Blood Cell Count 12.2 X10^3/uL (4.5-11.0)
[2019-11-02 11:06] LABS: BUN Creatinine Ratio 23.3 (6-22); Blood Urea Nitrogen 21 mg/dL (9-20); Calcium 9.3 mg/dL (8.4-10.2); Carbon Dioxide 23 mmol/L (22-32); Chloride 109 mmol/L (98-107); Estimated Glomerular Filt Rate > 60.0 mL/min (>60); Glucose 79 mg/dL (80-110); HEMOLYSIS < 15 (0-50); Potassium 4.2 mmol/L (3.4-5.1); Sodium 143 mmol/L (137-145)
[2019-11-02 11:31] LABS: Prostate Specific Antigen Scrn 12.5 ng/mL (0.1-4.0)
[2019-11-02 11:48] LABS: Vitamin B12 259 pg/mL (239-931)
== END ==
PROVIDERS: Hospitalist; PCP Physician Assistant; Visit Provider Physician Assistant
DX: E55.9 Vitamin D deficiency, unspecified (principal); N40.0 Benign prostatic hyperplasia without lower urinary tract symptoms; N39.0 Urinary tract infection, site not specified; R97.20 Elevated prostate specific antigen [PSA]
CPT/HCPCS: 36415; 80048; 82607; 84153; 85025; G0103

== ENCOUNTER 2019-11-07 12:17 | Emergency (ER) | payer MEDICARE, MEDICAID, SELFPAY ==
[2019-11-07 12:46] VITALS: BP 130/96; PULSE 66; RESP 13; TEMP 36.6; O2SAT 94; BMI 25.8
[2019-11-07 13:07] LABS: Add Manual Diff / Slide Review NO; Basophils Absolute Auto 0 /uL (0-100); Basophils Percent Auto 0.4 % (0-2); Eosinophils Absolute Auto 200 /uL (0-450); Eosinophils Percent Auto 1.5 % (2-4); Hematocrit 41.8 % (41-53); Hemoglobin 14.6 g/dL (13.5-17.5); Lymphocytes Absolute Auto 1500 /uL (1100-4500); Lymphocytes Percent Auto 12.7 % (25-40); Mean Corpuscular Hemoglobin 32.1 PG (26-34); Mean Corpuscular Volume 91.9 fL (80-100); Monocytes Absolute Auto 1000 /uL (0-900); Monocytes Percent Auto 8.1 % (3-14); Neutrophils Absolute Auto 9300 /uL (1500-7000); Neutrophils Percent Auto 77.3 % (50-75); Platelet Count 292 X10^3/uL (150-400); Red Blood Cell Count 4.55 X10^6/uL (4.5-5.9); Red Cell Distribution Width 13.5 % (11.6-14.8)
[2019-11-07 13:16] LABS: INR 0.9 (0.9-1.3); Prothrombin Time 10.8 SECONDS (10.1-12.7)
--- NOTE | 2019-11-07 13:18 | ED.WEAKNESS ---
HPI - Weakness General Chief complaint: Weakness Stated complaint: Fall, Nose Bleed Time Seen by Provider: 11/07/19 13:00 Source: patient and EMS Mode of arrival: EMS History of Present Illness HPI Narrative: Patient is a 74-year-old homeless male well known to this emergency department presenting with ground level fall. He says he was getting out of his car he tripped on the cement fell forward hitting his head and nose. He is not on any antiplatelet or anticoagulation medication although a aspirin is listed he states that he has not taking it. He denies any dizziness lightheadedness loss of consciousness nausea vomiting weakness pelvic pain. He chronically smells of urine and for that reason staff kindly showered him upon arrival. Related Data Home Medications Medication Instructions Recorded Confirmed aspirin 325 mg tablet 325 mg PO DAILY 02/23/19 11/07/19 Previous Rx's Medication Instructions Recorded Adult Diapers #30 each 08/10/18 DISABLED PARKING PLACARD #1 ea 09/27/18 ergocalciferol (vitamin D2) 50,000 50,000 unit PO QWEEK #4 cap 06/28/19 unit capsule atorvastatin 40 mg tablet 40 mg PO BEDTIME #90 tab 11/07/19 oxybutynin chloride 5 mg tablet 5 mg PO BID-TID PRN #90 tab 11/07/19 tamsulosin 0.4 mg capsule 0.4 mg PO BEDTIME #90 cap 11/07/19 Allergies Allergy/AdvReac Type Severity Reaction Status Date / Time No Known Drug Allergies Allergy Verified 11/07/19 10:32 Review of Systems Review of Systems ROS Unobtainable: All systems reviewed & are unremarkable except as noted in HPI and below Constitutional Constitutional: Denies chills, Denies fever(s), Denies lethargy and Denies weakness Eyes Eyes: Denies change in vision, Denies eye discharge, Denies irritation and Denies loss of vision ENT Ears, Nose, Mouth, and Throat: Denies change in voice, Denies neck pain and Denies sore throat Cardiovascular Cardiovascular: Denies chest pain, Denies irregular heart rhythm, Denies lightheadedness, Denies palpitations, Denies dyspnea, Denies dyspnea on exertion and Denies orthopnea Respiratory Respiratory: Denies cough, Denies dyspnea, Denies dyspnea on exertion and Denies wheezing Gastrointestinal Gastrointestinal: Denies abdominal pain, Denies change in bowel habits, Denies diarrhea, Denies nausea and Denies vomiting Genitourinary Genitourinary: Denies hematuria, Denies flank pain, Denies urinary incontinence and Denies urinary urgency Musculoskeletal Musculoskeletal: Denies abnormal gait, Denies back pain, Denies deformity, Denies joint swelling, Denies neck pain, Denies numbness, Denies stiffness and Denies tingling Integumentary/Breasts Skin/Breast: Denies pruritus, Denies erythema, Denies rash and Denies wounds Neurologic Neurologic: Denies abnormal gait, Denies loss of vision, Denies numbness, Denies tingling and Denies weakness Endocrine Endocrine: Denies palpitations Allergic/Immunologic Allergic/Immunologic: Denies wheezing Patient History Medical History Arthritis (Chronic) BPH (benign prostatic hyperplasia) (Chronic) Colon polyps (Resolved) Depression (Chronic) Hernia (Resolved) History of alcohol abuse (Resolved 1980) Hyperlipemia (Chronic) Hypertension (Chronic) Osteopenia (Chronic) Osteoporosis (Chronic) Shoulder pain (Resolved) Urinary retention (Resolved ~04/2017) Surgical History History of cataract removal with insertion of prosthetic lens (02/2016) Hx of cystoscopy (Acute 04/2017) Hx of transurethral resection of prostate (Resolved 04/2017) Status post colectomy (2010) Status post hernia repair (05/2013) Family History Father Alcohol abuse Smoker Mother Osteoporosis Social History household members: none Smoking Status: Never smoker second hand exposure: No alcohol intake: former substance use type: does not use Smoking Status: Never smoker alcohol intake frequency: 0-2 drinks per day Substance Use Type: does not use Exam Initial Vital Signs Initial Vital Signs: Vital Signs Temperature 97.8 F 11/07/19 12:46 Pulse Rate 66 11/07/19 12:46 Respiratory Rate 13 11/07/19 12:46 Blood Pressure 130/96 H 11/07/19 12:46 Pulse Oximetry 94 11/07/19 12:46 GENERAL: Poor hygiene is smells of urine alert male no sign of trauma HEENT: Head atraumatic,EOMI, pupils reactive, face symmetric CARDIOVASCULAR: Regular rate and rhythm without murmurs, rubs or gallops. RESPIRATORY: Breath sounds equal bilaterally, no wheezes rales or rhonchi. ABDOMEN: Soft, nontender. Normoactive bowel sounds all 4 quadrants. No guarding or rebound. EXTREMITIES: Normal range of motion, no clubbing or edema. Neurovascularly intact. Pelvis stable NEUROLOGICAL: Alert and oriented x4. SKIN: Warm, dry, no laceration, no petechiae, no rashes or lesions. Course Orders Ordered: ED Orders 11/07/19 12:51 EKG-12 Lead Stat 11/07/19 13:00 Basic Metabolic Panel Stat Complete Blood Count AUTO DIFF Stat Prothrombin Time INR Stat Troponin & CK Cardiac Panel Stat 11/07/19 13:35 CT head/brain wo con Stat Vital Signs Vital signs: Vital Signs - 8 hr 11/07/19 12:46 11/07/19 15:01 11/07/19 16:31 Temperature 97.8 F Pulse Rate 66 103 H 94 H Respiratory Rate 13 20 16 Blood Pressure 130/96 H Blood Pressure [Left Wrist] 107/71 101/54 L Pulse Oximetry 94 96 97 MDM - Weakness Lab Data Attestation: I reviewed the patient's lab results. Result diagrams: 11/07/19 13:00 11/07/19 13:00 Labs: Lab Results 11/07/19 11/07/19 11/07/19 Range/Units 13:00 13:00 13:00 WBC 12.0 H (4.5-11.0) X10^3/uL RBC 4.55 (4.5-5.9) X10^6/uL Hgb 14.6 (13.5-17.5) g/dL Hct 41.8 (41-53) % MCV 91.9 (80-100) fL MCH 32.1 (26-34) PG MCHC 35.0 (30-36) % RDW 13.5 (11.6-14.8) % Plt Count 292 (150-400) X10^3/uL Neut % (Auto) 77.3 H (50-75) % Lymph % (Auto) 12.7 L (25-40) % [place] % (Auto) 8.1 (3-14) % Eos % (Auto) 1.5 L (2-4) % Baso % (Auto) 0.4 (0-2) % Neut # (Auto) 9300 H (1229-3367) /uL Lymph # (Auto) 1500 (5394-1192) /uL [place] # (Auto) 1000 H (0-900) /uL Eos # (Auto) 200 (0-450) /uL Baso # (Auto) 0 (0-100) /uL PT 10.8 (10.1-12.7) SECONDS INR 0.9 (0.9-1.3) Sodium 140 (137-145) mmol/L Potassium 4.0 (3.4-5.1) mmol/L Chloride 110 H (98-107) mmol/L Carbon Dioxide 20 L (22-32) mmol/L BUN 26 H (9-20) mg/dL Creatinine 0.70 (0.66-1.25) mg/dL Estimated GFR > 60.0 (>60) mL/min BUN/Creatinine Ratio 37.1 H (6-22) Glucose 99 (80-110) mg/dL Calcium 8.6 (8.4-10.2) mg/dL Total Creatine Kinase 115 (55-170) U/L CK-MB (CK-2) 3.00 H (<2.37) ng/mL CK-MB (CK-2) Rel Index 2.6 (1.5-5.0) % Troponin I 0.034 (0.01-0.034) ng/mL Imaging Data CT scan - head: Radiologist's impression: PROCEDURE: CT HEAD/BRAIN WO CON INDICATIONS: fall head injury TECHNIQUE: Noncontrast 4.5 mm thick angled axial sections acquired from the foramen magnum to the vertex, with coronal and sagittal reformats. For radiation dose reduction, the following was used: automated exposure control, adjustment of mA and/or kV according to patient size. COMPARISON: [facility], CT, CT HEAD/BRAIN WO CON, 09/30/2019, 8:32. FINDINGS: Image quality: Excellent. CSF spaces: Basal cisterns are patent. No extra-axial fluid collections. The ventricles are symmetric in size and shape. Brain: No intracranial bleeds or masses. There is cerebral volume loss for age, with resultant ventricular and sulcal prominence. There are periventricular and deep white matter chronic small vessel ischemic changes. There is intracranial internal carotid artery atherosclerosis. Skull and face: Calvarium and visualized facial bones appear intact, without suspicious lesions. Sinuses: Visualized sinuses and mastoids are clear. IMPRESSION: No CT evidence of acute intracranial pathology. No significant changes from previous study. Dictated by: Parviz Rosnebaum M.D. on 11/07/2019 at 13:54 ECG Data Attestation: I personally reviewed and interpreted this ECG as follows: Prior ECG tracings: available for review Interpretation: Normal sinus rhythm rate 84 p.r. interval 155 QRS [address] elevations depressions or T-wave inversions similar to previous EKG in July 2019 MDM Narrative Medical decision making narrative: Patient is given a shower and a sandwich in the emergency department. He has no sign of trauma this sounds more like a mechanical fall rather than a syncopal episode. He typically walks with a walker which he leaves in his car and does not use as he should. He admits that his walker is in his car at this very moment. He is given 1 of our walkers an ambulation trial which he passes with ease. At this time he can be discharged. Discharge Plan Departure Patient Disposition: Home Clinical Impression: Fall Qualifiers: Encounter type: initial encounter Qualified Code(s): W19.XXXA - Unspecified fall, initial encounter Discharge Date/Time: 11/07/19 16:33 Instructions: How to Prevent Falls Activity Restrictions/Additional Instructions: *You have been diagnosed with fall *What to do: Recommend using walker while ambulating *Continue to take medications as directed *Follow up with your primary care provider in 2-3 days *Return to ER if you should have any new, worsening or concerning symptoms Prescriptions: No Action (DME) Adult Diapers Qty: 30 RF: 12 aspirin 325 mg tablet 325 mg PO DAILY RF: 0 (DME) DISABLED PARKING PLACARD Qty: 1 RF: 0 ergocalciferol (vitamin D2) 50,000 unit capsule 50,000 unit PO QWEEK Qty: 4 RF: 12 atorvastatin 40 mg tablet 40 mg PO BEDTIME Qty: 90 RF: 3 oxybutynin chloride 5 mg tablet 5 mg PO BID-TID PRN (Reason: bladder spasms) Qty: 90 RF: 1 tamsulosin [Flomax] 0.4 mg capsule 0.4 mg PO BEDTIME Qty: 90 RF: 1 Referrals: Katia Frances PA-C [Primary Care Provider] -
[2019-11-07 13:20] LABS: BUN Creatinine Ratio 37.1 (6-22); Blood Urea Nitrogen 26 mg/dL (9-20); Calcium 8.6 mg/dL (8.4-10.2); Carbon Dioxide 20 mmol/L (22-32); Chloride 110 mmol/L (98-107); Creatine Kinase 115 U/L (55-170); Estimated Glomerular Filt Rate > 60.0 mL/min (>60); Glucose 99 mg/dL (80-110); Sodium 140 mmol/L (137-145)
[2019-11-07 13:32] LABS: Troponin I 0.034 ng/mL (0.01-0.034)
[2019-11-07 13:35] LABS: CKMB % Relative Index 2.6 % (1.5-5.0); HEMOLYSIS 47 (0-50)
--- NOTE | 2019-11-07 13:35 | DI.CT.S_ITS ---
PROCEDURE: CT HEAD/BRAIN WO CON INDICATIONS: fall head injury TECHNIQUE: Noncontrast 4.5 mm thick angled axial sections acquired from the foramen magnum to the vertex, with coronal and sagittal reformats. For radiation dose reduction, the following was used: automated exposure control, adjustment of mA and/or kV according to patient size. COMPARISON: [facility], CT, CT HEAD/BRAIN WO CON, 09/30/2019, 8:32. FINDINGS: Image quality: Excellent. CSF spaces: Basal cisterns are patent. No extra-axial fluid collections. The ventricles are symmetric in size and shape. Brain: No intracranial bleeds or masses. There is cerebral volume loss for age, with resultant ventricular and sulcal prominence. There are periventricular and deep white matter chronic small vessel ischemic changes. There is intracranial internal carotid artery atherosclerosis. Skull and face: Calvarium and visualized facial bones appear intact, without suspicious lesions. Sinuses: Visualized sinuses and mastoids are clear. IMPRESSION: No CT evidence of acute intracranial pathology. No significant changes from previous study. Dictated by: Parviz Rosenbaum M.D. on 11/07/2019 at 13:54 Approved by: Parviz Rosenbaum M.D. on 11/07/2019 at 13:55
--- NOTE | 2019-11-07 13:47 | PC.NURSE ---
Pt arrived via EMS. Pt homeless and living in his car. increasingly weak and unsteady on feet. Had GLF today outside. EMS reports he hit head, denies LOC, no abrasions noted to head. pt denies pain and reports does not taken blood thinners. Incontinent and covered in urine and feces. taken from EMS stretcher into ED shower and assisted with showering which he was not really able to do himself. placed in Patient Pack of new sweats and placed in RM 8. Placed on cardiac monitoring and EKG obtained. IV in place and labs sent.
[2019-11-07 15:01] VITALS: BP 107/71; PULSE 103; RESP 20; O2SAT 96
[2019-11-07 16:31] VITALS: BP 101/54; PULSE 94; RESP 16; O2SAT 97
== END 2019-11-07 16:33 | disposition home or self-care (01) ==
PROVIDERS: Emergency Provider Emergency Medicine; PCP Physician Assistant
DX: S09.90XA Unspecified injury of head, initial encounter (principal); R07.9 Chest pain, unspecified; W19.XXXA Unspecified fall, initial encounter
CPT/HCPCS: 36415; 70450; 80048; 82550; 82553; 84484; 85025; 85610; 93005; 93010; 93041; 99281; 99285

== ENCOUNTER 2019-11-16 12:16 | Emergency (ER) | payer MEDICARE, MEDICAID, SELFPAY ==
[2019-11-16 12:23] VITALS: BP 118/71; PULSE 91; RESP 20; TEMP 36.2; O2SAT 96
--- NOTE | 2019-11-16 12:26 | PC.NURSE ---
pt arrived in clothes he left in the last time he was here. pt reports he hasn't changed them. pt covered in feces and urine, pull up brief brown in color due to incontinence. pt unsteady on feet using cane. pt appears unable to care for self at home or in his car where he lives. pt states he has invisible friends that live with him.
--- NOTE | 2019-11-16 12:35 | PC.NURSE ---
skin appearance was present at previous visit.
--- NOTE | 2019-11-16 12:40 | DI.RAD.S_ITS ---
PROCEDURE: XR RIBS LT MIN 3V W CXR1V INDICATIONS: pain after fall TECHNIQUE: 2 views of the left ribs were acquired, along with a single view chest. COMPARISON: None. FINDINGS: Surgical changes and devices: None. Bones and chest wall: No fractures or dislocations. No suspicious bony lesions. Overlying soft tissues appear unremarkable. Lungs and pleura: No pleural effusions or pneumothorax. Lungs appear clear. Mediastinum: Mediastinal contours appear normal. Heart size is normal. IMPRESSION: No evidence acute pulmonary process. No displaced rib fracture identified. Dictated by: Jae Zapata M.D. on 11/16/2019 at 14:38 Approved by: Jae Zapata M.D. on 11/16/2019 at 14:39
--- NOTE | 2019-11-16 12:40 | DI.RAD.S_ITS ---
PROCEDURE: XR ELBOW RT MIN 3V INDICATIONS: pain after fall TECHNIQUE: 3 views of the elbow were acquired. COMPARISON: None. FINDINGS: Bones: No fractures or dislocations. No suspicious bony lesions. Soft tissues: No elbow joint effusion. No suspicious soft tissue calcifications. Mild degenerative change. IMPRESSION: No evidence acute bony abnormality of the right elbow. Mild degenerative change. If clinical suspicion and/or symptoms persist, further assessment with repeat plain films, or advanced imaging (e.g., CT, MRI, or bone scan) may be helpful for further assessment. Dictated by: Jae Zapata M.D. on 11/16/2019 at 14:37 Approved by: Jae Zapata M.D. on 11/16/2019 at 14:38
[2019-11-16 12:55] LABS: Add Manual Diff / Slide Review NO; Basophils Absolute Auto 100 /uL (0-100); Basophils Percent Auto 0.7 % (0-2); Eosinophils Absolute Auto 0 /uL (0-450); Eosinophils Percent Auto 0.4 % (2-4); Hematocrit 42.3 % (41-53); Hemoglobin 14.1 g/dL (13.5-17.5); Lymphocytes Absolute Auto 1200 /uL (1100-4500); Lymphocytes Percent Auto 10.2 % (25-40); Mean Corpuscular HGB Conc 33.3 % (30-36); Mean Corpuscular Hemoglobin 30.8 PG (26-34); Mean Corpuscular Volume 92.5 fL (80-100); Monocytes Absolute Auto 1000 /uL (0-900); Monocytes Percent Auto 8.2 % (3-14); Neutrophils Absolute Auto 9600 /uL (1500-7000); Neutrophils Percent Auto 80.5 % (50-75); Platelet Count 308 X10^3/uL (150-400); Red Blood Cell Count 4.58 X10^6/uL (4.5-5.9); Red Cell Distribution Width 13.5 % (11.6-14.8); White Blood Cell Count 11.9 X10^3/uL (4.5-11.0)
--- NOTE | 2019-11-16 12:55 | DI.CT.S_ITS ---
PROCEDURE: CT HEAD/BRAIN WO CON INDICATIONS: ground level fall TECHNIQUE: Noncontrast 4.5 mm thick angled axial sections acquired from the foramen magnum to the vertex, with coronal and sagittal reformats. For radiation dose reduction, the following was used: automated exposure control, adjustment of mA and/or kV according to patient size. COMPARISON: [facility], CT, CT HEAD/BRAIN WO CON, 11/07/2019, 13:35. FINDINGS: Image quality: Diagnostic. CSF spaces: Basal cisterns are patent. No extra-axial fluid collections. Ventricles are mildly prominent with coarse parenchymal volume loss. Brain: No midline shift. No intracranial masses or hemorrhage. Ramirez-white matter interface is normal. Subtle foci of low attenuation are seen within the periventricular white matter of the supratentorial brain which is similar to the prior study. Skull and face: Calvarium and visualized facial bones are intact, without suspicious lesions. Sinuses: Visualized sinuses and mastoids are clear. IMPRESSION: Stable head CT. No acute intracranial hemorrhage. Dictated by: Luiz Rehman M.D. on 11/16/2019 at 12:20 Approved by: Luiz Rehman M.D. on 11/16/2019 at 12:21
[2019-11-16 12:56] LABS: Prothrombin Time 11.8 SECONDS (10.1-12.7)
[2019-11-16 13:02] LABS: Alanine Aminotransferase 23 IU/L (<50); Albumin 3.8 g/dL (3.5-5.0); Albumin Globulin Ratio 1.3 (1.0-2.8); Alkaline Phosphatase 85 U/L (38-126); Aspartate Aminotransferase 37 IU/L (17-59); BUN Creatinine Ratio 43.8 (6-22); Bilirubin Total 0.5 mg/dL (0.2-1.3); Blood Urea Nitrogen 35 mg/dL (9-20); Calcium 8.8 mg/dL (8.4-10.2); Carbon Dioxide 19 mmol/L (22-32); Chloride 114 mmol/L (98-107); Creatine Kinase 321 U/L (55-170); Estimated Glomerular Filt Rate > 60.0 mL/min (>60); Ethanol (ETOH) < 10 mg/dL; Globulin 2.9 g/dL (1.7-4.1); Glucose 133 mg/dL (80-110); HEMOLYSIS < 15 (0-50); Sodium 145 mmol/L (137-145); Total Protein 6.7 g/dL (6.3-8.2)
[2019-11-16 13:13] LABS: Troponin I < 0.012 ng/mL (0.01-0.034)
[2019-11-16 13:17] LABS: CKMB % Relative Index 1.5 % (1.5-5.0); Creatine Kinase MB 4.88 ng/mL (<2.37)
--- NOTE | 2019-11-16 15:02 | PC.NURSE ---
condom cath placed on patient for urine collection and to protect skin from continued skin irritation from urine.
[2019-11-16 15:16] LABS: Appearance Urine UA CLOUDY; Bilirubin Urine UA NEGATIVE (NEGATIVE); Color Urine UA BROWN; Glucose Urine UA NEGATIVE (Negative); Ketones Urine UA NEGATIVE (NEGATIVE); Leukocyte Esterase Urine UA TRACE (NEGATIVE); Nitrite Urine UA NEGATIVE (Negative); Occult Blood Urine UA 3+ (Negative); Protein Urine UA 2+ (Negative); Specific Gravity Urine UA 1.025 (1.000-1.035); Urobilinogen Urine UA 0.2 E.U./dL (0.2); pH Urine UA 6.5 (4.5-8.0)
[2019-11-16 15:21] LABS: Bacteria Urine None Seen
[2019-11-16 15:23] LABS: Amorphous Sediment Urine 2+; Culture Indicated Urine Specimen Cultured; RBC Urine 10-30/HPF (0-5/HPF); WBC Urine 5-10/HPF (0-5/HPF)
[2019-11-16 15:45] VITALS: BP 118/69; PULSE 87; RESP 18; TEMP 37.1; O2SAT 94
--- NOTE | 2019-11-16 15:56 | ED.FALL ---
HPI - Fall <MAURY CraneBC - Last Filed: 11/16/19 20:32> General Chief Complaint: Fall Stated Complaint: Multiple Complaints Time Seen by Provider: 11/16/19 12:28 Source: patient and EMS Mode of arrival: Ambulatory Limitations: no limitations History of Present Illness HPI Narrative: The patient is a 74-year-old male nonsmoker well known to this department of ground level falls who presents with a chief complaint of a ground level fall last night. He states he tripped getting out of his car, hit his head on the cement and also hit his right elbow and ribs. He does not take any anti-platelet or anticoagulant medication, states he does not even take an aspirin that is listed. He denies any dizziness, lightheadedness, loss of consciousness, nausea vomiting weakness, hip pain, chest pain. He states that he fell last night when he tripped as he was not using his walker that he is supposed to use. Nursing staff kindly shower the patient upon arrival as he was covered in urine as he has chronic urinary incontinence. This is consistent with previous presentations to this emergency department. The patient is currently homeless, living in his truck in a [employer] parking lot. Today he drove his car to the emergency department to be evaluated. States his tetanus is up-to-date as he received on over the summer. Related Data Home Medications Medication Instructions Recorded Confirmed aspirin 325 mg tablet 325 mg PO DAILY 02/23/19 11/17/19 Previous Rx's Medication Instructions Recorded Adult Diapers #30 each 08/10/18 DISABLED PARKING PLACARD #1 ea 09/27/18 ergocalciferol (vitamin D2) 50,000 50,000 unit PO QWEEK #4 cap 06/28/19 unit capsule atorvastatin 40 mg tablet 40 mg PO BEDTIME #90 tab 11/07/19 oxybutynin chloride 5 mg tablet 5 mg PO BID-TID PRN #90 tab 11/07/19 tamsulosin 0.4 mg capsule 0.4 mg PO BEDTIME #90 cap 11/07/19 Allergies Allergy/AdvReac Type Severity Reaction Status Date / Time No Known Drug Allergies Allergy Verified 11/16/19 12:22 Review of Systems <WINTER Crane - Last Filed: 11/16/19 20:32> Review of Systems Narrative: GENERAL: Denies chills, fatigue, malaise, fever, sweats. HEENT: Denies sinus pain, ear pain, sore throat, difficulty swallowing, dizziness. RESPIRATORY: Denies dyspnea, cough, wheezing, hemoptysis, sputum. CARDIOVASCULAR: Denies chest pain, palpitations, orthopnea, edema, GASTROINTESTINAL: Denies nausea, vomiting, abdominal pain, diarrhea, constipation, melena. : See HPI MUSCULOSKELETAL: See HPI SKIN: Denies rash, skin lesions, or other NEUROLOGIC: See HPI PSYCHIATRIC: No concerning psychosocial issues. 12 point review of systems is negative except for those stated above Patient History <WINTER Crane - Last Filed: 11/16/19 20:32> Medical History Arthritis (Chronic) BPH (benign prostatic hyperplasia) (Chronic) Colon polyps (Resolved) Depression (Chronic) Hernia (Resolved) History of alcohol abuse (Resolved 1980) Hyperlipemia (Chronic) Hypertension (Chronic) Osteopenia (Chronic) Osteoporosis (Chronic) Shoulder pain (Resolved) Urinary retention (Resolved ~04/2017) Surgical History History of cataract removal with insertion of prosthetic lens (02/2016) Hx of cystoscopy (Acute 04/2017) Hx of transurethral resection of prostate (Resolved 04/2017) Status post colectomy (2010) Status post hernia repair (05/2013) Family History Father Alcohol abuse Smoker Mother Osteoporosis Social History household members: none Smoking Status: Never smoker second hand exposure: No alcohol intake: former substance use type: does not use Smoking Status: Never smoker alcohol intake frequency: 0-2 drinks per day Substance Use Type: does not use Exam <WINTER Crane - Last Filed: 11/16/19 20:32> Narrative Exam Narrative: GENERAL: Who chronically ill-appearing unkempt male with urine odor HEAD: Atraumatic. Normocephalic. No temporal or scalp tenderness. EYES: Pupils equal round and reactive. Extraocular motions intact. No scleral icterus. No injection or drainage. ENT: Nose without bleeding, purulent drainage or septal hematoma. Throat without erythema, tonsillar hypertrophy or exudate. Uvula midline. Airway patent. NECK: Trachea midline. No JVD or lymphadenopathy. Supple, nontender, no meningeal signs. CARDIOVASCULAR: Regular rate and rhythm RESPIRATORY: Clear to auscultation. Breath sounds equal bilaterally. No wheezes, rales, or rhonchi. No cough. No increased respiratory effort. No accessory muscle use. Generalized pain to palpation right ribs. GASTROINTESTINAL: Abdomen soft, non-tender, nondistended. No hepato-splenomegaly, or palpable masses. No guarding. EXTREMITIES: General pain to palpation noted right elbow. Able to flex and extend right elbow. Positive radial pulses. BACK: Nontender without deformity or crepitance. No flank tenderness. To CT or L-spine palpation. NEURO: AOx3. SKIN:multiple scabs over bilateral upper extremities. No Hatfield signs. No periorbital ecchymosis. Initial Vital Signs Initial Vital Signs: Vital Signs Temperature 97.2 F L 11/16/19 12:23 Pulse Rate 91 H 11/16/19 12:23 Respiratory Rate 20 11/16/19 12:23 Blood Pressure 118/71 11/16/19 12:23 Pulse Oximetry 96 11/16/19 12:23 <Dang Kaplan MD - Last Filed: 11/21/19 07:26> Initial Vital Signs Initial Vital Signs: Vital Signs Temperature 97.2 F L 11/16/19 12:23 Pulse Rate 91 H 11/16/19 12:23 Respiratory Rate 20 11/16/19 12:23 Blood Pressure 118/71 11/16/19 12:23 Pulse Oximetry 96 11/16/19 12:23 Course <WINTER Craen - Last Filed: 11/16/19 20:32> Orders Ordered: ED Orders 11/16/19 12:20 Complete Blood Count AUTO DIFF Stat Comprehensive Metabolic Panel Stat Ethanol (ETOH) Stat Prothrombin Time INR Stat Troponin & CK Cardiac Panel Stat 11/16/19 12:40 XR elbow RT min 3V Stat XR ribs LT min 3V w CXR1V Stat 11/16/19 12:43 EKG-12 Lead Stat 11/16/19 12:55 CT head/brain wo con Stat 11/16/19 13:13 Consult to [facility] [employer] Specialist Stat 11/16/19 15:00 Urinalysis Sreen (Dip Only) Stat Urine Culture Stat Urine Microscopic Stat Vital Signs Vital signs: Vital Signs - 8 hr 11/16/19 15:45 11/16/19 17:18 Temperature 98.8 F 98.2 F Pulse Rate 87 93 H Respiratory Rate 18 16 Blood Pressure [Left Arm] 118/69 127/73 Pulse Oximetry 94 97 <Dang Kaplan MD - Last Filed: 11/21/19 07:26> Orders Ordered: ED Orders 11/16/19 12:20 Complete Blood Count AUTO DIFF Stat Comprehensive Metabolic Panel Stat Ethanol (ETOH) Stat Prothrombin Time INR Stat Troponin & CK Cardiac Panel Stat 11/16/19 12:40 XR elbow RT min 3V Stat XR ribs LT min 3V w CXR1V Stat 11/16/19 12:43 EKG-12 Lead Stat 11/16/19 12:55 CT head/brain wo con Stat 11/16/19 13:13 Consult to [facility] [employer] Specialist Stat 11/16/19 15:00 Urinalysis Sreen (Dip Only) Stat Urine Culture Stat Urine Microscopic Stat Vital Signs Vital signs: Vital Signs - 8 hr 11/16/19 15:45 11/16/19 17:18 Temperature 98.8 F 98.2 F Pulse Rate 87 93 H Respiratory Rate 18 16 Blood Pressure [Left Arm] 118/69 127/73 Pulse Oximetry 94 97 MDM - Fall <NGHIA Crane-BC - Last Filed: 11/16/19 20:32> Lab Data Result diagrams: 11/16/19 12:20 11/16/19 12:20 Labs: Lab Results 11/16/19 11/16/19 11/16/19 Range/Units 12:20 12:20 12:20 WBC 11.9 H (4.5-11.0) X10^3/uL RBC 4.58 (4.5-5.9) X10^6/uL Hgb 14.1 (13.5-17.5) g/dL Hct 42.3 (41-53) % MCV 92.5 (80-100) fL MCH 30.8 (26-34) PG MCHC 33.3 (30-36) % RDW 13.5 (11.6-14.8) % Plt Count 308 (150-400) X10^3/uL Neut % (Auto) 80.5 H (50-75) % Lymph % (Auto) 10.2 L (25-40) % Graham % (Auto) 8.2 (3-14) % Eos % (Auto) 0.4 L (2-4) % Baso % (Auto) 0.7 (0-2) % Neut # (Auto) 9600 H (4282-0434) /uL Lymph # (Auto) 1200 (5942-6939) /uL Graham # (Auto) 1000 H (0-900) /uL Eos # (Auto) 0 (0-450) /uL Baso # (Auto) 100 (0-100) /uL PT 11.8 (10.1-12.7) SECONDS INR 1.0 (0.9-1.3) Sodium 145 (137-145) mmol/L Potassium 4.0 (3.4-5.1) mmol/L Chloride 114 H (98-107) mmol/L Carbon Dioxide 19 L (22-32) mmol/L BUN 35 H (9-20) mg/dL Creatinine 0.80 (0.66-1.25) mg/dL Estimated GFR > 60.0 (>60) mL/min BUN/Creatinine Ratio 43.8 H (6-22) Glucose 133 H (80-110) mg/dL Calcium 8.8 (8.4-10.2) mg/dL Total Bilirubin 0.5 (0.2-1.3) mg/dL AST 37 (17-59) IU/L ALT 23 (<50) IU/L Alkaline Phosphatase 85 (38-126) U/L Total Creatine Kinase 321 H D (55-170) U/L CK-MB (CK-2) 4.88 H (<2.37) ng/mL CK-MB (CK-2) Rel Index 1.5 (1.5-5.0) % Troponin I < 0.012 (0.01-0.034) ng/mL Total Protein 6.7 (6.3-8.2) g/dL Albumin 3.8 (3.5-5.0) g/dL Globulin 2.9 (1.7-4.1) g/dL Albumin/Globulin Ratio 1.3 (1.0-2.8) Urine Color Urine Appearance Urine pH (4.5-8.0) Ur Specific Pelham (1.000-1.035) Urine Protein (Negative) Urine Glucose (UA) (Negative) g/dL Urine Ketones (NEGATIVE) Urine Occult Blood (Negative) Urine Nitrate (Negative) Urine Bilirubin (NEGATIVE) Urine Urobilinogen (0.2) E.U./dL Ur Leukocyte Esterase (NEGATIVE) Urine RBC (0-5/HPF) Urine WBC (0-5/HPF) Amorphous Sediment Urine Bacteria (None) Ur Culture Indicated? Ethyl Alcohol < 10 ( - 10) mg/dL 11/16/19 Range/Units 15:00 WBC (4.5-11.0) X10^3/uL RBC (4.5-5.9) X10^6/uL Hgb (13.5-17.5) g/dL Hct (41-53) % MCV (80-100) fL MCH (26-34) PG MCHC (30-36) % RDW (11.6-14.8) % Plt Count (150-400) X10^3/uL Neut % (Auto) (50-75) % Lymph % (Auto) (25-40) % Graham % (Auto) (3-14) % Eos % (Auto) (2-4) % Baso % (Auto) (0-2) % Neut # (Auto) (1054-0747) /uL Lymph # (Auto) (1392-8515) /uL Graham # (Auto) (0-900) /uL Eos # (Auto) (0-450) /uL Baso # (Auto) (0-100) /uL PT (10.1-12.7) SECONDS INR (0.9-1.3) Sodium (137-145) mmol/L Potassium (3.4-5.1) mmol/L Chloride (98-107) mmol/L Carbon Dioxide (22-32) mmol/L BUN (9-20) mg/dL Creatinine (0.66-1.25) mg/dL Estimated GFR (>60) mL/min BUN/Creatinine Ratio (6-22) Glucose (80-110) mg/dL Calcium (8.4-10.2) mg/dL Total Bilirubin (0.2-1.3) mg/dL AST (17-59) IU/L ALT (<50) IU/L Alkaline Phosphatase (38-126) U/L Total Creatine Kinase (55-170) U/L CK-MB (CK-2) (<2.37) ng/mL CK-MB (CK-2) Rel Index (1.5-5.0) % Troponin I (0.01-0.034) ng/mL Total Protein (6.3-8.2) g/dL Albumin (3.5-5.0) g/dL Globulin (1.7-4.1) g/dL Albumin/Globulin Ratio (1.0-2.8) Urine Color Brown Urine Appearance Cloudy Urine pH 6.5 (4.5-8.0) Ur Specific Pelham 1.025 (1.000-1.035) Urine Protein 2+ H (Negative) Urine Glucose (UA) Negative (Negative) g/dL Urine Ketones Negative (NEGATIVE) Urine Occult Blood 3+ H (Negative) Urine Nitrate Negative (Negative) Urine Bilirubin Negative (NEGATIVE) Urine Urobilinogen 0.2 (0.2) E.U./dL Ur Leukocyte Esterase Trace H (NEGATIVE) Urine RBC 10-30/hpf H (0-5/HPF) Urine WBC 5-10/hpf H (0-5/HPF) Amorphous Sediment 2+ Urine Bacteria None seen (None) Ur Culture Indicated? Specimen cultured Ethyl Alcohol ( - 10) mg/dL Imaging Data CT scan - head: Radiologist's impression: Dion Suresh 74 M 1945 [place] [address] CT Scan Report Signed Patient: Dion Suresh LMR#: [id number] : 7Acct:[id number] Age/Sex: 74 / MDate of Service: 11/16/19 Loc: ED Accession Number: [id number] Procedure: CT head/brain wo con Ordering Provider: Kat Allen PROCEDURE: CT HEAD/BRAIN WO CON INDICATIONS: ground level fall TECHNIQUE: Noncontrast 4.5 mm thick angled axial sections acquired from the foramen magnum to the vertex, with coronal and sagittal reformats. For radiation dose reduction, the following was used: automated exposure control, adjustment of mA and/or kV according to patient size. COMPARISON: [facility], CT, CT HEAD/BRAIN WO CON, 11/07/2019, 13:35. FINDINGS: Image quality: Diagnostic. CSF spaces: Basal cisterns are patent. No extra-axial fluid collections. Ventricles are mildly prominent with coarse parenchymal volume loss. Brain: No midline shift. No intracranial masses or hemorrhage. Ramirez-white matter interface is normal. Subtle foci of low attenuation are seen within the periventricular white matter of the supratentorial brain which is similar to the prior study. Skull and face: Calvarium and visualized facial bones are intact, without suspicious lesions. Sinuses: Visualized sinuses and mastoids are clear. IMPRESSION: Stable head CT. No acute intracranial hemorrhage. Dictated by: Luiz Rehman M.D. on 11/16/2019 at 12:20 Approved by: Luiz Rehman M.D. on 11/16/2019 at 12:21 Rib x-ray: Radiologist's impression: [place] [address] XRay Report Signed Patient: Dion Suresh LMR#: [id number] : 7Acct:[id number] Age/Sex: 74 / MDate of Service: 11/16/19 Loc: ED Accession Number: [id number] Procedure: XR ribs LT min 3V w CXR1V Ordering Provider: Kat Allen- PROCEDURE: XR RIBS LT MIN 3V W CXR1V INDICATIONS: pain after fall TECHNIQUE: 2 views of the left ribs were acquired, along with a single view chest. COMPARISON: None. FINDINGS: Surgical changes and devices: None. Bones and chest wall: No fractures or dislocations. No suspicious bony lesions. Overlying soft tissues appear unremarkable. Lungs and pleura: No pleural effusions or pneumothorax. Lungs appear clear. Mediastinum: Mediastinal contours appear normal. Heart size is normal. IMPRESSION: No evidence acute pulmonary process. No displaced rib fracture identified. Dictated by: Jae Zapata M.D. on 11/16/2019 at 14:38 Approved by: Jae Zapata M.D. on 11/16/2019 at 14:39 Elbow x-ray: Radiologist's impression: [facility] DATE TYPE STATUS AUTHOR Hx 11/16/19 12:55 Luiz Rehman 11/16/19 12:40 Jae Zapata 11/16/19 12:40 Cecilio Zapataderic 11/07/19 13:35 Parviz Rosenbaum 09/30/19 08:23 Luiz Rehman 08/11/19 15:19 Cassy,Jm 08/11/19 15:19 Cassy,Jm 08/01/19 19:34 Chastity Hannon 08/01/19 19:32 Chastity Hannon 09/04/18 00:00 Kusum Marquez 09/01/18 10:53 Erick Martin 09/01/18 10:07 Cassy,Jm 07/27/18 08:49 Rancho Hunt 07/27/18 08:49 Rancho HuntDion L 74, M0 1945 DEP ER, [facility] ED 62.596kg Fall Search Chart No Data to Display NF - Not included in interaction checking ONSET 04/07/11 02/14/15 Today 17:18 Angel Sureshty Boudreaux 74 M 1945 [place] [address] XRay Report Signed Patient: Dion Suresh LMR#: [id number] : 1945cct:[id number] Age/Sex: 74 / MDate of Service: 11/16/19 Loc: ED Accession Number: [id number] Procedure: XR elbow RT min 3V Ordering Provider: Kat AllenP- PROCEDURE: XR ELBOW RT MIN 3V INDICATIONS: pain after fall TECHNIQUE: 3 views of the elbow were acquired. COMPARISON: None. FINDINGS: Bones: No fractures or dislocations. No suspicious bony lesions. Soft tissues: No elbow joint effusion. No suspicious soft tissue calcifications. Mild degenerative change. IMPRESSION: No evidence acute bony abnormality of the right elbow. Mild degenerative change. If clinical suspicion and/or symptoms persist, further assessment with repeat plain films, or advanced imaging (e.g., CT, MRI, or bone scan) may be helpful for further assessment. Dictated by: Jae Zapata M.D. on 11/16/2019 at 14:37 Approved by: Jae Zapata M.D. on 11/16/2019 at 14:38 MDM Narrative Medical decision making narrative: The patient is a 74-year-old male well known to this department presents for chief complaint of a fall yesterday, hitting his head, rib pain and elbow pain. All of his imaging came back negative. Given that he is a difficult historian with a history of alcohol abuse, I did obtain a head CT which came back with no acute findings. Patient has abrasions, but he states his tetanus is up-to-date. Lab work shows a slightly elevated CK, though his level as well below threshold for rhabdo. His troponin is negative. The patient does have RBCs and WBCs in his urine, however he does not have any bacteria or nitrate. He does have chronic incontinence, so at this point I would like to wait for culture results to treat him for a potential urinary tract infection. These UA results are consistent with all previous urinalyses in the his emergency department. The patient was seen by a LANDMEN, who gave him multiple resources for shelters etcetera. However the patient has been seen by social work in the emergency department several times, and has always declined care. In the ER, the patient received shower, clean clothes and food. The patient was able to ambulate around the emergency department with a steady gait. Discussed coming back to ER for acute concerns such as chest pain, shortness of breath etcetera <Dang Kaplan MD - Last Filed: 11/21/19 07:26> Lab Data Labs: Lab Results 11/16/19 11/16/19 11/16/19 Range/Units 12:20 12:20 12:20 WBC 11.9 H (4.5-11.0) X10^3/uL RBC 4.58 (4.5-5.9) X10^6/uL Hgb 14.1 (13.5-17.5) g/dL Hct 42.3 (41-53) % MCV 92.5 (80-100) fL MCH 30.8 (26-34) PG MCHC 33.3 (30-36) % RDW 13.5 (11.6-14.8) % Plt Count 308 (150-400) X10^3/uL Neut % (Auto) 80.5 H (50-75) % Lymph % (Auto) 10.2 L (25-40) % Graham % (Auto) 8.2 (3-14) % Eos % (Auto) 0.4 L (2-4) % Baso % (Auto) 0.7 (0-2) % Neut # (Auto) 9600 H (8782-4635) /uL Lymph # (Auto) 1200 (1947-8293) /uL Graham # (Auto) 1000 H (0-900) /uL Eos # (Auto) 0 (0-450) /uL Baso # (Auto) 100 (0-100) /uL PT 11.8 (10.1-12.7) SECONDS INR 1.0 (0.9-1.3) Sodium 145 (137-145) mmol/L Potassium 4.0 (3.4-5.1) mmol/L Chloride 114 H (98-107) mmol/L Carbon Dioxide 19 L (22-32) mmol/L BUN 35 H (9-20) mg/dL Creatinine 0.80 (0.66-1.25) mg/dL Estimated GFR > 60.0 (>60) mL/min BUN/Creatinine Ratio 43.8 H (6-22) Glucose 133 H (80-110) mg/dL Calcium 8.8 (8.4-10.2) mg/dL Total Bilirubin 0.5 (0.2-1.3) mg/dL AST 37 (17-59) IU/L ALT 23 (<50) IU/L Alkaline Phosphatase 85 (38-126) U/L Total Creatine Kinase 321 H D (55-170) U/L CK-MB (CK-2) 4.88 H (<2.37) ng/mL CK-MB (CK-2) Rel Index 1.5 (1.5-5.0) % Troponin I < 0.012 (0.01-0.034) ng/mL Total Protein 6.7 (6.3-8.2) g/dL Albumin 3.8 (3.5-5.0) g/dL Globulin 2.9 (1.7-4.1) g/dL Albumin/Globulin Ratio 1.3 (1.0-2.8) Urine Color Urine Appearance Urine pH (4.5-8.0) Ur Specific Pelham (1.000-1.035) Urine Protein (Negative) Urine Glucose (UA) (Negative) g/dL Urine Ketones (NEGATIVE) Urine Occult Blood (Negative) Urine Nitrate (Negative) Urine Bilirubin (NEGATIVE) Urine Urobilinogen (0.2) E.U./dL Ur Leukocyte Esterase (NEGATIVE) Urine RBC (0-5/HPF) Urine WBC (0-5/HPF) Amorphous Sediment Urine Bacteria (None) Ur Culture Indicated? Ethyl Alcohol < 10 ( - 10) mg/dL 11/16/19 Range/Units 15:00 WBC (4.5-11.0) X10^3/uL RBC (4.5-5.9) X10^6/uL Hgb (13.5-17.5) g/dL Hct (41-53) % MCV (80-100) fL MCH (26-34) PG MCHC (30-36) % RDW (11.6-14.8) % Plt Count (150-400) X10^3/uL Neut % (Auto) (50-75) % Lymph % (Auto) (25-40) % Graham % (Auto) (3-14) % Eos % (Auto) (2-4) % Baso % (Auto) (0-2) % Neut # (Auto) (5932-4674) /uL Lymph # (Auto) (3688-7956) /uL Graham # (Auto) (0-900) /uL Eos # (Auto) (0-450) /uL Baso # (Auto) (0-100) /uL PT (10.1-12.7) SECONDS INR (0.9-1.3) Sodium (137-145) mmol/L Potassium (3.4-5.1) mmol/L Chloride (98-107) mmol/L Carbon Dioxide (22-32) mmol/L BUN (9-20) mg/dL Creatinine (0.66-1.25) mg/dL Estimated GFR (>60) mL/min BUN/Creatinine Ratio (6-22) Glucose (80-110) mg/dL Calcium (8.4-10.2) mg/dL Total Bilirubin (0.2-1.3) mg/dL AST (17-59) IU/L ALT (<50) IU/L Alkaline Phosphatase (38-126) U/L Total Creatine Kinase (55-170) U/L CK-MB (CK-2) (<2.37) ng/mL CK-MB (CK-2) Rel Index (1.5-5.0) % Troponin I (0.01-0.034) ng/mL Total Protein (6.3-8.2) g/dL Albumin (3.5-5.0) g/dL Globulin (1.7-4.1) g/dL Albumin/Globulin Ratio (1.0-2.8) Urine Color Brown Urine Appearance Cloudy Urine pH 6.5 (4.5-8.0) Ur Specific Pelham 1.025 (1.000-1.035) Urine Protein 2+ H (Negative) Urine Glucose (UA) Negative (Negative) g/dL Urine Ketones Negative (NEGATIVE) Urine Occult Blood 3+ H (Negative) Urine Nitrate Negative (Negative) Urine Bilirubin Negative (NEGATIVE) Urine Urobilinogen 0.2 (0.2) E.U./dL Ur Leukocyte Esterase Trace H (NEGATIVE) Urine RBC 10-30/hpf H (0-5/HPF) Urine WBC 5-10/hpf H (0-5/HPF) Amorphous Sediment 2+ Urine Bacteria None seen (None) Ur Culture Indicated? Specimen cultured Ethyl Alcohol ( - 10) mg/dL Discharge Plan Departure Patient Disposition: Home Clinical Impression: Homeless Fall Qualifiers: Encounter type: initial encounter Qualified Code(s): W19.XXXA - Unspecified fall, initial encounter Discharge Date/Time: 11/16/19 20:17 Instructions: How to Prevent Falls, All Chi May Improve Physical Function, Reduce Falls Activity Restrictions/Additional Instructions: Please follow-up with primary care provider in the next few days Please follow up with resources provided to you by your director social welfare. We have given you several applications, resources for [place] [facility] etcetera Prescriptions: No Action (DME) Adult Diapers Qty: 30 RF: 12 aspirin 325 mg tablet 325 mg PO DAILY RF: 0 (DME) DISABLED PARKING PLACARD Qty: 1 RF: 0 ergocalciferol (vitamin D2) 50,000 unit capsule 50,000 unit PO QWEEK Qty: 4 RF: 12 atorvastatin 40 mg tablet 40 mg PO BEDTIME Qty: 90 RF: 3 oxybutynin chloride 5 mg tablet 5 mg PO BID-TID PRN (Reason: bladder spasms) Qty: 90 RF: 1 tamsulosin [Flomax] 0.4 mg capsule 0.4 mg PO BEDTIME Qty: 90 RF: 1 Referrals: Katia Frances PA-C [Primary Care Provider] -
[2019-11-16 17:18] VITALS: BP 127/73; PULSE 93; RESP 16; TEMP 36.8; O2SAT 97
--- NOTE | 2019-11-16 20:13 | CM.DANOTE ---
DCP/Assessment: Patient is a 74yr old homeless male with repeated visits to [facility] with complaints of UTI/unsteady gait and maladaption to homelessness. Patient known to this ALUMINUM POLISHER from previous repeat visits (see notes for details). Spoke with provider/Kat Simmons and Dr. Esquivel re: d/c plan. Both report that patient is medically stable to return to previous environment. Met with patient explained ALUMINUM POLISHER role. Patient alert and oriented during interview. Patient reports that he has been having difficulty staying in his truck due to mobility/urination issues. Patient reports he rarely uses his walker. Patient does have cane in room. ALUMINUM POLISHER requested that ED staff get patient out of bed to ambulate. Patient ambulated to satisfaction of staff with cane in room. This ALUMINUM POLISHER placed call to Electrical Maintenance Mechanic/Yanick Browning and several shelters in [facility]. All shelters closed after business hours. Left message at [employer] in [place]. Esquivel assessed and no need for hospitalization at this time. Patient provided with resources for shelters, mental health, and encouraged to f/u with [facility] re: pending [facility] application. Patient denies suicidal or homicidal ideation. P: Return to previous level of care. Patient encouraged to follow up with pending social service agencies. KAM Cote Discharge Planning/Care Management CM Discharge Assessment Start: 11/16/19 20:12 Freq: Status: Active Protocol: Document 11/16/19 20:12 JULEES (Rec: 11/16/19 20:12 CHRISTIANO [id number])
--- NOTE | 2019-11-24 15:01 | CM.DPNOTE ---
Spoke to Ankur Isaac (reached him @ [phone]) - the pts. ELLIOTT disease case manager rn about this patient and our concerns about discharging him to the street. Requested his help placing him in an adult family home (AFH). Ankur stated that he was going to reach out to [facility] about a place in either her [facility] or [place] [facility]. He was going to call Kristin at [phone] today to let her know the status of the AFH and discuss a plan for this patient.
--- NOTE | 2019-11-28 11:10 | CM.DPNOTE ---
Pt. Fsr - Ankur Isaac - let us know he is working on updating the patient's level status (not in the assessment). He also faxed the patient assessment to assist CM with bullet charging machine operator housing in the event that the patient returns to for care. The assessment is from end of 2018 - done during patient's last IP stay here at . A copy of the assessment is in the CM office. In an orange folder on the desk by the window that I Carey) uses. A copy is also in the CM Director Of Recruitment And Admissions's office - safety precaution.
== END 2019-11-16 20:17 | disposition home or self-care (01) ==
PROVIDERS: Emergency Provider Nurse Practitioner Family; PCP Physician Assistant
DX: S09.90XA Unspecified injury of head, initial encounter (principal); I10 Essential (primary) hypertension; W01.0XXA Fall on same level from slipping, tripping and stumbling without subsequent striking against object, initial encounter; Z59.0 Homelessness
CPT/HCPCS: 36415; 70450; 71101; 73080; 80053; 80320; 81003; 81015; 82550; 82553; 84484; 85025; 85610; 87077; 87086; 87186; 93005; 93010; 99283; 99285

== ENCOUNTER 2019-11-17 05:17 | Emergency (ER) | payer MEDICARE, MEDICAID, SELFPAY ==
[2019-11-17 05:25] VITALS: BP 125/81; PULSE 86; RESP 14; TEMP 36.7; O2SAT 94
--- NOTE | 2019-11-17 05:41 | ED_ITS ---
HPI - General Adult <Beto Esquivel DO - Last Filed: 11/17/19 19:08> General Chief complaint: Weakness Stated complaint: confused/disoriented Time Seen by Provider: 11/17/19 05:33 Source: patient Mode of arrival: Ambulatory Limitations: no limitations History of Present Illness HPI narrative: Patient is a 74-year-old male. Well known to myself. He is a gentleman who is homeless in the local area. He is also incontinent to urine. This are not new symptoms for him. He was seen yesterday here in the emergency department for similar symptoms he has been seen for in the past. He was seen by social work during his last visit. He has been seen by social work in the past. He does have assistance however every time he has been offered help with the stab wishing things like shelter facility the patient has declined. Patient has chronic urinary issues. He was weak in the emergency department yesterday however unfortunately was at his baseline and does not meet criteria to be admitted to the hospital. He was discharged. It was after dark when he was discharged and he does not drive after dark. He was sleeping in his vehicle in the parking lot here in the hospital when the software security consultant noticed it this morning. He when asked the patient to move his car this morning. While doing this the patient seemed to have difficulty moving his car so the police were called. He was brought back into the emergency department. During my evaluation patient seemed to be at baseline per my prior evaluations of him. He does describe weakness his left lower extremity however this is not necessarily new. He is not confused. He states that he would like a couple coffee. He also states he is now willing to talk with social Work about potential other living situations. Related Data Home Medications Medication Instructions Recorded Confirmed aspirin 325 mg tablet 325 mg PO DAILY 02/23/19 11/17/19 Previous Rx's Medication Instructions Recorded Adult Diapers #30 each 08/10/18 DISABLED PARKING PLACARD #1 ea 09/27/18 ergocalciferol (vitamin D2) 50,000 50,000 unit PO QWEEK #4 cap 06/28/19 unit capsule atorvastatin 40 mg tablet 40 mg PO BEDTIME #90 tab 11/07/19 oxybutynin chloride 5 mg tablet 5 mg PO BID-TID PRN #90 tab 11/07/19 tamsulosin 0.4 mg capsule 0.4 mg PO BEDTIME #90 cap 11/07/19 Allergies Allergy/AdvReac Type Severity Reaction Status Date / Time No Known Drug Allergies Allergy Verified 11/16/19 12:22 Review of Systems <Beto Esquivel DO - Last Filed: 11/17/19 19:08> Constitutional Constitutional: Denies fever(s) and Denies headache(s) ENT Ears, Nose, Mouth, and Throat: Denies headache(s) Cardiovascular Cardiovascular: Denies chest pain and Denies dyspnea Respiratory Respiratory: Denies cough and Denies dyspnea Gastrointestinal Gastrointestinal: Denies abdominal pain, Denies nausea and Denies vomiting Genitourinary Genitourinary: Reports urinary incontinence Musculoskeletal Comments: Leg weakness Integumentary/Breasts Skin/Breast: Denies lesions and Denies rash Neurologic Neurologic: Denies behavioral changes and Denies headache(s) Psychiatric Psychiatric: Denies behavioral changes Hematologic/Lymphatic Hematologic/Lymphatic: Denies easy bleeding and Denies easy bruising Patient History <DO Zuleika Wallis Last Filed: 11/17/19 19:08> Medical History Arthritis (Chronic) BPH (benign prostatic hyperplasia) (Chronic) Colon polyps (Resolved) Depression (Chronic) Hernia (Resolved) History of alcohol abuse (Resolved 1980) Hyperlipemia (Chronic) Hypertension (Chronic) Osteopenia (Chronic) Osteoporosis (Chronic) Shoulder pain (Resolved) Urinary retention (Resolved ~04/2017) Social History household members: none Smoking Status: Never smoker second hand exposure: No alcohol intake: former substance use type: does not use Smoking Status: Never smoker alcohol intake frequency: 0-2 drinks per day Substance Use Type: does not use Exam <DO Zuleika Wallis Last Filed: 11/17/19 19:08> Initial Vital Signs Initial Vital Signs: Vital Signs Temperature 98.1 F 11/17/19 05:25 Pulse Rate 86 11/17/19 05:25 Respiratory Rate 14 11/17/19 05:25 Blood Pressure 125/81 11/17/19 05:25 Pulse Oximetry 94 11/17/19 05:25 Const General: cooperative and disheveled Orientation: alert and awake HENPA Head: normal to inspection and normocephalic Resp Effort & Inspection: normal respiratory effort Cardio Rate: regular rate Skin Lesions: no lesions Rashes: no rashes Neuro General: alert and awake Speech: speech normal Extrem General: No edema Psych Appearance: disheveled <DO Zuleika Zamora Last Filed: 11/17/19 18:20> Initial Vital Signs Initial Vital Signs: Vital Signs Temperature 98.1 F 11/17/19 05:25 Pulse Rate 86 11/17/19 05:25 Respiratory Rate 14 11/17/19 05:25 Blood Pressure 125/81 11/17/19 05:25 Pulse Oximetry 94 11/17/19 05:25 Course <DO Zuleika Wallis Last Filed: 11/17/19 19:08> Orders Ordered: Discontinued Medications Levofloxacin (Levaquin) 750 mg PO NOW ONE Stop: 11/17/19 09:53 Last Admin: 11/17/19 10:05 Dose: 750 mg Documented by: ONELIA Vital Signs Vital signs: Vital Signs - 8 hr 11/17/19 12:10 11/17/19 14:14 Pulse Rate 78 Respiratory Rate 16 Blood Pressure 126/84 Blood Pressure [Left Arm] 107/58 L Pulse Oximetry 97 <Kat Pettit DO - Last Filed: 11/17/19 18:20> Orders Ordered: Discontinued Medications Levofloxacin (Levaquin) 750 mg PO NOW ONE Stop: 11/17/19 09:53 Last Admin: 11/17/19 10:05 Dose: 750 mg Documented by: ONELIA Vital Signs Vital signs: Vital Signs - 8 hr 11/17/19 12:10 11/17/19 14:14 Pulse Rate 78 Respiratory Rate 16 Blood Pressure 126/84 Blood Pressure [Left Arm] 107/58 L Pulse Oximetry 97 Medical Decision Making <DO Zuleika Wallis Last Filed: 11/17/19 19:08> Lab Data Result diagrams: 11/17/19 09:40 11/17/19 09:40 Labs: Lab Results 11/17/19 11/17/19 11/17/19 Range/Units 09:40 09:40 09:40 WBC 9.7 (4.5-11.0) X10^3/uL RBC 4.32 L (4.5-5.9) X10^6/uL Hgb 13.6 (13.5-17.5) g/dL Hct 40.0 L (41-53) % MCV 92.6 (80-100) fL MCH 31.4 (26-34) PG MCHC 33.9 (30-36) % RDW 13.1 (11.6-14.8) % Plt Count 291 (150-400) X10^3/uL Neut % (Auto) 72.6 (50-75) % Lymph % (Auto) 17.7 L (25-40) % [place] % (Auto) 7.7 (3-14) % Eos % (Auto) 0.7 L (2-4) % Baso % (Auto) 1.3 (0-2) % Neut # (Auto) 7000 (7145-3176) /uL Lymph # (Auto) 1700 (2927-0497) /uL [place] # (Auto) 700 (0-900) /uL Eos # (Auto) 100 (0-450) /uL Baso # (Auto) 100 (0-100) /uL Sodium 142 (137-145) mmol/L Potassium 3.9 (3.4-5.1) mmol/L Chloride 112 H (98-107) mmol/L Carbon Dioxide 21 L (22-32) mmol/L BUN 28 H (9-20) mg/dL Creatinine 0.80 (0.66-1.25) mg/dL Estimated GFR > 60.0 (>60) mL/min BUN/Creatinine Ratio 35.0 H (6-22) Glucose 139 H (80-110) mg/dL Calcium 8.8 (8.4-10.2) mg/dL Total Bilirubin 0.7 (0.2-1.3) mg/dL AST 29 (17-59) IU/L ALT 21 (<50) IU/L Alkaline Phosphatase 73 (38-126) U/L Total Protein 6.4 (6.3-8.2) g/dL Albumin 3.5 (3.5-5.0) g/dL Globulin 2.9 (1.7-4.1) g/dL Albumin/Globulin Ratio 1.2 (1.0-2.8) TSH 0.97 (0.47-4.68) uIU/mL Ethyl Alcohol < 10 ( - 10) mg/dL MDM Narrative Medical decision making narrative: The only significant finding from his ER visit yesterday was that his urine potentially has been infected. He has had multiple urinalysis that look like this in the past and various cultures some of them have been positive [place] been negative. The decision was made at that time did not prescribe any antibiotics and wait for any positive cultures. Had a long discussion with the patient this morning regarding his symptoms. I asked him if the reason he is here is because the software security consultant made him move his truck and he was unable to do so. He did again states that he was weak in his left lower extremity. He had asked to see Physical therapy to walk him up and down the hallway. I informed him that that would most likely be on helpful given his situation. We had a discussion stating that he has been seen by social work multiple times in the past to aid with helping him find other living situations that he has always declined these. He states that this morning he would be willing to potentially look at other living situations. Social work consult was placed. Did not feel the need to redraw any blood work. Care was turned over today provider upon after social Work sees patient. <Kat Pettit, DO - Last Filed: 11/17/19 18:20> Lab Data Labs: Lab Results 11/17/19 11/17/19 11/17/19 Range/Units 09:40 09:40 09:40 WBC 9.7 (4.5-11.0) X10^3/uL RBC 4.32 L (4.5-5.9) X10^6/uL Hgb 13.6 (13.5-17.5) g/dL Hct 40.0 L (41-53) % MCV 92.6 (80-100) fL MCH 31.4 (26-34) PG MCHC 33.9 (30-36) % RDW 13.1 (11.6-14.8) % Plt Count 291 (150-400) X10^3/uL Neut % (Auto) 72.6 (50-75) % Lymph % (Auto) 17.7 L (25-40) % [place] % (Auto) 7.7 (3-14) % Eos % (Auto) 0.7 L (2-4) % Baso % (Auto) 1.3 (0-2) % Neut # (Auto) 7000 (0328-9104) /uL Lymph # (Auto) 1700 (1914-4314) /uL [place] # (Auto) 700 (0-900) /uL Eos # (Auto) 100 (0-450) /uL Baso # (Auto) 100 (0-100) /uL Sodium 142 (137-145) mmol/L Potassium 3.9 (3.4-5.1) mmol/L Chloride 112 H (98-107) mmol/L Carbon Dioxide 21 L (22-32) mmol/L BUN 28 H (9-20) mg/dL Creatinine 0.80 (0.66-1.25) mg/dL Estimated GFR > 60.0 (>60) mL/min BUN/Creatinine Ratio 35.0 H (6-22) Glucose 139 H (80-110) mg/dL Calcium 8.8 (8.4-10.2) mg/dL Total Bilirubin 0.7 (0.2-1.3) mg/dL AST 29 (17-59) IU/L ALT 21 (<50) IU/L Alkaline Phosphatase 73 (38-126) U/L Total Protein 6.4 (6.3-8.2) g/dL Albumin 3.5 (3.5-5.0) g/dL Globulin 2.9 (1.7-4.1) g/dL Albumin/Globulin Ratio 1.2 (1.0-2.8) TSH 0.97 (0.47-4.68) uIU/mL Ethyl Alcohol < 10 ( - 10) mg/dL MDM Narrative Medical decision making narrative: Labs, CT and xray imaging were reviewed from yesterday's visit. Patient seen by myself. He is known to the department and is currently homeless and living out of his car. Patient was initially discharged and normally lives in his car. He was asked to move his vehicle last night and had some difficulty PD was called and patient was return to the ER. On my evaluation patient is alert but seems a little bit more disheveled in normal, he also mentions that there are people in the back of his truck like from the Walking . He told social work that they are invisible. Patient initial labs do not show major abnormalities he does have urinalysis which could be positive for UTI with occult blood, trace leuks negative for nitrates. Patient had no bacteria seen and was cultured. His cultures have come back intermittently positive and negative in the past 3 months. On exam he does have some scabs on his buttocks consistent with skin breakdown that is attempting to heal. Patient does not wish hospitalization and although having some hallucinations is alert and understands his choices. Social work evaluated several different sources, patient has a [facility] also worker who's been attempting to get him placement. They have found him housing for tonight and patient was encouraged to return if he changes his mind. Discharge Plan Departure Patient Disposition: Home Clinical Impression: UTI (urinary tract infection), Buttock wound Discharge Date/Time: 11/17/19 14:15 Instructions: DI for Urinary Tract Infection (UTI) Activity Restrictions/Additional Instructions: Follow-up with primary care and your states social media assistant for re-evaluation. It is recommended that you look into or pursue other potential placement options. Social Work has evaluated today. Please note the information given to you by social work. Your urine does show a positive culture and you were started on antibiotics, the final culture has not been released so you may receive a phone call to update your antibiotics. Return to the ER for fevers greater than 100.4 F, worsening symptoms, new chest pain, shortness of breath, new abdominal or flank pain, worsening breakdown of the skin or other new or concerning symptoms. Prescriptions: No Action (DME) Adult Diapers Qty: 30 RF: 12 aspirin 325 mg tablet 325 mg PO DAILY RF: 0 (DME) DISABLED PARKING PLACARD Qty: 1 RF: 0 ergocalciferol (vitamin D2) 50,000 unit capsule 50,000 unit PO QWEEK Qty: 4 RF: 12 atorvastatin 40 mg tablet 40 mg PO BEDTIME Qty: 90 RF: 3 oxybutynin chloride 5 mg tablet 5 mg PO BID-TID PRN (Reason: bladder spasms) Qty: 90 RF: 1 tamsulosin [Flomax] 0.4 mg capsule 0.4 mg PO BEDTIME Qty: 90 RF: 1 Referrals: Katia Frances PA-C [Primary Care Provider] -
[2019-11-17 08:08] VITALS: BP 130/84; PULSE 78; RESP 18; O2SAT 97
--- NOTE | 2019-11-17 08:27 | PC.NURSE ---
here to see patient.
--- NOTE | 2019-11-17 08:37 | PC.NURSE ---
Pt provided breakfast tray while he awaits PLOW AND BORING MACHINE TENDER.
--- NOTE | 2019-11-17 08:39 | PC.NURSE ---
Patient wanted to sit at bedside to eat. He asked me if I saw the black eyes talking to him from the corner. I said there was no one in the room but us, to which he laughed at me. Patient is aware not to get up from bed without help.
[2019-11-17 09:58] LABS: Add Manual Diff / Slide Review NO; Basophils Absolute Auto 100 /uL (0-100); Basophils Percent Auto 1.3 % (0-2); Eosinophils Absolute Auto 100 /uL (0-450); Eosinophils Percent Auto 0.7 % (2-4); Hemoglobin 13.6 g/dL (13.5-17.5); Lymphocytes Absolute Auto 1700 /uL (1100-4500); Lymphocytes Percent Auto 17.7 % (25-40); Mean Corpuscular HGB Conc 33.9 % (30-36); Mean Corpuscular Hemoglobin 31.4 PG (26-34); Mean Corpuscular Volume 92.6 fL (80-100); Monocytes Absolute Auto 700 /uL (0-900); Monocytes Percent Auto 7.7 % (3-14); Neutrophils Absolute Auto 7000 /uL (1500-7000); Neutrophils Percent Auto 72.6 % (50-75); Platelet Count 291 X10^3/uL (150-400); Red Blood Cell Count 4.32 X10^6/uL (4.5-5.9); Red Cell Distribution Width 13.1 % (11.6-14.8); White Blood Cell Count 9.7 X10^3/uL (4.5-11.0)
[2019-11-17] MEDS: levoFLOXacin 250 MG TABLET 750 MG PO (10:05)
[2019-11-17 10:10] LABS: Alanine Aminotransferase 21 IU/L (<50); Albumin 3.5 g/dL (3.5-5.0); Albumin Globulin Ratio 1.2 (1.0-2.8); Alkaline Phosphatase 73 U/L (38-126); Aspartate Aminotransferase 29 IU/L (17-59); Bilirubin Total 0.7 mg/dL (0.2-1.3); Blood Urea Nitrogen 28 mg/dL (9-20); Calcium 8.8 mg/dL (8.4-10.2); Carbon Dioxide 21 mmol/L (22-32); Chloride 112 mmol/L (98-107); Estimated Glomerular Filt Rate > 60.0 mL/min (>60); Ethanol (ETOH) < 10 mg/dL; Globulin 2.9 g/dL (1.7-4.1); Glucose 139 mg/dL (80-110); HEMOLYSIS < 15 (0-50); Potassium 3.9 mmol/L (3.4-5.1); Sodium 142 mmol/L (137-145); Total Protein 6.4 g/dL (6.3-8.2)
[2019-11-17 10:47] LABS: Thyroid Stimulating Hormone 0.97 uIU/mL (0.47-4.68)
--- NOTE | 2019-11-17 11:26 | PC.NURSE ---
I went in to check on patient. He stated he messed himself because he is unable to get up or let us know he had to go. I changed his brief & pants, bedsheets, put him on the bed ruiz so he could finish his bowel movement. Patient had stool all over his privates and testicles. His bottom was red with pitted sores and puss. We are going to go in with the RN and DR to assess his bottom and privates.
[2019-11-17 12:10] VITALS: BP 107/58
--- NOTE | 2019-11-17 14:12 | PC.NURSE ---
incontinence care provided. new brief and patient pack change of clothes provided. pt assisted into WC. sitting out in WR talking to psychiatric social worker waiting for friend Yanick to arrive to take him to Motel that has been provided to him for the night via [employer]. Pt set up with tray table and lunch from dietary.
[2019-11-17 14:14] VITALS: BP 126/84; PULSE 78; RESP 16; O2SAT 97
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
--- NOTE | 2019-11-20 08:50 | CM.SWNOTE ---
DCP/Continued: Reviewed notes from ED visit(s) on 11-16 and 11-17. Patient currently not in our Emergency Department as of 8:50AM. Left vm with patient home and community CM/Darin Isaac ph# [phone] re: potential placement at [facility] in [place], [facility] ph# [phone] or [phone]. CM team has received recent calls from owner operator of [facility]/[place]? indicating that they do have beds. TYPE PROOF REPRODUCER requesting that EARL CM attempt to reach [facility] about this patient and attempt location of patient. P: Ongoing search for nursing home placement for homeless gentlemen that frequently returns to the [facility] Emergency Department. KAM Cote
--- NOTE | 2019-11-25 09:30 | CM.DPC ---
Addendum entered by Kristin Carrion 11/27/19 14:32: D/C planning continued attempts: Placed call to [facility] at [phone], vegetable washer reports no current male medicaid beds. Asked vegetable washer if she had received call from Ankur Isaac from [facility]. Marine Equipment Sales Engineer unsure? Placed call to Ankur at [facility] to discuss continued long-term options for patient. Ankur reports that he has sent referral to (2) Adult Family Homes but has not heard back. Notified Ankur that [facility] in [place] that accepts medicaid does not have male bed. Ankur reports that he will call [facility] in [place] and see if they have any male beds. Ankur acknowledges that patient not currently patient at [facility]. Notified Ankur that CM team working to prevent patient from having to return to his car when he returns to ED. Patient has had home and community assessment completed, does qualify for placement at low rate around $90.00 per day? Asked Ankur to fax copy of assessment to CM department and he is agreeable. Per Ankur, previous plan for patient was for patient to go to [facility]. Per Ankur, they decided not to accept secondary to patient level 2 sex offender status. Encouraged Ankur to continue to attempt placement and assist CM department in doing so. Patient currently resides in his car and CM team hopeful that we will be able to provide patient with housing choices/options when he returns to ED. Ankur reports that patient will have to be agreeable to go to long-term placement if one found. Ankur concerned that once patient feeling better he will want to return to his previous lifestyle. P: Continue to work with [facility] Community re: long-term placement. KAM Cote Original Note: DCP/continued: Received call back from EARL/ZEYNEP Isaac ph# [phone]. He left message indicating that he has sent referral to 2 adult family homes 1 in area and 1 out of area. He proceeded to mention that he had not heard back from either on 11-24-19. P: CM team will continue to follow up closely with ZEYNEP/EARL re: placement for this unfortunate gentlemen. KAM Cote
--- NOTE | 2019-11-28 11:19 | CM.DPNOTE ---
I accidently updated patient plan of care on pt. chart from 11/16. Please refer there to my notes - especially the one from 11/28 that explains about the assessment that the EARL casey saw operator faxed to the CM office.
--- NOTE | 2019-12-11 16:14 | CM.SWNOTE ---
DCP/WHISKEY PROOF READER note: Received call from [facility] (Molly) ph# [phone] fax# [phone]. Per Molly patient currently hospitalized at [facility] with suspected sepsis. Molly requesting any updates and or contacts for community services that patient receiving. Provided Molly with name/number of EARL Isaac ph# [phone]. Per Molly, she anticipates patient will need long-term IV abx. She is considering swing bed at [facility]. Asked Molly to keep I.H. WHISKEY PROOF READER team up to date. In addition, placed call to Ankur with EARL to provide him with update and request that he contact [facility] to assist with d/c planning. KAM Cote
== END 2019-11-17 14:15 | disposition home or self-care (01) ==
PROVIDERS: Emergency Provider Emergency Medicine; PCP Physician Assistant
DX: N39.0 Urinary tract infection, site not specified (principal); S30.91XA Unspecified superficial injury of lower back and pelvis, initial encounter; R44.3 Hallucinations, unspecified
CPT/HCPCS: 80053; 80320; 84443; 85025; 99281; 99283

== ENCOUNTER 2019-12-31 10:31 | Emergency (ER) | payer MEDICARE, MEDICAID, SELFPAY ==
[2019-12-31 10:35] VITALS: BP 125/71; PULSE 84; RESP 20; TEMP 36.7; O2SAT 96; BMI 21.2
[2019-12-31 12:45] VITALS: BP 135/86; PULSE 71; RESP 19; O2SAT 98
--- NOTE | 2019-12-31 12:46 | PC.NURSE ---
patient incontient of urine , Says the attends has been on a long time . Lives in his car and it is hard to change hsi brief. Patient washed up and sking barrier cream applied over very excoriated kami area. No broken skin but very red rash in groin and over buttock from the urine being on the skin for so long. Clean dry clothes placed on patient after sponge bath given. Patient stood but says he uses walker to get around Drink and sandwich given to patient earlier.
--- NOTE | 2019-12-31 13:05 | ED.MALEGU ---
HPI - Male Genitourinary <HUGO Davis - Last Filed: 12/31/19 19:42> General Chief complaint: Urogenital-Male Stated complaint: Confusion Time Seen by Provider: 12/31/19 11:17 Source: EMS Mode of arrival: EMS Limitations: no limitations History of Present Illness HPI Narrative: This is a 74-year-old male, nonsmoker, who is a homeless and well-known to this ED was brought by EMS for medical evaluation. Patient states he walked using a walker from [employer] lot to grab a cup of coffee. He lives in his car which is now parked at [email or web address] [employer]. The shop keeper thought the patient needs assistance and paramedics was did expect to. Patient denies any new discomfort, nausea, vomiting, fever, chills, breathing difficulty, chest pain, new urinary symptoms or fall today. Patient does have chronic urinary incontinence and uses peripads. Patient states he has right leg discomfort but this is not new. Patient reports he had not eaten for about 24 hours and his pad needs to be changed. Patient states he was recently was in [facility] for at least about 2 weeks and was hospitalized in [facility]. Patient traveled to [place] not with his own car for homeless mission initially. Patient does expressed wishes to find the long-term care facility but states has been turned down. Related Data Home Medications Medication Instructions Recorded Confirmed aspirin 325 mg tablet 325 mg PO DAILY 02/23/19 11/17/19 Previous Rx's Medication Instructions Recorded Adult Diapers #30 each 08/10/18 DISABLED PARKING PLACARD #1 ea 09/27/18 ergocalciferol (vitamin D2) 1,250 50,000 unit PO QWEEK #4 cap 06/28/19 mcg (50,000 unit) capsule atorvastatin 40 mg tablet 40 mg PO BEDTIME #90 tab 11/07/19 oxybutynin chloride 5 mg tablet 5 mg PO BID-TID PRN #90 tab 11/07/19 tamsulosin 0.4 mg capsule 0.4 mg PO BEDTIME #90 cap 11/07/19 Allergies Allergy/AdvReac Type Severity Reaction Status Date / Time No Known Drug Allergies Allergy Verified 11/16/19 12:22 Review of Systems <HUGO Davis - Last Filed: 12/31/19 19:42> Review of Systems Narrative: General: Denies fever, chills, fatigue, malaise, sweats. HEENT: Denies sinus pain, ear pain, sore throat, difficulty swallowing, dizziness. Respiratory: Denies dyspnea, cough, wheezing, hemoptysis, sputum. Cardiovascular: Denies chest pain, palpitations, orthopnea, edema. Gastrointestinal: Denies nausea, vomiting, abdominal pain, diarrhea, constipation, melena. : Denies dysuria, frequency, (+) incontinence, hematuria, urinary retention. Musculoskeletal: Denies weakness, joint pain or bony pain. Skin: Denies rash, skin lesions, or other. Neurologic: Denies weakness, headache, numbness, change in speech, confusion, seizures, incoordination. Psychiatric: No concerning psychosocial issues. 12-point review of systems is negative except for those stated above. Patient History <HUGO Davis - Last Filed: 12/31/19 19:42> Medical History Arthritis (Chronic) BPH (benign prostatic hyperplasia) (Chronic) Colon polyps (Resolved) Depression (Chronic) Hernia (Resolved) History of alcohol abuse (Resolved 1980) Hyperlipemia (Chronic) Hypertension (Chronic) Osteopenia (Chronic) Osteoporosis (Chronic) Shoulder pain (Resolved) Urinary retention (Resolved ~04/2017) Surgical History History of cataract removal with insertion of prosthetic lens (02/2016) Hx of cystoscopy (Acute 04/2017) Hx of transurethral resection of prostate (Resolved 04/2017) Status post colectomy (2010) Status post hernia repair (05/2013) Family History Father Alcohol abuse Smoker Mother Osteoporosis Social History household members: none Smoking Status: Never smoker second hand exposure: No alcohol intake: former substance use type: does not use Smoking Status: Never smoker alcohol intake frequency: 0-2 drinks per day Substance Use Type: does not use Exam <HUGO Davis - Last Filed: 12/31/19 19:42> Narrative Exam Narrative: GEN: Alert, oriented x 3, well appearing and nourished, and in no acute distress. Head: Normal cephalic, atraumatic. No scalp or temporal tenderness, palpable mass or rash. EYES: Pupils are equal, round, and reactive to light and accommodation. Extraocular muscles are intact bilaterally. There is no subconjunctival hemorrhage, exudate and sclera non-icteric. ENT: Bilateral auditory canals and tympanic membranes clear. Hearing grossly intact. Nose without bleeding, purulent discharge or deviation. Facial sinuses nontender to palpate. Mucous membrane moist, no mucosal lesion. Throat without erythema, tonsillar hypertrophy or exudate. Uvula in midline, airway patent. Neck: Trachea in midline. No JVD, non-tender without lymphadenopathy. No masses or thyroid megaly. Supple, non-tender and no meningeal signs. CARDIAC: Normal regular rate and rhythm without murmurs, gallops, or rubs. No chest wall tenderness. No peripheral edema, cyanosis or pallor. Capillary refill is less than 2 seconds. RESPIRATORY: Lungs are clear to auscultate bilaterally. No cough, wheezes, rales, or rhonchi. No stridor, respiratory distress, increase work of breathing, or accessary muscle used. ABD: Abdomen soft, nontender and non-distended. No guarding or rebound tenderness to palpate. Bowel sounds are normal in all 4 quadrants. There is no palpable masses or organomegaly. Strong Urinary incontinence ordor in the room. EXT: Full painless ROM of all extremities with no loss of sensation, strength, effusion or edema. SKIN: Warm, dry, normal color for patient. No erythema, lesions or rash over visible areas. BACK: Nontender without deformity or crepitance. No flank tenderness. NEUROLOGICAL: Alert and oriented to place, time and person. Sensation and motor function intact bilaterally. No facial droops, dysphasia. PSYCHIATRIC: Cooperative, thought process normal without hallucinations, abnormal affect or abnormal behaviors during the examination. Patient is not suicidal. Initial Vital Signs Initial Vital Signs: Vital Signs Temperature 98.1 F 12/31/19 10:35 Pulse Rate 84 12/31/19 10:35 Respiratory Rate 20 12/31/19 10:35 Blood Pressure 125/71 12/31/19 10:35 Pulse Oximetry 96 12/31/19 10:35 <Beto Esquivel DO - Last Filed: 12/31/19 19:51> Initial Vital Signs Initial Vital Signs: Vital Signs Temperature 98.1 F 12/31/19 10:35 Pulse Rate 84 12/31/19 10:35 Respiratory Rate 20 12/31/19 10:35 Blood Pressure 125/71 12/31/19 10:35 Pulse Oximetry 96 12/31/19 10:35 Scores <HUGO Davis - Last Filed: 12/31/19 19:42> GCS [place] coma scale eye opening: Spontaneous Genaro coma scale verbal response: Orientated [place] coma scale motor response: Obey commands [place] coma scale total score: 15 Course <HUGO Davis - Last Filed: 12/31/19 19:42> Orders Ordered: ED Orders 12/31/19 11:24 Consult to [facility] Senior Financial Reporting Analyst Stat 12/31/19 11:34 Consult to [facility] Senior Financial Reporting Analyst Stat Vital Signs Vital signs: Vital Signs - 8 hr 12/31/19 12:45 Pulse Rate 71 Respiratory Rate 19 Blood Pressure [Left Arm] 135/86 Pulse Oximetry 98 <Beto Esquivel DO - Last Filed: 12/31/19 19:51> Orders Ordered: ED Orders 12/31/19 11:24 Consult to [facility] - Senior Financial Reporting Analyst Stat 12/31/19 11:34 Consult to [facility] Senior Financial Reporting Analyst Stat Vital Signs Vital signs: Vital Signs - 8 hr 12/31/19 12:45 Pulse Rate 71 Respiratory Rate 19 Blood Pressure [Left Arm] 135/86 Pulse Oximetry 98 MDM - Male Genitourinary <HUGO Davis - Last Filed: 12/31/19 19:42> Differential Diagnosis Differential diagnosis: Likely other (Urinary incontinence, encounter for medical evaluation) Medical Records Attestation: I reviewed the patient's medical records. MDM Narrative Medical decision making narrative: This is a 74-year-old gentleman who was brought in by EMS from local market when the patient to get a cup of coffee the assistant store leader thought the patient needed an assistance and called EMS/APD. This gentleman is well known to ED and is a homeless and lives in a car currently. Patient denies fever, chills, nausea, vomiting or any new or increasing pain. Patient has long history of urinary incontinence and there is no changes of this today. Patient's request is getting his Kayy pads changed since this has not been done for last 24 hours and he has not been eating or drinking much for last 24 hours. Patient's request has been addressed. The patient was medically cleared by physical assessment and stable vital signs. INSPECTOR FLOOR SUB ASSEMBLY Stephanie Randhawa has consulted for the patient's social needs and assistance. Patient is hoping to find a place for terminal computer operator facility placement. Stephanie left a message to the patient's nurse healthcare manager Darin Isaac to inform the patien't today's visit to ER and to coordinate care for his needs. Return precautions were discussed with the patient and patient verbalized understanding and the patient was discharged to his vehicle via taxi. Discharge Plan Departure Patient Disposition: Home Clinical Impression: Homelessness Urinary incontinence Qualifiers: Urinary Incontinence type: unspecified incontinence Qualified Code(s): R32 - Unspecified urinary incontinence Discharge Date/Time: 12/31/19 14:30 Instructions: DI for Urinary Incontinence Activity Restrictions/Additional Instructions: You have been diagnosed with [history of urinary incontinence but without other urinary symptoms and homeless]. What to do: *Take your current medications as directed. You were assisted by our INSPECTOR FLOOR SUB ASSEMBLY for assistance with your living situation. *Follow up with your primary care provider in 2-3 days, call for an appointment. Let them know you were seen in the ED and that we asked you to be seen in follow up. *Return to ED if you have any new, worsening, or concerning symptoms, such as [fever, pain, breathing difficulty, chest pain, unable to tolerate fluids, or any acute concerns]. Prescriptions: No Action (DME) Adult Diapers Qty: 30 RF: 12 aspirin 325 mg tablet 325 mg PO DAILY RF: 0 (DME) DISABLED PARKING PLACARD Qty: 1 RF: 0 ergocalciferol (vitamin D2) 50,000 unit capsule 50,000 unit PO QWEEK Qty: 4 RF: 12 atorvastatin 40 mg tablet 40 mg PO BEDTIME Qty: 90 RF: 3 oxybutynin chloride 5 mg tablet 5 mg PO BID-TID PRN (Reason: bladder spasms) Qty: 90 RF: 1 tamsulosin [Flomax] 0.4 mg capsule 0.4 mg PO BEDTIME Qty: 90 RF: 1 Referrals: Katia Frances PA-C [Primary Care Provider] - <Beto Esquivel, - Last Filed: 12/31/19 19:51> Sign Out Provider Sign Out Attestation: Dr Esquivel Co-Sign Statement: I was available for consultation during this patient's emergency department visit. This chart is signed by myself for administrative purposes only. I did not have direct contact with this patient during this visit. They were seen independently by the APC.
--- NOTE | 2019-12-31 15:40 | CM.SWNOTE ---
Addendum entered by Kristin Carrion 01/01/20 14:23: Received call from [facility] [phone]. Yanick reports that he would like to be called next time patient comes to the Emergency Department. Original Note: Patient is a 74 year old male who was admitted to [facility] on 12/31/19 for confusion/urine. Per MD, pt was [place] local market and staff felt pt was somewhat unsteady, confused, and smelling of urine and called police and he was brought to the ED. Pt is well known to hospital staff and police dept as he is homeless and has two vehicles he moves around [place]. Per MD, pt is medically stable to d/c and no medical reason to admit. SW met bedside with pt and explained role and he confirms that he went up to [place] to try to get into the [facility] up there and ended up in [facility] and required a couple weeks of IV-Abx before being discharged back to his vehicle. Pt now back in [place] and states his main contact/support that coordinates his care is still Jean-Claude Johnson ([phone]) and has been coordinating with [facility] Darin Isaac ([phone]) towards emt intermediate care placement. Pt states he has a hard time remembering things but that he has met a couple times with Jean-Claude and Darin together. Pt aware that he does not have a medical reason to be admitted and he is looking forward to emt intermediate placement and states Jean-Claude was also trying to help his Sex Offender level be dropped from level 2 to level 1 as it has been over 20 years. ANGELES left msg for Darin with [facility] and pt's support person Jean-Claude inquiring as to where things are at with placement and options as well as the previous discussion regarding the possibility of getting Guardianship for the pt as he is having increasing memory issues and hallucinations. Plan: Patient to d/c back to his vehicle via taxi and ongoing efforts with [facility] for emt intermediate placement. KAM Basilio
== END 2019-12-31 14:30 | disposition home or self-care (01) ==
PROVIDERS: Emergency Provider Nurse Practitioner Family; PCP Physician Assistant
DX: R32 Unspecified urinary incontinence (principal); Z59.0 Homelessness
CPT/HCPCS: 99281

== ENCOUNTER 2020-01-02 08:47 | Observation (INO) | payer MEDICARE, MEDICAID, SELFPAY ==
[2020-01-02] VITALS (9 sets, daily range): BP systolic 108–126; BP diastolic 58–71; PULSE 70–92; RESP 16–20; TEMP 36.6; O2SAT 96–98
--- NOTE | 2020-01-02 11:32 | DI.RAD.S_ITS ---
PROCEDURE: XR CHEST 1V INDICATIONS: generalized weakness TECHNIQUE: One view of the chest was acquired. COMPARISON: [facility], CR, XR CHEST 1V, 08/11/2019, 15:24. [facility], CR, XR CHEST 1V, 08/01/2019, 19:34. FINDINGS: Surgical changes and devices: None. Lungs and pleura: Lungs are abnormal with chronic interstitial prominence mild in overall severity, previously present on comparison plain films. No pleural effusions or pneumothorax. Mediastinum: Mediastinal contours appear normal. Heart size is normal. Bones and chest wall: No suspicious bony lesions. Overlying soft tissues appear unremarkable. IMPRESSION: Source of generalized weakness is not found. The chronic interstitial prominence discussed above is stable over time and may represent a manifestation of prior smoking history. Dictated by: Сергей Cody M.D. on 01/02/2020 at 11:57 Approved by: Сергей Cody M.D. on 01/02/2020 at 11:57
--- NOTE | 2020-01-02 11:35 | ED_ITS ---
HPI - Weakness <HUGO Davis - Last Filed: 01/03/20 00:35> General Chief complaint: Weakness Stated complaint: General Weakness Time Seen by Provider: 01/02/20 11:17 Source: patient and EMS Mode of arrival: EMS Limitations: physical limitation History of Present Illness HPI Narrative: This is 74-year-old gentleman, nonsmoker, who came in by EMS with generalized weakness. Patient is homeless and lives in his truck and reports he is barely able to get him self in and out of the car and has not been eating for last 36 hours. He is incontinent and was not be able to clean or change himself. He had to flag someone on the street to call the EMS for him this morning. He is well known to ED with frequent visits and he was here 2 days ago. However, he has been getting extremely weak and is unable to take care of himself. He is requesting for help and and is hoping to get into nursing facility. He states he was told he could get help at [facility] for homeless facility and turned down and had to find his way back to [place]. 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 Related Data Home Medications Medication Instructions Recorded Confirmed aspirin 325 mg tablet 325 mg PO DAILY 02/23/19 01/02/20 carbidopa-levodopa 1 tab PO TID 01/02/20 01/02/20 oxybutynin chloride 2.5 mg PO TID 01/02/20 01/02/20 Previous Rx's Medication Instructions Recorded Adult Diapers #30 each 08/10/18 DISABLED PARKING PLACARD #1 ea 09/27/18 ergocalciferol (vitamin D2) 1,250 50,000 unit PO QWEEK #4 cap 06/28/19 mcg (50,000 unit) capsule atorvastatin 40 mg tablet 40 mg PO BEDTIME #90 tab 11/07/19 tamsulosin 0.4 mg capsule 0.4 mg PO BEDTIME #90 cap 11/07/19 Allergies Allergy/AdvReac Type Severity Reaction Status Date / Time No Known Drug Allergies Allergy Verified 11/16/19 12:22 Review of Systems <HUGO Davis - Last Filed: 01/03/20 00:35> Review of Systems Narrative: General: Denies fever, chills, (+) fatigue, (+)malaise, sweats. HEENT: Denies sinus pain, ear pain, sore throat, difficulty swallowing, dizziness. Respiratory: Denies dyspnea, cough, wheezing, hemoptysis, sputum. Cardiovascular: Denies chest pain, palpitations, orthopnea, edema. Gastrointestinal: Denies nausea, vomiting, abdominal pain, diarrhea, constipation, melena. (+) incontinence for stool. : Denies dysuria, frequency, (+) incontinence, hematuria, urinary retention. Musculoskeletal: bilateral knee pain. Skin: Denies rash, skin lesions, or other. Neurologic: Denies (+) weakness, headache, numbness, change in speech, confusion, seizures. Psychiatric: No concerning psychosocial issues. 12-point review of systems is negative except for those stated above. Patient History <HUGO Davis - Last Filed: 01/03/20 00:35> Social History household members: none Smoking Status: Never smoker second hand exposure: No alcohol intake: former substance use type: does not use Smoking Status: Never smoker alcohol intake frequency: 0-2 drinks per day Substance Use Type: does not use Exam <HUGO Davis - Last Filed: 01/03/20 00:35> Narrative Exam Narrative: GEN: Alert, oriented x 3, weak appearing and in no acute distress. Strong smell of urine and disheveled look. Head: Normal cephalic, atraumatic. No scalp or temporal tenderness, palpable mass or rash. EYES: Pupils are equal, round, and reactive to light and accommodation. Extraocular muscles are intact bilaterally. There is no subconjunctival hemorrhage, exudate and sclera non-icteric. ENT: Bilateral auditory canals and tympanic membranes clear. Hearing grossly intact. Nose without bleeding, purulent discharge or deviation. Facial sinuses nontender to palpate. Mucous membrane dry, no mucosal lesion. Throat without erythema, tonsillar hypertrophy or exudate. Uvula in midline, airway patent. Neck: Trachea in midline. No JVD, non-tender without lymphadenopathy. No masses or thyroid megaly. Supple, non-tender and no meningeal signs. CARDIAC: Normal regular rate and rhythm without murmurs, gallops, or rubs. No chest wall tenderness. No peripheral edema, cyanosis or pallor. Capillary refill is less than 2 seconds. RESPIRATORY: Lungs are clear to auscultate bilaterally. No cough, wheezes, rales, or rhonchi. No stridor, respiratory distress, increase work of br eathing, or accessary muscle used. ABD: Abdomen soft, nontender and non-distended. No guarding or rebound tenderness to palpate. Bowel sounds are normal in all 4 quadrants. There is no palpable masses or organomegaly. EXT: Bilteral knee pain to palpate. Mild redness but no effusion noted. SKIN: Warm, dry, normal color for patient. No erythema, several macule lesions or rash over visible areas. BACK: Nontender without deformity or crepitance. No flank tenderness. NEUROLOGICAL: Alert and oriented to place, time and person. Sensation and motor function intact bilaterally. No facial droops, dysphasia. PSYCHIATRIC: Good judgement and reason, without hallucinations, abnormal affect or abnormal behaviors during the examination. Initial Vital Signs Initial Vital Signs: Vital Signs Temperature 97.8 F 01/02/20 09:00 Pulse Rate 77 01/02/20 09:00 Respiratory Rate 20 01/02/20 09:00 Blood Pressure 126/71 01/02/20 09:00 Pulse Oximetry 96 01/02/20 09:00 <Gopi Eason MD - Last Filed: 01/03/20 06:51> Initial Vital Signs Initial Vital Signs: Vital Signs Temperature 97.8 F 01/02/20 09:00 Pulse Rate 77 01/02/20 09:00 Respiratory Rate 20 01/02/20 09:00 Blood Pressure 126/71 01/02/20 09:00 Pulse Oximetry 96 01/02/20 09:00 Scores <HUGO Davis - Last Filed: 01/03/20 00:35> GCS [place] coma scale eye opening: Spontaneous [place] coma scale verbal response: Orientated [place] coma scale motor response: Obey commands Genaro coma scale total score: 15 Course <HUGO Davis - Last Filed: 01/03/20 00:35> Orders Ordered: Sodium Chloride (Normal Saline 0.9%) 1,000 mls @ 125 mls/hr IV CONT SKY Last Infusion: 01/02/20 21:48 Dose: 0 mls/hr Documented by: Admin: 01/02/20 12:47 Dose: 125 mls/hr Documented by: NATAN Trimethoprim/Sulfamethoxazole (Bactrim Ds) 1 tab PO BID SKY Last Admin: 01/03/20 04:40 Dose: 1 tab Documented by: AVA Discontinued Medications Trimethoprim/Sulfamethoxazole (Bactrim Ds) 1 tab PO NOW ONE Stop: 01/02/20 16:40 Last Admin: 01/02/20 17:40 Dose: 1 tab Documented by: SHINE Vital Signs Vital signs: Vital Signs - 8 hr 01/02/20 16:51 01/02/20 17:30 01/02/20 20:46 Pulse Rate 81 79 Respiratory Rate 16 18 Blood Pressure [Left Arm] 123/65 120/66 110/64 Pulse Oximetry 97 98 <Gopi Eason MD - Last Filed: 01/03/20 06:51> Orders Ordered: Sodium Chloride (Normal Saline 0.9%) 1,000 mls @ 125 mls/hr IV CONT SKY Last Infusion: 01/02/20 21:48 Dose: 0 mls/hr Documented by: Admin: 01/02/20 12:47 Dose: 125 mls/hr Documented by: NATAN Trimethoprim/Sulfamethoxazole (Bactrim Ds) 1 tab PO BID SKY Last Admin: 01/03/20 04:40 Dose: 1 tab Documented by: AVA Discontinued Medications Trimethoprim/Sulfamethoxazole (Bactrim Ds) 1 tab PO NOW ONE Stop: 01/02/20 16:40 Last Admin: 01/02/20 17:40 Dose: 1 tab Documented by: SHINE Vital Signs Vital signs: Vital Signs - 8 hr 01/02/20 16:51 01/02/20 17:30 01/02/20 20:46 Pulse Rate 81 79 Respiratory Rate 16 18 Blood Pressure [Left Arm] 123/65 120/66 110/64 Pulse Oximetry 97 98 MDM - Weakness <HUGO Davis - Last Filed: 01/03/20 00:35> Differential Diagnosis Differential diagnosis: Likely other (Generalized weakness, UTI, homelessmess) Medical Records Attestation: I reviewed the patient's medical records. Lab Data Attestation: I reviewed the patient's lab results. Result diagrams: 01/02/20 11:53 01/02/20 11:53 Labs: Lab Results 01/02/20 01/02/20 01/02/20 Range/Units 11:53 11:53 15:05 WBC 12.8 H (4.5-11.0) X10^3/uL RBC 4.72 (4.5-5.9) X10^6/uL Hgb 14.5 (13.5-17.5) g/dL Hct 42.7 (41-53) % MCV 90.4 (80-100) fL MCH 30.8 (26-34) PG MCHC 34.1 (30-36) % RDW 13.9 (11.6-14.8) % Plt Count 278 (150-400) X10^3/uL Neut % (Auto) 81.6 H (50-75) % Lymph % (Auto) 10.7 L (25-40) % [place] % (Auto) 6.7 (3-14) % Eos % (Auto) 0.5 L (2-4) % Baso % (Auto) 0.5 (0-2) % Neut # (Auto) 33198 H (4803-4988) /uL Lymph # (Auto) 1400 (0852-3562) /uL [place] # (Auto) 800 (0-900) /uL Eos # (Auto) 100 (0-450) /uL Baso # (Auto) 100 (0-100) /uL Sodium 141 (137-145) mmol/L Potassium 3.6 (3.4-5.1) mmol/L Chloride 110 H (98-107) mmol/L Carbon Dioxide 21 L (22-32) mmol/L BUN 22 H (9-20) mg/dL Creatinine 0.70 (0.66-1.25) mg/dL Estimated GFR > 60.0 (>60) mL/min BUN/Creatinine Ratio 31.4 H (6-22) Glucose 96 (80-110) mg/dL Calcium 8.8 (8.4-10.2) mg/dL Total Bilirubin 1.0 (0.2-1.3) mg/dL AST 20 (17-59) IU/L ALT 18 (<50) IU/L Alkaline Phosphatase 95 (38-126) U/L Total Protein 7.2 (6.3-8.2) g/dL Albumin 3.8 (3.5-5.0) g/dL Globulin 3.4 (1.7-4.1) g/dL Albumin/Globulin Ratio 1.1 (1.0-2.8) Urine Color Yellow Urine Appearance Cloudy Urine pH 5.5 (4.5-8.0) Ur Specific [place] 1.025 (1.000-1.035) Urine Protein 1+ H (Negative) Urine Glucose (UA) Negative (Negative) g/dL Urine Ketones Trace H (NEGATIVE) Urine Occult Blood 3+ H (Negative) Urine Nitrate Negative (Negative) Urine Bilirubin Negative (NEGATIVE) Urine Urobilinogen 0.2 (0.2) E.U./dL Ur Leukocyte Esterase 2+ H (NEGATIVE) Urine RBC 30-100/hpf H (0-5/HPF) Urine WBC >100/hpf H (0-5/HPF) Urine Bacteria Many (>30) H (None) Ur Culture Indicated? Specimen cultured MDM Narrative Medical decision making narrative: This is 74-year-old homeless male who presents to ED after he was discharged to his car 2 days ago with generalized weakness and he returned today with same chief complaint. He is well-known to ED with frequent visits with us similar chief complain in the past with chronic UTI and urinary incontinence. Patient reports his weakness has been worse and he is difficulty getting himself in and out of the car and taking care of himself. When patient arrived in ED he was soiled incontinence from urine and stools and had not eaten for 36 hours according to the patient. Patient is requesting assistance for placement into long-term care and social security specialist has been consulted for this. Physical therapy evaluation was done in ED and suggested that patient does require 2 person assist for short distance walk with gait belt and front wheeled walker and with poor balance and gait ability with increased bilateral lower extremity tightness and rigidity. Patient has mildly elevated leukocytosis of 12.8 and neutrophil of 81.6%. Stable H&H today. Chemistry shows some dehydration and patient has been getting gentle hydration with normal saline while in ED. patient was provided with nutritional support with sandwiches and drinks while in ED. patient was assisted with Kayy care several times while in ED. vital signs been stable with afebrile. There appears to be patient has another UTI with 2+ leukocyte esterase with negative nitrate and greater than 100/hpf of urine WBC and many Urine bacteria. Urine culture is pending. Patient was treated with Bactrim p.o.. link trainer maintenance worker was consulted and they are trying to find placement at other hospital for long-term care (swing bed). <Gopi Eason MD - Last Filed: 01/03/20 06:51> Lab Data Labs: Lab Results 01/02/20 01/02/20 01/02/20 Range/Units 11:53 11:53 15:05 WBC 12.8 H (4.5-11.0) X10^3/uL RBC 4.72 (4.5-5.9) X10^6/uL Hgb 14.5 (13.5-17.5) g/dL Hct 42.7 (41-53) % MCV 90.4 (80-100) fL MCH 30.8 (26-34) PG MCHC 34.1 (30-36) % RDW 13.9 (11.6-14.8) % Plt Count 278 (150-400) X10^3/uL Neut % (Auto) 81.6 H (50-75) % Lymph % (Auto) 10.7 L (25-40) % [place] % (Auto) 6.7 (3-14) % Eos % (Auto) 0.5 L (2-4) % Baso % (Auto) 0.5 (0-2) % Neut # (Auto) 64129 H (1124-8790) /uL Lymph # (Auto) 1400 (4185-8259) /uL [place] # (Auto) 800 (0-900) /uL Eos # (Auto) 100 (0-450) /uL Baso # (Auto) 100 (0-100) /uL Sodium 141 (137-145) mmol/L Potassium 3.6 (3.4-5.1) mmol/L Chloride 110 H (98-107) mmol/L Carbon Dioxide 21 L (22-32) mmol/L BUN 22 H (9-20) mg/dL Creatinine 0.70 (0.66-1.25) mg/dL Estimated GFR > 60.0 (>60) mL/min BUN/Creatinine Ratio 31.4 H (6-22) Glucose 96 (80-110) mg/dL Calcium 8.8 (8.4-10.2) mg/dL Total Bilirubin 1.0 (0.2-1.3) mg/dL AST 20 (17-59) IU/L ALT 18 (<50) IU/L Alkaline Phosphatase 95 (38-126) U/L Total Protein 7.2 (6.3-8.2) g/dL Albumin 3.8 (3.5-5.0) g/dL Globulin 3.4 (1.7-4.1) g/dL Albumin/Globulin Ratio 1.1 (1.0-2.8) Urine Color Yellow Urine Appearance Cloudy Urine pH 5.5 (4.5-8.0) Ur Specific [place] 1.025 (1.000-1.035) Urine Protein 1+ H (Negative) Urine Glucose (UA) Negative (Negative) g/dL Urine Ketones Trace H (NEGATIVE) Urine Occult Blood 3+ H (Negative) Urine Nitrate Negative (Negative) Urine Bilirubin Negative (NEGATIVE) Urine Urobilinogen 0.2 (0.2) E.U./dL Ur Leukocyte Esterase 2+ H (NEGATIVE) Urine RBC 30-100/hpf H (0-5/HPF) Urine WBC >100/hpf H (0-5/HPF) Urine Bacteria Many (>30) H (None) Ur Culture Indicated? Specimen cultured Discharge Plan Departure Patient Disposition: Xfer [facility] Clinical Impression: Generalized weakness, Homelessness, Chronic UTI Prescriptions: No Action (DME) Adult Diapers Qty: 30 RF: 12 aspirin 325 mg tablet 325 mg PO DAILY RF: 0 (DME) DISABLED PARKING PLACARD Qty: 1 RF: 0 ergocalciferol (vitamin D2) 50,000 unit capsule 50,000 unit PO QWEEK Qty: 4 RF: 12 atorvastatin 40 mg tablet 40 mg PO BEDTIME Qty: 90 RF: 3 tamsulosin [Flomax] 0.4 mg capsule 0.4 mg PO BEDTIME Qty: 90 RF: 1 carbidopa-levodopa 25-100 mg tablet 1 tab PO TID RF: 0 oxybutynin chloride 5 mg tablet 2.5 mg PO TID RF: 0 Referrals: Katia Frances PA-C [Primary Care Provider] - ED Sign-out <[facility], NPS - Last Filed: 01/03/20 00:35> Sign Out Provider Sign Out Attestation: Discussed with Dr. Eason in regards the patient history, frequent ED visit, in needs of social work assistance and placement at non-acute hospitalization for rehab and fdc care placement and UTI and its treatment. Dr. Eason kindly accepted patient's care and plan for transfer to other facility in the morning or later tomorrow with the behavioral health case manager's assistance.
[2020-01-02 11:58] LABS: Add Manual Diff / Slide Review NO; Basophils Absolute Auto 100 /uL (0-100); Basophils Percent Auto 0.5 % (0-2); Eosinophils Absolute Auto 100 /uL (0-450); Eosinophils Percent Auto 0.5 % (2-4); Hematocrit 42.7 % (41-53); Hemoglobin 14.5 g/dL (13.5-17.5); Lymphocytes Absolute Auto 1400 /uL (1100-4500); Lymphocytes Percent Auto 10.7 % (25-40); Mean Corpuscular HGB Conc 34.1 % (30-36); Mean Corpuscular Hemoglobin 30.8 PG (26-34); Mean Corpuscular Volume 90.4 fL (80-100); Monocytes Absolute Auto 800 /uL (0-900); Monocytes Percent Auto 6.7 % (3-14); Neutrophils Absolute Auto 10400 /uL (1500-7000); Neutrophils Percent Auto 81.6 % (50-75); Platelet Count 278 X10^3/uL (150-400); Red Blood Cell Count 4.72 X10^6/uL (4.5-5.9); Red Cell Distribution Width 13.9 % (11.6-14.8); White Blood Cell Count 12.8 X10^3/uL (4.5-11.0)
[2020-01-02 12:10] LABS: Alanine Aminotransferase 18 IU/L (<50); Albumin 3.8 g/dL (3.5-5.0); Albumin Globulin Ratio 1.1 (1.0-2.8); Alkaline Phosphatase 95 U/L (38-126); Aspartate Aminotransferase 20 IU/L (17-59); BUN Creatinine Ratio 31.4 (6-22); Blood Urea Nitrogen 22 mg/dL (9-20); Calcium 8.8 mg/dL (8.4-10.2); Carbon Dioxide 21 mmol/L (22-32); Chloride 110 mmol/L (98-107); Estimated Glomerular Filt Rate > 60.0 mL/min (>60); Globulin 3.4 g/dL (1.7-4.1); Glucose 96 mg/dL (80-110); HEMOLYSIS < 15 (0-50); Potassium 3.6 mmol/L (3.4-5.1); Sodium 141 mmol/L (137-145); Total Protein 7.2 g/dL (6.3-8.2)
[2020-01-02] MEDS: SODIUM CHLORIDE 0.9% 1,000 ML 125 ML IV (12:47)
--- NOTE | 2020-01-02 14:00 | PT.IIE ---
Surgical History (Last Reviewed 12/31/19 @ 13:15 by HUGO Davis) History of cataract removal with insertion of prosthetic lens (02/2016) Hx of cystoscopy (Acute 04/2017) Hx of transurethral resection of prostate (Resolved 04/2017) Status post colectomy (2010) Status post hernia repair (05/2013) Medical History (Last Reviewed 12/31/19 @ 13:15 by HUGO Davis) Arthritis (Chronic) BPH (benign prostatic hyperplasia) (Chronic) Colon polyps (Resolved) Depression (Chronic) Hernia (Resolved) History of alcohol abuse (Resolved 1980) Hyperlipemia (Chronic) Hypertension (Chronic) Osteopenia (Chronic) Osteoporosis (Chronic) Shoulder pain (Resolved) Urinary retention (Resolved ~04/2017) Physical Therapy Inpatient Evaluation/Re-Eval M1 PT/OT-IP Prior Functional Status Start: 01/02/20 14:46 Freq: Status: Active Protocol: Document 01/02/20 14:50 AB (Rec: 01/02/20 15:08 [id number]) Medical Review Prior Functional Status Medical History Reviewed Yes Communication able to make needs known Mobility and Gait pt stated that he has not been able to do much to take care of himself these passed few days but prior to that was able to ambulate using either a FWW or a quad cane Social History Household Members none Number of Stairs To Enter/Railing? pt is homeless and sleeps on his car M2 PT-IP Current Condition Start: 01/02/20 14:46 Freq: Status: Active Protocol: Document 01/02/20 14:50 AB (Rec: 01/02/20 15:08 AB [id number]) Physical Therapy Current Condition Current Condition Evaluation Date 01/02/20 Treatment Diagnosis weakness; difficulty in walking Onset Date 01/02/2020 M3 PT-IP Subjective Start: 01/02/20 14:46 Freq: Status: Active Protocol: Document 01/02/20 14:50 AB (Rec: 01/02/20 15:08 AB [id number]) Subjective Physical Therapy Visit Type Type Initial Evaluation Visit Start Time 14:00 Visit Stop Time 14:35 Total Visit Minutes 35 Number of ELECTRICIAN YARD Visits 0 Physical Therapy Visit Comments Patient Comments pt agreeable to do PT M4 PT-IP Mobility and Gait Start: 01/02/20 14:46 Freq: Status: Active Protocol: Document 01/02/20 14:50 AB (Rec: 01/02/20 15:08 AB [id number]) PT-Bed Mobility Assessment Supine to Sit Supine to Sit Moderate Assistance,Maximum Assistance,1 Person Assistance PT-Transfer Assessment Sit to and From Stand Sit to and from Stand Moderate Assistance,1 Person Assistance,Use of Upper Extremities Equipment Transfer Assistive Device Gait Belt,Front Wheeled Walker Orthotic/Prosthetic Devices or Brace: No Transfers Transfer Destination Bedside Commode Transfer Technique ambulated using FWW Transfer Ability Level of Assist Maximum Assistance,1 Person Assistance,Use of Upper Extremities Comments Mobility Comments pt compled supine to sit max A and max cues. required initial min A for sitting balance on EOB but after positioning only required CGA. completed sit to stand mod A and cues. required mod to max A to maintain standing balance using FWW for support. pt was able to ambulate to the bedside commode ~ 3 ft max A and max cues. pt with increase posterior LOB and overall trunk rigidity during mobility requiring assist for safety and weight shifting. required max A to maintain standing balance using FWW while assisted with brief management. required max A for controlled descent to the bedside commode. pt wants to sit on the commode for awhile . call buttong positioned next to pt. informed nurse and aware that pt will call for assistance when ready. Gait Assessment Gait Gait Assistance Required: Maximum Assistance,1 Person Assist Distance (Feet) 3 Able to Maintain Weight Bearing Status Yes During Gait Assistive Devices Assistive Device Gait Belt,Front Wheeled Walker Orthotic/Prosthetic Devices or Brace: No Gait Deviations General Gait Pattern Antalgic,Ataxic,Decreased Stride Length,Decreased Feet Clearance,Festinating,Narrow Based Gait,Step-to Gait Factors Limiting Gait Function Factors Limiting Gait Function Abnormal Tonal Influences, Decreased Activity Tolerance, Decreased Strength,Limited Range of Motion,Poor Balance, Poor Safety Awareness Comments Gait Comments pls refer to mobility section for details PT-Balance Assessment Sitting Balance and Reactions Static Sitting Balance Ability Good Dynamic Sitting Balance Ability Fair Standing Balance and Reactions Static Standing Balance Ability Poor Dynamic Standing Balance Ability Poor Device Used FWW M5 PT-IP Objective Assessments Start: 01/02/20 14:46 Freq: Status: Active Protocol: Document 01/02/20 14:50 AB (Rec: 01/02/20 15:08 AB [id number]) Orientation Orientation/Cognition Level of Alertness Alert Orientation Name,Place,Situation Safety Awareness Decreased Safety Awareness Gross Range of Motion Lower Extremity ROM Assessment Bilaterally Impaired Impairments increase bilateral LE tightness/rigidity Strength Lower Extremity Strength Assessment Bilaterally Impaired Hip 3+/5 Knee 3+/5 Ankle 3/5 Muscle Tone Muscle Tone WNL No Muscle Tone Location Bilateral Lower Extremity Type of Tone Hypertonicity,Rigidity Severity of Tone Mild M6 PT-IP Treatment Start: 01/02/20 14:46 Freq: Status: Active Protocol: Document 01/02/20 14:50 AB (Rec: 01/02/20 15:08 AB [id number]) Physical Therapy Treatment Education Education Provided Safety M7 PT-IP Assessment and Plan Start: 01/02/20 14:46 Freq: Status: Active Protocol: Document 01/02/20 14:50 AB (Rec: 01/02/20 15:08 AB [id number]) PT Summary Assessment and Plan Potential Rehabilitation Potential Fair Status of Condition at Evaluation Evolving Summary Impairments Pain,ROM,Strength,Balance, Coordination,Sensation,Tone, Cognition,Bed Mobility, Transfers,Gait,Activity Tolerance Assessment Summary pt requires max A with mobility with posterior trunk LOB during standing and ambulation using FWW. pt is homeless and does not have anybody to assist him. pt will need SNF rehab to improve strength and mobility and may require LTC placement. Goals Bed Mobility Goal Standby Assistance Transfer Goal Standby Assistance,Front Wheeled Walker Gait Goal Standby Assistance,Front Wheel Walker Gait Distance 200 Days to Meet Goals 10 Frequency of Treatment Frequency Of Treatment Once a Day Treatment Plan Physical Therapy Treatment Plan Bed Mobility Training,Transfer Training,Gait Training, Therapeutic Exercise,Balance Retraining,Discharge Planning, Hot or Cold Pack,Neuromuscular Re-ed,Coordination Retraining ,Manual Therapy Other Recommendations and Next Treatment ambulation, standing balance/ Focus tolerance Recommendations To Nursing Amount of Assist Needed 2 Person Assist Discharge Recommendations PT Discharge Recommendations SNF Rehab Transportation Needs at Discharge Wheelchair/Cabulance
[2020-01-02 15:24] LABS: Appearance Urine UA CLOUDY; Bilirubin Urine UA NEGATIVE (NEGATIVE); Color Urine UA YELLOW; Glucose Urine UA NEGATIVE (Negative); Ketones Urine UA TRACE (NEGATIVE); Leukocyte Esterase Urine UA 2+ (NEGATIVE); Nitrite Urine UA NEGATIVE (Negative); Occult Blood Urine UA 3+ (Negative); Protein Urine UA 1+ (Negative); Specific Gravity Urine UA 1.025 (1.000-1.035); Urobilinogen Urine UA 0.2 E.U./dL (0.2); pH Urine UA 5.5 (4.5-8.0)
[2020-01-02 15:49] LABS: Bacteria Urine Many (>30); Culture Indicated Urine Specimen Cultured; RBC Urine 30-100/HPF (0-5/HPF); WBC Urine >100/HPF (0-5/HPF)
--- NOTE | 2020-01-02 16:10 | CM.SWNOTE ---
Addendum entered by Stacie Carrion R.N. 01/02/20 18:47: Patients home and community services case management coordinator Yanick Manley called and stated that he is still working on placement options for the patient and would like KAM Foster to call him tomorrow at [phone] so he can work to get him placement.Mr. Manley will be in his office tomorrow starting at 7:30am. CM/RN will let GASKET INSPECTOR know. Waiting call back form swing bed at [facility] tomorrow morning after they review clinicals that were faxed earlier. Stacie Carrion RN Original Note: ZEYNEP/RN note: EMR Reviewed: Patient is a 74 yr old male who came into the ED by EMS complaining of generalized weakness. Patient has been to the ED multiple times and is progressively getting worse with ADL's and weakness. CM/RN spoke with [facility] [phone] ext: [phone] through local homeless nursing home who is helping patient get into housing and possible into a hotel for a few nights. patient is also working with Home and community services (Darin Isaac) [phone] and Yanick Manley at ([phone]) to work on getting [facility] nursing Rehab and then m[facility] care placement after that. CM/RN called and left voice messages with both Yanick Manley and Darin Isaac to let them know the patient is here in the ED. CM/RN also called [facility] to have them evaluate patient for possible Swing bed placement to help with physical Rehab while patient is working with home and community services to get mcc placement. CM/RN Faxed clinicals for them to review for possible admission. as well as faxed PT notes to Candido to help work on reducing patient sex offenders level from a level 2 to level 1 since patient increasing generalized weakness, and it has been over 20 yr since sex offender conviction. Cm/RN heard back from [facility] and they are not able to cover a hotel cost for a few nights do to limited resources . CM/RN will continue to work on D/C options to assist patient. Stacie Carrion RN
[2020-01-02] MEDS: TRIMETH/SULFA 160/800 (DS) TABLET 1 TAB PO (17:40)
--- NOTE | 2020-01-03 00:04 | PC.NURSE ---
up to bsc with 1pa
[2020-01-03] MEDS: TRIMETH/SULFA 160/800 (DS) TABLET 1 TAB PO ×3 (04:40→20:55)
--- NOTE | 2020-01-03 08:42 | PC.NURSE ---
pt given meal tray
[2020-01-03 09:22] VITALS: BP 106/70; PULSE 74; RESP 16; O2SAT 96
[2020-01-03 11:35] VITALS: BP 119/58; PULSE 64; RESP 17; O2SAT 94
[2020-01-03 15:32] VITALS: BP 124/61; PULSE 67; RESP 17; O2SAT 97
[2020-01-03 16:00] VITALS: BP 127/80; PULSE 76; RESP 18; O2SAT 95
--- NOTE | 2020-01-03 16:41 | CM.DPNOTE ---
DCP/Note continued: Received call this afternoon from Marly at [facility] re: swing bed availability. Marly reports that they have reviewed this patient and are unable to accept at [facility]. Per Marly, [facility] attempted to place him there a few weeks ago? Placed call this AM to [place] [facility] CM/Yanick Manley ph# [phone] explained that patient remains in the Emergency Department awaiting secure placement by the state. Yanick reports that he has a list of approximately 10-12 places that he will attempt to call. Yanick has patient's state assessment which is needed to negotiate with potential placements. Stressed to Yanick the urgency of getting patient safely placed. Yanick reports he will do the best he can but does not guarantee anything today. CM/Prepress Stripper Dea updated on the above. ELECTROLYSIS ENGINEER requested that Yanick fax list of those facilities he is attempting placement at. As of 4:30pm no fax received. Yanick notified this AM that [facility] staff would assist with placement however we can but untimely he needs to negotiate rate and obtain long-term placement. Otherwise, patient runs risk of returning to previous homeless/car environment. Yanick aware that patient does not meet inpatient status to be admitted. Spoke with Prasad at [facility] ph# [phone] ext# [phone] she too is willing to assist with placement any way they can but her resources for patient are limited due to his acuity issues. Patient might be eligible for motel voucher but he would need to be primarily I. She is available by phone and eager to assist if needed. P: Pending. Either patient obtains secure penitentiary plan through the state vs. motel voucher vs. return to car/homelessness. KAM Cote
[2020-01-03 18:30] VITALS: BP 115/84; PULSE 86; RESP 15; O2SAT 94
--- NOTE | 2020-01-03 18:31 | PC.NURSE ---
pt is barely able to stand. very unsteady on his feet with two person assist. provider, Anthony sinclair
[2020-01-03 18:49] LABS: Adenovirus F 40/41 Not Detected (Not Detect); Astrovirus Not Detected (Not Detect); Campylobacter Not Detected (Not Detect); Clostridium difficile toxin AB Not Detected (Not Detect); Cryptosporidium Not Detected (Not Detect); Cyclospora cayetanensis Not Detected (Not Detect); Entamoeba histolytica Not Detected (Not Detect); Enteroaggregative E.coli Not Detected (Not Detect); Enteropathogenic E.coli Not Detected (Not Detect); Enterotoxigenic E.coli It/st Not Detected (Not Detect); Giardia lamblia Not Detected (Not Detect); Norovirus GI/GII Not Detected (Not Detect); Plesiomonsa shigelloides Not Detected (Not Detect); Rotavirus A Not Detected (Not Detect); Salmonella Not Detected (Not Detect); Sapovirus Not Detected (Not Detect); Shiga-like toxin-prod E.coli Not Detected (Not Detect); Shigella/Enteroinvasive E.coli Not Detected (Not Detect); Vibrio Not Detected (Not Detect); Vibrio cholerae Not Detected (Not Detect); Yersinia enterocolitica Not Detected (Not Detect)
[2020-01-03 19:32] LABS: Add Manual Diff / Slide Review NO; Basophils Absolute Auto 100 /uL (0-100); Basophils Percent Auto 0.6 % (0-2); Eosinophils Absolute Auto 100 /uL (0-450); Eosinophils Percent Auto 0.6 % (2-4); Hematocrit 40.3 % (41-53); Hemoglobin 13.5 g/dL (13.5-17.5); Lymphocytes Absolute Auto 1600 /uL (1100-4500); Lymphocytes Percent Auto 14.8 % (25-40); Mean Corpuscular HGB Conc 33.6 % (30-36); Mean Corpuscular Hemoglobin 30.7 PG (26-34); Mean Corpuscular Volume 91.4 fL (80-100); Monocytes Absolute Auto 900 /uL (0-900); Monocytes Percent Auto 8.4 % (3-14); Neutrophils Absolute Auto 8200 /uL (1500-7000); Neutrophils Percent Auto 75.6 % (50-75); Platelet Count 247 X10^3/uL (150-400); Red Blood Cell Count 4.41 X10^6/uL (4.5-5.9); Red Cell Distribution Width 14.1 % (11.6-14.8); White Blood Cell Count 10.8 X10^3/uL (4.5-11.0)
--- NOTE | 2020-01-03 19:45 | PC.NURSE ---
DAVID Watts in room to assist pt to standing with hospitalist Darren in room, PT unable to stand independently or with assistance, very unsteady with assistance and unsuccessful attempt to stand pt safely out of bed.
[2020-01-03 19:47] LABS: Blood Urea Nitrogen 19 mg/dL (9-20); Calcium 8.5 mg/dL (8.4-10.2); Carbon Dioxide 19 mmol/L (22-32); Chloride 109 mmol/L (98-107); Estimated Glomerular Filt Rate > 60.0 mL/min (>60); Glucose 119 mg/dL (80-110); HEMOLYSIS < 15 (0-50); Potassium 3.8 mmol/L (3.4-5.1); Sodium 137 mmol/L (137-145)
--- NOTE | 2020-01-03 21:11 | ED_ITS ---
HPI - Weakness General Chief complaint: Weakness Stated complaint: General Weakness Time Seen by Provider: 01/02/20 11:17 Source: patient and EMS Mode of arrival: EMS Limitations: physical limitation Related Data Home Medications Medication Instructions Recorded Confirmed aspirin 325 mg tablet 325 mg PO DAILY 02/23/19 01/02/20 carbidopa-levodopa 1 tab PO TID 01/02/20 01/02/20 oxybutynin chloride 2.5 mg PO TID 01/02/20 01/02/20 Previous Rx's Medication Instructions Recorded Adult Diapers #30 each 08/10/18 DISABLED PARKING PLACARD #1 ea 09/27/18 ergocalciferol (vitamin D2) 1,250 50,000 unit PO QWEEK #4 cap 06/28/19 mcg (50,000 unit) capsule atorvastatin 40 mg tablet 40 mg PO BEDTIME #90 tab 11/07/19 tamsulosin 0.4 mg capsule 0.4 mg PO BEDTIME #90 cap 11/07/19 Allergies Allergy/AdvReac Type Severity Reaction Status Date / Time No Known Drug Allergies Allergy Verified 11/16/19 12:22 Patient History Social History household members: none Smoking Status: Never smoker second hand exposure: No alcohol intake: former substance use type: does not use Smoking Status: Never smoker alcohol intake frequency: 0-2 drinks per day Substance Use Type: does not use Exam Initial Vital Signs Initial Vital Signs: Vital Signs Temperature 97.8 F 01/02/20 09:00 Pulse Rate 77 01/02/20 09:00 Respiratory Rate 20 01/02/20 09:00 Blood Pressure 126/71 01/02/20 09:00 Pulse Oximetry 96 01/02/20 09:00 Course Orders Ordered: ED Orders 01/03/20 16:30 GI Panel (Film Array) Stat 01/03/20 19:21 Basic Metabolic Panel Stat Complete Blood Count AUTO DIFF Stat Sodium Chloride (Normal Saline 0.9%) 1,000 mls @ 125 mls/hr IV CONT SKY Last Infusion: 01/02/20 21:48 Dose: 0 mls/hr Documented by: Admin: 01/02/20 12:47 Dose: 125 mls/hr Documented by: NATAN Trimethoprim/Sulfamethoxazole (Bactrim Ds) 1 tab PO BID SKY Last Admin: 01/03/20 20:55 Dose: 1 tab Documented by: Admin: 01/03/20 09:35 Dose: 1 tab Documented by: Admin: 01/03/20 04:40 Dose: 1 tab Documented by: AVA Discontinued Medications Trimethoprim/Sulfamethoxazole (Bactrim Ds) 1 tab PO NOW ONE Stop: 01/02/20 16:40 Last Admin: 01/02/20 17:40 Dose: 1 tab Documented by: SHINE Trimethoprim/Sulfamethoxazole (Bactrim Ds) 1 tab PO NOW ONE Stop: 01/03/20 16:31 Last Admin: 01/03/20 16:33 Dose: Not Given Documented by: ONELIA Vital Signs Vital signs: Vital Signs - 8 hr 01/03/20 15:32 01/03/20 16:00 01/03/20 18:30 Pulse Rate 67 76 86 Respiratory Rate 17 18 15 Blood Pressure [Left Arm] 124/61 127/80 115/84 Pulse Oximetry 97 95 94 MDM - Weakness Lab Data Result diagrams: 01/03/20 19:21 01/03/20 19:21 Labs: Lab Results 01/02/20 01/02/20 01/02/20 Range/Units 11:53 11:53 15:05 WBC 12.8 H (4.5-11.0) X10^3/uL RBC 4.72 (4.5-5.9) X10^6/uL Hgb 14.5 (13.5-17.5) g/dL Hct 42.7 (41-53) % MCV 90.4 (80-100) fL MCH 30.8 (26-34) PG MCHC 34.1 (30-36) % RDW 13.9 (11.6-14.8) % Plt Count 278 (150-400) X10^3/uL Neut % (Auto) 81.6 H (50-75) % Lymph % (Auto) 10.7 L (25-40) % [place] % (Auto) 6.7 (3-14) % Eos % (Auto) 0.5 L (2-4) % Baso % (Auto) 0.5 (0-2) % Neut # (Auto) 90026 H (7450-5951) /uL Lymph # (Auto) 1400 (2770-6678) /uL [place] # (Auto) 800 (0-900) /uL Eos # (Auto) 100 (0-450) /uL Baso # (Auto) 100 (0-100) /uL Sodium 141 (137-145) mmol/L Potassium 3.6 (3.4-5.1) mmol/L Chloride 110 H (98-107) mmol/L Carbon Dioxide 21 L (22-32) mmol/L BUN 22 H (9-20) mg/dL Creatinine 0.70 (0.66-1.25) mg/dL Estimated GFR > 60.0 (>60) mL/min BUN/Creatinine Ratio 31.4 H (6-22) Glucose 96 (80-110) mg/dL Calcium 8.8 (8.4-10.2) mg/dL Total Bilirubin 1.0 (0.2-1.3) mg/dL AST 20 (17-59) IU/L ALT 18 (<50) IU/L Alkaline Phosphatase 95 (38-126) U/L Total Protein 7.2 (6.3-8.2) g/dL Albumin 3.8 (3.5-5.0) g/dL Globulin 3.4 (1.7-4.1) g/dL Albumin/Globulin Ratio 1.1 (1.0-2.8) Urine Color Yellow Urine Appearance Cloudy Urine pH 5.5 (4.5-8.0) Ur Specific [place] 1.025 (1.000-1.035) Urine Protein 1+ H (Negative) Urine Glucose (UA) Negative (Negative) g/dL Urine Ketones Trace H (NEGATIVE) Urine Occult Blood 3+ H (Negative) Urine Nitrate Negative (Negative) Urine Bilirubin Negative (NEGATIVE) Urine Urobilinogen 0.2 (0.2) E.U./dL Ur Leukocyte Esterase 2+ H (NEGATIVE) Urine RBC 30-100/hpf H (0-5/HPF) Urine WBC >100/hpf H (0-5/HPF) Urine Bacteria Many (>30) H (None) Ur Culture Indicated? Specimen cultured Stl C. cayetanensis PCR (Not Detect) Stool Rotavirus (PCR) (Not Detect) Stool Adenovirus (PCR) (Not Detect) Stool Astrovirus (PCR) (Not Detect) Stool Cryptosporidium PCR (Not Detect) Stl E.coli Shiga Tox PCR (Not Detect) St Sh/Enteroin Ecoli PCR (Not Detect) Stool E coli O157 PCR Stl Enterotoxigenic E PCR (Not Detect) Stool EPEC (PCR) (Not Detect) Stl E. histolytica PCR (Not Detect) Stool Giardia Lamblia PCR (Not Detect) Stool Sapovirus (PCR) (Not Detect) Stl P. shigelloides PCR (Not Detect) St Y.enterocolitica PCR (Not Detect) Stool Vibrio (PCR) (Not Detect) Stl Vibrio cholerae PCR (Not Detect) Stl Enteroaggr Ecoli PCR (Not Detect) Stl Norovirus GI/GII PCR (Not Detect) Campylobacter (PCR) (Not Detect) C. difficile Tox (PCR) (Not Detect) Salmonella (PCR) (Not Detect) 01/03/20 01/03/20 01/03/20 Range/Units 16:30 19:21 19:21 WBC 10.8 (4.5-11.0) X10^3/uL RBC 4.41 L (4.5-5.9) X10^6/uL Hgb 13.5 (13.5-17.5) g/dL Hct 40.3 L (41-53) % MCV 91.4 (80-100) fL MCH 30.7 (26-34) PG MCHC 33.6 (30-36) % RDW 14.1 (11.6-14.8) % Plt Count 247 (150-400) X10^3/uL Neut % (Auto) 75.6 H (50-75) % Lymph % (Auto) 14.8 L (25-40) % [place] % (Auto) 8.4 (3-14) % Eos % (Auto) 0.6 L (2-4) % Baso % (Auto) 0.6 (0-2) % Neut # (Auto) 8200 H (2762-4164) /uL Lymph # (Auto) 1600 (5076-5767) /uL [place] # (Auto) 900 (0-900) /uL Eos # (Auto) 100 (0-450) /uL Baso # (Auto) 100 (0-100) /uL Sodium 137 (137-145) mmol/L Potassium 3.8 (3.4-5.1) mmol/L Chloride 109 H (98-107) mmol/L Carbon Dioxide 19 L (22-32) mmol/L BUN 19 (9-20) mg/dL Creatinine 1.00 (0.66-1.25) mg/dL Estimated GFR > 60.0 (>60) mL/min BUN/Creatinine Ratio 19.0 (6-22) Glucose 119 H (80-110) mg/dL Calcium 8.5 (8.4-10.2) mg/dL Total Bilirubin (0.2-1.3) mg/dL AST (17-59) IU/L ALT (<50) IU/L Alkaline Phosphatase (38-126) U/L Total Protein (6.3-8.2) g/dL Albumin (3.5-5.0) g/dL Globulin (1.7-4.1) g/dL Albumin/Globulin Ratio (1.0-2.8) Urine Color Urine Appearance Urine pH (4.5-8.0) Ur Specific [place] (1.000-1.035) Urine Protein (Negative) Urine Glucose (UA) (Negative) g/dL Urine Ketones (NEGATIVE) Urine Occult Blood (Negative) Urine Nitrate (Negative) Urine Bilirubin (NEGATIVE) Urine Urobilinogen (0.2) E.U./dL Ur Leukocyte Esterase (NEGATIVE) Urine RBC (0-5/HPF) Urine WBC (0-5/HPF) Urine Bacteria (None) Ur Culture Indicated? Stl C. cayetanensis PCR Not detected (Not Detect) Stool Rotavirus (PCR) Not detected (Not Detect) Stool Adenovirus (PCR) Not detected (Not Detect) Stool Astrovirus (PCR) Not detected (Not Detect) Stool Cryptosporidium PCR Not detected (Not Detect) Stl E.coli Shiga Tox PCR Not detected (Not Detect) St Sh/Enteroin Ecoli PCR Not detected (Not Detect) Stool E coli O157 PCR Not Reportable Stl Enterotoxigenic E PCR Not detected (Not Detect) Stool EPEC (PCR) Not detected (Not Detect) Stl E. histolytica PCR Not detected (Not Detect) Stool Giardia Lamblia PCR Not detected (Not Detect) Stool Sapovirus (PCR) Not detected (Not Detect) Stl P. shigelloides PCR Not detected (Not Detect) St Y.enterocolitica PCR Not detected (Not Detect) Stool Vibrio (PCR) Not detected (Not Detect) Stl Vibrio cholerae PCR Not detected (Not Detect) Stl Enteroaggr Ecoli PCR Not detected (Not Detect) Stl Norovirus GI/GII PCR Not detected (Not Detect) Campylobacter (PCR) Not detected (Not Detect) C. difficile Tox (PCR) Not detected (Not Detect) Salmonella (PCR) Not detected (Not Detect) Discharge Plan Departure Patient Disposition: Xfer [facility] Clinical Impression: Generalized weakness, Homelessness, Chronic UTI Prescriptions: No Action (DME) Adult Diapers Qty: 30 RF: 12 aspirin 325 mg tablet 325 mg PO DAILY RF: 0 (DME) DISABLED PARKING PLACARD Qty: 1 RF: 0 ergocalciferol (vitamin D2) 50,000 unit capsule 50,000 unit PO QWEEK Qty: 4 RF: 12 atorvastatin 40 mg tablet 40 mg PO BEDTIME Qty: 90 RF: 3 tamsulosin [Flomax] 0.4 mg capsule 0.4 mg PO BEDTIME Qty: 90 RF: 1 carbidopa-levodopa 25-100 mg tablet 1 tab PO TID RF: 0 oxybutynin chloride 5 mg tablet 2.5 mg PO TID RF: 0 Referrals: Katia Frances PA-C [Primary Care Provider] -
--- NOTE | 2020-01-03 21:11 | PM.CN ---
History of Present Illness Consult details Date Patient Seen: 01/03/20 Time Patient Seen: 19:30 Chief complaint: General Weakness Reason for consult: Admission to Hospitalist service Requesting provider: Leon Bullard Narrative: The hospitalist service was requested to render an opinion on admission of this patient. The patient had apparently been sleeping in his car and on the day of presentation to the emergency department he states he was unable to get in and out of the back of his car where he had been sleeping and flagged a bystander who called EMS. EMS brought him to the emergency department where he was found to have a urinary tract infection and was treated with Bactrim. 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 and he is also incontinent of stool. They state he has been having diarrhea, the GI panel is been negative for any infectious or viral cause. Physical therapy has seen him over the last 2 days, and today they were not able to get him to participate because he stated he was too weak. According to the ED provider, case management has been attempting to find him placement. They stated that they had not heard from case management since noon however there is a note from care management written at approximately 4:50 p.m. this afternoon stating that they had not been able to secure placement nor were they going to be able to discharge him to a hotel room due to cost. The care management note further stated that they were going to try to reach the patient's outpatient hearing care practitioner to see if they could find placement for the patient. Due to the patient's incontinence he was turned down for swing bed status at at [facility] where initially they had agreed to accept him. Other notes of stated that having sex offender status though downgraded has been a barrier to having long-term facilities accept him. Review of the patient's chart indicates that he has been in and out of the emergency department multiple times for ?weakness?. Other than generalized weakness, urinary and stool incontinence, the patient's review of systems is negative. Meds Home Medications and Allergies Home Medications Medication Instructions Recorded Confirmed Type Adult Diapers #30 each 08/10/18 01/02/20 Rx DISABLED PARKING PLACARD #1 ea 09/27/18 01/02/20 Rx aspirin 325 mg tablet 325 mg PO DAILY 02/23/19 01/02/20 History ergocalciferol (vitamin D2) 1,250 50,000 unit PO QWEEK #4 cap 06/28/19 01/02/20 Rx mcg (50,000 unit) capsule atorvastatin 40 mg tablet 40 mg PO BEDTIME #90 tab 11/07/19 01/02/20 Rx tamsulosin 0.4 mg capsule 0.4 mg PO BEDTIME #90 cap 11/07/19 01/02/20 Rx carbidopa-levodopa 1 tab PO TID 01/02/20 01/02/20 History oxybutynin chloride 2.5 mg PO TID 01/02/20 01/02/20 History Allergies Allergy/AdvReac Type Severity Reaction Status Date / Time No Known Drug Allergies Allergy Verified 11/16/19 12:22 Review of Systems Review of Systems ROS: Yes All systems reviewed with the patient and are negative except as otherwise documented Exam Vital Signs (past 8 hours): - 01/03/20 15:32 01/03/20 16:00 01/03/20 18:30 Pulse Rate 67 76 86 Respiratory Rate 17 18 15 Blood Pressure [Left Arm] 124/61 127/80 115/84 Pulse Oximetry 97 95 94 Oxygen Delivery Method Room Air Narrative Exam Narrative: General: Alert oriented 74-year-old male appears disheveled and unsteady on his feet, appears older than stated age HEENT: normocephalic, atraumatic, conjunctiva clear, sclera non-icteric, oral mucosa pink and moist Neck: supple, full ROM Skin: Multiple bruises on his arms and legs Neuro: Alert and oriented X 3 w/no focal deficits Extremities: moves all 4 extremities, has enough upper extremity strength to support himself on a walker, able to pivot over to the commode with assistance. Would not ambulate any distance. Psyche: Anxious Objective Labs Result Diagrams: 01/03/20 19:21 01/03/20 19:21 Labs: Laboratory Results - last 24 hr 01/03/20 01/03/20 01/03/20 16:30 19:21 19:21 WBC 10.8 RBC 4.41 L Hgb 13.5 Hct 40.3 L MCV 91.4 MCH 30.7 MCHC 33.6 RDW 14.1 Plt Count 247 Neut % (Auto) 75.6 H Lymph % (Auto) 14.8 L [place] % (Auto) 8.4 Eos % (Auto) 0.6 L Baso % (Auto) 0.6 Neut # (Auto) 8200 H Lymph # (Auto) 1600 [place] # (Auto) 900 Eos # (Auto) 100 Baso # (Auto) 100 Sodium 137 Potassium 3.8 Chloride 109 H Carbon Dioxide 19 L BUN 19 Creatinine 1.00 Estimated GFR > 60.0 BUN/Creatinine Ratio 19.0 Glucose 119 H Calcium 8.5 Stl C. cayetanensis PCR Not detected Stool Rotavirus (PCR) Not detected Stool Adenovirus (PCR) Not detected Stool Astrovirus (PCR) Not detected Stool Cryptosporidium PCR Not detected Stl E.coli Shiga Tox PCR Not detected St Sh/Enteroin Ecoli PCR Not detected Stool E coli O157 PCR Not Reportable Stl Enterotoxigenic E PCR Not detected Stool EPEC (PCR) Not detected Stl E. histolytica PCR Not detected Stool Giardia Lamblia PCR Not detected Stool Sapovirus (PCR) Not detected Stl P. shigelloides PCR Not detected St Y.enterocolitica PCR Not detected Stool Vibrio (PCR) Not detected Stl Vibrio cholerae PCR Not detected Stl Enteroaggr Ecoli PCR Not detected Stl Norovirus GI/GII PCR Not detected Campylobacter (PCR) Not detected C. difficile Tox (PCR) Not detected Salmonella (PCR) Not detected Assessment & Plan Assessment & Plan narrative: Dion Brownlee is a 74-year-old male with a presentation of weakness to the emergency department. He was initially diagnosed with a urinary tract infection and provided Bactrim p.o.. He had an elevated white count upon admission, and it is normalized today. His vital signs are stable and he is afebrile. Discussed his case with attending provider Dr. Hubbard. Left a message with Dr. Mcaias. Inform the emergency department that the patient did not meet criteria for admission, they understood and concurred.
[2020-01-03 22:09] VITALS: BP 121/62; PULSE 75; RESP 18; O2SAT 96
[2020-01-04] VITALS (11 sets, daily range): BP systolic 105–148; BP diastolic 57–83; PULSE 63–89; RESP 16–18; TEMP 36.6–38; O2SAT 92–97; BMI 20.9
--- NOTE | 2020-01-04 00:01 | ED_ITS ---
HPI - Weakness General Chief complaint: Weakness Stated complaint: General Weakness Time Seen by Provider: 01/02/20 11:17 Related Data Home Medications Medication Instructions Recorded Confirmed aspirin 325 mg tablet 325 mg PO DAILY 02/23/19 01/02/20 carbidopa-levodopa 1 tab PO TID 01/02/20 01/02/20 oxybutynin chloride 2.5 mg PO TID 01/02/20 01/02/20 Previous Rx's Medication Instructions Recorded Adult Diapers #30 each 08/10/18 DISABLED PARKING PLACARD #1 ea 09/27/18 ergocalciferol (vitamin D2) 1,250 50,000 unit PO QWEEK #4 cap 06/28/19 mcg (50,000 unit) capsule atorvastatin 40 mg tablet 40 mg PO BEDTIME #90 tab 11/07/19 tamsulosin 0.4 mg capsule 0.4 mg PO BEDTIME #90 cap 11/07/19 Allergies Allergy/AdvReac Type Severity Reaction Status Date / Time No Known Drug Allergies Allergy Verified 11/16/19 12:22 Patient History Medical History Arthritis (Chronic) BPH (benign prostatic hyperplasia) (Chronic) Colon polyps (Resolved) Depression (Chronic) Hernia (Resolved) History of alcohol abuse (Resolved 1980) Hyperlipemia (Chronic) Hypertension (Chronic) Osteopenia (Chronic) Osteoporosis (Chronic) Shoulder pain (Resolved) Urinary retention (Resolved ~04/2017) Surgical History History of cataract removal with insertion of prosthetic lens (02/2016) Hx of cystoscopy (Acute 04/2017) Hx of transurethral resection of prostate (Resolved 04/2017) Status post colectomy (2010) Status post hernia repair (05/2013) Family History Father Alcohol abuse Smoker Mother Osteoporosis Social History household members: none Smoking Status: Never smoker second hand exposure: No alcohol intake: former (Quit 40 years ago.) substance use type: does not use Exam Initial Vital Signs Initial Vital Signs: Vital Signs Temperature 97.8 F 01/02/20 09:00 Pulse Rate 77 01/02/20 09:00 Respiratory Rate 20 01/02/20 09:00 Blood Pressure 126/71 01/02/20 09:00 Pulse Oximetry 96 01/02/20 09:00 Course Orders Ordered: Sodium Chloride (Normal Saline 0.9%) 1,000 mls @ 125 mls/hr IV CONT SKY Last Infusion: 01/02/20 21:48 Dose: 0 mls/hr Documented by: Admin: 01/02/20 12:47 Dose: 125 mls/hr Documented by: NATAN Trimethoprim/Sulfamethoxazole (Bactrim Ds) 1 tab PO BID SKY Last Admin: 01/03/20 20:55 Dose: 1 tab Documented by: Admin: 01/03/20 09:35 Dose: 1 tab Documented by: Admin: 01/03/20 04:40 Dose: 1 tab Documented by: AVA Discontinued Medications Trimethoprim/Sulfamethoxazole (Bactrim Ds) 1 tab PO NOW ONE Stop: 01/02/20 16:40 Last Admin: 01/02/20 17:40 Dose: 1 tab Documented by: SHINE Trimethoprim/Sulfamethoxazole (Bactrim Ds) 1 tab PO NOW ONE Stop: 01/03/20 16:31 Last Admin: 01/03/20 16:33 Dose: Not Given Documented by: ONELIA Vital Signs Vital signs: Vital Signs - 8 hr 01/04/20 00:44 01/04/20 01:08 01/04/20 02:00 Pulse Rate 72 75 Respiratory Rate 18 18 Blood Pressure [Left Arm] 116/63 115/57 L 145/62 H Pulse Oximetry 92 92 01/04/20 07:25 Pulse Rate 81 Respiratory Rate 18 Blood Pressure [Left Arm] 118/63 Pulse Oximetry 95 MDM - Weakness Lab Data Result diagrams: 01/03/20 19:21 01/03/20 19:21 Labs: Lab Results 01/02/20 01/02/20 01/02/20 Range/Units 11:53 11:53 15:05 WBC 12.8 H (4.5-11.0) X10^3/uL RBC 4.72 (4.5-5.9) X10^6/uL Hgb 14.5 (13.5-17.5) g/dL Hct 42.7 (41-53) % MCV 90.4 (80-100) fL MCH 30.8 (26-34) PG MCHC 34.1 (30-36) % RDW 13.9 (11.6-14.8) % Plt Count 278 (150-400) X10^3/uL Neut % (Auto) 81.6 H (50-75) % Lymph % (Auto) 10.7 L (25-40) % [place] % (Auto) 6.7 (3-14) % Eos % (Auto) 0.5 L (2-4) % Baso % (Auto) 0.5 (0-2) % Neut # (Auto) 05086 H (8472-7321) /uL Lymph # (Auto) 1400 (2821-8553) /uL [place] # (Auto) 800 (0-900) /uL Eos # (Auto) 100 (0-450) /uL Baso # (Auto) 100 (0-100) /uL Sodium 141 (137-145) mmol/L Potassium 3.6 (3.4-5.1) mmol/L Chloride 110 H (98-107) mmol/L Carbon Dioxide 21 L (22-32) mmol/L BUN 22 H (9-20) mg/dL Creatinine 0.70 (0.66-1.25) mg/dL Estimated GFR > 60.0 (>60) mL/min BUN/Creatinine Ratio 31.4 H (6-22) Glucose 96 (80-110) mg/dL Calcium 8.8 (8.4-10.2) mg/dL Total Bilirubin 1.0 (0.2-1.3) mg/dL AST 20 (17-59) IU/L ALT 18 (<50) IU/L Alkaline Phosphatase 95 (38-126) U/L Total Protein 7.2 (6.3-8.2) g/dL Albumin 3.8 (3.5-5.0) g/dL Globulin 3.4 (1.7-4.1) g/dL Albumin/Globulin Ratio 1.1 (1.0-2.8) Urine Color Yellow Urine Appearance Cloudy Urine pH 5.5 (4.5-8.0) Ur Specific [place] 1.025 (1.000-1.035) Urine Protein 1+ H (Negative) Urine Glucose (UA) Negative (Negative) g/dL Urine Ketones Trace H (NEGATIVE) Urine Occult Blood 3+ H (Negative) Urine Nitrate Negative (Negative) Urine Bilirubin Negative (NEGATIVE) Urine Urobilinogen 0.2 (0.2) E.U./dL Ur Leukocyte Esterase 2+ H (NEGATIVE) Urine RBC 30-100/hpf H (0-5/HPF) Urine WBC >100/hpf H (0-5/HPF) Urine Bacteria Many (>30) H (None) Ur Culture Indicated? Specimen cultured Stl C. cayetanensis PCR (Not Detect) Stool Rotavirus (PCR) (Not Detect) Stool Adenovirus (PCR) (Not Detect) Stool Astrovirus (PCR) (Not Detect) Stool Cryptosporidium PCR (Not Detect) Stl E.coli Shiga Tox PCR (Not Detect) St Sh/Enteroin Ecoli PCR (Not Detect) Stool E coli O157 PCR Stl Enterotoxigenic E PCR (Not Detect) Stool EPEC (PCR) (Not Detect) Stl E. histolytica PCR (Not Detect) Stool Giardia Lamblia PCR (Not Detect) Stool Sapovirus (PCR) (Not Detect) Stl P. shigelloides PCR (Not Detect) St Y.enterocolitica PCR (Not Detect) Stool Vibrio (PCR) (Not Detect) Stl Vibrio cholerae PCR (Not Detect) Stl Enteroaggr Ecoli PCR (Not Detect) Stl Norovirus GI/GII PCR (Not Detect) Campylobacter (PCR) (Not Detect) C. difficile Tox (PCR) (Not Detect) Salmonella (PCR) (Not Detect) 01/03/20 01/03/20 01/03/20 Range/Units 16:30 19:21 19:21 WBC 10.8 (4.5-11.0) X10^3/uL RBC 4.41 L (4.5-5.9) X10^6/uL Hgb 13.5 (13.5-17.5) g/dL Hct 40.3 L (41-53) % MCV 91.4 (80-100) fL MCH 30.7 (26-34) PG MCHC 33.6 (30-36) % RDW 14.1 (11.6-14.8) % Plt Count 247 (150-400) X10^3/uL Neut % (Auto) 75.6 H (50-75) % Lymph % (Auto) 14.8 L (25-40) % [place] % (Auto) 8.4 (3-14) % Eos % (Auto) 0.6 L (2-4) % Baso % (Auto) 0.6 (0-2) % Neut # (Auto) 8200 H (7968-8217) /uL Lymph # (Auto) 1600 (7143-8373) /uL [place] # (Auto) 900 (0-900) /uL Eos # (Auto) 100 (0-450) /uL Baso # (Auto) 100 (0-100) /uL Sodium 137 (137-145) mmol/L Potassium 3.8 (3.4-5.1) mmol/L Chloride 109 H (98-107) mmol/L Carbon Dioxide 19 L (22-32) mmol/L BUN 19 (9-20) mg/dL Creatinine 1.00 (0.66-1.25) mg/dL Estimated GFR > 60.0 (>60) mL/min BUN/Creatinine Ratio 19.0 (6-22) Glucose 119 H (80-110) mg/dL Calcium 8.5 (8.4-10.2) mg/dL Total Bilirubin (0.2-1.3) mg/dL AST (17-59) IU/L ALT (<50) IU/L Alkaline Phosphatase (38-126) U/L Total Protein (6.3-8.2) g/dL Albumin (3.5-5.0) g/dL Globulin (1.7-4.1) g/dL Albumin/Globulin Ratio (1.0-2.8) Urine Color Urine Appearance Urine pH (4.5-8.0) Ur Specific [place] (1.000-1.035) Urine Protein (Negative) Urine Glucose (UA) (Negative) g/dL Urine Ketones (NEGATIVE) Urine Occult Blood (Negative) Urine Nitrate (Negative) Urine Bilirubin (NEGATIVE) Urine Urobilinogen (0.2) E.U./dL Ur Leukocyte Esterase (NEGATIVE) Urine RBC (0-5/HPF) Urine WBC (0-5/HPF) Urine Bacteria (None) Ur Culture Indicated? Stl C. cayetanensis PCR Not detected (Not Detect) Stool Rotavirus (PCR) Not detected (Not Detect) Stool Adenovirus (PCR) Not detected (Not Detect) Stool Astrovirus (PCR) Not detected (Not Detect) Stool Cryptosporidium PCR Not detected (Not Detect) Stl E.coli Shiga Tox PCR Not detected (Not Detect) St Sh/Enteroin Ecoli PCR Not detected (Not Detect) Stool E coli O157 PCR Not Reportable Stl Enterotoxigenic E PCR Not detected (Not Detect) Stool EPEC (PCR) Not detected (Not Detect) Stl E. histolytica PCR Not detected (Not Detect) Stool Giardia Lamblia PCR Not detected (Not Detect) Stool Sapovirus (PCR) Not detected (Not Detect) Stl P. shigelloides PCR Not detected (Not Detect) St Y.enterocolitica PCR Not detected (Not Detect) Stool Vibrio (PCR) Not detected (Not Detect) Stl Vibrio cholerae PCR Not detected (Not Detect) Stl Enteroaggr Ecoli PCR Not detected (Not Detect) Stl Norovirus GI/GII PCR Not detected (Not Detect) Campylobacter (PCR) Not detected (Not Detect) C. difficile Tox (PCR) Not detected (Not Detect) Salmonella (PCR) Not detected (Not Detect) Discharge Plan Departure Patient Disposition: er [facility] Clinical Impression: Generalized weakness, Homelessness, Chronic UTI Prescriptions: No Action (DME) Adult Diapers Qty: 30 RF: 12 aspirin 325 mg tablet 325 mg PO DAILY RF: 0 (DME) DISABLED PARKING PLACARD Qty: 1 RF: 0 ergocalciferol (vitamin D2) 50,000 unit capsule 50,000 unit PO QWEEK Qty: 4 RF: 12 atorvastatin 40 mg tablet 40 mg PO BEDTIME Qty: 90 RF: 3 tamsulosin [Flomax] 0.4 mg capsule 0.4 mg PO BEDTIME Qty: 90 RF: 1 carbidopa-levodopa 25-100 mg tablet 1 tab PO TID RF: 0 oxybutynin chloride 5 mg tablet 2.5 mg PO TID RF: 0 Referrals: Katia Frances PA-C [Primary Care Provider] -
[2020-01-04] MEDS: TRIMETH/SULFA 160/800 (DS) TABLET 1 TAB PO (10:01)
--- NOTE | 2020-01-04 13:36 | CM.DPNOTE ---
LTC Placement Efforts Pt transferred from the ED rm 10 to rm # [id number] today, admitted observation. Placed call to Yanick Manley P# [phone], had to leave msg requesting CB, Msg indicates Yanick will not be in office today, community visits scheduled. Then placed call to Darin Isaac P# [phone]; he explained that pt's friend Jean-Claude Johnson had driven pt up to [place], he had been admitted to [facility] and his case was transferred to Yanick Vineet. Yanick had attempted SNFs throughout [facility] but pt's Level II Sex Offense was a barrier to placement. Offense was approx 20 yrs ago. Darin unsure whether the case will be transferred back to him but he could see that pt's assessment had been just updated and the daily rate was currently $104.37 C Medium classification. Darin explained that the assessment still needed to be completed and so he could not fax to this MD SENIOR RESEARCH SCIENTIST. Received fax from Yanick, requested by MD SENIOR RESEARCH SCIENTIST Kristin Carrion, w/list of AFHs throughout [facility] that would consider a sex offender (SO). -Placed call to [facility] p# [phone], reviewed referral and they would not consider someone that is not an indp. ambulator. -Placed call to [facility] P# [phone], reviewed referral and daily rate. They have openings but pt would need to be on SBS or ECS and rate increased for them to consider Spoke w/pt's sister Cyril Scott, P# [phone]. She explained she and her sister Katheryn were in contact w/pt and wanting to assist w/placement efforts if possible. This MD SENIOR RESEARCH SCIENTIST unable to share information about pt w/o his permission and Sonia agreed. Sonia explained that she had been in contact w/ an [facility] near her town that accepts Medicaid and has bed openings. She requested this MD SENIOR RESEARCH SCIENTIST place call to this facility; [facility] P# [phone] in case they would accept pt for manager intermediate care. Placed call to [facility] near [place], [place] and had to LM w/admissions line, hopeful to receive CB Wednesday 2.7.20 Placed call to Yanick Vineet and left another msg; updating him re: above and hopeful to hear from him 01.05.20; what is SBS/ECS and can pt's rate be increased? KAM Treviño
[2020-01-04 14:53] LABS: Add Manual Diff / Slide Review NO; Basophils Absolute Auto 100 /uL (0-100); Basophils Percent Auto 0.7 % (0-2); Eosinophils Absolute Auto 100 /uL (0-450); Eosinophils Percent Auto 0.7 % (2-4); Hematocrit 40.1 % (41-53); Hemoglobin 13.8 g/dL (13.5-17.5); Lymphocytes Absolute Auto 1600 /uL (1100-4500); Lymphocytes Percent Auto 14.9 % (25-40); Mean Corpuscular HGB Conc 34.3 % (30-36); Mean Corpuscular Hemoglobin 30.8 PG (26-34); Mean Corpuscular Volume 89.8 fL (80-100); Monocytes Absolute Auto 800 /uL (0-900); Monocytes Percent Auto 7.5 % (3-14); Neutrophils Absolute Auto 8300 /uL (1500-7000); Neutrophils Percent Auto 76.2 % (50-75); Platelet Count 243 X10^3/uL (150-400); Red Blood Cell Count 4.47 X10^6/uL (4.5-5.9); White Blood Cell Count 10.9 X10^3/uL (4.5-11.0)
[2020-01-04] MEDS: CARBIDOPA-LEVODOPA 25/100 TABLET 1 EACH PO ×2 (15:02→21:23)
[2020-01-04] MEDS: OXYBUTYNIN 5 MG TABLET 2.5 MG PO ×2 (15:02→21:22)
[2020-01-04 15:06] LABS: Blood Urea Nitrogen 13 mg/dL (9-20); Calcium 8.5 mg/dL (8.4-10.2); Carbon Dioxide 17 mmol/L (22-32); Chloride 109 mmol/L (98-107); Estimated Glomerular Filt Rate > 60.0 mL/min (>60); Glucose 138 mg/dL (80-110); HEMOLYSIS < 15 (0-50); Potassium 3.7 mmol/L (3.4-5.1); Sodium 138 mmol/L (137-145)
[2020-01-04 15:23] LABS: Procalcitonin < 0.05 ng/mL (<0.5)
--- NOTE | 2020-01-04 15:46 | PC.ADMIT ---
[address] Admission Note: The patient,Dion Suresh,74 y/o, was given written information regarding hospital policies, unit procedures and contact persons. Patient's smoking status: Never smoker. Vital Signs - 8 hr 01/04/20 09:00 01/04/20 10:06 01/04/20 11:30 Temperature Pulse Rate 88 89 73 Respiratory Rate 16 16 16 Blood Pressure Blood Pressure [Left Arm] 121/65 148/83 H 124/69 Pulse Oximetry 97 96 94 01/04/20 12:40 Temperature 100.4 F H Pulse Rate 77 Respiratory Rate 18 Blood Pressure 133/70 Blood Pressure [Left Arm] Pulse Oximetry 96 Pt arrived on the unit. Transferred to bed via transfer board from [facility]. Incontinent of urine x2 this shift. appropriate with care. on skin assessment two 0.5cmx0.5cm PU found on R buttock. picture taken.
--- NOTE | 2020-01-04 16:11 | PT.IPTN ---
Physical Therapy Treatment Note M2 PT-IP Current Condition Start: 01/02/20 14:46 Freq: Status: Active Protocol: Document 01/02/20 14:50 AB (Rec: 01/02/20 15:08 AB [id number]) Physical Therapy Current Condition Current Condition Evaluation Date 01/02/20 Treatment Diagnosis weakness; difficulty in walking Onset Date 01/02/2020 M3 PT-IP Subjective Start: 01/02/20 14:46 Freq: Status: Active Protocol: Document 01/04/20 14:00 AMB (Rec: 01/04/20 16:10 AMB [email or web address]) Subjective Physical Therapy Visit Type Type Treatment Note Visit Start Time 14:00 Visit Stop Time 14:20 Total Visit Minutes 20 Physical Therapy Visit Comments Patient Comments Pt is willing to work with PT, states he has right leg pain when he walks a lot, but no pain right now. M4 PT-IP Mobility and Gait Start: 01/02/20 14:46 Freq: Status: Active Protocol: Document 01/04/20 14:00 AMB (Rec: 01/04/20 16:10 AMB [email or web address]) PT-Bed Mobility Assessment Rolling Type of Rolling Roll to Left Level of Assist Independent Supine to Sit Supine to Sit Standby Assistance,1 Person Assistance Sit to Supine Sit to Supine Independent Scooting Scooting to Edge of Bed Standby Assistance PT-Transfer Assessment Sit to and From Stand Sit to and from Stand Moderate Assistance,1 Person Assistance,Use of Upper Extremities Equipment Transfer Assistive Device Gait Belt,Front Wheeled Walker Orthotic/Prosthetic Devices or Brace: No Comments Mobility Comments Pt completed sit to stand 2x with ModA. Tends to posterior lean hard and needed max cues for forward lean for sit to stand. PT-Balance Assessment Comments Other Balance Tests/Deviations/Treatment Standing balance with FWW. : Stood with patient for 2 minutes x2, pt's legs fatigued and needed to sit down quickly. ModA for standing balance to prevent posterior LOB. Cues to push toes into ground. Tremors present which made pt feel more off balance . M5 PT-IP Objective Assessments Start: 01/02/20 14:46 Freq: Status: Active Protocol: Document 01/02/20 14:50 AB (Rec: 01/02/20 15:08 AB [id number]) Orientation Orientation/Cognition Level of Alertness Alert Orientation Name,Place,Situation Safety Awareness Decreased Safety Awareness Gross Range of Motion Lower Extremity ROM Assessment Bilaterally Impaired Impairments increase bilateral LE tightness/rigidity Strength Lower Extremity Strength Assessment Bilaterally Impaired Hip 3+/5 Knee 3+/5 Ankle 3/5 Muscle Tone Muscle Tone WNL No Muscle Tone Location Bilateral Lower Extremity Type of Tone Hypertonicity,Rigidity Severity of Tone Mild M6 PT-IP Treatment Start: 01/02/20 14:46 Freq: Status: Active Protocol: Document 01/02/20 14:50 AB (Rec: 01/02/20 15:08 AB [id number]) Physical Therapy Treatment Education Education Provided Safety M7 PT-IP Assessment and Plan Start: 01/02/20 14:46 Freq: Status: Active Protocol: Document 01/04/20 14:00 AMB (Rec: 01/04/20 16:10 AMB [email or web address]) PT Summary Assessment and Plan Summary Assessment Summary Pt required ModA for sit to stand and standing balance today, but did not perform gait due to pt imbalance and posterior leaning. Pt will need SNF rehab to improve safety and tolerance with gait. . Goals Bed Mobility Goal Standby Assistance Transfer Goal Standby Assistance,Front Wheeled Walker Gait Goal Standby Assistance,Front Wheel Walker Gait Distance 200 Days to Meet Goals 10 Frequency of Treatment Frequency Of Treatment Once a Day Treatment Plan Physical Therapy Treatment Plan Bed Mobility Training,Transfer Training,Gait Training, Therapeutic Exercise,Balance Retraining,Discharge Planning, Hot or Cold Pack,Neuromuscular Re-ed,Coordination Retraining ,Manual Therapy Other Recommendations and Next Treatment ambulation, standing balance/ Focus tolerance Recommendations To Nursing Amount of Assist Needed 2 Person Assist Discharge Recommendations PT Discharge Recommendations SNF Rehab Transportation Needs at Discharge Wheelchair/Cabulance
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
[2020-01-04 17:35] LABS: Creatine Kinase 37 U/L (55-170)
[2020-01-04 17:38] LABS: Hemoglobin A1C% w Est Avg Glu 5.1 % (4.0-6.0)
[2020-01-04 18:06] LABS: TSH w/ Reflex to FT4 0.56 uIU/mL (0.47-4.68)
[2020-01-04 18:26] LABS: Vitamin B12 316 pg/mL (239-931)
[2020-01-04] MEDS: ATORVASTATIN 20 MG TABLET 40 MG PO (21:06)
[2020-01-04] MEDS: TAMSULOSIN 0.4 MG CAPSULE PO (21:06)
[2020-01-04] MEDS: HEPARIN 5,000 UNIT/ML VIAL 5000 UNIT SUBCUT (21:06)
[2020-01-04] MEDS: AMOXICILLIN 250 MG CAPSULE 1000 MG PO (21:22)
[2020-01-05 04:00] VITALS: BP 113/63; PULSE 70; RESP 18; TEMP 36.9; O2SAT 93
[2020-01-05 05:37] LABS: Add Manual Diff / Slide Review NO; Basophils Absolute Auto 100 /uL (0-100); Eosinophils Absolute Auto 200 /uL (0-450); Eosinophils Percent Auto 2.2 % (2-4); Hematocrit 40.8 % (41-53); Lymphocytes Absolute Auto 1900 /uL (1100-4500); Lymphocytes Percent Auto 19.2 % (25-40); Mean Corpuscular HGB Conc 34.2 % (30-36); Mean Corpuscular Volume 90.7 fL (80-100); Monocytes Absolute Auto 900 /uL (0-900); Monocytes Percent Auto 8.7 % (3-14); Neutrophils Absolute Auto 6800 /uL (1500-7000); Neutrophils Percent Auto 68.9 % (50-75); Platelet Count 242 X10^3/uL (150-400); Red Cell Distribution Width 14.4 % (11.6-14.8); White Blood Cell Count 9.8 X10^3/uL (4.5-11.0)
--- NOTE | 2020-01-05 08:05 | P.PN_ITS ---
Subjective Subjective Date Patient Seen: 01/05/20 Interval history: Dion Suresh is a 74-year-old homeless gentleman who is a poor and unreliable historian with past medical history significant for hypertension, hyperlipidemia, BPH status post TURP, and Parkinson's disease who presented to the ED via EMS due to generalized weakness. The patient has spent over 48 hours boarding in the ED and administration requested patient be admitted as observation until placement is found. The patient is resting in bedside chair comfortably. He reports he is fatigued and it is close to his nap time. He has no other complaints and denies headache, shortness of breath, chest pain, abdominal pain, nausea, vomiting, fever, chills, dysuria, or constipation. He endorses loose stool and chronic cough and rhinitis. He is incontinent of urine but voiding without difficulty. We clarified with the patient and he is not incontinent of stool but does have trouble at times making it to the bathroom in time. He is eliminating without difficulty. He is up ambulating with forward wheeled walker and contact guard assistance with physical therapy. Exam Vital Signs (past 8 hours): - 01/05/20 04:00 Temperature 98.5 F Pulse Rate 70 Respiratory Rate 18 Blood Pressure 113/63 Pulse Oximetry 93 Oxygen Delivery Method Room Air Oxygen Flow Rate 0 Narrative Exam Narrative: General: Elderly thin gentleman lying in bed and in no acute distress, appears older than stated age, odd tangential thinking but otherwise appropriately interactive. HEENT: Normocephalic, atraumatic. External ears without defect. Pupils equal, round, and reactive to light. Anicteric sclerae, moist conjunctivae, and no lid lag. Oropharynx free of erythema and cobble stoning with moist mucosa. Temporal wasting. Poor dentition Neck: Supple with full range of motion. No lymphadenopathy or thyromegaly. Cardiovascular: Heart sounds distant but appears to be regular rate and rhythm without murmurs, rubs, or gallops appreciated. Pulmonary: Clear to auscultation bilaterally with occasional scattered fine crackles. No wheezes or rhonchi. Normal respiratory effort with no use of accessory muscles. Abdomen: Soft, bowel sounds present, nontender, nondistended. No suprapubic or CVA tenderness. No hepatosplenomegaly or masses appreciated. Umbilical hernia and several ventral hernias. Extremities: No clubbing, cyanosis, or edema. Muscle wasting of lower extremities. Skin: Normal temperature, turgor, and texture; no rash or subcutaneous nodules appreciated. Two stage II 1-2 mm decubitus pressure ulcerations on medial aspect of right gluteus that do not appear infected and are healing. Neurological: Cranial nerves grossly intact. Generalized weakness. No focal neurological deficits. Psychiatric: Normal mood and affect. Tangential thinking. Alert and oriented to person and place. Mild dementia with short-term memory recall deficit. Objective Labs Result Diagrams: 01/05/20 04:55 01/04/20 14:44 Labs: Laboratory Results - last 24 hr 01/04/20 01/04/20 01/04/20 14:44 14:44 14:44 WBC 10.9 RBC 4.47 L Hgb 13.8 Hct 40.1 L MCV 89.8 MCH 30.8 MCHC 34.3 RDW 14.0 Plt Count 243 Neut % (Auto) 76.2 H Lymph % (Auto) 14.9 L [place] % (Auto) 7.5 Eos % (Auto) 0.7 L Baso % (Auto) 0.7 Neut # (Auto) 8300 H Lymph # (Auto) 1600 [place] # (Auto) 800 Eos # (Auto) 100 Baso # (Auto) 100 Sodium 138 Potassium 3.7 Chloride 109 H Carbon Dioxide 17 L BUN 13 Creatinine 1.00 Estimated GFR > 60.0 BUN/Creatinine Ratio 13.0 Glucose 138 H Hemoglobin A1c Calcium 8.5 Total Creatine Kinase Vitamin B12 Procalcitonin < 0.05 TSH 01/04/20 01/04/20 01/04/20 14:44 14:44 14:44 WBC RBC Hgb Hct MCV MCH MCHC RDW Plt Count Neut % (Auto) Lymph % (Auto) [place] % (Auto) Eos % (Auto) Baso % (Auto) Neut # (Auto) Lymph # (Auto) [place] # (Auto) Eos # (Auto) Baso # (Auto) Sodium Potassium Chloride Carbon Dioxide BUN Creatinine Estimated GFR BUN/Creatinine Ratio Glucose Hemoglobin A1c 5.1 Calcium Total Creatine Kinase Vitamin B12 316 Procalcitonin TSH 0.56 01/04/20 01/05/20 14:44 04:55 WBC 9.8 RBC 4.50 Hgb 14.0 Hct 40.8 L MCV 90.7 MCH 31.0 MCHC 34.2 RDW 14.4 Plt Count 242 Neut % (Auto) 68.9 Lymph % (Auto) 19.2 L [place] % (Auto) 8.7 Eos % (Auto) 2.2 Baso % (Auto) 1.0 Neut # (Auto) 6800 Lymph # (Auto) 1900 [place] # (Auto) 900 Eos # (Auto) 200 Baso # (Auto) 100 Sodium Potassium Chloride Carbon Dioxide BUN Creatinine Estimated GFR BUN/Creatinine Ratio Glucose Hemoglobin A1c Calcium Total Creatine Kinase 37 L Vitamin B12 Procalcitonin TSH Assessment & Plan Assessment & Plan narrative: Dion Suresh is a 74-year-old homeless gentleman who is a poor and unreliable historian with past medical history significant for hypertension, hyperlipidemia, BPH status post TURP, and Parkinson's disease who presented to the ED via EMS due to generalized weakness. The patient has spent over 48 hours boarding in the ED and administration requested patient be admitted as observation until placement is found. 1. Acute on chronic debility, deconditioning and failure to thrive, present on admission. Stable. -Patient has known progressive worsening generalized weakness, gait instability, and deconditioning (secondary to chronic severe protein calorie malnutrition and muscle loss with possible Parkinson's disease and recurrent UTI contributing transiently) to the extent that the patient was having trouble walking without significant assistance and he was having difficulty performing ADLs including bathing or changing himself. -Patient denies any recent trauma or significant falls. Clinical exam reveals no abrasions or signs of trauma. -Patient is known to have B12 deficiency, however, B12 level normal at 316 and non-contributory to gait instability. -Total creatinine kinase low at 37. -Continue physical and occupation therapy evaluation and treatment. Requested OT to perform SLUMS -Ordered palliative care consultation for psychosocial complexity and goals of care discussion, pending. -Recommend outpatient psychiatric evaluation and treatment per PCP. 2. Chronic severe protein calorie malnutrition, present on admission. Stable. -Secondary to scarcity of food due to living situation as he is homeless in conjunction with chronic debility as above. -BMI 20.9. -Consulted dietitian and we appreciate her time, recommendations and resources provided. 3. Recurrent complicated UTI, present on admission. Resolving. -Patient presented for generalized weakness with dysuria and history of recurrent UTI. -Urine culture preliminarily growing Enterococcus sensitive to amoxicillin. -Patient received 2 days of Bactrim. Continue amoxicillin 1 g twice daily 4. Two stage II decubitus pressure ulcerations on right gluteus, chronic, present on admission. Stable. -Patient has two stage II 1-2 mm decubitus pressure ulcerations on medial aspect of right gluteus that do not appear infected and are healing. -Continue to apply barrier cream and perform frequent turns/repositioning every 2 hours. 5. Possible Parkinson's disease, chronic, present on admission. Stable. -Unclear diagnosis. -Continue carbidopa levodopa 1 tab 3 times daily. 6. Hyperlipidemia, chronic, present on admission. Stable. -Continue aspirin decreased from 325 mg to 81 mg daily as no added cardiovascular benefit and increases risk of GI side effects and bleeding and atorvastatin 40 mg daily at bedtime. 7. Hypertension, chronic, present on admission. Stable. -Patient not medically treated. BP well controlled without intervention and may no longer have hypertension. Continue to monitor blood pressure closely and treat if necessary. 8. BPH status post TURP with urinary incontinence, chronic, present on admission. Stable. -Continue oxybutynin 2.5 mg 3 times daily and tamsulosin 0.4 mg daily at bedtime. Code status: Full code VTE prophylaxis: SQ Heparin Disposition: Patient will discharge tomorrow morning after arrangements have been made for safest outpatient discharge plan and all outpatient resources investigated and provided. Quality VTE Deep Vein Thrombosis/Pulmonary Embolism Present on Admission: No
[2020-01-05 09:05] VITALS: BP 122/65; PULSE 74; RESP 16; TEMP 36.7; O2SAT 96
[2020-01-05] MEDS: LACTOBACILLUS ACIDOPHILUS TABLET 1 EACH PO ×2 (10:12→17:59)
[2020-01-05] MEDS: AMOXICILLIN 250 MG CAPSULE 1000 MG PO ×2 (10:12→21:27)
[2020-01-05] MEDS: OXYBUTYNIN 5 MG TABLET 2.5 MG PO ×3 (10:12→21:28)
[2020-01-05] MEDS: CARBIDOPA-LEVODOPA 25/100 TABLET 1 EACH PO ×3 (10:12→21:28)
[2020-01-05] MEDS: ASPIRIN EC 81 MG TABLET PO (10:12)
[2020-01-05] MEDS: HEPARIN 5,000 UNIT/ML VIAL 5000 UNIT SUBCUT ×2 (10:12→21:28)
[2020-01-05] MEDS: SODIUM CHLORIDE 0.9% FLUSH 10 ML IV ×2 (10:13→21:28)
[2020-01-05] MEDS: ACETAMINOPHEN 325 MG TABLET 650 MG PO (10:17)
--- NOTE | 2020-01-05 10:52 | PT-IP ANOTE ---
pt not seen for PT 2/5 due to schedule conflict
[2020-01-05 12:50] VITALS: BP 97/45; PULSE 71; RESP 18; TEMP 36.3; O2SAT 95
[2020-01-05 13:40] VITALS: BP 122/63; PULSE 70
--- NOTE | 2020-01-05 13:50 | PM.CN.PC.1 ---
History of Present Illness Consult details Date Patient Seen: 01/05/20 Time Patient Seen: 15:05 Chief complaint: General Weakness Reason for consult: Palliative Medicine Consultation Requesting provider: Annie Hubbard Narrative: 74M patient of Sheridan Finnegan with PMH significant for hypertension, hyperlipidemia, BPH status post TURP, and Parkinson's disease presented to the ED via EMS after he flagged down assistance from a bystander when he found himself too weak to independently get himself out of his vehicle, where he lives. The patient is well-known to this facility and is homeless, lives in his vehicle. The patient has chronic progressive gait instability with deconditioning and debility, and per H&P, he is incontinent of both bowel and bladder and is unable to perform ADLs including bathe or change himself. This is the patient's 12th visit to the [place] ED since the beginning of July, and the second hospitalization here since that time. He presented to the ED 01/02/2020 requesting assistance with [place] [facility] care [place], which has previously proved challenging for prior legal infractions. His chief complaint upon presentation this ED visit was chronic rhinitis and pain of his right lower extremity, previously managed by cortisone injections by orthopedics. Patient was noted to have an acute, recurrent UTI as well as Stage 2 decubitus ulcers on admission. Additionally, he has suffered >10% body weight in the past 6 months, weighing 149lbs 08/11/2020 and current weight 133lbs. Social History: Patient was born and raised in the [facility], and had 5 siblings, two of whom are still living. Sisters Tracey and Sonia reside in [place], [place] and he states that Sonia has been calling, inquiring about his condition. Patient is currently homeless. He identifies as a Nondenominational, having involved in the [employer] for the past 39 years. Patient believes that there will be a resurrection after his and states he does not fear dying, but does think about suffering he may need to endure prior to his . 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 He worked for a couple of years at the [employer], then spent most of the next 25 years in skilled nursing, first for a crime and then for a parole violation. He is open about his previous law infractions and that he is a recovering alcoholic, which has caused some family estrangements. 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 He lived with his mother for several years. Most recently, he has been living out of his car after losing an apartment here in [place]. He has attempted to get into a homeless assisted in [place], which he describes as a hobo camp, but was turned away because of his prior offences. He most trusts his spiritual brother Jean-Claude Johnson to make medical decisions for him should he become incapacitated, but does not have a [facility] or Living Will. Patient is noted per admission orders to be a FULL CODE here at the medical center. Reason for consultation Because of the patient's profound general decline in clinical status over months, frailty evident by weakness, frequent falls and inability to independently get in and out of his vehicle, where he lives; inability to provide of adequate self care, severe malnutrition (dramatic, unintentional weight loss, fatigue, weakness) and stage 2 wounds on his sacrum, patient suffers from debility and the medical team is requesting a dialogue with him regarding goals of care and clarification of this gentleman's specific medical goals. Attending physician has requested palliative medicine to assist in furthering conversation with patient and family, if available, regarding the complex and sensitive medical issues of the perceived benefits/burdens of continued life prolonging treatments, realistic prognosis, perspectives on and dying, priority in clinical care and burden of physical, emotional and spiritual symptoms for patient and family. I have reviewed the medical record, radiographs, diagnostics, interviewed the patient. The following aspects are pertinent, current and remote medical history, social/emotional and family dynamics, current medications and effects, ROS, examination findings, prognosis, care planning, goal setting. Meds Home Medications and Allergies Home Medications Medication Instructions Recorded Confirmed Type Adult Diapers #30 each 08/10/18 01/02/20 Rx DISABLED PARKING PLACARD #1 ea 09/27/18 01/02/20 Rx aspirin 325 mg tablet 325 mg PO DAILY 02/23/19 01/02/20 History ergocalciferol (vitamin D2) 1,250 50,000 unit PO QWEEK #4 cap 07/31/19 02/04/20 Rx mcg (50,000 unit) capsule atorvastatin 40 mg tablet 40 mg PO BEDTIME #90 tab 11/07/19 01/02/20 Rx tamsulosin 0.4 mg capsule 0.4 mg PO BEDTIME #90 cap 11/07/19 01/02/20 Rx carbidopa-levodopa 1 tab PO TID 01/02/20 01/02/20 History oxybutynin chloride 2.5 mg PO TID 01/02/20 01/02/20 History Allergies Allergy/AdvReac Type Severity Reaction Status Date / Time No Known Drug Allergies Allergy Verified 11/16/19 12:22 Review of Systems Constitutional Comments: Symptoms: Patient currently denies pain or discomfort, denies shortness of breath, denies nausea and vomiting, diarrhea, constipation. Exam Vital Signs (past 8 hours): - 01/05/20 09:05 01/05/20 12:50 01/05/20 13:40 Temperature 98.0 F 97.4 F L Pulse Rate 74 71 70 Respiratory Rate 16 18 Blood Pressure 122/65 97/45 L 122/63 Pulse Oximetry 96 95 Oxygen Delivery Method Room Air Oxygen Flow Rate 0 Narrative Exam Narrative: 74M visited today at bedside for palliative medicine consultation. He is thin, pallid, and disheveled, laying in bed. Obvious tremor of upper extremities, hands. He stutters somewhat while speaking. He persevorates at length on his troubles in getting into a homeless assisted, reporting this is not an ideal situation but better than sleeping in my car every night, and states, It's better than dying in my car or on the street. Const General: cooperative, No healthy appearing, comfortable, well developed, No well groomed, disheveled and ill appearing (chronically ill appearing, disheveled.) Nutritional Appearance: thin (BMI 20.9) Orientation: alert, awake and oriented x3 HENMT Head: normal to inspection and normocephalic Ears: hearing grossly normal bilaterally Resp Effort & Inspection: normal respiratory effort and able to speak in complete sentences Skin General: pallor Wounds: no wounds Neuro General: alert, awake and oriented x3 Psych Appearance: grossly abnormal and disheveled Mental Status: mental status grossly normal Speech and Movement: speech and movement normal Mood: expansive Affect: normal affect Attitude: cooperative Thought Process: perseverating Thought Content: normal Judgment: fair Objective Labs Result Diagrams: 01/05/20 04:55 01/04/20 14:44 Labs: Laboratory Results - last 24 hr 01/04/20 01/04/20 01/04/20 14:44 14:44 14:44 WBC 10.9 RBC 4.47 L Hgb 13.8 Hct 40.1 L MCV 89.8 MCH 30.8 MCHC 34.3 RDW 14.0 Plt Count 243 Neut % (Auto) 76.2 H Lymph % (Auto) 14.9 L Lea % (Auto) 7.5 Eos % (Auto) 0.7 L Baso % (Auto) 0.7 Neut # (Auto) 8300 H Lymph # (Auto) 1600 Lea # (Auto) 800 Eos # (Auto) 100 Baso # (Auto) 100 Sodium 138 Potassium 3.7 Chloride 109 H Carbon Dioxide 17 L BUN 13 Creatinine 1.00 Estimated GFR > 60.0 BUN/Creatinine Ratio 13.0 Glucose 138 H Hemoglobin A1c Calcium 8.5 Total Creatine Kinase Vitamin B12 Procalcitonin < 0.05 TSH 01/04/20 01/04/20 01/04/20 14:44 14:44 14:44 WBC RBC Hgb Hct MCV MCH MCHC RDW Plt Count Neut % (Auto) Lymph % (Auto) Lea % (Auto) Eos % (Auto) Baso % (Auto) Neut # (Auto) Lymph # (Auto) Lea # (Auto) Eos # (Auto) Baso # (Auto) Sodium Potassium Chloride Carbon Dioxide BUN Creatinine Estimated GFR BUN/Creatinine Ratio Glucose Hemoglobin A1c 5.1 Calcium Total Creatine Kinase Vitamin B12 316 Procalcitonin TSH 0.56 01/04/20 01/05/20 14:44 04:55 WBC 9.8 RBC 4.50 Hgb 14.0 Hct 40.8 L MCV 90.7 MCH 31.0 MCHC 34.2 RDW 14.4 Plt Count 242 Neut % (Auto) 68.9 Lymph % (Auto) 19.2 L Lea % (Auto) 8.7 Eos % (Auto) 2.2 Baso % (Auto) 1.0 Neut # (Auto) 6800 Lymph # (Auto) 1900 Lea # (Auto) 900 Eos # (Auto) 200 Baso # (Auto) 100 Sodium Potassium Chloride Carbon Dioxide BUN Creatinine Estimated GFR BUN/Creatinine Ratio Glucose Hemoglobin A1c Calcium Total Creatine Kinase 37 L Vitamin B12 Procalcitonin TSH Assessment & Recommendations A & R narrative: Met with the patient at bedside. He consents to this palliative medicine consultation. Patient has a rudimentary understanding of his underlying medical conditions and reports he has been previously hospitalized for 2 weeks in [place], [place], prior to this current hospitalization. He states that he is not sure if he has Parkinson's disease and that he needs further workup for this, he states this is directed by a provider in [place] but is unable to remember the provider's name. States that he is incontinent of urine due to a surgical procedure he had remotely for prostate cancer, and reports he has had difficulty sometimes making it to the bathroom since he had a bowel resection while incarcerated, many years ago. Patient most trusts his spiritual brother Jean-Claude Johnson to help make medical decisions for himself should he become mentally incapacitated. He is willing to fill out a DPAHC naming this gentleman as his healthcare agent, though he does not remember his phone number. He states he has a strong spiritual lalito and is not afraid to , and if he is found in extremis, he would not want to be resuscitated, but later recants this statement, clarifying that if it were to be a short term thing, that would be ok. At this time, it is recommended that patient's resuscitation status remain FULL CODE, but that renal social worker offer him the opportunity to nominate formally a Durable Power of [employer] for Healthcare. Discussed the outcome of this Palliative Medicine Consultation with Dr. Hubbard as well as the [employer] team. Thank you for the opportunity to serve this gentleman and be involved in his plan of care. Palliative medicine will follow this case expectantly. Coding: - Parkinson's Disease - UTI - >10% unintentional weight loss in past 6 months - Mild protein calorie malnutrition (Albumin 3.8) - Urinary Incontinence - Generalized Weakness - Documented Stage 2 sacral wounds (healing) - Palliative Medicine Consultation To remain informed regarding current treatment opportunities, provider reviewed extensive additional documentation of multiple treatment providers/facilities which was utilized to update the management plan. Total time in review of additional medical information is 20 minutes, external to in person evaluation. Time in assessment and management of acute and chronic medical diagnoses, pertinent history to palliative medicine decision making, discussion and management of clinical findings enumerated above as well as fears regarding the transition to a more end of life plan and and dying is 30 minutes, more than half of which is necessary for education and counseling. Time Spent With Patient Time with patient: 25 - 35 minutes
[2020-01-05 13:56] VITALS: BMI 20.9
--- NOTE | 2020-01-05 14:05 | DIET.PN ---
Addendum entered by Graciela Dominguez 01/05/20 16:19: Pt does not endorse utilizing nae meal programs or the food bank. Pt has no facility to prepare foods and does not drive in the dark reducing opportunities for evening meals in the winter months. [facility] pt attend meal sites to help stretch his budget and to purchase low cost ready made items like peanut butter, bananas, hard boiled eggs, tuna packets, and whole wheat bread which are shelf stable and provides missing nutrients to pt's current diet. Original Note: Dietary Progress Note Assessment: 74y M referred to nutrition to assess protein calorie malnutrition and food insecurity/homelessness. Pt endorses being incarcerated for 22y, has had difficulty securing housing and work since 2011. Pt has been living in his truck (which he reports is 32 years old) for past 18mo, sleeping in drivers seat, is incontinent of urine and stool and eats one meal per day that he purchases from the [employer]. Pt reports being barred from using city public restrooms and from [employer]. Pt able to shop at [employer] after 4pm. Pt has $785/mo total income. Pt reports difficulty accessing facility to perform self care and cleaning. States I can't change my adult diapers on the street so they leak on my clothes. Brushes teeth in vehicle. Pt's PCM is complicated by food insecurity. Pt's weight has fluctuated by 12kg in past 2y, occasionally friends will feed him or let him stay over in a room, but always ends up living in truck and running out of money to purchase food. Pt is at lowest body weight to date. Pt reports eating 1 meal/d of bar food and sometimes will have a snack of potato chips or popcorn. Pts diet is deficient in fruits/vegetables/whole grains/dietary fiber and likely micronutrients with no multivitamin use. Pt is a former alcoholic (40y ago). Pt has stage 2 healing ulcers on bottom, suffers from tremor which he is unsure is Parkinsons, and has mild dementia. HT: 170.1cm WT: 60.5kg UBW: 67kg (09/30/19 [facility] records) BMI: 20.9 severe for age MNA: 4 malnourished Ulisses: 16 at risk for skin breakdown Nutrition Diagnosis: Severe Chronic PCM r/t food and housing insecure senior citizen aeb 9.8% unintentional wt loss in 3mo (severe), BMI 20.9 (severe for age), <75% EERs in >1mo, NFPE showing moderate subcutaneous fat losses system wide, pt 74y old living in vehicle for 18mo endorsing eating one meal/d, incontinent of urine and feces. Interventions: Recc ONS Ensure Enlive tid to supply 58% of kcals and 75% of protein to support PCM and promote weight and muscle gain. Diet Order: General EER: 1800kcal, 80g PRO (1.3g/kg per maln), 1.9L fluids Monitoring/Evaluations:ons tolerance, POs, weight
--- NOTE | 2020-01-05 15:01 | PT.IPTN ---
Physical Therapy Treatment Note M2 PT-IP Current Condition Start: 01/02/20 14:46 Freq: Status: Active Protocol: Document 01/02/20 14:50 AB (Rec: 01/02/20 15:08 AB [id number]) Physical Therapy Current Condition Current Condition Evaluation Date 01/02/20 Treatment Diagnosis weakness; difficulty in walking Onset Date 01/02/2020 M3 PT-IP Subjective Start: 01/02/20 14:46 Freq: Status: Active Protocol: Document 01/05/20 10:14 LJ (Rec: 01/05/20 15:01 LJ [email or web address]) Subjective Physical Therapy Visit Type Type Treatment Note Visit Start Time 10:14 Visit Stop Time 10:34 Total Visit Minutes 20 Physical Therapy Visit Comments Patient Comments Pt in bed willing to get up and walk. States his brief is full. M4 PT-IP Mobility and Gait Start: 01/02/20 14:46 Freq: Status: Active Protocol: Document 01/05/20 10:14 LJ (Rec: 01/05/20 15:01 LJ [email or web address]) PT-Bed Mobility Assessment Rolling Type of Rolling Roll to Right Level of Assist Independent Supine to Sit Supine to Sit Independent,Head of Bed Elevated Sit to Supine Sit to Supine Independent PT-Transfer Assessment Sit to and From Stand Sit to and from Stand Independent,1 Person Assistance,Use of Upper Extremities Equipment Transfer Assistive Device Gait Belt,Front Wheeled Walker Orthotic/Prosthetic Devices or Brace: No Transfers Transfer Destination Chair Transfer Technique ambulated using FWW Transfer Ability Level of Assist Standby Assistance,1 Person Assistance,Use of Upper Extremities Comments Mobility Comments Pt completed bed mobility independent to SBA. Required no cues for managing FWW. Sit< >stand x 4 (2 during brief change) with proper hand placement. Pt demonstrated did not struggle to get out of bed or have posterior lean this treatment. Pt required brief change at end of session . Brief was spread out on edge of bed and pt sat on top of it. He was able to lean back and maintain balance w/o using UEs during taping of brief while sitting on side of bed. Gait Assessment Gait Gait Assistance Required: Standby Assistance,Contact Guard Assist,1 Person Assist Distance (Feet) 30 Able to Maintain Weight Bearing Status Yes During Gait Assistive Devices Assistive Device Gait Belt,Front Wheeled Walker Orthotic/Prosthetic Devices or Brace: No Gait Deviations General Gait Pattern Decreased Stride Length, Decreased Feet Clearance, Narrow Based Gait Factors Limiting Gait Function Factors Limiting Gait Function Abnormal Tonal Influences, Decreased Activity Tolerance, Decreased Strength,Limited Range of Motion,Poor Balance, Poor Safety Awareness Comments Gait Comments Pt ambulated to window seat CGA and around foot of bed to door and back to chair CGA to hang onto brief which was slipping down his legs. At foot of bed the brief fell to the floor and pt stood while therapist removed one side from foot. Pt stood on left LE hanging onto FWW and kicked off the brief from the right foot. Pt then continued to ambulate around the bed to the other side and stood with FWW while therapist placed brief on bed. Pt positioned himself to sit on the brief but missed and had to stand to reposition. He sat on the brief and once it was fastened onto him he stood and ambulated 3 feet to the chair where he was able to lower himself to sitting position appropriately and independently M5 PT-IP Objective Assessments Start: 01/02/20 14:46 Freq: Status: Active Protocol: Document 01/02/20 14:50 AB (Rec: 01/02/20 15:08 AB [id number]) Orientation Orientation/Cognition Level of Alertness Alert Orientation Name,Place,Situation Safety Awareness Decreased Safety Awareness Gross Range of Motion Lower Extremity ROM Assessment Bilaterally Impaired Impairments increase bilateral LE tightness/rigidity Strength Lower Extremity Strength Assessment Bilaterally Impaired Hip 3+/5 Knee 3+/5 Ankle 3/5 Muscle Tone Muscle Tone WNL No Muscle Tone Location Bilateral Lower Extremity Type of Tone Hypertonicity,Rigidity Severity of Tone Mild M6 PT-IP Treatment Start: 01/02/20 14:46 Freq: Status: Active Protocol: Document 01/05/20 10:14 LALIT (Rec: 01/05/20 15:01 LJ [email or web address]) Physical Therapy Treatment Education Education Provided Safety M7 PT-IP Assessment and Plan Start: 01/02/20 14:46 Freq: Status: Active Protocol: Document 01/05/20 10:14 LJ (Rec: 01/05/20 15:01 LJ [email or web address]) PT Summary Assessment and Plan Potential Rehabilitation Potential Fair Status of Condition at Evaluation Evolving Summary Impairments Pain,ROM,Strength,Balance, Coordination,Sensation,Tone, Cognition,Gait,Activity Tolerance Assessment Summary Pt independent to SBA for mobility, transfers, and gait with FWW. He was able to maintain slightly reclined sitting position while a brief was placed on him in the sitting position on the bed. Pt able to maintain standing balance on LLE for several seconds while holding onto the FWW while he kicked off the brief from the right foot. No LOB. He was able to maintain sitting balance on side of bed and transfer x4 independently to SBA from bed and chair. Pt much improved in gait and most likely could have ambulated farther lhad his brief not fallen down. Goals Bed Mobility Goal Standby Assistance Transfer Goal Standby Assistance,Front Wheeled Walker Gait Goal Standby Assistance,Front Wheel Walker Gait Distance 200 Days to Meet Goals 10 Recommendations To Nursing Amount of Assist Needed 2 Person Assist Discharge Recommendations PT Discharge Recommendations Home,Home with Assistance,Home Health Transportation Needs at Discharge Wheelchair/Cabulance
[2020-01-05 15:49] VITALS: BP 128/63; PULSE 72; RESP 20; TEMP 36.7; O2SAT 95
--- NOTE | 2020-01-05 17:11 | OT.IP.EVAL ---
Past Medical History (Last Reviewed 01/05/20 @ 13:50 by HUGO Patel) Arthritis (Chronic) BPH (benign prostatic hyperplasia) (Chronic) Colon polyps (Resolved) Depression (Chronic) Hernia (Resolved) History of alcohol abuse (Resolved 1980) Hyperlipemia (Chronic) Hypertension (Chronic) Osteopenia (Chronic) Osteoporosis (Chronic) Shoulder pain (Resolved) Urinary retention (Resolved ~04/2017) Surgical History (Last Reviewed 01/05/20 @ 13:50 by HUGO Patel) History of cataract removal with insertion of prosthetic lens (02/2016) Hx of cystoscopy (Acute 04/2017) Hx of transurethral resection of prostate (Resolved 04/2017) Status post colectomy (2010) Status post hernia repair (05/2013) Occupational Therapy Inpatient Evaluation/Re-Eval M1 PT/OT-IP Prior Functional Status Start: 01/02/20 14:46 Freq: Status: Active Protocol: Document 01/02/20 14:50 AB (Rec: 01/02/20 15:08 AB [id number]) Medical Review Prior Functional Status Medical History Reviewed Yes Communication able to make needs known Mobility and Gait pt stated that he has not been able to do much to take care of himself these passed few days but prior to that was able to ambulate using either a FWW or a quad cane Social History Household Members none Number of Stairs To Enter/Railing? pt is homeless and sleeps on his car M1 PT/OT-IP Prior Functional Status Start: 01/05/20 16:50 Freq: NEEDED Status: Active Protocol: Document 01/05/20 16:51 [facility] (Rec: 01/05/20 17:08 [facility] [id number]) Medical Review Prior Functional Status Medical History Reviewed Yes Communication able to make needs known Mobility and Gait pt stated that he has not been able to do much to take care of himself these passed few days but prior to that was able to ambulate using either a FWW or a quad cane Activities of Daily Living and IADL's Pt states is incontinent and has to change his pull ups often. Social History Household Members none Living Arrangements Homeless Number of Stairs To Enter/Railing? pt is homeless and sleeps on his car M2 OT-IP Current Condition Start: 01/05/20 16:50 Freq: Status: Active Protocol: Document 01/05/20 16:51 [facility] (Rec: 01/05/20 17:08 [facility] [id number]) Occupational Therapy Current Condition Current Condition Evaluation Date 01/05/20 Treatment Diagnosis Chrocic debility, UTI, decreased mobilty Diagnosis Onset Date 01/04/20 Weight Bearing Status Weight Bearing Status Weight Bear as Tolerated M3 OT- IP Subjective and Pain Start: 01/05/20 16:50 Freq: Status: Active Protocol: Document 01/05/20 16:51 [facility] (Rec: 01/05/20 17:08 [facility] [id number]) OT- Subjective Occupational Therapy Visit Type Type Initial Evaluation Visit Start Time 15:55 Visit Stop Time 16:36 Total Visit Minutes 41 Occupational Therapy Visit Comments Patient Comments Pt in bed and not wanting to get up initially but agreeable to do cognitive assessment. Patient/Caregiver Goals To get better and not fluctuate with his mobility on a daily basis. OT Pain Assessment Pain When Pain Assessed At Rest Pain Present Pain Present Denied Pain M4 OT- IP ADL's Start: 01/05/20 16:50 Freq: Status: Active Protocol: Document 01/05/20 16:51 [facility] (Rec: 01/05/20 17:08 [facility] [id number]) OT ADE-Ywjb-Zwowdoh Comments OT Self-Feeding Comments Not at meal time. OT ADL-Grooming Comments OT Grooming Comments Pt able to stand at the sink to wash his hands. OT ADL-Oral Care Comments Oral Care Comments Pt refused. OT ADL-Dressing Comments OT Dressing Comments Pt able to bam brief on his own and with increased time on the toilet able to bam pull up brief on his own with increased time. OT ADL-Toileting General Evaluation Toileting Ability Standby Assistance Comments OT Toileting Comments Pt able to wipe however questionable completeness and not wanting therapist to assist. OT ADL-Bathing Comments OT Bathing Comments Pt insistent that he will shower tomorrow morning and not wanting to shower today and tomorrow. Pt states, I will just be fresher tomorrow. M5 OT- IP IADL's Start: 01/05/20 16:50 Freq: Status: Active Protocol: Document 01/05/20 16:51 [facility] (Rec: 01/05/20 17:08 [facility] [id number]) OT-Instrumental Activities of Daily Living Driving Driving Concerns Identified Regarding Safety M6 OT- IP Functional Cognition Start: 01/05/20 16:50 Freq: Status: Active Protocol: Document 01/05/20 16:51 [facility] (Rec: 01/05/20 17:08 [facility] [id number]) Cognitive Factors Limiting Selfcare Function Cognitive Ability Level of Alertness Alert,Confusional State Patient Orientation Name,Month,Year,Place, Situation Attention Span Ability Capable of Focused Attention, Capable of Sustained Attention Ability to Follow Commands Able to Follow One Step Commands Memory Description Short Term Impaired Safety Awareness Underestimates Need for Assistance Problem Solving Ability Needs Assist to Identify Solutions Executive Function Ability Unable to Make Plans,Unable to Organize Plans,Unable to Remember Details Cognitive Tests SLUMS Pt scored 15/30 , normal score for pt is 27/30 for pt's level of education. Pt score implies dementia. Unable to subtract two digit number, able to name 14 animal in 1 minute , able to recall1/5 objects after time passes, unable to draw clock correctly, unable to recognize a triangle and able to recall 2/4 answers after a paragraph read. Cognitive Comments Cognitive Assessment Comments Pt not staying on topic, decreased short term memory and safety awareness. Pt trying to walk without the FWW and mainly just trying to hold to objects in order to walk in the room. Not recommended that pt drive at this time. OT- Vision and Hearing OT- Vision Assessment Visual Acuity Glasses For Reading Vision Assessment Comments Pt able to read the clock correctly. M7 OT- IP Mobility and Balance Start: 01/05/20 16:50 Freq: Status: Active Protocol: Document 01/05/20 16:51 [facility] (Rec: 01/05/20 17:08 [facility] [id number]) OT- Bed Mobility Assessment Rolling Type of Rolling Roll to Left Supine to Sit Supine to Sit Assist Standby Assistance Sit to Supine Sit to Supine Assist Standby Assistance Scooting Scooting to Edge of Bed Standby Assistance OT-Transfer Assessment Sit to and From Stand Sit to and from Stand Standby Assistance Transfers Transfer Ability Standby Assistance,Contact Guard Assistance Technique Transfer Destination Bed,Toilet Devices Transfer Assistive Devices Gait Belt,Small Based Quad Cane,4 Wheeled Walker Comments Mobility Comments Pt very unsafe with quad cane and heavily leans to the left and needing CGA to PEDRO from loss of balance. With FWW was SBA. OT- Balance Assessment Sitting Balance and Reactions Static Sitting Balance Ability Fair Dynamic Sitting Balance Ability Fair Standing Balance and Reactions Static Standing Balance Ability Fair Dynamic Standing Balance Ability Poor Comments Other Balance Tests/Deviations/Treatment Pt tends to sit into posterior : lean and lateral tilt to the left when on the toilet. While standing with FWW pt tends to lean to the left as well. M8 OT- IP Objective Assessments Start: 01/05/20 16:50 Freq: Status: Active Protocol: Document 01/05/20 16:51 [facility] (Rec: 01/05/20 17:08 [facility] [id number]) OT Gross Range of Motion Upper Extremity Range of Motion Assessment Within Functional Limits OT Strength Comments Strength Comments BUE 4-/5 to 4/5 from proximal to distal. M9 OT- IP Assessment and Plan Start: 01/05/20 16:50 Freq: Status: Active Protocol: Document 01/05/20 16:51 [facility] (Rec: 01/05/20 17:08 [facility] [id number]) OT Summary Assessment and Plan Potential Rehabilitation Potential Fair Analytic Complexity at Evaluation Low Summary OT Impairments Functional Cognition, Functional Mobility,Dressing, Toileting,Bathing,Shower Transfers,Activity Tolerance Progress Towards Goals Slow Progress due to Activity Tolerance,Slow Progress due to Cognition Assessment Summary Pt low complexity and main barrier are decreased cognition, dynamic balance, and now needing use of FWW, as not safe to use quad cane during OT eval. Pt may benefit from skilled rehab pending coverage and assist, however pt is homeless and lives in his car. Goals Self-Feeding Goal Independent Grooming Goal Independent Dressing Goal Independent Toileting Goal Independent Bathing Goal Independent Toilet Transfer Goal Independent Shower Transfer Goal Independent Days to Meet Goals 5 Frequency of Treatment Frequency Of Treatment Once a Day Treatment Plan OT Treatment Plan ADL Training,Functional Cognition Training,Functional Mobility,Patient/Family Education,Discharge Planning Other Treatment Recommendations and Next Shower Treatment Focus Discharge Recommendations OT Discharge Recommendations Home,Home with Assistance,Home Health,SNF Rehab Transportation Needs at Discharge Private Vehicle
[2020-01-05 19:14] VITALS: BP 117/64; PULSE 76; RESP 20; TEMP 36.9; O2SAT 94
[2020-01-05] MEDS: ATORVASTATIN 20 MG TABLET 40 MG PO (21:28)
[2020-01-05] MEDS: TAMSULOSIN 0.4 MG CAPSULE PO (21:28)
[2020-01-06 00:25] VITALS: BP 110/58; PULSE 76; RESP 20; TEMP 37; O2SAT 95
[2020-01-06] MEDS: SODIUM CHLORIDE 0.9% FLUSH 10 ML IV ×2 (00:36→09:50)
[2020-01-06 04:00] VITALS: BP 131/71; PULSE 72; RESP 19; TEMP 37.6; O2SAT 96
--- NOTE | 2020-01-06 06:38 | PC.NURSE ---
Pt denied pain overnight. Pt offered sips of ensure with each q2hr turn. Pt incontinent of urine overnight, dribbles and not able to control stream. Pt up to shower with 2 person assist, gait belt, FWW. Pt weak and tremorous with ambu. Pt needed multiple cues to turn and pivot to shower chair. Pt scored 15/30 on SLUMS scale. Pt stated he plans on driving his car after discharge. Pt forgetful ie I have a window in my room? I need to turn because of my bottom?. Stage 2 open ulcer on right buttock. Size of pea. Surrounding area intact, no s/s infection. Applying copious barrier cream. Refused SCDs, education provided as to rationale for SCDs and risk of clot. On BID SubQ heparin. Order for palliative care conference. Personal items at bedside. Continue to encourage PO intake.
[2020-01-06 07:15] VITALS: BP 131/68; PULSE 73; RESP 20; TEMP 36.7; O2SAT 97
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
[2020-01-06] MEDS: HEPARIN 5,000 UNIT/ML VIAL 5000 UNIT SUBCUT (09:47)
[2020-01-06] MEDS: OXYBUTYNIN 5 MG TABLET 2.5 MG PO ×2 (09:47→14:41)
[2020-01-06] MEDS: ASPIRIN EC 81 MG TABLET PO (09:47)
[2020-01-06] MEDS: AMOXICILLIN 250 MG CAPSULE 1000 MG PO (09:50)
[2020-01-06] MEDS: LACTOBACILLUS ACIDOPHILUS TABLET 1 EACH PO (09:50)
[2020-01-06] MEDS: CARBIDOPA-LEVODOPA 25/100 TABLET 1 EACH PO ×2 (09:50→14:41)
[2020-01-06] MEDS: ACETAMINOPHEN 325 MG TABLET 650 MG PO (09:56)
[2020-01-06 11:35] VITALS: BP 128/71; PULSE 72; RESP 20; TEMP 36.9; O2SAT 97
--- NOTE | 2020-01-06 11:39 | PT.IPTN ---
Physical Therapy Treatment Note M2 PT-IP Current Condition Start: 01/02/20 14:46 Freq: Status: Active Protocol: Document 01/02/20 14:50 AB (Rec: 01/02/20 15:08 AB [id number]) Physical Therapy Current Condition Current Condition Evaluation Date 01/02/20 Treatment Diagnosis weakness; difficulty in walking Onset Date 01/02/2020 M3 PT-IP Subjective Start: 01/02/20 14:46 Freq: Status: Active Protocol: Document 01/06/20 11:39 AB (Rec: 01/06/20 12:36 AB [id number]) Subjective Physical Therapy Visit Type Type Treatment Note Visit Start Time 11:39 Visit Stop Time 12:02 Total Visit Minutes 23 Number of RETAIL AREA MANAGER Visits 0 Physical Therapy Visit Comments Patient Comments pt agreeable to ambulate M4 PT-IP Mobility and Gait Start: 01/02/20 14:46 Freq: Status: Active Protocol: Document 01/06/20 11:39 AB (Rec: 01/06/20 12:36 AB [id number]) PT-Bed Mobility Assessment Supine to Sit Supine to Sit Standby Assistance,Head of Bed Elevated PT-Transfer Assessment Sit to and From Stand Sit to and from Stand Standby Assistance,Contact Guard Assistance,1 Person Assistance Equipment Transfer Assistive Device None,Gait Belt,Small Based Quad Cane,Front Wheeled Walker Orthotic/Prosthetic Devices or Brace: No Transfers Transfer Destination Chair Comments Mobility Comments pt supine in bed and agreed to ambulate. completed supine to sit SBA. pt was able to sit on EOB SBA. completed sit to stand CGA with 2 attempts to complete. pt is impulsive and has cognitive issues affecting mobility and safety. pt completed ambulation using quad cane ~ 50 ft CGA to min A with cues on how to use the cane but pt continues to not use it and just carries it with him. ambulated without AD CGA to min A ~ 40 ft. presents with unsteady shuffling gait with increase posterior trunk leaning with occasiona min A to reposition and for safety. informed pt that FWW will be safer for him to use and agreed. ambulated ~ 50 ft using FWW SBA to CGA. presents with steadier gait but still with increase posterior trunk lean but without LOB. pt agreed to sit up on chair. positioned pt on chair. call light and table placed within reach. chair alarm on. Gait Assessment Gait Gait Assistance Required: Standby Assistance,Contact Guard Assist,Minimum Assistance Distance (Feet) 50 Able to Maintain Weight Bearing Status Yes During Gait Assistive Devices Assistive Device None,Gait Belt,Small Based Quad Cane,Front Wheeled Walker Gait Deviations General Gait Pattern Decreased Stride Length, Decreased Feet Clearance, Narrow Based Gait,Step-to Gait Factors Limiting Gait Function Factors Limiting Gait Function Decreased Activity Tolerance, Decreased Strength,Difficulty Following Directions,Limited Range of Motion,Poor Balance, Poor Safety Awareness Comments Gait Comments pls refer to mobility section for details M5 PT-IP Objective Assessments Start: 01/02/20 14:46 Freq: Status: Active Protocol: Document 01/02/20 14:50 AB (Rec: 01/02/20 15:08 AB [id number]) Orientation Orientation/Cognition Level of Alertness Alert Orientation Name,Place,Situation Safety Awareness Decreased Safety Awareness Gross Range of Motion Lower Extremity ROM Assessment Bilaterally Impaired Impairments increase bilateral LE tightness/rigidity Strength Lower Extremity Strength Assessment Bilaterally Impaired Hip 3+/5 Knee 3+/5 Ankle 3/5 Muscle Tone Muscle Tone WNL No Muscle Tone Location Bilateral Lower Extremity Type of Tone Hypertonicity,Rigidity Severity of Tone Mild M6 PT-IP Treatment Start: 01/02/20 14:46 Freq: Status: Active Protocol: Document 01/06/20 11:39 AB (Rec: 01/06/20 12:36 AB [id number]) Physical Therapy Treatment Education Education Provided Safety M7 PT-IP Assessment and Plan Start: 01/02/20 14:46 Freq: Status: Active Protocol: Document 01/06/20 11:39 AB (Rec: 01/06/20 12:36 AB [id number]) PT Summary Assessment and Plan Potential Rehabilitation Potential Fair Summary Impairments Pain,ROM,Strength,Balance, Coordination,Sensation,Tone, Cognition,Bed Mobility, Transfers,Gait,Activity Tolerance Progress Towards Goals Slow Progress - Other Assessment Summary pt requires CGA to min A with ambulation using a quad cane/ without AD. Recommending use of FWW for ambulation at this time and pt is aware. pt is homeless and lives in his car. pt will benefit from SNF rehab but due to placement issues, may have to d/c home. pt will benefit from outpt PT . Goals Bed Mobility Goal Standby Assistance Transfer Goal Standby Assistance,Front Wheeled Walker Gait Goal Standby Assistance,Front Wheel Walker Gait Distance 200 Days to Meet Goals 10 Frequency of Treatment Frequency Of Treatment Once a Day Treatment Plan Physical Therapy Treatment Plan Bed Mobility Training,Transfer Training,Gait Training, Therapeutic Exercise,Balance Retraining,Discharge Planning, Hot or Cold Pack,Neuromuscular Re-ed,Coordination Retraining ,Manual Therapy Recommendations To Nursing Amount of Assist Needed 1 Person Assist Discharge Recommendations PT Discharge Recommendations Home,Outpatient PT Transportation Needs at Discharge Private Vehicle
--- NOTE | 2020-01-06 11:59 | PC.NURSE ---
Addendum entered by Becka Suarez R.N. 01/06/20 15:43: Discharge summary reviewed with pt starting at 1430. Pt getting picked up at 1500 by [facility]. With review of discharge paperwork, pt would make sarcastic remarks and state that the remark was sarcastic. Pt would then start talking about non related topics. Needed to direct pt to topic at hand, stressed importance of personal hygiene, cleaning himself well after urine or BM inc prior to putting on barrier cream. Hygiene to prevent skin breakdown leading to infection risk. Encouraged use of using walker, pt states he has one in his truck, his cane was given back upon discharge. Upon leaving room via wheelchair, pt states, what if my walker is not in my truck, my doors are unlocked and what if someone took it. Pt had previously stated it was in his truck. This designer/writer stated he can get from [employer], [employer], [employer] if needing one and have a friend drive him to a place. Pt left unit with all belongings at 1520 via wheelchair with LEAD DATABASE ADMINISTRATOR and float RN, reported pt was placed safely into [facility]. 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 Original Note: Day Shift- Pt alert sitting in recliner chair with chair alarm on. Oriented X4, states date as or 14 of January. Call light within reach and pt able to use indep. Pt has BUE tremor, more so to hands. Able to feed himself. Denied pain, discomfort, SOB, states has SOB at times when not in hospital if he is walking longer distances. Pt has moist intermittent cough with no sputum production. Right buttock has a very small spot of redness where skin not intact, barrier cream applied, pt wearing brief for fecal and urinary incontinence. Pt out of chair, ambulated in marie with PT then settled back into chair with chair alarm on. Call light within reach.
--- NOTE | 2020-01-06 14:36 | OT.IP.TRT ---
Occupational Therapy Treatment Note M2 OT-IP Current Condition Start: 01/05/20 16:50 Freq: Status: Active Protocol: Document 01/05/20 16:51 CCC (Rec: 01/05/20 17:08 CCC [id number]) Occupational Therapy Current Condition Current Condition Evaluation Date 01/05/20 Treatment Diagnosis Chrocic debility, UTI, decreased mobilty Diagnosis Onset Date 01/04/20 Weight Bearing Status Weight Bearing Status Weight Bear as Tolerated M3 OT- IP Subjective and Pain Start: 01/05/20 16:50 Freq: Status: Active Protocol: Document 01/06/20 15:03 CGR (Rec: 01/06/20 15:26 CGR [id number]) OT- Subjective Occupational Therapy Visit Type Type Treatment Note Visit Start Time 14:15 Visit Stop Time 14:36 Total Visit Minutes 21 Notes Pt getting ready for discharge . Occupational Therapy Visit Comments Patient Comments I will never be steady. OT Pain Assessment Pain When Pain Assessed At Rest Pain Present Pain Present Denied Pain M4 OT- IP ADL's Start: 01/05/20 16:50 Freq: Status: Active Protocol: Document 01/06/20 15:03 CGR (Rec: 01/06/20 15:26 CGR [id number]) OT [id number] Comments OT Self-Feeding Comments Not meal time OT ADL-Grooming Comments OT Grooming Comments Pt declined, states performed ~1 hour ago. OT ADL-Oral Care Comments Oral Care Comments Pt declined, states performed ~1 hour ago. OT ADL-Dressing General Eval Upper Body Dressing Ability Independent Lower Body Dressing Ability Minimal Assistance Areas Needing Assistance Pull-Over Shirt,Underpants/ Brief,Pants/Shorts Comments OT Dressing Comments Pt donned clothing with min a for LB dressing. OT ADL-Toileting General Evaluation Toileting Ability Contact Guard Assistance Areas Needing Assistance Perform Perineal Hygiene Comments OT Toileting Comments Pt soiled when OT entered. Pt able to perform pericare with set up and CGA for standing balance. OT ADL-Bathing Comments OT Bathing Comments Not performed in this session. M5 OT- IP IADL's Start: 01/05/20 16:50 Freq: Status: Active Protocol: Document 01/05/20 16:51 CCC (Rec: 01/05/20 17:08 CCC [email or web address]) OT-Instrumental Activities of Daily Living Driving Driving Concerns Identified Regarding Safety M6 OT- IP Functional Cognition Start: 01/05/20 16:50 Freq: Status: Active Protocol: Document 01/05/20 16:51 CCC (Rec: 01/05/20 17:08 [facility] [id number]) Cognitive Factors Limiting Selfcare Function Cognitive Ability Level of Alertness Alert,Confusional State Patient Orientation Name,Month,Year,Place, Situation Attention Span Ability Capable of Focused Attention, Capable of Sustained Attention Ability to Follow Commands Able to Follow One Step Commands Memory Description Short Term Impaired Safety Awareness Underestimates Need for Assistance Problem Solving Ability Needs Assist to Identify Solutions Executive Function Ability Unable to Make Plans,Unable to Organize Plans,Unable to Remember Details Cognitive Tests SLUMS Pt scored 15/30 , normal score for pt is 27/30 for pt's level of education. Pt score implies dementia. Unable to subract two digit number, able to name 14 animal in 1 minute , able to recall1/5 objects after time passes, unable to draw clock correctly, unable to recognize a triangle and able to recall 2/4 answers after a paragraph read. Cognitive Comments Cognitive Assessment Comments Pt not staying on topic, decreased short term cristal and safety awareness. Pt trying to walk without the FWW and mainly just trying to hold to objects in order to walk in the room. Not recommended that pt drive at this time. OT- Vision and Hearing OT- Vision Assessment Visual Acuity Glasses For Reading Vision Assessment Comments Pt able to read the clock correctly. M7 OT- IP Mobility and Balance Start: 01/05/20 16:50 Freq: Status: Active Protocol: Document 01/06/20 15:03 CGR (Rec: 01/06/20 15:26 CGR [email or web address]) OT-Transfer Assessment Sit to and From Stand Sit to and from Stand Contact Guard Assistance Transfers Transfer Ability Minimal Assistance Technique Transfer Destination Chair Transfer Technique Stand Step Pivot Devices Transfer Assistive Devices Gait Belt,Front Wheeled Walker Comments Mobility Comments Pt with posterior lean and limited use of walker even with max verbal cues. Pt has poor safety with mobility. OT- Balance Assessment Sitting Balance and Reactions Static Sitting Balance Ability Good Dynamic Sitting Balance Ability Fair Standing Balance and Reactions Static Standing Balance Ability Fair Dynamic Standing Balance Ability Poor M8 OT- IP Objective Assessments Start: 01/05/20 16:50 Freq: Status: Active Protocol: Document 01/05/20 16:51 [facility] (Rec: 01/05/20 17:08 [facility] [id number]) OT Gross Range of Motion Upper Extremity Range of Motion Assessment Within Functional Limits OT Strength Comments Strength Comments BUE 4-/5 to 4/5 from proximal to distal. M9 OT- IP Assessment and Plan Start: 01/05/20 16:50 Freq: Status: Active Protocol: Document 01/06/20 15:03 CGR (Rec: 01/06/20 15:26 CGR [email or web address]) OT Summary Assessment and Plan Potential Rehabilitation Potential Fair Analytic Complexity at Evaluation Low Summary OT Impairments Functional Cognition, Functional Mobility,Dressing, Toileting,Bathing,Shower Transfers,Activity Tolerance Progress Towards Goals Slow Progress due to Activity Tolerance,Slow Progress due to Cognition Assessment Summary Pt low complexity and main barrier are decreased cognition, dynamic balance, and now needing use of FWW, as not safe to use quad cane during OT eval. Pt may benefit from skilled rehab pending coverage and assist, however pt is homeless and lives in his car. Goals Self-Feeding Goal Independent Grooming Goal Independent Dressing Goal Independent Toileting Goal Independent Bathing Goal Independent Toilet Transfer Goal Independent Shower Transfer Goal Independent Days to Meet Goals 4 Frequency of Treatment Frequency Of Treatment Once a Day Treatment Plan OT Treatment Plan ADL Training,Functional Cognition Training,Functional Mobility,Patient/Family Education,Discharge Planning Discharge Recommendations OT Discharge Recommendations Home,Home with Assistance,Home Health,SNF Rehab Transportation Needs at Discharge Private Vehicle
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
--- NOTE | 2020-01-06 15:52 | CM.DPNOTE ---
DC Note: Dr Stonere has DC pt home today because he does not meet medical criteria to be in the hospital and he is functionally capable of returning to his truck. Pt discussed in multidisciplinary rounds this morning and staff all agree, pt can safely leave the hospital today w/continuation of placement efforts through the state office and resources offered. This NUCLEAR MEDICINE CHIEF TECHNOLOGIST met w/pt w/ Dr Hubbard this morning to discuss DC then returned alone w/ pt this afternoon, pt sitting upright in his chair both times. This NUCLEAR MEDICINE CHIEF TECHNOLOGIST arranged medicaid transport for pt through [employer] and [facility] was secured to transport pt p/u at 1500. Placed call to pt's friend Jean-Claude Johnson P#[phone], he answered, occupational health professional was poor, he explained he was currently in [place], [place]. This NUCLEAR MEDICINE CHIEF TECHNOLOGIST asked if there are resources through the [employer] that could assist pt today? Jean-Claude explained he was the resource and the only person that was willing or able to assist pt for the last 6 years. Jean-Claude suggested a taoism elder, Lorenzo, to be made aware of pt's DC but this NUCLEAR MEDICINE CHIEF TECHNOLOGIST and Jean-Claude were disconnected at this time, did not get Lorenzo's number. Met w/pt and reviewed transport time; had lengthy conversation w/pt about his DC today and reviewed need for additional resources, pt is A+O throughout our conversation but short term memory loss noted, pt has a difficult time having a goal directed conversation about his needs; he focuses on the ways things have gone wrong and wrong doing against him. Pt able to communicate about his routine and plans once discharged and denies further needs or resources from this NUCLEAR MEDICINE CHIEF TECHNOLOGIST, reviewed the following: -Access to food; pt admits to approx $500 that has accumulated on his food stamps card, pt receives monthly SSI that he uses to eat meals at local food establishments that have restrooms, pt remembers the visit from the explosives truck driver but cannot remember the suggestions today, pt says he has been making himself bologna sandwiches for years -Longterm; pt does not want to go outside of [place] and understands barriers to motel voucher program. 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 This NUCLEAR MEDICINE CHIEF TECHNOLOGIST unsure why. Strongly encouraged pt to ask his taoism community to assist in transport to [facility] to utilize public showers, also strongly encouraged pt not to leave stool on his body which puts him at increased risk of infection, pt agrees and states he has and uses baby wipes Reviewed above with Dr Hubbard. Pt DC home today on po abx This NUCLEAR MEDICINE CHIEF TECHNOLOGIST unable to LM for Yanick Manley [facility] today to update and unable to contact Sister Sonia to update, pt gave permission to do so but this NUCLEAR MEDICINE CHIEF TECHNOLOGIST unable to accommodate d/t caseload demands. CM Sup Leslye sinclair. Jeaneth Tripp, NUCLEAR MEDICINE CHIEF TECHNOLOGIST
--- NOTE | 2020-01-08 11:57 | CM.DPC ---
Spoke to sister Sonia (received patient's approval to talk with her last week) to let her know about her brother's discharge and ask her if there is any news from the facilities near her. She states, They want the financial paperwork sent to them - the madicaid forms and such then they'll let us know. I don't have access to any of that and I wasn't driving to [employer] to get him to fill it out but if you all want to do that you can. At present patient is not at so am not sure his thoughts abouth moving to [place]. I called Yanick Vineet to provide him with an update about the patient's discharge but he was not in the office today. I left my name and office number for him to return my call. I also let him know about [facility] facility in [place] that was - per Sonia - open to accepting him if the money piece could be worked out. Phone number for the facility left on Yanick's voicemail for him to see what - if anything- can be worked out.
== END 2020-01-06 15:20 | disposition home or self-care (01) ==
LOC: ED 01-04 07:08 → AC 01-04 09:57
PROVIDERS: Nurse Practitioner Family; Admitting Provider Internal Medicine; Emergency Provider Emergency Medicine; PCP Physician Assistant; Referring Provider Emergency Medicine; Visit Provider Internal Medicine
DX: R62.7 Adult failure to thrive (principal); R53.1 Weakness; R53.81 Other malaise; R15.9 Full incontinence of feces; E86.0 Dehydration; N39.0 Urinary tract infection, site not specified; L89.312 Pressure ulcer of right buttock, stage 2; E78.5 Hyperlipidemia, unspecified; I10 Essential (primary) hypertension; N40.1 Benign prostatic hyperplasia with lower urinary tract symptoms; N39.498 Other specified urinary incontinence; Z59.0 Homelessness; E43 Unspecified severe protein-calorie malnutrition
CPT/HCPCS: 36415; 71045; 80048; 80053; 81001; 82550; 82607; 83036; 84145; 84443; 85025; 87077; 87086; 87185; 87186; 87507; 96360; 96361; 96372; 97116; 97162; 97165; 97530; 97535; 99284; G0378; J1644

== ENCOUNTER 2020-01-07 07:50 | Emergency (ER) | payer MEDICARE, MEDICAID, SELFPAY ==
[2020-01-04 14:19] VITALS: BMI 20.9
[2020-01-07 07:53] VITALS: BP 116/66; PULSE 87; RESP 16; TEMP 36.4; O2SAT 95
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
--- NOTE | 2020-01-07 10:28 | PC.NURSE ---
Taxi states they cannot take this pt. Call to [employer] and after some discussion they can take pt. Gauri came, got pt in her car and is taking him [facility] the [facility]. I provided pt with some snacks. Pt states I will see you later tonight. Once again informed pt to call PCP and his states social work assistant.
== END 2020-01-07 10:20 | disposition home or self-care (01) ==
PROVIDERS: Emergency Provider Emergency Medicine; PCP Physician Assistant
DX: R53.1 Weakness (principal); S09.8XXA Other specified injuries of head, initial encounter; W19.XXXA Unspecified fall, initial encounter
CPT/HCPCS: 70450; 99281; 99284

== ENCOUNTER 2020-01-16 05:25 | Emergency (ER) | payer MEDICARE, MEDICAID, SELFPAY ==
[2020-01-04 14:19] VITALS: BMI 20.9
[2020-01-16 05:38] VITALS: BP 113/65; PULSE 93; RESP 18; TEMP 36.6; O2SAT 95
--- NOTE | 2020-01-16 06:00 | PC.NURSE ---
Veronika Butt and Jhonatan assisted patient to bathroom to take a shower. patient bathed from head to toe. patient brushed his teeth and after getting the patient to the stretcher we placed a clean brief and some barrier cream on the patients bottom. patient tolerated well.
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
[2020-01-16 06:56] LABS: Add Manual Diff / Slide Review NO; Basophils Absolute Auto 100 /uL (0-100); Basophils Percent Auto 0.4 % (0-2); Eosinophils Absolute Auto 0 /uL (0-450); Eosinophils Percent Auto 0.1 % (2-4); Hematocrit 41.6 % (41-53); Hemoglobin 13.9 g/dL (13.5-17.5); Lymphocytes Absolute Auto 1300 /uL (1100-4500); Lymphocytes Percent Auto 8.6 % (25-40); Mean Corpuscular HGB Conc 33.4 % (30-36); Mean Corpuscular Hemoglobin 30.3 PG (26-34); Mean Corpuscular Volume 90.6 fL (80-100); Monocytes Absolute Auto 900 /uL (0-900); Monocytes Percent Auto 5.8 % (3-14); Neutrophils Absolute Auto 12700 /uL (1500-7000); Neutrophils Percent Auto 85.1 % (50-75); Platelet Count 339 X10^3/uL (150-400); Red Blood Cell Count 4.59 X10^6/uL (4.5-5.9); Red Cell Distribution Width 14.2 % (11.6-14.8); White Blood Cell Count 14.9 X10^3/uL (4.5-11.0)
[2020-01-16 07:01] LABS: Alanine Aminotransferase 16 IU/L (<50); Albumin 3.7 g/dL (3.5-5.0); Albumin Globulin Ratio 1.1 (1.0-2.8); Alkaline Phosphatase 95 U/L (38-126); Aspartate Aminotransferase 28 IU/L (17-59); BUN Creatinine Ratio 23.8 (6-22); Bilirubin Total 0.7 mg/dL (0.2-1.3); Blood Urea Nitrogen 19 mg/dL (9-20); Calcium 9.2 mg/dL (8.4-10.2); Carbon Dioxide 21 mmol/L (22-32); Chloride 112 mmol/L (98-107); Estimated Glomerular Filt Rate > 60.0 mL/min (>60); Globulin 3.5 g/dL (1.7-4.1); Glucose 94 mg/dL (80-110); HEMOLYSIS 15 (0-50); Potassium 3.7 mmol/L (3.4-5.1); Sodium 143 mmol/L (137-145); Total Protein 7.2 g/dL (6.3-8.2)
--- NOTE | 2020-01-16 07:12 | DI.CT.S_ITS ---
PROCEDURE: CT HEAD/BRAIN WO CON INDICATIONS: fall, hit head TECHNIQUE: Noncontrast 4.5 mm thick angled axial sections acquired from the foramen magnum to the vertex, with coronal and sagittal reformats. For radiation dose reduction, the following was used: automated exposure control, adjustment of mA and/or kV according to patient size. COMPARISON: [facility], CT, CT HEAD/BRAIN WO CON, 01/07/2020, 8:14. [facility], CT, CT HEAD/BRAIN WO CON, 11/16/2019, 12:53. [facility], CT, CT HEAD/BRAIN WO CON, 11/07/2019, 13:35. [facility], CT, CT HEAD/BRAIN WO CON, 09/30/2019, 8:32. [facility], CT, CT HEAD/BRAIN WO CON, 08/11/2019, 15:32. FINDINGS: Image quality: Limited by patient motion artifact. CSF spaces: Basal cisterns are patent. No extra-axial fluid collections. The ventricles are symmetric in size and shape. Brain: No intracranial bleeds or masses. There is cerebral volume loss for age, with resultant ventricular and sulcal prominence. There are periventricular and deep white matter chronic small vessel ischemic changes. There is intracranial internal carotid artery atherosclerosis. Skull and face: Calvarium and visualized facial bones appear intact, without suspicious lesions. Sinuses: Visualized sinuses and mastoids are clear. IMPRESSION: No acute intracranial disease process within limitations related to motion artifact. Dictated by: Tiffany Inman MD, PhD on 01/16/2020 at 7:57 Approved by: Tiffany Inman MD, PhD on 01/16/2020 at 8:00
[2020-01-16 07:17] LABS: Procalcitonin < 0.05 ng/mL (<0.5)
--- NOTE | 2020-01-16 09:19 | CM.DPC ---
Called Yanick Bowie RN fabric worker for the [facility] who is following this patient. I left a voice mail explaining that the patient was in the ED - not meeting criteria for admission into the hospital but wondering if there was any new information about an adult family home for the patient, or asking if there was anything we can do to facilitate the process. Yanick's voice mail had stated he would not be in today. I then called his supervisor reactor fueling- Taisha at [phone] - whose voicemail stated she will not be in today either, but is checking messages routinely, so I left an identical message.
[2020-01-16 09:25] VITALS: BP 126/80; PULSE 89; RESP 17; O2SAT 96
[2020-01-16 11:47] VITALS: BP 138/55; PULSE 86; RESP 18; O2SAT 96
--- NOTE | 2020-01-16 11:50 | CM.DPC ---
Spoke with Dr. Frances's RN at [facility] and was informed that Dr. Frances's last day at [facility] was 01/[address] Vasquez or Dr. Durán will likely be taking over the care of this patient. Updated RN about the patient's most recent December visits as well as my unsuccessful attempts today to reach the state for an update about their progress finding him an AF.
[2020-01-16 14:20] VITALS: BP 121/69; PULSE 83; RESP 18; O2SAT 99
--- NOTE | 2020-01-16 14:35 | PC.NURSE ---
No shelters available for patient. Contacted medicare transport, Pt agreeable with going back to truck he uses as a home with a walker. Pt has demonstrated ability to use walker independently.
== END 2020-01-16 14:37 | disposition home or self-care (01) ==
PROVIDERS: Emergency Medicine; Emergency Provider Emergency Medicine; PCP Physician Assistant
DX: S09.90XA Unspecified injury of head, initial encounter (principal); W19.XXXA Unspecified fall, initial encounter
CPT/HCPCS: 36415; 70450; 80053; 84145; 85025; 99283; 99284

== ENCOUNTER 2020-01-22 08:37 | Inpatient (IN) | payer MEDICARE, MEDICAID, SELFPAY ==
[2020-01-04 14:19] VITALS: BMI 20.9
[2020-01-22] VITALS (8 sets, daily range): BP systolic 104–132; BP diastolic 60–77; PULSE 89–101; RESP 14–28; TEMP 36.4–37.1; O2SAT 93–98; BMI 18.1
--- NOTE | 2020-01-22 08:43 | ED.GENADULT ---
HPI - General Adult General Chief complaint: Environmental Exposure Stated complaint: Cold Time Seen by Provider: 01/22/20 08:40 Source: patient, EMS and old records reviewed Mode of arrival: EMS Limitations: no limitations History of Present Illness HPI narrative: This is a 73-year-old male who contacted EMS because he was cold. He is homeless lives in his vehicle he has chronic urinary incontinence as well as other medical issues. Patient did feel cold to the touch. On exam he has no other current complaints. He does have what appears to be a new ulceration on his left hip. He has chronic the cubes on his buttocks although they look improved from prior. Patient is denying any other issues at this time. Related Data Home Medications Medication Instructions Recorded Confirmed carbidopa-levodopa 1 tab PO TID 01/02/20 01/22/20 oxybutynin chloride 2.5 mg PO TID 01/02/20 01/22/20 Previous Rx's Medication Instructions Recorded Adult Diapers #30 each 08/10/18 DISABLED PARKING PLACARD #1 ea 09/27/18 ergocalciferol (vitamin D2) 1,250 50,000 unit PO QWEEK #4 cap 06/28/19 mcg (50,000 unit) capsule atorvastatin 40 mg tablet 40 mg PO BEDTIME #90 tab 11/07/19 tamsulosin 0.4 mg capsule 0.4 mg PO BEDTIME #90 cap 11/07/19 aspirin 81 mg PO DAILY #30 tab 01/06/20 ciprofloxacin HCl 500 mg PO BID #20 tab 01/22/20 Allergies Allergy/AdvReac Type Severity Reaction Status Date / Time No Known Drug Allergies Allergy Verified 11/16/19 12:22 Review of Systems Review of Systems ROS Unobtainable: All systems reviewed & are unremarkable except as noted in HPI and below Patient History Social History household members: none Smoking Status: Never smoker second hand exposure: No alcohol intake: former substance use type: does not use Smoking Status: Never smoker alcohol intake frequency: 0-2 drinks per day Substance Use Type: does not use Exam Narrative Exam Narrative: GEN: Elderly male, alert and oriented, patient appears to be in mild distress. Patient is mildly cool to touch. Mumbles. HEENT: Atraumatic, pupils are equal round reactive to light, extraocular movements are intact, nares are clear, throat is clear without any exudates, erythema, tonsillar enlargement or uvular deviation, no facial droop. HEART: Regular rate and rhythm without murmur, clicks, rubs. Pulses are equal in upper and lower extremities LUNGS:Lungs clear to auscultation, no wheezes, rales, crackles, chest moves symmetrically ABD:bowel sounds normal, soft, non-tender, no guarding, rebound, rigidity, no masses noted, no hepatosplenomegaly :No CVA tenderness, patient has a sacral decubitus on the right buttock which appears to be healing. Patient's left hip has skin breakdown through the superficial layer, no subcutaneous tissues involved. It is approximately 5 x 2 cm area. There is some erythema in the surrounding area. No purulent discharge. Some mild active bleeding. MSCL: Non-tender, generalized atrophy. NEURO:CN 2-12 intact, sensation normal. SKIN: Patient has multiple excoriations on his buttocks and lower extremities in size. Initial Vital Signs Initial Vital Signs: Vital Signs Temperature 97.7 F 01/22/20 08:51 Pulse Rate 98 H 01/22/20 08:51 Respiratory Rate 14 01/22/20 08:51 Blood Pressure 132/63 01/22/20 08:51 Pulse Oximetry 96 01/22/20 08:51 Scores GCS Genaro coma scale eye opening: Spontaneous Genaro coma scale verbal response: Confused Genaro coma scale motor response: Obey commands [place] coma scale total score: 14 Course Orders Ordered: ED Orders 01/22/20 10:05 Complete Blood Count AUTO DIFF Stat Comprehensive Metabolic Panel Stat Procalcitonin Stat Thyroid Stimulating Hormone Stat 01/22/20 11:02 Blood Culture Stat Lactate (Lactic Acid) Stat 01/22/20 13:18 Consult to CABLE INSTALLER - Insurance Claims Processor Stat Consult to Occupational Therapy Evaluate & Treat Consult to Physical Therapy Evaluate & Treat 01/22/20 14:47 Urinalysis and Microscopic Stat Discontinued Medications Ciprofloxacin (Cipro) 500 mg PO NOW ONE Stop: 01/22/20 12:29 Last Admin: 01/22/20 13:30 Dose: Not Given Documented by: TEODORA Sodium Chloride (Normal Saline 0.45%) 1,000 mls @ 1,000 mls/hr IV BOLUS ONE Stop: 01/22/20 18:07 Last Admin: 01/22/20 17:50 Dose: 1,000 mls/hr Documented by: CHRISTOS Vital Signs Vital signs: Vital Signs - 8 hr 01/22/20 11:23 01/22/20 12:00 01/22/20 13:17 Pulse Rate 101 H 100 H 89 Respiratory Rate 19 26 H 18 Blood Pressure [Left Arm] 121/76 110/75 117/69 Pulse Oximetry 95 96 98 Medical Decision Making Lab Data Lab results reviewed: Yes I reviewed the patient's lab results. Result diagrams: 01/22/20 10:05 01/22/20 10:05 Labs: Lab Results 01/22/20 01/22/20 01/22/20 Range/Units 10:05 10:05 10:05 WBC 17.7 H (4.5-11.0) X10^3/uL RBC 5.43 (4.5-5.9) X10^6/uL Hgb 16.5 (13.5-17.5) g/dL Hct 49.2 (41-53) % MCV 90.7 (80-100) fL MCH 30.4 (26-34) PG MCHC 33.5 (30-36) % RDW 14.5 (11.6-14.8) % Plt Count 393 (150-400) X10^3/uL Neut % (Auto) 84.7 H (50-75) % Lymph % (Auto) 6.9 L (25-40) % Hendricks % (Auto) 8.2 (3-14) % Eos % (Auto) 0.0 L (2-4) % Baso % (Auto) 0.2 (0-2) % Neut # (Auto) 11005 H (1353-0576) /uL Lymph # (Auto) 1200 (4549-9248) /uL Hendricks # (Auto) 1500 H (0-900) /uL Eos # (Auto) 0 (0-450) /uL Baso # (Auto) 0 (0-100) /uL Sodium 158 H D (137-145) mmol/L Potassium 3.3 L (3.4-5.1) mmol/L Chloride 122 H* (98-107) mmol/L Carbon Dioxide 20 L (22-32) mmol/L BUN 38 H (9-20) mg/dL Creatinine 1.00 (0.66-1.25) mg/dL Estimated GFR > 60.0 (>60) mL/min BUN/Creatinine Ratio 38.0 H (6-22) Glucose 118 H (80-110) mg/dL Lactate (0.7-2.1) mmol/L Calcium 10.3 H (8.4-10.2) mg/dL Total Bilirubin 0.8 (0.2-1.3) mg/dL AST 172 H (17-59) IU/L ALT 79 H (<50) IU/L Alkaline Phosphatase 106 (38-126) U/L Total Protein 8.0 (6.3-8.2) g/dL Albumin 4.1 (3.5-5.0) g/dL Globulin 3.9 (1.7-4.1) g/dL Albumin/Globulin Ratio 1.1 (1.0-2.8) Procalcitonin (<0.5) ng/mL TSH 0.63 (0.47-4.68) uIU/mL 01/22/20 01/22/20 Range/Units 10:05 11:02 WBC (4.5-11.0) X10^3/uL RBC (4.5-5.9) X10^6/uL Hgb (13.5-17.5) g/dL Hct (41-53) % MCV (80-100) fL MCH (26-34) PG MCHC (30-36) % RDW (11.6-14.8) % Plt Count (150-400) X10^3/uL Neut % (Auto) (50-75) % Lymph % (Auto) (25-40) % Hendricks % (Auto) (3-14) % Eos % (Auto) (2-4) % Baso % (Auto) (0-2) % Neut # (Auto) (4933-1858) /uL Lymph # (Auto) (6254-4763) /uL Hendricks # (Auto) (0-900) /uL Eos # (Auto) (0-450) /uL Baso # (Auto) (0-100) /uL Sodium (137-145) mmol/L Potassium (3.4-5.1) mmol/L Chloride (98-107) mmol/L Carbon Dioxide (22-32) mmol/L BUN (9-20) mg/dL Creatinine (0.66-1.25) mg/dL Estimated GFR (>60) mL/min BUN/Creatinine Ratio (6-22) Glucose (80-110) mg/dL Lactate 1.9 (0.7-2.1) mmol/L Calcium (8.4-10.2) mg/dL Total Bilirubin (0.2-1.3) mg/dL AST (17-59) IU/L ALT (<50) IU/L Alkaline Phosphatase (38-126) U/L Total Protein (6.3-8.2) g/dL Albumin (3.5-5.0) g/dL Globulin (1.7-4.1) g/dL Albumin/Globulin Ratio (1.0-2.8) Procalcitonin 0.13 (<0.5) ng/mL TSH (0.47-4.68) uIU/mL Imaging Data left hip xray: Radiologist's Impression: [address] [address] XRay Report Signed Patient: Dion Suresh LMR#: [id number] : 7Acct:[id number] Age/Sex: 75 / MDate of Service: 01/22/20 Loc: ED Accession Number: [id number] Procedure: XR hip w pel if done LT 2V Ordering Provider: Kat Pettit D.O. PROCEDURE: XR HIP W PEL IF DONE LT 2V INDICATIONS: ulcer left hip TECHNIQUE: AP pelvis with lateral view(s) of the left hip(s). COMPARISON: None. FINDINGS: Bones: No fractures or dislocations. Pelvic ring appears intact. No suspicious bony lesions. Bilateral varus deformity. Bilateral degenerative arthritis of the hips, left greater than right, relatively mild. No plain film evidence of osteomyelitis. Soft tissues: The visualized bowel gas pattern is normal. No suspicious soft tissue calcifications. IMPRESSION: No plain film evidence of osteomyelitis. Comment: Suspect osteomyelitis, consider pelvic MRI with and without contrast. Dictated by: Jae Zapata M.D. on 01/22/2020 at 9:22 Approved by: Jae Zapata M.D. on 01/22/2020 at 9:23 [facility] Narrative Medical decision making narrative: Patient comes in with new D cube, elevating white count afebrile. He has some cellulitis with infected hip ulcer likely. He was able to give a urine but has an old urine which has been untreated for UTI. Patient was able to ambulate with PT. Patient also hyper no tree make and hyperchloremic, spoke with Dr. Hubbard who kindly accepts and feels patient likely has free water deficit which she calculated 2 L and we started half normal saline. Patient also had social work contacted who contacted his states social scientist. Patient was started on Cipro orally initially as we were attempting to discharge but then realized he was not able to ambulate safely. Discharge Plan Departure Patient Disposition: Admitted As Inpatient Clinical Impression: Decubitus ulcer of hip, Cold exposure, Cellulitis Discharge Date/Time: 01/22/20 17:46 Admit Date/Time: 01/22/20 17:16 Admit Provider: Annie Hubbard
--- NOTE | 2020-01-22 08:51 | DI.RAD.S_ITS ---
PROCEDURE: XR HIP W PEL IF DONE LT 2V INDICATIONS: ulcer left hip TECHNIQUE: AP pelvis with lateral view(s) of the left hip(s). COMPARISON: None. FINDINGS: Bones: No fractures or dislocations. Pelvic ring appears intact. No suspicious bony lesions. Bilateral varus deformity. Bilateral degenerative arthritis of the hips, left greater than right, relatively mild. No plain film evidence of osteomyelitis. Soft tissues: The visualized bowel gas pattern is normal. No suspicious soft tissue calcifications. IMPRESSION: No plain film evidence of osteomyelitis. Comment: Suspect osteomyelitis, consider pelvic MRI with and without contrast. Dictated by: Jae Zapata M.D. on 01/22/2020 at 9:22 Approved by: Jae Zapata M.D. on 01/22/2020 at 9:23
[2020-01-22 10:33] LABS: Add Manual Diff / Slide Review NO; Basophils Absolute Auto 0 /uL (0-100); Basophils Percent Auto 0.2 % (0-2); Eosinophils Absolute Auto 0 /uL (0-450); Hematocrit 49.2 % (41-53); Hemoglobin 16.5 g/dL (13.5-17.5); Lymphocytes Absolute Auto 1200 /uL (1100-4500); Lymphocytes Percent Auto 6.9 % (25-40); Mean Corpuscular HGB Conc 33.5 % (30-36); Mean Corpuscular Hemoglobin 30.4 PG (26-34); Mean Corpuscular Volume 90.7 fL (80-100); Monocytes Absolute Auto 1500 /uL (0-900); Monocytes Percent Auto 8.2 % (3-14); Neutrophils Absolute Auto 15000 /uL (1500-7000); Neutrophils Percent Auto 84.7 % (50-75); Platelet Count 393 X10^3/uL (150-400); Red Blood Cell Count 5.43 X10^6/uL (4.5-5.9); Red Cell Distribution Width 14.5 % (11.6-14.8); White Blood Cell Count 17.7 X10^3/uL (4.5-11.0)
[2020-01-22 10:45] LABS: Alanine Aminotransferase 79 IU/L (<50); Albumin 4.1 g/dL (3.5-5.0); Albumin Globulin Ratio 1.1 (1.0-2.8); Alkaline Phosphatase 106 U/L (38-126); Aspartate Aminotransferase 172 IU/L (17-59); Bilirubin Total 0.8 mg/dL (0.2-1.3); Blood Urea Nitrogen 38 mg/dL (9-20); Calcium 10.3 mg/dL (8.4-10.2); Carbon Dioxide 20 mmol/L (22-32); Estimated Glomerular Filt Rate > 60.0 mL/min (>60); Globulin 3.9 g/dL (1.7-4.1); Glucose 118 mg/dL (80-110); HEMOLYSIS < 15 (0-50); Potassium 3.3 mmol/L (3.4-5.1); Sodium 158 mmol/L (137-145)
[2020-01-22 11:01] LABS: Chloride 122 mmol/L (98-107)
[2020-01-22 11:06] LABS: Procalcitonin 0.13 ng/mL (<0.5)
[2020-01-22 11:16] LABS: Thyroid Stimulating Hormone 0.63 uIU/mL (0.47-4.68)
[2020-01-22 11:27] LABS: Lactate (Lactic Acid) 1.9 mmol/L (0.7-2.1)
--- NOTE | 2020-01-22 13:22 | PC.NURSE ---
Pt given kami care and sat upright. Performed swallow eval, unable to drink water without extensive weak cough.
--- NOTE | 2020-01-22 13:29 | PC.NURSE ---
report given to Deric HERNANDEZ
--- NOTE | 2020-01-22 16:25 | PT.IIE ---
Surgical History (Last Reviewed 01/16/20 @ 06:35 by Kat Pettit DO) History of cataract removal with insertion of prosthetic lens (02/2016) Hx of cystoscopy (Acute 04/2017) Hx of transurethral resection of prostate (Resolved 04/2017) Status post colectomy (2010) Status post hernia repair (05/2013) Medical History (Last Reviewed 01/16/20 @ 06:35 by Kat Pettit DO) Arthritis (Chronic) BPH (benign prostatic hyperplasia) (Chronic) Colon polyps (Resolved) Depression (Chronic) Hernia (Resolved) History of alcohol abuse (Resolved 1980) Hyperlipemia (Chronic) Hypertension (Chronic) Osteopenia (Chronic) Osteoporosis (Chronic) Shoulder pain (Resolved) Urinary retention (Resolved ~04/2017) Physical Therapy Inpatient Evaluation/Re-Eval M1 PT/OT-IP Prior Functional Status Start: 01/22/20 15:30 Freq: Status: Active Protocol: Document 01/22/20 16:31 LRN (Rec: 01/22/20 16:57 LRN [id number]) Medical Review Prior Functional Status Medical History Reviewed Yes Communication Per ED staff (RN): Pt is sometimes able to communicate clearly, variable ability. Mobility and Gait Per ED staff: Mobility capability is variable. Has cane. Has walked in bent forward posture with cane. Does not have walker due to it not fitting into his car. Activities of Daily Living and IADL's Records indicate: Pt is incontinent with urine and feces. Lives in car. Prior Functional Level (Other details) Pt is homeless. Social History Household Members none Home Equipment Straight Cane Additional Social History Comment See prior level of function above regarding home status. M2 PT-IP Current Condition Start: 01/22/20 15:30 Freq: Status: Active Protocol: Document 01/22/20 16:31 LRN (Rec: 01/22/20 16:57 LRN [id number]) Physical Therapy Current Condition Current Condition Evaluation Date 01/22/20 Treatment Diagnosis Environmental exposure Onset Date Admit to ED 01/22/20. Precautions Other Precautions Not safe to stand & ambulate independent. Weight Bearing Status Weight Bearing Status Full Weight Bearing M3 PT-IP Subjective Start: 01/22/20 15:30 Freq: Status: Active Protocol: Document 01/22/20 16:31 LRN (Rec: 01/22/20 16:57 LRN [id number]) Subjective Physical Therapy Visit Type Type Initial Evaluation Visit Start Time 15:50 Visit Stop Time 16:25 Total Visit Minutes 35 Physical Therapy Visit Comments Patient Comments Pt difficult to understand, mumbles. Is able to shake head yes, no. Pt requested to use bathroom, but indicates he is not able to walk. Patient Goals Pt not able to clearly verbalize. Therapy Pain Assessment Pain Present Pain Present Pain Reported Location L arm Pain Behaviors Facial Grimacing M4 PT-IP Mobility and Gait Start: 01/22/20 15:30 Freq: Status: Active Protocol: Document 01/22/20 16:31 LRN (Rec: 01/22/20 16:57 LRN [id number]) PT-Bed Mobility Assessment Supine to Sit Supine to Sit Moderate Assistance Sit to Supine Sit to Supine Moderate Assistance Scooting Scooting to Edge of Bed Dependent Scooting Up and Down in Bed Dependent PT-Transfer Assessment Equipment Transfer Assistive Device Gait Belt,Front Wheeled Walker Transfer Ability Level of Assist Maximum Assistance Comments Mobility Comments Pt attempted standing but legs not able to support himself. Pt leaned to the left while in sitting. He was able to partially support himself in sitting for brief moments. Gait Assessment Comments Gait Comments Pt not safe for ambulation. He is not able to sit independently and is not able to stand, therefore he is not able to pass the first part of the Egress Test. Stair Climbing Assessment Comments Stair Climbing Comments Not appropriate. PT-Balance Assessment Sitting Balance and Reactions Static Sitting Balance Ability Poor Dynamic Sitting Balance Ability Poor Comments Other Balance Tests/Deviations/Treatment Pt not able to stand with : assist due to legs giving out. M5 PT-IP Objective Assessments Start: 01/22/20 15:30 Freq: Status: Active Protocol: Document 01/22/20 16:31 LRN (Rec: 01/22/20 16:57 LRN [id number]) Orientation Orientation/Cognition Level of Alertness Alert Orientation Name,Situation Language Function Ability Garbled Speech Safety Awareness Decreased Safety Awareness Gross Range of Motion Upper Extremity ROM Assessment Bilaterally Impaired Lower Extremity ROM Assessment Bilaterally Impaired Strength Upper Extremity Strength Assessment Left Impaired Lower Extremity Strength Assessment Bilaterally Impaired Comments Strength Comments Pt not able to perform knee ext in sitting. M7 PT-IP Assessment and Plan Start: 01/22/20 15:30 Freq: Status: Active Protocol: Document 01/22/20 16:31 LRN (Rec: 01/22/20 16:57 LRN [id number]) PT Summary Assessment and Plan Potential Rehabilitation Potential Fair Status of Condition at Evaluation Evolving Summary Impairments Strength,Balance,Cognition,Bed Mobility,Transfers,Gait, Activity Tolerance Assessment Summary Pt is a 73 year old male who requires assist with bed mobility and transfers. He is not able to stand from what appears to be weakness. It is difficult to understand the pt due to garbled speech. The pt is not safe for independent living. The pt will benefit from skilled physical therapy to improve function and level of independence. Goals Bed Mobility Goal Independent Transfer Goal Independent Gait Goal Independent,Cane Gait Distance 50' Days to Meet Goals 3 Frequency of Treatment Frequency Of Treatment Twice a Day Treatment Plan Physical Therapy Treatment Plan Bed Mobility Training,Transfer Training,Gait Training, Therapeutic Exercise,Balance Retraining Recommendations To Nursing Amount of Assist Needed 2 Person Assist Discharge Recommendations PT Discharge Recommendations SNF Rehab Other Discharge Recommendations Pt home is his car. If pt chooses home he will not be able to use walker and he will need to be able to walk to his car and get in/out of the seat. The pt would be safer with a FWW if he is able to manuever it in/out of his car. Equipment Needed for Home Before Verify pt has cane, may need Discharge walker.
[2020-01-22] MEDS: SODIUM CHLORIDE 0.45% 1,000 ML 1000 ML IV (17:50)
--- NOTE | 2020-01-22 21:45 | P.HP_ITS ---
History of Present Illness History of Present Illness Date Patient Seen: 01/22/20 Time Patient Seen: 21:58 Chief complaint: Cold Narrative: Mr. Dion Brownlee is a 75-year-old male who has a past medical history significant for hypertension, hyperlipidemia, BPH post TURP, urinary incontinence and Parkinson's disease who called EMS because he was cold. The patient is homeless and lives out of his vehicle and is well-known to the facility having been to the ER 5 times and admitted wants so far this year. The patient is a poor historian and provides no other specific complaint other than feeling cold. The patient is discheveled and unkempt and appears malnourished. On examination he is found have a new large lesion lateral left hip with surrounding erythema and tenderness. And a right sacral decubiti with multiple abrasions and skin is excoriation. Again the patient denies specific complaints and denies trauma or injury. He has no chest pain or shortness of breath and denies abdominal pain. He is incontinent urine. Upon arrival to the ER the patient has a temperature of 97.7?, heart rate of 98, blood pressure 132/63, respirations of 14 saturating 96% on room air. Imaging is obtained of the left hip which finds no evidence of osteomyelitis. On laboratory analysis the patient has an elevated white count of 17.7 with left shift, hemoglobin of 16.5 and hematocrit of 48.2 and platelets of 393. On chemistry the patient has a sodium of 158, potassium at 3.3, chloride of 122, CO2 of 20, BUN of 38 and creatinine 1.0 with a nonfasting glucose of 118. TSH is found to be 0.63, procalcitonin is 0.13. While in the ER the patient received 1 L of 0.45 normal saline and Cipro 500 mg p.o.. The patient is admitted to the medicine service for cellulitic left hip lesion with hypernatremia and hypokalemia in the setting of dehydration. Patient History Medical History Arthritis (Chronic) BPH (benign prostatic hyperplasia) (Chronic) Colon polyps (Resolved) Depression (Chronic) Hernia (Resolved) History of alcohol abuse (Resolved 1980) Hyperlipemia (Chronic) Hypertension (Chronic) Osteopenia (Chronic) Osteoporosis (Chronic) Shoulder pain (Resolved) Urinary retention (Resolved ~04/2017) Surgical History History of cataract removal with insertion of prosthetic lens (02/2016) Hx of cystoscopy (Acute 04/2017) Hx of transurethral resection of prostate (Resolved 04/2017) Status post colectomy (2010) Status post hernia repair (05/2013) Family & Social History Family History Father Alcohol abuse Smoker Mother Osteoporosis Social History: household members none Safety & Behavioral: Feels Safe in Current Yes Environment Been Physically Hurt or No Threatened By a Person Tobacco & Substance use: Smoking Status Never smoker alcohol intake former alcohol intake frequency 0-2 drinks per day Substance Use Type does not use Comment: The patient is homeless and lives out of his vehicle. Advanced directives: The patient is unable to participate in conversation with regarding advanced directives but based on prior medical records and palliative care consult the patient is to be FULL CODE. The patient is previously designated Jean-Claude Johnson to be his surrogate decision maker. Meds Home Medications and Allergies Home Medications Medication Instructions Recorded Confirmed Type Adult Diapers #30 each 08/10/18 01/22/20 Rx DISABLED PARKING PLACARD #1 ea 09/27/18 01/22/20 Rx ergocalciferol (vitamin D2) 1,250 50,000 unit PO QWEEK #4 cap 06/28/19 01/22/20 Rx mcg (50,000 unit) capsule atorvastatin 40 mg tablet 40 mg PO BEDTIME #90 tab 11/07/19 01/22/20 Rx tamsulosin 0.4 mg capsule 0.4 mg PO BEDTIME #90 cap 11/07/19 01/22/20 Rx carbidopa-levodopa 1 tab PO TID 01/02/20 01/22/20 History oxybutynin chloride 2.5 mg PO TID 01/02/20 01/22/20 History aspirin 81 mg PO DAILY #30 tab 01/06/20 01/22/20 Rx ciprofloxacin HCl 500 mg PO BID #20 tab 01/22/20 Rx Allergies Allergy/AdvReac Type Severity Reaction Status Date / Time No Known Drug Allergies Allergy Verified 11/16/19 12:22 Review of Systems Review of Systems ROS: Yes All systems reviewed with the patient and are negative except as otherwise documented and unobtainable due to mental condition (The patient is somnolent, minimally responsive to questions) Exam Vital Signs (past 8 hours): - 01/22/20 17:23 01/22/20 18:32 Temperature 97.5 F L 98.8 F Pulse Rate 96 H 98 H Respiratory Rate 20 28 H Blood Pressure 104/60 Blood Pressure [Left Arm] 115/77 Pulse Oximetry 98 93 Oxygen Delivery Method Room Air Narrative Exam Narrative: GENERAL APPEARANCE: well developed, unkempt very thin male with poor muscle mass, odor of urine, laying right lateral in bed alert but minimally interactive. HEENT: Atraumatic PERRLA, conjunctiva clear, sclerae are anicteric EOM intact,no rhinorrhea or epistaxis, dry cracked lips, mucous membranes are mucous membranes are dry dry and pink NECK/THYROID: Resistive to range of motion, no tenderness elicited on palpation, no step-offs, no JVD, no carotid bruit, no thyromegaly, trachea midline. LYMPH NODES: no cervical or supraclavicular lymphadenopathy. SKIN: Multiple areas of abrasions, excoriation bilateral extremities, no ecchymosis, 8 cm x 5 cm dark leathery skin lesion left hip, 2.5 cm right sacral decubitus with skin tear with slight bleeding. HEART: regular rate and rhythm, S1-S2, no murmur, no rubs or gallops, delayed capillary refill no edema LUNGS: clear to auscultation bilaterally, no coarseness crackles or wheezing, no cough present CHEST: Symmetrical movement, no accessory muscle use, shallow tidal volume. ABDOMEN: Soft, scaphoid, nontender, no peritoneal signs, no organomegaly, no flank or suprapubic tenderness, active bowel tones. BACK: Normal curvature, nontender to palpation, no CVA tenderness on percussion EXTREMITIES: Decreased range of motion, resistance to movement, no deformities or joint effusions. NEUROLOGIC: GCS- 11 (3/2/6), cranial nerves II-XII grossly intact, response to touch in distal extremities, Babinski absent. PSYCH: Alert, minimally interactive, flat affect cooperative behaviorally stable Objective Labs Result Diagrams: 01/22/20 10:05 01/22/20 10:05 Labs: Laboratory Results - last 24 hr 01/22/20 01/22/20 01/22/20 10:05 10:05 10:05 WBC 17.7 H RBC 5.43 Hgb 16.5 Hct 49.2 MCV 90.7 MCH 30.4 MCHC 33.5 RDW 14.5 Plt Count 393 Neut % (Auto) 84.7 H Lymph % (Auto) 6.9 L [place] % (Auto) 8.2 Eos % (Auto) 0.0 L Baso % (Auto) 0.2 Neut # (Auto) 47584 H Lymph # (Auto) 1200 [place] # (Auto) 1500 H Eos # (Auto) 0 Baso # (Auto) 0 Sodium 158 H D Potassium 3.3 L Chloride 122 H* Carbon Dioxide 20 L BUN 38 H Creatinine 1.00 Estimated GFR > 60.0 BUN/Creatinine Ratio 38.0 H Glucose 118 H Lactate Calcium 10.3 H Total Bilirubin 0.8 AST 172 H ALT 79 H Alkaline Phosphatase 106 Total Protein 8.0 Albumin 4.1 Globulin 3.9 Albumin/Globulin Ratio 1.1 Procalcitonin TSH 0.63 01/22/20 01/22/20 10:05 11:02 WBC RBC Hgb Hct MCV MCH MCHC RDW Plt Count Neut % (Auto) Lymph % (Auto) [place] % (Auto) Eos % (Auto) Baso % (Auto) Neut # (Auto) Lymph # (Auto) [place] # (Auto) Eos # (Auto) Baso # (Auto) Sodium Potassium Chloride Carbon Dioxide BUN Creatinine Estimated GFR BUN/Creatinine Ratio Glucose Lactate 1.9 Calcium Total Bilirubin AST ALT Alkaline Phosphatase Total Protein Albumin Globulin Albumin/Globulin Ratio Procalcitonin 0.13 TSH Assessment & Plan Assessment & Plan narrative: This is a 75-year-old male patient presents to the ER with complaints of being cold with no focal complaints of other pain or problems. The patient is found to be severely dehydrated with hypernatremia, hypokalemia and new skin wound with cellulitis left hip. 1. Acute on chronic debility, deconditioning and failure to thrive, present on admission. Stable and improved. Patient has known progressive worsening generalized weakness, gait instability, and deconditioning (secondary to chronic severe protein calorie malnutrition and muscle loss with possible Parkinson's disease and recurrent UTI contributing transiently) to the extent that the patient was having trouble walking without significant assistance and he was having difficulty performing ADLs including bathing or changing himself. Patient denies any recent trauma or significant falls. Clinical exam reveals no abrasions or signs of trauma. on prior admission consult palliative care. We appreciate Nica ARIAS's time and recommendations. unable to ascertain whether the patient has followed up as recommended with resources provided 2. Acute severe dehydration, present on admission, active. Patient clinically dehydrated with dry cracked lips and dry oral mucous membranes, delayed capillary refill, skin tenting. Patient with acute liver injury with increase in total bilirubin from 0.7-0.8, increase in AST from 28-172, increase in ALT from 16-78, stable alkaline phosphatase. Resultant hypernatremia at 158, patient received 1 L of 0.45% saline in the ER, continue 0.45% saline at 125 cc/hour. Resultant hypokalemia at 3.3, ordered potassium 40 mEq IV rider. Will recheck CMP in the morning 3. Pressure wound with cellulitis left hip, acute, present on admission, active. Patient has developed a large 8 cm x 5 cm dark eschar covered unstageable wound to his left hip. Surrounding skin is cellulitic in appearance with redness and warmth, no drainage noted X-ray taken of the right hip shows no evidence of cellulitis or description of underlying fluid collection. Ordered ceftriaxone 2 g IV daily. Requested consult from wound care for evaluation and recommendations. 4. Two stage II decubitus pressure ulcerations on right gluteus, chronic, present on admission. Stable. Patient has two stage II 1-2 mm decubitus pressure ulcerations on medial aspect of right gluteus that do not appear infected and are healing. Continued to apply barrier cream and perform frequent turns/repositioning every 2 hours. 5. Chronic severe protein calorie malnutrition, present on admission. Stable. related to homelessness and unreliable and inconsistent supply and inability to seek sources of nourishment nourishment. BMI has further decreased from 20.9 to 18.1. Consulted dietitian and we appreciate her time, recommendations and resources provided. 6. Possible Parkinson's disease, chronic, present on admission. Stable. Unclear diagnosis but patient does have and neurology at [facility] started patient on carbidopa/levodopa for which the patient tolerated well. patient with extremity rigidity without cogwheeling or tremor. Continued carbidopa levodopa 1 tab 3 times daily. 7. Hyperlipidemia, chronic, present on admission. Stable. Continued home regimen of atorvastatin 40 mg daily at bedtime. 8. Hypertension, chronic, present on admission. Stable. Hypertension not in evidence on admission, initial blood pressure 132/63 in later on the floor 114/71. Patient is not medically treated and takes no antihypertensives. 8. BPH status post TURP with urinary incontinence, chronic, present on admission. Stable. -Continued oxybutynin 2.5 mg 3 times daily and tamsulosin 0.4 mg daily at bedtime. VTE prophylaxis: SCDs, heparin Diet: NPO until more awake, then will challenge with swallow evaluation IV fluid: 0.45% normal saline at 125 cc/hour The patient is admitted to the hospital for altered mental status secondary to severe dehydration, hypernatremia with hypokalemia and acute liver injury in the setting of Parkinson's underline debilitation and malnutrition. The patient is admitted as an inpatient with expected length of stay to be greater than 2 midnights. Scores GCS [place] coma scale eye opening: To sound [place] coma scale verbal response: Sounds [place] coma scale motor response: Obey commands [place] coma scale total score: 11
[2020-01-22 21:55] LABS: Magnesium 2.6 mg/dL (1.6-2.3)
[2020-01-22] MEDS: POTASSIUM CHLORIDE 40 MEQ in SODIUM CHLORIDE 0.9% 500 ML 130 ML IV (22:59)
[2020-01-23] VITALS (11 sets, daily range): BP systolic 87–126; BP diastolic 42–72; PULSE 62–103; RESP 16–20; TEMP 36.5–37.2; O2SAT 91–99
--- NOTE | 2020-01-23 00:59 | PC.NURSE ---
Addendum entered by Zhanna Bacon R.N. 01/23/20 01:08: Late note: unable to do complete admission assessment as I could not understand patient's words. Original Note: Admission note: Angel brought from ER to rm 218 around 1830, awake, unable to speak clearly, words very garbled, multiple staff members unable to understand him. Slider board transfer from stretcher to bed. VS stable, RA oxygen mid-90's. Patient feels very warm [id number] but is afebrile. His skin/nails/clothing are soiled, removed & placed in bag in closet Gown placed, kami-care done & new brief placed. Large pressure wound to left hip covered with rubbery layer of arroyo/black eschar, wound unstageable. Area around wound is erythemic, blanchable. R sacrum with small open area, appears as stage 2 pressure wound. Both buttocks R>L covered with small dry scabs or abrasions, no drainage from those sites. Back covered with raised dry brown patches, few erythemic areas [id number] back. Left shoulder erythemic, most of his bony prominences are erythemic. Hands badly bruised bilaterally. Heels with scabbed areas, R heel appears more as unstageable pressure wound. Since admission patient mostly sleeping, does awake easily, stares at nurse, sometimes non-verbal, sometimes attempting to answer but speech garbled. ASSEMBLY LINE LEADER reported that patient failed his bedside swallow eval in the ER. IVF infusing as ordered. Now K+ rider infusing. Fall precautions in place, alarm active for safety.
[2020-01-23 01:20] LABS: Appearance Urine UA SL CLOUDY; Bilirubin Urine UA 1+ (NEGATIVE); Glucose Urine UA NEGATIVE (Negative); Ketones Urine UA TRACE (NEGATIVE); Leukocyte Esterase Urine UA NEGATIVE (NEGATIVE); Nitrite Urine UA NEGATIVE (Negative); Occult Blood Urine UA 3+ (Negative); Protein Urine UA 1+ (Negative); Urobilinogen Urine UA 0.2 E.U./dL (0.2)
[2020-01-23 01:31] LABS: Color Urine UA Dark Yellow
[2020-01-23 01:32] LABS: Ictotest Urine Positive (Negative); RBC Urine 30-100/HPF (0-5/HPF)
[2020-01-23 01:33] LABS: Bacteria Urine Moderate (10-30); Squamous Epithelial Cell Urine 1-5 /HPF (0-5/HPF); WBC Urine 10-30/HPF (0-5/HPF)
[2020-01-23 01:34] LABS: Culture Indicated Urine Specimen Cultured; Mucus Urine 1+ (Negative)
[2020-01-23] MEDS: CEFTRIAXONE 2 GM/50 ML FROZ.PIGGY IV (02:21)
[2020-01-23] MEDS: SODIUM CHLORIDE 0.45% 1,000 ML 125 ML IV ×4 (04:07→22:50)
[2020-01-23 05:50] LABS: Add Manual Diff / Slide Review NO; Basophils Absolute Auto 100 /uL (0-100); Basophils Percent Auto 0.6 % (0-2); Eosinophils Absolute Auto 0 /uL (0-450); Eosinophils Percent Auto 0.1 % (2-4); Hematocrit 46.2 % (41-53); Hemoglobin 15.3 g/dL (13.5-17.5); Lymphocytes Absolute Auto 1500 /uL (1100-4500); Lymphocytes Percent Auto 10.8 % (25-40); Mean Corpuscular HGB Conc 33.1 % (30-36); Mean Corpuscular Hemoglobin 30.2 PG (26-34); Mean Corpuscular Volume 91.1 fL (80-100); Monocytes Absolute Auto 1600 /uL (0-900); Monocytes Percent Auto 11.2 % (3-14); Neutrophils Absolute Auto 11000 /uL (1500-7000); Neutrophils Percent Auto 77.3 % (50-75); Platelet Count 340 X10^3/uL (150-400); Red Blood Cell Count 5.07 X10^6/uL (4.5-5.9); Red Cell Distribution Width 14.8 % (11.6-14.8); White Blood Cell Count 14.3 X10^3/uL (4.5-11.0)
[2020-01-23 06:01] LABS: Alanine Aminotransferase 64 IU/L (<50); Albumin 3.4 g/dL (3.5-5.0); Alkaline Phosphatase 80 U/L (38-126); Aspartate Aminotransferase 108 IU/L (17-59); BUN Creatinine Ratio 37.7 (6-22); Bilirubin Total 0.5 mg/dL (0.2-1.3); Blood Urea Nitrogen 49 mg/dL (9-20); Calcium 9.3 mg/dL (8.4-10.2); Carbon Dioxide 20 mmol/L (22-32); Estimated Glomerular Filt Rate 54.1 mL/min (>60); Globulin 3.5 g/dL (1.7-4.1); Glucose 123 mg/dL (80-110); HEMOLYSIS < 15 (0-50); Phosphorous 3.8 mg/dL (2.3-3.7); Potassium 3.3 mmol/L (3.4-5.1); Total Protein 6.9 g/dL (6.3-8.2)
--- NOTE | 2020-01-23 06:11 | PC.NURSE ---
Patient is AXOx2, hard to understand and mumbled speech. VSS, lung sounds clear. Many skin issues that are charted on the skin assessment. Patient has allevyn dressing on R buttocks. Patient passed swallow evaluation on this shift, on nectar thick liquids and dysphagia diet. Patient is very weak and because of skin break down needs Q2 turns. Patient is incontinent in a brief, we have been trying to get him to use the urinal at times on this shift, with success to send a urine culture. Bernadette from Lab called with critical results Chloride 127 and Sodium of 159, results reported to Orlin ARIAS.
[2020-01-23 06:13] LABS: Chloride 127 mmol/L (98-107); Sodium 159 mmol/L (137-145)
[2020-01-23] MEDS: POTASSIUM CHLORIDE 20 MEQ/15 ML UDC 40 MEQ PO (06:39)
--- NOTE | 2020-01-23 10:20 | DIET.PN ---
Dietary Progress Note Assessment: 75y M referred to nutrition to assess protein calorie malnutrition and food insecurity/homelessness, note, pt changed to Severe Acute PCM today. Pt endorses being incarcerated for 22y, has had difficulty securing housing and work since 2011. Pt has been living in his truck (which he reports is 32 years old) for past 18mo, sleeping in drivers seat, is incontinent of urine and stool and eats one meal per day that he purchases from the [employer]. Pt reports being barred from using city public restrooms and from [employer]. Pt able to shop at [employer] after 4pm. Pt has $785/mo total income. Pt reports difficulty accessing facility to perform self care and cleaning. States I can't change my adult diapers on the street so they leak on my clothes. Brushes teeth in vehicle. Pt's PCM is complicated by food insecurity. Pt's weight has fluctuated by 12kg in past 2y, occasionally friends will feed him or let him stay over in a room, but always ends up living in truck and running out of money to purchase food. Pt is at lowest body weight to date. Pt reports eating 1 meal/d of bar food and sometimes will have a snack of potato chips or popcorn. Pts diet is deficient in fruits/vegetables/whole grains/dietary fiber and likely micronutrients with no multivitamin use. Pt is a former alcoholic (40y ago). Pt has new cellulitic L hip lesion, stage 2 healing ulcers on bottom, suffers from tremor which he is unsure is Parkinsons, and has mild dementia. Pt does not endorse utilizing nae meal programs or the food bank. Pt has no facility to prepare foods and does not drive in the dark reducing opportunities for evening meals in the winter months. [facility] pt attend meal sites to help stretch his budget and to purchase low cost ready made items like peanut butter, bananas, hard boiled eggs, tuna packets, and whole wheat bread which are shelf stable and provides missing nutrients to pt's current diet. HT: 170.1cm WT: 54.4kg (11% drop in 3w, 60.5kg on 01/05/2020 per [facility] records) BMI: 18.8 severe for age MNA: 4 malnourished Ulisses: 16 at risk for skin breakdown Nutrition Diagnosis: Severe Acute PCM r/t food and housing insecure senior citizen aeb 11% unintentional wt loss in 3weeks (severe), BMI 18.8 (severe for age), <75% EERs in >1mo, NFPE showing moderate subcutaneous fat losses system wide, pt 74y old living in vehicle for 18mo endorsing eating one meal/d, incontinent of urine and feces. Interventions: Recc nectar thick ONS Ensure Enlive tid to supply 58% of kcals and 75% of protein to support PCM and promote weight and muscle gain. Diet Order: General EER: 1800kcal, 80g PRO (1.3g/kg per maln), 1.9L fluids Monitoring/Evaluations:ons tolerance, POs, weight
--- NOTE | 2020-01-23 10:29 | ST.IPCSEOM ---
Current Diagnoses Cellulitis, unspecified (01/22/20) Pressure ulcer of unspecified hip, unspecified stage (01/22/20) Past Medical History (Last Reviewed 01/23/20 @ 01:29 by HUGO Hoff) Arthritis (Chronic Medical) BPH (benign prostatic hyperplasia) (Chronic Medical) Colon polyps (Resolved Medical) Depression (Chronic Medical) Hernia (Resolved Medical) History of alcohol abuse (Resolved Medical 1980) quit drinking 04/1981 Hyperlipemia (Chronic Medical) Hypertension (Chronic Medical) Osteopenia (Chronic Medical) Osteoporosis (Chronic Medical) Shoulder pain (Resolved Medical) rt. Urinary retention (Resolved Medical ~04/2017) Speech-Language Pathology Swallow Evaluation INSTRUCTIONAL MATERIALS DIRECTOR Clinical Swallow Evaluation Start: 01/23/20 10:06 Freq: Status: Active Protocol: Document 01/23/20 10:06 TLC (Rec: 01/23/20 10:28 TLC [id number]) Clinical Swallow Evaluation Session Time Visit Start Time 09:20 Visit Stop Time 10:00 Total Visit Minutes 40 Referral Reason for Referral Swallow, cognition Setting Assessment Location Acute Care Visit Type Note Type Initial Evaluation Next Note Type Next Note Type Treatment Note Patient Information History Patient is a 75-year-old male who has a past medical history significant for hypertension, hyperlipidemia, BPH post TURP, urinary incontinence and Parkinson's disease who called EMS because he was cold. The patient is homeless and lives out of his vehicle and is well-known to the facility having been to the ER 5 times and admitted once so far this year. Per nursing notes, patient failed swallow screen in the ER last night as he was unable to swallow water without coughing. He later passed the nursing swallow screen in acute care and was started on a nectar thick liquid, dysphagia mechanical diet per protocol. Subjective Observations Patient seen reclined in bed with breakfast tray having noted difficulty feeding himself evidenced by pieces of eggs in his coffee and around his bed. Poor hygiene noted. Evaluation Liquids Trialed Thin,[place] Solids Trialed Puree,Dysphagia Mechanical Administration Type Dependent Feeding Oral Impairment Moderately Impaired Oral Phase Comments Moderately reduced strength, coordination and range of motion of tongue, lips and jaw affecting both speech and oral phase of swallowing. Observed left sided facial droop at rest, symmetrical tongue on protrusion. Oral mucosa is pink, dry with oral residue in the teeth. Natural dentition. Patient reports he has requested dentures in the past, but does not have any. He states he does not perform routine oral care due to being homeless. Difficulty with oral prep phase resulting in loss of bolus from spoon during transfer to mouth. Once near mouth, bolus acceptance was adequate with no anterior loss of bolus observed. Moderate oral residue following bites requiring liquid wash to clear. Pharyngeal Phase Comments Unable to fully assess pharyngeal phase of swallowing ; however, patient did not demonstrate overt s/sx of aspiration during PO trials once head of bed was raised to 70%. He is independent for feeding. He exhibited occasional wet sounding vocal quality. Findings Rehabilitation Potential Good Impressions Moderately dysarthric speech which patient reports is new. Unknown whether or not left sided facial droop is new. Patient does have noted possible dx of Parkinson's disease which would explain the worsening speech intelligibility. Some word finding difficulty noted. Patient scored 16/30 on the SLUMs suggesting dementia ( compared to 15/30 on previous admission). He was able to state the year, state, name 5 animals in one minute, recall 3 out of 5 words from short term memory, complete reverse digit span for 2 and 3 numbers , and answer 4/4 questions correctly about a paragraph read alout. He was not able to correctly state the day of week, complete math word problem or complete a clock face. He had significant difficulty with writing number . He has moderate oral phase dysphagia due to oral weakness . He appears to be at low risk for aspiration when seating upright and alert; however, will continue to be monitored for signs of aspiration. Recommend MBSS if aspiration is suspected. Diet Recommendations Liquids Order Thin Diet Order Dysphagia Mechanical Medication Recommendations As Tolerated Aspiration Precautions Recommended Precautions Upright at 90 Degrees, Alternate Liquids/Solids, Lingual Sweep Treatment Plan Appropriate for Therapy Yes Therapy Recommendations Dysphagia management and education as needed. Cognitive training for problem solving given poor hygiene. Pt may benefit from skilled rehab pending coverage and assist, however pt is homeless and lives in his car.
[2020-01-23] MEDS: ASPIRIN EC 81 MG TABLET PO (10:59)
[2020-01-23] MEDS: CARBIDOPA-LEVODOPA 25/100 TABLET 1 EACH PO ×3 (10:59→22:22)
[2020-01-23] MEDS: OXYBUTYNIN 5 MG TABLET 2.5 MG PO ×3 (11:00→22:23)
[2020-01-23] MEDS: HEPARIN 5,000 UNIT/ML VIAL 5000 UNIT SUBCUT ×2 (11:00→22:15)
--- NOTE | 2020-01-23 11:15 | PT.IPTN ---
Current Diagnoses Cellulitis, unspecified (01/22/20) Pressure ulcer of unspecified hip, unspecified stage (01/22/20) Physical Therapy Treatment Note M2 PT-IP Current Condition Start: 01/22/20 15:30 Freq: Status: Active Protocol: Document 01/22/20 16:31 LRN (Rec: 01/22/20 16:57 LRN [id number]) Physical Therapy Current Condition Current Condition Evaluation Date 01/22/20 Treatment Diagnosis Environmental exposure Onset Date Admit to ED 01/22/20. Precautions Other Precautions Not safe to stand & ambulate independent. Weight Bearing Status Weight Bearing Status Full Weight Bearing M3 PT-IP Subjective Start: 01/22/20 15:30 Freq: Status: Active Protocol: Document 01/23/20 11:04 LRN (Rec: 01/23/20 11:15 LRN [id number]) Subjective Physical Therapy Visit Type Type Treatment Note Visit Start Time 10:45 Visit Stop Time 11:05 Total Visit Minutes 20 Physical Therapy Visit Comments Patient Comments Pt agreeable to therapy, understandable 80% of the time . Therapy Pain Assessment Pain When Pain Assessed During Mobility Pain Present Pain Present Pain Reported Location Everywhere Intensity 7 Scale Used Numeric (1 - 10) M4 PT-IP Mobility and Gait Start: 01/22/20 15:30 Freq: Status: Active Protocol: Document 01/23/20 11:04 LRN (Rec: 01/23/20 11:15 LRN [id number]) PT-Bed Mobility Assessment Supine to Sit Supine to Sit Moderate Assistance Scooting Scooting to Edge of Bed Moderate Assistance,Maximum Assistance PT-Transfer Assessment Sit to and From Stand Sit to and from Stand Moderate Assistance,1 Person Assistance Equipment Transfer Assistive Device Bed Rail,Gait Belt Orthotic/Prosthetic Devices or Brace: No Transfers Transfer Destination Chair Transfer Technique Stand Pivot Transfer Ability Level of Assist Moderate Assistance,Maximum Assistance,2 Person Assistance Comments Mobility Comments Recommend nursing use overhead lift. Pt required much guarding of feet and knees to achieve partial standing. Pt not able to take a step in any direction, he tends to lean left. Gait Assessment Comments Gait Comments Pt not safe for gait at this time. PT-Balance Assessment Sitting Balance and Reactions Static Sitting Balance Ability Fair Standing Balance and Reactions Static Standing Balance Ability Poor Dynamic Standing Balance Ability Poor Device Used 2 person assist M5 PT-IP Objective Assessments Start: 01/22/20 15:30 Freq: Status: Active Protocol: Document 01/22/20 16:31 LRN (Rec: 01/22/20 16:57 LRN [id number]) Orientation Orientation/Cognition Level of Alertness Alert Orientation Name,Situation Language Function Ability Garbled Speech Safety Awareness Decreased Safety Awareness Gross Range of Motion Upper Extremity ROM Assessment Bilaterally Impaired Lower Extremity ROM Assessment Bilaterally Impaired Strength Upper Extremity Strength Assessment Left Impaired Lower Extremity Strength Assessment Bilaterally Impaired Comments Strength Comments Pt not able to perform knee ext in sitting. M7 PT-IP Assessment and Plan Start: 01/22/20 15:30 Freq: Status: Active Protocol: Document 01/23/20 11:04 LRN (Rec: 01/23/20 11:15 LRN [id number]) PT Summary Assessment and Plan Potential Rehabilitation Potential Fair Status of Condition at Evaluation Evolving Summary Impairments Pain,ROM,Strength,Balance, Cognition,Bed Mobility, Transfers,Gait,Activity Tolerance Progress Towards Goals Slow Progress - Other Assessment Summary Pt presents with poor sitting balance with a lean to the left in independent sitting. He is able to maintain independent sitting with supervision, but may be holding on with RUE to keep from falling to L rather than supporting himself with the LUE. Further assessment needed. Pt is not able to stand and transfer and requires max assist. Goals Bed Mobility Goal Independent Transfer Goal Independent Gait Goal Independent,Cane Gait Distance 50' Days to Meet Goals 2 Frequency of Treatment Frequency Of Treatment Twice a Day Treatment Plan Physical Therapy Treatment Plan Bed Mobility Training,Transfer Training,Gait Training, Therapeutic Exercise,Balance Retraining Other Recommendations and Next Treatment ambulation, standing balance/ Focus tolerance Recommendations To Nursing Amount of Assist Needed 2 Person Assist,Mechanical Lift Discharge Recommendations PT Discharge Recommendations SNF Rehab Equipment Needed for Home Before Possibly walker Discharge
--- NOTE | 2020-01-23 11:46 | OT.IP.EVAL ---
Current Diagnoses Cellulitis, unspecified (01/22/20) Pressure ulcer of unspecified hip, unspecified stage (01/22/20) Past Medical History (Last Reviewed 01/23/20 @ 01:29 by HUGO Hoff) Arthritis (Chronic) BPH (benign prostatic hyperplasia) (Chronic) Colon polyps (Resolved) Depression (Chronic) Hernia (Resolved) History of alcohol abuse (Resolved 1980) Hyperlipemia (Chronic) Hypertension (Chronic) Osteopenia (Chronic) Osteoporosis (Chronic) Shoulder pain (Resolved) Urinary retention (Resolved ~04/2017) Surgical History (Last Reviewed 01/23/20 @ 01:29 by HUGO Hoff) History of cataract removal with insertion of prosthetic lens (02/2016) Hx of cystoscopy (Acute 04/2017) Hx of transurethral resection of prostate (Resolved 04/2017) Status post colectomy (2010) Status post hernia repair (05/2013) Occupational Therapy Inpatient Evaluation/Re-Eval M1 PT/OT-IP Prior Functional Status Start: 01/23/20 16:17 Freq: NEEDED Status: Active Protocol: Document 01/23/20 10:46 [facility] (Rec: 01/23/20 16:36 [facility] [id number]) Medical Review Prior Functional Status Medical History Reviewed Yes Communication Per ED staff (RN): Pt is sometimes able to communicate clearly, variable ability. Mobility and Gait Per ED staff: Mobility capability is variable. Has cane. Has walked in bent forward posture with cane. Does not have walker due to it not fitting into his car. Activities of Daily Living and IADL's Records indicate: Pt is incontinent with urine and feces. Lives in car. Prior Functional Level (Other details) Pt is homeless. Social History Household Members none Living Arrangements Homeless Home Equipment Straight Cane Additional Social History Comment See prior level of function above regarding home status. M2 OT-IP Current Condition Start: 01/23/20 16:17 Freq: Status: Active Protocol: Document 01/23/20 10:46 [facility] (Rec: 01/23/20 16:36 [facility] [id number]) Occupational Therapy Current Condition Current Condition Evaluation Date 01/23/20 Treatment Diagnosis environmental exposure,debility decreased mobility Weight Bearing Status Weight Bearing Status Weight Bear as Tolerated M3 OT- IP Subjective and Pain Start: 01/23/20 16:17 Freq: Status: Active Protocol: Document 01/23/20 10:46 [facility] (Rec: 01/23/20 16:36 [facility] [id number]) OT- Subjective Occupational Therapy Visit Type Type Initial Evaluation Visit Start Time 10:46 Visit Stop Time 11:46 Occupational Therapy Visit Comments Patient Comments Pt not realizing that he was wet and after encouragement agreed to get up. Patient/Caregiver Goals To go to fpc or have a place to live. OT Pain Assessment Pain When Pain Assessed At Rest Pain Present Pain Present Denied Pain M4 OT- IP ADL's Start: 01/23/20 16:17 Freq: Status: Active Protocol: Document 01/23/20 10:46 [facility] (Rec: 01/23/20 16:36 [facility] [id number]) OT [id number] General Evaluation Self-Feeding Ability Standby Assistance Areas Needing Assistance Opening Containers Comments OT Self-Feeding Comments Assist for set-up. OT ADL-Grooming Comments OT Grooming Comments Pt able to wash his hands with wash cloth and not wanting to do any other grooming needs at this time. OT ADL-Oral Care Comments Oral Care Comments Pt refusing. OT ADL-Dressing General Eval Lower Body Dressing Ability Maximum Assistance Comments OT Dressing Comments Due to pt's flexed posture and decreased dynamic balance, MAX A for socks and brief at this time. OT ADL-Toileting General Evaluation Toileting Ability Total Assistance Comments OT Toileting Comments Pt incontinent of bowel and bladder. OT ADL-Bathing Comments OT Bathing Comments Not performed. M6 OT- IP Functional Cognition Start: 01/23/20 16:17 Freq: Status: Active Protocol: Document 01/23/20 10:46 [facility] (Rec: 01/23/20 16:36 [facility] [id number]) Cognitive Factors Limiting Selfcare Function Cognitive Ability Level of Alertness Alert,Confusional State Patient Orientation Name,Month,Year Attention Span Ability Capable of Focused Attention, Unable to Sustain Attention Ability to Follow Commands Able to Follow One Step Commands with Increased Time, Able to Follow One Step Commands with Repetition Memory Description Short Term Impaired Safety Awareness Underestimates Need for Assistance Problem Solving Ability Unable to Identify Errors, Needs Assist to Identify Solutions Cognitive Tests SLUMS Pt scored 16/30 on the SLUMS per PADDING MACHINE OPERATOR today. Pt scored 15/ 30 when here on 01/05/20, both scores implies dementia. Cognitive Comments Cognitive Assessment Comments Pt not able to focus and stay on topic for conversations and at times states not sure if his dreams are real or not. Pt needing simple concrete commands to follow, in addition increased time to process and follow directions. OT- Vision and Hearing OT- Vision Assessment Vision Assessment Comments Pt states wears glasses but not here in the hospital. M7 OT- IP Mobility and Balance Start: 01/23/20 16:17 Freq: Status: Active Protocol: Document 01/23/20 10:46 [facility] (Rec: 01/23/20 16:36 [facility] [id number]) OT- Bed Mobility Assessment Rolling Type of Rolling Roll to Left Level of Assistance Moderate Assistance Supine to Sit Supine to Sit Assist Moderate Assistance,1 Person Assistance OT-Transfer Assessment Sit to and From Stand Sit to and from Stand Maximum Assistance,2 Person Assistance Transfers Transfer Ability Maximum Assistance,2 Person Assistance Technique Transfer Destination Bed,Chair Transfer Technique Squat Pivot Devices Transfer Assistive Devices None,Gait Belt Comments Mobility Comments Pt tends to sit into lateral tilt to the left and posterior tilt. Pt not able to stand all the way up as his legs unable to straighten due to tightness. MAX A X 2 to stand and transfer to recliner. Pt heavily holding to grab bar and needing assist hand over hand assist to let go so able to move to the recliner. Transfer back MAX A X 2 to squat pivot at this time. Pt resists movements and tends to lean back into posterior tilt . OT- Gait Assessment Comments Gait Ability Comments Not at this time. OT- Balance Assessment Sitting Balance and Reactions Static Sitting Balance Ability Poor Dynamic Sitting Balance Ability Poor Standing Balance and Reactions Static Standing Balance Ability Poor Dynamic Standing Balance Ability Poor M8 OT- IP Objective Assessments Start: 01/23/20 16:17 Freq: Status: Active Protocol: Document 01/23/20 10:46 [facility] (Rec: 01/23/20 16:36 [facility] [id number]) OT Gross Range of Motion Upper Extremity Range of Motion Assessment Left Impaired ROM Impairments AROM left shoulder flexion 0- 70. OT Strength Comments Strength Comments RUE proximal to distal 4-/5 to 4/5. LUE 3-/5 to 3+/5. OT- Coordination Assessment Upper Extremity Finger to Nose Test Left UE Impaired OT Sensation Assessment Comments Summary Comments WFL for light touch. M9 OT- IP Assessment and Plan Start: 01/23/20 16:17 Freq: Status: Active Protocol: Document 01/23/20 10:46 [facility] (Rec: 01/23/20 16:36 [facility] [id number]) OT Summary Assessment and Plan Potential Rehabilitation Potential Fair Analytic Complexity at Evaluation Moderate Summary OT Impairments Range of Motion,Strength, Balance,Coordination, Functional Cognition, Functional Mobility,Grooming, Dressing,Toileting,Bathing, Toilet Transfers,Shower Transfers,Activity Tolerance Progress Towards Goals Slow Progress due to Medical Issues,Slow Progress due to Activity Tolerance,Slow Progress due to Cognition Assessment Summary Pt MOD complexity due to barriers of being homeless, decreased balance, strength, activity tolerance, and now needing extensive assist x2 for all dressing and mobility needs. Per pt states 2 days ago able to go to walk to the bathroom on his own, however pt is questionable historian. Pt would benefit initially from skilled rehab to help maximize his independence with ADl's and functional mobility and afterwards will possibly need penitentiary care or go to a facility that can provide him assist. Goals Self-Feeding Goal Independent Grooming Goal Independent Dressing Goal Minimal Assistance Toileting Goal Minimal Assistance Bathing Goal Moderate Assistance Toilet Transfer Goal Minimal Assistance Shower Transfer Goal Moderate Assistance Days to Meet Goals 15 Frequency of Treatment Frequency Of Treatment Once a Day Treatment Plan OT Treatment Plan ADL Training,Functional Cognition Training,Functional Mobility,Patient/Family Education,Discharge Planning Other Treatment Recommendations and Next Transfer to [facility] with MODA X 2 Treatment Focus Discharge Recommendations OT Discharge Recommendations SNF Rehab,LTAC Transportation Needs at Discharge Wheelchair/Cabulance,Stretcher /Ambulance
--- NOTE | 2020-01-23 12:21 | CM.DANOTE ---
DCP Assessment: EMR reviewed: Patient is a 75 yr old male who was admitted for infected pressure ulcer. Patients PCP is dr Frances. CM/Rn met with patient at the bedside. Patient was alert and oriented at time of CM/Rn visit. Patient currently lives in his truck but is working with his [facility] case finishing machine adjuster Yanick Manley at [phone] and left a message letting him know patient is currently here as a IP at our hospital. Patient is not currently I with ADL's and is struggling with walking and due to generalized weakness. PT and OT evaluations pending. I: Meidcare and medicaid Plan: D/C to SNF or a SWING bed. Cm/RN [facility]. CM/RN will also contact [facility] about possible swing bed placement. Stacie Carrion RN Discharge Planning/Care Management CM Discharge Assessment Start: 01/23/20 12:05 Freq: Status: Active Protocol: Document 01/23/20 12:05 (Rec: 01/23/20 12:08 [id number]) Discharge Planning Assessment Assigned Lawn Sprinkler Servicer Stacie Carrion RN DPOA/Assigned Designee Name Sonia mckeon Contact Information [phone] Advance Directives? No: pt confused/unable to answer History Provided By Patient Prior Living Arrangements Homeless Comment lived in his truck Household Members none Type of transporation used prior to Drives own vehicle admit Independent with ADL's No Is patient alert and oriented? Yes Needs Assistance With Bathing,Grooming,Managing Medications Patient/Family Preference [facility] Facility Barriers to Discharge Yes Comment Homeless, weak Discharge Plan Home Transportation Arrangement To be determined based on needs Referrals Initiated Prison Additional Comment Attempting SNF placement for patient. SNF/HH Preference No preference just any that will accept patient Has Agency SNF been contacted Yes Comment [facility], [facility] and [place]. Whiteboard Updated in Patient Room with Yes name and ext. # of Lawn Sprinkler Servicer Review Status In Process Next Review Type Continued Stay Review
--- NOTE | 2020-01-23 14:36 | PT.IPTN ---
Current Diagnoses Cellulitis, unspecified (01/22/20) Pressure ulcer of unspecified hip, unspecified stage (01/22/20) Physical Therapy Treatment Note M2 PT-IP Current Condition Start: 01/22/20 15:30 Freq: Status: Active Protocol: Document 01/22/20 16:31 LRN (Rec: 01/22/20 16:57 LRN [id number]) Physical Therapy Current Condition Current Condition Evaluation Date 01/22/20 Treatment Diagnosis Environmental exposure Onset Date Admit to ED 01/22/20. Precautions Other Precautions Not safe to stand & ambulate independent. Weight Bearing Status Weight Bearing Status Full Weight Bearing M3 PT-IP Subjective Start: 01/22/20 15:30 Freq: Status: Active Protocol: Document 01/23/20 14:36 [facility] (Rec: 01/23/20 15:32 [facility] [id number]) Subjective Physical Therapy Visit Type Type Treatment Note Visit Start Time 14:36 Visit Stop Time 15:08 Total Visit Minutes 32 Notes Talked with pt before start of tx. Total time 32 minutes, 23 minutes spent on tx session. Number of CRIMINOLOGY PROFESSOR Visits 1 Physical Therapy Visit Comments Patient Comments Pt agreeable to bed exercises and sitting on EOB. Therapy Pain Assessment Pain When Pain Assessed After Treatment Pain Present Pain Present Pain Reported Location Everywhere Intensity 10 Scale Used Numeric (1 - 10) L arm Pain Behaviors Facial Grimacing M4 PT-IP Mobility and Gait Start: 01/22/20 15:30 Freq: Status: Active Protocol: Document 01/23/20 14:36 [facility] (Rec: 01/23/20 15:32 [facility] [id number]) PT-Bed Mobility Assessment Supine to Sit Supine to Sit Moderate Assistance Sit to Supine Sit to Supine Maximum Assistance Scooting Scooting to Edge of Bed Moderate Assistance,Maximum Assistance Scooting Up and Down in Bed Dependent PT-Transfer Assessment Comments Mobility Comments Pt sat on EOB with cues for hand placement on bed rail and bed cane, then cued pt to reposition hands on bed with feet on floor. Pt was able to sit at EOB SBA for ~10minutes. Pt performed seated marches and knee flx/ext. Pt required Max A sit-supine and dependent to scoot to HOB x2. Left pt in bed with bed alarm on, call light within reach and all needs near. Gait Assessment Comments Gait Comments Pt not safe for gait at this time. Stair Climbing Assessment Comments Stair Climbing Comments Not appropriate. PT-Balance Assessment Sitting Balance and Reactions Static Sitting Balance Ability Fair Standing Balance and Reactions Static Standing Balance Ability Poor Dynamic Standing Balance Ability Poor Device Used 2 person assist M5 PT-IP Objective Assessments Start: 01/22/20 15:30 Freq: Status: Active Protocol: Document 01/22/20 16:31 LRN (Rec: 01/22/20 16:57 LRN [id number]) Orientation Orientation/Cognition Level of Alertness Alert Orientation Name,Situation Language Function Ability Garbled Speech Safety Awareness Decreased Safety Awareness Gross Range of Motion Upper Extremity ROM Assessment Bilaterally Impaired Lower Extremity ROM Assessment Bilaterally Impaired Strength Upper Extremity Strength Assessment Left Impaired Lower Extremity Strength Assessment Bilaterally Impaired Comments Strength Comments Pt not able to perform knee ext in sitting. M6 PT-IP Treatment Start: 01/22/20 15:30 Freq: Status: Active Protocol: Document 01/23/20 14:36 [facility] (Rec: 01/23/20 15:32 [facility] [id number]) Physical Therapy Treatment Exercises Exercises Ankle Pumps,Quad Sets,Heel Slides,Seated Knee Flexion/ Extension M7 PT-IP Assessment and Plan Start: 01/22/20 15:30 Freq: Status: Active Protocol: Document 01/23/20 14:36 [facility] (Rec: 01/23/20 15:32 [facility] [id number]) PT Summary Assessment and Plan Summary Assessment Summary Pt continues to require SBA for seated balance at EOB. Pt requires cues for hand placement on bed to keep upright and had a slight lean to left as well as posterior lean. Pt was able to make needs known and follow simple instructions. Goals Bed Mobility Goal Independent Transfer Goal Independent Gait Goal Independent,Cane Gait Distance 50' Days to Meet Goals 2 Frequency of Treatment Frequency Of Treatment Twice a Day Treatment Plan Physical Therapy Treatment Plan Bed Mobility Training,Transfer Training,Gait Training, Therapeutic Exercise,Balance Retraining Other Recommendations and Next Treatment ambulation, standing balance/ Focus tolerance Recommendations To Nursing Amount of Assist Needed 2 Person Assist,Mechanical Lift Discharge Recommendations PT Discharge Recommendations SNF Rehab Equipment Needed for Home Before Possibly walker Discharge
--- NOTE | 2020-01-23 15:43 | PC.NURSE ---
Shift summary: Oriented X3. Flat affect, sarcastic sense of humor at times. Forgetful. Speech garbled, sometimes fairly easy to understand, other times incomprehensible. PT/Sam lift transfers. Q2H reposition in bed throughout the day. Waffle cushion in place under buttock, heels floated. Dr Martin from wound care saw patient's wounds (L hip, sacral) and was going to speak w/ Dr Hubbard and convey any orders/plan- Allevyn dressings over both sites for now. Was seen by AD TRAFFICKER and advanced to thin liquids, remains on mech. soft diet. Able to feed himself w/ set-up assist. Incontinent of urine, used bedpan for BM. Able to make needs known and use the call light. Light and belongings within reach, bed alarm active.
--- NOTE | 2020-01-23 18:23 | P.PN_ITS ---
Subjective Subjective Date Patient Seen: 01/23/20 Interval history: Dion Suresh is a 74-year-old homeless gentleman who is a poor and unreliable historian with past medical history significant for hypertension, hyperlipidemia, BPH status post TURP, urinary incontinence and probable P arkinson's disease who presented to the ED via EMS due to being cold. The patient is resting in bed and appears comfortable. The patient is well- known to me in is much more emaciated than his previous hospitalization. His speech is more garbled than previous admission as well. Patient is alert o riented to person and place. When asked what he did to his left hip he reports he fell multiple times but does not directly know what happened. He endorses pain related to left hip wound and buttock ulcer. He has no other complaints and denies headache, shortness of breath, chest pain, abdominal pain, nausea, vomiting, fever, chills, dysuria, or constipation. He is fixated on eating dinner. He is incontinent of urine but voiding without difficulty. He is incontinent of stool by choice and eliminating without difficulty. Continue Exam Vital Signs (past 8 hours): - 01/23/20 11:17 01/23/20 12:56 01/23/20 16:00 Temperature 97.7 F 98.6 F Pulse Rate 62 103 H Respiratory Rate 18 16 Blood Pressure 120/42 L 126/72 Pulse Oximetry 98 98 98 Oxygen Delivery Method Room Air Oxygen Flow Rate 0 Narrative Exam Narrative: General: Elderly emaciated gentleman lying in bed and in no acute distress, appears older than stated age, now garbled speech, odd tangential thinking but otherwise appropriately interactive. HEENT: Normocephalic, atraumatic. External ears without defect. Pupils equal, round, and reactive to light. Anicteric sclerae, moist conjunctivae, and no lid lag. Oropharynx free of erythema and cobble stoning with moist mucosa. Temporal wasting. Poor dentition Neck: Supple with full range of motion. No lymphadenopathy or thyromegaly. Cardiovascular: Heart sounds distant but appears to be regular rate and rhythm without murmurs, rubs, or gallops appreciated. Pulmonary: Clear to auscultation bilaterally with occasional scattered fine crackles. No wheezes or rhonchi. Normal respiratory effort with no use of accessory muscles. Abdomen: Soft, bowel sounds present, non-tender, non-distended. No suprapubic or CVA tenderness. No hepatosplenomegaly or masses appreciated. Umbilical hernia and several ventral hernias. Extremities: No clubbing, cyanosis, or edema. Muscle wasting of lower extremities more profound than previous hospitalization. Skin: Multiple abrasions and excoriations throughout all extremities. 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 4 cm right gluteal shear wound vs decubitus pressure ulceration. Neurological: Cranial nerves grossly intact. Garbled speech. Masked facies. Psychiatric: Alert and oriented to person and place. Cooperative. Mild dementi a with short-term memory recall deficit. Objective Labs Result Diagrams: 01/24/20 05:22 01/24/20 05:22 Labs: Laboratory Results - last 24 hr 01/22/20 01/23/20 01/23/20 10:05 00:40 05:11 WBC 14.3 H RBC 5.07 Hgb 15.3 Hct 46.2 MCV 91.1 MCH 30.2 MCHC 33.1 RDW 14.8 Plt Count 340 Neut % (Auto) 77.3 H Lymph % (Auto) 10.8 L [place] % (Auto) 11.2 Eos % (Auto) 0.1 L Baso % (Auto) 0.6 Neut # (Auto) 07632 H Lymph # (Auto) 1500 [place] # (Auto) 1600 H Eos # (Auto) 0 Baso # (Auto) 100 Sodium Potassium Chloride Carbon Dioxide BUN Creatinine Estimated GFR BUN/Creatinine Ratio Glucose Calcium Phosphorus Magnesium 2.6 H Total Bilirubin AST ALT Alkaline Phosphatase Total Protein Albumin Globulin Albumin/Globulin Ratio Urine Color Dark yellow Urine Appearance Sl cloudy Urine pH 5.0 Ur Specific [place] 1.020 Urine Protein 1+ H Urine Glucose (UA) Negative Urine Ketones Trace H Urine Occult Blood 3+ H Urine Nitrate Negative Urine Bilirubin 1+ H Ur Bilirubin Confirm Positive H Urine Urobilinogen 0.2 Ur Leukocyte Esterase Negative Urine RBC 30-100/hpf H Urine WBC 10-30/hpf H Ur Squamous Epith Cells 1-5 /hpf Urine Bacteria Moderate (10-30) H Urine Mucus 1+ H Ur Culture Indicated? Specimen cultured Nasal Screen MRSA (PCR) 02/25/20 02/25/20 05:11 16:55 WBC RBC Hgb Hct MCV MCH MCHC RDW Plt Count Neut % (Auto) Lymph % (Auto) [place] % (Auto) Eos % (Auto) Baso % (Auto) Neut # (Auto) Lymph # (Auto) [place] # (Auto) Eos # (Auto) Baso # (Auto) Sodium 159 H* Potassium 3.3 L Chloride 127 H* Carbon Dioxide 20 L BUN 49 H Creatinine 1.30 H Estimated GFR 54.1 L BUN/Creatinine Ratio 37.7 H Glucose 123 H Calcium 9.3 Phosphorus 3.8 H Magnesium Total Bilirubin 0.5 AST 108 H ALT 64 H Alkaline Phosphatase 80 Total Protein 6.9 Albumin 3.4 L Globulin 3.5 Albumin/Globulin Ratio 1.0 Urine Color Urine Appearance Urine pH Ur Specific [place] Urine Protein Urine Glucose (UA) Urine Ketones Urine Occult Blood Urine Nitrate Urine Bilirubin Ur Bilirubin Confirm Urine Urobilinogen Ur Leukocyte Esterase Urine RBC Urine WBC Ur Squamous Epith Cells Urine Bacteria Urine Mucus Ur Culture Indicated? Nasal Screen MRSA (PCR) Negative for mrsa Assessment & Plan Assessment & Plan narrative: Dion Suresh is a 74-year-old homeless gentleman who is a poor and unreliable historian with past medical history significant for hypertension, hyperlipidemia, BPH status post TURP, urinary incontinence and probable Par kinson's disease who presented to the ED via EMS due to being cold. 1. Acute infected left hip wound with possible organized hematoma and mild surrounding cellulitis, present on admission. Active. -Patient has developed a large infected wound with black eschar and possible organized hematoma to left hip. Surrounding skin is mildly cellulitic in appearance with redness and warmth. No drainage noted. -Right hip x-ray shows no evidence of osteomyelitis. -Received ciprofloxacin 500 mg PO in ED. Continue ceftriaxone 2 g IV daily. -Consulted wound care for evaluation and treatment. We appreciate Dr. Romo's time and care of the patient -Consulted general surgery, Dr. Jennings, for possible wound debridement. NPO at midnight. 2. Acute severe dehydration, present on admission. Improving. -Patient presented clinically dehydrated with dry cracked lips, dry oral mucous membranes, delayed capillary refill, and skin tenting. -Resultant mild transaminitis with increase in AST from 28 to 172 and increase in ALT from 16 to 78. Normal bili and alk-phos. -Resultant hypernatremia at 158. Received 1 L of 0.45% normal saline in the ED and continue 0.45% normal saline at 125 mL/hour. Continue to monitor sodium level and replete as necessary. -Resultant hypokalemia at 3.3. Received potassium chloride 40 mEq IV x1. Continue to monitor potassium level and replete as necessary. 3. Right gluteal shear wound versus pressure ulceration, acute on chronic, present on admission. Stable. -Patient has 4 cm shear wound vs decubitus pressure ulceration on right gluteus that does not appear infected. -Continue wound care and perform frequent turns/repositioning every 2 hours. 4. Acute on chronic severe protein calorie malnutrition, present on admission. Stable. -Related to homelessness and scarcity and inability to obtain nourishment in conjunction with chronic debility as below. -BMI has further decreased from 20.9 to 18.1. -Consulted dietitian and we appreciate her time, recommendations and resources. 5. Acute on chronic debility, deconditioning and failure to thrive, present on admission. Stable and improved. -Patient has known progressive worsening generalized weakness, gait instability, and deconditioning (secondary to acute on chronic severe protein calorie malnutrition and muscle loss with probable Parkinson's disease and recurrent UTIs). -Previously consulted palliative Care please see Nica ARIAS's note on 01/05/2020. Plan to follow-up with Nica ARIAS regarding patient. Patient has not followed up as recommended with resources provided. -Consulted [facility] for short and long-term care placement. 6. Probable Parkinson's disease, chronic, present on admission. Stable. -Unclear diagnosis but patient does have and neurology at [facility] started patient on carbidopa/levodopa for which the patient tolerated well. -Patient with extremity rigidity without cogwheeling or tremor. -Continue carbidopa/levodopa 1 tab 3 times daily. 7. Hyperlipidemia, chronic, present on admission. Stable. -Continue home aspirin 81 mg daily and atorvastatin 40 mg daily at bedtime. 8. History of hypertension. -Hypertension not in evident on multiple hospital admissions and ED visits. Patient is not medically treated and takes no antihypertensives and. 9. BPH status post TURP with urinary incontinence, chronic, present on admission. Stable. -Continue oxybutynin 2.5 mg 3 times daily and tamsulosin 0.4 mg daily at bedtime. Code status: Full code VTE prophylaxis: SQ Heparin Disposition: Patient remains hospitalized pending surgical evaluation and treatment of infected left hip wound. Patient undoubtedly will need assisted facility for rehabilitation and long-term care thereafter if available and have consulted [facility] and palliative care. Quality VTE Deep Vein Thrombosis/Pulmonary Embolism Present on Admission: No
--- NOTE | 2020-01-23 18:32 | PM.CN ---
History of Present Illness Consult details Date Patient Seen: 01/23/20 Time Patient Seen: 18:32 Chief complaint: Cold Reason for consult: Ulcer of her hip Requesting provider: Annie Hubbard Narrative: Patient is a gentlema admitted to the hospital who has an ulcer over his left hip. Patient states that he has fallen over and over again and thinks that is how this developed. Is homeless and apparently at least at 1 point lived in his car. He has been in the emergency room and hospitalized apparently multiple times. He admits to all of that. He has been seen in the past for possible palliative care. He is not the best historian and even when he answers questions appropriately is difficult to understand Meds Home Medications and Allergies Home Medications Medication Instructions Recorded Confirmed Type Adult Diapers #30 each 08/10/18 01/22/20 Rx DISABLED PARKING PLACARD #1 ea 09/27/18 01/22/20 Rx ergocalciferol (vitamin D2) 1,250 50,000 unit PO QWEEK #4 cap 06/28/19 01/22/20 Rx mcg (50,000 unit) capsule atorvastatin 40 mg tablet 40 mg PO BEDTIME #90 tab 11/07/19 01/22/20 Rx tamsulosin 0.4 mg capsule 0.4 mg PO BEDTIME #90 cap 11/07/19 01/22/20 Rx carbidopa-levodopa 1 tab PO TID 01/02/20 01/22/20 History oxybutynin chloride 2.5 mg PO TID 01/02/20 01/22/20 History aspirin 81 mg PO DAILY #30 tab 01/06/20 01/22/20 Rx ciprofloxacin HCl 500 mg PO BID #20 tab 01/22/20 Rx Allergies Allergy/AdvReac Type Severity Reaction Status Date / Time No Known Drug Allergies Allergy Verified 11/16/19 12:22 Review of Systems Review of Systems Narrative: Patient is unaware of having any heart attack. He denies a cough for cold at this time. He does not have the best of teeth. He is able to swallow without difficulty. He states that he is an alcoholic but his last drink was over 20 years ago. He has never smoked. Patient states he has had multiple hernias and abdominal operations. He says he has no control over his urinary system. He states that he is weak and falls frequently. Exam Vital Signs (past 8 hours): - 01/23/20 11:17 01/23/20 12:56 01/23/20 16:00 Temperature 97.7 F 98.6 F Pulse Rate 62 103 H Respiratory Rate 18 16 Blood Pressure 120/42 L 126/72 Pulse Oximetry 98 98 98 Oxygen Delivery Method Room Air Oxygen Flow Rate 0 Narrative Exam Narrative: Cooperative gentleman. Disheveled looking. Eyes no evidence of icterus. Conjunctiva are pink. Oral mucosa is dry. Teeth are discolored. There are no nodes in the neck or supraclavicular areas. Trachea is midline mobile. He is unshaven. His lungs are clear to auscultation. No rales or rhonchi. Heart irregularly irregular. I do not appreciate a murmur or gallop. His abdomen is soft. Abdominal wall is without much musculature. There are multiple hernias and scars. Hernias reducible. There is no tenderness. Patient has a black eschar over his left hip. It measures approximately 10 x 5 cm. The surface is dry and shiny but underneath it is soft and mobile. The edges are slightly reddened. It is tender to palpation at the edges. His impossible to tell how deep it goes but I suspected is not far from the joint. Objective Labs Result Diagrams: 01/23/20 05:11 01/23/20 05:11 Labs: Laboratory Results - last 24 hr 01/22/20 01/23/20 01/23/20 10:05 00:40 05:11 WBC 14.3 H RBC 5.07 Hgb 15.3 Hct 46.2 MCV 91.1 MCH 30.2 MCHC 33.1 RDW 14.8 Plt Count 340 Neut % (Auto) 77.3 H Lymph % (Auto) 10.8 L [place] % (Auto) 11.2 Eos % (Auto) 0.1 L Baso % (Auto) 0.6 Neut # (Auto) 58555 H Lymph # (Auto) 1500 [place] # (Auto) 1600 H Eos # (Auto) 0 Baso # (Auto) 100 Sodium Potassium Chloride Carbon Dioxide BUN Creatinine Estimated GFR BUN/Creatinine Ratio Glucose Calcium Phosphorus Magnesium 2.6 H Total Bilirubin AST ALT Alkaline Phosphatase Total Protein Albumin Globulin Albumin/Globulin Ratio Urine Color Dark yellow Urine Appearance Sl cloudy Urine pH 5.0 Ur Specific [place] 1.020 Urine Protein 1+ H Urine Glucose (UA) Negative Urine Ketones Trace H Urine Occult Blood 3+ H Urine Nitrate Negative Urine Bilirubin 1+ H Ur Bilirubin Confirm Positive H Urine Urobilinogen 0.2 Ur Leukocyte Esterase Negative Urine RBC 30-100/hpf H Urine WBC 10-30/hpf H Ur Squamous Epith Cells 1-5 /hpf Urine Bacteria Moderate (10-30) H Urine Mucus 1+ H Ur Culture Indicated? Specimen cultured Nasal Screen MRSA (PCR) 01/23/20 01/23/20 05:11 16:55 WBC RBC Hgb Hct MCV MCH MCHC RDW Plt Count Neut % (Auto) Lymph % (Auto) [place] % (Auto) Eos % (Auto) Baso % (Auto) Neut # (Auto) Lymph # (Auto) [place] # (Auto) Eos # (Auto) Baso # (Auto) Sodium 159 H* Potassium 3.3 L Chloride 127 H* Carbon Dioxide 20 L BUN 49 H Creatinine 1.30 H Estimated GFR 54.1 L BUN/Creatinine Ratio 37.7 H Glucose 123 H Calcium 9.3 Phosphorus 3.8 H Magnesium Total Bilirubin 0.5 AST 108 H ALT 64 H Alkaline Phosphatase 80 Total Protein 6.9 Albumin 3.4 L Globulin 3.5 Albumin/Globulin Ratio 1.0 Urine Color Urine Appearance Urine pH Ur Specific [place] Urine Protein Urine Glucose (UA) Urine Ketones Urine Occult Blood Urine Nitrate Urine Bilirubin Ur Bilirubin Confirm Urine Urobilinogen Ur Leukocyte Esterase Urine RBC Urine WBC Ur Squamous Epith Cells Urine Bacteria Urine Mucus Ur Culture Indicated? Nasal Screen MRSA (PCR) Negative for mrsa Assessment & Plan Assessment & Plan narrative: Patient has a necrotic ulcer that probably needs debrided over his left hip. He has just finished eating dinner so this will have to wait until tomorrow. Additionally his electrolytes are quite abnormal and his heart may be in new onset AFib since I do not see any record of a prior EKG or mention of it. It is possible this is transient or it could be something like bigeminy or trigeminy. Will make NPO. Will discuss electrolyte correction with medical colleagues. Will obtain an EKG to see if anything needs to be done in that regard. Patient is a patient with Parkinson's and his medication should continue. Continue broad-spectrum antibiotics and in fact will place him on Zosyn prior to the debridement. Patient has a urine loaded with white blood cells but his nitrite and leukocyte esterase are negative. Given his chronic urinary symptoms is may not be indicative of an infection. Patient of perianal Aundrea has elevated lipids and is on medication for same. Overall I suspect patient will do poorly with this debridement given his homeless status and lack of support. Unfortunately a.m. not certain that observation is a viable alternative.
[2020-01-23] MEDS: PIPERACILLIN-TAZO 3.375 GM/50 ML FROZ.PIGGY IV (20:44)
[2020-01-23] MEDS: TAMSULOSIN 0.4 MG CAPSULE PO (22:21)
[2020-01-23] MEDS: ATORVASTATIN 20 MG TABLET 40 MG PO (22:21)
--- NOTE | 2020-01-23 23:20 | PM.EVENT ---
Event Note Date Patient Seen: 01/23/20 Time Patient Seen: 20:41 Event Note: Update on patient status: The patient has been evaluated by Dr. Jennings. On examination he appreciated 8 irregularly irregular cardiac rhythm previously found to be regular on admission. The patient is without new complaints and is oriented x2 with difficulty articulating however denies chest pain or shortness of breath. Most recent potassium was 3.3 this morning that was repleted with 40 mEq orally Twelve lead EKG has been ordered: Patient found to be in sinus rhythm with PACs and PVCs with anterior infarct age undetermined and T-wave abnormality laterally. Ordered repeat labs tonight including a BMP, magnesium level and TSH.
--- NOTE | 2020-01-23 23:46 | PC.NURSE ---
Evening note: Angel awake, alert, speech much clearer than yesterday, can make needs & concerns known to staff. Oriented to place & situation, forgetful to events/specifics. VS stable. 1/2 NS continues to infuse at 125 ml/hour with no difficulty. Tolerating food tonight, asking for ice cream at bedtime. Dr Martin & Dr Hubbard in room to assess patient's skin & wounds. Dr Jnenings in shortly afterwards. New orders given to plan for wound debridement tomorrow, pt to be NPO after midnight. Patient has been repositioned often tonight, q1-2 hours, waffle cushion under his left hip. Drsgs to left hip changed, site cleansed with NS, covered with 2 Allevyn gentle border drsgs. Wound measured at 11.5 x 9.5 cm. Fall precautions in place, alarm active for safety. EKG done, rhythm abnormal, tele placed, rhythm is wandering Atrial pacemaker.
[2020-01-24] VITALS (16 sets, daily range): BP systolic 86–124; BP diastolic 52–82; PULSE 62–117; RESP 12–20; TEMP 36.2–37.5; O2SAT 94–99
--- NOTE | 2020-01-24 | PATH_ITS ---
[facility] Accession Number: [id number] . 01 Material submitted: . hip - LEFT HIP ULCER: TISSUE/ESCHAR . 01 Clinical history: . COLD . 01 Diagnosis: Skin and Subcutaneous Tissue, Left Hip, Debridement: Ulceration with necrosis, granulation tissue formation, hemorrhage, acute inflammation, and superficial bacterial organisms (cocci in clusters). . Note: Clinicopathologic correlation is advised. MRV 01/26/2020 1157 Local . 01 Electronically signed: . Deanna Hartley MD, Dermatopathologist NPI- [id number] . 01 Gross description: . Received in formalin, labeled with the patient's name and left hip ulcer, is a 34 gram, 8.0 x 6.0 x 2.5 cm aggregate of multiple irregular fragments of dark brown and dusky fragments of skin and yellow-sawyer lobulated subcutaneous tissue. Carpet Yarn Winder Operator sections are submitted. Summary of sections: A1 - five pieces. ([id number]) /MRV 01/25/2020 1523 Local . 01 Pathologist provided ICD-10: L98.499 . 01 CPT . 870961 Performed at: [address] [facility] [address], [place], [place] [id number] MD Anastacio Holder MD Phone: [phone]
[2020-01-24] MEDS: ACETAMINOPHEN 650 MG SUPP PR (00:02)
[2020-01-24] MEDS: CEFTRIAXONE 2 GM/50 ML FROZ.PIGGY IV (00:02)
[2020-01-24 00:04] LABS: BUN Creatinine Ratio 33.1 (6-22); Blood Urea Nitrogen 43 mg/dL (9-20); Calcium 8.4 mg/dL (8.4-10.2); Carbon Dioxide 23 mmol/L (22-32); Chloride 120 mmol/L (98-107); Estimated Glomerular Filt Rate 54.1 mL/min (>60); Glucose 119 mg/dL (80-110); HEMOLYSIS < 15 (0-50); Magnesium 2.1 mg/dL (1.6-2.3); Potassium 3.3 mmol/L (3.4-5.1); Sodium 150 mmol/L (137-145)
[2020-01-24] MEDS: POTASSIUM CHLORIDE 20 MEQ/15 ML UDC 40 MEQ PO (01:40)
[2020-01-24 05:37] LABS: Add Manual Diff / Slide Review NO; Basophils Absolute Auto 100 /uL (0-100); Basophils Percent Auto 0.6 % (0-2); Eosinophils Absolute Auto 100 /uL (0-450); Eosinophils Percent Auto 1.1 % (2-4); Hematocrit 39.1 % (41-53); Hemoglobin 12.9 g/dL (13.5-17.5); Lymphocytes Absolute Auto 1900 /uL (1100-4500); Lymphocytes Percent Auto 16.5 % (25-40); Mean Corpuscular Hemoglobin 30.1 PG (26-34); Mean Corpuscular Volume 91.2 fL (80-100); Monocytes Absolute Auto 1000 /uL (0-900); Monocytes Percent Auto 8.5 % (3-14); Neutrophils Absolute Auto 8600 /uL (1500-7000); Neutrophils Percent Auto 73.3 % (50-75); Platelet Count 239 X10^3/uL (150-400); Red Blood Cell Count 4.29 X10^6/uL (4.5-5.9); Red Cell Distribution Width 14.2 % (11.6-14.8); White Blood Cell Count 11.7 X10^3/uL (4.5-11.0)
[2020-01-24 05:46] LABS: Alanine Aminotransferase 16 IU/L (<50); Albumin 2.6 g/dL (3.5-5.0); Albumin Globulin Ratio 0.9 (1.0-2.8); Alkaline Phosphatase 62 U/L (38-126); Aspartate Aminotransferase 61 IU/L (17-59); BUN Creatinine Ratio 32.5 (6-22); Bilirubin Total 0.3 mg/dL (0.2-1.3); Blood Urea Nitrogen 39 mg/dL (9-20); Calcium 8.3 mg/dL (8.4-10.2); Carbon Dioxide 21 mmol/L (22-32); Estimated Glomerular Filt Rate 59.3 mL/min (>60); Glucose 116 mg/dL (80-110); HEMOLYSIS < 15 (0-50); Potassium 3.6 mmol/L (3.4-5.1); Sodium 149 mmol/L (137-145); Total Protein 5.6 g/dL (6.3-8.2)
[2020-01-24 05:52] LABS: Chloride 121 mmol/L (98-107)
[2020-01-24 06:48] LABS: Troponin I 0.016 ng/mL (0.01-0.034)
[2020-01-24] MEDS: SODIUM CHLORIDE 0.45% 1,000 ML 125 ML IV (06:50)
--- NOTE | 2020-01-24 08:01 | PT.IPTN ---
Current Diagnoses Cellulitis, unspecified (01/22/20) Pressure ulcer of unspecified hip, unspecified stage (01/22/20) Surgery Performed Operation Date: 01/24/20 12:30 Actual Procedures p Incision and Drainage Hip(Left) - Zev Mcgregor MD Physical Therapy Treatment Note M2 PT-IP Current Condition Start: 01/22/20 15:30 Freq: Status: Active Protocol: Document 01/22/20 16:31 LRN (Rec: 01/22/20 16:57 LRN [id number]) Physical Therapy Current Condition Current Condition Evaluation Date 01/22/20 Treatment Diagnosis Environmental exposure Onset Date Admit to ED 01/22/20. Precautions Other Precautions Not safe to stand & ambulate independent. Weight Bearing Status Weight Bearing Status Full Weight Bearing M3 PT-IP Subjective Start: 01/22/20 15:30 Freq: Status: Active Protocol: Document 01/24/20 07:35 SP (Rec: 01/24/20 09:14 SP [id number]) Subjective Physical Therapy Visit Type Type Treatment Note Visit Start Time 07:35 Visit Stop Time 08:01 Total Visit Minutes 26 Physical Therapy Visit Comments Patient Comments Pt agreeable to mobility to EOB and attempt to get into chair. Therapy Pain Assessment Pain Present Pain Present Denied Pain M4 PT-IP Mobility and Gait Start: 01/22/20 15:30 Freq: Status: Active Protocol: Document 01/24/20 07:35 SP (Rec: 01/24/20 09:14 SP [id number]) PT-Bed Mobility Assessment Rolling Type of Rolling Roll to Left Supine to Sit Supine to Sit Moderate Assistance,1 Person Assistance,Head of Bed Elevated,Bedrails Sit to Supine Sit to Supine Maximum Assistance,1 Person Assistance,Head of Bed Elevated Scooting Scooting to Edge of Bed Minimal Assistance PT-Transfer Assessment Sit to and From Stand Sit to and from Stand Maximum Assistance,1 Person Assistance,Use of Upper Extremities Equipment Transfer Assistive Device Gait Belt,Front Wheeled Walker Transfers Transfer Destination Chair Transfer Technique Squat Pivot Transfer Ability Level of Assist Maximum Assistance,1 Person Assistance,Use of Upper Extremities Comments Mobility Comments Pt inclined in bed when arrived. Reported mouth very dry and wanting a drink, educated patient that is having a procedure today and is NPO since midnight last night and verbalized understanding and willing to work to get up in chair. Pt required Mod-Max A to log roll to L with SHINNECOCK to reach with RUE to bed rail while for self support, min A for BLE to EOB with knees bent. with HOB elevated to 30deg instructed to use RUE to push from bed while provided Max A to transition to sitting. Pt was able to scoot to EOB using BUE with Shiva with cuing for trunk forward to decrease retro ext and scoot forward until BLE support on floor. Max A to sit to stand at EOB usign FWW and max cuing for leaning COG over RASHMI but strong retro lean, brief stance. Pt was able to squat pivot bed to chair using RUE press up from bed and assist with education reaching across to opposite side of chair with cuign for trunk hip hinge forward, therapist support BLE anteriorly to prevent buckling and Max A to complet tranition to chair. Pt required Mod A to scoot back inchair with cuing for BUE WB on chair arms for self performance and good demonstration. Pt was up in chair with call light and all needs in reach. PATIENT TRANSITION SPECIALIST could not find chair alarm for patient and notified nursing staff and discussed pt is a fall risk, assist progress during tx needed Max A 1 retro ext, squat pivot transfer. Gait Assessment Comments Gait Comments Pt not safe for gait at this time. Stair Climbing Assessment Comments Stair Climbing Comments not appropriate. PT-Balance Assessment Sitting Balance and Reactions Static Sitting Balance Ability Fair Dynamic Sitting Balance Ability Poor Standing Balance and Reactions Static Standing Balance Ability Poor Dynamic Standing Balance Ability Poor Device Used 2 person assist M5 PT-IP Objective Assessments Start: 01/22/20 15:30 Freq: Status: Active Protocol: Document 01/22/20 16:31 LRN (Rec: 01/22/20 16:57 LRN [id number]) Orientation Orientation/Cognition Level of Alertness Alert Orientation Name,Situation Language Function Ability Garbled Speech Safety Awareness Decreased Safety Awareness Gross Range of Motion Upper Extremity ROM Assessment Bilaterally Impaired Lower Extremity ROM Assessment Bilaterally Impaired Strength Upper Extremity Strength Assessment Left Impaired Lower Extremity Strength Assessment Bilaterally Impaired Comments Strength Comments Pt not able to perform knee ext in sitting. M6 PT-IP Treatment Start: 01/22/20 15:30 Freq: Status: Active Protocol: Document 01/23/20 14:36 CLB (Rec: 01/23/20 15:32 CLB [id number]) Physical Therapy Treatment Exercises Exercises Ankle Pumps,Quad Sets,Heel Slides,Seated Knee Flexion/ Extension M7 PT-IP Assessment and Plan Start: 01/22/20 15:30 Freq: Status: Active Protocol: Document 01/24/20 07:35 SP (Rec: 01/24/20 12:24 SP [id number]) PT Summary Assessment and Plan Potential Rehabilitation Potential Fair Status of Condition at Evaluation Evolving Summary Impairments ROM,Strength,Balance, Coordination,Tone,Cognition, Bed Mobility,Transfers,Gait, Activity Tolerance Assessment Summary See mobility comments. Max A x1 bed mobility, transfer squat pivot transfer bed > chair. Pt continues to require SBA for seated balance at EOB . Pt requires cues for hand placement on bed to keep upright and had a slight lean to left as well as posterior lean. Pt was able to make needs known and follow simple instructions. Recommending continued acute PT to porgress in strength for transfers and bed mobility, with SNF as a DC plan at this time to increase strength to progress in functional independence. Goals Bed Mobility Goal Independent Transfer Goal Independent Gait Goal Independent,Cane Gait Distance 50' Days to Meet Goals 2 Frequency of Treatment Frequency Of Treatment Twice a Day Treatment Plan Physical Therapy Treatment Plan Bed Mobility Training,Transfer Training,Gait Training, Therapeutic Exercise,Balance Retraining Other Recommendations and Next Treatment ambulation, standing balance/ Focus tolerance Recommendations To Nursing Amount of Assist Needed 2 Person Assist Discharge Recommendations PT Discharge Recommendations SNF Rehab Equipment Needed for Home Before Possibly walker Discharge
[2020-01-24] MEDS: POTASSIUM CHLORIDE 20 MEQ TAB 40 MEQ PO (09:19)
[2020-01-24] MEDS: ASPIRIN EC 81 MG TABLET PO (09:20)
[2020-01-24] MEDS: CARBIDOPA-LEVODOPA 25/100 TABLET 1 EACH PO ×3 (09:20→21:27)
[2020-01-24] MEDS: OXYBUTYNIN 5 MG TABLET 2.5 MG PO ×3 (09:20→21:29)
[2020-01-24] MEDS: HEPARIN 5,000 UNIT/ML VIAL 5000 UNIT SUBCUT ×2 (09:26→21:28)
--- NOTE | 2020-01-24 09:30 | PM.PN.1 ---
Subjective Subjective Date Patient Seen: 01/24/20 Interval history: Dion Suresh is a 74-year-old homeless gentleman who is a poor and unreliable historian with past medical history significant for hypertension, hyperlipidemia, BPH status post TURP, urinary incontinence and probable Parkinson's disease who presented to the ED via EMS due to being cold. The patient is resting in bed and appears comfortable. He endorses pain in his left heel. He has no other complaints but it is difficult to understand him as his language is garbled. He denies headache, chest pain, shortness of breath nausea or vomiting. His surrogate decision maker Jean-Claude Jean-Claude was here and discussed his care in detail. The patient is scheduled to go to OR today to debride left hip ulcer/wound. Exam Vital Signs (past 8 hours): - 01/24/20 03:00 01/24/20 08:00 Temperature 98.7 F 98.5 F Pulse Rate 70 62 Respiratory Rate 20 18 Blood Pressure 124/82 106/63 Pulse Oximetry 99 99 Oxygen Delivery Method Room Air Oxygen Flow Rate 0 Narrative Exam Narrative: General: Elderly emaciated gentleman lying in bed and in no acute distress, appears older than stated age, now garbled speech, odd tangential thinking but otherwise appropriately interactive. HEENT: Normocephalic, atraumatic. External ears without defect. Pupils equal, round, and reactive to light. Anicteric sclerae, moist conjunctivae, and no lid lag. Oropharynx free of erythema and cobble stoning with moist mucosa. Temporal wasting. Poor dentition Neck: Supple with full range of motion. No lymphadenopathy or thyromegaly. Cardiovascular: Heart sounds distant but appears to be regular rate and rhythm without murmurs, rubs, or gallops appreciated. Pulmonary: Clear to auscultation bilaterally with occasional scattered fine crackles. No wheezes or rhonchi. Normal respiratory effort with no use of accessory muscles. Abdomen: Soft, bowel sounds present, non-tender, non-distended. No suprapubic or CVA tenderness. No hepatosplenomegaly or masses appreciated. Umbilical hernia and several ventral hernias. Extremities: No clubbing, cyanosis, or edema. Muscle wasting of lower extremities more profound than previous hospitalization. Boggy left heel with small wound on plantar aspect of left heel. Skin: Multiple abrasions and excoriations throughout all extremities. Left hip with large 10 x 5 cm appears to be traumatic wound with black eschar possibly sales representative meats of organized hematoma that is soft and mobile underneath with mild surrounding erythema, edema and tenderness to palpation. 4 cm right gluteal shear wound vs decubitus pressure ulceration. Neurological: Cranial nerves grossly intact. Garbled speech. Masked facies. Psychiatric: Alert and oriented to person and place. Cooperative. Mild dementia with short-term memory recall deficit. Objective Labs Result Diagrams: 01/24/20 05:22 01/24/20 05:22 Labs: Laboratory Results - last 24 hr 01/23/20 01/23/20 01/23/20 16:55 23:37 23:37 WBC RBC Hgb Hct MCV MCH MCHC RDW Plt Count Neut % (Auto) Lymph % (Auto) Plumas % (Auto) Eos % (Auto) Baso % (Auto) Neut # (Auto) Lymph # (Auto) [place] # (Auto) Eos # (Auto) Baso # (Auto) Sodium 150 H Potassium 3.3 L Chloride 120 H Carbon Dioxide 23 BUN 43 H Creatinine 1.30 H Estimated GFR 54.1 L BUN/Creatinine Ratio 33.1 H Glucose 119 H Calcium 8.4 Magnesium 2.1 Total Bilirubin AST ALT Alkaline Phosphatase Troponin I Total Protein Albumin Globulin Albumin/Globulin Ratio TSH 0.80 D Nasal Screen MRSA (PCR) Negative for mrsa 01/24/20 01/24/20 01/24/20 05:22 05:22 05:22 WBC 11.7 H RBC 4.29 L Hgb 12.9 L Hct 39.1 L MCV 91.2 MCH 30.1 MCHC 33.0 RDW 14.2 Plt Count 239 Neut % (Auto) 73.3 Lymph % (Auto) 16.5 L Plumas % (Auto) 8.5 Eos % (Auto) 1.1 L Baso % (Auto) 0.6 Neut # (Auto) 8600 H Lymph # (Auto) 1900 Plumas # (Auto) 1000 H Eos # (Auto) 100 Baso # (Auto) 100 Sodium 149 H Potassium 3.6 Chloride 121 H Carbon Dioxide 21 L BUN 39 H Creatinine 1.20 Estimated GFR 59.3 L BUN/Creatinine Ratio 32.5 H Glucose 116 H Calcium 8.3 L Magnesium Total Bilirubin 0.3 AST 61 H ALT 16 Alkaline Phosphatase 62 Troponin I 0.016 Total Protein 5.6 L Albumin 2.6 L Globulin 3.0 Albumin/Globulin Ratio 0.9 L TSH Nasal Screen MRSA (PCR) Assessment & Plan Assessment & Plan narrative: Dion Suresh is a 74-year-old homeless gentleman who is a poor and unreliable historian with past medical history significant for hypertension, hyperlipidemia, BPH status post TURP, urinary incontinence and probable Parkinson's disease who presented to the ED via EMS due to being cold. 1. Acute infected left hip wound with possible organized hematoma and mild surrounding cellulitis, present on admission. Active. -Patient has developed a large infected wound with black eschar and possible organized hematoma to left hip. Surrounding skin is mildly cellulitic in appearance with redness and warmth. No drainage noted. -Right hip x-ray shows no evidence of osteomyelitis. -Received ciprofloxacin 500 mg PO in ED. Continue ceftriaxone 2 g IV daily. -Consulted wound care for evaluation and treatment. We appreciate Dr. Romo's time and care of the patient -Consulted general surgery for possible wound debridement and Dr. Mcgregor plans to take patient to the OR later this afternoon. Patient has been NPO since midnight. 2. Acute severe dehydration, present on admission. Improving. -Patient presented clinically dehydrated with dry cracked lips, dry oral mucous membranes, delayed capillary refill, and skin tenting. -Resultant mild transaminitis with increase in AST from 28 to 172 and increase in ALT from 16 to 78. Normal bili and alk-phos. -Resultant hypernatremia at 158. Received 1 L of 0.45% normal saline in the ED and continue 0.45% normal saline decreased from 125 to 100 mL/hour. Continue to monitor sodium level and adjust IV fluids as necessary. Sodium level close to normal now 149. 3. Acute hypokalemia, present on admission. Active. -Likely secondary to profound dehydration and diarrhea. -Initial potassium level 3.3. Received potassium chloride 40 mEq IV x1 and 40 mEq PO liquid x2. Continue to monitor potassium level and replete as necessary. Potassium level normalized at 3.6. Received another 40 mEq PO x 1. 4. Acute on chronic severe protein calorie malnutrition, present on admission. Stable. -Related to homelessness and scarcity and inability to obtain nourishment in conjunction with chronic debility as below. -BMI has further decreased from 20.9 to 18.1. -Consulted dietitian and we appreciate her time, recommendations and resources. 5. Acute on chronic debility, deconditioning and failure to thrive, present on admission. Stable and improved. -Patient has known progressive worsening generalized weakness, gait instability, and deconditioning (secondary to acute on chronic severe protein calorie malnutrition and muscle loss with probable Parkinson's disease and recurrent UTIs). -Previously consulted palliative Care please see Nica ARIAS's note on 01/05/2020. Plan to follow-up with Nica ARIAS regarding patient. Patient has not followed up as recommended with resources provided. -Consulted [facility] for short and long-term care placement. 6. Right gluteal shear wound versus pressure ulceration, acute on chronic, present on admission. Stable. -Patient has 4 cm shear wound vs decubitus pressure ulceration on right gluteus that does not appear infected. -Continue wound care and perform frequent turns/repositioning every 2 hours. 7. Probable Parkinson's disease, chronic, present on admission. Stable. -Unclear diagnosis but patient does have and neurology at [facility] started patient on carbidopa/levodopa for which the patient tolerated well. -Patient with extremity rigidity without cogwheeling or tremor. -Continue carbidopa/levodopa 1 tab 3 times daily. 8. Hyperlipidemia, chronic, present on admission. Stable. -Continue home aspirin 81 mg daily and atorvastatin 40 mg daily at bedtime. 9. History of hypertension. -Hypertension not in evident on multiple hospital admissions and ED visits. Patient is not medically treated and takes no antihypertensives and. 10. BPH status post TURP with urinary incontinence, chronic, present on admission. Stable. -Continue oxybutynin 2.5 mg 3 times daily and tamsulosin 0.4 mg daily at bedtime. Code status: Full code VTE prophylaxis: SQ Heparin Disposition: Patient remains hospitalized pending surgical evaluation and treatment of infected left hip wound. Patient undoubtedly will need half-way facility for rehabilitation and long-term care thereafter if available and have consulted [facility] and palliative care. Quality VTE Deep Vein Thrombosis/Pulmonary Embolism Present on Admission: No
--- NOTE | 2020-01-24 10:23 | PM.CHAP ---
Pt. resting when I stopped by. Met with staff to encourage plan for placing pt in SNF or other safe environment. Yanick Atkinson [phone]
--- NOTE | 2020-01-24 12:26 | PC.NURSE ---
Patient picked up by surgery. Patient has been NPO except medications. Consent signed and in the chart.
--- NOTE | 2020-01-24 12:28 | PM.PREOP ---
Pre-operative Note Interval Note History & Physical reviewed/Exam performed by Physician: Yes Changes to H&P: No
[2020-01-24] MEDS: LACTATED RINGERS 1,000 ML 42 ML IV (12:32)
--- NOTE | 2020-01-24 13:19 | OT.IPNOTE ---
Pt is surgery now, therefore check on pt tomorrow for OT treatment.
--- NOTE | 2020-01-24 13:19 | PT-IP ANOTE ---
Pt out of room for surgical procedure.
--- NOTE | 2020-01-24 13:49 | PM.OP.1 ---
Operative Date/Time/Diagnoses Date of procedure: 01/24/20 Time of procedure: 13:49 Pre-op diagnosis: Decubitus ulcer left hip Post-op diagnosis: same Procedure & Clinicians Procedure: Excisional debridement of left hip Same procedure as scheduled: Yes Indications: Decubitus ulcer left hip Parkinson's Surgeon: Zev Mcgregor Click Yes if Unassisted: Yes Anesthesia Type: General Operative Notes Findings: Necrosis of the tissue to the level of the muscle Specimen(s): other (Left hip tissue) Estimated Blood Loss (mL): 10 Procedure in detail: Patient was brought to the operating and placed supine on the table. Bilateral lower extremity compression devices were applied. He was intubated with an endotracheal tube. He was then placed into the right lateral decubitus position. Time-out was performed ensure the correct patient procedure necessary equipment within the operating room. He was prepped and draped in sterile fashion. The necrotic soft tissue overlying the left hip was sharply debrided to the level of the muscle. The wound measures 9 x 9 cm. And bleeding healthy tissue was encountered at the base of the wound. Who a wound VAC was some applied. Emerged from anesthesia was extubated and transferred to recovery room in stable condition. Complications: none Post-operative Condition: stable Disposition: Acute Care
--- NOTE | 2020-01-24 13:56 | SLP.IPNOTE ---
Patient NPO for surgery today; therefore, no speech therapy today. ST to follow-up tomorrow.
--- NOTE | 2020-01-24 14:01 | SUR.PHASEI ---
Patient denies pain & nausea. Wound vac to suction. Patient has diffuse bruising/abrasions throughout body.
--- NOTE | 2020-01-24 15:41 | PC.NURSE ---
Patient received back from PACU, VSS, denies pain. Wound vac in place to left hip wound, at 125mmhg continuous therapy. Bottom and kami area cleansed, barrier cream and brief applied. Clean allevyn dressing applied to buttock wound. Patient states he is hungry and requesting coffee. Heels floated on pillow. IV fluids restarted as ordered. Bed alarm on for safety and call light within reach. Call and message placed to pacu to follow up on antibiotic order not administered on JAN. Evening shift nurse states she will follow up on this.
--- NOTE | 2020-01-24 15:55 | CM.DPC ---
DCP continued: EMR reviewed: ZEYNEP/DAVID Met with Alejandra Atkinson who stopped by CM office to disscuss patient placement into a SNF or another safe D/C plan. ZEYNEP/ DAVID is working on finding SNF to accept patient or a Swing bed option. Alejandra stated that he is available to help with D/C plan if transportation is needed Contact phone number is [phone]. ZEYNEP/RN Called [facility] and sent clinicals for there review. ZEYNEP/DAVID also sent clinicals to [facility] in [place] [phone] as well as to [facility] in [place] [phone]. ZEYNEP/RN spoke with patients Home and community services Yanick Bowie to discuss that patient is currently an Inpatient at . Yanick is working on finding long-term placement for patient but is hopeful that we can find a SNF to accept patient at D/C. ZEYNEP/DAVID called Jeaneth Weeks at [facility]#[phone] and discussed patient for a swing bed option. she said she doesn't have a bed today but might in a few days and will review patient for possible Swing bed placement. Clinicals faxed. ZEYNEP/David called [facility] about there Swing bed program. They currently have beds and are reviewing patient for possible placement- # [phone] CM department will continue to follow patient and placement options looking at D/C planning needs. Stacie Carrion RN
[2020-01-24] MEDS: SODIUM CHLORIDE 0.45% 1,000 ML 100 ML IV (19:01)
--- NOTE | 2020-01-24 20:56 | PC.NURSE ---
copious liquid BM. cleaned as best as possible without further exacerbating open wounds and fragile skin
[2020-01-24] MEDS: TAMSULOSIN 0.4 MG CAPSULE PO (21:27)
[2020-01-24] MEDS: ATORVASTATIN 20 MG TABLET 40 MG PO (21:28)
[2020-01-25] VITALS (10 sets, daily range): BP systolic 98–141; BP diastolic 51–70; PULSE 60–77; RESP 16–18; TEMP 36.3–37.4; O2SAT 97–98
[2020-01-25] MEDS: CEFTRIAXONE 2 GM/50 ML FROZ.PIGGY IV (00:39)
--- NOTE | 2020-01-25 05:08 | PC.NURSE ---
Pt alert and oriented x4. Slurred and mumbled speech. Wound vac to left hip running at 125mmhg. Buttock cleansed and barrier cream applied to wounds. Waffle cushion placed under patient. Turning patient q2 hours. Pt denies any pain. Incontinent to urine and stool. Pt has no complaints at this time.
[2020-01-25] MEDS: SODIUM CHLORIDE 0.45% 1,000 ML 100 ML IV (05:23)
[2020-01-25 08:03] LABS: Add Manual Diff / Slide Review NO; Basophils Absolute Auto 100 /uL (0-100); Basophils Percent Auto 1.2 % (0-2); Eosinophils Absolute Auto 300 /uL (0-450); Eosinophils Percent Auto 3.1 % (2-4); Hematocrit 37.9 % (41-53); Hemoglobin 12.5 g/dL (13.5-17.5); Lymphocytes Absolute Auto 1800 /uL (1100-4500); Lymphocytes Percent Auto 20.9 % (25-40); Mean Corpuscular HGB Conc 33.1 % (30-36); Mean Corpuscular Hemoglobin 30.6 PG (26-34); Mean Corpuscular Volume 92.4 fL (80-100); Monocytes Absolute Auto 600 /uL (0-900); Monocytes Percent Auto 6.4 % (3-14); Neutrophils Absolute Auto 6000 /uL (1500-7000); Neutrophils Percent Auto 68.4 % (50-75); Platelet Count 209 X10^3/uL (150-400); Red Cell Distribution Width 14.7 % (11.6-14.8); White Blood Cell Count 8.7 X10^3/uL (4.5-11.0)
[2020-01-25 08:13] LABS: Alanine Aminotransferase 11 IU/L (<50); Albumin 2.5 g/dL (3.5-5.0); Albumin Globulin Ratio 0.9 (1.0-2.8); Alkaline Phosphatase 63 U/L (38-126); Aspartate Aminotransferase 47 IU/L (17-59); Bilirubin Total 0.3 mg/dL (0.2-1.3); Blood Urea Nitrogen 30 mg/dL (9-20); Calcium 7.8 mg/dL (8.4-10.2); Carbon Dioxide 22 mmol/L (22-32); Chloride 120 mmol/L (98-107); Estimated Glomerular Filt Rate 45.9 mL/min (>60); Globulin 2.9 g/dL (1.7-4.1); Glucose 102 mg/dL (80-110); HEMOLYSIS < 15 (0-50); Potassium 3.9 mmol/L (3.4-5.1); Sodium 149 mmol/L (137-145); Total Protein 5.4 g/dL (6.3-8.2)
[2020-01-25 08:31] LABS: Procalcitonin < 0.05 ng/mL (<0.5)
--- NOTE | 2020-01-25 08:33 | P.PN_ITS ---
Subjective Subjective Date Patient Seen: 01/25/20 Interval history: Dion Suresh is a 74-year-old homeless gentleman who is a poor and unreliable historian with past medical history significant for hypertension, hyperlipidemia, BPH status post TURP, urinary incontinence and probable P arkinson's disease who presented to the ED via EMS due to being cold. The patient is resting in bed and appears comfortable. He complains of pain at his left hip. He otherwise has no complaints and denies headache, chest pain, shortness of breath, nausea, vomiting, fever, chills, dysuria, diarrhea or constipation. His garbled speech has improved with IV fluid hydration and reinstitution of his Parkinson's meds. He is incontinent but voiding and eliminating without difficulty. He is up with physical and occupational therapy. Exam Vital Signs (past 8 hours): - 01/25/20 00:40 01/25/20 01:00 01/25/20 03:02 Temperature 97.3 F L Pulse Rate 69 Respiratory Rate 16 Blood Pressure 108/57 L Pulse Oximetry 98 98 98 01/25/20 05:30 Temperature 98.3 F Pulse Rate 62 Respiratory Rate 18 Blood Pressure 98/52 L Pulse Oximetry 98 Oxygen Delivery Method Room Air Oxygen Flow Rate 0 Narrative Exam Narrative: General: Elderly emaciated gentleman lying in bed and in no acute distress, appears older than stated age, now garbled speech, odd tangential thinking but otherwise appropriately interactive. HEENT: Normocephalic, atraumatic. External ears without defect. Pupils equal, round, and reactive to light. Anicteric sclerae, moist conjunctivae, and no lid lag. Oropharynx free of erythema and cobble stoning with moist mucosa. Temporal wasting. Poor dentition Neck: Supple with full range of motion. No lymphadenopathy or thyromegaly. Cardiovascular: Heart sounds distant but appears to be regular rate and rhythm without murmurs, rubs, or gallops appreciated. Pulmonary: Clear to auscultation bilaterally with occasional scattered fine crackles. No wheezes or rhonchi. Normal respiratory effort with no use of accessory muscles. Abdomen: Soft, bowel sounds present, non-tender, non-distended. No suprapubic or CVA tenderness. No hepatosplenomegaly or masses appreciated. Umbilical hernia and several ventral hernias. Extremities: No clubbing, cyanosis, or edema. Muscle wasting of lower extremities more profound than previous hospitalizations. Boggy left heel with small wound on plantar aspect of left heel. Skin: Dry leathered skin. Multiple abrasions and excoriations throughout all extremities. Left hip with large 9 x 9 cm wound with black eschar status post debridement with wound vac in place and mild slightly increased post-op surrounding erythema, edema and tenderness to palpation. 4 cm right gluteal shear wound vs decubitus pressure ulceration does not appear infected now with Allevyn dressing in place C/D/I. Neurological: Cranial nerves grossly intact. Garbled speech improved. Masked facies. Psychiatric: Alert and oriented to person and place. Cooperative. Mild dementia with short-term memory recall deficit. Objective Labs Result Diagrams: 01/25/20 07:50 01/25/20 07:50 Labs: Laboratory Results - last 24 hr 01/25/20 01/25/20 01/25/20 07:50 07:50 07:50 WBC 8.7 RBC 4.10 L Hgb 12.5 L Hct 37.9 L MCV 92.4 MCH 30.6 MCHC 33.1 RDW 14.7 Plt Count 209 Neut % (Auto) 68.4 Lymph % (Auto) 20.[address] [place] % (Auto) 6.4 Eos % (Auto) 3.1 Baso % (Auto) 1.2 Neut # (Auto) 6000 Lymph # (Auto) 1800 [place] # (Auto) 600 Eos # (Auto) 300 Baso # (Auto) 100 Sodium 149 H Potassium 3.9 Chloride 120 H Carbon Dioxide 22 BUN 30 H Creatinine 1.50 H Estimated GFR 45.9 L BUN/Creatinine Ratio 20.0 Glucose 102 Calcium 7.8 L Magnesium 2.0 Total Bilirubin 0.3 AST 47 ALT 11 Alkaline Phosphatase 63 Total Protein 5.4 L Albumin 2.5 L Globulin 2.9 Albumin/Globulin Ratio 0.9 L Procalcitonin < 0.05 Assessment & Plan Assessment & Plan narrative: Dion Suresh is a 74-year-old homeless gentleman who is a poor and unreliable historian with past medical history significant for hypertension, hyp erlipidemia, BPH status post TURP, urinary incontinence and probable Parkinson's disease who presented to the ED via EMS due to being cold. 1. Acute infected left hip wound with possible organized hematoma and mild surrounding cellulitis, present on admission. Active. -Patient has developed a large infected wound with black eschar and possible organized hematoma to left hip. Surrounding skin is mildly cellulitic in appearance with redness and warmth. No drainage noted. -Right hip x-ray shows no evidence of osteomyelitis. -Received ciprofloxacin 500 mg PO in ED. Continue ceftriaxone 2 g IV daily. -Consulted wound care for evaluation and treatment. We appreciate Dr. Romo's time and care of the patient -Consulted general surgery for possible wound debridement and Dr. Mcgregor plans to take patient to the OR later this afternoon. Patient has been NPO since midnight. 2. Acute kidney injury, present on admission. Active. -Multifactorial and secondary to medication (Zosyn), prerenal azotemia from severe dehydration and ATN from post-op hypotension. -Initial creatinine 1.0. Creatinine elevated to 1.3 then normalized likely due to Zosyn and severe dehydration. Creatinine then trended up to 1.5 today likely due to post-op hypotension. -Continue IV fluids with 0.45% normal saline at 75 mL/hr. Encourage PO intake of fluids. -Avoid nephrotoxic agents. -Continue to monitor renal function daily. 3. Acute severe dehydration with hyponatremia, present on admission. Resolving. -Patient presented clinically dehydrated with dry cracked lips, dry oral mucous membranes, delayed capillary refill, and skin tenting. -Resultant mild transaminitis with increase in AST from 28 to 172 and increase in ALT from 16 to 78. Normal bili and alk-phos. -Resultant hypernatremia at 158. Received 1 L of 0.45% normal saline in the ED and continue 0.45% normal saline decreased from 125 to 100 mL/hour. Continue to monitor sodium level and adjust IV fluids as necessary. Sodium level normalizing now 149. 4. Acute hypokalemia, present on admission. Resolved. -Likely secondary to profound dehydration and diarrhea. -Initial potassium level 3.3. Received potassium chloride 40 mEq IV x1 and 40 m Eq PO liquid x2. Continue to monitor potassium level and replete as necessary. Potassium level normalized at 3.6. Received another 40 mEq PO x 1. 5. Acute on chronic severe protein calorie malnutrition, present on admission. Stable. -Related to homelessness and scarcity and inability to obtain nourishment in conjunction with chronic debility as below. -BMI has further decreased from 20.9 to 18.1. -Consulted dietitian and we appreciate her time, recommendations and resources. 6. Acute on chronic debility, deconditioning and failure to thrive, present on admission. Active. -Patient has known progressive worsening generalized weakness, gait instability, and deconditioning (secondary to acute on chronic severe protein calorie malnutrition and muscle loss with probable Parkinson's disease and recurrent UTIs). -Previously consulted palliative Care please see Nica ARIAS's note on 01/05/2020. Plan to follow-up with Nica ARIAS regarding patient. Patient has not followed up as recommended with resources provided. -Consulted [facility] for short and long-term care placement. 7. Right gluteal shear wound versus pressure ulceration, acute on chronic, present on admission. Stable. -Patient has 4 cm shear wound vs decubitus pressure ulceration on right gluteus that does not appear infected. -Continue wound care and perform frequent turns/repositioning every 2 hours. Patient now has an air bed. 8. Probable Parkinson's disease, chronic, present on admission. Stable. -Unclear diagnosis but patient does have and neurology at [facility] started patient on carbidopa/levodopa for which the patient tolerated well. -Patient with extremity rigidity without cogwheeling or tremor. -Continue carbidopa/levodopa 1 tab 3 times daily. 9. Hyperlipidemia, chronic, present on admission. Stable. -Continue home aspirin 81 mg daily and atorvastatin 40 mg daily at bedtime. 10. History of hypertension. -Hypertension not in evident on multiple hospital admissions and ED visits. Patient is not medically treated and takes no antihypertensives and. 11. BPH status post TURP with urinary incontinence, chronic, present on admission. Stable. -Continue oxybutynin 2.5 mg 3 times daily and tamsulosin 0.4 mg daily at bedtime. Code status: Full code VTE prophylaxis: SQ Heparin Disposition: Patient will be ready to discharge in 1-2 days as his infection is treated and he begins to mobilize. He will need assisted facility for rehabilitation and long-term care thereafter if available and have consulted [facility] and palliative care to help facilitate this. Quality VTE Deep Vein Thrombosis/Pulmonary Embolism Present on Admission: No
--- NOTE | 2020-01-25 09:34 | ST.IPTN ---
Visit Care Team Role Provider Type Katia Frances PA-C Primary Care Provider Advanced Prototype Model Maker Address: [address] [place] [address], [facility] [address], [place], [address] HUGO Patel Other Providers Advanced Prototype Model Maker Address: [address] [place] [address], [id number] Benny Jennings MD Other Providers Physician Address: [address] [place] [address], [address], [place], [address] Chuy Romo MD Other Providers Physician Address: [address] [place] [address], [id number] Kat Pettit DO Emergency Provider Physician Referring Provider Address: [address] [place] [address] Annie Hubbard DO Admit Provider Physician Attending Provider Address: [address] [place] [id number] CURING PRESS MAINTAINER Treatment Note CURING PRESS MAINTAINER Treatment Note Start: 01/25/20 09:13 Freq: Status: Active Protocol: Document 01/25/20 09:14 LL (Rec: 01/25/20 09:34 LL [id number]) Speech Pathology Treatment Note Session Time Visit Start Time 08:45 Visit Stop Time 09:10 Total Visit Minutes 25 Setting Treatment Setting Acute Care Visit Type Note Type Treatment Note Subjective Observations/Patient Presentation Patient was sitting upright and eating breakfast throughout the session. Patient presented with no signs/symptoms of aspiration ( e.g., coffee, water, eggs, arabic toast). Patient alert and oriented to self, place, month, and year. Patient unable to orient to date, day of the week, and situation. Objective Treatment Activities CURING PRESS MAINTAINER provided verbal education regarding recommended swallow strategies (e.g., small bites/ sips, sitting upright during meals), speech strategies (e.g ., increase volume to increase speech intelligibility). CURING PRESS MAINTAINER asked patient problem solving questions about this environment, specifically use of call light, which patient was aware but not able to independently demonstrate appropriate use. CURING PRESS MAINTAINER provided verbal education to the communication board to assist with orientation, however, patient's vision impairments prevent him from using board as an external memory aid. Assessment Patient Response to Treatment Fair Rehab Potential Fair Impairments Identified Cognitive-Linguistic Skills, Dysarthria,Problem Solving, Speech Intelligibility Assessment of Improvement No further acute changes. CURING PRESS MAINTAINER noted that patient uses humor to mask cognitive-linguistic deficits when asked problem solving and orientation questions. It appears that patient's current level of cognitive and swallowing function is his baseline. Speech therapy is no longer warranted in this setting. Patient may benefit receiving skilled speech therapy if admitted to a correction facility after discharge from [facility]. Patient's speech remains mlidly unintelligible (e.g., low volume, reduced speech intelligibility). Patient appears not receptive to speech strategies to increase volume and speech intelligibility. Plan Amount of Therapy Recommended No Further Therapy Frequency of Treatment No Further Therapy Therapy Recommendations Discharge from Speech Therapy Comment Appears at baseline for cognitive and swallowing function.
[2020-01-25] MEDS: OXYBUTYNIN 5 MG TABLET 2.5 MG PO ×3 (09:52→20:50)
[2020-01-25] MEDS: CARBIDOPA-LEVODOPA 25/100 TABLET 1 EACH PO ×3 (09:52→20:49)
[2020-01-25] MEDS: HEPARIN 5,000 UNIT/ML VIAL 5000 UNIT SUBCUT ×2 (09:52→20:49)
[2020-01-25] MEDS: ASPIRIN EC 81 MG TABLET PO (09:52)
--- NOTE | 2020-01-25 11:05 | OT.IPRE ---
Current Diagnoses Cellulitis, unspecified (01/22/20) Pressure ulcer of unspecified hip, unspecified stage (01/22/20) Surgery Performed Operation Date: 01/24/20 12:30 Actual Procedures p Incision and Drainage Hip ulcer, eschar removed(Left) - Zev Mcgregor MD Past Medical History (Last Reviewed 01/23/20 @ 18:34 by Benny Jennings MD) Arthritis (Chronic) BPH (benign prostatic hyperplasia) (Chronic) Colon polyps (Resolved) Depression (Chronic) Hernia (Resolved) History of alcohol abuse (Resolved 1980) Hyperlipemia (Chronic) Hypertension (Chronic) Osteopenia (Chronic) Osteoporosis (Chronic) Shoulder pain (Resolved) Urinary retention (Resolved ~04/2017) Surgical History (Last Reviewed 01/23/20 @ 18:34 by Benny Jennings MD) History of cataract removal with insertion of prosthetic lens (02/2016) Hx of cystoscopy (Acute 04/2017) Hx of transurethral resection of prostate (Resolved 04/2017) Status post colectomy (2010) Status post hernia repair (05/2013) Occupational Therapy Inpatient Evaluation/Re-Eval M1 PT/OT-IP Prior Functional Status Start: 01/23/20 16:17 Freq: NEEDED Status: Active Protocol: Document 01/25/20 10:17 [facility] (Rec: 01/25/20 12:29 [facility] [id number]) Medical Review Prior Functional Status Medical History Reviewed Yes Communication Per ED staff (RN): Pt is sometimes able to communicate clearly, variable ability. Pt tends to mumble and hard to understand at times. Mobility and Gait Per ED staff: Mobility capability is variable. Has cane. Has walked in bent forward posture with cane. Does not have walker due to it not fitting into his car. Activities of Daily Living and IADL's Records indicate: Pt is incontinent with urine and feces. Lives in car. Prior Functional Level (Other details) Pt is homeless. Social History Household Members none Living Arrangements Homeless Home Equipment Straight Cane Additional Social History Comment See prior level of function above regarding home status. M2 OT-IP Current Condition Start: 01/23/20 16:17 Freq: Status: Active Protocol: Document 01/25/20 10:17 [facility] (Rec: 01/25/20 12:29 [facility] [id number]) Occupational Therapy Current Condition Current Condition Evaluation Date 01/25/20 Treatment Diagnosis I and D to left hip due to left hip ulcer. Diagnosis Onset Date 01/22/20 Weight Bearing Status Weight Bearing Status Weight Bear as Tolerated M3 OT- IP Subjective and Pain Start: 01/23/20 16:17 Freq: Status: Active Protocol: Document 01/25/20 10:17 [facility] (Rec: 01/25/20 12:29 [facility] [id number]) OT- Subjective Occupational Therapy Visit Type Type Initial Evaluation Visit Start Time 10:17 Visit Stop Time 11:05 Total Visit Minutes 58 Occupational Therapy Visit Comments Patient Comments Pt agreed to try to get up and requesting to use the BSC. Patient/Caregiver Goals Pt wanting to go to penitentiary. OT Pain Assessment Pain When Pain Assessed At Rest Pain Present Pain Present Denied Pain M4 OT- IP ADL's Start: 01/23/20 16:17 Freq: Status: Active Protocol: Document 01/25/20 10:17 [facility] (Rec: 01/25/20 12:29 [facility] [id number]) OT [id number] General Evaluation Self-Feeding Ability Standby Assistance Areas Needing Assistance Opening Containers Comments OT Self-Feeding Comments Assist for set-up. OT ADL-Grooming Comments OT Grooming Comments Pt able to wash his hand after giving him a wash cloth. OT ADL-Dressing General Eval Lower Body Dressing Ability Total Assistance Areas Needing Assistance Underpants/Brief,Socks Comments OT Dressing Comments Total assist for socks and brief. OT ADL-Toileting General Evaluation Toileting Ability Total Assistance Comments OT Toileting Comments Pt incontinent of bowel and bladder. OT ADL-Bathing Bathing Type Bathing Type Sponge Bath General Evaluation Bathing Ability Maximal Assistance Areas Needing Assistance Wash/Dry Back,Wash/Dry Perineal Area,Wash/Dry Lower Extremities Comments OT Bathing Comments Pt just able to assist to wash his hands and arms. Nursing aid and therapist assisted for the rest as pt fatiguing. M6 OT- IP Functional Cognition Start: 01/23/20 16:17 Freq: Status: Active Protocol: Document 01/25/20 10:17 [facility] (Rec: 01/25/20 12:29 [facility] [id number]) Cognitive Factors Limiting Selfcare Function Cognitive Ability Level of Alertness Alert,Confusional State Patient Orientation Name,Place Attention Span Ability Capable of Focused Attention Ability to Follow Commands Able to Follow One Step Commands with Increased Time, Able to Follow One Step Commands with Repetition Memory Description Short Term Impaired Safety Awareness Underestimates Need for Assistance Problem Solving Ability Unable to Identify Errors, Needs Assist to Identify Solutions Cognitive Comments Cognitive Assessment Comments Pt able to participate in conservation and less tangential versus on OT eval. Pt however still needing reminders that he just had I and D of left hip yesterday. Pt a bit impulsive but able to follow simple commands. OT- Vision and Hearing OT- Vision Assessment Vision Assessment Comments Pt states wears glasses but not here in the hospital. M7 OT- IP Mobility and Balance Start: 01/23/20 16:17 Freq: Status: Active Protocol: Document 01/25/20 10:17 [facility] (Rec: 01/25/20 12:29 [facility] [id number]) OT- Bed Mobility Assessment Rolling Type of Rolling Roll to Right Level of Assistance Moderate Assistance Supine to Sit Supine to Sit Assist Maximum Assistance,1 Person Assistance OT-Transfer Assessment Sit to and From Stand Sit to and from Stand Maximum Assistance,1 Person Assistance,2 Person Assistance Transfers Transfer Ability Maximum Assistance,1 Person Assistance,2 Person Assistance Technique Transfer Destination Bed,Bedside Commode Transfer Technique Squat Pivot Devices Transfer Assistive Devices None,Gait Belt Comments Mobility Comments Pt able to stand with OT to FWW with MAX A X 1, with flexed posture. Pt able to take small steps to the side of an inch at a time with heavy use of BUE on the FWW , and leaning a bit on th bed and therapist assist for balance. Otherwise pt 1-2 MAX A squat. OT- Gait Assessment Comments Gait Ability Comments Not at this time. OT- Balance Assessment Sitting Balance and Reactions Static Sitting Balance Ability Fair Dynamic Sitting Balance Ability Poor Standing Balance and Reactions Static Standing Balance Ability Poor Dynamic Standing Balance Ability Poor M8 OT- IP Objective Assessments Start: 01/23/20 16:17 Freq: Status: Active Protocol: Document 01/25/20 10:17 [facility] (Rec: 01/25/20 12:29 [facility] [id number]) OT Gross Range of Motion Upper Extremity Range of Motion Assessment Left Impaired ROM Impairments AROM left shoulder flexion 0- 70. OT Strength Comments Strength Comments RUE proximal to distal 4-/5 to 4/5. LUE 3-/5 to 3+/5. M9 OT- IP Assessment and Plan Start: 01/23/20 16:17 Freq: Status: Active Protocol: Document 01/25/20 10:17 [facility] (Rec: 01/25/20 12:29 [facility] [id number]) OT Summary Assessment and Plan Potential Rehabilitation Potential Fair Analytic Complexity at Evaluation Moderate Summary OT Impairments Range of Motion,Strength, Balance,Coordination, Functional Cognition, Functional Mobility,Grooming, Dressing,Toileting,Bathing, Toilet Transfers,Shower Transfers,Activity Tolerance Progress Towards Goals Slow Progress due to Medical Issues,Slow Progress due to Activity Tolerance,Slow Progress due to Cognition Assessment Summary Pt MOD complexity due to barriers of being homeless, decreased balance, strength, activity tolerance, and now needing extensive assist x2 for all dressing and mobility needs. Pt recent I and D to left hip and will require nursing care whether pt goes to skilled rehab versus senior care care. Goals Self-Feeding Goal Independent Grooming Goal Independent Dressing Goal Minimal Assistance Toileting Goal Minimal Assistance Bathing Goal Moderate Assistance Toilet Transfer Goal Minimal Assistance Shower Transfer Goal Moderate Assistance Days to Meet Goals 15 Frequency of Treatment Frequency Of Treatment Once a Day Treatment Plan OT Treatment Plan ADL Training,Functional Cognition Training,Functional Mobility,Patient/Family Education,Discharge Planning Other Treatment Recommendations and Next Transfer to [facility] with MODA X 2 Treatment Focus Discharge Recommendations OT Discharge Recommendations SNF Rehab,[facility] Transportation Needs at Discharge Wheelchair/Cabulance,Stretcher /Ambulance
--- NOTE | 2020-01-25 12:39 | PT.IIE ---
Current Diagnoses Cellulitis, unspecified (01/22/20) Pressure ulcer of unspecified hip, unspecified stage (01/22/20) Surgery Performed Operation Date: 01/24/20 12:30 Actual Procedures p Incision and Drainage Hip ulcer, eschar removed(Left) - Zev Mcgregor MD Surgical History (Last Reviewed 01/23/20 @ 18:34 by Benny Jennings MD) History of cataract removal with insertion of prosthetic lens (02/2016) Hx of cystoscopy (Acute 04/2017) Hx of transurethral resection of prostate (Resolved 04/2017) Status post colectomy (2010) Status post hernia repair (05/2013) Medical History (Last Reviewed 01/23/20 @ 18:34 by Benny Jennings MD) Arthritis (Chronic) BPH (benign prostatic hyperplasia) (Chronic) Colon polyps (Resolved) Depression (Chronic) Hernia (Resolved) History of alcohol abuse (Resolved 1980) Hyperlipemia (Chronic) Hypertension (Chronic) Osteopenia (Chronic) Osteoporosis (Chronic) Shoulder pain (Resolved) Urinary retention (Resolved ~04/2017) Physical Therapy Inpatient Re-Evaluation M1 PT/OT-IP Prior Functional Status Start: 01/22/20 15:30 Freq: Status: Active Protocol: Document 01/22/20 16:31 LRN (Rec: 01/22/20 16:57 LRN [id number]) Medical Review Prior Functional Status Medical History Reviewed Yes Communication Per ED staff (RN): Pt is sometimes able to communicate clearly, variable ability. Mobility and Gait Per ED staff: Mobility capability is variable. Has cane. Has walked in bent forward posture with cane. Does not have walker due to it not fitting into his car. Activities of Daily Living and IADL's Records indicate: Pt is incontinent with urine and feces. Lives in car. Prior Functional Level (Other details) Pt is homeless. Social History Household Members none Home Equipment Straight Cane Additional Social History Comment See prior level of function above regarding home status. M1 PT/OT-IP Prior Functional Status Start: 01/23/20 16:17 Freq: NEEDED Status: Active Protocol: Document 01/25/20 12:12 AW (Rec: 01/25/20 12:39 AW [id number]) Medical Review Prior Functional Status Medical History Reviewed Yes Communication Pt is sometimes able to communicate clearly, variable ability. Mobility and Gait Mobility capability is variable. Has cane. Has walked in bent forward posture with cane. Does not have walker due to it not fitting into his car. Activities of Daily Living and IADL's Records indicate: Pt is incontinent with urine and feces. Lives in car. Prior Functional Level (Other details) Pt is homeless. Social History Household Members none Living Arrangements Homeless M2 PT-IP Current Condition Start: 01/22/20 15:30 Freq: Status: Active Protocol: Document 01/25/20 12:12 AW (Rec: 01/25/20 12:39 AW [email or web address]) Physical Therapy Current Condition Current Condition Evaluation Date 01/25/20 Treatment Diagnosis acute L hip wound, difficulty in walking Onset Date 01/21/20 Precautions Other Precautions Not safe to stand & ambulate independent. M3 PT-IP Subjective Start: 01/22/20 15:30 Freq: Status: Active Protocol: Document 01/25/20 12:12 AW (Rec: 01/25/20 12:39 AW [email or web address]) Subjective Physical Therapy Visit Type Type Re-Evaluation Visit Start Time 09:40 Visit Stop Time 12:06 Total Visit Minutes 26 Notes Pt underwent sharp debridement left hip, returned to floor care at 1540 yesterday. Number of HARDBOARD PRESS OPERATOR Visits 0 Physical Therapy Visit Comments Patient Comments Pt agreeable to participate with PT and attempt transfer to chair Therapy Pain Assessment Pain When Pain Assessed During Mobility Pain Present Pain Present Pain Reported Location Everywhere Scale Used unable to quantify M4 PT-IP Mobility and Gait Start: 01/22/20 15:30 Freq: Status: Active Protocol: Document 01/25/20 12:12 AW (Rec: 01/25/20 12:39 AW [email or web address]) PT-Bed Mobility Assessment Rolling Type of Rolling Bilateral Supine to Sit Supine to Sit Moderate Assistance,1 Person Assistance,Bedrails Sit to Supine Sit to Supine Moderate Assistance,2 Person Assistance Scooting Scooting to Edge of Bed Minimal Assistance Scooting Up and Down in Bed Dependent PT-Transfer Assessment Sit to and From Stand Sit to and from Stand Maximum Assistance,2 Person Assistance,Use of Upper Extremities Equipment Transfer Assistive Device Gait Belt,Front Wheeled Walker Comments Mobility Comments Pt sitting up in bed up on PT arrival, willing to mobilize as able. He initiated supine to sit but ultimately required mod A x 1 to attain seated position EOB/to right his trunk. In sitting pt demonstrated significant retro and leftward leaning, requiring frequent cues to use hands on bed to support himself. Sitting balance required min assist at all times. Pt attempted sit to stand using FWW max A x 1 but was unable to shift weight forward enough to be successful. He verbalized understanding of technique but was unable to execute safely, requiring therapist assist to block his knees in order to prevent forward slide off the bed. Pt attempted sit to stand once more with max A x 1 with same result. On last attempt, nursing provided assist but pt still unable to shift weight forward enough with max A x 2. Pt required max A to scoot his hips toward HOB before completing sit to supine max A x 2. He was dependent for scooting higher in the bed and mod A x 1 to roll side to side for draw sheet placement. Pt was repositioned in the bed with call light and all needs within reach, nursing attending. Gait Assessment Comments Gait Comments Pt not safe for gait at this time. Stair Climbing Assessment Comments Stair Climbing Comments not appropriate. PT-Balance Assessment Sitting Balance and Reactions Static Sitting Balance Ability Fair Dynamic Sitting Balance Ability Poor Standing Balance and Reactions Static Standing Balance Ability Poor Dynamic Standing Balance Ability Poor Device Used 2 person assist M5 PT-IP Objective Assessments Start: 01/22/20 15:30 Freq: Status: Active Protocol: Document 01/25/20 12:12 AW (Rec: 01/25/20 12:39 AW [email or web address]) Orientation Orientation/Cognition Level of Alertness Alert Orientation Name,Birthday,Month,Place Language Function Ability Garbled Speech Safety Awareness Decreased Safety Awareness Memory Description No Deficits Noted Comments Pt not oriented to situation. He uses humor to deflect when unable to answer questions. At one point, pt stated Would you please just help me back to bed before I kill myself and then noted this was another instance of using humor to deal with his situation. Hospitalist notified. Gross Range of Motion Lower Extremity ROM Assessment Bilaterally Impaired Impairments Lacks ~5-10 degrees knee extension Strength Lower Extremity Strength Assessment Bilaterally Impaired Comments Strength Comments RUE proximal to distal 4-/5 to 4/5. LUE 3-/5 to 3+/5. Coordination Assessment Assessment Coordination Comments ataxic, mild-mod tremors Sensation Assessment Comments Sensation Comments WFL for light touch. Muscle Tone Comments Muscle Tone Comments Rigidity of axial spine. No cogwheeling noted in extremities. M6 PT-IP Treatment Start: 01/22/20 15:30 Freq: Status: Active Protocol: Document 01/25/20 12:12 AW (Rec: 01/25/20 12:39 AW [email or web address]) Physical Therapy Treatment Education Education Provided Safety Other Treatments Other Treatment Performed Provided continuing education on role of PT, plan of care, safety with all mobility, benefits of continued mobility as able. M7 PT-IP Assessment and Plan Start: 01/22/20 15:30 Freq: Status: Active Protocol: Document 01/25/20 12:12 AW (Rec: 01/25/20 12:39 AW [email or web address]) PT Summary Assessment and Plan Potential Rehabilitation Potential Fair Status of Condition at Evaluation Evolving Summary Impairments ROM,Strength,Balance, Coordination,Tone,Cognition, Bed Mobility,Transfers,Gait, Activity Tolerance Assessment Summary Pt is re-evaluated following sharp debridement of acute left hip wound. He required mod A x 1 to complete supine to sit and was unable to safely stand using FWW and max A x 2. Continuing to recommend acute PT in order to progress safe mobility and SNF rehab at discharge to improve function and independence though pt may require long-term placement for assist with all mobility Goals Bed Mobility Goal Independent Transfer Goal Independent Gait Goal Independent,Cane Gait Distance 50' Days to Meet Goals 10 Frequency of Treatment Frequency Of Treatment Twice a Day Treatment Plan Physical Therapy Treatment Plan Bed Mobility Training,Transfer Training,Gait Training, Therapeutic Exercise,Balance Retraining Other Recommendations and Next Treatment bed mobility, standing balance Focus /tolerance Recommendations To Nursing Amount of Assist Needed 2 Person Assist,Mechanical Lift Discharge Recommendations Other Discharge Recommendations Pt home is his car. If pt chooses home he will not be able to use walker and he will need to be able to walk to his car and get in/out of the seat. The pt would be safer with a FWW if he is able to manuever it in/out of his car. Equipment Needed for Home Before FWW if able to use in Discharge discharge environment
--- NOTE | 2020-01-25 15:25 | CM.DPNOTE ---
DCP Cont Reviewed chart. TC received from [facility]- . TC then received from swing beds at [facility] P# [phone] F# [phone], spoke w/ May Reviewed this referral; updated March re: pt's [facility] CM and current search for shelter care. May explained that if pt has met goals at their facility and is ready for DC, they may have to DC him back to his car if parts counterman care facility has not been secured, this BRIM IRONER HAND will relay to pt. May can accept pt for admission; either tomorrow or Wednesday, or when the bed is needed. Faxed updated clinical notes, as requested, including information provided by DAVID Pineda about wound vac, placement and wound care needs. Updated Dr Hubbard today; she feels Wednesday is a realistic goal for medical DC TC again to March; she will plan to order pt's wound vac to be ready for DC Wednesday. DC digital sales planner at [facility] will be Bere on Wednesday/Wednesday P# [phone] Then completed form to request Medicaid Transport, cabulance. [facility] has offered transportation Wednesday from to [facility]. DC planning team will be updated Wednesday on the time that [facility] has availability. P: DC expected Wednesday, to the swing beds at [facility] via cabulance, parts counterman care efforts will need to continue through [facility] KAM Treviño
--- NOTE | 2020-01-25 15:35 | CM.SWNOTE ---
Spoke w/Pedro Cornell, APS title investigator. APS report was filed for self neglect. Pt remains decisional although short term memory loss and cognitive decline has been well documented. Reviewed DCP efforts by this team and reviewed efforts by Yanick Manley at [facility] to secure terminal gauger care . Pedro had planned to meet w/pt and would contact CONTROL CLERK HEAD team w/any pending questions/concerns. KAM Treviño
[2020-01-25] MEDS: SODIUM CHLORIDE 0.45% 1,000 ML 75 ML IV (19:17)
[2020-01-25] MEDS: ATORVASTATIN 20 MG TABLET 40 MG PO (20:49)
[2020-01-25] MEDS: TAMSULOSIN 0.4 MG CAPSULE PO (20:49)
[2020-01-26] VITALS (10 sets, daily range): BP systolic 102–151; BP diastolic 59–81; PULSE 68–89; RESP 16–20; TEMP 36.6–37.6; O2SAT 95–98
[2020-01-26] MEDS: CEFTRIAXONE 2 GM/50 ML FROZ.PIGGY IV (00:44)
[2020-01-26] MEDS: ASPIRIN EC 81 MG TABLET PO (08:30)
[2020-01-26] MEDS: HEPARIN 5,000 UNIT/ML VIAL 5000 UNIT SUBCUT ×2 (08:30→21:33)
[2020-01-26] MEDS: CARBIDOPA-LEVODOPA 25/100 TABLET 1 EACH PO ×3 (08:30→21:33)
[2020-01-26] MEDS: OXYBUTYNIN 5 MG TABLET 2.5 MG PO ×3 (08:31→21:34)
--- NOTE | 2020-01-26 08:44 | CM.DPC ---
DCP continued: EMR reviewed: Bere with [facility] called and requested PT/OT notes as well as Medication list be faxed to them at [phone]. CM/Rn faxed clinicals requested. CM/RN placed a call to [facility] to set up transport time for tomorrow and left a message. Cm/Rn will follow up after morning rounds around 10:30am. Stacie Carrion RN.
--- NOTE | 2020-01-26 09:38 | OT.IP.TRT ---
Current Diagnoses Cellulitis, unspecified (01/22/20) Pressure ulcer of unspecified hip, unspecified stage (01/22/20) Surgery Performed Operation Date: 01/24/20 12:30 Actual Procedures p Incision and Drainage Hip ulcer, eschar removed(Left) - Zev Mcgregor MD Occupational Therapy Treatment Note M2 OT-IP Current Condition Start: 01/23/20 16:17 Freq: Status: Active Protocol: Document 01/25/20 10:17 [facility] (Rec: 01/25/20 12:29 [facility] [id number]) Occupational Therapy Current Condition Current Condition Evaluation Date 01/25/20 Treatment Diagnosis I and D to left hip due to left hip ulcer. Diagnosis Onset Date 01/22/20 Weight Bearing Status Weight Bearing Status Weight Bear as Tolerated M3 OT- IP Subjective and Pain Start: 01/23/20 16:17 Freq: Status: Active Protocol: Document 01/26/20 10:17 [facility] (Rec: 01/26/20 10:26 [facility] [id number]) OT- Subjective Occupational Therapy Visit Type Type Treatment Note Visit Start Time 09:02 Visit Stop Time 09:38 Total Visit Minutes 36 Occupational Therapy Visit Comments Patient Comments Pt finishing breakfast and wanting to use the BSC. Patient/Caregiver Goals To have a place to live. OT Pain Assessment Pain When Pain Assessed At Rest Pain Present Pain Present Pain Reported Location Everywhere Intensity 7 Scale Used Numeric (1 - 10) M4 OT- IP ADL's Start: 01/23/20 16:17 Freq: Status: Active Protocol: Document 01/26/20 10:17 [facility] (Rec: 01/26/20 10:26 [facility] [id number]) OT [id number] Comments OT Self-Feeding Comments Not at meal time. OT ADL-Grooming Comments OT Grooming Comments Pt able to wash his hand after giving him a wash cloth. OT ADL-Dressing General Eval Lower Body Dressing Ability Total Assistance Areas Needing Assistance Underpants/Brief,Socks Comments OT Dressing Comments Total assist for socks and brief. OT ADL-Toileting General Evaluation Toileting Ability Total Assistance Comments OT Toileting Comments Total assist x2 to stand with nursing aid able to assist to clean pt. M6 OT- IP Functional Cognition Start: 01/23/20 16:17 Freq: Status: Active Protocol: Document 01/25/20 10:17 [facility] (Rec: 01/25/20 12:29 [facility] [id number]) Cognitive Factors Limiting Selfcare Function Cognitive Ability Level of Alertness Alert,Confusional State Patient Orientation Name,Place Attention Span Ability Capable of Focused Attention Ability to Follow Commands Able to Follow One Step Commands with Increased Time, Able to Follow One Step Commands with Repetition Memory Description Short Term Impaired Safety Awareness Underestimates Need for Assistance Problem Solving Ability Unable to Identify Errors, Needs Assist to Identify Solutions Cognitive Comments Cognitive Assessment Comments Pt able to participate in conservation and less tangential versus on OT eval. Pt however still needing reminders that he just had I and D of left hip yesterday. Pt a bit impulsive but able to follow simple commands. OT- Vision and Hearing OT- Vision Assessment Vision Assessment Comments Pt states wears glasses but not here in the hospital. M7 OT- IP Mobility and Balance Start: 01/23/20 16:17 Freq: Status: Active Protocol: Document 01/26/20 10:17 [facility] (Rec: 01/26/20 10:26 [facility] [id number]) OT- Bed Mobility Assessment Rolling Type of Rolling Roll to Right Level of Assistance Maximum Assistance Supine to Sit Supine to Sit Assist Maximum Assistance,2 Person Assistance OT-Transfer Assessment Sit to and From Stand Sit to and from Stand Total Assistance,2 Person Assistance Transfers Transfer Ability Total Assistance,2 Person Assistance Technique Transfer Destination Bed,Bedside Commode Transfer Technique Stand Pivot Devices Transfer Assistive Devices None,Gait Belt Comments Mobility Comments Pt noted having more difficulty to get his feet on the floor and not able to assist for transfer as leaning into posterior tilt . Total assist to try to stand at this time. Pt noted increased flexion in his legs, poor safety and balance best to use kayley lift now. OT- Gait Assessment Comments Gait Ability Comments Not at this time. OT- Balance Assessment Sitting Balance and Reactions Static Sitting Balance Ability Poor Dynamic Sitting Balance Ability Poor Standing Balance and Reactions Static Standing Balance Ability Poor Dynamic Standing Balance Ability Poor M8 OT- IP Objective Assessments Start: 01/23/20 16:17 Freq: Status: Active Protocol: Document 01/25/20 10:17 [facility] (Rec: 01/25/20 12:29 [facility] [id number]) OT Gross Range of Motion Upper Extremity Range of Motion Assessment Left Impaired ROM Impairments AROM left shoulder flexion 0- 70. OT Strength Comments Strength Comments RUE proximal to distal 4-/5 to 4/5. LUE 3-/5 to 3+/5. M9 OT- IP Assessment and Plan Start: 01/23/20 16:17 Freq: Status: Active Protocol: Document 01/26/20 10:17 [facility] (Rec: 01/26/20 10:26 [facility] [id number]) OT Summary Assessment and Plan Potential Rehabilitation Potential Fair Analytic Complexity at Evaluation Moderate Summary OT Impairments Range of Motion,Strength, Balance,Coordination, Functional Cognition, Functional Mobility,Grooming, Dressing,Toileting,Bathing, Toilet Transfers,Shower Transfers,Activity Tolerance Progress Towards Goals Slow Progress due to Medical Issues,Slow Progress due to Activity Tolerance,Slow Progress due to Cognition Assessment Summary Pt today not as alert and seeing things on the floor and perseverating on wanting coffee. Pt will benefit from skilled rehab to try to maximize functional mobility and ADL's and afterwards will need LTC. Goals Self-Feeding Goal Independent Grooming Goal Independent Dressing Goal Moderate Assistance Toileting Goal Moderate Assistance Bathing Goal Moderate Assistance Toilet Transfer Goal Moderate Assistance Shower Transfer Goal Moderate Assistance Days to Meet Goals 15 Frequency of Treatment Frequency Of Treatment Once a Day Treatment Plan OT Treatment Plan ADL Training,Functional Cognition Training,Functional Mobility,Patient/Family Education,Discharge Planning Other Treatment Recommendations and Next [place] [facility] [place] Treatment Focus Discharge Recommendations OT Discharge Recommendations SNF Rehab,LTAC Transportation Needs at Discharge Wheelchair/Cabulance,Stretcher /Ambulance
[2020-01-26] MEDS: SODIUM CHLORIDE 0.45% 1,000 ML 75 ML IV (09:49)
--- NOTE | 2020-01-26 12:13 | PC.NURSE ---
Nurse Note Patient remains confused this shift, though patient agreeable with care other than non-compliant with turning, preferring to rest on back despite edu. Wound vac in place, intact and to suction. Pills given in applesauce. Care is ongoing.
--- NOTE | 2020-01-26 15:52 | CM.DPC ---
DCP assessment: EMR reviewed: CM/RN met with patients friend Jean-Claude Mays#[phone] and updated him on patients status and being accepted to [facility]. Cm/RN called [facility] transport at [phone] and they will be ready to transport patient to [facility] at 10am tomorrow 01/27/2020. CM updated patients nurse, SEAFOOD HARVESTER and Hospitalist of transportation time. CM spoke with Medicaid transportation and they have agreed and will have everything set up for [facility] to transport patient tomorrow 01/27/2020. Stacie Carrion RN
--- NOTE | 2020-01-26 17:16 | PT.IPTN ---
Current Diagnoses Cellulitis, unspecified (01/22/20) Pressure ulcer of unspecified hip, unspecified stage (01/22/20) Surgery Performed Operation Date: 01/24/20 12:30 Actual Procedures p Incision and Drainage Hip ulcer, eschar removed(Left) - Zev Mcgregor MD Physical Therapy Treatment Note M2 PT-IP Current Condition Start: 01/22/20 15:30 Freq: Status: Active Protocol: Document 01/25/20 12:12 AW (Rec: 01/25/20 12:39 AW [id number]) Physical Therapy Current Condition Current Condition Evaluation Date 01/25/20 Treatment Diagnosis acute L hip wound, difficulty in walking Onset Date 01/21/20 Precautions Other Precautions Not safe to stand & ambulate independent. M3 PT-IP Subjective Start: 01/22/20 15:30 Freq: Status: Active Protocol: Document 01/26/20 09:02 LJ (Rec: 01/26/20 17:16 LJ [id number]) Subjective Physical Therapy Visit Type Type Treatment Note Visit Start Time 09:02 Visit Stop Time 09:38 Total Visit Minutes 36 Notes Pt in bed upon arrival. Wanting to get onto the [facility] Physical Therapy Visit Comments Patient Comments Unable to hold bowels. Needs to use [facility] Therapy Pain Assessment Pain When Pain Assessed During Mobility Pain Present Pain Present Pain Reported M4 PT-IP Mobility and Gait Start: 01/22/20 15:30 Freq: Status: Active Protocol: Document 01/26/20 09:02 LJ (Rec: 01/26/20 17:16 LJ [id number]) PT-Bed Mobility Assessment Rolling Type of Rolling Roll to Right Level of Assist Maximal Assistance,2 Person Assistance Supine to Sit Supine to Sit Maximum Assistance,2 Person Assistance,Head of Bed Elevated Sit to Supine Sit to Supine Maximum Assistance,2 Person Assistance,Head of Bed Elevated Scooting Scooting to Edge of Bed Dependent PT-Transfer Assessment Sit to and From Stand Sit to and from Stand Total Assistance,2 Person Assistance Equipment Transfer Assistive Device Gait Belt Transfers Transfer Destination Bed,Bedside Commode Transfer Technique Squat Pivot Transfer Ability Level of Assist Total Assistance,2 Person Assistance Comments Mobility Comments Pt requires Tommie x2 for all bed mobility. Unable to follow directions to assist with care. Pt with significant posterior left lean and pushing against PT during assist. Unable to maintain hip or knee extension and will lift his feet off the floor while seated on the [facility]. He is not able to assist in transfer and will require kayley Gait Assessment Comments Gait Comments Pt unable Stair Climbing Assessment Comments Stair Climbing Comments not appropriate. M5 PT-IP Objective Assessments Start: 01/22/20 15:30 Freq: Status: Active Protocol: Document 01/25/20 12:12 AW (Rec: 01/25/20 12:39 AW [id number]) Orientation Orientation/Cognition Level of Alertness Alert Orientation Name,Birthday,Month,Place Language Function Ability Garbled Speech Safety Awareness Decreased Safety Awareness Memory Description No Deficits Noted Comments Pt not oriented to situation. He uses humor to deflect when unable to answer questions. At one point, pt stated Would you please just help me back to bed before I kill myself and then noted this was another instance of using humor to deal with his situation. Hospitalist notified. Gross Range of Motion Lower Extremity ROM Assessment Bilaterally Impaired Impairments Lacks ~5-10 degrees knee extension Strength Lower Extremity Strength Assessment Bilaterally Impaired Comments Strength Comments RUE proximal to distal 4-/5 to 4/5. LUE 3-/5 to 3+/5. Coordination Assessment Assessment Coordination Comments ataxic, mild-mod tremors Sensation Assessment Comments Sensation Comments WFL for light touch. Muscle Tone Comments Muscle Tone Comments Rigidity of axial spine. No cogwheeling noted in extremities. M6 PT-IP Treatment Start: 01/22/20 15:30 Freq: Status: Active Protocol: Document 01/26/20 09:02 (Rec: 01/26/20 17:16 [id number]) Physical Therapy Treatment Education Education Provided Safety M7 PT-IP Assessment and Plan Start: 01/22/20 15:30 Freq: Status: Active Protocol: Document 01/26/20 09:02 (Rec: 01/26/20 17:16 [id number]) PT Summary Assessment and Plan Potential Rehabilitation Potential Fair Status of Condition at Evaluation Evolving Summary Impairments ROM,Strength,Balance, Coordination,Tone,Cognition, Bed Mobility,Transfers,Gait, Activity Tolerance Assessment Summary Pt is MaxAx2 for bed mobility and total assist x2 with transfers. Pt unable to follow directions and has strong posterior lean and flexed knees and hips during transfers and mobility. He was perseverating on getting coffee and pointing to spiders, ants, and a cell phone on his legs and on the floor. Goals Bed Mobility Goal Independent Transfer Goal Independent Gait Goal Independent,Cane Gait Distance 50' Days to Meet Goals 10 Frequency of Treatment Frequency Of Treatment Once a Day Treatment Plan Physical Therapy Treatment Plan Bed Mobility Training,Transfer Training,Gait Training, Therapeutic Exercise,Balance Retraining Other Recommendations and Next Treatment bed mobility, standing balance Focus /tolerance Recommendations To Nursing Amount of Assist Needed 2 Person Assist,Mechanical Lift 1
--- NOTE | 2020-01-26 19:47 | PM.PN.1 ---
Subjective Subjective Date Patient Seen: 01/26/20 Interval history: Dion Suresh is a 74-year-old homeless gentleman who is a poor and unreliable historian with past medical history significant for hypertension, hyperlipidemia, BPH status post TURP, urinary incontinence and probable Parkinson's disease admitted for left hip infected wound. The patient is resting in bed and appears comfortable. His speech is baseline quite garbled with his Parkinson's. He is incontinent but voiding and eliminating without difficulty. He is up with physical and occupational therapy. Exam Vital Signs (past 8 hours): - 01/26/20 11:55 01/26/20 15:49 01/26/20 17:59 Temperature 99.6 F 98.2 F Pulse Rate 79 71 Respiratory Rate 20 19 Blood Pressure 140/64 102/59 L Pulse Oximetry 95 97 97 01/26/20 19:36 Temperature 98.4 F Pulse Rate 68 Respiratory Rate 20 Blood Pressure 112/62 Pulse Oximetry 97 Oxygen Delivery Method Room Air Oxygen Flow Rate 0 Objective Labs Result Diagrams: 01/25/20 07:50 01/25/20 07:50 Assessment & Plan Assessment & Plan narrative: 1. Acute infected left hip wound with possible organized hematoma and mild surrounding cellulitis, present on admission. Active. -Patient developed a large infected wound with black eschar and possible organized hematoma to left hip. -status post excisionally debridement in OR on 01/24/2020 -Right hip x-ray shows no evidence of osteomyelitis. -Continue ceftriaxone 2 g IV daily and switch to cephalexin on discharge to complete 10 day course. -Consulted wound care for evaluation and treatment. We appreciate Dr. Romo's time and care of the patient 2. Acute kidney injury, present on admission. Active. -Multifactorial and secondary to medication (Zosyn), prerenal azotemia from severe dehydration and ATN from post-op hypotension. -Initial creatinine 1.0. Creatinine elevated to 1.3 then up to 1.5 -Continue IV fluids with 0.45% normal saline at 75 mL/hr. Encourage PO intake of fluids. -Avoid nephrotoxic agents. -Continue to monitor renal function daily. 3. Acute severe dehydration with hypernatremia, present on admission. Resolving. -admit sodium 158, last sodium 140, remains hyperchloremic -change IV fluid to D5W at 100 cc/hour -labs in a.m. 4. Acute hypokalemia, present on admission. Resolved. -Likely secondary to profound dehydration and diarrhea. 5. Acute on chronic severe protein calorie malnutrition, present on admission. Stable. -Related to homelessness and scarcity and inability to obtain nourishment in conjunction with chronic debility as below. -BMI has further decreased from 20.9 to 18.1. -Consulted dietitian and we appreciate her time, recommendations and resources. 6. Acute on chronic debility, deconditioning and failure to thrive, present on admission. Active. -Patient has known progressive worsening generalized weakness, gait instability, and deconditioning (secondary to acute on chronic severe protein calorie malnutrition and muscle loss with probable Parkinson's disease and recurrent UTIs). -Previously consulted palliative Care please see Nica ARIAS's note on 01/05/2020. Plan to follow-up with Nica ARIAS regarding patient. Patient has not followed up as recommended with resources provided. -Consulted PHLEBOTOMIST LAB ASSISTANT for short and long-term care placement. 7. Right gluteal shear wound versus pressure ulceration, acute on chronic, present on admission. Stable. -Patient has 4 cm shear wound vs decubitus pressure ulceration on right gluteus that does not appear infected. -Continue wound care and perform frequent turns/repositioning every 2 hours. Patient now has an air bed. 8. Probable Parkinson's disease, chronic, present on admission. Stable. -Unclear diagnosis but patient does have and neurology at [facility] started patient on carbidopa/levodopa for which the patient tolerated well. -Patient with extremity rigidity without cogwheeling or tremor. -Continue carbidopa/levodopa 1 tab 3 times daily. 9. Hyperlipidemia, chronic, present on admission. Stable. -Continue home aspirin 81 mg daily and atorvastatin 40 mg daily at bedtime. 10. BPH status post TURP with urinary incontinence, chronic, present on admission. Stable. -Continue oxybutynin 2.5 mg 3 times daily and tamsulosin 0.4 mg daily at bedtime. Code status: Full code VTE prophylaxis: SQ Heparin Patient with improving stable hospital course and should be ready for discharge Wednesday to [facility] swing bed Quality VTE Deep Vein Thrombosis/Pulmonary Embolism Present on Admission: No
[2020-01-26] MEDS: TAMSULOSIN 0.4 MG CAPSULE PO (21:33)
[2020-01-26] MEDS: ATORVASTATIN 20 MG TABLET 40 MG PO (21:33)
[2020-01-26] MEDS: DEXTROSE 5% WATER 1,000 ML 100 ML IV (22:08)
[2020-01-27] MEDS: CEFTRIAXONE 2 GM/50 ML FROZ.PIGGY IV (00:35)
[2020-01-27] MEDS: ACETAMINOPHEN 650 MG SUPP PR (00:37)
[2020-01-27 01:00] VITALS: BP 118/77; PULSE 69; RESP 16; TEMP 36.6; O2SAT 97
[2020-01-27 04:45] VITALS: BP 106/58; PULSE 65; RESP 16; TEMP 36.4; O2SAT 96
[2020-01-27 05:00] VITALS: O2SAT 96
[2020-01-27 05:58] LABS: BUN Creatinine Ratio 17.5 (6-22); Blood Urea Nitrogen 14 mg/dL (9-20); Calcium 8.4 mg/dL (8.4-10.2); Carbon Dioxide 25 mmol/L (22-32); Chloride 115 mmol/L (98-107); Estimated Glomerular Filt Rate > 60.0 mL/min (>60); Glucose 109 mg/dL (80-110); HEMOLYSIS < 15 (0-50); Potassium 3.3 mmol/L (3.4-5.1); Sodium 144 mmol/L (137-145)
--- NOTE | 2020-01-27 07:45 | P.DS_ITS ---
History of Present Illness History of Present Illness Chief complaint: Cold Narrative: Mr. Dion Brownlee is a 75-year-old male who has a past medical history significant for hypertension, hyperlipidemia, BPH post TURP, urinary incontinence and Parkinson's disease who called EMS because he was cold. The patient is homeless and lives out of his vehicle and is well-known to the facility having been to the ER 5 times and admitted wants so far this year. The patient is a poor historian and provides no other specific complaint other than feeling cold. The patient is discheveled and unkempt and appears malnourished. On examination he is found have a new large lesion lateral left hip with surrounding erythema and tenderness. And a right sacral decubiti with multiple abrasions and skin is excoriation. Again the patient denies specific complaints and denies trauma or injury. He has no chest pain or shortness of breath and denies abdominal pain. He is incontinent urine. Upon arrival to the ER the patient has a temperature of 97.7?, heart rate of 98, blood pressure 132/63, respirations of 14 saturating 96% on room air. Imaging is obtained of the left hip which finds no evidence of osteomyelitis. On laboratory analysis the patient has an elevated white count of 17.7 with left shift, hemoglobin of 16.5 and hematocrit of 48.2 and platelets of 393. On chemistry the patient has a sodium of 158, potassium at 3.3, chloride of 122, CO2 of 20, BUN of 38 and creatinine 1.0 with a nonfasting glucose of 118. TSH is found to be 0.63, procalcitonin is 0.13. While in the ER the patient received 1 L of 0.45 normal saline and Cipro 500 mg p.o.. The patient is admitted to the medicine service for cellulitic left hip lesion with hypernatremia and hypokalemia in the setting of dehydration. Discharge Providers Provider Date of admission: 01/22/20 17:16 Discharge Date: 01/27/20 Primary care physician: Katia Frances PA-C Consults: 01/22/20 13:18 Consult to TANK ERECTOR - Emergency Vehicle Operations Instructor Stat Comment: 01/22/20 21:39 Consult to Dietitian, Adult Routine Comment: Reason For Exam: Malnourished, homeless, hypernatremia, hypokalemia Consult to Discharge Planning Routine Comment: 01/22/20 21:40 Consult to Wound Care Routine Comment: 8 cm x 5 cm eschar wound left hip Consulting Provider: [facility] 01/22/20 21:44 Consult to Speech Therapy Evaluate & Treat Comment: Altered mental status impaired swallowing Physician Instructions: Evaluate and treat 01/23/20 00:52 Consult to Dietitian, Adult Routine Comment: Reason For Exam: cachexic, homeless, multiple pressure wounds 01/23/20 16:25 Consult to General Surgery Routine Comment: Consulting Provider: Benny Jennings Reason for consultation: Left hip decubitus ulcer needs debrided Has provider been notified: Yes 01/24/20 08:53 Consult to Palliative Care Routine Comment: Consulting Provider: Nica Fam 01/25/20 08:39 Consult to Occupational Therapy Evaluate & Treat Comment: Physician Instructions: Evaluate and treat Consult to Physical Therapy Evaluate & Treat Comment: Physician Instructions: Evaluate and Treat Discharge provider: Jeff Staples MD Summary Hospital Course Discharge Diagnosis: 1. Left hip decubitus ulcer with surrounding cellulitis 2. Acute kidney injury 3. Severe dehydration 4. Hypernatremia and hyperchloremia 5. Hypokalemia 6. Severe protein calorie malnutrition 7. Chronic debility 8. Parkinson's disease 9. Right gluteus shear wound versus pressure ulceration 10. Hyperlipidemia 11. Urinary tract infection 12. BPH with LUTS Procedures: Exertional debridement of left hip and wound VAC placement on 01/24/[address] Zev Mcgregor [facility] Course: 1. Acute infected left hip pressure ulceration with organized hematoma and mild surrounding cellulitis, present on admission. Active. -Patient presented with a large infected wound with black eschar and possible organized hematoma to left hip. -status post excisionally debridement in OR on 01/24/2020 -wound VAC placed in OR -Right hip x-ray shows no evidence of osteomyelitis. -wound culture positive for multiple organisms: Providencia, Gram-negative bacilli still unidentified, Streptococcus alactolyticus, diphtheroids -infection treated with ceftriaxone 2 g IV daily, on discharge patient switched to cephalexin 500 mg b.i.d. x5 days Continue ceftriaxone 2 g IV daily and switch to cephalexin on discharge to complete 10 day course. -Consulted wound care for evaluation and treatment. We appreciate Dr. Romo's time and care of the patient -continue wound care management at facility 2. Acute kidney injury, present on admission. Resolved. -Multifactorial and secondary to medication (Zosyn), prerenal azotemia from severe dehydration and ATN from post-op hypotension. -treated with IV fluids for rehydration -Initial creatinine 1.0., peaked at 1.5, down to 0.8 on discharge 3. Acute severe dehydration with hypernatremia, present on admission. Resolved. -admit sodium 158, last sodium 144, last chloride 115 4. Acute hypokalemia, present on admission. Improved. -last serum potassium 3.3 5. Acute on chronic severe protein calorie malnutrition, present on admission. Stable. -Related to homelessness and scarcity and inability to obtain nourishment in [facility] with chronic debility as below. -BMI has further decreased from 20.9 to 18.1. -Consulted dietitian and we appreciate her time, recommendations and resources. 6. Acute on chronic debility, deconditioning and failure to thrive, present on admission. Active. -Patient has known progressive worsening generalized weakness, gait instability, and deconditioning (secondary to acute on chronic severe protein calorie malnutrition and muscle loss with probable Parkinson's disease and recurrent UT Is). -Previously consulted palliative Care please see Nica ARIAS's note on 01/05/2020. Plan to follow-up with Nica ARIAS regarding patient. Patient has not followed up as recommended with resources provided. -Consulted TANK ERECTOR for short and long-term care placement. 7. Right gluteal shear wound versus pressure ulceration, acute on chronic, present on admission. Stable. -Patient has 4 cm shear wound vs decubitus pressure ulceration on right gluteus that does not appear infected. -Continue wound care and perform frequent turns/repositioning every 2 hours. Patient now has an air bed. 8. Probable Parkinson's disease, chronic, present on admission. Stable. -Unclear diagnosis but patient does have and neurology at [facility] started patient on carbidopa/levodopa for which the patient tolerated well. -Patient with extremity rigidity, garbled speech, masked face, rigidity, dysphagia without cogwheeling or tremor. -Continue carbidopa/levodopa 1 tab 3 times daily. -physical therapy has been seen him in hospital. He is max assist 2 person 9. Hyperlipidemia, chronic, present on admission. Stable. -Continue home aspirin 81 mg daily and atorvastatin 40 mg daily at bedtime. 10. BPH status post TURP with urinary incontinence, chronic, present on admissio n. Stable. -Continue oxybutynin 2.5 mg 3 times daily and tamsulosin 0.4 mg daily at bedtime. 11. UTI, present on admission, resolved. -urine culture positive for [id number] Proteus organisms -treated with Rocephin Status at Discharge Cognitive/behavioral status at discharge: at baseline, oriented Functional status at discharge: bed bound Overall status at discharge: patient is not back to baseline Time Spent with Patient Time spent: Greater than 30 minutes Exam Vital Signs (past 8 hours): - 01/27/20 01:00 01/27/20 04:45 01/27/20 05:00 Temperature 97.8 F 97.5 F L Pulse Rate 69 65 Respiratory Rate 16 16 Blood Pressure 118/77 106/58 L Pulse Oximetry 97 96 96 Oxygen Delivery Method Room Air Oxygen Flow Rate 0 Objective Labs Result Diagrams: 01/25/20 07:50 01/27/20 05:10 Labs: Laboratory Results - last 24 hr 01/27/20 05:10 Sodium 144 Potassium 3.3 L Chloride 115 H Carbon Dioxide 25 BUN 14 Creatinine 0.80 Estimated GFR > 60.0 BUN/Creatinine Ratio 17.5 Glucose 109 Calcium 8.4 Discharge Plan Discharge Plan Patient Disposition: Swing Bed[facility] Other facility: [facility] swing bed Consult as needed: Dental, Hearing, Mental health, Podiatry and Vision Discharge orders & Medications Discharge Orders: Discharge (Order); Ordered 01/27/20 Ordered By: Jeff Staples Prescriptions: New acetaminophen 650 mg Suppository 650 mg LA Q4HR PRN (Reason: Fever/Mild Pain (1-3)) Qty: 30 RF: 0 cephalexin 250 mg/5 mL suspension for reconstitution 500 mg PO BID Qty: 100 RF: 0 Continued ergocalciferol (vitamin D2) 50,000 unit capsule 50,000 unit PO QWEEK Qty: 4 RF: 12 atorvastatin 40 mg tablet 40 mg PO BEDTIME Qty: 90 RF: 3 tamsulosin [Flomax] 0.4 mg capsule 0.4 mg PO BEDTIME Qty: 90 RF: 1 carbidopa-levodopa 25-100 mg tablet 1 tab PO TID RF: 0 oxybutynin chloride 5 mg tablet 2.5 mg PO TID RF: 0 aspirin 81 mg Tablet,Delayed Release (Dr/Ec) 81 mg PO DAILY Qty: 30 RF: 0 No Action (DME) Adult Diapers Qty: 30 RF: 12 (DME) DISABLED PARKING PLACARD Qty: 1 RF: 0 Follow up/Referrals: Katia Frances PA-C [Primary Care Provider] - Discharge Health Status Multidrug resistant organism: No MDRO Precautions: [place] Diet/Activity/Treatments Diet: Regular Liquid consistency: Normal/Thin Food texture: Soft Diet comment: dysphagia mechanical soft, thin liquids Discharge Data Primary Care Provider: Katia Frances Quality VTE Deep Vein Thrombosis/Pulmonary Embolism Present on Admission: No
[2020-01-27] MEDS: CARBIDOPA-LEVODOPA 25/100 TABLET 1 EACH PO (07:59)
[2020-01-27] MEDS: ASPIRIN EC 81 MG TABLET PO (08:00)
[2020-01-27] MEDS: OXYBUTYNIN 5 MG TABLET 2.5 MG PO (08:00)
[2020-01-27] MEDS: HEPARIN 5,000 UNIT/ML VIAL 5000 UNIT SUBCUT (08:01)
[2020-01-27 09:00] VITALS: BP 100/55; PULSE 74; RESP 17; TEMP 36.4; O2SAT 95
--- NOTE | 2020-01-27 09:04 | CM.DPC ---
Addendum entered by Stacie Carrion R.N. 01/27/20 11:07: ZEYNEP/Rn called patients Home and community services worker Yanick Bowie at [phone] and his supervisor dry paste Taisha at [phone] and left a voicemail for both letting them know patient was transferred to [facility] swing bed. Stacie Carrion RN Original Note: DCP continued: CM/RN spoke with May at [facility] and arranged transport time for 10aM 01/27/2020. today CM/Rn called Bere at [phone] and discussed patients transport this morning at 10am. Patient will be transported to [facility] by [facility] that was set up through Medicaid transportation. CM/RN spoke with patient about acceptance and transfer to Swing bed and patient stated he was happy to get some help to get better. Bere at [facility] stated she would like D/C summary and orders faxed to her number at [phone] and to [phone] and that nurse report number is [phone]. CM/RN updated patients nurse and gave D/c packet to patients nurse. faxed D/C summary and D/c orders to both faxes listed above. Stacie Carrion RN.
--- NOTE | 2020-01-27 09:51 | PC.NURSE ---
Addendum entered by Jerrell Marshall R.N. 01/27/20 10:31: Telephoned Report to Tiburcio HERNANDEZ at [facility] at 0940 Original Note: Hand off to the [facility] for patient discharge. Patient transferred to wheelchair via [facility] for transport, and brought down to [facility] by JOLENE Stephens. IV and Tele removed.
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
== END 2020-01-27 04:45 | disposition swing bed (61) | DRG 579 ==
LOC: ED 17:14 → AC 17:16
PROVIDERS: Internal Medicine; Nurse Practitioner Adult Health; Surgery; Admitting Provider Internal Medicine; Emergency Provider Emergency Medicine; PCP Physician Assistant; Referring Provider Emergency Medicine; Visit Provider Internal Medicine
PROC: 0KBP0ZZ Excision of Left Hip Muscle, Open Approach (ICD-10-PCS; principal; 2020-01-24 12:30)
DX: L03.116 Cellulitis of left lower limb (principal); L89.224 Pressure ulcer of left hip, stage 4; E43 Unspecified severe protein-calorie malnutrition; Z68.1 Body mass index [BMI] 19.9 or less, adult; E87.0 Hyperosmolality and hypernatremia; N17.9 Acute kidney failure, unspecified; L89.312 Pressure ulcer of right buttock, stage 2; E86.0 Dehydration; E87.6 Hypokalemia; Z59.0 Homelessness; R32 Unspecified urinary incontinence; I10 Essential (primary) hypertension; E78.5 Hyperlipidemia, unspecified; N40.1 Benign prostatic hyperplasia with lower urinary tract symptoms; G20 Parkinson's disease; R29.6 Repeated falls; R62.7 Adult failure to thrive; Z68.26 Body mass index [BMI] 26.0-26.9, adult
CPT/HCPCS: 11042; 36415; 73502; 80048; 80053; 81001; 83605; 83735; 84100; 84145; 84443; 84484; 85025; 87040; 87070; 87075; 87077; 87086; 87176; 87186; 87205; 87797; 92507; 92610; 93005; 97110; 97162; 97164; 97166; 97530; 99232; 99284; J0696; J1644; J2405; J2543; J2704; J3010; J3480; J7050